=== PATIENT | male | born 1955 | race Caucasian/White ===

== ENCOUNTER 2024-03-30 11:48 | Inpatient (IN) | payer MEDICARE, SELFPAY ==
[2024-03-30] VITALS (16 sets, daily range): BP systolic 109–149; BP diastolic 61–87; PULSE 87–99; RESP 12–21; TEMP 36.6; O2SAT 92–100; BMI 26.2
--- NOTE | ~2024-03-30 | CT_ITS ---
EXAMINATION: CT chest abdomen pelvis w con DATE: 04/06/2024 20:05 INDICATION: nausea and vomiting . TECHNIQUE: Computed tomography (CT) of the chest, abdomen, and pelvis was performed with 100 mL Omnip aque-350 intravenous contrast. Automated exposure control and iterative reconstruction technique were employed. The dose-length product was 1479.66 mGy-cm. COMPARISON: X-ray abdomen from 2:52 PM and 7:23 PM. FINDINGS: Exam limited by beam hardening artifact from arm down positioning. CHEST: Thoracic aorta: No significant dilation. No dissection. Lung parenchyma and airways: Bilateral dependent atelectasis/consolidation. Patent airways. Thoracic inlet, axillae and chest wall: No thyroid or soft tissue mass. No axillary lymphadenopathy. Mediastinum: No mass or lymphadenopathy. Heart and pericardium: Normal heart size. Small pericardial fluid collection. Coronary artery calcifications: Moderate. Pleura: Small bilateral pleural fluid collections. Thoracic bones: No acute osseous finding in the chest. ABDOMEN/PELVIS: Liver: Normal. Biliary/Gallbladder: The gallbladder is distended, with wall thickening and moderate surrounding infl ammatory change. No bile duct dilation. Pancreas: Moderate atrophy. Spleen: Normal. Adrenals:No mass. Kidneys: No suspicious mass, obstructing stone, or hydronephrosis. Simple left renal cyst. GI tract: Marked gastric distention. Gastric wall emphysema at the GE junction, cardiac, and gastric fundus, and to a lesser extent in the gastric body and antrum. Mild distal esophageal wall edema. An NG tube coils in the distal esophagus, turning back on itself to terminate in the upper esophagus, in a position that appears higher than in the prior study indicating possible interval repositioning at tempt. No small or large bowel dilation. Normal appendix. Diverticulosis without diverticulitis. The rectum is dilated to 10.1 cm by formed stool, with mild adjacent wall thickening and inflammatory solomon nge. Mild wall edema and pericolonic inflammatory change in the distal sigmoid and more proximal rect um. Mesentery/Peritoneum: No mass or free air. Small volume fluid in the bilateral paracolic gutters. Min imal perisplenic fluid Retroperitoneum: No mass Atherosclerotic abdominal arterial calcifications. Pelvis: Normal urinary bladder. Prostatomegaly. Soft Tissues: Soft tissues and body wall unremarkable. Abdominopelvic bones: No acute osseous finding in the abdomen/pelvis. Recent right hip arthroplasty, with postsurgical changes overlying the soft tissues of the right hip IMPRESSION: Small pericardial effusion. Small bilateral pleural effusion with likely bibasilar dependent atelectasis. Infection is not exclud ed. Malpositioned NG tube which turns back on itself in the distal esophagus and terminates in the upper esophagus. Gastric emphysema, may be secondary to ischemia and/or emphysematous gastritis. Gallbladder hydrops with moderate inflammatory changes suspicious for cholecystitis. No gallbladder w all emphysema detected (which can be a cause of gastric emphysema). Likely fecal impaction. Distal sigmoid and rectal wall edema may reflect a component of colitis, such as stercoral, infectious, ischemic, or inflammatory. Small volume ascites. Results discussed telephonically with Dr. Nagy by Dr. Ayala at 7:35 PM on 04/06/2024. Reviewed, dictated and finalized at location K. LIFT OPERATOR IMPRESSION: Small pericardial effusion. Small bilateral pleural effusion with likely bibasilar dependent atelectasis. I nfection is not excluded. Malpositioned NG tube which turns back on itself in the distal esophagus and te rminates in the upper esophagus. Gastric emphysema, may be secondary to ischemia and/or emphysematous gastritis. Gallbladder hydrops with moderate inflammatory changes suspicious for cholecyst itis. No gallbladder wall emphysema detected (which can be a cause of gastric e mphysema). Likely fecal impaction. Distal sigmoid and rectal wall edema may reflect a comp onent of colitis, such as stercoral, infectious, ischemic, or inflammatory. Small volume ascites. Results discussed telephonically with Dr. Nagy by Dr. Ayala at 7:35 PM on 04/06.
--- NOTE | ~2024-03-30 | XR_ITS ---
XR chest 1V DATE: 03/30/2024 12:09 INDICATION: Fall. Right subcapital femoral neck fracture TECHNIQUE: AP views COMPARISON: None FINDINGS: Heart size appears within normal range. Mild thoracic aortic calcification and unfolding. Mild prominence of the superior mediastinum and right paratracheal area, possibly related to tortuous great vessels. No tracheal deviation. Mild to moderate elevation of the right diaphragm. No pulmonary infiltrate or consolidation, pleural effusion or pulmonary vascular congestion or pneumo thorax is detected. Old healed posterolateral left seventh rib fracture. IMPRESSION: No active cardiopulmonary disease Reviewed, dictated and finalized at location A. UP / OPERATOR
--- NOTE | ~2024-03-30 | XR_ITS ---
XR hip RT 2V w AP pelvis DATE: 03/30/2024 12:06 INDICATION: Fall TECHNIQUE: AP pelvis. 2 views of right hip. COMPARISON: None FINDINGS: Right subcapital femoral neck fracture. No pelvic fracture or bone destruction. Normal alignment at the pubic symphysis and sacral iliac join ts. Hip joint spaces are symmetric and relatively well preserved. No evidence of fracture or dislocat ion of left hip. IMPRESSION: Right subcapital femoral neck fracture Reviewed, dictated and finalized at location A. ATOR ERECTOR
--- NOTE | ~2024-03-30 | XR_ITS ---
Exam: Abdomen 2V HISTORY: persistent nausea/vomiting COMPARISON: None. TECHNIQUE: Supine images of the abdomen and pelvis. FINDINGS: Massive gaseous distention of the stomach for which urgent decompression is recommended. Fecal stasis within the rectum suggesting fecal impaction. Multiple loops of minimally dilated small bowel are also noted. IMPRESSION: Massive gaseous distention of the stomach for which urgent decompression is recommended. Reviewed, dictated and finalized at location A. NE CLEANER IMPRESSION: Massive gaseous distention of the stomach for which urgent decompression is rec ommended.
--- NOTE | ~2024-03-30 | XR_ITS ---
EXAM: XR abdomen gastric tube insert DATE: 04/06/2024 19:28 HISTORY: Ng tube placement . COMPARISON: X-ray chest 03/30/2024. FINDINGS: An NG tube turns back on itself in the GE junction and terminates in the distal esophagus. Marked gastric distention. Suggestion of gas within the gastric wall. Multiple loops of nondistended large and small bowel in the upper abdomen. IMPRESSION: Malpositioned NG tube. Gastric emphysema, as can be seen with emphysematous gastritis, is chemia, perforated ulcer, and trauma. CT of the chest, abdomen, and pelvis already scheduled but should be performed STAT. Results reported telephonically to Bhanu Price RN by Dr. Ayala at 7:40 PM on 04/06/2024. Reviewed, dictated and finalized at location K. AND PELT GRADER IMPRESSION: Malpositioned NG tube. Gastric emphysema, as can be seen with emphy sematous gastritis, ischemia, perforated ulcer, and trauma. CT of the chest, abdomen, and pelvis already scheduled but should be performed STAT. Results reported telephonically to Bhanu Price RN by Dr. Ayala at 7:40 PM on 04/06/2024.
--- NOTE | ~2024-03-30 | US_ITS ---
EXAMINATION: US carotid duplex BI DATE: 03/30/2024 15:39 FIRE TENDER INDICATION: Syncope TECHNIQUE: Grayscale, color Doppler, and pulsed Doppler images of the cervical carotid arteries were obtained. The degree of vessel stenosis is placed in one of the following categories: normal, <50%, 50-69%, >=7 0% but less than near-occlusion, near-occlusion, or total occlusion. Note that percent stenosis relative to normal distal artery lumen diameter is indirectly measured fro m velocity measurements as described originally by Orlando, et al. Radiology 2003; 229:340-346 and upda sharif by Raj Ceron et al STROKE 2012;43(3);915-921. COMPARISON: None. FINDINGS: There is mild atherosclerosis of both carotid arteries. Peak systolic velocity (in cm/s) is detailed below RIGHT: Right common carotid artery (CCA): 74 cm/s. Right internal carotid artery (ICA) PSV: 91 cm/s. Right ICA end-diastolic velocity (EDV): 15 cm/s. Right ICA/CCA PSV ratio is 1.2. Right external carotid artery (ECA): 124cm/s. There is antegrade flow in the right vertebral artery with a LEFT: Left common carotid artery (CCA): 90 cm/s. Left internal carotid artery (ICA) PSV: 88 cm/s. Left ICA end-diastolic velocity (EDV): 18 cm/s. Left ICA/CCA PSV ratio is 1.0. Left external carotid artery (ECA): 136cm/s. There is antegrade flow in the left vertebral artery. IMPRESSION: 1. Less than 50% stenosis in the right internal carotid artery. 2. Less than 50% stenosis in the left internal carotid artery. Reviewed, dictated and finalized at location A. TENDER
--- NOTE | ~2024-03-30 | XR_ITS ---
EXAMINATION: XR hip RT min 2V DATE: 04/01/2024 19:33 INDICATION: Postoperative evaluation TECHNIQUE: 2 views of the right hip were performed FINDINGS: There is a right total hip arthroplasty in expected position. Subcutaneous gas with soft t issue swelling are consistent with recent surgery. Hardware in good position. IMPRESSION: Expected perioperative appearance of a right total hip arthroplasty. Reviewed, dictated and finalized at location A. ORATE TRAFFIC MANAGER
--- NOTE | ~2024-03-30 | XR_ITS ---
XR knee RT 3V DATE: 03/30/2024 12:55 INDICATION: Fall. Right knee injury, pain TECHNIQUE: 3 views COMPARISON: None FINDINGS: There is prominent osteopenia. No fracture or dislocation or joint effusion is evident. No periosteal reaction or bone destruction. Medial and lateral compartment joint spaces are preserved. Slight particular spurring of the patella. Arterial calcification. IMPRESSION: No fracture or dislocation or joint effusion is detected Osteopenia Reviewed, dictated and finalized at location A. ER SPEC
--- NOTE | ~2024-03-30 | XR_ITS ---
Portable chest x-ray Comparison: 04/06/2024 Clinical History: NG tube placement Findings: NG tube is present, however this called back upon itself at the level of the GE junction, with tip projecting back superiorly only to the level of the thoracic inlet. There is left basilar ai rspace consolidation. Right lung clear. Cardiomediastinal silhouette is stable. Bones and soft tissu es are unremarkable. Impression: Malpositioned NG tube, as detailed above, which is curled back upon itself at the level of the GE mian ction with tip projecting back superiorly all the way to the thoracic inlet. Replacement/repositionin g is required. Left basilar consolidation, suspicious for pneumonia. Reviewed, dictated and finalized at location M. NESS TEAM LEADER Impression: Malpositioned NG tube, as detailed above, which is curled back upon itself at t he level of the GE junction with tip projecting back superiorly all the way to the thoracic inlet. Replacement/repositioning is required. Left basilar consolidation, suspicious for pneumonia.
[2024-03-30 11:57] LABS: Basophils Percent Auto 0.2 % (0.2-1.2); Eosinophils Percent Auto 0.3 % (0-4.4); Hematocrit 42.8 % (42.0-52.0); Hemoglobin 15.2 g/dL (14.0-18.0); Immature Granulocyte Absolute 0.11 K/mm3 (0.00-0.031); Immature Granulocyte Percent A 0.7 % (0-0.5); Lymphocytes Absolute Auto 1.44 K/mm3 (0.9-3.2); Lymphocytes Percent Auto 9.5 % (18.3-44.2); Mean Corpuscular HGB Conc 35.5 g/dl (32-36); Mean Corpuscular Hemoglobin 30.6 pg (26-34); Mean Corpuscular Volume 86.3 fl (80-100); Mean Platelet Volume 10.2 fl (7.4-10.4); Monocytes Percent Auto 6.8 % (2.6-8.5); Neutrophils Absolute Auto 12.5 K/mm3 (1.3-6.7); Neutrophils Percent Auto 82.5 % (45.5-73.1); Platelet Count Result 206 k/mm3 (150-375); Red Blood Count 4.96 M/mm3 (4.6-6.20); Red Cell Distribution Width 12.2 % (11.5-14.5); White Blood Count 15.1 K/mm3 (4.5-10.0)
[2024-03-30 12:09] LABS: Alanine Aminotransferase 13 U/L (6-50); Albumin Level 4.2 g/dL (3.5-5.1); Alkaline Phosphatase 64 U/L (38-126); Anion Gap 14 mmol/L (4-12); Aspartate Amino Transferase 19 U/L (17-59); Bilirubin,Total 2.1 mg/dL (0.2-1.3); Blood Urea Nitrogen 24 mg/dL (9-20); Calcium 9.4 mg/dL (8.4-10.2); Carbon Dioxide 23 mmol/L (22-30); Chloride 94 mmol/L (98-107); Estimated CRCL calculation 100 ml/min; Estimated Glomerular Filt Rate > 60; Glucose 300 mg/dL (65-110); Potassium 3.6 mmol/L (3.4-5.0); Sodium 131 mmol/L (137-145)
[2024-03-30 12:12] LABS: INR 1.1; Prothrombin Time 14.8 Seconds (11.1-14.7)
[2024-03-30 12:13] LABS: Partial Thromboplastin Time 28.6 Seconds (22.3-36.8)
[2024-03-30 12:39] LABS: Creatine Kinase 213 U/L (55-170)
--- NOTE | 2024-03-30 12:44 | ED.FALL ---
HPI - Fall General Chief Complaint: Fall Stated Complaint: fa Time Seen by Provider: 03/30/24 11:50 Source: patient and family () Mode of arrival: EMS Limitations: physical limitation History of Present Illness HPI Narrative: Patient presents after a fall that occurred on . Patient states that got up out of bed quickly and it was also dark at the time. He notes that he got dizzy and experienced flashes of light before fainting , losing consciousness and muscle tone. He initially landed on his back and had immediate right hip pain. He was able to scoot from the living room to the bedroom using his left where he laid on the ground since the day of the incident. For his diabetes he is with lispro short acting insuling. Blood glucose 312mg/dL. He is also complaining of right knee pain. His last oral intake was on . He denies being on anticoagulation. Related Data Home Medications ?Medication ?Instructions ?Recorded ?Confirmed ?Last Taken ?Type B12 BYMOUTH 02/15/22 02/15/22 Unknown History cholecalciferol (vitamin D3) 1,250 1,250 mcg PO WEEKLY 02/15/22 03/30/24 Unknown History mcg (50,000 unit) capsule insulin NPH isoph U-100 human 100 88 unit subcut BID 02/15/22 03/30/24 03/28/24 History unit/mL (3 mL) subcutaneous pen (Humulin N NPH U-100 Insulin KwikPen) levothyroxine 200 mcg tablet 200 mcg PO DAILY 02/15/22 03/30/24 03/28/24 History (Synthroid) lisinopril 20 mg tablet 20 mg PO DAILY 02/15/22 03/30/24 03/28/24 History Allergies Allergy/AdvReac Type Severity Reaction Status Date / Time No Known Allergies Allergy Verified 03/30/24 12:14 [facility] Past Medical History Medical History (Updated 03/30/24 @ 21:15 by Jackie Diaz PA-C) Diabetic peripheral neuropathy Hypertension Hyperlipidemia Hypothyroidism Insulin dependent diabetes mellitus Surgical History Surgical History (Updated 03/30/24 @ 21:15 by Jackie Diaz PA-C) History of cataract extraction with lens replacement History of meniscectomy of right knee History of colonoscopy with polypectomy Social History Social History (Updated 03/30/24 @ 21:51 by Suellen Deras MD) Social History: Surrogate medical decision maker: Iwona Ford, spouse ([phone]). Code status: Full code. Smoking status: Never smoker Second hand tobacco smoke exposure: Yes Alcohol intake: former Alcohol use details: 5-6 weekly beers Substance use: never Do You Feel Safe in your Home?: Yes Lack of Transportation: No Lack of Food: Sometimes True Current Housing: I Have Housing Concerned About Future Housing: No Difficulty Paying Gas/Electric Bills: No Difficulty Paying for Meds: No Currently Unemployed: Decline to Answer Education: Decline to Answer Difficulty w/ Childcare or Family Care: No Living arrangements: with family Additional living arrangements comments: Spiritual care concerns: No Exam Narrative: GENERAL: Well-appearing, well-nourished, and in no acute distress. HEAD: Normocephalic, atraumatic. EYES: Non injected, non icteric ENT: Nares clear, no rhinorrhea or epistaxis. Tacky mucous membranes NECK: Supple. CHEST: Speaking in full sentences. No respiratory distress. HEART: Regular rate and rhythm. ABDOMEN: Soft, nondistended. EXTREMITIES: Full Range of motion assessment limited secondary to pain but is able to perform some slight flexion and extension at the knee. Right leg appears rotated externally as well as some shortening. No palpable effusion at right knee. SKIN: Warm, dry, no rash. NEURO: No focal deficits. Alert and oriented x3. PSYCH: Normal mood and affect. Course Vital Signs Vital signs: Vital Signs Temperature 97.8 F 03/30/24 11:28 Pulse Rate 87 03/30/24 11:28 Respiratory Rate 17 03/30/24 11:28 Blood Pressure 149/78 H 03/30/24 11:28 Pulse Oximetry 99 03/30/24 11:28 Oxygen Delivery Room Air 03/30/24 11:28 Temperature 97.8 F 03/30/24 20:25 Pulse Rate 93 03/30/24 20:25 Respiratory Rate 14 03/30/24 20:25 Blood Pressure 130/70 03/30/24 20:25 Pulse Oximetry 95 03/30/24 20:25 Oxygen Delivery Room Air 03/30/24 11:28 MDM - Fall MDM Narrative Medical decision making narrative: Patient presents for was initially described as a fall that occurred on . He has subsequently been lying on the floor. In the emergency department they are afebrile with acceptable vital signs, mild hypertension. Patient states it was not a mechanical fall but rather he stood up out of bed and then became dizzy and saw flashes before he had what appears to be a syncopal episode given that he lost muscle tone and consciousness. Patient given analgesic medication given the obvious femur fracture. He does state that he has been nauseated since as well; Zofran ordered. Given his tacky mucous membranes, will also give 1 L IV fluids. This will also help with patient's hyperglycemia that shows an anion gap but no salvador acidosis. I suspect this to be due to starvation given his KENDRA was on . Patient discussed with on-call orthopedic surgeon Dr Johns. He has a leukocytosis. His hyponatremia of 131 corrects to 134-136 in the setting of hyperglycemia, still present but improved (partial pseudohyponatremia). CPK only mildly elevated, less than expected given duration of time on the ground. Mild azotemia however creatinine is normal. He has an elevated bilirubin. Urine with ketonuria, glucosuria, and proteinuria but otherwise without signs of infection. Ddx indirect hyperbilirubinemia Over production of bilirubin (hemolytic anemia), reduced uptake (cirrhosis or congestive hepatopathy), impaired conjugation, biliary obstruction, hereditary disease (Gilbert syndrome, Jailene-Antoine syndrome, Crigler-Buzz syndrome), medication side effect (allopurinol, anabolic steroids, antibiotics, antimalarials, etc.) Discussed patient with on-call hospitalist Jason ROGERS who recommends admission to a medical surgery telemetry floor given further workup for syncope of unknown etiology. Patient did confirm code status is full code. Diabetes appears poorly controlled given hemoglobin A1c of greater than 10%. Differential Diagnosis Differential diagnosis: Likely syncope, compression fracture, concussion with loss of consciousness, concussion without loss of consciousness and other (Intracranial hemorrhage, hip fracture/dislocation, rhabdomyolysis, spectrum of syncope (tachyarrhythmia/Keenan dysrhythmia, vasovagal, orthostatic, etc.)) Lab Data Attestation: I reviewed the patient's lab results. 03/30/24 11:52 03/30/24 11:52 Labs: Lab Results 03/30/24 03/30/24 03/30/24 Range/Units 11:52 13:04 14:02 WBC 15.1 H (4.5-10.0) K/mm3 RBC 4.96 (4.6-6.20) M/mm3 Hgb 15.2 (14.0-18.0) g/dL Hct 42.8 (42.0-52.0) % MCV 86.3 (80-100) fl MCH 30.6 (26-34) pg MCHC 35.5 (32-36) g/dl RDW 12.2 (11.5-14.5) % Plt Count 206 (150-375) k/mm3 MPV 10.2 (7.4-10.4) fl Immature Gran % (Auto) 0.7 H (0-0.5) % Neut % (Auto) 82.5 H (45.5-73.1) % Lymph % (Auto) 9.5 L (18.3-44.2) % [place] % (Auto) 6.8 (2.6-8.5) % Eos % (Auto) 0.3 (0-4.4) % Baso % (Auto) 0.2 (0.2-1.2) % Lymph # (Auto) 1.44 (0.9-3.2) K/mm3 [place] # (Auto) 1.0 H (0.1-0.6) K/mm3 Eos # (Auto) 0.0 (0-0.3) K/mm3 Baso # (Auto) 0.0 (0.0-0.1) K/mm3 Abs Immat Gran (auto) 0.11 H (0.00-0.031) K/mm3 Absolute Neuts (auto) 12.5 H (1.3-6.7) K/mm3 Absolute Nucleated RBC 0.000 (0.0-0.012) K/mm3 Nucleated RBC % 0.0 (0.0-0.2) % PT 14.8 H (11.1-14.7) Seconds INR 1.1 APTT 28.6 (22.3-36.8) Seconds Sodium 131 L (137-145) mmol/L Potassium 3.6 (3.4-5.0) mmol/L Chloride 94 L (98-107) mmol/L Carbon Dioxide 23 (22-30) mmol/L Anion Gap 14 H (4-12) mmol/L BUN 24 H (9-20) mg/dL Creatinine 0.67 L (0.7-1.3) mg/dL Estim Creat Clear Calc 100 ml/min Estimated GFR > 60 (59 - ) Glucose 300 H (65-110) mg/dL Hemoglobin A1c 10.3 H (<5.7) % Calcium 9.4 (8.4-10.2) mg/dL Total Bilirubin 2.1 H (0.2-1.3) mg/dL Direct Bilirubin 0.0 (0-0.3) mg/dL Indirect Bilirubin 1.3 H (0-1.1) mg/dL AST 19 (17-59) U/L ALT 13 (6-50) U/L Alkaline Phosphatase 64 (38-126) U/L Total Creatine Kinase 213 H (55-170) U/L Troponin I < 0.012 (0.000-0.034) ng/mL Total Protein 7.0 (6.3-8.2) g/dL Albumin 4.2 (3.5-5.1) g/dL Urine Color Yellow (Yellow) Urine Appearance Clear (Clear) Urine pH 5.5 (5.0-9.0) Ur Specific [place] 1.039 H (1.001-1.035) Urine Protein 1+ H (Negative) mg/dL Urine Glucose (UA) 3+ H (Negative) mg/dL Urine Ketones 4+ H (Negative) mg/dL Ur Blood (Man) Negative (Negative) Urine Nitrate Negative (Negative) Urine Bilirubin Negative (Negative) Urine Urobilinogen 1.0 (<2.0) mg/dL Leukocyte Esterase Rfl Negative (Negative) RAKESH/UL Urine RBC 0-2 (0-2) /hpf Urine WBC 0-5 (0-3) /hpf Ur Squamous Epith Cells None seen (Few) /hpf Urine Bacteria None seen /hpf Urine Casts 3-5 Influenza A (RT-PCR) Negative (Negative) Influenza B (RT-PCR) Negative (Negative) RSV (RT-PCR) Negative (Negative) SARS-CoV-2 RNA (RT-PCR) Negative (Negative) Imaging Data Attestation: I personally reviewed and interpreted this imaging study as follows: My impression: Obvious right femoral head/neck fracture Radiologist's impression: Impressions Hip/Pelvis X-Ray 03/30/24 12:17 IMPRESSION: Right subcapital femoral neck fracture Chest X-Ray 03/30/24 12:18 IMPRESSION: No active cardiopulmonary disease Knee X-Ray 03/30/24 13:05 IMPRESSION: No fracture or dislocation or joint effusion is detected Osteopenia ECG Data EKG #1: Attestation: I personally reviewed and interpreted this ECG as follows: ECG completion date: 03/30/24 ECG completion time: 13:06 Interpretation: Normal sinus rhythm at a rate of 90 beats per minute. Patient does have some PVCs. [place] interval 140. QRS 102. QT/QTC 388/435. Poor R-wave progression across the precordial leads. Poor baseline longer/artifact limits full interpretation and there may be T-wave inversion in lead 3 but otherwise appears potentially flat in AVF but otherwise not inverted and is upright in contiguous inferior lead 2. No other T-wave inversions. Discharge Plan Discharge Clinical Impression: Leukocytosis, Hyperglycemia due to diabetes mellitus, Hyponatremia, Elevated CPK, Azotemia, Osteopenia determined by x-ray, Ketonuria, Glucosuria, Proteinuria, Indirect hyperbilirubinemia, Poorly controlled diabetes mellitus Fall Qualifiers: Encounter type: initial encounter Qualified Code(s): W19.XXXA - Unspecified fall, initial encounter Closed subcapital fracture of femur Qualifiers: Encounter type: initial encounter Laterality: right Qualified Code(s): S72.011A - Unspecified intracapsular fracture of right femur, initial encounter for closed fracture Syncope Qualifiers: Encounter type: sequela Patient Disposition: Still a Patient Condition: Stable
[2024-03-30] MEDS: HYDROcodone/acetaminophen (*CRX) 5-325 MG TABLET 1 TAB PO (12:56)
--- NOTE | 2024-03-30 12:56 | ECG_ITS ---
Test Date: 2024-03-30 13:06:56 Measurements Intervals [place] Rate: 90 P: 44 IA: 140 QRS: -60 QRSD: 102 T: -8 QT: 388 QTc: 475 Interpretive Statements SINUS RHYTHM WITH OCCASIONAL SUPRAVENTRICULAR PREMATURE COMPLEXES POSSIBLE ANTERIOR AND INFERIOR MYOCARDIAL INFARCTION , PROBABLY OLD [30 ms Q WAVE IN V3/V4, OR R < 0.2 mV IN V4] ABNORMAL ECG No previous ECG available for comparison Electronically Signed On 03-30-2024 15:34:38 GUEST RELATIONS MANAGER by Ovidio Hill M.D.
[2024-03-30] MEDS: SODIUM CHLORIDE 0.9% IV 1,000 ML 999 ML IV CONT (13:08)
[2024-03-30] MEDS: ONDANSETRON INJ 4 MG/2 ML VIAL IV PUSH (13:09)
[2024-03-30 13:25] LABS: Troponin I < 0.012 ng/mL (0.000-0.034)
[2024-03-30 13:46] LABS: Influenza A QL RT-PCR Negative (Negative); Influenza B QL RT-PCR Negative (Negative); RSV RNA, RT-PCR Negative (Negative); SARS-CoV-2 RNA PCR Negative (Negative)
[2024-03-30] MEDS: HYDROmorphone HCL INJ (*CRX) 1 MG/ML SYR 0.5 MG IV PUSH (14:00)
[2024-03-30 14:02] LABS: Bilirubin Indirect 1.3 mg/dL (0-1.1)
[2024-03-30 14:13] LABS: Add Urine Microscopic? YES; Appearance Urine Clear (Clear); Bacteria Urine None Seen /hpf; Bilirubin Urine Negative (Negative); Blood Urine Negative (Negative); Color Urine Yellow (Yellow); Glucose Urine UA 3+ mg/dL (Negative); Ketones Urine 4+ mg/dL (Negative); Leukocyte Esterase Ur Negative LEU/UL (Negative); Nitrate Urine Negative (Negative); Protein Urine 1+ mg/dL (Negative); RBC Urine 0-2 /hpf (0-2); Specific Grav Ur 1.039 (1.001-1.035); Squamous Epithelial Cell Urine None Seen /hpf (Few); WBC Urine 0-5 /hpf (0-3); pH Urine 5.5 (5.0-9.0)
--- NOTE | 2024-03-30 14:30 | PM.IMHP ---
H&P: HPI History of Present Illness Date/Time: 03/30/24 14:30 Chief Complaint: Right hip pain. Narrative: This is a 69-year-old male with insulin-dependent diabetes, diabetic neuropathy, hypertension, hyperlipidemia, and hypothyroidism who presented to the emergency department via EMS from home for evaluation of right hip pain after a fall. The patient provides the following history. On afternoon he sat up rather quickly to get something in the living room and shortly thereafter he began to feel lightheaded and dizzy. He then had a brief loss of consciousness and woke up on the floor on his right side. He had immediate pain in the right hip and knee and was unable to get himself up. He has apparently been on the floor since that time and he refused to allow his to call 911 until today when their son came and talked him into it. also states that he has had hardly anything to eat in the last 3 days in his had multiple episodes of emesis. Aside from the right hip pain, he does not have any new complaints. He has a history of syncope for which he has been hospitalized and was told it was likely a vasovagal syncope. He does not recall having sensations of racing heart, palpitations, chest pain, pleuritic pain, or shortness of breath prior to the event. He also denies fever, chills, sweats, cold and flu symptoms, hematemesis, diarrhea, and dysuria. In the ED: He was afebrile on arrival with stable vital signs.? Labs are significant for WBC count of 15.1, sodium 131, chloride 94, anion gap 14, BUN 24, creatinine 0.60, glucose 300, total bilirubin 2.1, CK 213, troponin less than 0.012. He tested negative for influenza, RSV, and COVID. Radiographs showed a right subcapital femoral neck fracture and he is being admitted in this setting for pain control and orthopedic consultation. Review of Systems Review of Systems: 12 systems were reviewed and are negative except for as per HPI. [facility] Past Medical History Medical History (Updated 03/30/24 @ 21:15 by Jackie Diaz PA-C) Diabetic peripheral neuropathy Hypertension Hyperlipidemia Hypothyroidism Insulin dependent diabetes mellitus Surgical History Surgical History (Updated 03/30/24 @ 21:15 by Jackie Diaz PA-C) History of cataract extraction with lens replacement History of meniscectomy of right knee History of colonoscopy with polypectomy Social History Social History (Updated 03/30/24 @ 21:16 by Jackie Diaz PA-C) Social History: Surrogate medical decision maker: Iwona Ford, spouse ([phone]). Code status: Full code. Smoking status: Never smoker Second hand tobacco smoke exposure: Yes Alcohol intake: former Alcohol use details: 5-6 weekly beers Substance use: never Do You Feel Safe in your Home?: Yes Lack of Transportation: No Lack of Food: Sometimes True Current Housing: I Have Housing Concerned About Future Housing: No Difficulty Paying Gas/Electric Bills: No Difficulty Paying for Meds: No Currently Unemployed: Decline to Answer Education: Decline to Answer Difficulty w/ Childcare or Family Care: No Spiritual care concerns: No Meds Home Medications and Allergies Home Medications ?Medication ?Instructions ?Recorded ?Confirmed ?Type B12 BYMOUTH 02/15/22 02/15/22 History cholecalciferol (vitamin D3) 1,250 1,250 mcg PO WEEKLY 02/15/22 03/30/24 History mcg (50,000 unit) capsule insulin NPH isoph U-100 human 100 88 unit subcut BID 02/15/22 03/30/24 History unit/mL (3 mL) subcutaneous pen (Humulin N NPH U-100 Insulin KwikPen) insulin regular hum U-500 conc 500 See Rx Instructions subcut 02/15/22 03/30/24 Rx unit/mL(3 mL) subcut pen (Humulin BIDWMEAL 90 days #30 mL R U-500 (Conc) Insulin Kwikpen) levothyroxine 200 mcg tablet 200 mcg PO DAILY 02/15/22 03/30/24 History (Synthroid) lisinopril 20 mg tablet 20 mg PO DAILY 02/15/22 03/30/24 History rosuvastatin 5 mg tablet 5 mg PO DAILY #90 tabs 02/15/22 03/30/24 Rx Allergies Allergy/AdvReac Type Severity Reaction Status Date / Time No Known Allergies Allergy Verified 03/30/24 12:14 Vital Signs Vital Signs - 24 hr 03/30/24 11:28 Temperature 97.8 F Pulse Rate 87 Respiratory Rate 17 Blood Pressure 149/78 H Pulse Oximetry 99 Oxygen Delivery Room Air Exam Narrative: General: Nontoxic-appearing gentleman supine in bed in no acute distress. Weight: 90.4 kg. BMI: 26.3. HEENT: Small abrasion on the bridge of the right side of the nose. PERRL, EOMI. Sclera anicteric. Tacky mucous membranes. Neck: Supple. No midline vertebral tenderness. Respiratory: Lungs are clear to auscultation bilaterally. Cardiovascular: Regular rate and rhythm with S1-S2. Gastrointestinal: Abdomen is soft, nontender, and nondistended with positive bowel sounds. Skin: Warm and dry. Scattered excoriations on the chest. Small abrasion on the elbow. Extremities: No cyanosis, clubbing, or edema. Radial and pedal pulses intact. Musculoskeletal: Right lower extremity shortened and externally rotated. Mild swelling about the hip. Neurological: Alert. Cranial nerves 2-12 are grossly intact. No gross focal deficits to casual conversation. Psychiatric: Pleasant and cooperative with normal mood and affect. H&P: Results Labs Labs: Short CBC 03/30/24 Range/Units 11:52 WBC 15.1 H (4.5-10.0) K/mm3 Hgb 15.2 (14.0-18.0) g/dL Hct 42.8 (42.0-52.0) % Plt Count 206 (150-375) k/mm3 BMP 03/30/24 11:52 Sodium 131 L Potassium 3.6 Chloride 94 L Carbon Dioxide 23 BUN 24 H Creatinine 0.67 L Glucose 300 H Calcium 9.4 Cardiac Enzymes 03/30/24 Range/Units 11:52 Total Creatine Kinase 213 H (55-170) U/L Troponin I < 0.012 (0.000-0.034) ng/mL Liver Function 03/30/24 Range/Units 11:52 Total Bilirubin 2.1 H (0.2-1.3) mg/dL Direct Bilirubin 0.0 (0-0.3) mg/dL AST 19 (17-59) U/L ALT 13 (6-50) U/L Alkaline Phosphatase 64 (38-126) U/L Albumin 4.2 (3.5-5.1) g/dL Impressions Hip/Pelvis X-Ray 03/30/24 12:17 IMPRESSION: 1. Right subcapital femoral neck fracture. Chest X-Ray 03/30/24 12:18 IMPRESSION: 1. No active cardiopulmonary disease. Knee X-Ray 03/30/24 13:05 IMPRESSION: 1. No fracture or dislocation or joint effusion is detected. 2. Osteopenia. Assessment and Plan Assessment and plan (1) Closed subcapital fracture of right femur: Code(s): S72.011A - Unspecified intracapsular fracture of right femur, initial encounter for closed fracture Status: Acute (2) Syncope: Qualifiers: Encounter type: sequela Code(s): R55 - Syncope and collapse Status: Acute (3) Insulin dependent diabetes mellitus: Status: Acute (4) Hypertension: Code(s): I10 - Essential (primary) hypertension Status: Acute (5) Hypothyroidism: Code(s): E03.9 - Hypothyroidism, unspecified Status: Acute (6) Hyperlipidemia: Code(s): E78.5 - Hyperlipidemia, unspecified Status: Acute Plan The patient presented to the emergency department via EMS for evaluation of right hip pain after a fall related to syncope on as detailed in HPI. Labs, imaging, EKG, and all reports were personally reviewed. He has a history of syncope and was hospitalized a few years ago and was told at that time was likely vasovagal syncope. Monitor on telemetry. Echocardiogram and carotid Doppler ultrasounds have been ordered for a syncopal workup. He will be NPO after midnight for probable surgical repair tomorrow. Total CK is very mildly elevated and will be monitored. Glucose is near normal when corrected for sodium. Fractionate bilirubin and monitor. Anion gap is a bit elevated though serum carbon dioxide is within normal limits. Repeat BMP and check beta hydroxybutyrate as his urinalysis is positive for ketones however that may very well be due to the fact that he has not had much to eat in the last 3 days. Continue basal insulin. Initiate sliding scale insulin, Accu-Cheks, and hypoglycemic protocol. Blood pressures were reviewed and they are stable. His home medications will be reviewed and resumed as appropriate. Findings and treatment plan were discussed with the patient. Questions were solicited and answered to satisfaction. The patient's medical management will be taken over by the hospitalist team in a.m. Quality VTE Prophylaxis VTE prophylaxis: mechanical ordered If No VTE Prophylaxis Answer both mechanical and pharmacologic: Reason no pharmacologic proph: medical contraindication (anticipate surgery tomorrow) Hospitalist [facility] Advance Care Plan I have confirmed that the patient's Advanced Care Plan is present, code status is documented, or surrogate decision maker is listed in patient medical record.: Yes Medication Reconciliation I have utilized all available resources to obtain, update and review the patients current medications (includes all prescriptions, OTC, herbals, cannabis, and nutritional supplements).: Yes
[2024-03-30 15:07] LABS: Hemoglobin A1C 10.3 % (<5.7)
--- NOTE | 2024-03-30 18:45 | PC.NURSE ---
This patient, Luis Daniel Ford, was admitted to [facility] Surg Room 325-02. Patient/family oriented to hospital policies and general routines including ID bracelet, bed and alarms, visiting hours, pain management, procedures, bathroom and other care routines, personal items, smoking policy, room service/diet, and visiting hours. Information on how to activate the Rapid Response Team has been discussed. Patient/Family are encouraged to report perceived risks to care and to ask questions if they do not understand what they are told or what they should do.
[2024-03-30 19:15] LABS: Glucose Point of Care 330 mg/dl (65-105)
[2024-03-30] MEDS: INSULIN ASPART (*BKC) 100 UNITS/ML SUB-Q (21:12)
[2024-03-30 22:10] LABS: Anion Gap 9 mmol/L (4-12); Blood Urea Nitrogen 24 mg/dL (9-20); Calcium 8.8 mg/dL (8.4-10.2); Carbon Dioxide 24 mmol/L (22-30); Chloride 97 mmol/L (98-107); Estimated CRCL calculation 119 ml/min; Estimated Glomerular Filt Rate > 60; Glucose 272 mg/dL (65-110); Potassium 3.7 mmol/L (3.4-5.0); Sodium 130 mmol/L (137-145)
[2024-03-30 23:16] LABS: Beta-Hydroxybutyrate/Acetoacetate 2.37 mmol/L (0.02-0.27)
[2024-03-30] MEDS: SODIUM CHLORIDE 0.9% IV 1,000 ML 100 ML IV CONT (23:29)
[2024-03-31] VITALS (7 sets, daily range): BP systolic 139–149; BP diastolic 56–75; PULSE 78–90; RESP 12–16; TEMP 36.8–37.2; O2SAT 94
[2024-03-31 06:42] LABS: Basophils Absolute Auto 0.1 K/mm3 (0.0-0.1); Basophils Percent Auto 0.6 % (0.2-1.2); Eosinophils Absolute Auto 0.1 K/mm3 (0-0.3); Eosinophils Percent Auto 0.6 % (0-4.4); Hematocrit 40.7 % (42.0-52.0); Hemoglobin 14.2 g/dL (14.0-18.0); Immature Granulocyte Absolute 0.08 K/mm3 (0.00-0.031); Immature Granulocyte Percent A 0.9 % (0-0.5); Lymphocytes Absolute Auto 1.03 K/mm3 (0.9-3.2); Lymphocytes Percent Auto 11.5 % (18.3-44.2); Mean Corpuscular HGB Conc 34.9 g/dl (32-36); Mean Corpuscular Hemoglobin 30.3 pg (26-34); Mean Platelet Volume 10.2 fl (7.4-10.4); Monocytes Absolute Auto 0.7 K/mm3 (0.1-0.6); Monocytes Percent Auto 8.1 % (2.6-8.5); Neutrophils Percent Auto 78.3 % (45.5-73.1); Platelet Count Result 165 k/mm3 (150-375); Red Blood Count 4.68 M/mm3 (4.6-6.20); Red Cell Distribution Width 11.9 % (11.5-14.5)
[2024-03-31 06:57] LABS: Alanine Aminotransferase 11 U/L (6-50); Albumin Level 3.5 g/dL (3.5-5.1); Alkaline Phosphatase 52 U/L (38-126); Anion Gap 6 mmol/L (4-12); Aspartate Amino Transferase 21 U/L (17-59); Bilirubin,Total 1.8 mg/dL (0.2-1.3); Blood Urea Nitrogen 21 mg/dL (9-20); Calcium 8.4 mg/dL (8.4-10.2); Carbon Dioxide 28 mmol/L (22-30); Chloride 98 mmol/L (98-107); Estimated CRCL calculation 121 ml/min; Estimated Glomerular Filt Rate > 60; Glucose 244 mg/dL (65-110); Magnesium 2.1 mg/dL (1.6-2.3); Potassium 3.4 mmol/L (3.4-5.0); Sodium 132 mmol/L (137-145)
[2024-03-31 07:31] LABS: Creatine Kinase 247 U/L (55-170)
[2024-03-31 07:52] LABS: Glucose Point of Care 413 mg/dl (65-105)
[2024-03-31 08:05] LABS: Glucose Point of Care 250 mg/dl (65-105)
--- NOTE | 2024-03-31 08:07 | PC.NURSE ---
glucose on a.m labs 244, initial accucheck result was 413 performed by FIELD MARKETING TEAM LEADER, I repeated test to confirm result and it showed 250, charge nurse notified of discrepancy
[2024-03-31 10:06] LABS: Total Triiodothyronine (T3) 0.95 NG/ML (0.97-1.69)
[2024-03-31 11:22] LABS: Glucose Point of Care 313 mg/dl (65-105)
[2024-03-31 11:40] LABS: Glucose Point of Care 225 mg/dl (65-105)
--- NOTE | 2024-03-31 15:27 | P.CONOP_ITS ---
Assessment and Plan Assessment and plan (1) Closed subcapital fracture of femur: Qualifiers: Encounter type: initial encounter Laterality: right Q ualified Code(s): S72.011A - Unspecified intracapsular fracture of right femur, initial encounter for closed fracture <DEIDRE Dumont - Last Filed: 03/31/24 16:41> Code(s): S72.019A - Unspecified intracapsular fracture of unspecified femur, initial encounter for closed fracture <DEIDRE Dumont - Last Filed: 03/31/24 16:41> Status: Acute <DEIDRE Dumont - Last Filed: 03/31/24 16:41> Assessment and Plan: Displaced right hip femoral neck fracture will benefit from bipolar hemiarthroplasty. We discussed the risks, benefits, and alternatives to surgery. Plan for Press-Fit hip. Proceed with bipolar hemiarthroplasty right hip. <Ugo Johns MD - Last Filed: 03/31/24 17:14> History of Present Illness HPI Consult date: 03/31/24 <DEIDRE Dumont - Last Filed: 03/31/24 16:41> 03/31/24 <Ugo Johns MD - Last Filed: 03/31/24 17:14> Chief complaint: R subcapital femur fx, syncope <DEIDRE Dumont - Last Filed: 03/31/24 16:41> Narrative: Patient fell 03/27/24 in his home. History of diabetes, HTN, HLD. Laid on the floor and did not let his call 911 until yesterday. He only ate minimally over the 3 days. No other complains. He is retired. Typical ambulator without gait aids. Notes he is not very active. <DEIDRE Dumont - Last Filed: 03/31/24 16:41> Review of Systems 2 Review of Systems: All systems reviewed & are unremarkable except as noted in HPI and below <DEIDRE Dumont - Last Filed: 03/31/24 16:41> [facility] Past Medical History Medical History: Medical History (Updated 03/31/24 @ 17:11 by Ugo Johns MD) Diabetic peripheral neuropathy Hypertension Hyperlipidemia Hypothyroidism Insulin dependent diabetes mellitus <DEIDRE Dumont - Last Filed: 03/31/24 16:41> Surgical History Surgical History: Surgical History (Updated 03/30/24 @ 21:15 by Jackie Diaz PA-C) History of cataract extraction with lens replacement History of meniscectomy of right knee History of colonoscopy with polypectomy <DEIDRE Dumont - Last Filed: 03/31/24 16:41> Social History Social History: Social History (Updated 03/30/24 @ 21:51 by Suellen Deras MD) Social History: Surrogate medical decision maker: Iwona Ford, spouse ([phone]). Code status: Full code. Smoking status: Never smoker Second hand tobacco smoke exposure: Yes Alcohol intake: former Alcohol use details: 5-6 weekly beers Substance use: never Do You Feel Safe in your Home?: Yes Lack of Transportation: No Lack of Food: Sometimes True Current Housing: I Have Housing Concerned About Future Housing: No Difficulty Paying Gas/Electric Bills: No Difficulty Paying for Meds: No Currently Unemployed: Decline to Answer Education: Decline to Answer Difficulty w/ Childcare or Family Care: No Living arrangements: with family Additional living arrangements comments: Spiritual care concerns: No <DEIDRE Dumont - Last Filed: 03/31/24 16:41> Meds Home Medications and Allergies Home medications: Home Medications ?Medication ?Instructions ?Recorded ?Confirmed ?Type B12 BYMOUTH 02/15/22 02/15/22 History cholecalciferol (vitamin D3) 1,250 1,250 mcg PO WEEKLY 02/15/22 03/30/24 History mcg (50,000 unit) capsule insulin NPH isoph U-100 human 100 88 unit subcut BID 02/15/22 03/30/24 History unit/mL (3 mL) subcutaneous pen (Humulin N NPH U-100 Insulin KwikPen) insulin regular hum U-500 conc 500 See Rx Instructions subcut 02/15/22 03/30/24 Rx unit/mL(3 mL) subcut pen (Humulin BIDWMEAL 90 days #30 mL R U-500 (Conc) Insulin Kwikpen) levothyroxine 200 mcg tablet 200 mcg PO DAILY 02/15/22 03/30/24 History (Synthroid) lisinopril 20 mg tablet 20 mg PO DAILY 02/15/22 03/30/24 History rosuvastatin 5 mg tablet 5 mg PO DAILY #90 tabs 02/15/22 03/30/24 Rx <DEIDRE Dumont - Last Filed: 03/31/24 16:41> Allergies/Adverse reactions: Allergies Allergy/AdvReac Type Severity Reaction Status Date / Time No Known Allergies Allergy Verified 03/30/24 12:14 <DEIDRE Dumont - Last Filed: 03/31/24 16:41> Vital Signs Vital Signs - 24 hr 03/30/24 15:46 03/30/24 16:01 03/30/24 16:17 Temperature Pulse Rate 89 91 89 Respiratory Rate 19 19 16 Blood Pressure 124/73 130/83 109/61 Pulse Oximetry 95 97 96 Oxygen Delivery 03/30/24 16:31 03/30/24 17:01 03/30/24 17:46 Temperature Pulse Rate 91 92 89 Respiratory Rate 13 20 18 Blood Pressure 128/77 115/74 124/68 Pulse Oximetry 96 96 92 Oxygen Delivery 03/30/24 18:01 03/30/24 18:16 03/30/24 20:00 Temperature Pulse Rate 96 92 Respiratory Rate 18 19 Blood Pressure 111/67 120/69 Pulse Oximetry 95 97 Oxygen Delivery Room Air 03/30/24 20:25 03/31/24 00:00 03/31/24 04:00 Temperature 97.8 F Pulse Rate 93 78 90 Respiratory Rate 14 Blood Pressure 130/70 Pulse Oximetry 95 Oxygen Delivery 03/31/24 04:42 03/31/24 07:26 03/31/24 08:00 Temperature 98.3 F Pulse Rate 88 83 Respiratory Rate 14 Blood Pressure 139/75 Pulse Oximetry 94 Oxygen Delivery Room Air 03/31/24 08:00 03/31/24 14:00 Temperature 98.7 F Pulse Rate 839 H 86 Respiratory Rate 16 Blood Pressure 149/69 H Pulse Oximetry 94 Oxygen Delivery <DEIDRE Dumont - Last Filed: 03/31/24 16:41> Exam 2 Narrative: Normal weight 69 y/o Male. Resting comfortably in bed. No pain at rest. Mild swelling. No Edema. No ecchymosis. No erythema. No hematoma. Range of motion limited due to pain. Leg shortened and externally rotated. Calf nontender. Thigh nontender. No varicosities. Distal pulses palpable. <DEIDRE Dumont - Last Filed: 03/31/24 16:41> Results Labs Result Diagrams: 03/31/24 06:27 03/31/24 06:27 <DEIDRE Dumont - Last Filed: 03/31/24 16:41> Labs: Abnormal lab results 03/30/24 03/30/24 03/30/24 Range/Units 19:13 21:29 21:31 Hct (42.0-52.0) % Immature Gran % (Auto) (0-0.5) % Neut % (Auto) (45.5-73.1) % Lymph % (Auto) (18.3-44.2) % Custer # (Auto) (0.1-0.6) K/mm3 Abs Immat Gran (auto) (0.00-0.031) K/mm3 Absolute Neuts (auto) (1.3-6.7) K/mm3 Sodium 130 L (137-145) mmol/L Chloride 97 L (98-107) mmol/L BUN 24 H (9-20) mg/dL Creatinine 0.55 L (0.7-1.3) mg/dL Glucose 272 H (65-110) mg/dL POC Capillary Glucose 330 H (65-105) mg/dl Total Bilirubin (0.2-1.3) mg/dL Total Creatine Kinase (55-170) U/L Total Protein (6.3-8.2) g/dL Beta-Hydroxybutyrate/Acetoacetate 2.37 H (0.02-0.27) mmol/L TSH (Reflex) (0.465-4.68) uIU/mL Total T3 (0.97-1.69) NG/ML 03/31/24 03/31/24 03/31/24 Range/Units 06:27 07:38 07:58 Hct 40.7 L (42.0-52.0) % Immature Gran % (Auto) 0.9 H (0-0.5) % Neut % (Auto) 78.3 H (45.5-73.1) % Lymph % (Auto) 11.5 L (18.3-44.2) % Custer # (Auto) 0.7 H (0.1-0.6) K/mm3 Abs Immat Gran (auto) 0.08 H (0.00-0.031) K/mm3 Absolute Neuts (auto) 7.0 H (1.3-6.7) K/mm3 Sodium 132 L (137-145) mmol/L Chloride (98-107) mmol/L BUN 21 H (9-20) mg/dL Creatinine 0.54 L (0.7-1.3) mg/dL Glucose 244 H (65-110) mg/dL POC Capillary Glucose 413 H 250 H (65-105) mg/dl Total Bilirubin 1.8 H (0.2-1.3) mg/dL Total Creatine Kinase 247 H (55-170) U/L Total Protein 6.0 L (6.3-8.2) g/dL Beta-Hydroxybutyrate/Acetoacetate (0.02-0.27) mmol/L TSH (Reflex) 6.670 H (0.465-4.68) uIU/mL Total T3 0.95 L (0.97-1.69) NG/ML 03/31/24 03/31/24 Range/Units 11:17 11:38 Hct (42.0-52.0) % Immature Gran % (Auto) (0-0.5) % Neut % (Auto) (45.5-73.1) % Lymph % (Auto) (18.3-44.2) % Custer # (Auto) (0.1-0.6) K/mm3 Abs Immat Gran (auto) (0.00-0.031) K/mm3 Absolute Neuts (auto) (1.3-6.7) K/mm3 Sodium (137-145) mmol/L Chloride (98-107) mmol/L BUN (9-20) mg/dL Creatinine (0.7-1.3) mg/dL Glucose (65-110) mg/dL POC Capillary Glucose 313 H 225 H (65-105) mg/dl Total Bilirubin (0.2-1.3) mg/dL Total Creatine Kinase (55-170) U/L Total Protein (6.3-8.2) g/dL Beta-Hydroxybutyrate/Acetoacetate (0.02-0.27) mmol/L TSH (Reflex) (0.465-4.68) uIU/mL Total T3 (0.97-1.69) NG/ML H & H 03/30/24 03/31/24 Range/Units 11:52 06:27 Hgb 15.2 14.2 (14.0-18.0) g/dL Hct 42.8 40.7 L (42.0-52.0) % Coagulation 03/30/24 Range/Units 11:52 INR 1.1 All other labs normal. <DEIDRE Dumont - Last Filed: 03/31/24 16:41> Quality VTE Prophylaxis VTE prophylaxis: mechanical ordered <DEIDRE Dumont - Last Filed: 03/31/24 16:41>
[2024-03-31 16:30] LABS: Glucose Point of Care 229 mg/dl (65-105)
--- NOTE | 2024-03-31 16:50 | P.PNIM_ITS ---
Progress Note: A&P Assessment and Plan (1) Closed subcapital fracture of right femur: Code(s): S72.011A - Unspecified intracapsular fracture of right femur, initial encounter for closed fracture Status: Acute Assessment and Plan: 03/31/24: * Ortho managing. OR tomorrow * PRN pain meds * PRN anti-emetics (2) Syncope: Qualifiers: Encounter type: sequela Code(s): R55 - Syncope and collapse Status: Acute Assessment and Plan: 03/31/24: * Carotid dopplers showing less than 50% stenosis in both LETICIA and LICA. * ECHO: Pending * Telemetry continued. * Bedrest * Fall precautions (3) Insulin dependent diabetes mellitus: Status: Acute Assessment and Plan: 03/31/24: * continue current glycemic management. * Diabetic diet and NPO as per surgery. (4) Hypertension: Code(s): I10 - Essential (primary) hypertension Status: Chronic Assessment and Plan: 03/31/24: * Stable BP. * Continue home medication regimen * Monitor (5) Hypothyroidism: Code(s): E03.9 - Hypothyroidism, unspecified Status: Chronic Assessment and Plan: 03/31/24: * Continue home medication regimen (6) Hyperlipidemia: Code(s): E78.5 - Hyperlipidemia, unspecified Status: Acute Assessment and Plan: 03/31/24: * Continue home medication regimen Plan OR on 04/01/24. Time Spent With Patient Time with patient: 15 - 25 minutes Subjective Date/time seen: 03/31/24 1200 Interval history: This pt was examined at the bedside today awaiting surgical consult from Dr. Johns. He fell and sustained a right subcapital femoral neck fracture. Plan is for him to have surgical repair tomorrow. Pt is without any current complaint other than pain in the right hip. He has no CP or dyspnea. Review of Systems Review of Systems: All systems reviewed & are unremarkable except as noted in HPI and below Exam Narrative: General: Nontoxic-appearing gentleman supine in bed in no acute distress. Weight: 90.4 kg. BMI: 26.3. HEENT: Small abrasion on the bridge of the right side of the nose. PERRL, EOMI. Sclera anicteric. Tacky mucous membranes. Neck: Supple. No midline vertebral tenderness. Respiratory: Lungs are clear to auscultation bilaterally. Cardiovascular: Regular rate and rhythm with S1-S2. Gastrointestinal: Abdomen is soft, nontender, and nondistended with positive bowel sounds. Skin: Warm and dry. Scattered excoriations on the chest. Small abrasion on the elbow. Extremities: No cyanosis, clubbing, or edema. Radial and pedal pulses intact. Musculoskeletal: Right lower extremity shortened and externally rotated. Mild swelling about the hip. Neurological: Alert. Cranial nerves 2-12 are grossly intact. No gross focal deficits to casual conversation. Psychiatric: Pleasant and cooperative with normal mood and affect. Objective Data Vital Signs Vital Signs: Vital Signs - 24 hr 03/30/24 17:01 03/30/24 17:46 03/30/24 18:01 Temperature Pulse Rate 92 89 96 Respiratory Rate 20 18 18 Blood Pressure 115/74 124/68 111/67 Pulse Oximetry 96 92 95 Oxygen Delivery 03/30/24 18:16 03/30/24 20:00 03/30/24 20:25 Temperature 97.8 F Pulse Rate 92 93 Respiratory Rate 19 14 Blood Pressure 120/69 130/70 Pulse Oximetry 97 95 Oxygen Delivery Room Air 03/31/24 00:00 03/31/24 04:00 03/31/24 04:42 Temperature 98.3 F Pulse Rate 78 90 88 Respiratory Rate 14 Blood Pressure 139/75 Pulse Oximetry 94 Oxygen Delivery 03/31/24 07:26 03/31/24 08:00 03/31/24 08:00 Temperature Pulse Rate 83 83 Respiratory Rate Blood Pressure Pulse Oximetry Oxygen Delivery Room Air 03/31/24 14:00 Temperature 98.7 F Pulse Rate 86 Respiratory Rate 16 Blood Pressure 149/69 H Pulse Oximetry 94 Oxygen Delivery Intake/Output Intake/Output: Intake & Output 03/28/24 03/29/24 03/30/24 03/31/24 23:59 23:59 23:59 23:59 Intake Total 1000 Output Total 750 Balance 1000 -750 Meds/Results Medications: Active Medications Generic Name Dose Route Start Last Admin Trade Name Freq PRN Reason Stop Dose Admin Acetaminophen 650 mg 03/30/24 14:27 Acetaminophen 325 Mg Tablet PO Q4H PRN Mild Pain (1-3) or Fever Dextrose 12.5 gm 03/30/24 14:36 Dextrose 50% 25 Gm/50 Ml Syringe IV PUSH PRN PRN Hypoglycemia Protocol Ergocalciferol units 03/31/24 09:00 Ergocalciferol 50,000 Units Capsule PO WEEKLY [facility] Glucagon 1 mg 03/30/24 14:36 Glucagon For Inj 1 Mg Vial IM PRN PRN Hypoglycemia Protocol Glucose 15 gm 03/30/24 14:36 Glucose Oral Gel 15 Gm Of Glucse In 37.5 Gm Tube PO PRN PRN Hypoglycemia Protocol Hydromorphone HCl 0.5 mg 03/30/24 14:27 Hydromorphone Hcl Inj (*Crx) 1 Mg/Ml Syr IV PUSH Q4H PRN Pain Rated 7-10 Dextrose 1,000 mls @ 100 mls/hr 03/30/24 14:36 Dextrose 5% 1,000 Ml IVPB PRN PRN Hypoglycemia Protocol Tranexamic Acid/Sodium Chloride 1,000 mg in 100 mls @ 200 mls/hr 04/01/24 12:00 Tranexamic Acid 1,000mg/[id number] IVPB 04/01/24 12:29 ONCE ONE Cefazolin Sodium 2 gm in 50 mls @ 100 mls/hr 04/01/24 12:00 Ancef 2 Gm/D5w 50 Ml IVPB 04/01/24 12:29 ONCE ONE Insulin Aspart 3 - 6 units 03/30/24 17:00 03/31/24 12:12 Insulin Aspart (*Bkc) 100 Units/Ml SUB-Q Not Given TIDWM [facility] Protocol Insulin Aspart 1 - 3 units 03/30/24 21:00 03/30/24 21:12 Insulin Aspart (*Bkc) 100 Units/Ml SUB-Q 2 units HS [facility] Administration Protocol Levothyroxine Sodium 200 mcg 03/31/24 07:45 03/31/24 08:00 Levothyroxine Sodium 100 Mcg Tablet PO Not Given DAILY@0630 [facility] Lisinopril 20 mg 03/31/24 09:00 Lisinopril 20 Mg Tablet PO DAILY [facility] Miscellaneous Information 1 each 03/31/24 00:01 Ergocalciferol Weekly. What Day Due? XX 04/30/24 00:00 CLARIFY [facility] Ondansetron HCl 4 mg 03/30/24 14:27 Ondansetron Inj 4 Mg/2 Ml Vial IV PUSH Q4H PRN Nausea Perflutren Lipid Microsphere 0 ml 03/30/24 14:36 Perflutren Lipid Microspheres 1.5 Ml Vial Diluted To 10 Ml Total Volume IV PUSH 04/02/24 14:36 ONCE PRN adequate visualization Protocol Rosuvastatin Calcium 5 mg 03/31/24 09:00 Rosuvastatin 5 Mg Tablet PO DAILY [facility] Radiology Results: ITS Impressions Hip/Pelvis X-Ray 03/30/24 12:17 IMPRESSION: Right subcapital femoral neck fracture Chest X-Ray 03/30/24 12:18 IMPRESSION: No active cardiopulmonary disease Knee X-Ray 03/30/24 13:05 IMPRESSION: No fracture or dislocation or joint effusion is detected Osteopenia Carotid Doppler Study 03/30/24 15:39 IMPRESSION: 1. Less than 50% stenosis in the right internal carotid artery. 2. Less than 50% stenosis in the left internal carotid artery. Labs Labs: Laboratory Results - last 24 hr 03/30/24 03/30/24 03/30/24 19:13 21:29 21:31 WBC RBC Hgb Hct MCV MCH MCHC RDW Plt Count MPV Immature Gran % (Auto) Neut % (Auto) Lymph % (Auto) [place] % (Auto) Eos % (Auto) Baso % (Auto) Lymph # (Auto) [place] # (Auto) Eos # (Auto) Baso # (Auto) Abs Immat Gran (auto) Absolute Neuts (auto) Absolute Nucleated RBC Nucleated RBC % Sodium 130 L Potassium 3.7 Chloride 97 L Carbon Dioxide 24 Anion Gap 9 BUN 24 H Creatinine 0.55 L Estim Creat Clear Calc 119 Estimated GFR > 60 Glucose 272 H POC Capillary Glucose 330 H Calcium 8.8 Magnesium Total Bilirubin AST ALT Alkaline Phosphatase Total Creatine Kinase Total Protein Albumin Beta-Hydroxybutyrate/Acetoacetate 2.37 H TSH (Reflex) Free T4 Total T3 03/31/24 03/31/24 03/31/24 06:27 07:38 07:58 WBC 9.0 RBC 4.68 Hgb 14.2 Hct 40.7 L MCV 87.0 MCH 30.3 MCHC 34.9 RDW 11.9 Plt Count 165 MPV 10.2 Immature Gran % (Auto) 0.9 H Neut % (Auto) 78.3 H Lymph % (Auto) 11.5 L [place] % (Auto) 8.1 Eos % (Auto) 0.6 Baso % (Auto) 0.6 Lymph # (Auto) 1.03 [place] # (Auto) 0.7 H Eos # (Auto) 0.1 Baso # (Auto) 0.1 Abs Immat Gran (auto) 0.08 H Absolute Neuts (auto) 7.0 H Absolute Nucleated RBC 0.000 Nucleated RBC % 0.0 Sodium 132 L Potassium 3.4 Chloride 98 Carbon Dioxide 28 Anion Gap 6 BUN 21 H Creatinine 0.54 L Estim Creat Clear Calc 121 Estimated GFR > 60 Glucose 244 H POC Capillary Glucose 413 H 250 H Calcium 8.4 Magnesium 2.1 Total Bilirubin 1.8 H AST 21 ALT 11 Alkaline Phosphatase 52 Total Creatine Kinase 247 H Total Protein 6.0 L Albumin 3.5 Beta-Hydroxybutyrate/Acetoacetate TSH (Reflex) 6.670 H Free T4 1.10 Total T3 0.95 L 03/31/24 03/31/24 03/31/24 11:17 11:38 16:28 WBC RBC Hgb Hct MCV MCH MCHC RDW Plt Count MPV Immature Gran % (Auto) Neut % (Auto) Lymph % (Auto) [place] % (Auto) Eos % (Auto) Baso % (Auto) Lymph # (Auto) [place] # (Auto) Eos # (Auto) Baso # (Auto) Abs Immat Gran (auto) Absolute Neuts (auto) Absolute Nucleated RBC Nucleated RBC % Sodium Potassium Chloride Carbon Dioxide Anion Gap BUN Creatinine Estim Creat Clear Calc Estimated GFR Glucose POC Capillary Glucose 313 H 225 H 229 H Calcium Magnesium Total Bilirubin AST ALT Alkaline Phosphatase Total Creatine Kinase Total Protein Albumin Beta-Hydroxybutyrate/Acetoacetate TSH (Reflex) Free T4 Total T3 Quality VTE Prophylaxis VTE prophylaxis: mechanical ordered
--- NOTE | 2024-03-31 17:45 | PC.NURSE ---
pt has taken what he states is aprox 2 bites of dinner, he states he does not want insulin at this time, he also states that he does not want his blood pressure to drop any more than what it is, I reviewed blood sugar result and VS with pt and his at bedside, he does not want medications at this time and states he will see how it goes
[2024-03-31] MEDS: HYDROmorphone HCL INJ (*CRX) 1 MG/ML SYR 0.5 MG IV PUSH (19:17)
[2024-03-31] MEDS: INSULIN ASPART (*BKC) 100 UNITS/ML SUB-Q (21:01)
[2024-03-31 22:46] LABS: Glucose Point of Care 231 mg/dl (65-105)
[2024-04-01] VITALS (9 sets, daily range): BP systolic 104–154; BP diastolic 60–91; PULSE 76–96; RESP 12–20; TEMP 36.1–36.8; O2SAT 93–100
--- NOTE | 2024-04-01 | ECHO_ITS ---
Patient Info Name: Luis Daniel Ford Age: 69 years : 1955 Gender: Male Ht: 73 in Wt: 199 lbs BSA: 2.17 m2 HR: 88 bpm BP: 146 / 73 mmHg Heart Rhythm: Sinus Rhythm Technical Quality: Poor Exam Date: 04/01/2024 12:53 PM Exam Location: Echo Lab Patient Status: Inpatient Admit Date: 03/30/2024 Staff Ordering Physician: Jackie Diaz PA-C [employer] Equipment Operator: Celio cMclure RDCS Attending Provider: Dede Norton Referring Physician: Emily OLIVEROS; Exam Type: CA echo dop color flow w con Study Info Indications - SYNCOPE Complete two-dimensional, color flow and Doppler transthoracic echocardiogram is performed with contrast to opacify the left ventricle and to improve the deliniation of the left ventricle endocardial borders. Contrast/Agitated Saline Contrast/Ag. Saline: Definity Amount: 2.00 ml Existing IV Access: Yes Reason for Poor Study: poor echocardiographic windows Summary 1. Technically difficult study with limited views. 2. Left ventricular chamber dimension is normal. 3. Left ventricular systolic function is normal, estimated at 65-70%. 4. There is moderately increased left ventricular wall thickness. 5. The left ventricular diastolic function is grade I diastolic dysfunction. 6. Right ventricular chamber dimension is moderately enlarged. 7. Right ventricular systolic function is normal. 8. There is moderate anterior pericardial effusion. No echocardiographic evidence of tamponade. 9. No significant valvular disease noted on this study. Left Ventricle Left ventricular chamber dimension is normal. Left ventricular systolic function is normal, estimated at 65-70%. There is moderately increased left ventricular wall thickness. The left ventricular diastolic function is grade I diastolic dysfunction. Right Ventricle Right ventricular chamber dimension is moderately enlarged. Right ventricular systolic function is normal. Left Atria Left atrial chamber dimension is normal. Right Atria Right atrial chamber dimension is normal. Atrial Septum Intact interatrial septum visualized by color flow imaging. Aortic Valve The aortic valve is not well visualized. There is no aortic valve stenosis. There is no aortic valve regurgitation. Pulmonic Valve The pulmonic valve is not well visualized. There is trace pulmonic regurgitation. Mitral Valve There is trace mitral valve regurgitation. Tricuspid Valve There is trace tricuspid valve regurgitation. Pericardium/Pleural There is moderate anterior pericardial effusion. No echocardiographic evidence of tamponade. Inferior Vena Cava Inferior vena cava is not well visualized. Aorta The aortic root size at the sinus of Valsalva is normal. Left Ventricular Outflow Tract Name Value Normal LVOT 2D LVOT Diameter 2.13 cm LVOT Doppler LVOT Peak Gradient 3 mmHg LVOT Mean Gradient 2 mmHg LVOT VTI 20.29 cm LVOT VTI/AV VTI Ratio 0.86 LVOT Stroke Volume 72.40 ml LVOT CO 3.65 l/min LVOT CI 1.68 L/min/m2 Pulmonic Valve Name Value Normal RVOT Doppler RVOT Peak Gradient 4 mmHg PV Doppler PV Peak Gradient 4 mmHg PV Regurgitation Doppler DC Peak End Diastolic Velocity 89.41 cm/s Mitral Valve Name Value Normal MV Doppler MV Decel [place] 206.67 cm/s2 MV PHT 0 s MV Area (PHT) 3.92 cm2 4.00-5.00 MV Diastolic Function MV E Peak Velocity 40.01 cm/s MV A Peak Velocity 75.09 cm/s MV E/A 0.53 MV Decel Time 0 s MV Annular TDI MV E/e' (Septal) 10.07 <=8.00 MV E/e' (Lateral) 5.42 <=8.00 MV E/e' (Average) 7.75 Aorta Name Value Normal Ascending Aorta Ao Root Diameter (MM) 3.11 cm Ao Root Diam Index (MM) 1.44 cm/m2 Aortic Valve Name Value Normal AV Doppler AV Peak Velocity 149.54 cm/s AV Peak Gradient 5 mmHg AV Mean Gradient 3 mmHg AV VTI 23.61 cm AV Area (Cont Eq VTI) 3.07 cm2 >=3.00 AV Area (Cont Eq Mathew) 2.45 cm2 AV Regurgitation 2D LVOT Area 3.57 cm2 Ventricles Name Value Normal LV Dimensions 2D/MM IVS Diastolic Thickness (2D) 1.50 cm 0.60-1.00 LVID Diastole (2D) 3.09 cm 4.20-5.80 LVIW Diastolic Thickness (2D) 1.63 cm 0.60-1.00 LVID Systole (2D) 1.93 cm 2.50-4.00 LVOT Diameter 2.13 cm LV Mass (2D Cubed) 176.46 g 88.00-224.00 LV Mass Index (2D Cubed) 0.01 g/cm2 0.00-0.01 Relative Wall Thickness (2D) 1.05 LV Fractional Shortening/Ejection Fraction 2D/MM LV Fractional Shortening (2D) 40 % 25-43 LV EF (2D Teicholz) 71 % 52-72 LV Diastolic Volume (4C MOD) 131.67 ml LV EF (4C MOD) 78 % LV Diastolic Volume (2C MOD) 70.12 ml LV EF (2C MOD) 67 % LV Diastolic Volume (BP MOD) 103.09 ml 62.00-150.00 LV Diastolic Volume Index (BP MOD) 0.05 l/m2 0.03-0.07 LV Systolic Volume (BP MOD) 27.55 ml 21.00-61.00 LV Systolic Volume Index (BP MOD) 0.01 l/m2 0.01-0.03 LV EF (BP MOD) 73 % 52-72 LV Diastolic Length (4C) 8.47 cm LV Systolic Length (4C) 6.11 cm LV Stroke Volume (4C MOD) 102.98 ml Atria Name Value Normal LA Dimensions LA Dimension (MM) 3.92 cm 3.00-4.10 LA Volume (4C A-L) 57.30 ml LA Volume (BP A-L) 51.36 ml RA Dimensions RA Area (4C) 13.32 cm2 <=18.00 Report Signatures
[2024-04-01] MEDS: LEVOTHYROXINE SODIUM 100 MCG TABLET 200 MCG PO (05:41)
[2024-04-01 07:37] LABS: Basophils Absolute Auto 0.1 K/mm3 (0.0-0.1); Basophils Percent Auto 0.8 % (0.2-1.2); Eosinophils Absolute Auto 0.1 K/mm3 (0-0.3); Eosinophils Percent Auto 1.7 % (0-4.4); Hematocrit 40.4 % (42.0-52.0); Hemoglobin 14.4 g/dL (14.0-18.0); Immature Granulocyte Absolute 0.09 K/mm3 (0.00-0.031); Immature Granulocyte Percent A 1.1 % (0-0.5); Lymphocytes Absolute Auto 1.43 K/mm3 (0.9-3.2); Lymphocytes Percent Auto 16.9 % (18.3-44.2); Mean Corpuscular HGB Conc 35.6 g/dl (32-36); Mean Corpuscular Hemoglobin 30.6 pg (26-34); Mean Platelet Volume 9.9 fl (7.4-10.4); Monocytes Absolute Auto 0.8 K/mm3 (0.1-0.6); Monocytes Percent Auto 9.3 % (2.6-8.5); Neutrophils Percent Auto 70.2 % (45.5-73.1); Platelet Count Result 172 k/mm3 (150-375); Red Cell Distribution Width 11.8 % (11.5-14.5); White Blood Count 8.5 K/mm3 (4.5-10.0)
[2024-04-01 07:45] LABS: Glucose Point of Care 192 mg/dl (65-105)
[2024-04-01 07:50] LABS: Alanine Aminotransferase 11 U/L (6-50); Albumin Level 3.4 g/dL (3.5-5.1); Alkaline Phosphatase 54 U/L (38-126); Anion Gap 8 mmol/L (4-12); Aspartate Amino Transferase 17 U/L (17-59); Bilirubin,Total 1.5 mg/dL (0.2-1.3); Blood Urea Nitrogen 15 mg/dL (9-20); Calcium 8.4 mg/dL (8.4-10.2); Carbon Dioxide 29 mmol/L (22-30); Chloride 94 mmol/L (98-107); Estimated CRCL calculation 121 ml/min; Estimated Glomerular Filt Rate > 60; Glucose 189 mg/dL (65-110); Potassium 3.1 mmol/L (3.4-5.0); Sodium 131 mmol/L (137-145)
--- NOTE | 2024-04-01 09:24 | P.PNIM_ITS ---
Progress Note: A&P Assessment and Plan (1) Closed subcapital fracture of right femur: Code(s): S72.011A - Unspecified intracapsular fracture of right femur, initial encounter for closed fracture Status: Inactive Assessment and Plan: * Ortho managing. * plan for OR today after potassium replaced * PRN pain meds * PRN anti-emetics * Robaxin added (2) Syncope: Qualifiers: Encounter type: sequela Code(s): R55 - Syncope and collapse Status: Acute Assessment and Plan: * Carotid dopplers showing less than 50% stenosis in both LETICIA and LICA. * ECHO: 65-70% * Telemetry continued. * Bedrest * Fall precautions (3) Insulin dependent diabetes mellitus: Status: Acute Assessment and Plan: * continue current glycemic management. * Diabetic diet and NPO as per surgery. (4) Hypertension: Code(s): I10 - Essential (primary) hypertension Status: Chronic Assessment and Plan: * Stable BP. * Continue home medication regimen * Monitor (5) Hypothyroidism: Code(s): E03.9 - Hypothyroidism, unspecified Status: Chronic Assessment and Plan: * Continue home medication regimen (6) Hyperlipidemia: Code(s): E78.5 - Hyperlipidemia, unspecified Status: Acute Assessment and Plan: * Continue home medication regimen (7) Total bilirubin, elevated: Code(s): R17 - Unspecified jaundice Status: Acute Assessment and Plan: patient is not jaundiced, patient denies nausea, vomiting, abdominal pain repeat CMP tomorrow Plan OR on 04/01/24. Time Spent With Patient Time with patient: Greater than 35 minutes Subjective Date/time seen: 04/01/24 09:24 Interval history: 69-year-old male with insulin-dependent diabetes, diabetic neuropathy, hypertension, hyperlipidemia, and hypothyroidism who presented to the emergency department via EMS from home for evaluation of right hip pain after a fall with Closed subcapital fracture of femur hypokalemic at 3.1, hyperglycemic at 192, total bili 1.5, liver enzymes normal, patient does not complain of belly pain or nausea or vomiting, however otherwise states that he is unable eat and severely nauseated Review of Systems Review of Systems: 12 systems were reviewed and are negativ e except for as per HPI. All systems reviewed & are unremarkable except as noted in HPI and below Exam Narrative: General: Nontoxic-appearing gentleman supine in bed in no acute distress. Weight: 90.4 kg. BMI: 26.3. HEENT: Small abrasion on the bridge of the right side of the nose. PERRL, EOMI. Sclera anicteric. Tacky mucous membranes. Neck: Supple. No midline vertebral tenderness. Respiratory: Lungs are clear to auscultation bilaterally. Cardiovascular: Regular rate and rhythm with S1-S2. Gastrointestinal: Abdomen is soft, nontender, and nondistended with positive bowel sounds. Skin: Warm and dry. Scattered excoriations on the chest. Small abrasion on the elbow. Extremities: No cyanosis, clubbing, or edema. Radial and pedal pulses intact. Musculoskeletal: Right lower extremity shortened and externally rotated. Mild swelling about the hip. Neurological: Alert. Cranial nerves 2-12 are grossly intact. No gross focal deficits to casual conversation. Psychiatric: Pleasant and cooperative with normal mood and affect. Objective Data Vital Signs Vital Signs: Vital Signs - 24 hr 03/31/24 14:00 03/31/24 19:57 03/31/24 20:00 Temperature 98.7 F 98.9 F Pulse Rate 86 81 Respiratory Rate 16 12 Blood Pressure 149/69 H 149/56 H Pulse Oximetry 94 94 Oxygen Delivery Room Air 04/01/24 03:55 Temperature 98.1 F Pulse Rate 88 Respiratory Rate 14 Blood Pressure 146/73 H Pulse Oximetry 93 Oxygen Delivery Intake/Output Intake/Output: Intake & Output 03/29/24 03/30/24 03/31/24 04/01/24 23:59 23:59 23:59 23:59 Intake Total 1000 620 0 Output Total 1050 Balance 1000 -430 0 Meds/Results Medications: Active Medications Generic Name Dose Route Start Last Admin Trade Name Freq PRN Reason Stop Dose Admin Acetaminophen 650 mg 03/30/24 14:27 Acetaminophen 325 Mg Tablet PO Q4H PRN Mild Pain (1-3) or Fever Dextrose 12.5 gm 03/30/24 14:36 Dextrose 50% 25 Gm/50 Ml Syringe IV PUSH PRN PRN Hypoglycemia Protocol Ergocalciferol units 03/31/24 09:00 Ergocalciferol 50,000 Units Capsule PO WEEKLY [facility] Glucagon 1 mg 03/30/24 14:36 Glucagon For Inj 1 Mg Vial IM PRN PRN Hypoglycemia Protocol Glucose 15 gm 03/30/24 14:36 Glucose Oral Gel 15 Gm Of Glucse In 37.5 Gm Tube PO PRN PRN Hypoglycemia Protocol Hydromorphone HCl 0.5 mg 03/30/24 14:27 03/31/24 19:17 Hydromorphone Hcl Inj (*Crx) 1 Mg/Ml Syr IV PUSH 0.5 mg Q4H PRN Administration Pain Rated 7-10 Dextrose 1,000 mls @ 100 mls/hr 03/30/24 14:36 Dextrose 5% 1,000 Ml IVPB PRN PRN Hypoglycemia Protocol Tranexamic Acid/Sodium Chloride 1,000 mg in 100 mls @ 200 mls/hr 04/01/24 12:00 Tranexamic Acid 1,000mg/[id number] IVPB 04/01/24 12:29 ONCE ONE Cefazolin Sodium 2 gm in 50 mls @ 100 mls/hr 04/01/24 12:00 Ancef 2 Gm/D5w 50 Ml IVPB 04/01/24 12:29 ONCE ONE Insulin Aspart 3 - 6 units 03/30/24 17:00 03/31/24 17:44 Insulin Aspart (*Bkc) 100 Units/Ml SUB-Q Not Given TIDWM [facility] Protocol Insulin Aspart 1 - 3 units 03/30/24 21:00 03/31/24 21:01 Insulin Aspart (*Bkc) 100 Units/Ml SUB-Q 1 units HS [facility] Administration Protocol Levothyroxine Sodium 200 mcg 03/31/24 07:45 04/01/24 05:41 Levothyroxine Sodium 100 Mcg Tablet PO 200 mcg DAILY@0630 [facility] Administration Lisinopril 20 mg 03/31/24 09:00 03/31/24 17:44 Lisinopril 20 Mg Tablet PO Not Given DAILY [facility] Miscellaneous Information 1 each 03/31/24 00:01 Ergocalciferol Weekly. What Day Due? XX 04/30/24 00:00 CLARIFY [facility] Ondansetron HCl 4 mg 03/30/24 14:27 Ondansetron Inj 4 Mg/2 Ml Vial IV PUSH Q4H PRN Nausea Perflutren Lipid Microsphere 0 ml 03/30/24 14:36 Perflutren Lipid Microspheres 1.5 Ml Vial Diluted To 10 Ml Total Volume IV PUSH 04/02/24 14:36 ONCE PRN adequate visualization Protocol Rosuvastatin Calcium 5 mg 03/31/24 09:00 03/31/24 17:44 Rosuvastatin 5 Mg Tablet PO Not Given DAILY [facility] Radiology Results: ITS Impressions Hip/Pelvis X-Ray 03/30/24 12:17 IMPRESSION: Right subcapital femoral neck fracture Chest X-Ray 03/30/24 12:18 IMPRESSION: No active cardiopulmonary disease Knee X-Ray 03/30/24 13:05 IMPRESSION: No fracture or dislocation or joint effusion is detected Osteopenia Carotid Doppler Study 03/30/24 15:39 IMPRESSION: 1. Less than 50% stenosis in the right internal carotid artery. 2. Less than 50% stenosis in the left internal carotid artery. Labs Labs: Laboratory Results - last 24 hr 03/31/24 03/31/24 03/31/24 06:27 11:17 11:38 WBC RBC Hgb Hct MCV MCH MCHC RDW Plt Count MPV Immature Gran % (Auto) Neut % (Auto) Lymph % (Auto) [place] % (Auto) Eos % (Auto) Baso % (Auto) Lymph # (Auto) [place] # (Auto) Eos # (Auto) Baso # (Auto) Abs Immat Gran (auto) Absolute Neuts (auto) Absolute Nucleated RBC Nucleated RBC % Sodium Potassium Chloride Carbon Dioxide Anion Gap BUN Creatinine Estim Creat Clear Calc Estimated GFR Glucose POC Capillary Glucose 313 H 225 H Calcium Total Bilirubin AST ALT Alkaline Phosphatase Total Protein Albumin Total T3 0.95 L Blood Type Antibody Screen 03/31/24 03/31/24 03/31/24 16:28 17:04 20:41 WBC RBC Hgb Hct MCV MCH MCHC RDW Plt Count MPV Immature Gran % (Auto) Neut % (Auto) Lymph % (Auto) [place] % (Auto) Eos % (Auto) Baso % (Auto) Lymph # (Auto) [place] # (Auto) Eos # (Auto) Baso # (Auto) Abs Immat Gran (auto) Absolute Neuts (auto) Absolute Nucleated RBC Nucleated RBC % Sodium Potassium Chloride Carbon Dioxide Anion Gap BUN Creatinine Estim Creat Clear Calc Estimated GFR Glucose POC Capillary Glucose 229 H 231 H Calcium Total Bilirubin AST ALT Alkaline Phosphatase Total Protein Albumin Total T3 Blood Type A Positive Antibody Screen Negative 04/01/24 04/01/24 07:07 07:43 WBC 8.5 RBC 4.70 Hgb 14.4 Hct 40.4 L MCV 86.0 MCH 30.6 MCHC 35.6 RDW 11.8 Plt Count 172 MPV 9.9 Immature Gran % (Auto) 1.1 H Neut % (Auto) 70.2 Lymph % (Auto) 16.9 L [place] % (Auto) 9.3 H Eos % (Auto) 1.7 Baso % (Auto) 0.8 Lymph # (Auto) 1.43 [place] # (Auto) 0.8 H Eos # (Auto) 0.1 Baso # (Auto) 0.1 Abs Immat Gran (auto) 0.09 H Absolute Neuts (auto) 6.0 Absolute Nucleated RBC 0.000 Nucleated RBC % 0.0 Sodium 131 L Potassium 3.1 L Chloride 94 L Carbon Dioxide 29 Anion Gap 8 BUN 15 D Creatinine 0.54 L Estim Creat Clear Calc 121 Estimated GFR > 60 Glucose 189 H POC Capillary Glucose 192 H Calcium 8.4 Total Bilirubin 1.5 H AST 17 ALT 11 Alkaline Phosphatase 54 Total Protein 6.0 L Albumin 3.4 L Total T3 Blood Type Antibody Screen Quality VTE Prophylaxis VTE prophylaxis: mechanical ordered Hospitalist MIPS Advance Care Plan I have confirmed that the patient's Advanced Care Plan is present, code status is documented, or surrogate decision maker is listed in patient medical record.: Yes
[2024-04-01] MEDS: POTASSIUM CHLORIDE INJ 40 MEQ in SODIUM CHLORIDE 0.9% IV 500 ML 130 MEQ IVPB (09:51)
[2024-04-01 11:22] LABS: Glucose Point of Care 181 mg/dl (65-105)
--- NOTE | 2024-04-01 12:23 | WPDHPUPDATE1 ---
History and Physical Update Update Date/Time: 04/01/24 12:23 History and Physical has been reviewed, including an updated exam of the patient. There are NO changes in the patient's condition. Risks, benefits, and alternatives have been discussed and questions answered. Patient agrees to proceed with procedure.
[2024-04-01] MEDS: PERFLUTREN LIPID MICROSPHERES 1.5 ML VIAL DILUTED TO 10 ML TOTAL VOLUME IV PUSH (13:30)
--- NOTE | 2024-04-01 13:52 | IVDEFINITY ---
Prior to administration of IV Definity the patient was educated on the risks and benefits of the imaging enhancing agent including potential adverse side effects. The patient verbalized understanding. Allergies were verified. No exclusion criteria were identified and at least one of the following inclusion criteria were met: 1) physician request, 2) patient technically difficult to image (per the [place] [employer] guidelines of two or more segments not discernable within the apical view), or 3) questionable left ventricular function. ?
--- NOTE | 2024-04-01 16:56 | WPDANESEPPF ---
Anes - Initial Pre Proc Eval Procedure: Operation Date: 04/01/24 17:00 Proposed Procedures p Right Bipolar - Ugo Johns MD Date/Time: 04/01/24 16:56 Surgeon: ANGELINA Maya Pre Op Diagnosis: R subcapital femur fx, syncope Patient Data Age: 69 Gender: M Height: 1.85 m Weight: 91.3 kg Last Vital Signs Temp 36.7 C 04/01/24 03:55 Pulse 88 04/01/24 03:55 Resp 14 04/01/24 03:55 BP 146/73 H 04/01/24 03:55 Pulse Ox 93 04/01/24 03:55 O2 Del Method Room Air 04/01/24 09:50 Allergies Allergy/AdvReac Type Severity Reaction Status Date / Time No Known Allergies Allergy Verified 03/30/24 12:14 Home Medications ?Medication ?Instructions ?Recorded ?Confirmed ?Type B12 BYMOUTH 02/15/22 02/15/22 History cholecalciferol (vitamin D3) 1,250 1,250 mcg PO WEEKLY 02/15/22 03/30/24 History mcg (50,000 unit) capsule insulin NPH isoph U-100 human 100 88 unit subcut BID 02/15/22 03/30/24 History unit/mL (3 mL) subcutaneous pen (Humulin N NPH U-100 Insulin KwikPen) insulin regular hum U-500 conc 500 See Rx Instructions subcut 02/15/22 03/30/24 Rx unit/mL(3 mL) subcut pen (Humulin BIDWMEAL 90 days #30 mL R U-500 (Conc) Insulin Kwikpen) levothyroxine 200 mcg tablet 200 mcg PO DAILY 02/15/22 03/30/24 History (Synthroid) lisinopril 20 mg tablet 20 mg PO DAILY 02/15/22 03/30/24 History rosuvastatin 5 mg tablet 5 mg PO DAILY #90 tabs 02/15/22 03/30/24 Rx Laboratory Tests 03/31/24 03/31/24 04/01/24 17:04 20:41 07:07 WBC 8.5 K/mm3 (4.5-10.0) RBC 4.70 M/mm3 (4.6-6.20) Hgb 14.4 g/dL (14.0-18.0) Hct 40.4 L % (42.0-52.0) MCV 86.0 fl (80-100) MCH 30.6 pg (26-34) MCHC 35.6 g/dl (32-36) RDW 11.8 % (11.5-14.5) Plt Count 172 k/mm3 (150-375) MPV 9.9 fl (7.4-10.4) Immature Gran % (Auto) 1.1 H % (0-0.5) Neut % (Auto) 70.2 % (45.5-73.1) Lymph % (Auto) 16.9 L % (18.3-44.2) [place] % (Auto) 9.3 H % (2.6-8.5) Eos % (Auto) 1.7 % (0-4.4) Baso % (Auto) 0.8 % (0.2-1.2) Lymph # (Auto) 1.43 K/mm3 (0.9-3.2) [place] # (Auto) 0.8 H K/mm3 (0.1-0.6) Eos # (Auto) 0.1 K/mm3 (0-0.3) Baso # (Auto) 0.1 K/mm3 (0.0-0.1) Abs Immat Gran (auto) 0.09 H K/mm3 (0.00-0.031) Absolute Neuts (auto) 6.0 K/mm3 (1.3-6.7) Absolute Nucleated RBC 0.000 K/mm3 (0.0-0.012) Nucleated RBC % 0.0 % (0.0-0.2) Sodium 131 L mmol/L (137-145) Potassium 3.1 L mmol/L (3.4-5.0) Chloride 94 L mmol/L (98-107) Carbon Dioxide 29 mmol/L (22-30) Anion Gap 8 mmol/L (4-12) BUN 15 D mg/dL (9-20) Creatinine 0.54 L mg/dL (0.7-1.3) Estim Creat Clear Calc 121 ml/min Estimated GFR > 60 (59 - ) Glucose 189 H mg/dL (65-110) POC Capillary Glucose 231 H mg/dl (65-105) Calcium 8.4 mg/dL (8.4-10.2) Total Bilirubin 1.5 H mg/dL (0.2-1.3) AST 17 U/L (17-59) ALT 11 U/L (6-50) Alkaline Phosphatase 54 U/L (38-126) Total Protein 6.0 L g/dL (6.3-8.2) Albumin 3.4 L g/dL (3.5-5.1) Blood Type A Positive Antibody Screen Negative 04/01/24 04/01/24 07:43 11:13 WBC RBC Hgb Hct MCV MCH MCHC RDW Plt Count MPV Immature Gran % (Auto) Neut % (Auto) Lymph % (Auto) [place] % (Auto) Eos % (Auto) Baso % (Auto) Lymph # (Auto) [place] # (Auto) Eos # (Auto) Baso # (Auto) Abs Immat Gran (auto) Absolute Neuts (auto) Absolute Nucleated RBC Nucleated RBC % Sodium Potassium Chloride Carbon Dioxide Anion Gap BUN Creatinine Estim Creat Clear Calc Estimated GFR Glucose POC Capillary Glucose 192 H mg/dl 181 H mg/dl (65-105) (65-105) Calcium Total Bilirubin AST ALT Alkaline Phosphatase Total Protein Albumin Blood Type Antibody Screen Patient hx anesthesia problems: none Family hx anesthesia problems: none Results Review: All pre-operative results and documents have been reviewed as part of the pre-operative evaluation. [facility] Past Medical History Medical History Diabetic peripheral neuropathy Hypertension Hyperlipidemia Hypothyroidism Insulin dependent diabetes mellitus Surgical History Surgical History History of cataract extraction with lens replacement History of meniscectomy of right knee History of colonoscopy with polypectomy Social History Social History Social History: Surrogate medical decision maker: Iwona Ford, spouse ([phone]). Code status: Full code. Smoking status: Never smoker Second hand tobacco smoke exposure: Yes Alcohol intake: former Alcohol use details: 5-6 weekly beers Substance use: never Do You Feel Safe in your Home?: Yes Lack of Transportation: No Lack of Food: Sometimes True Current Housing: I Have Housing Concerned About Future Housing: No Difficulty Paying Gas/Electric Bills: No Difficulty Paying for Meds: No Currently Unemployed: Decline to Answer Education: Decline to Answer Difficulty w/ Childcare or Family Care: No Living arrangements: with family Additional living arrangements comments: Spiritual care concerns: No Anes - Eval Final PreProcedure Day of Procedure 04/01/24 16:56 Patient weight: overweight Heart: regular rate and rhythm Lungs: clear to auscultation Airway: Mallampati scale class II Neurological: alert and oriented Last oral intake: >/= 8 hours ASA classification: III Emergent: no Anesthetic plan: proceed Anesthesia type and monitoring: general LMA and standard monitoring Results Review: All pre-operative results and documents have been reviewed as part of the pre-operative evaluation. Informed Consent: The patient's anesthetic plan and its attendant risks and benefits were discussed with the patient/family/POA. Questions were solicited and answers provided to the satisfaction of the patient/family/POA.
[2024-04-01] MEDS: TRANEXAMIC ACID 1,000MG/ISO100 1,000 MG/100 ML BAG 200 MG IVPB (17:43)
[2024-04-01] MEDS: INSULIN HUMAN REGULAR (*BKC) 100 UNITS/ML 6 UNITS SUB-Q (17:44)
[2024-04-01] MEDS: LACTATED RINGERS 1,000 ML 30 ML IV CONT ×2 (17:45→19:37)
[2024-04-01] MEDS: ceFAZolin 2 GM/D5W 50 ML 2 GM/50 ML BAG IVPB (17:47)
[2024-04-01] MEDS: SODIUM CHLORIDE 0.9% IV 37.7 ML, MORPHINE SULFATE INJ (*CRX) 2 MG, ROPivacaine HCL 1% 2... INFILTRATE (18:23)
[2024-04-01] MEDS: fentaNYL CITRATE INJ (*CRX) 100 MCG/2 ML VIAL 25 MCG IV PUSH ×4 (19:32→20:00)
[2024-04-01] MEDS: diphenhydrAMINE HCl INJ 50 MG/ML VIAL 25 MG IV PUSH (19:34)
[2024-04-01 19:36] LABS: Glucose Point of Care 191 mg/dl (65-105)
[2024-04-01 19:36] LABS: Glucose Point of Care 210 mg/dl (65-105)
--- NOTE | 2024-04-01 19:42 | W.PM.PROC2 ---
Procedure Note - Detailed Date of Procedure 04/01/24 Pre-op Diagnosis Displaced right femoral neck fracture. Post-op Diagnosis Same Procedure Performed Bipolar hemiarthroplasty right hip. Surgeon Ugo Johns MD Anesthesia General Description of Procedure A general anesthetic was administered. The patient was carefully placed in the lateral decubitus position on the peg board positioner. An axillary roll was placed. The hip was prepped and draped in the usual sterile fashion. A minimally invasive optimized posterior approach to the hip was performed. An L shaped capsulotomy was created along the upper border of the piriformis. The short external rotators were tagged with number 2 high strength suture for later repair. The labrum was preserved. The femoral neck cut was performed. The femoral head was removed and sized. The acetabular floor was cleared of debris and loose tissue. The femur was sequentially broached. Trial was assessed for leg length and stability. The real component was impacted into position, trialed again, and the final head and bipolar component were assembled. The hip was reduced after copious irrigation. The short external rotators and capsule were repaired through drill holes in the posterior trochanter. The wound was closed in layers with 1 vicryl, 2,0, and 2-0 running barbed suture. Adhesive tapes were placed on the skin, followed by a sterile gauze dressing. The patient was extubated and brought to the recovery room. Implants Kathy Accolate 2 hip stem 127 degree, size 6, UH are bipolar component outer diameter size 53, inner metal ball size 28 +0mm Estimated Blood Loss 100 Urine Output 300 Drains No Pathology None sent Complications No immediate complications Condition Stable Disposition PACU [facility] Billing Surgery - Charge Forward: Surgery Billing
[2024-04-01] MEDS: oxyCODONE/ACETAMINOPHEN (*CRX) 10-325 MG TABLET 1 TAB PO (20:53)
[2024-04-01] MEDS: methocarbamoL 500 MG TABLET PO (20:53)
[2024-04-01 22:01] LABS: Glucose Point of Care 210 mg/dl (65-105)
[2024-04-01] MEDS: HYDROmorphone HCL INJ (*CRX) 1 MG/ML SYR IV PUSH (22:10)
[2024-04-02 00:06] VITALS: BP 125/80; PULSE 80; RESP 20; TEMP 36.8; O2SAT 94
[2024-04-02] MEDS: ceFAZolin 2 GM/D5W 50 ML 2 GM/50 ML BAG IVPB ×3 (00:53→15:45)
[2024-04-02 04:18] VITALS: BP 130/81; PULSE 81; RESP 20; TEMP 37; O2SAT 95
[2024-04-02 07:00] LABS: Basophils Absolute Auto 0.1 K/mm3 (0.0-0.1); Basophils Percent Auto 0.6 % (0.2-1.2); Eosinophils Percent Auto 0.3 % (0-4.4); Hematocrit 38.5 % (42.0-52.0); Hemoglobin 13.5 g/dL (14.0-18.0); Immature Granulocyte Absolute 0.12 K/mm3 (0.00-0.031); Lymphocytes Absolute Auto 1.29 K/mm3 (0.9-3.2); Lymphocytes Percent Auto 10.9 % (18.3-44.2); Mean Corpuscular HGB Conc 35.1 g/dl (32-36); Mean Corpuscular Hemoglobin 30.2 pg (26-34); Mean Corpuscular Volume 86.1 fl (80-100); Mean Platelet Volume 9.6 fl (7.4-10.4); Monocytes Absolute Auto 0.9 K/mm3 (0.1-0.6); Monocytes Percent Auto 7.7 % (2.6-8.5); Neutrophils Absolute Auto 9.4 K/mm3 (1.3-6.7); Neutrophils Percent Auto 79.5 % (45.5-73.1); Platelet Count Result 171 k/mm3 (150-375); Red Blood Count 4.47 M/mm3 (4.6-6.20); Red Cell Distribution Width 11.8 % (11.5-14.5); White Blood Count 11.8 K/mm3 (4.5-10.0)
[2024-04-02 07:24] LABS: Alanine Aminotransferase 11 U/L (6-50); Albumin Level 3.2 g/dL (3.5-5.1); Alkaline Phosphatase 48 U/L (38-126); Anion Gap 6 mmol/L (4-12); Aspartate Amino Transferase 22 U/L (17-59); Bilirubin,Total 1.1 mg/dL (0.2-1.3); Blood Urea Nitrogen 16 mg/dL (9-20); Carbon Dioxide 25 mmol/L (22-30); Chloride 97 mmol/L (98-107); Estimated CRCL calculation 110 ml/min; Estimated Glomerular Filt Rate > 60; Glucose 188 mg/dL (65-110); Potassium 3.6 mmol/L (3.4-5.0); Sodium 128 mmol/L (137-145)
[2024-04-02] MEDS: LEVOTHYROXINE SODIUM 100 MCG TABLET 200 MCG PO (07:25)
--- NOTE | 2024-04-02 07:51 | P.PNOP_ITS ---
Progress Note: A&P Assessment and Plan (1) Closed subcapital fracture of femur: Qualifiers: Encounter type: initial encounter Laterality: right Qualified Code(s): S72.011A - Unspecified intracapsular fracture of right femur, initial encounter for closed fracture Code(s): S72.019A - Unspecified intracapsular fracture of unspecified femur, initial encounter for closed fracture Status: Acute Assessment and Plan: Postop day 1: Bipolar hemiarthroplasty right hip. Patient tolerated procedure well. No complications. Pain manageable with pain medication. No numbness or tingling. We had a lengthy discussion regarding postoperative wound care, limitations, expectations, and exercises. Patient shows good understanding. Plan for PT/OT today. Will continue to follow. Discharge planning in progress. He will benefit from SNF/Rehab at discharge. May consider discharge home with home health PT/nursing. Subjective Subjective Date/Time Seen: 04/02/24 07:51 Interval history: Patient resting comfortably in bed. Notes pain is improved since before surgery. He is pleased with his progress. Plan to work with PT/OT today. NO numbenss or tingling. Review of Systems Review of Systems: All systems reviewed & are unremarkable except as noted in HPI and below Exam Narrative: Overweight 69 y/o Male. Resting comfortably in bed. Dressing dry and intact with no drainage. Moderate swelling. No edema. No ecchymosis. No erythema. No hematoma. Range of motion limited due to pain. Calf nontender. Thigh nontender. No varicosities. Distal pulses palpable. Wiggles toes. Objective Data Vital Signs Vital Signs: Vital Signs - 24 hr 04/01/24 09:50 04/01/24 16:57 04/01/24 17:26 Temperature 98.2 F 97 F L Pulse Rate 83 84 Respiratory Rate 20 Blood Pressure 140/85 154/91 H Pulse Oximetry 98 96 Oxygen Delivery Room Air Room Air Oxygen Flow Rate 04/01/24 19:15 04/01/24 19:30 04/01/24 19:45 Temperature 97.0 F L Pulse Rate 96 79 82 Respiratory Rate 16 16 18 Blood Pressure 142/70 H 137/64 110/61 Pulse Oximetry 98 95 95 Oxygen Delivery Simple Face Mask Room Air Room Air Oxygen Flow Rate 8 04/01/24 20:00 04/01/24 20:42 04/01/24 21:57 Temperature 97.7 F 98.2 F Pulse Rate 78 76 83 Respiratory Rate 12 20 20 Blood Pressure 104/65 118/60 140/85 Pulse Oximetry 96 100 98 Oxygen Delivery Room Air Oxygen Flow Rate 04/02/24 00:06 04/02/24 04:18 Temperature 98.3 F 98.6 F Pulse Rate 80 81 Respiratory Rate 20 20 Blood Pressure 125/80 130/81 Pulse Oximetry 94 95 Oxygen Delivery Oxygen Flow Rate Intake/Output Intake/Output: Intake & Output 03/30/24 03/31/24 04/01/24 04/02/24 23:59 23:59 23:59 23:59 Intake Total 1000 620 450 325 Output Total 1050 300 Balance 1000 -430 150 325 Meds/Results Medications: Active Medications Generic Name Dose Route Start Last Admin Trade Name Freq PRN Reason Stop Dose Admin Acetaminophen 500 mg 04/01/24 20:12 Acetaminophen 500 Mg Tablet PO Q6H PRN Pain Rated 1-3 Dextrose 12.5 gm 03/30/24 14:36 Dextrose 50% 25 Gm/50 Ml Syringe IV PUSH PRN PRN Hypoglycemia Protocol Enoxaparin Sodium 30 mg 04/02/24 09:00 Enoxaparin 30 Mg/0.3 Ml Syringe SUB-Q DAILY MICHAEL Glucagon 1 mg 03/30/24 14:36 Glucagon For Inj 1 Mg Vial IM PRN PRN Hypoglycemia Protocol Glucose 15 gm 03/30/24 14:36 Glucose Oral Gel 15 Gm Of Glucse In 37.5 Gm Tube PO PRN PRN Hypoglycemia Protocol Hydromorphone HCl 1 mg 04/01/24 20:12 04/01/24 22:10 Hydromorphone Hcl Inj (*Crx) 1 Mg/Ml Syr IV PUSH 1 mg Q2H PRN Administration Breakthrough Pain Rated 7-10 or NPO Hydromorphone HCl 0.5 mg 04/01/24 20:12 Hydromorphone Hcl Inj (*Crx) 1 Mg/Ml Syr IV PUSH Q2H PRN Breakthrough Pain Rated 4-6 or NPO Hydroxyzine Pamoate 50 mg 04/01/24 20:12 Hydroxyzine Pamoate 25 Mg Capsule PO Q4H PRN Itching Dextrose 1,000 mls @ 100 mls/hr 03/30/24 14:36 Dextrose 5% 1,000 Ml IVPB PRN PRN Hypoglycemia Protocol Lactated Ringer's 1,000 mls @ 30 mls/hr 04/01/24 17:00 04/01/24 19:37 Lr - Lactated Ringers Iv IV CONT Infused .Q24H MICHAEL Infusion Lactated Ringer's 1,000 mls @ 30 mls/hr 04/01/24 17:00 04/01/24 20:07 Lr - Lactated Ringers Iv IV CONT Infused .Q24H MICHAEL Infusion Sodium Chloride 1,000 mls @ 125 mls/hr 04/01/24 20:12 04/01/24 23:57 Normal Saline Iv IV CONT Not Given .Q8H MICHAEL Cefazolin Sodium 2 gm in 50 mls @ 100 mls/hr 04/02/24 00:00 04/02/24 00:53 Ancef 2 Gm/D5w 50 Ml IVPB 04/02/24 16:29 100 mls/hr Q8H MICHAEL Administration Insulin Aspart 3 - 6 units 03/30/24 17:00 04/01/24 17:56 Insulin Aspart (*Bkc) 100 Units/Ml SUB-Q Not Given TIDWM [facility] Protocol Insulin Aspart 1 - 3 units 03/30/24 21:00 04/02/24 01:37 Insulin Aspart (*Bkc) 100 Units/Ml SUB-Q Not Given HS [facility] Protocol Levothyroxine Sodium 200 mcg 03/31/24 07:45 04/02/24 07:25 Levothyroxine Sodium 100 Mcg Tablet PO 200 mcg DAILY@0630 MICHAEL Administration Lisinopril 20 mg 03/31/24 09:00 04/01/24 12:07 Lisinopril 20 Mg Tablet PO Not Given DAILY [facility] Methocarbamol 500 mg 04/01/24 17:00 04/01/24 20:53 Methocarbamol 500 Mg Tablet PO 500 mg QID MICHAEL Administration Naloxone HCl 0.1 mg 04/01/24 20:12 Naloxone Hcl 0.4 Mg/Ml Vial IV PUSH Q2M PRN Opiate Reversal Ondansetron HCl 4 mg 04/01/24 20:12 Ondansetron Inj 4 Mg/2 Ml Vial IV PUSH Q4H PRN Nausea And Vomiting Oxycodone/Acetaminophen 1 tablet 04/01/24 20:12 Oxycodone/Acetaminophen (*Crx) 5-325 Mg Tablet PO Q4H PRN Pain Rated 4-6 Oxycodone/Acetaminophen 1 tab 04/01/24 20:12 04/01/24 20:53 Oxycodone/Acetaminophen (*Crx) 10-325 Mg Tablet PO 1 tab Q6H PRN Administration Pain Rated 7-10 Polyethylene Glycol 17 gm 04/02/24 09:00 Polyethylene Glycol 3350 17 Gm Powd.Pack PO QAM [facility] Rosuvastatin Calcium 5 mg 03/31/24 09:00 04/01/24 12:07 Rosuvastatin 5 Mg Tablet PO Not Given DAILY MICHAEL Senna/Docusate Sodium 2 tab 04/02/24 09:00 Senna/Docusate Sodium Tablet PO BID [facility] Radiology Results: ITS Impressions Hip/Pelvis X-Ray 03/30/24 12:17 IMPRESSION: Right subcapital femoral neck fracture Chest X-Ray 03/30/24 12:18 IMPRESSION: No active cardiopulmonary disease Knee X-Ray 03/30/24 13:05 IMPRESSION: No fracture or dislocation or joint effusion is detected Osteopenia Carotid Doppler Study 03/30/24 15:39 IMPRESSION: 1. Less than 50% stenosis in the right internal carotid artery. 2. Less than 50% stenosis in the left internal carotid artery. Hip X-Ray 04/01/24 19:53 IMPRESSION: Expected perioperative appearance of a right total hip arthroplasty. Labs Labs: Laboratory Results - last 24 hr 04/01/24 04/01/24 04/01/24 11:13 17:08 19:34 WBC RBC Hgb Hct MCV MCH MCHC RDW Plt Count MPV Immature Gran % (Auto) Neut % (Auto) Lymph % (Auto) [place] % (Auto) Eos % (Auto) Baso % (Auto) Lymph # (Auto) [place] # (Auto) Eos # (Auto) Baso # (Auto) Abs Immat Gran (auto) Absolute Neuts (auto) Absolute Nucleated RBC Nucleated RBC % Sodium Potassium Chloride Carbon Dioxide Anion Gap BUN Creatinine Estim Creat Clear Calc Estimated GFR Glucose POC Capillary Glucose 181 H 210 H 191 H Calcium Total Bilirubin AST ALT Alkaline Phosphatase Total Protein Albumin 04/01/24 04/02/24 21:58 06:46 WBC 11.8 H RBC 4.47 L Hgb 13.5 L Hct 38.5 L MCV 86.1 MCH 30.2 MCHC 35.1 RDW 11.8 Plt Count 171 MPV 9.6 Immature Gran % (Auto) 1.0 H Neut % (Auto) 79.5 H Lymph % (Auto) 10.9 L [place] % (Auto) 7.7 Eos % (Auto) 0.3 Baso % (Auto) 0.6 Lymph # (Auto) 1.29 [place] # (Auto) 0.9 H Eos # (Auto) 0.0 Baso # (Auto) 0.1 Abs Immat Gran (auto) 0.12 H Absolute Neuts (auto) 9.4 H Absolute Nucleated RBC 0.000 Nucleated RBC % 0.0 Sodium 128 L Potassium 3.6 Chloride 97 L Carbon Dioxide 25 Anion Gap 6 BUN 16 Creatinine 0.60 L Estim Creat Clear Calc 110 Estimated GFR > 60 Glucose 188 H POC Capillary Glucose 210 H Calcium 8.0 L Total Bilirubin 1.1 AST 22 ALT 11 Alkaline Phosphatase 48 Total Protein 6.0 L Albumin 3.2 L Quality VTE Prophylaxis VTE prophylaxis: mechanical ordered
--- NOTE | 2024-04-02 08:25 | P.PNIM_ITS ---
Progress Note: A&P Assessment and Plan (1) Closed subcapital fracture of right femur: Code(s): S72.011A - Unspecified intracapsular fracture of right femur, initial encounter for closed fracture Status: Inactive Assessment and Plan: status post for had ORIF on 04/01/2024 * Ortho managing. * plan for OR today after potassium replaced * PRN pain meds * PRN anti-emetics * Robaxin added (2) Nausea and vomiting: Code(s): R11.2 - Nausea with vomiting, unspecified Status: Acute Assessment and Plan: related to pain medication Zofran, Reglan, scope patch (3) Syncope: Qualifiers: Encounter type: sequela Code(s): R55 - Syncope and collapse Status: Acute Assessment and Plan: * Carotid dopplers showing less than 50% stenosis in both LETICIA and LICA. * ECHO: 65-70% * Telemetry continued. * Bedrest * Fall precautions (4) Insulin dependent diabetes mellitus: Status: Acute Assessment and Plan: * continue current glycemic management. * Diabetic diet (5) Hypertension: Code(s): I10 - Essential (primary) hypertension Status: Chronic Assessment and Plan: * Stable BP. * Continue home medication regimen * Monitor (6) Hypothyroidism: Code(s): E03.9 - Hypothyroidism, unspecified Status: Chronic Assessment and Plan: * Continue home medication regimen (7) Hyperlipidemia: Code(s): E78.5 - Hyperlipidemia, unspecified Status: Acute Assessment and Plan: * Continue home medication regimen (8) Total bilirubin, elevated: Code(s): R17 - Unspecified jaundice Status: Acute Assessment and Plan: resolved patient is not jaundiced, repeat CMP total bilirubin within normal Time Spent With Patient Time with patient: Greater than 35 minutes Subjective Date/time seen: 04/02/24 08:25 Interval history: 69-year-old male with insulin-dependent diabetes, diabetic neuropathy, hypertension, hyperlipidemia, and hypothyroidism who presented to the emergency department via EMS from home for evaluation of right hip pain after a fall with Closed subcapital fracture of femur patient with pain med induced nausea and vomiting scope patch added sodium 128, total bilirubin within normal limits, liver enzymes within normal limits plan for PT and OT and discharge planning Review of Systems Review of Systems: 12 systems were reviewed and are negativ e except for as per HPI. All systems reviewed & are unremarkable except as noted in HPI and below Exam Narrative: General: Nontoxic-appearing gentleman supine in bed in no acute distress. Weight: 90.4 kg. BMI: 26.3. HEENT: Small abrasion on the bridge of the right side of the nose. PERRL, EOMI. Sclera anicteric. Tacky mucous membranes. Neck: Supple. No midline vertebral tenderness. Respiratory: Lungs are clear to auscultation bilaterally. Cardiovascular: Regular rate and rhythm with S1-S2. Gastrointestinal: Abdomen is soft, nontender, and nondistended with positive bowel sounds. Skin: Warm and dry. Scattered excoriations on the chest. Small abrasion on the elbow. Extremities: No cyanosis, clubbing, or edema. Radial and pedal pulses intact. Musculoskeletal: right lower extremity with surgical dressing clean dry intact Neurological: Alert. Cranial nerves 2-12 are grossly intact. No gross focal deficits to casual conversation. Psychiatric: Pleasant and cooperative with normal mood and affect. Objective Data Vital Signs Vital Signs: Vital Signs - 24 hr 04/01/24 09:50 04/01/24 16:57 04/01/24 17:26 Temperature 98.2 F 97 F L Pulse Rate 83 84 Respiratory Rate 20 Blood Pressure 140/85 154/91 H Pulse Oximetry 98 96 Oxygen Delivery Room Air Room Air Oxygen Flow Rate 04/01/24 19:15 04/01/24 19:30 04/01/24 19:45 Temperature 97.0 F L Pulse Rate 96 79 82 Respiratory Rate 16 16 18 Blood Pressure 142/70 H 137/64 110/61 Pulse Oximetry 98 95 95 Oxygen Delivery Simple Face Mask Room Air Room Air Oxygen Flow Rate 8 04/01/24 20:00 04/01/24 20:42 04/01/24 21:57 Temperature 97.7 F 98.2 F Pulse Rate 78 76 83 Respiratory Rate 12 20 20 Blood Pressure 104/65 118/60 140/85 Pulse Oximetry 96 100 98 Oxygen Delivery Room Air Oxygen Flow Rate 04/02/24 00:06 04/02/24 04:18 Temperature 98.3 F 98.6 F Pulse Rate 80 81 Respiratory Rate 20 20 Blood Pressure 125/80 130/81 Pulse Oximetry 94 95 Oxygen Delivery Oxygen Flow Rate Intake/Output Intake/Output: Intake & Output 03/30/24 03/31/24 04/01/24 04/02/24 23:59 23:59 23:59 23:59 Intake Total 1000 620 450 325 Output Total 1050 300 Balance 1000 -430 150 325 Meds/Results Medications: Active Medications Generic Name Dose Route Start Last Admin Trade Name Freq PRN Reason Stop Dose Admin Acetaminophen 500 mg 04/01/24 20:12 Acetaminophen 500 Mg Tablet PO Q6H PRN Pain Rated 1-3 Dextrose 12.5 gm 03/30/24 14:36 Dextrose 50% 25 Gm/50 Ml Syringe IV PUSH PRN PRN Hypoglycemia Protocol Enoxaparin Sodium 30 mg 04/02/24 09:00 Enoxaparin 30 Mg/0.3 Ml Syringe SUB-Q DAILY MICHAEL Glucagon 1 mg 03/30/24 14:36 Glucagon For Inj 1 Mg Vial IM PRN PRN Hypoglycemia Protocol Glucose 15 gm 03/30/24 14:36 Glucose Oral Gel 15 Gm Of Glucse In 37.5 Gm Tube PO PRN PRN Hypoglycemia Protocol Hydromorphone HCl 1 mg 04/01/24 20:12 04/01/24 22:10 Hydromorphone Hcl Inj (*Crx) 1 Mg/Ml Syr IV PUSH 1 mg Q2H PRN Administration Breakthrough Pain Rated 7-10 or NPO Hydromorphone HCl 0.5 mg 04/01/24 20:12 Hydromorphone Hcl Inj (*Crx) 1 Mg/Ml Syr IV PUSH Q2H PRN Breakthrough Pain Rated 4-6 or NPO Hydroxyzine Pamoate 50 mg 04/01/24 20:12 Hydroxyzine Pamoate 25 Mg Capsule PO Q4H PRN Itching Dextrose 1,000 mls @ 100 mls/hr 03/30/24 14:36 Dextrose 5% 1,000 Ml IVPB PRN PRN Hypoglycemia Protocol Lactated Ringer's 1,000 mls @ 30 mls/hr 04/01/24 17:00 04/01/24 19:37 Lr - Lactated Ringers Iv IV CONT Infused .Q24H MICHAEL Infusion Lactated Ringer's 1,000 mls @ 30 mls/hr 04/01/24 17:00 04/01/24 20:07 Lr - Lactated Ringers Iv IV CONT Infused .Q24H MICHAEL Infusion Sodium Chloride 1,000 mls @ 125 mls/hr 04/01/24 20:12 04/01/24 23:57 Normal Saline Iv IV CONT Not Given .Q8H MICHAEL Cefazolin Sodium 2 gm in 50 mls @ 100 mls/hr 04/02/24 00:00 04/02/24 00:53 Ancef 2 Gm/D5w 50 Ml IVPB 04/02/24 16:29 100 mls/hr Q8H MICHAEL Administration Insulin Aspart 3 - 6 units 03/30/24 17:00 04/01/24 17:56 Insulin Aspart (*Bkc) 100 Units/Ml SUB-Q Not Given TIDWM [facility] Protocol Insulin Aspart 1 - 3 units 03/30/24 21:00 04/02/24 01:37 Insulin Aspart (*Bkc) 100 Units/Ml SUB-Q Not Given HS [facility] Protocol Levothyroxine Sodium 200 mcg 03/31/24 07:45 04/02/24 07:25 Levothyroxine Sodium 100 Mcg Tablet PO 200 mcg DAILY@0630 [facility] Administration Lisinopril 20 mg 03/31/24 09:00 04/01/24 12:07 Lisinopril 20 Mg Tablet PO Not Given DAILY [facility] Methocarbamol 500 mg 04/01/24 17:00 04/01/24 20:53 Methocarbamol 500 Mg Tablet PO 500 mg QID [facility] Administration Naloxone HCl 0.1 mg 04/01/24 20:12 Naloxone Hcl 0.4 Mg/Ml Vial IV PUSH Q2M PRN Opiate Reversal Ondansetron HCl 4 mg 04/01/24 20:12 Ondansetron Inj 4 Mg/2 Ml Vial IV PUSH Q4H PRN Nausea And Vomiting Oxycodone/Acetaminophen 1 tablet 04/01/24 20:12 Oxycodone/Acetaminophen (*Crx) 5-325 Mg Tablet PO Q4H PRN Pain Rated 4-6 Oxycodone/Acetaminophen 1 tab 04/01/24 20:12 04/01/24 20:53 Oxycodone/Acetaminophen (*Crx) 10-325 Mg Tablet PO 1 tab Q6H PRN Administration Pain Rated 7-10 Polyethylene Glycol 17 gm 04/02/24 09:00 Polyethylene Glycol 3350 17 Gm Powd.Pack PO QAM [facility] Rosuvastatin Calcium 5 mg 03/31/24 09:00 04/01/24 12:07 Rosuvastatin 5 Mg Tablet PO Not Given DAILY [facility] Senna/Docusate Sodium 2 tab 04/02/24 09:00 Senna/Docusate Sodium Tablet PO BID MICHAEL Radiology Results: ITS Impressions Hip/Pelvis X-Ray 03/30/24 12:17 IMPRESSION: Right subcapital femoral neck fracture Chest X-Ray 03/30/24 12:18 IMPRESSION: No active cardiopulmonary disease Knee X-Ray 03/30/24 13:05 IMPRESSION: No fracture or dislocation or joint effusion is detected Osteopenia Carotid Doppler Study 03/30/24 15:39 IMPRESSION: 1. Less than 50% stenosis in the right internal carotid artery. 2. Less than 50% stenosis in the left internal carotid artery. Hip X-Ray 04/01/24 19:53 IMPRESSION: Expected perioperative appearance of a right total hip arthroplasty. Labs Labs: Laboratory Results - last 24 hr 04/01/24 04/01/24 04/01/24 11:13 17:08 19:34 WBC RBC Hgb Hct MCV MCH MCHC RDW Plt Count MPV Immature Gran % (Auto) Neut % (Auto) Lymph % (Auto) [place] % (Auto) Eos % (Auto) Baso % (Auto) Lymph # (Auto) [place] # (Auto) Eos # (Auto) Baso # (Auto) Abs Immat Gran (auto) Absolute Neuts (auto) Absolute Nucleated RBC Nucleated RBC % Sodium Potassium Chloride Carbon Dioxide Anion Gap BUN Creatinine Estim Creat Clear Calc Estimated GFR Glucose POC Capillary Glucose 181 H 210 H 191 H Calcium Total Bilirubin AST ALT Alkaline Phosphatase Total Protein Albumin 04/01/24 04/02/24 21:58 06:46 WBC 11.8 H RBC 4.47 L Hgb 13.5 L Hct 38.5 L MCV 86.1 MCH 30.2 MCHC 35.1 RDW 11.8 Plt Count 171 MPV 9.6 Immature Gran % (Auto) 1.0 H Neut % (Auto) 79.5 H Lymph % (Auto) 10.9 L [place] % (Auto) 7.7 Eos % (Auto) 0.3 Baso % (Auto) 0.6 Lymph # (Auto) 1.29 Bates # (Auto) 0.9 H Eos # (Auto) 0.0 Baso # (Auto) 0.1 Abs Immat Gran (auto) 0.12 H Absolute Neuts (auto) 9.4 H Absolute Nucleated RBC 0.000 Nucleated RBC % 0.0 Sodium 128 L Potassium 3.6 Chloride 97 L Carbon Dioxide 25 Anion Gap 6 BUN 16 Creatinine 0.60 L Estim Creat Clear Calc 110 Estimated GFR > 60 Glucose 188 H POC Capillary Glucose 210 H Calcium 8.0 L Total Bilirubin 1.1 AST 22 ALT 11 Alkaline Phosphatase 48 Total Protein 6.0 L Albumin 3.2 L Quality VTE Prophylaxis VTE prophylaxis: mechanical ordered
[2024-04-02] MEDS: ONDANSETRON INJ 4 MG/2 ML VIAL IV PUSH ×2 (08:45→17:25)
[2024-04-02] MEDS: polyethylene glycoL 3350 17 GM POWD.PACK PO (08:45)
[2024-04-02] MEDS: ENOXAPARIN 30 MG/0.3 ML SYRINGE SUB-Q (08:46)
[2024-04-02] MEDS: oxyCODONE/ACETAMINOPHEN (*CRX) 10-325 MG TABLET 1 TAB PO ×2 (08:46→17:25)
[2024-04-02] MEDS: SENNA/DOCUSATE SODIUM TABLET 2 TAB PO ×2 (08:46→17:26)
[2024-04-02] MEDS: ROSUVASTATIN 5 MG TABLET PO (08:46)
[2024-04-02] MEDS: methocarbamoL 500 MG TABLET PO ×2 (08:46→13:14)
[2024-04-02] MEDS: lisinopriL 20 MG TABLET PO (08:47)
[2024-04-02 09:17] LABS: Glucose Point of Care 205 mg/dl (65-105)
[2024-04-02 09:53] VITALS: BP 120/58; PULSE 81; RESP 18; TEMP 37.4; O2SAT 100
--- NOTE | 2024-04-02 10:21 | PC.NURSE ---
Pt RN found pt home humalog kiwk pen on bedside table during morning med pass. I asked pt when the last time he received medication from it. Pt stated, not long ago , but he couldnt remember who gave it to him because there are so many of us coming in and out . Removed pen from room and put in home medication research computing specialist front med room. Non-admin'ed morning sliding scale dose of novolog d/t uncertainty of when med might have been administered.
--- NOTE | 2024-04-02 10:43 | P.PNAN_ITS ---
Anes - Prog Note Post-Op Date/Time: 04/02/24 10:43 Cardiovascular status: normal Respiratory status: normal Airway patency: baseline Mental status: baseline Post-Op hydration status: normal Vital Signs: Last Vital Signs Temp 99.3 F 04/02/24 09:53 Pulse 81 04/02/24 09:53 Resp 18 04/02/24 09:53 BP 120/58 L 04/02/24 09:53 Pulse Ox 100 04/02/24 09:53 O2 Del Method Room Air 04/01/24 20:00 O2 Flow Rate 8 04/01/24 19:15 Pain Score (VAS): 0/10 I/O: Intake & Output 04/01/24 04/02/24 04/02/24 23:59 07:59 15:59 Intake Total 450 375 240 Output Total 300 Balance 150 375 240 Laboratory Tests 04/02/24 06:46 04/02/24 06:46 04/01/24 04/01/24 04/01/24 11:13 17:08 19:34 WBC RBC Hgb Hct MCV MCH MCHC RDW Plt Count MPV Immature Gran % (Auto) Neut % (Auto) Lymph % (Auto) [place] % (Auto) Eos % (Auto) Baso % (Auto) Lymph # (Auto) [place] # (Auto) Eos # (Auto) Baso # (Auto) Abs Immat Gran (auto) Absolute Neuts (auto) Absolute Nucleated RBC Nucleated RBC % Sodium Potassium Chloride Carbon Dioxide Anion Gap BUN Creatinine Estim Creat Clear Calc Estimated GFR Glucose POC Capillary Glucose 181 H 210 H 191 H Calcium Total Bilirubin AST ALT Alkaline Phosphatase Total Protein Albumin 04/01/24 04/02/24 04/02/24 21:58 06:46 08:12 WBC 11.8 H RBC 4.47 L Hgb 13.5 L Hct 38.5 L MCV 86.1 MCH 30.2 MCHC 35.1 RDW 11.8 Plt Count 171 MPV 9.6 Immature Gran % (Auto) 1.0 H Neut % (Auto) 79.5 H Lymph % (Auto) 10.9 L [place] % (Auto) 7.7 Eos % (Auto) 0.3 Baso % (Auto) 0.6 Lymph # (Auto) 1.29 [place] # (Auto) 0.9 H Eos # (Auto) 0.0 Baso # (Auto) 0.1 Abs Immat Gran (auto) 0.12 H Absolute Neuts (auto) 9.4 H Absolute Nucleated RBC 0.000 Nucleated RBC % 0.0 Sodium 128 L Potassium 3.6 Chloride 97 L Carbon Dioxide 25 Anion Gap 6 BUN 16 Creatinine 0.60 L Estim Creat Clear Calc 110 Estimated GFR > 60 Glucose 188 H POC Capillary Glucose 210 H 205 H Calcium 8.0 L Total Bilirubin 1.1 AST 22 ALT 11 Alkaline Phosphatase 48 Total Protein 6.0 L Albumin 3.2 L Post-procedural complaints: none Patient Feedback: Patient satisfied with anesthetic care.
[2024-04-02 11:57] LABS: Glucose Point of Care 241 mg/dl (65-105)
--- NOTE | 2024-04-02 12:50 | PCPTNOTE ---
Patient refused 1st attempt this afternoon to be seen reporting he is in too much pain and is too nauseous. Spoke with RN about giving patient something for pain and nausea and she was going to be providing meds to the patient and advised therapist return in 1hr to re-attempt. Patient was informed of this and patient reported that he still wants to 'pass on treatment' this afternoon. Will come back and re-attempt to see patient in 1 hour once medications have been given.
[2024-04-02] MEDS: SODIUM CHLORIDE 0.9% IV 1,000 ML 125 ML IV CONT ×2 (13:10→17:33)
[2024-04-02] MEDS: SCOPOLAMINE 1 MG PATCH 1 PATCH TRANSDERM (13:10)
[2024-04-02] MEDS: METOCLOPRAMIDE HCL INJ 10 MG/2 ML VIAL 5 MG IV PUSH (13:12)
[2024-04-02] MEDS: HYDROmorphone HCL INJ (*CRX) 1 MG/ML SYR 0.5 MG IV PUSH (13:12)
[2024-04-02 13:57] VITALS: BP 120/70; PULSE 95; RESP 18; TEMP 37.3; O2SAT 90
[2024-04-02] MEDS: SODIUM CHLORIDE 0.9% IV 500 ML IV CONT (16:10)
[2024-04-02 17:08] LABS: Glucose Point of Care 286 mg/dl (65-105)
[2024-04-02 17:57] VITALS: BP 110/50; PULSE 84; RESP 18; TEMP 37.1; O2SAT 97
[2024-04-02 21:18] LABS: Glucose Point of Care 350 mg/dl (65-105)
[2024-04-02 21:19] LABS: Glucose Point of Care 346 mg/dl (65-105)
[2024-04-02] MEDS: INSULIN ASPART (*BKC) 100 UNITS/ML SUB-Q (21:31)
[2024-04-02 21:57] VITALS: BP 111/72; PULSE 83; RESP 20; TEMP 36.8; O2SAT 96
[2024-04-03] MEDS: methocarbamoL 500 MG TABLET PO ×5 (01:36→20:39)
[2024-04-03 05:50] VITALS: BP 119/69; PULSE 92; RESP 20; TEMP 36.4; O2SAT 95
[2024-04-03] MEDS: LEVOTHYROXINE SODIUM 100 MCG TABLET 200 MCG PO (07:17)
[2024-04-03] MEDS: oxyCODONE/ACETAMINOPHEN (*CRX) 10-325 MG TABLET 1 TAB PO (07:21)
[2024-04-03 08:34] LABS: Glucose Point of Care 264 mg/dl (65-105)
[2024-04-03] MEDS: polyethylene glycoL 3350 17 GM POWD.PACK PO (10:03)
[2024-04-03] MEDS: SENNA/DOCUSATE SODIUM TABLET 2 TAB PO ×2 (10:03→16:47)
[2024-04-03] MEDS: ROSUVASTATIN 5 MG TABLET PO (10:03)
[2024-04-03] MEDS: INSULIN ASPART (*BKC) 100 UNITS/ML SUB-Q ×3 (10:05→20:40)
[2024-04-03 12:22] LABS: Glucose Point of Care 297 mg/dl (65-105)
[2024-04-03] MEDS: SODIUM CHLORIDE 0.9% IV 1,000 ML 100 ML IV CONT (13:02)
[2024-04-03] MEDS: ACETAMINOPHEN 500 MG TABLET PO (13:02)
--- NOTE | 2024-04-03 14:10 | P.DS_ITS ---
DS: Admitting Diagnosis Discharge Date 04/03/24 Admitting Diagnosis Closed Subcapital Fx right Femur, Syncope and Collapse, IDDM, HTN, hypothyroidism and HLD DS: Discharge Diagnosis Discharge Diagnosis (1) Closed subcapital fracture of right femur: Code(s): S72.011A - Unspecified intracapsular fracture of right femur, initial encounter for closed fracture Status: Acute Assessment and Plan: status post for had ORIF on 04/01/2024 * Ortho managing. * plan for OR today after potassium replaced * PRN pain meds * PRN anti-emetics * Robaxin added 04/03/24: * Pt is status post repair on . * Stable for discharge today to [facility]. * Continue PRN pain meds. (2) Nausea and vomiting: Code(s): R11.2 - Nausea with vomiting, unspecified Status: Acute Assessment and Plan: related to pain medication Zofran, Reglan, scope patch 04/03/24: * Continue PRN pain and anti-emetic meds. (3) Syncope: Qualifiers: Encounter type: sequela Code(s): R55 - Syncope and collapse Status: Acute Assessment and Plan: * Carotid dopplers showing less than 50% stenosis in both LETICIA and LICA. * ECHO: 65-70% * Telemetry continued. * Bedrest * Fall precautions 04/03/24: * Uncertain of etiology of syncope, but suspect an orthostatic component. * Pt has been well hydrated and is stable. * Pt indicates syncope has occurred before in very similar pattern. (4) Insulin dependent diabetes mellitus: Status: Acute Assessment and Plan: * continue current glycemic management. * Diabetic diet 04/03/24: * Continue current regimen. * A1C is 10.3. * Needs tighter glucose control to allow for optimal healing from his surgery. (5) Hypertension: Code(s): I10 - Essential (primary) hypertension Status: Chronic Assessment and Plan: * Stable BP. * Continue home medication regimen * Monitor 04/03/24: * Continue meds (6) Hypothyroidism: Code(s): E03.9 - Hypothyroidism, unspecified Status: Chronic Assessment and Plan: * Continue home medication regimen 04/03/24: * Continue meds (7) Hyperlipidemia: Code(s): E78.5 - Hyperlipidemia, unspecified Status: Acute Assessment and Plan: * Continue home medication regimen 04/03/24: * Continue meds * Continue diabetic/heart healthy diet (8) Total bilirubin, elevated: Code(s): R17 - Unspecified jaundice Status: Resolved Assessment and Plan: resolved patient is not jaundiced, repeat CMP total bilirubin within normal Plan Discharge To [facility] DS: Summary Hospital Course Reason for hospitalization: Syncope and collapse, Right intracapsular fracture s/p repair. Hospital Course: This is a 69-year-old male with insulin-dependent diabetes, diabetic neuropathy, hypertension, hyperlipidemia, and hypothyroidism who presented to the emergency department via EMS from home for evaluation of right hip pain after a fall at home sustained on 03/27/24. On afternoon he sat up rather quickly to get something in the living room and shortly thereafter he began to feel lightheaded and dizzy. He then had a brief loss of consciousness and woke up on the floor on his right side. He had immediate pain in the right hip and knee and was unable to get himself up. He has apparently been on the floor since that time and he refused to allow his to call 911 until three days later on 03/30/24 when their son came and talked him into it. also stated that he had hardly anything to eat in the 3 days and had multiple episodes of emesis. Aside from the right hip pain, he did not have any new complaints. He has a history of syncope for which he has been hospitalized and was told it was likely a vasovagal syncope. He did not recall having sensations of racing heart, palpitations, chest pain, pleuritic pain, or shortness of breath prior to the event. He also denied fever, chills, sweats, cold and flu symptoms, hematemesis, diarrhea, and dysuria. In the ED: He was afebrile on arrival with stable vital signs.? Labs are significant for WBC count of 15.1, sodium 131, chloride 94, anion gap 14, BUN 24, creatinine 0.60, glucose 300, total bilirubin 2.1, CK 213, troponin less than 0.012. He tested negative for influenza, RSV, and COVID. Radiographs showed a right subcapital femoral neck fracture and he was admitted in this setting for pain control and orthopedic consultation. Further testing preparing for surgical repair includes ECHO showing normal LVSF w/EF of 65-70% and Grade 1 Diastolic dysfunction. Carotid dopplers were also performed that showed less than 50% stenosis in both the LETICIA and the LICA. He underwent ORIF on 04/01/24. His post-operative course has been complicated by pain and him not wanting to eat a lot. He has been accepted for [facility] placement and is stable for discharge at this time. Status at Discharge Cognitive/behavioral status at discharge: At baseline Functional status at discharge: uses cane/walker Overall status at discharge: patient is not back to baseline Time Spent with Patient Time attestation: Total time spent providing and/or coordinating discharge services: Time spent: Greater than 30 minutes Specific discharge activities: Follow up, medications Exam Narrative: General: Nontoxic-appearing gentleman supine in bed in no acute distress. Weight: 90.4 kg. BMI: 26.3. HEENT: Small abrasion on the bridge of the right side of the nose. PERRL, EOMI. Sclera anicteric. Tacky mucous membranes. Neck: Supple. No midline vertebral tenderness. Respiratory: Lungs are clear to auscultation bilaterally. Cardiovascular: Regular rate and rhythm with S1-S2. Gastrointestinal: Abdomen is soft, nontender, and nondistended with positive bowel sounds. Skin: Warm and dry. Scattered excoriations on the chest. Small abrasion on the elbow. Extremities: No cyanosis, clubbing, or edema. Radial and pedal pulses intact. Musculoskeletal: right lower extremity with surgical dressing clean dry intact Neurological: Alert. Cranial nerves 2-12 are grossly intact. No gross focal deficits to casual conversation. Psychiatric: Pleasant and cooperative with normal mood and affect. DS: Data Data Completed and Pending Completed studies during hospitalization: ITS Impressions Hip/Pelvis X-Ray 03/30/24 12:17 IMPRESSION: Right subcapital femoral neck fracture Chest X-Ray 03/30/24 12:18 IMPRESSION: No active cardiopulmonary disease Knee X-Ray 03/30/24 13:05 IMPRESSION: No fracture or dislocation or joint effusion is detected Osteopenia Carotid Doppler Study 03/30/24 15:39 IMPRESSION: 1. Less than 50% stenosis in the right internal carotid artery. 2. Less than 50% stenosis in the left internal carotid artery. Hip X-Ray 04/01/24 19:53 IMPRESSION: Expected perioperative appearance of a right total hip arthroplasty. Labs on day of discharge: Labs from last 24 hours 04/03/24 04/03/24 04/02/24 12:12 08:26 21:03 POC Capillary Glucose 297 H 264 H 346 H 04/02/24 04/02/24 19:46 16:44 POC Capillary Glucose 350 H 286 H Discharge Plan Discharge Attending physician on discharge: Dede Norton Consulting providers: Ugo Johns Discharging Clinician: Dede Norton Anticipated Discharge Date/Time: 04/03/24 14:26 Patient Disposition: [facility] Activity: as tolerated and follow weight bearing status Diet: diabetic Wound Care Instructions: other - see discharge instructions Discharge Instructions: Ortho instructions: Bipolar hemiarthroplasty 04/01/24. * D/C to rehab. * Xray and follow up in office in 4-6 weeks. Please call [facility] for appointment details. * Wound Care: Remove Mepilex dressing at 7 days post op (04/08/24). Remove steristrips at 14 days post op unless they come off sooner. May shower. No soaking. * PT: Weight bearing as tolerated. Follow hip precautions. Use walker. * DVT prophylaxis: continue Lovenox for 30 days total * Pain medication: Oxycodone (printed script). Patient Language: Sami Follow-up/Referrals: Ophelia Farnsworth PA [Physician [employer]] - Discharge Medications: New oxycodone-acetaminophen 5-325 mg tablet 1 - 2 tablet PO Q4-6H PRN (Reason: pain) Qty: 30 0RF insulin aspart U-100 [Novolog U-100 Insulin aspart] 100 unit/mL Solution 1 - 3 unit subcut HS Qty: 10 0RF Protocol: Insulin Corrective Moderate-Dose Condition: glucose < 70 mg/dl Dose/Route: Follow hypoglycemia orders Condition: glucose 70-200 mg/dl Dose/Route: No additional insulin Condition: glucose 201-250 mg/dl Dose/Route: 1 units sub-Q Condition: glucose 251-300 mg/dl Dose/Route: 2 units sub-Q Condition: glucose 301-350 mg/dl Dose/Route: 2 units sub-Q Condition: glucose 351-400 mg/dl Dose/Route: 3 units sub-Q Condition: glucose > 400 mg/dl Dose/Route: Call enoxaparin 30 mg/0.3 mL Syringe 30 mg subcut DAILY 30 Days Qty: 9 0RF insulin aspart U-100 [Novolog U-100 Insulin aspart] 100 unit/mL Solution 3 - 6 unit subcut TIDWM Qty: 10 0RF Protocol: Insulin Corrective Moderate-Dose Condition: glucose < 70 mg/dl Dose/Route: Follow hypoglycemia orders Condition: glucose 70-200 mg/dl Dose/Route: No additional insulin Condition: glucose 201-250 mg/dl Dose/Route: 3 units sub-Q Condition: glucose 251-300 mg/dl Dose/Route: 4 units sub-Q Condition: glucose 301-350 mg/dl Dose/Route: 5 units sub-Q Condition: glucose 351-400 mg/dl Dose/Route: 6 units sub-Q Condition: glucose > 400 mg/dl Dose/Route: Call Protocol Text: *No Correction Dose at Bedtime* Continued levothyroxine [Synthroid] 200 mcg tablet 200 mcg PO DAILY lisinopril 20 mg tablet 20 mg PO DAILY B12 BYMOUTH cholecalciferol (vitamin D3) 1,250 mcg (50,000 unit) capsule 1,250 mcg PO WEEKLY Humulin R U-500 (Conc) Kwikpen 500 unit/mL (3 mL) insulin pen See Rx Instructions subcut BIDWMEAL 90 Days Qty: 30 1RF Rx Instructions: 90 units before breakfast and 60 units before dinner subcutaneously 2 times per day with meals; rosuvastatin 5 mg tablet 5 mg PO DAILY Qty: 90 1RF Discontinued Humulin N NPH Insulin KwikPen 100 unit/mL (3 mL) insulin pen 88 unit subcut BID Rx Instructions: 44 U in the morning, 44 U at night Date of admission: 03/30/24 14:27 Primary Care Provider: isaac enrique Admitting Provider: Taj Young Attending physician on admission: Dede Norton Condition: Stable Quality VTE Prophylaxis VTE prophylaxis: pharmacologic ordered Hospitalist MIPS Heart Failure (Exclusion) Patient has history of Heart Transplant or Left Ventricular Assistive Device?: No IF YES, STOP HERE Heart Failure (Qualifier) Patient has current or prior documentation of LVEF less than or equal to 40%, or mod/servere depressed LVSF?: No IF NO, STOP HERE
--- NOTE | 2024-04-03 14:36 | P.PNOP_ITS ---
Progress Note: A&P Assessment and Plan (1) Closed subcapital fracture of femur: Qualifiers: Encounter type: initial encounter Laterality: right Qualified Code(s): S72.011A - Unspecified intracapsular fracture of right femur, initial encounter for closed fracture Code(s): S72.019A - Unspecified intracapsular fracture of unspecified femur, initial encounter for closed fracture Status: Acute Assessment and Plan: Postop day 2: Bipolar hemiarthroplasty right hip. Patient tolerated procedure well. No complications. Pain manageable with pain medication. No numbness or tingling. Will benefit from rehab at discharge. He has chronic orthostatic hypotension. Therapy has not been able to get him up due to this. Per the nurse, the patient is asking for more pain medication stating he has 8/10 pain even when being woken up from sleep. This could be negatively affecting his hypotension as well. Will start to limit narcotic when able. Patient is chronically deconditioned and would benefit from rehab. As long as the patient is motivated, he should have a good prognosis with recovery. Ortho instructions: Bipolar hemiarthroplasty 04/01/24. * D/C to rehab. * Xray and follow up in office in 4-6 weeks. Please call [facility] for appointment details. * Wound Care: Remove Mepilex dressing at 7 days post op (04/08/24). Remove steristrips at 14 days post op unless they come off sooner. May shower. No soaking. * PT: Weight bearing as tolerated. Follow hip precautions. Use walker. * DVT prophylaxis: continue Lovenox for 30 days total * Pain medication: Oxycodone (printed script). Limit narcotic pain medication when able. Subjective Subjective Date/Time Seen: 04/03/24 14:36 Interval history: Patient complains of pain and chronic hypotension. Has not been able to get up to walk with therapy yet due to hypotension. He feels dizzy and lightheaded. Review of Systems Review of Systems: All systems reviewed & are unremarkable except as noted in HPI and below Exam Narrative: Overweight 69 y/o Male. Attempting to get up with therapy at the time of my visit. Patient was getting a bolus of fluid due to orthostatic hypotension. Dressing dry and intact with no drainage. Mild swelling. No edema. No ecchymosis. No erythema. No hematoma. Range of motion limited due to pain. Calf nontender. Thigh nontender. No varicosities. Distal pulses palpable. Wiggles toes. Objective Data Vital Signs Vital Signs: Vital Signs - 24 hr 04/02/24 16:07 04/02/24 17:57 04/02/24 20:00 Temperature 98.7 F Pulse Rate 84 Respiratory Rate 18 Blood Pressure 110/50 L Pulse Oximetry 97 Oxygen Delivery Room Air Room Air 04/02/24 21:57 04/03/24 05:50 Temperature 98.3 F 97.6 F Pulse Rate 83 92 Respiratory Rate 20 20 Blood Pressure 111/72 119/69 Pulse Oximetry 96 95 Oxygen Delivery Intake/Output Intake/Output: Intake & Output 03/31/24 04/01/24 04/02/24 04/03/24 23:59 23:59 23:59 23:59 Intake Total 730 484 5157 980 Output Total 6003 612 1841 Balance -579 370 6344 -45 Meds/Results Medications: Active Medications Generic Name Dose Route Start Last Admin Trade Name Freq PRN Reason Stop Dose Admin Acetaminophen 500 mg 04/01/24 20:12 04/03/24 13:02 Acetaminophen 500 Mg Tablet PO 500 mg Q6H PRN Administration Pain Rated 1-3 Dextrose 12.5 gm 03/30/24 14:36 Dextrose 50% 25 Gm/50 Ml Syringe IV PUSH PRN PRN Hypoglycemia Protocol Enoxaparin Sodium 30 mg 04/02/24 09:00 04/03/24 10:20 Enoxaparin 30 Mg/0.3 Ml Syringe SUB-Q Not Given DAILY [facility] Glucagon 1 mg 03/30/24 14:36 Glucagon For Inj 1 Mg Vial IM PRN PRN Hypoglycemia Protocol Glucose 15 gm 03/30/24 14:36 Glucose Oral Gel 15 Gm Of Glucse In 37.5 Gm Tube PO PRN PRN Hypoglycemia Protocol Hydromorphone HCl 1 mg 04/01/24 20:12 04/01/24 22:10 Hydromorphone Hcl Inj (*Crx) 1 Mg/Ml Syr IV PUSH 1 mg Q2H PRN Administration Breakthrough Pain Rated 7-10 or NPO Hydromorphone HCl 0.5 mg 04/01/24 20:12 04/02/24 13:12 Hydromorphone Hcl Inj (*Crx) 1 Mg/Ml Syr IV PUSH 0.5 mg Q2H PRN Administration Breakthrough Pain Rated 4-6 or NPO Hydroxyzine Pamoate 50 mg 04/01/24 20:12 Hydroxyzine Pamoate 25 Mg Capsule PO Q4H PRN Itching Dextrose 1,000 mls @ 100 mls/hr 03/30/24 14:36 Dextrose 5% 1,000 Ml IVPB PRN PRN Hypoglycemia Protocol Sodium Chloride 1,000 mls @ 125 mls/hr 04/01/24 20:12 04/02/24 17:33 Normal Saline Iv IV CONT 125 mls/hr .Q8H MICHAEL Administration Sodium Chloride 1,000 mls @ 100 mls/hr 04/03/24 11:20 04/03/24 13:02 Normal Saline Iv IV CONT 100 mls/hr .Q10H MICHAEL Administration Insulin Aspart 3 - 6 units 03/30/24 17:00 04/03/24 13:03 Insulin Aspart (*Bkc) 100 Units/Ml SUB-Q 4 units TIDWM MICHAEL Administration Protocol Insulin Aspart 1 - 3 units 03/30/24 21:00 04/02/24 21:31 Insulin Aspart (*Bkc) 100 Units/Ml SUB-Q 2 units HS MICHAEL Administration Protocol Levothyroxine Sodium 200 mcg 03/31/24 07:45 04/03/24 07:17 Levothyroxine Sodium 100 Mcg Tablet PO 200 mcg DAILY@0630 MICHAEL Administration Lisinopril 20 mg 03/31/24 09:00 04/03/24 10:03 Lisinopril 20 Mg Tablet PO Not Given DAILY MICHAEL Methocarbamol 500 mg 04/01/24 17:00 04/03/24 13:02 Methocarbamol 500 Mg Tablet PO 500 mg QID MICHAEL Administration Metoclopramide HCl 5 mg 04/02/24 11:55 04/02/24 13:12 Metoclopramide Hcl Inj 10 Mg/2 Ml Vial IV PUSH 5 mg Q6HR PRN Administration secondline for nausea/vomiting Naloxone HCl 0.1 mg 04/01/24 20:12 Naloxone Hcl 0.4 Mg/Ml Vial IV PUSH Q2M PRN Opiate Reversal Ondansetron HCl 4 mg 04/01/24 20:12 04/02/24 17:25 Ondansetron Inj 4 Mg/2 Ml Vial IV PUSH 4 mg Q4H PRN Administration Nausea And Vomiting Oxycodone/Acetaminophen 1 tablet 04/01/24 20:12 Oxycodone/Acetaminophen (*Crx) 5-325 Mg Tablet PO Q4H PRN Pain Rated 4-6 Oxycodone/Acetaminophen 1 tab 04/01/24 20:12 04/03/24 07:21 Oxycodone/Acetaminophen (*Crx) 10-325 Mg Tablet PO 1 tab Q6H PRN Administration Pain Rated 7-10 Polyethylene Glycol 17 gm 04/02/24 09:00 04/03/24 10:03 Polyethylene Glycol 3350 17 Gm Powd.Pack PO 17 gm QAM MICHAEL Administration Rosuvastatin Calcium 5 mg 03/31/24 09:00 04/03/24 10:03 Rosuvastatin 5 Mg Tablet PO 5 mg DAILY MICHAEL Administration Senna/Docusate Sodium 2 tab 04/02/24 09:00 04/03/24 10:03 Senna/Docusate Sodium Tablet PO 2 tab BID MICHAEL Administration Radiology Results: ITS Impressions Hip/Pelvis X-Ray 03/30/24 12:17 IMPRESSION: Right subcapital femoral neck fracture Chest X-Ray 03/30/24 12:18 IMPRESSION: No active cardiopulmonary disease Knee X-Ray 03/30/24 13:05 IMPRESSION: No fracture or dislocation or joint effusion is detected Osteopenia Carotid Doppler Study 03/30/24 15:39 IMPRESSION: 1. Less than 50% stenosis in the right internal carotid artery. 2. Less than 50% stenosis in the left internal carotid artery. Hip X-Ray 04/01/24 19:53 IMPRESSION: Expected perioperative appearance of a right total hip arthroplasty. Labs Labs: Laboratory Results - last 24 hr 04/02/24 04/02/24 04/02/24 16:44 19:46 21:03 POC Capillary Glucose 286 H 350 H 346 H 04/03/24 04/03/24 08:26 12:12 POC Capillary Glucose 264 H 297 H
[2024-04-03 16:37] LABS: Glucose Point of Care 187 mg/dl (65-105)
[2024-04-03] MEDS: MIDODRINE HCL 2.5 MG TABLET 5 MG PO (16:47)
[2024-04-03] MEDS: SODIUM CHLORIDE 0.9% IV 1,000 ML 999 ML IV CONT (16:49)
--- NOTE | 2024-04-03 18:05 | PC.NURSE ---
On 04/02/2024, pt working with OT and was moved to the chair and felt extremely weak, like he was going to pass out. Pt BP 80s/50s. Pt diaphoretic. Called Kiran who was covering for Myranda. Ordered 500 bolus NS given over one hour. Pt BP returned to 100s/60s. Pt had to be coaxed into eating, drinking, and attempting therapy. Pt required to feed him a cup of applesauce. Requesting repeated pain meds and nausea meds, despite appearing to be quite comfortable and FLACC score 0-2. Pt started on fluids at 100mls/hr as he had minimal intake. Report given to night RN. 04/03/2024, this RN had extensive education/conversation with pt and pt about pt's ongoing (2+ year prior history) of orthostatic hypotension symptoms, after pt completed PT and OT and had decreased BPs. Pt/ stated that they have never heard of this term. Pt will only lie in bed with head down, and has to motivate him work hard to get him up out of bed. Pt educated about OSMAR hose, working with therapy to get stronger, etc. Pt stated he just needs to rest when frequently prompted to eat, work with therapy, drink water, etc. stated pt has had TEDs previously and pt refuses to wear them at home. Call made to provider to notify her of pt symptoms/duration. Provider states not a new dx. Pt educated by provider. Order of IV fluids and OSMAR hose received. Provider called Andreas's office for D/C. Received order to d/c pt to [facility]. Pt attempted to work with PT, but became extremely lightheaded and faint with BP 70s/50s. Pt placed in chair with alarm. Ortho PA to bedside and noted pt not looking well. Ortho PA called provider. Provider returned to pt bedside and discussed with pt need to comply to become stronger and be able to go to acute rehab v SNF. Received order for bolus, midodrine TID. Meds given. Report called to Swetha. Swetha concerned about pt ortho, despite midodrine on. Explained it is chronic condition. DON at receiving facility stated [facility] would consider accepting pt 04/04/24 if midodrine proves effective. Charge and house sup made aware. Orders placed to do orthos q shift. Pt disagreeable to 04/03 day shift orthos.
[2024-04-03 20:34] LABS: Glucose Point of Care 244 mg/dl (65-105)
[2024-04-04] VITALS: BP 125/68; PULSE 90; RESP 18; TEMP 36.7; O2SAT 95
[2024-04-04] MEDS: LEVOTHYROXINE SODIUM 100 MCG TABLET 200 MCG PO (05:52)
[2024-04-04 06:37] VITALS: BP 141/75; PULSE 89; RESP 18; TEMP 36.5; O2SAT 96
[2024-04-04 06:47] LABS: Basophils Absolute Auto 0.1 K/mm3 (0.0-0.1); Basophils Percent Auto 0.5 % (0.2-1.2); Eosinophils Absolute Auto 0.2 K/mm3 (0-0.3); Eosinophils Percent Auto 1.6 % (0-4.4); Hematocrit 35.3 % (42.0-52.0); Hemoglobin 12.3 g/dL (14.0-18.0); Immature Granulocyte Absolute 0.21 K/mm3 (0.00-0.031); Immature Granulocyte Percent A 1.5 % (0-0.5); Lymphocytes Absolute Auto 0.96 K/mm3 (0.9-3.2); Mean Corpuscular HGB Conc 34.8 g/dl (32-36); Mean Corpuscular Hemoglobin 30.1 pg (26-34); Mean Corpuscular Volume 86.5 fl (80-100); Mean Platelet Volume 9.7 fl (7.4-10.4); Neutrophils Absolute Auto 11.3 K/mm3 (1.3-6.7); Neutrophils Percent Auto 82.4 % (45.5-73.1); Platelet Count Result 171 k/mm3 (150-375); Red Blood Count 4.08 M/mm3 (4.6-6.20); Red Cell Distribution Width 12.2 % (11.5-14.5); White Blood Count 13.7 K/mm3 (4.5-10.0)
[2024-04-04 06:59] LABS: Chloride 94 mmol/L (98-107)
[2024-04-04 07:03] LABS: Alanine Aminotransferase 8 U/L (6-50); Albumin Level 2.8 g/dL (3.5-5.1); Alkaline Phosphatase 54 U/L (38-126); Anion Gap 8 mmol/L (4-12); Aspartate Amino Transferase 17 U/L (17-59); Bilirubin,Total 0.9 mg/dL (0.2-1.3); Blood Urea Nitrogen 14 mg/dL (9-20); Calcium 8.2 mg/dL (8.4-10.2); Carbon Dioxide 27 mmol/L (22-30); Estimated CRCL calculation 112 ml/min; Estimated Glomerular Filt Rate > 60; Glucose 218 mg/dL (65-110); Magnesium 1.9 mg/dL (1.6-2.3); Sodium 129 mmol/L (137-145)
[2024-04-04 07:40] LABS: Potassium 3.6 mmol/L (3.4-5.0)
[2024-04-04 08:00] VITALS: BP 138/91; PULSE 89; RESP 20; TEMP 35.8; O2SAT 97
[2024-04-04 08:26] LABS: Glucose Point of Care 241 mg/dl (65-105)
[2024-04-04] MEDS: INSULIN ASPART (*BKC) 100 UNITS/ML SUB-Q ×4 (08:37→21:36)
[2024-04-04] MEDS: methocarbamoL 500 MG TABLET PO ×4 (08:38→20:15)
[2024-04-04] MEDS: SENNA/DOCUSATE SODIUM TABLET 2 TAB PO ×2 (08:38→17:27)
[2024-04-04] MEDS: ROSUVASTATIN 5 MG TABLET PO (08:39)
[2024-04-04] MEDS: MIDODRINE HCL 2.5 MG TABLET 5 MG PO (08:40)
[2024-04-04] MEDS: ENOXAPARIN 30 MG/0.3 ML SYRINGE SUB-Q (08:41)
[2024-04-04 10:51] VITALS: BP 97/82
[2024-04-04 11:35] VITALS: BP 134/72; PULSE 98; RESP 20; TEMP 36.1; O2SAT 97
[2024-04-04 11:50] LABS: Glucose Point of Care 293 mg/dl (65-105)
[2024-04-04] MEDS: SODIUM CHLORIDE 0.9% IV 1,000 ML 100 ML IV CONT ×2 (11:54→17:30)
--- NOTE | 2024-04-04 12:00 | P.PNOP_ITS ---
Progress Note: A&P Assessment and Plan (1) Closed subcapital fracture of femur: Qualifiers: Encounter type: initial encounter Laterality: right Qualified Code(s): S72.011A - Unspecified intracapsular fracture of right femur, initial encounter for closed fracture Code(s): S72.019A - Unspecified intracapsular fracture of unspecified femur, initial encounter for closed fracture Status: Acute Assessment and Plan: Postop day 3: Bipolar hemiarthroplasty right hip. Patient tolerated procedure well. No complications. Pain manageable with pain medication. No numbness or tingling. Will benefit from rehab at discharge. He has chronic orthostatic hypotension. Patient states he is motivated to work with therapy today. He will make sure he is eating and drinking. Patient agrees with limiting narcotic pain medication. Patient is chronically deconditioned and would benefit from rehab. As long as the patient is motivated, he should have a good prognosis with recovery. Okay for discharge once medically stable. Ortho instructions: Bipolar hemiarthroplasty 04/01/24. * D/C to rehab. * Xray and follow up in office in 4-6 weeks. Please call [facility] for appointment details. * Wound Care: Remove Mepilex dressing at 7 days post op (04/08/24). Remove steristrips at 14 days post op unless they come off sooner. May shower. No soaking. * PT: Weight bearing as tolerated. Follow hip precautions. Use walker. * DVT prophylaxis: continue Lovenox for 30 days total * Pain medication: Oxycodone (printed script). Limit narcotic pain medication when able. Subjective Subjective Date/Time Seen: 04/04/24 12:00 Interval history: Patient resting comfortably in bed. No acute distress. Sitting up to eat. Discussed importance of him getting up and working with therapy. He note that he is motivated and going to try. Review of Systems Review of Systems: All systems reviewed & are unremarkable except as noted in HPI and below Exam Narrative: Overweight 69 y/o Male. Laying in bed and eating breakfast at the time of my visit. Dressing dry and intact with no drainage. Mild swelling. No edema. No ecchymosis. No erythema. No hematoma. Range of motion limited due to pain. Calf nontender. Thigh nontender. No varicosities. Distal pulses palpable. Wiggles toes. Objective Data Vital Signs Vital Signs: Vital Signs - 24 hr 04/03/24 20:00 04/04/24 00:00 04/04/24 06:37 Temperature 98.1 F 97.7 F Pulse Rate 90 89 Respiratory Rate 18 18 Blood Pressure 125/68 141/75 H Pulse Oximetry 95 96 Oxygen Delivery Room Air 04/04/24 08:00 04/04/24 08:00 04/04/24 10:51 Temperature 96.4 F L Pulse Rate 89 89 Respiratory Rate 20 20 Blood Pressure 138/91 H 97/82 L Pulse Oximetry 97 97 Oxygen Delivery Room Air Intake/Output Intake/Output: Intake & Output 04/01/24 04/02/24 04/03/24 04/04/24 23:59 23:59 23:59 23:59 Intake Total 450 2145 1375 595 Output Total 300 1450 800 Balance 150 2145 -75 205 Meds/Results Medications: Active Medications Generic Name Dose Route Start Last Admin Trade Name Freq PRN Reason Stop Dose Admin Acetaminophen 500 mg 04/01/24 20:12 04/03/24 13:02 Acetaminophen 500 Mg Tablet PO 500 mg Q6H PRN Administration Pain Rated 1-3 Dextrose 12.5 gm 03/30/24 14:36 Dextrose 50% 25 Gm/50 Ml Syringe IV PUSH PRN PRN Hypoglycemia Protocol Enoxaparin Sodium 30 mg 04/02/24 09:00 04/04/24 08:41 Enoxaparin 30 Mg/0.3 Ml Syringe SUB-Q 30 mg DAILY MICHAEL Administration Glucagon 1 mg 03/30/24 14:36 Glucagon For Inj 1 Mg Vial IM PRN PRN Hypoglycemia Protocol Glucose 15 gm 03/30/24 14:36 Glucose Oral Gel 15 Gm Of Glucse In 37.5 Gm Tube PO PRN PRN Hypoglycemia Protocol Hydromorphone HCl 1 mg 04/01/24 20:12 04/01/24 22:10 Hydromorphone Hcl Inj (*Crx) 1 Mg/Ml Syr IV PUSH 1 mg Q2H PRN Administration Breakthrough Pain Rated 7-10 or NPO Hydromorphone HCl 0.5 mg 04/01/24 20:12 04/02/24 13:12 Hydromorphone Hcl Inj (*Crx) 1 Mg/Ml Syr IV PUSH 0.5 mg Q2H PRN Administration Breakthrough Pain Rated 4-6 or NPO Hydroxyzine Pamoate 50 mg 04/01/24 20:12 Hydroxyzine Pamoate 25 Mg Capsule PO Q4H PRN Itching Dextrose 1,000 mls @ 100 mls/hr 03/30/24 14:36 Dextrose 5% 1,000 Ml IVPB PRN PRN Hypoglycemia Protocol Sodium Chloride 1,000 mls @ 100 mls/hr 04/03/24 11:20 04/03/24 20:49 Normal Saline Iv IV CONT Not Given .Q10H [facility] Insulin Aspart 3 - 6 units 03/30/24 17:00 04/04/24 08:37 Insulin Aspart (*Bkc) 100 Units/Ml SUB-Q 3 units TIDWM [facility] Administration Protocol Insulin Aspart 1 - 3 units 03/30/24 21:00 04/03/24 20:40 Insulin Aspart (*Bkc) 100 Units/Ml SUB-Q 1 units HS [facility] Administration Protocol Levothyroxine Sodium 200 mcg 03/31/24 07:45 04/04/24 05:52 Levothyroxine Sodium 100 Mcg Tablet PO 200 mcg DAILY@0630 [facility] Administration Lisinopril 20 mg 03/31/24 09:00 04/03/24 10:03 Lisinopril 20 Mg Tablet PO Not Given DAILY [facility] Methocarbamol 500 mg 04/01/24 17:00 04/04/24 08:38 Methocarbamol 500 Mg Tablet PO 500 mg QID [facility] Administration Metoclopramide HCl 5 mg 04/02/24 11:55 04/02/24 13:12 Metoclopramide Hcl Inj 10 Mg/2 Ml Vial IV PUSH 5 mg Q6HR PRN Administration secondline for nausea/vomiting Midodrine 10 mg 04/04/24 13:00 Midodrine Hcl 10 Mg Tablet PO TID [facility] Naloxone HCl 0.1 mg 04/01/24 20:12 Naloxone Hcl 0.4 Mg/Ml Vial IV PUSH Q2M PRN Opiate Reversal Ondansetron HCl 4 mg 04/01/24 20:12 04/02/24 17:25 Ondansetron Inj 4 Mg/2 Ml Vial IV PUSH 4 mg Q4H PRN Administration Nausea And Vomiting Oxycodone/Acetaminophen 1 tablet 04/01/24 20:12 Oxycodone/Acetaminophen (*Crx) 5-325 Mg Tablet PO Q4H PRN Pain Rated 4-6 Oxycodone/Acetaminophen 1 tab 04/01/24 20:12 04/03/24 07:21 Oxycodone/Acetaminophen (*Crx) 10-325 Mg Tablet PO 1 tab Q6H PRN Administration Pain Rated 7-10 Polyethylene Glycol 17 gm 04/02/24 09:00 04/04/24 08:53 Polyethylene Glycol 3350 17 Gm Powd.Pack PO Not Given QAM MICHAEL Rosuvastatin Calcium 5 mg 03/31/24 09:00 04/04/24 08:39 Rosuvastatin 5 Mg Tablet PO 5 mg DAILY MICHAEL Administration Senna/Docusate Sodium 2 tab 04/02/24 09:00 04/04/24 08:38 Senna/Docusate Sodium Tablet PO 2 tab BID MICHAEL Administration Radiology Results: ITS Impressions Hip/Pelvis X-Ray 03/30/24 12:17 IMPRESSION: Right subcapital femoral neck fracture Chest X-Ray 03/30/24 12:18 IMPRESSION: No active cardiopulmonary disease Knee X-Ray 03/30/24 13:05 IMPRESSION: No fracture or dislocation or joint effusion is detected Osteopenia Carotid Doppler Study 03/30/24 15:39 IMPRESSION: 1. Less than 50% stenosis in the right internal carotid artery. 2. Less than 50% stenosis in the left internal carotid artery. Hip X-Ray 04/01/24 19:53 IMPRESSION: Expected perioperative appearance of a right total hip arthroplasty. Labs Labs: Laboratory Results - last 24 hr 04/03/24 04/03/24 04/03/24 12:12 16:25 19:57 WBC RBC Hgb Hct MCV MCH MCHC RDW Plt Count MPV Immature Gran % (Auto) Neut % (Auto) Lymph % (Auto) [place] % (Auto) Eos % (Auto) Baso % (Auto) Lymph # (Auto) [place] # (Auto) Eos # (Auto) Baso # (Auto) Abs Immat Gran (auto) Absolute Neuts (auto) Absolute Nucleated RBC Nucleated RBC % Sodium Potassium Chloride Carbon Dioxide Anion Gap BUN Creatinine Estim Creat Clear Calc Estimated GFR Glucose POC Capillary Glucose 297 H 187 H 244 H Calcium Magnesium Total Bilirubin AST ALT Alkaline Phosphatase Total Protein Albumin 04/04/24 04/04/24 04/04/24 06:35 08:23 11:46 WBC 13.7 H RBC 4.08 L Hgb 12.3 L Hct 35.3 L MCV 86.5 MCH 30.1 MCHC 34.8 RDW 12.2 Plt Count 171 MPV 9.7 Immature Gran % (Auto) 1.5 H Neut % (Auto) 82.4 H Lymph % (Auto) 7.0 L [place] % (Auto) 7.0 Eos % (Auto) 1.6 Baso % (Auto) 0.5 Lymph # (Auto) 0.96 [place] # (Auto) 1.0 H Eos # (Auto) 0.2 Baso # (Auto) 0.1 Abs Immat Gran (auto) 0.21 H Absolute Neuts (auto) 11.3 H Absolute Nucleated RBC 0.000 Nucleated RBC % 0.0 Sodium 129 L Potassium 3.6 Chloride 94 L Carbon Dioxide 27 Anion Gap 8 BUN 14 Creatinine 0.59 L Estim Creat Clear Calc 112 Estimated GFR > 60 Glucose 218 H POC Capillary Glucose 241 H 293 H Calcium 8.2 L Magnesium 1.9 Total Bilirubin 0.9 AST 17 ALT 8 Alkaline Phosphatase 54 Total Protein 6.0 L Albumin 2.8 L
[2024-04-04] MEDS: MIDODRINE HCL 10 MG TABLET PO ×2 (12:06→17:27)
--- NOTE | 2024-04-04 14:17 | P.PNIM_ITS ---
Progress Note: A&P Assessment and Plan (1) Closed subcapital fracture of right femur: Code(s): S72.011A - Unspecified intracapsular fracture of right femur, initial encounter for closed fracture Status: Acute Assessment and Plan: status post for had ORIF on 04/01/2024 * Ortho managing. * plan for OR today after potassium replaced * PRN pain meds * PRN anti-emetics * Robaxin added 04/03/24: * Pt is status post repair on . * Stable for discharge today to [facility]. * Continue PRN pain meds. 04/04/24: * Pt did not discharge to [facility] due to his Orthostasis. * PRN pain meds scaled back as pt was rating pain at an 8/10, but requiring us to wake him when we went in room as well as the fact that he was hypotensive. (2) Orthostatic hypotension: Code(s): I95.1 - Orthostatic hypotension Status: Acute Assessment and Plan: * Orthostatic Vitals are ordered Qshift. This AM he was 138/91 lying and sitting was 97/82. He attempted to stand and became too dizzy. * Pt receiving IVF at 100 ml/hr * Midodrine increased from 5 mg TID to 10 mg TID. * Etiology more NPH? Neuro consulted for further ideas of management. * Abdominal binder and TEDS ordered. * Encourage oral intake. * Lisinopril has been discontinued at this time. (3) Hyponatremia: Code(s): E87.1 - Hypo-osmolality and hyponatremia Status: Acute Assessment and Plan: * Sodium level is currently 129. This is despite the boluses that he received yesterday and despite the current IVF he is receiving. * Urine osmolality and serum osmolality are ordered * Pt receiving IVF of NS at 100 ml/hr. * Continue to trend daily. (4) Nausea and vomiting: Code(s): R11.2 - Nausea with vomiting, unspecified Status: Acute Assessment and Plan: related to pain medication Zofran, Reglan, scope patch 04/03/24: * Continue PRN pain and anti-emetic meds. 04/04/24: * No further emesis. * Pain is currently well controlled. (5) Syncope: Qualifiers: Encounter type: sequela Code(s): R55 - Syncope and collapse Status: Acute Assessment and Plan: * Carotid dopplers showing less than 50% stenosis in both LETICIA and LICA. * ECHO: 65-70% * Telemetry continued. * Bedrest * Fall precautions 04/03/24: * Uncertain of etiology of syncope, but suspect an orthostatic component. * Pt has been well hydrated and is stable. * Pt indicates syncope has occurred before in very similar pattern. 04/04/24: * See Problem #1 * Appreciate neuro input as pt has had multiple episodes of this over the past couple of years and it is not improving. (6) Insulin dependent diabetes mellitus: Status: Acute Assessment and Plan: * continue current glycemic management. * Diabetic diet 04/03/24: * Continue current regimen. * A1C is 10.3. * Needs tighter glucose control to allow for optimal healing from his surgery. 04/04/24: * Fasting this AM is 293. * Increasing lispro insulin to high dose protocol * Initiate Lantus 10 units Bedtime. * Diet changed to Diabetic. (7) Hypertension: Code(s): I10 - Essential (primary) hypertension Status: Chronic Assessment and Plan: * Stable BP. * Continue home medication regimen * Monitor 04/03/24: * Continue meds 04/04/24: * Lisinopril was discontinued. * See #2. (8) Hypothyroidism: Code(s): E03.9 - Hypothyroidism, unspecified Status: Chronic Assessment and Plan: * Continue home medication regimen 04/03/24: * Continue meds 04/04/24: * Continue meds (9) Hyperlipidemia: Code(s): E78.5 - Hyperlipidemia, unspecified Status: Acute Assessment and Plan: * Continue home medication regimen 04/03/24: * Continue meds * Continue diabetic diet 04/04/24: * Pt compliance with orders is encouraged. (10) Total bilirubin, elevated: Code(s): R17 - Unspecified jaundice Status: Resolved Assessment and Plan: resolved patient is not jaundiced, repeat CMP total bilirubin within normal Plan No longer able to go to [facility]. Pt is accepted at [facility] when medically stable. Time Spent With Patient Time with patient: 15 - 25 minutes Subjective Date/time seen: 04/04/24 1015 Interval history: This pt was examined this AM at the bedside the day after his discharge to [facility] was canceled due to him having Orthostatic Hypotension and not participating well with therapy. Last evening he was started on Midodrine 5 mg TID, was ordered TEDS, Abd binder, and received IVF bolus as well as continuous infusion and his Lisinopril was discontinued. The pt has not been compliant with therapy thus far, the checking of his orthostatic vitals and he has not wanted to eat. He reports he just wants to sleep and relax. Reportedly by his spouse he has laid in bed for 2 years because every time he gets up he gets too dizzy. This has been mentioned to his PCP but he does not know if anything was done about it. Pt himself is a very poor historian. This time at home he fell when he became dizzy and broke his hip prompting his current hospitalization. Initially accepted for [facility], they have now decided he is not appropriate and the pt is accepted at [facility], however, he continues to remain dizzy with changing positions. Consulting Neurology for further input and recommendations. NPH? Review of Systems Review of Systems: All systems reviewed & are unremarkable except as noted in HPI and below Exam Narrative: General: Nontoxic-appearing gentleman supine in bed in no acute distress. HEENT: Small abrasion on the bridge of the right side of the nose. PERRL, EOMI. Sclera anicteric. Moist mucous membranes. Neck: Supple. No midline vertebral tenderness. Respiratory: Lungs are clear to auscultation bilaterally. Cardiovascular: Regular rate and rhythm with S1-S2. Gastrointestinal: Abdomen is soft, nontender, and nondistended with positive bowel sounds. Skin: Warm and dry. Scattered excoriations on the chest. Small abrasion on the elbow. Extremities: No cyanosis, clubbing, or edema. Radial and pedal pulses intact. Musculoskeletal: right lower extremity with surgical dressing clean dry intact Neurological: Alert. Cranial nerves 2-12 are grossly intact. No gross focal deficits to casual conversation. Psychiatric: Pleasant and cooperative with normal mood and affect. Objective Data Vital Signs Vital Signs: Vital Signs - 24 hr 04/03/24 20:00 04/04/24 00:00 04/04/24 06:37 Temperature 98.1 F 97.7 F Pulse Rate 90 89 Respiratory Rate 18 18 Blood Pressure 125/68 141/75 H Pulse Oximetry 95 96 Oxygen Delivery Room Air 04/04/24 08:00 04/04/24 08:00 04/04/24 10:51 Temperature 96.4 F L Pulse Rate 89 89 Respiratory Rate 20 20 Blood Pressure 138/91 H 97/82 L Pulse Oximetry 97 97 Oxygen Delivery Room Air Intake/Output Intake/Output: Intake & Output 04/01/24 04/02/24 04/03/24 04/04/24 23:59 23:59 23:59 23:59 Intake Total 450 2145 2375 835 Output Total 300 1450 800 Balance 150 2145 925 35 Meds/Results Medications: Active Medications Generic Name Dose Route Start Last Admin Trade Name Freq PRN Reason Stop Dose Admin Acetaminophen 500 mg 04/01/24 20:12 04/03/24 13:02 Acetaminophen 500 Mg Tablet PO 500 mg Q6H PRN Administration Pain Rated 1-3 Dextrose 12.5 gm 03/30/24 14:36 Dextrose 50% 25 Gm/50 Ml Syringe IV PUSH PRN PRN Hypoglycemia Protocol Enoxaparin Sodium 30 mg 04/02/24 09:00 04/04/24 08:41 Enoxaparin 30 Mg/0.3 Ml Syringe SUB-Q 30 mg DAILY MICHAEL Administration Glucagon 1 mg 03/30/24 14:36 Glucagon For Inj 1 Mg Vial IM PRN PRN Hypoglycemia Protocol Glucose 15 gm 03/30/24 14:36 Glucose Oral Gel 15 Gm Of Glucse In 37.5 Gm Tube PO PRN PRN Hypoglycemia Protocol Hydromorphone HCl 1 mg 04/01/24 20:12 04/01/24 22:10 Hydromorphone Hcl Inj (*Crx) 1 Mg/Ml Syr IV PUSH 1 mg Q2H PRN Administration Breakthrough Pain Rated 7-10 or NPO Hydromorphone HCl 0.5 mg 04/01/24 20:12 04/02/24 13:12 Hydromorphone Hcl Inj (*Crx) 1 Mg/Ml Syr IV PUSH 0.5 mg Q2H PRN Administration Breakthrough Pain Rated 4-6 or NPO Hydroxyzine Pamoate 50 mg 04/01/24 20:12 Hydroxyzine Pamoate 25 Mg Capsule PO Q4H PRN Itching Dextrose 1,000 mls @ 100 mls/hr 03/30/24 14:36 Dextrose 5% 1,000 Ml IVPB PRN PRN Hypoglycemia Protocol Sodium Chloride 1,000 mls @ 100 mls/hr 04/03/24 11:20 04/04/24 11:54 Normal Saline Iv IV CONT 100 mls/hr .Q10H MICHAEL Administration Insulin Aspart 3 - 6 units 03/30/24 17:00 04/04/24 11:55 Insulin Aspart (*Bkc) 100 Units/Ml SUB-Q 4 units TIDWM [facility] Administration Protocol Insulin Aspart 1 - 3 units 03/30/24 21:00 04/03/24 20:40 Insulin Aspart (*Bkc) 100 Units/Ml SUB-Q 1 units HS [facility] Administration Protocol Levothyroxine Sodium 200 mcg 03/31/24 07:45 04/04/24 05:52 Levothyroxine Sodium 100 Mcg Tablet PO 200 mcg DAILY@0630 [facility] Administration Lisinopril 20 mg 03/31/24 09:00 04/04/24 12:11 Lisinopril 20 Mg Tablet PO Not Given DAILY [facility] Methocarbamol 500 mg 04/01/24 17:00 04/04/24 12:06 Methocarbamol 500 Mg Tablet PO 500 mg QID [facility] Administration Metoclopramide HCl 5 mg 04/02/24 11:55 04/02/24 13:12 Metoclopramide Hcl Inj 10 Mg/2 Ml Vial IV PUSH 5 mg Q6HR PRN Administration secondline for nausea/vomiting Midodrine 10 mg 04/04/24 13:00 04/04/24 12:06 Midodrine Hcl 10 Mg Tablet PO 10 mg TID [facility] Administration Naloxone HCl 0.1 mg 04/01/24 20:12 Naloxone Hcl 0.4 Mg/Ml Vial IV PUSH Q2M PRN Opiate Reversal Ondansetron HCl 4 mg 04/01/24 20:12 04/02/24 17:25 Ondansetron Inj 4 Mg/2 Ml Vial IV PUSH 4 mg Q4H PRN Administration Nausea And Vomiting Oxycodone/Acetaminophen 1 tablet 04/01/24 20:12 Oxycodone/Acetaminophen (*Crx) 5-325 Mg Tablet PO Q4H PRN Pain Rated 4-6 Oxycodone/Acetaminophen 1 tab 04/01/24 20:12 04/03/24 07:21 Oxycodone/Acetaminophen (*Crx) 10-325 Mg Tablet PO 1 tab Q6H PRN Administration Pain Rated 7-10 Polyethylene Glycol 17 gm 04/02/24 09:00 04/04/24 08:53 Polyethylene Glycol 3350 17 Gm Powd.Pack PO Not Given QAM [facility] Rosuvastatin Calcium 5 mg 03/31/24 09:00 04/04/24 08:39 Rosuvastatin 5 Mg Tablet PO 5 mg DAILY MICHAEL Administration Senna/Docusate Sodium 2 tab 04/02/24 09:00 04/04/24 08:38 Senna/Docusate Sodium Tablet PO 2 tab BID MICHAEL Administration Radiology Results: ITS Impressions Hip/Pelvis X-Ray 03/30/24 12:17 IMPRESSION: Right subcapital femoral neck fracture Chest X-Ray 03/30/24 12:18 IMPRESSION: No active cardiopulmonary disease Knee X-Ray 03/30/24 13:05 IMPRESSION: No fracture or dislocation or joint effusion is detected Osteopenia Carotid Doppler Study 03/30/24 15:39 IMPRESSION: 1. Less than 50% stenosis in the right internal carotid artery. 2. Less than 50% stenosis in the left internal carotid artery. Hip X-Ray 04/01/24 19:53 IMPRESSION: Expected perioperative appearance of a right total hip arthroplasty. Labs Labs: Laboratory Results - last 24 hr 04/03/24 04/03/24 04/04/24 16:25 19:57 06:35 WBC 13.7 H RBC 4.08 L Hgb 12.3 L Hct 35.3 L MCV 86.5 MCH 30.1 MCHC 34.8 RDW 12.2 Plt Count 171 MPV 9.7 Immature Gran % (Auto) 1.5 H Neut % (Auto) 82.4 H Lymph % (Auto) 7.0 L [place] % (Auto) 7.0 Eos % (Auto) 1.6 Baso % (Auto) 0.5 Lymph # (Auto) 0.96 [place] # (Auto) 1.0 H Eos # (Auto) 0.2 Baso # (Auto) 0.1 Abs Immat Gran (auto) 0.21 H Absolute Neuts (auto) 11.3 H Absolute Nucleated RBC 0.000 Nucleated RBC % 0.0 Sodium 129 L Potassium 3.6 Chloride 94 L Carbon Dioxide 27 Anion Gap 8 BUN 14 Creatinine 0.59 L Estim Creat Clear Calc 112 Estimated GFR > 60 Glucose 218 H POC Capillary Glucose 187 H 244 H Calcium 8.2 L Magnesium 1.9 Total Bilirubin 0.9 AST 17 ALT 8 Alkaline Phosphatase 54 Total Protein 6.0 L Albumin 2.8 L 04/04/24 04/04/24 08:23 11:46 WBC RBC Hgb Hct MCV MCH MCHC RDW Plt Count MPV Immature Gran % (Auto) Neut % (Auto) Lymph % (Auto) [place] % (Auto) Eos % (Auto) Baso % (Auto) Lymph # (Auto) [place] # (Auto) Eos # (Auto) Baso # (Auto) Abs Immat Gran (auto) Absolute Neuts (auto) Absolute Nucleated RBC Nucleated RBC % Sodium Potassium Chloride Carbon Dioxide Anion Gap BUN Creatinine Estim Creat Clear Calc Estimated GFR Glucose POC Capillary Glucose 241 H 293 H Calcium Magnesium Total Bilirubin AST ALT Alkaline Phosphatase Total Protein Albumin Quality VTE Prophylaxis VTE prophylaxis: pharmacologic ordered
[2024-04-04] MEDS: oxyCODONE/ACETAMINOPHEN (*CRX) 5-325 MG TABLET 1 TABLET PO (15:21)
[2024-04-04 15:43] VITALS: BP 132/93
[2024-04-04 16:59] LABS: Glucose Point of Care 279 mg/dl (65-105)
[2024-04-04] MEDS: INSULIN GLARGINE (*BKC) 100 UNITS/ML 10 UNITS SUB-Q (20:17)
[2024-04-04 21:52] LABS: Glucose Point of Care 217 mg/dl (65-105)
[2024-04-05] VITALS (7 sets, daily range): BP systolic 113–162; BP diastolic 57–82; PULSE 80–115; RESP 14–16; TEMP 36.2–36.9; O2SAT 94–99
[2024-04-05] MEDS: SODIUM CHLORIDE 0.9% IV 1,000 ML 100 ML IV CONT (05:33)
[2024-04-05] MEDS: LEVOTHYROXINE SODIUM 100 MCG TABLET 200 MCG PO (05:34)
--- NOTE | 2024-04-05 05:48 | PC.NURSE ---
Pt has been approached numerous times this shift, to get orthostatic blood pressures on him. Pt has refused, stating, I am not doing it, it doesn't matter anyway . Tried to educate pt on why they are important, and how it helps to dictate further care. Pt stated, I might do them later today, depends on how I feel .
[2024-04-05 07:38] LABS: Basophils Absolute Auto 0.1 K/mm3 (0.0-0.1); Basophils Percent Auto 0.5 % (0.2-1.2); Eosinophils Absolute Auto 0.1 K/mm3 (0-0.3); Eosinophils Percent Auto 0.7 % (0-4.4); Hematocrit 35.6 % (42.0-52.0); Hemoglobin 12.6 g/dL (14.0-18.0); Immature Granulocyte Absolute 0.27 K/mm3 (0.00-0.031); Immature Granulocyte Percent A 1.9 % (0-0.5); Lymphocytes Absolute Auto 0.83 K/mm3 (0.9-3.2); Mean Corpuscular HGB Conc 35.4 g/dl (32-36); Mean Corpuscular Volume 84.8 fl (80-100); Mean Platelet Volume 9.9 fl (7.4-10.4); Monocytes Percent Auto 6.8 % (2.6-8.5); Neutrophils Absolute Auto 11.7 K/mm3 (1.3-6.7); Neutrophils Percent Auto 84.1 % (45.5-73.1); Platelet Count Result 218 k/mm3 (150-375); Red Cell Distribution Width 11.9 % (11.5-14.5); White Blood Count 13.9 K/mm3 (4.5-10.0)
[2024-04-05 07:52] LABS: Sodium 127 mmol/L (137-145)
[2024-04-05 08:01] LABS: Alanine Aminotransferase 8 U/L (6-50); Albumin Level 2.8 g/dL (3.5-5.1); Alkaline Phosphatase 56 U/L (38-126); Anion Gap 8 mmol/L (4-12); Aspartate Amino Transferase 14 U/L (17-59); Bilirubin,Total 0.8 mg/dL (0.2-1.3); Blood Urea Nitrogen 10 mg/dL (9-20); Calcium 7.9 mg/dL (8.4-10.2); Carbon Dioxide 24 mmol/L (22-30); Chloride 95 mmol/L (98-107); Estimated CRCL calculation 142 ml/min; Estimated Glomerular Filt Rate > 60; Glucose 228 mg/dL (65-110); Magnesium 1.8 mg/dL (1.6-2.3); Potassium 2.7 mmol/L (3.4-5.0)
[2024-04-05 08:01] LABS: Glucose Point of Care 250 mg/dl (65-105)
--- NOTE | 2024-04-05 08:07 | P.PNIM_ITS ---
Progress Note: A&P Assessment and Plan (1) Closed subcapital fracture of right femur: Code(s): S72.011A - Unspecified intracapsular fracture of right femur, initial encounter for closed fracture Status: Acute Assessment and Plan: status post ORIF Right hip 04/01/[address] Johns * Ortho following, appreciate reccomendations * Pain control: Schedule tylenol QID, Toradol 15 q8 x2 days, gabapentin 300hs. Continue robaxin. Reduce oxy to 2.5-5mg prn for activity and at night for sleep only * Aggressive bowel regimen with nausea/vomiting, no recent BM * PRN anti-emetics: Scheduled zofrn TID before meals, added scopalamine patch with was helpful previously * Planning discharge to SNF. Did not discharge to [facility] due to orthostasis (2) Orthostatic hypotension: Code(s): I95.1 - Orthostatic hypotension Status: Acute Assessment and Plan: Suspect autonomic 2/2 uncontrolled diabetes and related to deconditioning. * Orthostatic Vitals are ordered Qshift. This AM he was 138/91 lying and sitting was 97/82. He attempted to stand and became too dizzy. * Pt receiving IVF at 100 ml/hr * Midodrine increased from 5 mg TID to 10 mg TID. * Abdominal binder and TEDS ordered. * Encourage oral intake. * Lisinopril 5mg hs (3) Hyponatremia: Code(s): E87.1 - Hypo-osmolality and hyponatremia Status: Acute Assessment and Plan: Net positive 375ml * Sodium level 129>127. This is despite the boluses that he received yesterday and despite the current IVF he is receiving. * Start sodium chloride tabs 500 BID * Urine osmolality and serum osmolality are ordered * Pt receiving IVF of NS at 100 ml/hr. NS@100>50/hr * Continue to trend daily. * Strict I&O (4) Nausea and vomiting: Code(s): R11.2 - Nausea with vomiting, unspecified Status: Acute Assessment and Plan: Nausea and emesis x1 today Likely 2/2 constipation, opiates, and orthostatic hypotension * Zofran TID before meals, Reglan prn, scopalamine patch since previously reported to be helpful * Aggressive bowel regimen since no recent BM. Mineral oil enema x1, tap water tonight if no results. Bisacodyl suppository BID overnight. * Schedule miralax BID (5) Syncope: Qualifiers: Encounter type: sequela Code(s): R55 - Syncope and collapse Status: Acute Assessment and Plan: Uncertain of etiology of syncope, but likely orthostatic component. Random cortisol elevated, no adrenal insufficiency * Carotid dopplers showing less than 50% stenosis in both [place] and LICA. * ECHO: 65-70% * Telemetry continued. * PT/OT. Up with assistance * Fall precautions * Neurology consulted, appreciate recommendations (6) Insulin dependent diabetes mellitus: Status: Acute Assessment and Plan: Home meds: NPH 88units BID, Regular (U-500) 90 units AM, 60 units before dinner * Diabetic diet * A1C is 10.3. * Needs tighter glucose control to allow for optimal healing from his surgery. * Add lispro 6 TID with meals when eating, High dose SSI * Continue lantus 10 for now but will likely need additional insulin (7) Hypertension: Code(s): I10 - Essential (primary) hypertension Status: Chronic Assessment and Plan: Home meds: Lisinopril 20mg daily Blood pressure intermittently above goal, 97/82-150/82 * Follow orthostatic vitals * Lisinopril not given with hypotension, change to 5mg hs & titrate * Add hydralazine for SBP >180 10 QID prn * Added midodrine for orthostatic hypotension, only when out of bed (8) Hypothyroidism: Code(s): E03.9 - Hypothyroidism, unspecified Status: Chronic Assessment and Plan: Home med: synthroid 200mcg daily * Continue home medication regimen (9) Hyperlipidemia: Code(s): E78.5 - Hyperlipidemia, unspecified Status: Acute Assessment and Plan: Home med: Rosuvastatin 5mg daily * Continue home medication regimen * Treatment of diabetes as noted (10) Total bilirubin, elevated: Code(s): R17 - Unspecified jaundice Status: Resolved Assessment and Plan: Resolved patient is not jaundiced, repeat CMP total bilirubin within normal (11) Low motivation: Code(s): R46.89 - Other symptoms and signs involving appearance and behavior Status: Acute Assessment and Plan: Likely related to depression. No SI/HI. Not sleeping at night --Start melatonin hs --Likely needs to start medication for depression, consider starting inpatient tomorrow Plan No longer able to go to [facility]. Pt is accepted at [facility] when medically stable. Time Spent With Patient Time: 59 minutes Subjective Date/time seen: 04/05/24 08:07 Interval history: Nauseated, not eating this morning. Vomited this afternoon. Reports no BM in over a week. Discussed importance of him getting up and working with therapy. Limited by pain, nausea, and dizziness. Also reports low motivation Review of Systems Review of Systems: 12 systems were reviewed and are negativ e except for as per HPI. All systems reviewed & are unremarkable except as noted in HPI and below Exam Narrative: General: Nontoxic-appearing gentleman supine in bed in no acute distress. HEENT: Small abrasion on the bridge of the right side of the nose. PERRL, EOMI. Sclera anicteric. Moist mucous membranes. Neck: Supple. No midline vertebral tenderness. Respiratory: Lungs are clear to auscultation bilaterally. Cardiovascular: Regular rate and rhythm with S1-S2. Gastrointestinal: Abdomen is soft, nontender, and nondistended with positive bowel sounds. Skin: Warm and dry. Scattered excoriations on the chest. Small abrasion on the elbow. Right hip dressing dry and intact Extremities: No cyanosis, clubbing, or edema. Radial and pedal pulses intact. Musculoskeletal: right lower extremity with surgical dressing clean dry intact Neurological: Alert. Cranial nerves 2-12 are grossly intact. No gross focal deficits to casual conversation. Psychiatric: Pleasant and cooperative with normal mood and affect. Objective Data Vital Signs Vital Signs: Vital Signs - 24 hr 04/04/24 10:51 04/04/24 11:35 04/04/24 15:43 Temperature 96.9 F L Pulse Rate 98 Respiratory Rate 20 Blood Pressure 97/82 L 134/72 132/93 H Pulse Oximetry 97 Oxygen Delivery 04/04/24 20:00 04/05/24 04:00 Temperature 97.4 F L Pulse Rate 80 Respiratory Rate 14 Blood Pressure 150/82 H Pulse Oximetry 96 Oxygen Delivery Room Air Intake/Output Intake/Output: Intake & Output 04/02/24 04/03/24 04/04/24 04/05/24 23:59 23:59 23:59 23:59 Intake Total 2145 2375 2135 1275 Output Total 1450 800 900 Balance 2145 925 1335 375 Meds/Results Medications: Active Medications Generic Name Dose Route Start Last Admin Trade Name Freq PRN Reason Stop Dose Admin Acetaminophen 500 mg 04/01/24 20:12 04/03/24 13:02 Acetaminophen 500 Mg Tablet PO 500 mg Q6H PRN Administration Pain Rated 1-3 Dextrose 12.5 gm 03/30/24 14:36 Dextrose 50% 25 Gm/50 Ml Syringe IV PUSH PRN PRN Hypoglycemia Protocol Enoxaparin Sodium 30 mg 04/02/24 09:00 04/04/24 08:41 Enoxaparin 30 Mg/0.3 Ml Syringe SUB-Q 30 mg DAILY MICHAEL Administration Glucagon 1 mg 03/30/24 14:36 Glucagon For Inj 1 Mg Vial IM PRN PRN Hypoglycemia Protocol Glucose 15 gm 03/30/24 14:36 Glucose Oral Gel 15 Gm Of Glucse In 37.5 Gm Tube PO PRN PRN Hypoglycemia Protocol Hydromorphone HCl 1 mg 04/01/24 20:12 04/01/24 22:10 Hydromorphone Hcl Inj (*Crx) 1 Mg/Ml Syr IV PUSH 1 mg Q2H PRN Administration Breakthrough Pain Rated 7-10 or NPO Hydromorphone HCl 0.5 mg 04/01/24 20:12 04/02/24 13:12 Hydromorphone Hcl Inj (*Crx) 1 Mg/Ml Syr IV PUSH 0.5 mg Q2H PRN Administration Breakthrough Pain Rated 4-6 or NPO Hydroxyzine Pamoate 50 mg 04/01/24 20:12 Hydroxyzine Pamoate 25 Mg Capsule PO Q4H PRN Itching Dextrose 1,000 mls @ 100 mls/hr 03/30/24 14:36 Dextrose 5% 1,000 Ml IVPB PRN PRN Hypoglycemia Protocol Sodium Chloride 1,000 mls @ 100 mls/hr 04/03/24 11:20 04/05/24 05:33 Normal Saline Iv IV CONT 100 mls/hr .Q10H MICHAEL Administration Potassium Chloride 100 mls @ 25 mls/hr 04/05/24 08:05 Kcl 40 Meq/Water 100 Ml IVPB 04/05/24 12:04 ONCE ONE Magnesium Sulfate 500 mls @ 50 mls/hr 04/05/24 08:10 Magnesium Sulf 20gm/[id number] IV CONT .Q10H MICHAEL Insulin Aspart 4 - 8 units 04/04/24 17:00 04/04/24 17:26 Insulin Aspart (*Bkc) 100 Units/Ml SUB-Q 5 units TIDWM MICHAEL Administration Protocol Insulin Aspart 2 - 4 units 04/04/24 21:00 04/04/24 21:36 Insulin Aspart (*Bkc) 100 Units/Ml SUB-Q 2 units HS [facility] Administration Protocol Insulin Glargine 10 units 04/04/24 21:00 04/04/24 20:17 Insulin Glargine (*Bkc) 100 Units/Ml SUB-Q 10 units HS [facility] Administration Levothyroxine Sodium 200 mcg 03/31/24 07:45 04/05/24 05:34 Levothyroxine Sodium 100 Mcg Tablet PO 200 mcg DAILY@0630 [facility] Administration Lisinopril 20 mg 03/31/24 09:00 04/04/24 12:11 Lisinopril 20 Mg Tablet PO Not Given DAILY [facility] Methocarbamol 500 mg 04/01/24 17:00 04/04/24 20:15 Methocarbamol 500 Mg Tablet PO 500 mg QID [facility] Administration Metoclopramide HCl 5 mg 04/02/24 11:55 04/02/24 13:12 Metoclopramide Hcl Inj 10 Mg/2 Ml Vial IV PUSH 5 mg Q6HR PRN Administration secondline for nausea/vomiting Midodrine 10 mg 04/04/24 13:00 04/04/24 17:27 Midodrine Hcl 10 Mg Tablet PO 10 mg TID [facility] Administration Naloxone HCl 0.1 mg 04/01/24 20:12 Naloxone Hcl 0.4 Mg/Ml Vial IV PUSH Q2M PRN Opiate Reversal Ondansetron HCl 4 mg 04/01/24 20:12 04/02/24 17:25 Ondansetron Inj 4 Mg/2 Ml Vial IV PUSH 4 mg Q4H PRN Administration Nausea And Vomiting Oxycodone/Acetaminophen 1 tablet 04/01/24 20:12 04/04/24 15:21 Oxycodone/Acetaminophen (*Crx) 5-325 Mg Tablet PO 1 tablet Q4H PRN Administration Pain Rated 4-6 Oxycodone/Acetaminophen 1 tab 04/01/24 20:12 04/03/24 07:21 Oxycodone/Acetaminophen (*Crx) 10-325 Mg Tablet PO 1 tab Q6H PRN Administration Pain Rated 7-10 Polyethylene Glycol 17 gm 04/02/24 09:00 04/04/24 08:53 Polyethylene Glycol 3350 17 Gm Powd.Pack PO Not Given QAM MICHAEL Potassium Chloride 40 meq 04/05/24 08:05 Potassium Chloride 20 Meq Er Tablet PO 04/05/24 08:06 ONCE ONE Rosuvastatin Calcium 5 mg 03/31/24 09:00 04/04/24 08:39 Rosuvastatin 5 Mg Tablet PO 5 mg DAILY MICHAEL Administration Senna/Docusate Sodium 2 tab 04/02/24 09:00 04/04/24 17:27 Senna/Docusate Sodium Tablet PO 2 tab BID MICHAEL Administration Radiology Results: ITS Impressions Hip/Pelvis X-Ray 03/30/24 12:17 IMPRESSION: Right subcapital femoral neck fracture Chest X-Ray 03/30/24 12:18 IMPRESSION: No active cardiopulmonary disease Knee X-Ray 03/30/24 13:05 IMPRESSION: No fracture or dislocation or joint effusion is detected Osteopenia Carotid Doppler Study 03/30/24 15:39 IMPRESSION: 1. Less than 50% stenosis in the right internal carotid artery. 2. Less than 50% stenosis in the left internal carotid artery. Hip X-Ray 04/01/24 19:53 IMPRESSION: Expected perioperative appearance of a right total hip arthroplasty. Labs Labs: Laboratory Results - last 24 hr 04/04/24 04/04/24 04/04/24 08:23 11:46 16:54 WBC RBC Hgb Hct MCV MCH MCHC RDW Plt Count MPV Immature Gran % (Auto) Neut % (Auto) Lymph % (Auto) [place] % (Auto) Eos % (Auto) Baso % (Auto) Lymph # (Auto) [place] # (Auto) Eos # (Auto) Baso # (Auto) Abs Immat Gran (auto) Absolute Neuts (auto) Absolute Nucleated RBC Nucleated RBC % Sodium Potassium Chloride Carbon Dioxide Anion Gap BUN Creatinine Estim Creat Clear Calc Estimated GFR Glucose POC Capillary Glucose 241 H 293 H 279 H Calcium Magnesium Total Bilirubin AST ALT Alkaline Phosphatase Total Protein Albumin 04/04/24 04/05/24 04/05/24 21:15 06:50 07:54 WBC 13.9 H RBC 4.20 L Hgb 12.6 L Hct 35.6 L MCV 84.8 MCH 30.0 MCHC 35.4 RDW 11.9 Plt Count 218 MPV 9.9 Immature Gran % (Auto) 1.9 H Neut % (Auto) 84.1 H Lymph % (Auto) 6.0 L [place] % (Auto) 6.8 Eos % (Auto) 0.7 Baso % (Auto) 0.5 Lymph # (Auto) 0.83 L [place] # (Auto) 1.0 H Eos # (Auto) 0.1 Baso # (Auto) 0.1 Abs Immat Gran (auto) 0.27 H Absolute Neuts (auto) 11.7 H Absolute Nucleated RBC 0.000 Nucleated RBC % 0.0 Sodium 127 L Potassium 2.7 L* Chloride 95 L Carbon Dioxide 24 Anion Gap 8 BUN 10 Creatinine 0.45 L Estim Creat Clear Calc 142 Estimated GFR > 60 Glucose 228 H POC Capillary Glucose 217 H 250 H Calcium 7.9 L Magnesium 1.8 Total Bilirubin 0.8 AST 14 L ALT 8 Alkaline Phosphatase 56 Total Protein 6.0 L Albumin 2.8 L Quality VTE Prophylaxis VTE prophylaxis: pharmacologic ordered Hospitalist [facility] Advance Care Plan I have confirmed that the patient's Advanced Care Plan is present, code status is documented, or surrogate decision maker is listed in patient medical record.: Yes Medication Reconciliation I have utilized all available resources to obtain, update and review the patients current medications (includes all prescriptions, OTC, herbals, cannabis, and nutritional supplements).: Yes
[2024-04-05] MEDS: ROSUVASTATIN 5 MG TABLET PO (08:25)
[2024-04-05] MEDS: ONDANSETRON INJ 4 MG/2 ML VIAL IV PUSH (08:48)
[2024-04-05] MEDS: POTASSIUM CHLORIDE 20 MEQ ER TABLET 40 MEQ PO (08:49)
[2024-04-05] MEDS: oxyCODONE/ACETAMINOPHEN (*CRX) 5-325 MG TABLET 1 TABLET PO (08:49)
[2024-04-05] MEDS: SENNA/DOCUSATE SODIUM TABLET 2 TAB PO ×2 (08:49→16:59)
[2024-04-05] MEDS: polyethylene glycoL 3350 17 GM POWD.PACK PO ×2 (08:49→17:01)
[2024-04-05] MEDS: MIDODRINE HCL 10 MG TABLET PO (08:49)
[2024-04-05] MEDS: methocarbamoL 500 MG TABLET PO ×3 (08:50→20:28)
[2024-04-05] MEDS: INSULIN ASPART (*BKC) 100 UNITS/ML SUB-Q ×3 (08:50→20:33)
[2024-04-05] MEDS: ENOXAPARIN 30 MG/0.3 ML SYRINGE SUB-Q (08:50)
--- NOTE | 2024-04-05 09:55 | PCPTNOTE ---
1st attempt 9:30am Pt refused treatment this morning due to Nausea. Discussed with pt 2nd attempt will be made a little later after receiving medication for Nausea.
[2024-04-05 11:38] LABS: Glucose Point of Care 208 mg/dl (65-105)
[2024-04-05] MEDS: POTASSIUM CHLORIDE INJ 40 MEQ in SODIUM CHLORIDE 0.9% IV 500 ML 130 MEQ IVPB ×3 (11:38→23:11)
[2024-04-05 12:24] LABS: Sodium Urine Random 114 meq/L
--- NOTE | 2024-04-05 13:22 | PCPTNOTE ---
1:15 Pt refused due to continued Nausea compliants, despite patch.
[2024-04-05] MEDS: METOCLOPRAMIDE HCL INJ 10 MG/2 ML VIAL 5 MG IV PUSH (13:27)
[2024-04-05] MEDS: SCOPOLAMINE 1 MG PATCH 1 PATCH TRANSDERM (13:27)
[2024-04-05 15:26] LABS: Anion Gap 11 mmol/L (4-12); Blood Urea Nitrogen 8 mg/dL (9-20); Calcium 7.9 mg/dL (8.4-10.2); Carbon Dioxide 25 mmol/L (22-30); Chloride 92 mmol/L (98-107); Estimated CRCL calculation 130 ml/min; Estimated Glomerular Filt Rate > 60; Glucose 207 mg/dL (65-110); Potassium 2.9 mmol/L (3.4-5.0); Sodium 128 mmol/L (137-145)
[2024-04-05 16:22] LABS: Glucose Point of Care 230 mg/dl (65-105)
[2024-04-05] MEDS: ONDANSETRON HCL ODT 4 MG TABLET PO (16:57)
[2024-04-05] MEDS: KETOROLAC 15 MG/ML VIAL (*BKC) IV PUSH ×2 (16:58→20:28)
[2024-04-05] MEDS: ACETAMINOPHEN 500 MG TABLET 1000 MG PO ×2 (16:59→20:28)
[2024-04-05] MEDS: SODIUM CHLORIDE 500 MG TABLET PO (17:05)
[2024-04-05] MEDS: GABAPENTIN 300 MG CAPSULE PO (20:28)
[2024-04-05] MEDS: lisinopriL 5 MG TABLET PO (20:28)
[2024-04-05] MEDS: MELATONIN 5 MG TABLET PO (20:28)
[2024-04-05] MEDS: INSULIN GLARGINE (*BKC) 100 UNITS/ML 10 UNITS SUB-Q (20:33)
[2024-04-05 22:54] LABS: Glucose Point of Care 245 mg/dl (65-105)
[2024-04-06] VITALS (7 sets, daily range): BP systolic 102–123; BP diastolic 53–70; PULSE 81–108; RESP 14–22; TEMP 35.9–36.6; O2SAT 92–96
[2024-04-06] MEDS: SODIUM CHLORIDE 0.9% IV 1,000 ML 100 ML IV CONT (06:16)
[2024-04-06] MEDS: LEVOTHYROXINE SODIUM 100 MCG TABLET 200 MCG PO (06:17)
[2024-04-06] MEDS: KETOROLAC 15 MG/ML VIAL (*BKC) IV PUSH ×2 (06:17→16:48)
[2024-04-06] MEDS: ONDANSETRON HCL ODT 4 MG TABLET PO ×2 (06:17→12:31)
[2024-04-06 06:50] LABS: Alanine Aminotransferase 14 U/L (6-50); Albumin Level 2.7 g/dL (3.5-5.1); Alkaline Phosphatase 55 U/L (38-126); Anion Gap 10 mmol/L (4-12); Aspartate Amino Transferase 20 U/L (17-59); Bilirubin,Total 1.3 mg/dL (0.2-1.3); Blood Urea Nitrogen 12 mg/dL (9-20); Calcium 7.4 mg/dL (8.4-10.2); Carbon Dioxide 25 mmol/L (22-30); Chloride 93 mmol/L (98-107); Estimated CRCL calculation 113 ml/min; Estimated Glomerular Filt Rate > 60; Glucose 243 mg/dL (65-110); Sodium 128 mmol/L (137-145)
[2024-04-06 06:59] LABS: Basophils Absolute Auto 0.1 K/mm3 (0.0-0.1); Basophils Percent Auto 0.5 % (0.2-1.2); Eosinophils Percent Auto 0.1 % (0-4.4); Hematocrit 37.9 % (42.0-52.0); Hemoglobin 13.4 g/dL (14.0-18.0); Immature Granulocyte Absolute 0.34 K/mm3 (0.00-0.031); Immature Granulocyte Percent A 1.6 % (0-0.5); Lymphocytes Absolute Auto 0.66 K/mm3 (0.9-3.2); Lymphocytes Percent Auto 3.1 % (18.3-44.2); Mean Corpuscular HGB Conc 35.4 g/dl (32-36); Mean Corpuscular Hemoglobin 30.6 pg (26-34); Mean Corpuscular Volume 86.5 fl (80-100); Monocytes Absolute Auto 1.2 K/mm3 (0.1-0.6); Monocytes Percent Auto 5.7 % (2.6-8.5); Neutrophils Absolute Auto 19.1 K/mm3 (1.3-6.7); Platelet Count Result 256 k/mm3 (150-375); Red Blood Count 4.38 M/mm3 (4.6-6.20); White Blood Count 21.4 K/mm3 (4.5-10.0)
[2024-04-06 07:45] LABS: Glucose Point of Care 253 mg/dl (65-105)
[2024-04-06] MEDS: ACETAMINOPHEN 500 MG TABLET 1000 MG PO ×2 (09:55→12:31)
[2024-04-06] MEDS: SENNA/DOCUSATE SODIUM TABLET 2 TAB PO (09:56)
[2024-04-06] MEDS: SODIUM CHLORIDE 500 MG TABLET PO (09:56)
[2024-04-06] MEDS: methocarbamoL 500 MG TABLET PO ×2 (09:56→12:32)
[2024-04-06] MEDS: polyethylene glycoL 3350 17 GM POWD.PACK PO (09:56)
[2024-04-06] MEDS: ROSUVASTATIN 5 MG TABLET PO (09:56)
--- NOTE | 2024-04-06 09:58 | P.PNIM_ITS ---
Progress Note: A&P Assessment and Plan (1) Syncope: Qualifiers: Encounter type: sequela Code(s): R55 - Syncope and collapse Status: Acute Assessment and Plan: Uncertain of etiology of syncope, but likely orthostatic component. Random cortisol elevated, no adrenal insufficiency * Carotid dopplers showing less than 50% stenosis in both LETICIA and LICA. * ECHO: 65-70%, mild diastolic function, showed a moderate anterior pericardial effusion without evidence of hemodynamic compromise * Telemetry continued. * PT/OT. Up with assistance * Fall precautions * Neurology consulted, appreciate recommendations (2) Closed subcapital fracture of right femur: Code(s): S72.011A - Unspecified intracapsular fracture of right femur, initial encounter for closed fracture Status: Acute Assessment and Plan: status post ORIF Right hip 04/01/[address] Johns * Ortho following, appreciate reccomendations * Pain control: Schedule tylenol QID, Toradol 15 q8 x2 days, gabapentin 300hs. Continue robaxin. Reduce oxy to 2.5-5mg prn for activity and at night for sleep only * Aggressive bowel regimen with nausea/vomiting, no recent BM * PRN anti-emetics: Scheduled zofrn TID before meals, added scopalamine patch with was helpful previously * Planning discharge to SNF. Did not discharge to [facility] due to orthostasis (3) Pericardial effusion: Code(s): I31.39 - Other pericardial effusion (noninflammatory) Status: Acute Assessment and Plan: Moderate anterior pericardial effusion on TTE 04/01. Unclear if effusion could be contributing to orthostatic symptoms. No obvious hemodynamic changes on echo. --CT CAP today, can follow effusion. Should have follow up TTE if effusion not resolved --Consider cardiology consult. Would need CTS follow up if enlarging (4) Leukocytosis: Code(s): D72.829 - Elevated white blood cell count, unspecified Status: Acute Assessment and Plan: White count elevated to 21.4. Multiple episodes of nausea/vomiting and new upper abdominal distention --KUB --CT CAP with contrast --Check UA (5) Orthostatic hypotension: Code(s): I95.1 - Orthostatic hypotension Status: Acute Assessment and Plan: Suspect autonomic 2/2 uncontrolled diabetes and related to deconditioning. * Orthostatic Vitals are ordered Qshift. This AM he was 138/91 lying and sitting was 97/82. He attempted to stand and became too dizzy. * Pt receiving IVF at 100 ml/hr * Midodrine increased from 5 mg TID to 10 mg TID. * Abdominal binder and TEDS ordered. * Encourage oral intake. * Lisinopril 5mg hs (6) Hyponatremia: Code(s): E87.1 - Hypo-osmolality and hyponatremia Status: Acute Assessment and Plan: Net positive 375ml * Sodium level 129>127<128. This is despite the boluses that he received yesterday and despite the current IVF he is receiving. * Started sodium chloride tabs 500 BID, stop since not tolerating PO * Urine osmolality and serum osmolality are ordered * Continue to titrate fluids: NS@100with 40meq Kcl until 04/08 am * Continue to trend daily, follow potassium * Strict I&O (7) Nausea and vomiting: Code(s): R11.2 - Nausea with vomiting, unspecified Status: Acute Assessment and Plan: Nausea and emesis x1 today Likely 2/2 constipation, opiates, and orthostatic hypotension * Zofran TID before meals, Reglan prn, scopalamine patch since previously reported to be helpful * Aggressive bowel regimen since no recent BM. Mineral oil enema x1, tap water tonight if no results. Bisacodyl suppository BID overnight. * Scheduled miralax BID * Added potassium to fluids until 04/08 AM (8) Insulin dependent diabetes mellitus: Status: Acute Assessment and Plan: Home meds: NPH 88units BID, Regular (U-500) 90 units AM, 60 units before dinner * Diabetic diet * A1C is 10.3. * Needs tighter glucose control to allow for optimal healing from his surgery. * Added lispro 6 TID with meals when eating, High dose SSI. [place] mealtime insulin given continued vomiting * Continue lantus 10<15hs<10 BID (9) Hypertension: Code(s): I10 - Essential (primary) hypertension Status: Chronic Assessment and Plan: Home meds: Lisinopril 20mg daily Blood pressure intermittently above goal, 97/82-150/82 * Follow orthostatic vitals * Lisinopril not given with hypotension, change to 5mg hs & titrate * Add hydralazine for SBP >180 10 QID prn * Added midodrine for orthostatic hypotension, only when out of bed (10) Hypothyroidism: Code(s): E03.9 - Hypothyroidism, unspecified Status: Chronic Assessment and Plan: Home med: synthroid 200mcg daily * Continue home medication regimen (11) Hyperlipidemia: Code(s): E78.5 - Hyperlipidemia, unspecified Status: Acute Assessment and Plan: Home med: Rosuvastatin 5mg daily * Continue statin * Treatment of diabetes as noted (12) Total bilirubin, elevated: Code(s): R17 - Unspecified jaundice Status: Resolved Assessment and Plan: Resolved patient is not jaundiced, repeat CMP total bilirubin within normal (13) Low motivation: Code(s): R46.89 - Other symptoms and signs involving appearance and behavior Status: Acute Assessment and Plan: Likely related to depression. No SI/HI. Not sleeping at night --Started melatonin hs --Likely needs to start medication for depression, consider starting inpatient. Previously started on lexapro 10mg but only took for 4 days and stopped. Could restart with PCP follow up when tolerating PO (14) Hypokalemia: Code(s): E87.6 - Hypokalemia Status: Acute Assessment and Plan: Low in the setting of nausea/vomiting and poor PO intake Potassium low 04/05 2.7 80meq<2.9 80meq and still 3 this morning --Additional 80meq today. Rechecking potassium, mag, and phos this afternoon --Also repleting magnesium 2G IV today Plan No longer able to go to [facility]. Pt is accepted at [facility] when medically stable. Time Spent With Patient Time: 58 minutes Subjective Date/time seen: 04/06/24 13:45 Interval history: WBC up to 21.4 s/p enemas with multiple BM's overnight. Having bilious vomiting this morning despite scheduled zofran. Denies abdominal pain but has upper abdominal distention Potassium still low despite repletion, very slowly improving Reports no BM in over a week. Discussed importance of him getting up and working with therapy. Limited by pain, nausea, and dizziness. Also reports low motivation, depression chronically Review of Systems Review of Systems: 12 systems were reviewed and are negativ e except for as per HPI. All systems reviewed & are unremarkable except as noted in HPI and below Exam Narrative: General: Nontoxic-appearing gentleman supine in bed in no acute distress. HEENT: Small abrasion on the bridge of the right side of the nose. PERRL, EOMI. Sclera anicteric. Moist mucous membranes. Neck: Supple. No midline vertebral tenderness. Respiratory: Lungs are clear to auscultation bilaterally. Cardiovascular: Regular rate and rhythm with S1-S2. Gastrointestinal: Abdomen is soft, nontender, and distended with positive bowel sounds. Skin: Warm and dry. Scattered excoriations on the chest. Small abrasion on the elbow. Right hip dressing dry and intact Extremities: No cyanosis, clubbing, or edema. Radial and pedal pulses intact. Musculoskeletal: right lower extremity with surgical dressing clean dry intact Neurological: Alert. Cranial nerves 2-12 are grossly intact. No gross focal deficits to casual conversation. Psychiatric: Pleasant and cooperative with normal mood and affect. Objective Data Vital Signs Vital Signs: Vital Signs - 24 hr 04/05/24 11:26 04/05/24 12:00 04/05/24 15:51 Temperature 97.7 F 98.4 F Pulse Rate 97 103 H 115 H Respiratory Rate 15 16 Blood Pressure 143/77 H 145/75 H Pulse Oximetry 99 94 Oxygen Delivery 04/05/24 16:00 04/05/24 20:00 04/05/24 20:00 Temperature 97.3 F L Pulse Rate 112 H 97 Respiratory Rate 16 Blood Pressure 113/57 L Pulse Oximetry 97 Oxygen Delivery Room Air 04/05/24 20:00 04/06/24 00:00 04/06/24 00:00 Temperature 97.0 F L Pulse Rate 102 H 96 92 Respiratory Rate 14 Blood Pressure 112/64 Pulse Oximetry 96 Oxygen Delivery 04/06/24 04:00 04/06/24 04:00 Temperature 97.8 F Pulse Rate 87 95 Respiratory Rate 14 Blood Pressure 123/65 Pulse Oximetry 96 Oxygen Delivery Intake/Output Intake/Output: Intake & Output 04/03/24 04/04/24 04/05/24 04/06/24 23:59 23:59 23:59 23:59 Intake Total 2375 2135 4331.5 325 Output Total 2968 791 6830 Balance 925 1335 2731.5 325 Meds/Results Medications: Active Medications Generic Name Dose Route Start Last Admin Trade Name Freq PRN Reason Stop Dose Admin Acetaminophen 1,000 mg 04/05/24 17:00 04/06/24 09:55 Acetaminophen 500 Mg Tablet PO 1,000 mg QID MICHAEL Administration Bisacodyl 10 mg 04/05/24 21:00 04/06/24 04:28 Bisacodyl 10 Mg Suppository RECTAL Not Given BID MICHAEL Dextrose 12.5 gm 03/30/24 14:36 Dextrose 50% 25 Gm/50 Ml Syringe IV PUSH PRN PRN Hypoglycemia Protocol Enoxaparin Sodium 30 mg 04/02/24 09:00 04/05/24 08:50 Enoxaparin 30 Mg/0.3 Ml Syringe SUB-Q 30 mg DAILY MICHAEL Administration Gabapentin 300 mg 04/05/24 21:00 04/05/24 20:28 Gabapentin 300 Mg Capsule PO 300 mg HS MICHAEL Administration Glucagon 1 mg 03/30/24 14:36 Glucagon For Inj 1 Mg Vial IM PRN PRN Hypoglycemia Protocol Glucose 15 gm 03/30/24 14:36 Glucose Oral Gel 15 Gm Of Glucse In 37.5 Gm Tube PO PRN PRN Hypoglycemia Protocol Hydralazine HCl 10 mg 04/05/24 14:01 Hydralazine 10 Mg Tablet PO QID PRN Hypertension Hydromorphone HCl 1 mg 04/01/24 20:12 04/01/24 22:10 Hydromorphone Hcl Inj (*Crx) 1 Mg/Ml Syr IV PUSH 1 mg Q2H PRN Administration Breakthrough Pain Rated 7-10 or NPO Hydromorphone HCl 0.5 mg 04/01/24 20:12 04/02/24 13:12 Hydromorphone Hcl Inj (*Crx) 1 Mg/Ml Syr IV PUSH 0.5 mg Q2H PRN Administration Breakthrough Pain Rated 4-6 or NPO Hydroxyzine Pamoate 50 mg 04/01/24 20:12 Hydroxyzine Pamoate 25 Mg Capsule PO Q4H PRN Itching Sodium Chloride 1,000 mls @ 50 mls/hr 04/03/24 11:20 04/06/24 06:16 Normal Saline Iv IV CONT 100 mls/hr .Q20H MICHAEL Administration Magnesium Sulfate 2 gm in 50 mls @ 50 mls/hr 04/06/24 08:00 Magnesium Sulf 2 Gm/Water 50ml IVPB PREMED [facility] Insulin Aspart 4 - 8 units 04/04/24 17:00 04/05/24 17:12 Insulin Aspart (*Bkc) 100 Units/Ml SUB-Q 4 units TIDWM [facility] Administration Protocol Insulin Aspart 2 - 4 units 04/04/24 21:00 04/05/24 20:33 Insulin Aspart (*Bkc) 100 Units/Ml SUB-Q 2 units HS MICHAEL Administration Protocol Insulin Aspart 6 units 04/05/24 12:00 04/05/24 17:27 Insulin Aspart (*Bkc) 100 Units/Ml 0.067 units/kg (6 units) Not Given SUB-Q TIDWM MICHAEL Insulin Glargine 10 units 04/04/24 21:00 04/05/24 20:33 Insulin Glargine (*Bkc) 100 Units/Ml SUB-Q 10 units HS [facility] Administration Ketorolac Tromethamine 15 mg 04/05/24 14:20 04/06/24 06:17 Ketorolac 15 Mg/Ml Vial (*Bkc) IV PUSH 15 mg Q8HR MICHAEL Administration Levothyroxine Sodium 200 mcg 03/31/24 07:45 04/06/24 06:17 Levothyroxine Sodium 100 Mcg Tablet PO 200 mcg DAILY@0630 MICHAEL Administration Lisinopril 5 mg 04/05/24 21:00 04/05/24 20:28 Lisinopril 5 Mg Tablet PO 5 mg HS MICHAEL Administration Melatonin 5 mg 04/05/24 21:00 04/05/24 20:28 Melatonin 5 Mg Tablet PO 5 mg HS [facility] Administration Methocarbamol 500 mg 04/01/24 17:00 04/06/24 09:56 Methocarbamol 500 Mg Tablet PO 500 mg QID MICHAEL Administration Metoclopramide HCl 5 mg 04/02/24 11:55 04/05/24 13:27 Metoclopramide Hcl Inj 10 Mg/2 Ml Vial IV PUSH 5 mg Q6HR PRN Administration secondline for nausea/vomiting Midodrine 10 mg 04/04/24 13:00 04/05/24 17:04 Midodrine Hcl 10 Mg Tablet PO Not Given TID MICHAEL Naloxone HCl 0.1 mg 04/01/24 20:12 Naloxone Hcl 0.4 Mg/Ml Vial IV PUSH Q2M PRN Opiate Reversal Ondansetron HCl 4 mg 04/01/24 20:12 04/05/24 08:48 Ondansetron Inj 4 Mg/2 Ml Vial IV PUSH 4 mg Q4H PRN Administration Nausea And Vomiting Ondansetron HCl 4 mg 04/05/24 16:30 04/06/24 06:17 Ondansetron Hcl Odt 4 Mg Tablet PO 4 mg AC MICHAEL Administration Oxycodone HCl 2.5 mg 04/05/24 14:07 Oxycodone Hcl (*Crx) 2.5 Mg Tab Ir PO Q4H PRN Pain Rated 4-6 Oxycodone HCl 5 mg 04/05/24 14:07 Oxycodone Hcl (*Crx) 5 Mg Tab Ir PO Q4H PRN Pain Rated 7-10 Polyethylene Glycol 17 gm 04/05/24 17:00 04/06/24 09:56 Polyethylene Glycol 3350 17 Gm Powd.Pack PO 17 gm BID MICHAEL Administration Rosuvastatin Calcium 5 mg 03/31/24 09:00 04/06/24 09:56 Rosuvastatin 5 Mg Tablet PO 5 mg DAILY MICHAEL Administration Scopolamine 1 patch 04/05/24 13:00 04/05/24 13:27 Scopolamine 1 Mg Patch TRANSDERM 1 patch Q72HR MICHAEL Administration Senna/Docusate Sodium 2 tab 04/02/24 09:00 04/06/24 09:56 Senna/Docusate Sodium Tablet PO 2 tab BID MICHAEL Administration Sodium Chloride 500 mg 04/05/24 09:00 04/06/24 09:56 Sodium Chloride 500 Mg Tablet PO 500 mg BID MICHAEL Administration Radiology Results: ITS Impressions Hip/Pelvis X-Ray 03/30/24 12:17 IMPRESSION: Right subcapital femoral neck fracture Chest X-Ray 03/30/24 12:18 IMPRESSION: No active cardiopulmonary disease Knee X-Ray 03/30/24 13:05 IMPRESSION: No fracture or dislocation or joint effusion is detected Osteopenia Carotid Doppler Study 03/30/24 15:39 IMPRESSION: 1. Less than 50% stenosis in the right internal carotid artery. 2. Less than 50% stenosis in the left internal carotid artery. Hip X-Ray 04/01/24 19:53 IMPRESSION: Expected perioperative appearance of a right total hip arthroplasty. Labs Labs: Laboratory Results - last 24 hr 04/05/24 04/05/24 04/05/24 11:35 12:04 14:57 WBC RBC Hgb Hct MCV MCH MCHC RDW Plt Count MPV Immature Gran % (Auto) Neut % (Auto) Lymph % (Auto) [place] % (Auto) Eos % (Auto) Baso % (Auto) Lymph # (Auto) [place] # (Auto) Eos # (Auto) Baso # (Auto) Abs Immat Gran (auto) Absolute Neuts (auto) Absolute Nucleated RBC Nucleated RBC % Sodium 128 L Potassium 2.9 L Chloride 92 L Carbon Dioxide 25 Anion Gap 11 BUN 8 L Creatinine 0.50 L Estim Creat Clear Calc 130 Estimated GFR > 60 Glucose 207 H POC Capillary Glucose 208 H Calcium 7.9 L Total Bilirubin AST ALT Alkaline Phosphatase Total Protein Albumin Ur Random Sodium 114 04/05/24 04/05/24 04/06/24 16:13 20:22 06:28 WBC 21.4 H RBC 4.38 L Hgb 13.4 L Hct 37.9 L MCV 86.5 MCH 30.6 MCHC 35.4 RDW 12.0 Plt Count 256 MPV 10.0 Immature Gran % (Auto) 1.6 H Neut % (Auto) 89.0 H Lymph % (Auto) 3.1 L [place] % (Auto) 5.7 Eos % (Auto) 0.1 Baso % (Auto) 0.5 Lymph # (Auto) 0.66 L [place] # (Auto) 1.2 H Eos # (Auto) 0.0 Baso # (Auto) 0.1 Abs Immat Gran (auto) 0.34 H Absolute Neuts (auto) 19.1 H Absolute Nucleated RBC 0.000 Nucleated RBC % 0.0 Sodium 128 L Potassium 3.0 L Chloride 93 L Carbon Dioxide 25 Anion Gap 10 BUN 12 Creatinine 0.58 L Estim Creat Clear Calc 113 Estimated GFR > 60 Glucose 243 H POC Capillary Glucose 230 H 245 H Calcium 7.4 L Total Bilirubin 1.3 AST 20 ALT 14 Alkaline Phosphatase 55 Total Protein 6.0 L Albumin 2.7 L Ur Random Sodium 04/06/24 07:36 WBC RBC Hgb Hct MCV MCH MCHC RDW Plt Count MPV Immature Gran % (Auto) Neut % (Auto) Lymph % (Auto) [place] % (Auto) Eos % (Auto) Baso % (Auto) Lymph # (Auto) [place] # (Auto) Eos # (Auto) Baso # (Auto) Abs Immat Gran (auto) Absolute Neuts (auto) Absolute Nucleated RBC Nucleated RBC % Sodium Potassium Chloride Carbon Dioxide Anion Gap BUN Creatinine Estim Creat Clear Calc Estimated GFR Glucose POC Capillary Glucose 253 H Calcium Total Bilirubin AST ALT Alkaline Phosphatase Total Protein Albumin Ur Random Sodium Quality VTE Prophylaxis VTE prophylaxis: pharmacologic ordered Hospitalist MIPS Advance Care Plan I have confirmed that the patient's Advanced Care Plan is present, code status is documented, or surrogate decision maker is listed in patient medical record.: Yes Medication Reconciliation I have utilized all available resources to obtain, update and review the patients current medications (includes all prescriptions, OTC, herbals, cannabis, and nutritional supplements).: Yes
[2024-04-06] MEDS: ENOXAPARIN 30 MG/0.3 ML SYRINGE SUB-Q (09:59)
[2024-04-06] MEDS: POTASSIUM CHLORIDE INJ 40 MEQ in SODIUM CHLORIDE 0.9% IV 500 ML 130 MEQ IVPB ×2 (11:02→16:47)
[2024-04-06] MEDS: INSULIN GLARGINE (*BKC) 100 UNITS/ML 8 UNITS SUB-Q (11:03)
[2024-04-06] MEDS: INSULIN ASPART (*BKC) 100 UNITS/ML SUB-Q ×2 (11:08→12:30)
[2024-04-06 11:43] LABS: Glucose Point of Care 248 mg/dl (65-105)
[2024-04-06] MEDS: KCL 40 MEQ/D5/0.9% SOD CHL 1,000 ML 100 ML IV CONT (16:47)
[2024-04-06] MEDS: ONDANSETRON INJ 4 MG/2 ML VIAL IV PUSH (16:48)
[2024-04-06 17:00] LABS: Glucose Point of Care 217 mg/dl (65-105)
[2024-04-06 17:22] LABS: Hematocrit 36.4 % (42.0-52.0); Hemoglobin 13.1 g/dL (14.0-18.0); Mean Corpuscular Hemoglobin 30.8 pg (26-34); Mean Corpuscular Volume 85.4 fl (80-100); Mean Platelet Volume 9.4 fl (7.4-10.4); Platelet Count Result 273 k/mm3 (150-375); Red Blood Count 4.26 M/mm3 (4.6-6.20); Red Cell Distribution Width 12.3 % (11.5-14.5); White Blood Count 20.5 K/mm3 (4.5-10.0)
[2024-04-06 17:38] LABS: Band Neutrophils Percent 6 % (0-6); Lymphocytes Absolute Manual 1.02 K/mm3 (1.1-4.5); Monocytes Absolute Manual 1.02 K/mm3 (0.1-0.90); Monocytes Percent Manual 5 % (3-9); Neutrophils Absolute Manual 18.45 K/mm3 (1.3-6.7); Neutrophils Percent Manual 84 % (46-73); Platelet Estimate Adequate (Adequate); Total Cells Counted 100
[2024-04-06 17:39] LABS: Schistocytes None Seen
[2024-04-06 18:06] LABS: Alanine Aminotransferase 13 U/L (6-50); Albumin Level 2.6 g/dL (3.5-5.1); Alkaline Phosphatase 60 U/L (38-126); Anion Gap 6 mmol/L (4-12); Aspartate Amino Transferase 20 U/L (17-59); Bilirubin,Total 1.2 mg/dL (0.2-1.3); Blood Urea Nitrogen 16 mg/dL (9-20); Calcium 7.9 mg/dL (8.4-10.2); Carbon Dioxide 26 mmol/L (22-30); Chloride 96 mmol/L (98-107); Estimated CRCL calculation 110 ml/min; Estimated Glomerular Filt Rate > 60; Glucose 199 mg/dL (65-110); Magnesium 1.7 mg/dL (1.6-2.3); Potassium 3.6 mmol/L (3.4-5.0); Sodium 128 mmol/L (137-145)
[2024-04-06] MEDS: HYDROmorphone HCL INJ (*CRX) 1 MG/ML SYR IV PUSH (19:29)
[2024-04-06 20:51] LABS: Glucose Point of Care 228 mg/dl (65-105)
[2024-04-06 20:54] LABS: Add Urine Microscopic? YES; Appearance Urine Cloudy (Clear); Bacteria Urine None Seen /hpf; Bilirubin Urine 2+ (Negative); Blood Urine Negative (Negative); Glucose Urine UA 1+ mg/dL (Negative); Ketones Urine Trace mg/dL (Negative); Leukocyte Esterase Ur 2+ LEU/UL (Negative); Need Manual Microscopic Reviewed; Nitrate Urine Positive (Negative); Non Pathogenic Casts 0-2; Protein Urine 1+ mg/dL (Negative); Specific Grav Ur 1.041 (1.001-1.035); Squamous Epithelial Cell Urine None Seen /hpf (Few); WBC Urine 0-5 /hpf (0-3)
[2024-04-06 20:59] LABS: Color Urine Dark Brown (Yellow)
[2024-04-06] MEDS: PIPERACILLIN/TAZ 4.5G/NS 100ML 4.5 GM/100 ML BAG IVPB (21:00)
[2024-04-06] MEDS: LACTATED RINGERS 1,000 ML 999 ML IV CONT (21:27)
[2024-04-06 21:28] LABS: INR 1.5; Prothrombin Time 18.4 Seconds (11.1-14.7)
[2024-04-06 21:29] LABS: Partial Thromboplastin Time 28.2 Seconds (22.3-36.8)
[2024-04-06 21:36] LABS: Creatine Kinase 22 U/L (55-170)
[2024-04-06] MEDS: POTASSIUM PHOS,M-BASIC-D-BASIC 40 MMOL in SODIUM CHLORIDE 0.9% IV 250 ML 43.89 MMOL IVPB (22:17)
[2024-04-06] MEDS: PANTOPRAZOLE SODIUM IV 40 MG VIAL IV PUSH (22:28)
--- OUTSIDE RECORDS SUMMARY | 2024-04-06 23:56 | XMS_ITS | Referral Summary ---
Author Organization [facility] [employer] Address [address] [place] [address] Care Team Providers Care Advice Clerk Name Role Phone Chuckie Chavira MD, Sebastian Grace Primary Care Provid er Source Comments [facility],non-owned Affiliates and Associated Physician Practices is amultiple site organization consisting of ambulatory clinics and hospital sitesin [place], [place], [place] and [place]. This disclosure is being madepursuant to the Care Everywhere program and may not contain all information available regarding this patient. Last updated 17.[facility] [employer] Allergies No known active allergies Medications * Be aware that medications may not be up to date on this document. Alwaysverify current medications with the patient. Medication Sig Dispensed Refills Start Date End Date Status Insulin Aspart (NOVOLOG SC) Active aspirin (ASPIRIN) 325 MG tablet Take 325 mg by mouth A ctive insulin detemir (LEVEMIR) pen Inject 12 Units subcutaneously Active lisinopril (PRINIVIL; ZESTRIL) 20 MG tablet Take 20 mg by mouth 06/04/2015 Activ e insulin aspart (NOVOLOG FLEXPEN) pen 04/02/2015 Active levothyroxine (SYNTHROID) 125 MCG tablet Take 1 Tab by mouth once daily 30 Tab 2 01/10/2016 Active acetaminophen-code ine (TYLENOL #3) 300-30 MG tablet Take 1 tablet by mouth every 6 hours as needed pain 03/30/2020 Active doxycycline hyclate (VIBRAMYCIN) 100 MG capsule Take 100 mg by mouth 2 times daily 07/28/2020 Active ONETOUCH VERIO test strip USE TO TEST TID 01/31/2020 Active Insulin Lispro (HUMALOG KWIKPEN) 100 UNIT/ML INJECT UP TO 120 UNITS PER DAY IN DIVIDED DOSES DIRECTED ON SLIDING SCALE 02/19/2020 Active NA-K-MG sulfates (SUPREP) 17.5-3.13-1.6 GM/177ML solution Take 177 mL by mouth once daily 177 mL 08/04/2020 Active Insulin NPH Human, Isophane, (HUMULIN N KWIKPEN SC) Inject 15 Units subcutaneously 3 times daily Active Vitamin D, Cholecalciferol, 25 MCG (1000 UT) CAPS Active Active Problems Problem Noted Date Diagnosed Date Screening for colorectal cancer 08/04/2020 Benign essential HTN 01/10/2016 Bradycardia 01/10/2016 Social History Tobacco Use Types Packs/Day Years Used Date Smoking Tobacco: Never Smokeless Tobacco: Never Alcohol Use Standard Drinks/Week Comments Yes 4 (1 standard drink = 0.6 oz pur e alcohol) Sex and Gender Information Value Date Recorded Sex Assigned at Not on file Gender Identity Not on file Sexual Orientation Not on file Last Filed Vital Signs Vital Sign Reading Time Taken Comments Blood Pressure 145/78 04/07/2022 6:02 AM COMPENSATION BUSINESS PARTNER Pulse 72 04/06/2022 7:31 PM COMP[employer]ATION BUSINESS [employer]NER Temperature 36.3 ??C (97.4 ??F) 04/06/2022 7:31 PM CS T Respiratory Rate 18 04/06/2022 7:31 PM COMP[employer]ATION BUSINESS [employer]NER Oxygen Saturation 93% 04/07/2022 6:02 AM COMP[employer]ATION BUSINESS [employer]NER Inhaled Oxygen Concentration - - Weight 120.2 kg (265 lb) 09/13/2020 8:11 AM CDT Height 185.4 cm (6' 1 ) 09/13/2020 8:11 AM CDT Body Mass Index 34.96 09/13/2020 8:11 AM CDT Functional Status Functional Status Response Date of Assess ment Is person deaf or have serious hearing difficult y? No 01/09/2016 Is person blind or have serious difficulty seein g? Yes 01/09/2016 Does person have serious dif ficulty walking/climbing stairs? No 01/09/2016 Does person have difficulty dressing/bathing? No 01/09/2016 Does person have difficulty doing errands alone? No 01/09/2016 Cognitive Status Response Date of Assessm ent Does person have difficulty concentrating/remembering/making decisions? No 01/09/2016 Plan of Treatment Not on file Procedures Procedure Name Priority Date/Time Associated Diagnosis Comments ENDOSCOPY, COLON, SCREENING Routine 09/13/2020 8:05 AM CDT from Last 3 Months or Most Recently Relevant to Health Maintenance Results * ENDOSCOPY, COLON, SCREENING (09/13/2020 8:05 AM CDT) Report Endoscopy POC _ Patient Name: Luis Daniel Ford ?Procedure Date: 09/13/2020 8:05 AM ? Date of : 1955 ? Admit Type: Outpatient Age: 65 ? Gender: Male Attending MD: Tr Fofana MD _ Procedure: ? Colonoscopy Indications: ? Screening for colorectal malignant neoplasm, This is ? the patient's first colonoscopy Providers: ? Tr Fofana MD (Doctor) Referring MD: ?Sebastian Noguera MD (Referring MD) Medicines: ? Monitored Anesthesia Care Complications: ? No immediate complications. _ Procedure: ? Pre-Anesthesia Assessment: ? - Prior to the procedure, a History and Physical was ? performed, and patient medications and allergies were ? reviewed. The patient is competent. The risks and ? benefits of the procedure and the sedation options and ? risks were discussed with the patient. All questions ? were answered and informed consent was obtained. ? Patient identification and proposed procedure were ? verified by the physician, the nurse and the ? bridge operator slip in the procedure room. Mental Status ? Examination: alert and oriented. Airway Examination: ? normal oropharyngeal airway and neck mobility. ? Respiratory Examination: clear to auscultation. CV ? Examination: normal. Prophylactic Antibiotics: The ? patient does not require prophylactic antibiotics. ? Prior Anticoagulants: The patient has taken no ? previous anticoagulant or antiplatelet agents except ? for aspirin. ASA Grade Assessment: III - A patient ? with severe systemic disease. After reviewing the ? risks and benefits, the patient was deemed in ? satisfactory condition to undergo the procedure. The ? anesthesia plan was to use monitored anesthesia care ? (MAC). Immediately prior to administration of ? medications, the patient was re-assessed for adequacy ? to receive sedatives. The heart rate, respiratory ? rate, oxygen saturations, blood pressure, adequacy of ? pulmonary ventilation, and response to care were ? monitored throughout the procedure. The physical ? status of the patient was re-assessed after the ? procedure. ? After I obtained informed consent, the scope was ? passed under direct vision. Throughout the procedure, ? the patient's blood pressure, pulse, and oxygen ? saturations were monitored continuously. The ? Colonoscope was introduced through the anus and ? advanced to the cecum, identified by appendiceal ? orifice and ileocecal valve. The colonoscopy was ? performed without difficulty. The patient tolerated ? the procedure well. The quality of the bowel ? preparation was good. The ileocecal valve, appendiceal ? orifice, and rectum were photographed. ? Findings: ? The digital rectal exam was normal. Pertinent negatives include no ? palpable rectal lesions. ? A 14 mm polyp was found in the mid sigmoid colon. The polyp was ? pedunculated. The polyp was removed with a hot snare. Resection and ? retrieval were complete. To prevent bleeding post-intervention, one ? hemostatic clip was successfully placed. There was no bleeding during, ? or at the end, of the procedure. ? Multiple small and large-mouthed diverticula were found in the sigmoid ? colon and descending colon. ? The rectum, transverse colon, ascending colon, cecum, appendiceal ? orifice and ileocecal valve appeared normal. _ ? Impression: ?- One 14 mm polyp in the mid sigmoid colon, removed ? with a hot snare. Resected and retrieved. Clip was ? placed. ? - Diverticulosis in the sigmoid colon and in the ? descending colon. ? - The rectum, transverse colon, ascending colon, ? cecum, appendiceal orifice and ileocecal valve are ? normal. Recommendation: ?- Await pathology results. ? - Repeat colonoscopy in 3 years for surveillance. ? - Return to primary care physician as previously ? scheduled. ? - High fiber diet indefinitely. ? - Resume aspirin at prior dose in 5 days. ? - Patient has a contact number available for ? emergencies. The signs and symptoms of potential ? delayed complications were discussed with the patient. ? Return to normal activities tomorrow. Written ? discharge instructions were provided to the patient. ? Procedure Code(s): ? --- Professional --- ? 40251, Colonoscopy, flexible; with removal of tumor(s), polyp(s), or ? other lesion(s) by snare technique ? --- Technical --- ? 12370, Colonoscopy, flexible; with removal of tumor(s), polyp(s), or ? other lesion(s) by snare technique Diagnosis Code(s): ? --- Professional --- ? Z12.11, Encounter for screening for malignant neoplasm of colon ? K63.5, Polyp of colon ? K57.30, Diverticulosis of large intestine without perforation or abscess ? without bleeding ? --- Technical --- ? Z12.11, Encounter for screening for malignant neoplasm of colon ? K63.5, Polyp of colon ? K57.30, Diverticulosis of large intestine without perforation or abscess ? without bleeding CPT copyright 2019 [employer]. All rights reserved. The codes documented in this report are preliminary and upon relief charge nurse review may be revised to meet current compliance requirements. Dr. Tr Fofana MD Tr Fofana MD 09/13/2020 9:33:03 AM This report has been signed electronically. Number of Addenda: 0 Note Initiated On: 09/13/2020 8:05 AM [facility] 09/13/2020 8:05 AM CDT Tr Fofana MD GI PROCEDURE [facility] Performing Organization Address City/State/RUST Co de Phone Number [facility] [place] [address] from Last 3 Months or Most Recently Relevant to Health Maintenance Advance Directives * Full Code (Latest Code Status on File) Date Activated Date Inactivated Comments 01/09/2016 12:26 AM 01/10/2016 7:40 PM Care Teams Advice Clerk Relationship Specialty Start Date End Date Sebastian Noguera Jr., MD PCP - General Family Medicine 01/08/16
--- OUTSIDE RECORDS SUMMARY | 2024-04-06 23:56 | XMS_ITS | Clinical Summary ---
Author Organization [facility] [employer] Address [address] [place] [address] Care Team Providers Care Extract Wringer Name Role Phone Chuckie Chavira MD, Sebastian Grace Primary Care Provid er Source Comments [facility],non-owned Affiliates and Associated Physician Practices is amultiple site organization consisting of ambulatory clinics and hospital sitesin [place], [place], [place] and [place]. This disclosure is being madepursuant to the Care Everywhere program and may not contain all information available regarding this patient. Last updated 17.[facility] [employer] Allergies No known active allergies Medications * [...] Comments Blood Pressure 145/78 04/07/2022 6:02 AM DIRECTOR [employer]INT Pulse 72 04/06/2022 7:31 PM [employer]OR [employer] Temperature 36.3 ??C (97.4 ??F) 04/06/2022 7:31 PM CS T Respiratory Rate 18 04/06/2022 7:31 PM [employer] Oxygen Saturation 93% 04/07/2022 6:02 AM [employer] Inhaled Oxygen Concentration - - Weight 120.2 kg (265 lb) 09/13/2020 8:11 AM CDT Height 185.4 cm (6' 1 ) 09/13/2020 8:11 AM CDT Body Mass Index 34.96 09/13/2020 8:11 AM CDT Plan of Treatment Health Maintenance Due Date Last Done Comments COLOGUARD (AGES 45-75) - COLON CA SCREENING 1955 CT COLONOGRAPHY - COLON CA SCREENING 1955 FIT - COLON CA SCREENING 1955 FLEX SIG - COLON CA SCREENING 1955 LIPID TESTING 1955 MEDICARE AWV ? 12 MONTHS 1955 HEPATITIS C SCREENING 01/04/1972 DTAP/TDAP/TD VACCINES (1 - Tdap) 1973 PNEUMOCOCCAL VACCINE 50+ (1 of 1 - PCV) 01/09/2004 ZOSTER VACCINE (1 of 2) 01/09/2004 COLON MONITORING 09/14/2023 09/13/2020, 09/13/2020 Colorectal Cancer Screening 09/14/2023 COVID-19 VACCINE ( season) 2023 06/23/2021, 02/22/2021, 06/24/2020, Additional history exists INFLUENZA VACCINE (#1) 2023 02/22/2021, 2020 DEPRESSION SCREENING 03/19/2024 Respiratory Syncytial Virus (RSV) Vaccine Pt: or over 60 yrs (1 - 1-dose 75+ series) 2029 COLONOSCOPY - COLON CA SCREENING 09/13/2030 09/13/2020, 09/13/2020 HEPATITIS B VACCINE Aged Out No longe r eligible based on patient's age to complete this topic HIB VACCINE Aged Out No longer eligi ble based on patient's age to complete this topic HPV VACCINE Aged Out No longer eligi ble based on patient's age to complete this topic MENINGOCOCCAL (Group B) VACCINE Aged Out No longer eligible based on patient's age to complete this topic MENINGOCOCCAL VACCINE Aged Out No brenda sylwia eligible based on patient's age to complete this topic Procedures Procedure Name Priority Date/Time Associated Diagnosis [...] the physician, the nurse and the ? lift truck mechanic in the procedure room. Mental Status ? [...] Procedure Code(s): ? --- Professional --- ? 37327, Colonoscopy, flexible; with removal of tumor(s), polyp(s), or ? other lesion(s) by snare technique ? --- Technical --- ? 15659, Colonoscopy, flexible; with removal of tumor(s), polyp(s), [...] abscess ? without bleeding CPT copyright 2019 [employer]. All rights reserved. The codes documented in this report are preliminary and upon special trackwork blacksmith review may be revised to meet current compliance requirements. Dr. Tr Fofana MD Tr Fofana MD 09/13/2020 9:33:03 AM This report has been signed electronically. Number of Addenda: 0 Note Initiated On: 09/13/2020 8:05 AM [facility] 09/13/2020 8:05 AM CDT Tr Fofana MD GI PROCEDURE [place] [address] from Last 3 Months or Most Recently Relevant to Health Maintenance Advance Directives * Full Code (Latest Code Status on File) Date Activated Date Inactivated Comments 01/09/2016 12:26 AM 01/10/2016 7:40 PM Care Teams Extract Wringer Relationship Specialty Start Date End Date Sebastian Noguera Jr., MD PCP - General Family Medicine 01/08/16
--- OUTSIDE RECORDS SUMMARY | 2024-04-06 23:57 | XMS_ITS | Encounter Summary ---
Author Organization [facility] Address [address] [place] [address] Care Team Providers Care Marshmallow Machine Operator Name Role Phone Chuckie Chavira MD, Sebastian Grace Primary Care Provid er Encounter Details Date Type Department Care Team (Latest Contact Info) Description 07/06/2016 3:20 PM CDT - 07/06/2016 11:59 PM CDT Hospital Encounter [facility] [address] [place] [address] Dwayne Hdez, [address] [place] [phone] Discharge Disposition: Home or Self Care Social History Tobacco Use Types Packs/Day Years Used Date Smoking Tobacco: Never Alcohol Use Standard Drinks/Week Comments No 0 (1 standard drink = 0.6 oz pur e alcohol) Sex and Gender Information Value Date Recorded Sex Assigned at Not on file Gender Identity Not on file Sexual Orientation Not on file documented as of this encounter Functional Status Functional Status Response Date of [...] person have difficulty concentrating/remembering/making decisions? No 01/09/2016 documented as of this encounter Medications at Time of Discharge Medication Sig Dispensed Refills Start Date End Date aspirin (ASPIRIN) 325 MG tablet Take 325 mg by mouth insulin aspart (NOVOLOG FLEXPEN) pen 04/02/2015 Insulin Aspart (NOVOLOG SC) insulin detemir (LEVEMIR) pen Inject 12 Units subcutaneously levothyroxine (SYNTHROID) 125 MCG tablet Take 1 Tab by mouth once daily 30 Tab 2 01/10/2016 lisinopril (PRINIVIL; ZESTRIL) 20 MG tablet Take 20 mg by mouth 06/04/2015 vitamin D, ergocalciferol, (DRISDOL) 97061 UNITS capsule Take 50,000 Units by mouth every 7 days 09/13/2020 documented as of this encounter Plan of Treatment Not on file documented as of this encounter Procedures Procedure Name Priority Date/Time Associated Diagnosis Comments HEPATIC FUNCTION PANEL Routine 07/06/2016 3:29 PM CDT Dermatophytosis of nail documented in this encounter Results * HEPATIC FUNCTION PANEL (07/06/2016 3:29 PM CDT) Alkaline Phosphatase 73 38 - 126 U/L 07/06/2016 3:56 PM CDT [facility] ALT 22 13 - 61 U/L 07/06/2016 3:56 PM CDT [facility] AST 14 5 - 40 U/L 07/06/2016 3:56 PM CDT [facility] Protein Total 7.9 6.4 - 8.2 gm/dL 07/06/2016 3:56 PM CDT [facility] Albumin 3.9 3.4 - 5.0 gm/dL 07/06/2016 3:56 PM CDT [facility] Bilirubin Total 0.4 0.2 - 1.0 mg/dL 07/06/2016 3:56 PM CDT [facility] Bilirubin Direct 0.102 0 - 0.3 mg/dL 07/06/2016 3:56 PM CDT [facility] Blood BLOOD SPECIMEN / Unknown Lab Venipuncture / Unknown 07/06/2016 3:29 PM CDT 07/06/2016 3:37 PM CDT Dwayne Hdez DPM LAB - CHEMISTRY OR DERABLES [facility] [address] [place] [address] documented in this encounter Visit Diagnoses Diagnosis Dermatophytosis of nail- Primary documented in this encounter Care Teams Marshmallow Machine Operator Relationship Specialty Start Date End Date Sebastian Noguera Jr., MD PCP - General Family Medicine 01/08/16 documented as of this encounter
--- OUTSIDE RECORDS SUMMARY | 2024-04-06 23:57 | XMS_ITS | Encounter Summary ---
Author Organization [facility] Address [address] [place] [address] Care Team Providers Care Communicable Disease Specialist Name Role Phone Chuckie Chavira MD, Sebastian Grace Primary Care Provid er Reason for Visit * Auth/Cert Specialty Diagnoses / Procedures Referred By Contac t Referred To Contact Procedures COLONOSCOPY SCREEN Referral ID Status Reason Start Date Expiration Date Visits Re quested Visits Authorized [id number] 1 1 Encounter Details Date Type Department Care Team (Late st Contact Info) Description 09/13/2020 9:15 AM CDT - 09/13/2020 9:45 AM CDT Surgery [facility]ly [facility] - Endoscopy Services [address] [place] [id number] [place] [id number] [address] COLONOSCOPY SCREEN Surgery Details Date/Time Status Location OR Service Patient Class Case Class Case Type Trauma Case? 09/13/2020 9:15 AM Posted [facility] ENDO ENDO 01 Gastroenterology Surgery Day Care Elective > 5 days Panel 1 Procedure LRB Anes Op Region Wound Class Comments COLONOSCOPY SCREEN MAC Clean Conta minated Surgeon Surgeon Role Service Panel Tr Fofana MD Primary Gastroenterology 1 documented in this encounter Social History Tobacco Use Types Packs/Day Years Used Date Smoking Tobacco: Never Smokeless Tobacco: Never Alcohol Use Standard Drinks/Week Comments Yes 4 (1 standard drink = 0.6 oz pur e alcohol) Sex and Gender Information Value Date Recorded Sex Assigned at Not on file Gender Identity Not on file Sexual Orientation Not on file documented as of this encounter Last Filed Vital Signs Vital Sign Reading Time Taken Comments Blood Pressure 112/77 09/13/2020 9:45 AM CDT Pulse 75 09/13/2020 9:45 AM CDT Temperature 37 ??C (98.6 ??F) 09/13/2020 8:11 AM CDT Respiratory Rate 19 09/13/2020 9:45 AM CDT Oxygen Saturation 93% 09/13/2020 9:45 AM CDT Inhaled Oxygen Concentration - - Weight 120.2 kg (265 lb) 09/13/2020 8:11 AM CDT Height 185.4 cm (6' 1 ) 09/13/2020 8:11 AM CDT Body Mass Index 34.96 09/13/2020 8:11 AM CDT documented in this encounter Functional Status Functional Status Response [...] Sig Dispensed Refills Start Date End Date acetaminophen-codeine (TYLENOL #3) 300-30 MG tablet Take 1 tablet by mouth every 6 hours as needed pain 03/30/2020 aspirin (ASPIRIN) 325 MG tablet Take 325 mg by mouth doxycycline hyclate (VIBRAMYCIN) 100 MG capsule Take 100 mg by mouth 2 times daily 07/28/2020 insulin aspart (NOVOLOG FLEXPEN) pen 04/02/2015 Insulin Aspart (NOVOLOG SC) insulin detemir (LEVEMIR) pen Inject 12 Units subcutaneously Insulin Lispro (HUMALOG KWIKPEN) 100 UNIT/ML INJECT UP TO 120 UNITS PER DAY IN DIVIDED DOSES DIRECTED ON SLIDING SCALE 02/19/2020 Insulin NPH Human, Isophane, (HUMULIN N KWIKPEN SC) Inject 15 Units subcutaneously 3 times daily levothyroxine (SYNTHROID) 125 MCG tablet Take 1 Tab by mouth once daily 30 Tab 2 01/10/2016 lisinopril (PRINIVIL; ZESTRIL) 20 MG tablet Take 20 mg by mouth 06/04/2015 NA-K-MG sulfates (SUPREP) 17.5-3.13-1.6 GM/177ML solution Take 177 mL by mouth once daily 177 mL 08/04/2020 ONETOUCH VERIO test strip USE TO TEST TID 01/31/2020 Vitamin D, Cholecalciferol, 25 MCG (1000 UT) CAPS documented as of this encounter H&P Notes * Tr Fofana MD - 09/13/2020 8:39 AM CDT ENDOSCOPY PRE-PROCEDURE MEDICAL HISTORY & PHYSICAL Luis Daniel Ford 65 year old male BP 174/96 Pulse 92 Temp 98.6 ??F (37 ??C) (Oral) Resp 19 Ht 1.854 m (6' 1 ) Wt 120.2 kg (265 lb) SpO2 98% BMI 34.96 kg/m2 History: Past Medical History: Diagnosis Date ??? Diabetes ??? Hypertension ??? Hypothyroid 10/2012 No Known Allergies Medications Prior to Admission Medication Sig Dispense Refill ??? acetaminophen-codeine (TYLENOL #3) 300-30 MG tablet Take 1 tablet by mouth every 6 hours as needed pain (Patient not taking: Reported on 09/13/2020) ??? aspirin (ASPIRIN) 325 MG tablet Take 325 mg by mouth ??? doxycycline hyclate (VIBRAMYCIN) 100 MG capsule Take 100 mg by mouth 2 times daily ??? insulin aspart (NOVOLOG FLEXPEN) pen ??? Insulin Aspart (NOVOLOG SC) ??? insulin detemir (LEVEMIR) pen Inject 12 Units subcutaneously (Patient not taking: Reported on 09/13/2020) ??? Insulin Lispro (HUMALOG KWIKPEN) 100 UNIT/ML INJECT UP TO 120 UNITS PER DAY IN DIVIDED DOSES ASDIRECTED ON SLIDING SCALE (Patient not taking: Reported on 09/13/2020) ??? Insulin NPH Human, Isophane, (HUMULIN N KWIKPEN SC) Inject 15 Units subcutaneously 3 times daily ??? levothyroxine (SYNTHROID) 125 MCG tablet Take 1 Tab by mouth once daily 30 Tab 2 ??? lisinopril (PRINIVIL; ZESTRIL) 20 MG tablet Take 20 mg by mouth ??? NA-K-MG sulfates (SUPREP) 17.5-3.13-1.6 GM/177ML solution Take 177 mL by mouth once daily 177 mL 0 ??? ONETOUCH VERIO test strip USE TO TEST TID ??? Vitamin D, Cholecalciferol, 25 MCG (1000 UT) CAPS Current Facility-Administered Medications Medication Dose Route Frequency Provider Last Rate Last Admin ??? 0.9% NaCl infusion Intravenous Continuous Tr Fofana MD ??? 0.9% NaCl injection 3 mL 3 mL Intracatheter pre-Procedure multiple Tr Fofana MD Physicial Exam: Physical exam is normal ASA Evaluation and Anesthesia Plan: Anesthesia administered per Anesthesia Department Indication(s) for Procedure: Colon Screen - low risk Procedure Planned: Colonoscopy Tr Fofana MD documented in this encounter Plan of Treatment Not on file documented as of this encounter Procedures Procedure Name Priority Date/Time Associated Diagnosis Comments PATHOLOGY TISSUE EXAM (STL) Routine 09/13/2020 9:29 AM CDT Diverticulosis Polyp of sigmoid colon, unspecified type COLONOSCOPY SCREEN 09/13/2020 9: 15 AM CDT GLUCOSE - POINT OF CARE Routine 09/13/2020 8:23 AM CDT ENDOSCOPY, COLON, SCREENING Routine 09/13/2020 8:05 AM CDT documented in this encounter Results * PATHOLOGY TISSUE EXAM (STL) (09/13/2020 9:29 AM CDT) Case Report Surgical Pathology Report ? Case: [id number] ? Authorizing Provider: ??Tr Fofana MD ? Collected: ? 09/13/2020 09:29 AM ? Ordering Location: ? [facility] ?Received: ?09/13/2020 10:45 AM ? Pathologist: ? Ailyn Holland MD ? Specimen: ?Polyp Sigmoid, polyp 1; hot snare removal; clipped ? 09/14/2020 3:44 PM CDT [facility] Final Diagnosis Sigmoid polyp, biopsy: -- Tubular adenoma 09/14/2020 3:44 PM CDT [facility] Clinical History Screening colonoscopy. A 14 mm polyp was found in the mid sigmoid colon. 09/14/2020 3:44 PM CDT [facility] Gross Description Received in formalin labeled with patient's name and the sigmoid polyp is a fragment of sanderson tissue measuring a by 7 x 3 mm. The specimen is inked and trisected and submitted entirely in cassette A1. 09/14/2020 3:44 PM CDT [facility] Microscopic Description Sections of the sigmoid polyp reveal a tubular adenoma without high-grade dysplasia. 09/14/2020 3:44 PM CDT [facility] Disclaimer All histochemical and/or immunohistochemical results are interpreted with controls that demonstrate appropriate staining reactions before reporting results. Note on use of immunocytochemistry reagents: This test was developed and its performance characteristic determined by [facility], Department of Laboratory Medicine. It has not been cleared or approved by the U.S. Food and Drug Administration (FDA). The FDA has determined that such clearance or approval is not necessary. The test is used for clinical purpose. It should not be regarded as investigational or for research. This laboratory is certified to perform high complexity testing. The performance characteristics of the IHC/JARED assays have been validated on formalin-fixed paraffin embedded tissues only. The assays have not been validated on decalcified tissues. Results should be interpreted with caution. 09/14/2020 3:44 PM CDT [facility] Embedded Images 09/14/2020 3:44 PM CDT [facility] Pathology/Cytolo gy POLYP OF SIGMOID COLON / Unknown 09/13/2020 9:29 AM CDT 09/13/2020 10:45 AM CDT Tr Fofana MD LAB - PATHOLOGY/CYT OLOGY ORDERABLES Performing Organization Address City/[facility]/ZIP Co de Phone Number [facility] [id number] [place] [address] [phone] * (ABNORMAL) GLUCOSE - POINT OF CARE (09/13/2020 8:23 AM CDT) Glucose WB/POC 269(H) 70 - 106 mg/dL 09/13/2020 8:24 AM CDT [facility] Specimen Type Venous 09/13/2020 8:24 AM CDT [facility] Blood BLOOD SPECIMEN / Unknown 09/13/2020 8:23 AM CDT 09/13/2020 8:24 AM CDT Tr Fofana MD LAB - POINT OF CARE ORDERABLES Performing Organization Address City/[facility] Co de Phone Number [facility] [id number] [place] [phone] * ENDOSCOPY, COLON, SCREENING (09/13/2020 8:05 AM [...] ? Tr Fofana MD (Doctor) Referring MD: ?Sebastina Noguera MD (Referring MD) Medicines: ? Monitored [...] the physician, the nurse and the ? jewelry mechanic in the procedure room. Mental Status [...] Procedure Code(s): ? --- Professional --- ? 81271, Colonoscopy, flexible; with removal of tumor(s), polyp(s), or ? other lesion(s) by snare technique ? --- Technical --- ? 33776, Colonoscopy, flexible; with removal of tumor(s), polyp(s), [...] abscess ? without bleeding CPT copyright 2019 [employer]. All rights reserved. The codes documented in this report are preliminary and upon regulator pin inserter review may be revised to meet current compliance requirements. Dr. Tr Fofana MD Tr Fofana MD 09/13/2020 9:33:03 AM This report has been signed electronically. Number of Addenda: 0 Note Initiated On: 09/13/2020 8:05 AM [facility] 09/13/2020 8:05 AM CDT Tr Fofana MD GI PROCEDURE ORDERA BLES [facility] [place] [id number] documented in this encounter Visit Diagnoses Not on filedocumented in this encounter Administered Medications Inactive Administered Medications - up to 3 most recent administrations Medication Order MAR Action Action Date Dose Rate Site 0.9% NaCl infusion at 20 mL/hr, Intravenous, CONTINUOUS, Starting on Sun09/13/20 at 0830, Until Sun09/13/20 at 1108, Pre-procedure (GI) $ New Bag/Syringe 09/13/2020 8:46 AM CDT 20 mL/h r 0.9% NaCl injection 3 mL 3 mL, Intracatheter, PRE-PROCEDURE MULTIPLE, Starting on Sun09/13/20 at 0757, Until Sun09/13/20 at 1108, For Saline Lock flushes if one is inserted for Bronchoscopy/Endoscopy procedure., Pre-procedure (GI) documented in this encounter Active and Recently Administered Medications Times are shown in CDT. Scheduled Medication Order 09/11/2020 09/12/2020 09/13/2020 0.9% NaCl injection 3 mL 3 mL, Intracatheter, PRE-PROCEDURE MULTIPLE, Starting on Sun09/13/20 at 0757, Until Sun09/13/20 at 1108, For Saline Lock flushes if one is inserted for Bronchoscopy/Endoscopy procedure., Pre-procedure (GI) Continuous Medication Order 09/11/2020 09/12/2020 09/13/2020 0.9% NaCl infusion at 20 mL/hr, Intravenous, CONTINUOUS, Starting on Sun09/13/20 at 0830, Until Sun09/13/20 at 1108, Pre-procedure (GI) 0846 ($ New Bag/Syri nge - Provider: Brooklyn Valdes RN) documented in this encounter Care Teams Communicable Disease Specialist Relationship Specialty Start Date End Date Sebastian Noguera Jr., MD PCP - General Family Medicine 01/08/16 documented as of this encounter
--- OUTSIDE RECORDS SUMMARY | 2024-04-06 23:57 | XMS_ITS | Encounter Summary ---
Author Organization [facility] Address [address] [place] [address] Care Team Providers Care Supervisor Sign Shop Name Role Phone Chuckie Chavira MD, Sebastian Grace Primary Care Provid er Reason for Visit * Reason Onset Date Comments Scheduling 01/26/2016 Encounter Details Date Type Department Care Team (Late st Contact Info) Description 01/26/2016 Telephone [facility] [address] [place] [address] Tu Main MD [address] [facility] [address] [place] [address] Scheduling Social History Tobacco Use Types Packs/Day Years [...] No 01/09/2016 documented as of this encounter Miscellaneous Notes * Telephone Encounter - Radha Claribel J - 02/03/2016 11:01 AM CST Left 3rd message E EXTENSION FIELD SPECIALIST * Telephone Encounter - Zamzam Garciabaylee Conteh - 02/01/2016 2:11 PM CST Left 2nd message E EXTENSION FIELD SPECIALIST * Telephone Encounter - RadhaClaribel - 01/26/2016 2:07 PM CST Per Yesenia, pt needs an exercise nuclear stress test. DX: Near syncope,aytpical CP, bradycardia. LMRfor pt to call us to schedule E EXTENSION FIELD SPECIALIST documented in this encounter Plan of Treatment Not on file documented as of this encounter Visit Diagnoses Not on filedocumented in this encounter Care Teams Supervisor Sign Shop Relationship Specialty Start Date End Date Sebastian Noguera Jr., MD PCP - General Family Medicine 01/08/16 documented as of this encounter
--- OUTSIDE RECORDS SUMMARY | 2024-04-06 23:57 | XMS_ITS | Encounter Summary ---
Author Organization [facility] Address [address] [place] [address] Care Team Providers Care Highway Engineering Teacher Name Role Phone Chuckie Chavira MD, Sebastian Grace Primary Care Provid er Reason for Visit * Reason Comments Screening Colonoscopy Encounter Details Date Type Department Care Team (Late st Contact Info) Description 08/04/2020 1:00 PM CDT Office Visit [facility] [facility] [id number] [place] [address], [address] [address] [place] [id number] [place] [phone] Screening for colorectal cancer (Primary Dx) Social History Tobacco Use Types Packs/Day Years [...] Sign Reading Time Taken Comments Blood Pressure 160/86 08/04/2020 1:07 PM CDT Pulse 74 08/04/2020 1:07 PM CDT Temperature - - Respiratory Rate - - Oxygen Saturation 98% 08/04/2020 1:07 PM CDT Inhaled Oxygen Concentration - - Weight 127 kg (280 lb) 08/04/2020 1:07 PM CDT Height - - Body Mass Index 33.2 2016 11:51 PM CDT documented in this encounter Functional Status [...] No 01/09/2016 documented as of this encounter Patient Instructions * Patient Instructions* Princess Quiros RN - 08/04/2020 1:23 PM CDT MAI MOYA M.D. [address] OFFICE: [phone] [place], [place] [address] EXCHANGE: [phone] COLONOSCOPY ?? NOTIFY OUR OFFICE IF YOU ARE TAKING A BLOOD THINNER (ie. COUMADIN,PLAVIX,ASPIRIN) OR MEDICATIONSTHAT CONTAIN ASPIRIN OR IRON. STOP Aspirin ON September 03 DAY BEFORE PROCEDURE September 07 ?? Begin a CLEAR LIQUID DIET when you wake up the day before the procedure avoiding RED colored liquids. A clear liquid diet includes: water,fruit juices without pulp, clear broth or bouillon, coffee or tea (without milk or non dairy creamer), Gatorade, carbonated and non-carbonated soft drinks, Serge-Aid or flavored drinks, plain jello (without added fruits of toppings), popsicles, and hard candy. ?? NO SOLID FOODS should be eaten while on the CLEAR LIQUID DIET. STEP 1: 10 am Take 4 bisacodyl 5mg tablets with water. ( these are to be purchased over the counter) . STEP 2: Noon Drink first half of bowel prep, mix 1 bottle of prep with water in the provided cup and drink within 1 hour, followed by two 8 ounce glasses of fluid over the next hour. STEP 3: 8 pm Mix second bottle of prep with water in the provided cup and drink within 1 hour, followed by two 8 ounce glasses of fluid over the next 2 hours, stools should be clear water without particles of stool. DAY OF PROCEDURE September 08 > You may have nothing by mouth after midnight. You may take your routine medications (except blood thinners) with a Sip of water. >[facility] to [facility] Building 2 nd Floor Surgery Waiting room at 630 am. >Your procedure is scheduled for 730 am. >You will be given medication for this procedure. YOU MUST HAVE A PARADICHLOROBENZENE TENDER PRESENT TO TAKE YOU HOME. >It is ultimately your responsibility to verify insurance coverage and obtain Referral if needed. IF YOU HAVE QUESTIONS PLEASE CALL THE OFFICE AT [phone]. documented in this encounter Progress Notes * Tr Fofana MD - 08/04/2020 1:21 PM CDT Office Consult Note DEMOGRAPHICS: Patient: Luis Daniel Ford : 1955 Referring Physician: Sebastian Noguera Jr., MD Reason for consultation: Luis Daniel Ford is a most pleasant 65 year old male with history of diabetes and hypertension whom Venkat asked to consult forColorectal cancer screening. Denies nausea vomiting abdominal pain constipation or diarrhea. He denies hematochezia reflux or dysphagia. He has not had a prior colonoscopy. PAST HISTORY: Past Medical History: Diagnosis Date ??? Diabetes ??? Hypertension No past surgical history on file. Social History Socioeconomic History ??? Marital status: Spouse name: Not on file ??? Number of children: Not on file ??? Years of education: Not on file ??? Highest education level: Not on file Occupational History ??? Not on file Tobacco Use ??? Smoking status: Never Smoker Substance and Sexual Activity ??? Alcohol use: No ??? Drug use: No ??? Sexual activity: Not on file Other Topics Concern ??? Special Diet Not Asked Social History Narrative ??? Not on file Social Determinants of Health Financial Resource Strain: ??? Difficulty of Paying Living Expenses: Food Insecurity: ??? Worried About Running Out of Food in the Last Year: ??? Ran Out of Food in the Last Year: Transportation Needs: ??? Lack of Transportation (Medical): ??? Lack of Transportation (Non-Medical): Physical Activity: ??? Days of Exercise per Week: ??? Minutes of Exercise per Session: Stress: ??? Feeling of Stress : Social Connections: ??? Frequency of Communication with Friends and Family: ??? Frequency of Social Gatherings with Friends and Family: ??? Attends Orthodox Services: ??? Active Member of Clubs or Organizations: ??? Attends Club or Organization Meetings: ??? Marital Status: Intimate Partner Violence: ??? Fear of Current or Ex-Partner: ??? Emotionally Abused: ??? Physically Abused: ??? Sexually Abused: he is retired. He prior to work for [email or web address]. He drinks alcohol socially once per week. He denies tobacco. Family history Father pancreatic cancer mom pancreatic cancer no family history of colon cancer ALLERGIES: No Known Allergies MEDICATIONS: Luis Daniel Ford has a current medication list which includes the following prescription(s): acetaminophen-codeine, aspirin, doxycycline hyclate, insulin aspart, insulin aspart, insulin detemir, humalog kwikpen, levothyroxine, lisinopril, na-k-mg sulfates, onetouch verio, and vitamin d (ergocalciferol). REVIEW OF SYSTEMS: General ROS: alert oriented and cooperative ENMT ROS: patent airway Endocrine ROS: negative Respiratory ROS: negative, no cough, shortness of breath, or wheezing Cardiovascular ROS: negative,no chest pain or dyspnea on exertion Gastroenterology: See HPI Genito-Urinary ROS: negative, no dysuria, trouble voiding, or hematuria Musculoskeletal ROS: negative Neurological ROS: negative,no TIA or stroke symptoms Dermatological ROS: negative Skin: No rash or pruritus. PHYSICAL EXAM: BP 160/86 Pulse 74 Wt 127 kg (280 lb) SpO2 98% BMI 33.2 kg/m2 Physical Exam: Gen: Alert, oriented, no distress HEENT: Nc/at, perrl/eomi, OP clear Neck: No significant LAD, nonpalpable thyroid Lungs: CTA bilaterally CV: RRR, s1s2, no murmurs heard Abdomen: Soft, non tender, non distended, normal bowel sounds, no organomegaly Extremities: No edema Skin: Normal. No rash. LABS: Recent Labs Component Name 01/10/16 0327 01/08/162009 SODIUM 134* 136 POTASSIUM 4.0 3.5 CHLORIDE 103 99 CO2 25 28 BUN 15 15 CREATININE 0.87 1.28 GLUCOSE 328* 176* Recent Labs Component Name 01/10/16 0327 01/08/162009 WBC 6.8 11.9* HGB 13.9 15.3 PLTCOUNT 171 269 MCV 84.9 84.6 Recent Labs Component Name 07/06/16 1529 01/08/162009 ALBUMIN 3.9 3.9 ALKPHOS 73 83 TBIL 0.4 0.5 AST 14 10 ALT 22 20 No results for input(s): AMYLASE, LIPASE, FERRITIN, IRON in the last 80330 hours. Invalid input(s): SATURATION ASSESSMENT/PLAN: Luis Daniel Ford is a 65 year old male with diabetes, hypertension who presents for consultation for initial colorectal cancer screening 1. Colorectal cancer screening He will be scheduled for his initial colonoscopy. Consent was reviewed. He will hold his aspirin 7 days prior to the procedure He will be given Suprep. Bowel prep instructions were reviewed. I have discussed the above recommendations and their risks, benefits, and alternatives, with the patient and any family present, and all agreed with the plan. All questions were answered. documented in this encounter Miscellaneous Notes * Addendum Note - Nicole Berrios - 08/10/2020 8:21 AM CDTAddended by: NICOLE BERRIOS on: 08/10/2020 08:21 AM Modules accepted: Level of Service documented in this encounter Plan of Treatment Not on file documented as of this encounter Visit Diagnoses Diagnosis Screening for colorectal cancer- Primary Special screening for malignant neoplasms, colon documented in this encounter Care Teams Highway Engineering Teacher Relationship Specialty Start Date End Date Sebastian Noguera Jr., MD PCP - General Family Medicine 01/08/16 documented as of this encounter
--- OUTSIDE RECORDS SUMMARY | 2024-04-06 23:57 | XMS_ITS | Encounter Summary ---
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 Name Role Phone Chuckie Chavira MD, Sebastian Grace Primary Care Provid er Reason for Visit * Auth/Cert Specialty Diagnoses / Procedures Referred By Contmitchell t Referred To Contact Procedures COLONOSCOPY SCREEN Referral ID Status Reason Start Date Expiration Date Visits Re quested Visits Authorized [id number] 1 1 Encounter Details Date Type Department Care Team (Latest Contact Info) Description 09/13/2020 7:50 AM CDT - 09/13/2020 10:08 AM CDT Hospital Encounter [facility] [address] [place], [place] [id number] [place] [id number] [id number] Surgery General Discharge Disposition: Home or Self Care Social [...] Sign Reading Time Taken Comments Blood Pressure 120/79 09/13/2020 9:50 AM CDT Pulse 75 09/13/2020 9:50 AM CDT Temperature 37 ??C (98.6 ??F) 09/13/2020 8:11 AM CDT Respiratory Rate 18 09/13/2020 9:50 AM CDT Oxygen Saturation 94% 09/13/2020 9:50 AM CDT Inhaled Oxygen Concentration - - [...] Case Report Surgical Pathology Report ? Case: [id number] ? Authorizing Provider: ??Tr Fofana MD ? Collected: ? 09/13/2020 09:29 AM ? Ordering Location: ? [facility] ?Received: ?09/13/2020 10:45 AM ? Pathologist: ? Ailyn Holland MD ? Specimen: ?Polyp Sigmoid, polyp 1; hot snare removal; clipped ? 09/14/2020 3:44 PM CDT [facility] Final Diagnosis Sigmoid polyp, biopsy: -- Tubular adenoma 09/14/2020 3:44 PM CDT [facility] Clinical History Screening colonoscopy. A 14 [...] developed and its performance characteristic determined by [facility], Department of Laboratory Medicine. It has not [...] interpreted with caution. 09/14/2020 3:44 PM CDT [facility] Embedded Images 09/14/2020 3:44 PM CDT [facility] Pathology/Cytolo gy POLYP OF SIGMOID COLON / Unknown 09/13/2020 9:29 AM CDT 09/13/2020 10:45 AM CDT Tr Fofana MD LAB - PATHOLOGY/CYT OLOGY ORDERABLES Performing Organization Address [facility]/ZIP Co de Phone Number [facility] [address] [place] [address] * (ABNORMAL) GLUCOSE - POINT OF CARE (09/13/2020 8:23 AM CDT) Glucose WB/POC 269(H) 70 - 106 mg/dL 09/13/2020 8:24 AM CDT [facility] Specimen Type Venous 09/13/2020 8:24 AM CDT [facility] Blood BLOOD SPECIMEN / Unknown 09/13/2020 8:23 AM CDT 09/13/2020 8:24 AM CDT Tr Fofana MD LAB - POINT OF CARE ORDERABLES Performing Organization Address [facility] Co de Phone Number [facility] [address] [place] [address] * ENDOSCOPY, COLON, SCREENING (09/13/2020 8:05 AM [...] the physician, the nurse and the ? learning disabilities specialist in the procedure room. Mental Status ? [...] Procedure Code(s): ? --- Professional --- ? 83780, Colonoscopy, flexible; with removal of tumor(s), polyp(s), or ? other lesion(s) by snare technique ? --- Technical --- ? 87784, Colonoscopy, flexible; with removal of tumor(s), polyp(s), [...] abscess ? without bleeding CPT copyright 2019 [employer]. All rights reserved. The codes documented in this report are preliminary and upon medical biller/coder review may be revised to meet current compliance requirements. Dr. Tr Fofana MD rT Fofana MD 09/13/2020 9:33:03 AM This report has been signed electronically. Number of Addenda: 0 Note Initiated On: 09/13/2020 8:05 AM [facility] 09/13/2020 8:05 AM CDT Tr Fofana MD GI PROCEDURE ORDERA YUE [facility] [place] [address] documented in this encounter Visit Diagnoses Diagnosis Diverticulosis Diverticulosis of colon (without mention of hemorrhage) Polyp of sigmoid colon, unspecified type documented in this encounter Administered Medications Inactive Administered [...] RN) documented in this encounter Care Teams Pasteurizing Machine Operator Relationship Specialty Start Date End Date Sebastian Noguera Jr., MD PCP - General Family Medicine 01/08/16 documented as of this encounter
--- OUTSIDE RECORDS SUMMARY | 2024-04-06 23:57 | XMS_ITS | Encounter Summary ---
Author Organization [facility] Address [address] [place] [address] Care Team Providers Care Furnace Reliner Name Role Phone Chuckie Chavira MD, Sebastian Grace Primary Care Provid er Reason for Visit * Reason Comments Syncope Patient bibems after a syncopal episode at [facility]. Endorses drinking 1 beer. Reports feeling lightheaded and queasy prior to syncopal episode. Type I diabetic BG 200's. Denies CP, SOB, or pain. Feels 'out of it and queasy Encounter Details Date Type Department Care Team (Late st Contact Info) Description 04/07/2022 12:26 AM STEAM AND POWER SUPERVISOR - 04/07/2022 6:19 AM [facility] Emergency [facility] [address] [place] [address] Missy Tobar MD [address] [place] [address] Syncope and collapse; Acute cystitis without hematuria Discharge Disposition: Home or Self Care Social [...] Comments Blood Pressure 145/78 04/07/2022 6:02 AM STEAM AND POWER SUPERVISOR Pulse 72 04/06/2022 7:31 PM STEAM AND POWER SUPERVISOR Temperature 36.3 ??C (97.4 ??F) 04/06/2022 7:31 PM CS T Respiratory Rate 18 04/06/2022 7:31 PM STEAM AND POWER SUPERVISOR Oxygen Saturation 93% 04/07/2022 6:02 AM STEAM AND POWER SUPERVISOR Inhaled Oxygen Concentration - - Weight - - Height - - Body Mass Index - - documented in this encounter Functional Status Functional [...] No 01/09/2016 documented as of this encounter Discharge Instructions * Discharge Instructions* Sean Eng MD - 04/07/2022 5:10 AM STEAM AND POWER SUPERVISOR You were evaluated in the ED after a syncopal episode last night. Your head CT was normal and your labs were concerning for a urinary tract infection. You were prescribed an oral antibiotic for this infection-- you should take this as instructed. You should follow up with your PCP in 1-2 weeks. Please return to the ED for any new or worsening chest pain, shortness of breath, lightheadedness, palpitations, or any life or limb-threatening concerns. M AND POWER SUPERVISOR documented in this encounter Medications at Time of Discharge Medication Sig Dispensed Refills Start Date End Date acetaminophen-codei ne (TYLENOL #3) 300-30 MG tablet Take 1 [...] by mouth once daily 177 mL 08/04/2020 MD Lingo VERIO test strip USE TO TEST TID 01/31/2020 Vitamin D, Cholecalciferol, 25 MCG (1000 UT) CAPS cephalexin (Keflex) 500 MG capsuleIndications: Genitourinary Infection Take 1 (one) capsule by mouth 4 times daily for 7 days Reasons: Infection of Genitals and/or Urinary Tract 28 capsule 04/07/2022 04/14/2022 documented as of this encounter Progress Notes * Jo Pelyao RT(R)ADDIE - 04/06/2022 9:22 PM CST Pt is refusing CT scans at this time. M AND POWER SUPERVISOR documented in this encounter ED Notes * Earline Fontenot RN - 04/07/2022 6:18 AM CST Patient is calling his to pick him up, patient has steady gait and A&0 M AND POWER SUPERVISOR * Earline Fontenot RN - 04/07/2022 5:49 AM CST Patient sleeping M AND POWER SUPERVISOR * Earline Fontenot RN - 04/07/2022 4:40 AM CST Provider notified of glucose and patient states he has his own insulin that he will take if needed M AND POWER SUPERVISOR * Earline Fontenot RN - 04/07/2022 4:32 AM CST POC glucose 285 in finger on right hand and patient states his Dexcom was reading 206, second glucose done in finger on right hand 228 M AND POWER SUPERVISOR * Earline Fontenot RN - 04/07/2022 4:03 AM CST Patient resting M AND POWER SUPERVISOR * Earline Fontenot RN - 04/07/2022 4:01 AM CST Second troponin due at 0450 M AND POWER SUPERVISOR * Missy Tobar MD - 04/07/2022 12:31 AM CST ED Attending Note Patient was seen and evaluated with resident physician, Dr. Love, who also contributed to this note. Interval History: Luis Daniel Ford is a 67 year old male with a PMHx of T1DM, HTN, and hypothyroidism presenting to theED c/o syncope. Pt reports that he experienced a syncopal episode earlier tonight. He states that he was out eating dinner with his brother when he syncopized upon standing. He states that he felt nauseous and lightheaded prior to standing, and lost consciousness upon standing up. Pt denies head trauma. He states that he had one beer prior to the episode. Pt notes that the POCBG performed by EMS on scene was ~200. He denies HERNANDEZ, neck pain, chest pain, N/V, palpitations, abdominal pain, or SOB. He reports that he his symptoms have completely resolved after receiving an LR bolus in the WR. He notes that he has chronic BLE neuropathy d/t his DM. No alleviating or exacerbating factors. No other modifying factors or complaints at this time. Past Medical History: Diagnosis Date ??? Diabetes ??? Hypertension ??? Hypothyroid 10/2012 Past Surgical History: Procedure Laterality Date ??? COLONOSCOPY 09/13/2020 COLONOSCOPY SCREEN ??? Tonsillectomy Social History Socioeconomic History ??? Marital status: Spouse name: Not on file ??? Number of children: Not on file ??? Years of education: Not on file ??? Highest education level: Not on file Occupational History ??? Not on file Tobacco Use ??? Smoking status: Never ??? Smokeless tobacco: Never Vaping Use ??? Vaping Use: Never used Substance and Sexual Activity ??? Alcohol use: Yes Alcohol/week: 4.0 standard drinks Types: 4 Standard drinks or equivalent per week ??? Drug use: No ??? Sexual activity: Not on file Other Topics Concern ??? Special Diet Not Asked Social History Narrative ??? Not on file Social Determinants of Health Financial Resource Strain: Not on file Food Insecurity: Not on file Transportation Needs: Not on file Stress: Not on file Housing Stability: Not on file Review of Systems: (+) positive All systems negative except as marked. Constitutional: Negative for fever HENT: Negative for sore throat. Eyes: Negative for visual changes Respiratory: Negative for SOB, cough Cardiovascular: Negative for chest pain, palpitations Gastrointestinal: Negative abdominal pain, nausea, vomiting, diarrhea Genitourinary: Negative for difficulty urinating, hematuria, dysuria Musculoskeletal: Negative for neck pain, back pain, myalgia Skin: Negative for rash, itching Neurological: Negative for HERNANDEZ, dizziness, weakness, numbness, tingling. +Syncope Psychiatric: Negative for SI, hallucinations, anxiety Vitals: 04/06/22 1931 BP: 113/85 Pulse: 72 Resp: 18 Temp: 97.4 ??F (36.3 ??C) SpO2: 99% Exam: Constitutional: well developed, well nourished, no acute distress HENT: normocephalic, atraumatic, moist oral mucosa, conjunctiva normal Eyes: PERRL, no drainage Neck: supple, normal ROM Cardiovascular: regular rate and rhythm, no murmur Respiratory: clear to auscultation bilaterally, no wheezes, no respiratory distress Abdomen: soft, non-tender, non-distended Musculoskeletal: no edema or deformities Skin: warm, dry, no lesions Neurological: awake, alert&Ox4, moving all extremities, no focal motor/sensation deficits. Psychiatric: mood and affect normal MDM: Problem List: 1) Syncope Differential diagnosis to evaluate in the emergent setting: Arrhythmia vs electrolyte abnormality vs ACS vs dehydration vs orthostatic hypotension vs anemia vsUTI vs other Workup: See lab testing and radiography ordered Treatment plan: Symptom control Workup with labs/imaging Reassess Results: Labs Reviewed CBC W AUTO DIFFERENTIAL - Abnormal; Notable for the following components: Result Value MCHC 36.2 (*) Neutrophils % 72.9 (*) Lymphocytes % 18.8 (*) Neutrophils Absolute 7.17 (*) Basophils Absolute 0.09 (*) All other components within normal limits COMPREHENSIVE METABOLIC PANEL - Abnormal; Notable for the following components: BUN 6 (*) Potassium 2.5 (*) Chloride 109 (*) CO2 21 (*) Glucose 186 (*) Calcium 7.3 (*) Protein Total 5.5 (*) Albumin 3.2 (*) All other components within normal limits BLOOD GASES DENEEN + COOX PANEL - Abnormal; Notable for the following components: pH Venous 7.46 (*) pO2 Venous 24 (*) HCO3 Venous 31.3 (*) Base Excess Venous 6.4 (*) O2 Saturation Venous 31 (*) All other components within normal limits Narrative: Carboxyhemoglobin Normal Concentration: Non-smokers: 0-2%; Smokers: 0-9%; Toxic: >20% TROPONIN I - Normal HYDROXYBUTYRATE BETA - Normal URINALYSIS REFLEX TO MICROSCOPIC NO CULTURE TROPONIN I TROPONIN I CT HEAD WO CONTRAST (Results Pending) EKG Interpretation: Interpreted by me: Date: 04/07/2022 Time: 1943 R&R: NSR with a ventricular rate of 74 bpm Additional findings: Anterior T-wave inversions. Left anterior vesicular block ED course: The patient's Oxygen Saturation Monitor was interpreted by me. The reading was 99%. The patient wason RA at the time of the reading. This is interpreted as normal. UA with evidence of UTI. Will treat with fluids and antibiotics. Feeling better, but tired overall. Plan for discharge. Consult No Procedure done at this time No Ultrasound done at this time No CRITICAL CARE IN THE ED No Orders and Medicine administered during this encounter: Orders Placed This Encounter ??? CT HEAD WO CONTRAST ??? CBC W AUTO DIFFERENTIAL ??? COMPREHENSIVE METABOLIC PANEL ??? TROPONIN I ??? TROPONIN I ??? URINALYSIS REFLEX TO MICROSCOPIC NO CULTURE ??? HYDROXYBUTYRATE BETA ??? BLOOD GASES DENEEN + COOX PANEL ??? EKG 12-LEAD ??? lactated ringers IV bolus ??? folic acid (Folvite) tablet 1 mg ??? thiamine (Vitamin B-1) tablet 100 mg ??? potassium chloride (Klor-Con) packet 40 mEq ??? magnesium oxide (Mag-Ox) tablet 400 mg Medications folic acid (Folvite) tablet 1 mg (has no administration in time range) thiamine (Vitamin B-1) tablet 100 mg (has no administration in time range) potassium chloride (Klor-Con) packet 40 mEq (has no administration in time range) magnesium oxide (Mag-Ox) tablet 400 mg (has no administration in time range) lactated ringers IV bolus (1,000 mL Intravenous $ New Bag/Syringe 04/06/222043) Clinical Impression: 1. Syncope and collapse 2. Acute cystitis without hematuria Scripts: Disposition: Discharge Follow-up: By signing my name below, I, Juliocesar Lomax, attest that this documentation has been prepared under the direction and in the presence of Dr. Tobar. Signed: Zee Black. I, Dr. Tobar, personally performed the services described in this documentation. All medical record entries made by the scribe were at my direction and in my presence. I have reviewed the chart and agree that the record reflects my personal performance and is accurate and complete. Signed: Dr. Tobar. 04/08/2022. 3:49 AM. M AND POWER SUPERVISOR * Keysha Alatorre MD - 04/07/2022 12:26 AM CST Bed: AC22 Expected date: Expected time: Means of arrival: Comments: lina M AND POWER SUPERVISOR * Imelda Fu - 04/07/2022 12:23 AM CST Pt IV removed. M AND POWER SUPERVISOR * Imelda Fu - 04/07/2022 12:18 AM CST Pt stating I will do the CT Pt is being taken back to room at this time. M AND POWER SUPERVISOR * Carmen Waller - 04/06/2022 11:23 PM CST Patient stated he wants his fluids disconnected and done with them at this time. He states he feelsbetter, but he hasn't eaten or drunk anything,he is diabetic with diabetic neuropathy, asking aboutwait time. IV fluids disconnected at this time. Patient OK with leaving IV in arm for access and further blood work at this time. M AND POWER SUPERVISOR * Shun Ordonez PA-C - 04/06/2022 9:26 PM CST technical data analyst advised patient is declining CT scans of head and neck. Only wanting IV hydration. M AND POWER SUPERVISOR * Brie Sosa RN - 04/06/2022 9:26 PM CST Pt refusing all scans from CT. States he wants iv fluids and that's it M AND POWER SUPERVISOR * Brie Sosa RN - 04/06/2022 7:38 PM CST Patient bibems after a syncopal episode at [facility]. Endorses drinking 1 beer. Reports feeling lightheaded and queasy prior to syncopal episode. Type I diabetic BG 200's. Denies CP, SOB, or pain. Feels 'out of it and queasy M AND POWER SUPERVISOR documented in this encounter Plan of Treatment Not on file documented as of this encounter Procedures Procedure Name Priority Date/Time Associated Diagnosis Comments CARDIAC EKG ORDER 04/07/2022 11: 23 AM STEAM AND POWER SUPERVISOR TROPONIN I Timed 04/07/2022 4:43 AM STEAM AND POWER SUPERVISOR GLUCOSE - POINT OF CARE Routine 04/07/19 4:32 AM STEAM AND POWER SUPERVISOR GLUCOSE - POINT OF CARE Routine 04/07/19 4:29 AM STEAM AND POWER SUPERVISOR URINALYSIS REFLEX TO MICROSCOPIC NO CULTURE STAT 04/07/2022 2:03 AM STEAM AND POWER SUPERVISOR TROPONIN I Timed 04/07/2022 1:51 AM STEAM AND POWER SUPERVISOR CT HEAD WO CONTRAST STAT 04/07/2022 1 :29 AM STEAM AND POWER SUPERVISOR Syncope and collapse COMPREHENSIVE METABOLIC PANEL STAT 04/06/2022 8:52 PM STEAM AND POWER SUPERVISOR BLOOD GASES DENEEN + COOX PANEL STAT 04/06/2022 7:58 PM STEAM AND POWER SUPERVISOR TROPONIN I STAT 04/06/2022 7:58 PM STEAM AND POWER SUPERVISOR HYDROXYBUTYRATE BETA STAT 04/06/2022 7:58 PM STEAM AND POWER SUPERVISOR CBC W AUTO DIFFERENTIAL STAT 04/06/19 7:58 PM STEAM AND POWER SUPERVISOR EKG 12-LEAD Routine 04/06/2022 7:44 PM STEAM AND POWER SUPERVISOR Syncope and collapse documented in this encounter Results * CARDIAC EKG ORDER (04/07/2022 11:23 AM STEAM AND POWER SUPERVISOR) Narrative 04/07/2022 11:23 AM STEAM AND POWER SUPERVISOR Ordered by an unspecified provider. Scanned Document CARDIAC SERVICES ORD ERABLES * TROPONIN I (04/07/2022 4:43 AM STEAM AND POWER SUPERVISOR) Troponin I <0.010 <0.032 ng/mL 04/07/2022 5:35 AM STEAM AND POWER SUPERVISOR [facility] Blood BLOOD SPECIMEN / Unknown Line Draw / Unknown 04/07/2022 4:43 AM STEAM AND POWER SUPERVISOR 04/07/2022 4:59 AM STEAM AND POWER SUPERVISOR Shun Ordonez PA-C LAB - CHEMISTRY ROBERTO POSADA Performing Organization Address City/[facility]/ZIP Co de Phone Number [address] [address], [place] [phone] * (ABNORMAL) GLUCOSE - POINT OF CARE (04/07/2022 4:32 AM STEAM AND POWER SUPERVISOR) Glucose WB/POC 228(H) 70 - 115 mg/dL 04/07/2022 4:36 AM STEAM AND POWER SUPERVISOR [facility] Specimen Type Cap Fingerstick 2022 4:36 AM STEAM AND POWER SUPERVISOR [facility] Blood BLOOD SPECIMEN / Unknown 04/07/2022 4:32 AM STEAM AND POWER SUPERVISOR 04/07/2022 4:36 AM STEAM AND POWER SUPERVISOR Missy Tobar MD LAB - POINT OF CARE ORDERABLES Performing Organization Address City/[facility]/ZIP Co de Phone Number [address] [address], [place] [phone] * (ABNORMAL) GLUCOSE - POINT OF CARE (04/07/2022 4:29 AM STEAM AND POWER SUPERVISOR) Glucose WB/POC 286(H) 70 - 115 mg/dL 04/07/2022 4:36 AM STEAM AND POWER SUPERVISOR [facility] Specimen Type Cap Fingerstick 2022 4:36 AM STEAM AND POWER SUPERVISOR [facility] Blood BLOOD SPECIMEN / Unknown 04/07/2022 4:29 AM STEAM AND POWER SUPERVISOR 04/07/2022 4:36 AM STEAM AND POWER SUPERVISOR Missy Tobar MD LAB - POINT OF CARE ORDERABLES Performing Organization Address City/[facility]/ZIP Co de Phone Number [address] [address], [place] [phone] * (ABNORMAL) URINALYSIS REFLEX TO MICROSCOPIC NO CULTURE (04/07/2022 2:03 AM STEAM AND POWER SUPERVISOR) Color UA Jennifer(A) Straw, Yellow 04/07/2022 2:19 AM [facility] Clarity UA Cloudy(A) Clear 04/07/2022 2:19 AM [facility] Specific Pitkin UA 1.015 1.005 - 1.030 04/07/2022 2:19 AM [facility] pH UA 5.0 5.0 - 8.0 pH 04/07/2022 2:19 AM [facility] Protein UA 2+(A) Negative 04/07/2022 2:19 AM [facility] Glucose UA 3+(A) Negative 04/07/2022 2:19 AM [facility] Ketone UA 1+(A) Negative 04/07/2022 2:19 AM [facility] Bilirubin UA Negative Negative 04/07/2022 2:19 AM [facility] Blood UA Negative Negative 04/07/2022 2:19 AM [facility] Nitrite UA Negative Negative 04/07/2022 2:19 AM [facility] Leukocyte Esterase Negative Negative 04/07/2022 2:19 AM [facility] Urobilinogen UA 4.0(A) Negative mg/dL 04/07/2022 2:19 AM [facility] RBC UA 3-5 None Seen, 0-2, 3-5 /HPF 04/07/2022 2:19 AM [facility] WBC UA 11-20(A) None Seen, 0-5 /HPF 04/07/2022 2:19 AM [facility] Squamous Epithelial Cells UA 0-2 None Seen, 0-2, 3-5 /HPF 04/07/2022 2:19 AM [facility] Mucus UA 4+ /LPF 04/07/2022 2:19 AM [facility] Hyaline Casts UA 6-10(A) None Seen, 0-2 /LPF 04/07/2022 2:19 AM [facility] Urine URINE SPECIMEN OBTAINED BY CLEAN CATCH PROCEDURE / Unknown Collection / Unknown 04/07/2022 2:03 AM [facility] 04/07/2022 2:05 AM [facility] - 04/07/2022 2:19 AM STEAM AND POWER SUPERVISOR Shun José Luis PA-C LAB - URINALYSIS ORD ERABLES [address] [address], [facility] [phone] * TROPONIN I (04/07/2022 1:51 AM STEAM AND POWER SUPERVISOR) Troponin I <0.010 <0.032 ng/mL 04/07/2022 2:32 AM STEAM AND POWER SUPERVISOR [facility] Blood BLOOD SPECIMEN / Unknown Venipuncture / Unknown 04/07/2022 1:51 AM STEAM AND POWER SUPERVISOR 04/07/2022 1:59 AM STEAM AND POWER SUPERVISOR Shun Lopezhbach PA-C LAB - CHEMISTRY ORDE RABLES Performing Organization Address [facility]/ZIP Co de Phone Number [address] [address], [facility] [phone] * CT HEAD WO CONTRAST (04/07/2022 1:29 AM STEAM AND POWER SUPERVISOR) Anatomical Region Laterality Modality Head Computed Tomogra phy 04/07/2022 1:46 AM STEAM AND POWER SUPERVISOR Impressions 04/07/2022 10:17 AM STEAM AND POWER SUPERVISOR IMPRESSION: 1.No acute intracranial hemorrhage, midline shift, or significant mass effect. > Dictated by Stuart Levine MD (residential glazier). I, Payton Gonzalez MD have personally reviewed and interpreted this examination/study. > Interpreting Provider: Payton Gonzalez MD on 04/07/2022 10:17 AM Narrative 04/07/2022 10:17 AM STEAM AND POWER SUPERVISOR PROCEDURE: ??CT HEAD WO CONTRAST, DATE/TIME OF EXAM: ??04/07/2022 1:30 AM, LOCATION ??[facility] INDICATION: R55: Syncope and collapse ADDITIONAL CLINICAL INFORMATION: Ordering Provider Reason For Exam: ??is there a bleed Technologist Note: ??None. Additional: ??None. EXAMINATION: Computed tomography (CT) of the head without contrast TECHNIQUE: CT of the head was performed without contrast according to standard protocol. COMPARISON: No prior study is available for comparison at the time of this dictation. FINDINGS: No acute intra- or extra-axial fluid collections are identified. There is mild cerebral volume loss with associated ex vacuo ventricular dilatation. The basilar cisterns are patent. No mass effect or midline shift is seen. The whitfield-white matter differentiation is normal. Periventricular white matter hypoattenuation is indicative of chronic small vessel ischemic disease. There is vascular calcification of the carotid siphons and the V4 segments of the vertebral arteries. No acute calvarial fracture is identified. Other than bilateral cataract extractions, the orbits appear normal. There is mild paranasal sinus disease. Opacification of the dependent right mastoid air cells. No soft tissue abnormality is identified. Procedure Note Payton Gonzalez MD - 04/07/2022 PROCEDURE: CT HEAD WO CONTRAST, DATE/TIME OF EXAM: 04/07/2022 1:30 AM, LOCATION [facility] INDICATION: R55: Syncope and collapse ADDITIONAL CLINICAL INFORMATION: Ordering Provider Reason For Exam: is there a bleed Technologist Note: None. Additional: None. EXAMINATION: Computed tomography (CT) of the head without contrast TECHNIQUE: CT of the head was performed without contrast according to standard protocol. COMPARISON: No prior study is available for comparison at the time ofthis dictation. FINDINGS: No acute intra- or extra-axial fluid collections are identified. Thereis mild cerebral volume loss with associated ex vacuo ventriculardilatation. The basilar cisterns are patent. No mass effect or midline shift isseen. The whitfield-white matter differentiation is normal. Periventricular white matter hypoattenuation is indicative of chronic small vessel ischemic disease. There is vascular calcification of the carotid siphons and theV4 segments of the vertebral arteries. No acute calvarial fracture is identified. Other than bilateral cataract extractions, the orbits appear normal. There is mild paranasal sinus disease. Opacification of the dependent right mastoid air cells. No soft tissue abnormality is identified. IMPRESSION: 1.No acute intracranial hemorrhage, midline shift, or significant mass effect. > Dictated by Stuart Levine MD (residential glazier). IPayton MD have personally reviewed and interpretedthis examination/study. > Interpreting Provider: Payton Gonzalez MD on 04/07/2022 10:17 AM Missy Tobar MD CT ORDERABLES * (ABNORMAL) COMPREHENSIVE METABOLIC PANEL (04/06/2022 8:52 PM [facility]) BUN 6(L) 7 - 26 mg/dL 04/06/2022 9:27 PM [facility] Creatinine 0.82 0.71 - 1.16 mg/dL 04/06/2022 9:27 PM [facility] Sodium 141 136 - 145 mmol/L 04/06/2022 9:27 PM [facility] Potassium 2.5(L) 3.5 - 4.5 mmol/L 04/06/2022 9:27 PM [facility] Chloride 109(H) 98 - 107 mmol/L 04/06/2022 9:27 PM [facility] CO2 21(L) 22 - 29 mmol/L 04/06/2022 9:27 PM [facility] Glucose 186(H) 70 - 115 mg/dL 04/06/2022 9:27 PM [facility] Calcium 7.3(L) 8.4 - 10.2 mg/dL 04/06/2022 9:27 PM [facility] Protein Total 5.5(L) 6.0 - 8.3 g/dL 04/06/2022 9:27 PM [facility] Albumin 3.2(L) 3.4 - 5.0 g/dL 04/06/2022 9:27 PM [facility] Bilirubin Total 0.7 0.2 - 1.2 mg/dL 04/06/2022 9:27 PM [facility] Alkaline Phosphatase 47 40 - 150 U/L 04/06/2022 9:27 PM [facility] ALT 9 5 - 55 U/L 04/06/2022 9:27 PM [facility] AST 7 5 - 34 U/L 04/06/2022 9:27 PM [facility] Anion Gap 14 8 - 18 04/06/2022 9:27 PM [facility] BUN/Creatinine Ratio 7 7 - 23 04/06/2022 9:27 PM [facility] Osmolality Calculated 294 270 - 300 mOsm/kg 04/06/2022 9:27 PM [facility] Albumin/Globulin Ratio 1.4 1.1 - 2.3 04/06/2022 9:27 PM [facility] eGFR by CKD-EPI >90 >=90 mL/min/1.7 3 m2 04/06/2022 9:27 PM [facility] Blood BLOOD SPECIMEN / Unknown Venipuncture / Unknown 04/06/2022 8:52 PM STEAM AND POWER SUPERVISOR 04/06/2022 9:00 PM STEAM AND POWER SUPERVISOR Shun Ordonez PA-C LAB - CHEMISTRY ROBERTO POSADA [facility] [address] [place] [address], [facility] [phone] * (ABNORMAL) BLOOD GASES DENEEN + COOX PANEL (04/06/2022 7:58 PM STEAM AND POWER SUPERVISOR) pH Venous 7.46(H) 7.32 - 7.42 pH 04/06/2022 8:12 PM [facility] pO2 Venous 24(L) 35 - 40 mmHg 04/06/2022 8:12 PM [facility] pCO2 Venous 44 40 - 50 mmHg 04/06/2022 8:12 PM [facility] HCO3 Venous 31.3(H) 20 - 30 mmol/L 04/06/2022 8:12 PM [facility] Base Excess Venous 6.4(H) -2.0 - 2.0 mmol/L 04/06/2022 8:12 PM [facility] Oxyhemoglobin Venous 30.4 % 03/19 8:12 PM [facility] Deoxyhemoglobin (HHB) Venous % 68.6 % 04/06/2022 8:12 PM [facility] Methemoglobin <0.8 0.0 - 2.0 % 04/06/2022 8:12 PM [facility] Carboxyhemoglobin 0.6 0.0 - 2.0 % 2022 8:12 PM [facility] O2 Content Venous 7.2 Interpret within clinical context ml/dL 04/06/2022 8:12 PM [facility] Hemoglobin by COOX 16.9 12.0 - 17.6 g/dL 04/06/2022 8:12 PM STEAM AND POWER SUPERVISOR [facility] O2 Saturation Venous 31(L) >=70 % 03/19 8:12 PM STEAM AND POWER SUPERVISOR [facility] FI O2 Mixed Venous 21.0 % 2022 8:12 PM STEAM AND POWER SUPERVISOR [facility] Blood BLOOD SPECIMEN / Unknown Venipuncture / Unknown 04/06/2022 7:58 PM STEAM AND POWER SUPERVISOR 04/06/2022 8:03 PM STEAM AND POWER SUPERVISOR Narrative [facility] - 04/06/2022 8:12 PM STEAM AND POWER SUPERVISOR Carboxyhemoglobin Normal Concentration: Non-smokers: 0-2%; Smokers: 0-9%; Toxic: >20% Shnu Ordonez PA-C LAB - BLOOD GASES OR DERABLES Performing Organization Address City/[facility]/ZIP Co de Phone Number [address] [address], [facility] [phone] * HYDROXYBUTYRATE BETA (04/06/2022 7:58 PM STEAM AND POWER SUPERVISOR) Beta-Hydroxybu tyrate <0.50 <0.50 mmol/L 04/06/2022 8:42 PM STEAM AND POWER SUPERVISOR [facility] Blood BLOOD SPECIMEN / Unknown Venipuncture / Unknown 04/06/2022 7:58 PM [employer] AND POWER SUPERVISOR 04/06/2022 8:05 PM [employer]OWER SUPERVISOR Shun Ordonez PA-C LAB - CHEMISTRY ORDE RABLES [address] [address], [facility] [phone] * TROPONIN I (04/06/2022 7:58 PM STEAM AND POWER SUPERVISOR) Troponin I <0.010 <0.032 ng/mL 04/06/2022 8:31 PM [employer] AND POWER SUPERVISOR [facility] Blood BLOOD SPECIMEN / Unknown Venipuncture / Unknown 04/06/2022 7:58 PM [employer] AND POWER SUPERVISOR 04/06/2022 8:09 PM [employer]OWER SUPERVISOR Shun Ordonez PA-C LAB - CHEMISTRY ROBERTO POSADA [facility] [address] [place] [address], [facility] [phone] * (ABNORMAL) CBC W AUTO DIFFERENTIAL (04/06/2022 7:58 PM STEAM AND POWER SUPERVISOR) WBC 9.8 3.5 - 10.5 10? 3 /uL 04/06/2022 8:09 PM [facility] RBC 5.52 4.30 - 5.70 10? 6 /uL 04/06/2022 8:09 PM [facility] Hemoglobin 16.6 12.0 - 17.6 g/dL 04/06/2022 8:09 PM [facility] Hematocrit 45.8 35.2 - 51.7 % 04/06/2022 8:09 PM [facility] MCV 83.0 80.7 - 98.3 fL 04/06/2022 8:09 PM [facility] MCH 30.1 26.7 - 34.0 pg 04/06/2022 8:09 PM [facility] MCHC 36.2(H) 30.8 - 35.9 g/dL 04/06/2022 8:09 PM [facility] RDW-SD 36.0 36.0 - 50.0 fL 04/06/2022 8:09 PM [facility] RDW-CV 11.9 11.2 - 14.8 % 04/06/2022 8:09 PM [facility] Platelet Count 222 150 - 400 10? 3 /uL 04/06/2022 8:09 PM [facility] MPV 9.5 9.4 - 12.9 fL 04/06/2022 8:09 PM [facility] nRBC Absolute 0.00 0 10? 3 /uL 04/06/2022 8:09 PM [facility] nRBC Auto 0.0 0 /100 WBC 04/06/2022 8:09 PM [facility] Neutrophils % 72.9(H) 35.0 - 70.0 % 04/06/2022 8:09 PM [facility] Lymphocytes % 18.8(L) 20.0 - 43.0 % 04/06/2022 8:09 PM [facility] Monocytes % 5.1 5.0 - 13.0 % 04/06/2022 8:09 PM [facility] Eosinophils % 1.7 0.0 - 6.0 % 04/06/2022 8:09 PM [facility] Basophil % 0.9 0.0 - 2.0 % 04/06/2022 8:09 PM [facility] Neutrophils Absolute 7.17(H) 1.60 - 7.00 10? 3 /uL 04/06/2022 8:09 PM [facility] Lymphocyte Absolute 1.85 1.10 - 3.90 10? 3 /uL 04/06/2022 8:09 PM [facility] Monocytes Absolute 0.50 0.26 - 1.07 10? 3 /uL 04/06/2022 8:09 PM [facility] Eosinophils Absolute 0.17 0.00 - 0.47 10? 3 /uL 04/06/2022 8:09 PM [facility] Basophils Absolute 0.09(H) 0.00 - 0.08 10? 3 /uL 04/06/2022 8:09 PM [facility] Immature Granulocytes % 0.6 0.0 - 1.0 % 04/06/2022 8:09 PM [facility] Immature Granulocytes Absolute 0.06 04/06/2022 8:09 PM [facility] Blood BLOOD SPECIMEN / Unknown Venipuncture / Unknown 04/06/2022 7:58 PM [employer] AND POWER SUPERVISOR 04/06/2022 8:05 PM [facility] Shun Ordonez PA-C LAB - HEMATOLOGY ORD ERABLES [facility] [address] [place] [address], [facility] [phone] * EKG 12-LEAD (04/06/2022 7:44 PM STEAM AND POWER SUPERVISOR) Ventricular Rate 74 BPM [facility] Atrial Rate 74 BPM [facility] P-R Interval 140 ms [facility] QRS Duration ms 86 ms [facility] Q-T Interval ms 406 ms [facility] QTC Calculation (Bezet) 450 ms [facility] Calculated P [place] 76 degrees [facility] Calculated R [place] -65 degrees [facility] Calculated T [place] 20 degrees [facility] Interpretation EKG NORMAL SINUS RHYTHM LEFT ANTERIOR FASCICULAR BLOCK ANTERIOR INFARCT , AGE UNDETERMINED ABNORMAL ECG WHEN COMPARED WITH ECG OF 13-NOV-2007 20:51, CRITERIA FOR ANTERIOR INFARCT IS NOW PRESENT VENT. RATE HAS INCREASED by 19 bpm Confirmed by LUC KAPLAN MD ([id number]) on 04/07/2022 5:25:55 AM [facility] 04/06/2022 7:44 PM STE[employer] AND POWER SUPERVISOR 04/07/2022 5:25 AM [employer] AND [employer]OWER SUPERVISOR Shun Ordonez PA-C ECG ORDERABLES [facility] documented in this encounter Visit Diagnoses Diagnosis Syncope and collapse Acute cystitis without hematuria Acute cystitis documented in this encounter Administered Medications Inactive Administered Medications - up to 3 most recent administrations Medication Order MAR Action Action Date Dose Rate Site cefTRIAXone (Rocephin) 1,000 mg in 0.9% NaCl IV 50 mL IVPB 1,000 mg (1 g), at 100 mL/hr, Intravenous, EVERY 24 HOURS, First dose on Sun04/07/22 at 0400, Until Discontinued, Ceftriaxone can cause precipitation when administered with calcium-containing fluids, including LR. Flush lines with a compatible fluid, such as D5W or NS before and after ceftriaxone dose. Admin through separate lumens is acceptable. , Indication for anti-infective therapy: Suspected infection, Site of anti-infective therapy: Urine/Genitourinary $ New Bag/Syringe 04/07/2022 4:24 AM STEAM AND POWER SUPERVISOR 1,000 mg 100 mL/hr folic acid (Folvite) tablet 1 mg 1 mg, Oral, DAILY, First dose on Sun04/07/22 at 0900, Until Discontinued lactated ringers IV bolus 1,000 mL, at 1,935.48 mL/hr, Administer over 31 Minutes, NOW, 1 dose, On Emma 04/06/22 at 1945 $ New Bag/Syringe 04/06/2022 8:44 PM STE[employer] AND POWER SUPERVISOR 1,000 mL 1935.48 mL/hr magnesium oxide (Mag-Ox) tablet 400 mg 400 mg, Oral, NOW, 1 dose, On Sun04/07/22 at 0115 $ Given 04/07/2022 2:01 AM STEAM AND POWER SUPERVISOR 400 mg potassium chloride (Klor-Con) packet 40 mEq 40 mEq, Oral, ONCE, 1 dose, On Sun04/07/22 at 0130, DISSOLVE IN 120 ML OF COLD WATER OR JUICE AND DRINK SLOWLY $ Given 04/07/2022 2:02 AM STEAM AND POWER SUPERVISOR 40 mEq thiamine (Vitamin B-1) tablet 100 mg 100 mg, Oral, DAILY, First dose on Sun04/07/22 at 0900, Until Discontinued documented in this encounter Active and Recently Administered Medications Times are shown in [employer] AND POWER SUPERVISOR. Scheduled Medication Order 04/05/2022 04/06/2022 04/07/2022 cefTRIAXone (Rocephin) 1,000 mg in 0.9% NaCl IV 50 mL IVPB 1,000 mg (1 g), at 100 mL/hr, Intravenous, EVERY 24 HOURS, First dose on Sun04/07/22 at 0400, Until Discontinued, Ceftriaxone can cause precipitation when administered with calcium-containing fluids, including LR. Flush lines with a compatible fluid, such as D5W or NS before and after ceftriaxone dose. Admin through separate lumens is acceptable. , Indication for anti-infective therapy: Suspected infection, Site of anti-infective therapy: Urine/Genitourinary 0424 ($ New Bag/Syri nge - Provider: Earline Fontenot RN)0454 (Due: Stopped - Provider: Earline Fontenot RN) folic acid (Folvite) tablet 1 mg 1 mg, Oral, DAILY, First dose on Sun04/07/22 at 0900, Until Discontinued lactated ringers IV bolus (COMPLETED) 1,000 mL, at 1,935.48 mL/hr, Administer over 31 Minutes, NOW, 1 dose, On Emma 04/06/22 at 1945 2043 ($ New Bag/Syringe - Provider: Brie Sosa RN)2114 (Due: Stopped - Provider: Brie Sosa RN) magnesium oxide (Mag-Ox) tablet 400 mg (COMPLETED) 400 mg, Oral, NOW, 1 dose, On Sun04/07/22 at 0115 0201 ($ Given - Provider: Earline Fontenot RN) potassium chloride (Klor-Con) packet 40 mEq (COMPLETED) 40 mEq, Oral, ONCE, 1 dose, On Sun04/07/22 at 0130, DISSOLVE IN 120 ML OF COLD WATER OR JUICE AND DRINK SLOWLY 0202 ($ Given - Provider: Earline Fontenot RN - Comment: in 8 oz apple juice) thiamine (Vitamin B-1) tablet 100 mg 100 mg, Oral, DAILY, First dose on Sun04/07/22 at 0900, Until Discontinued documented in this encounter Care Teams Furnace Reliner Relationship Specialty Start Date End Date Sebastian Noguera Jr., MD PCP - General Family Medicine 01/08/16 documented as of this encounter
--- OUTSIDE RECORDS SUMMARY | 2024-04-06 23:57 | XMS_ITS | Encounter Summary ---
Author Organization [facility] Address [address] [place] [address] Care Team Providers Care Manager Study Name Role Phone Chuckie Chavira MD, Sebastian Grace Primary Care Provid er Reason for Visit * Auth/Cert Specialty Diagnoses / Procedures Referred By Bernardino t Referred To Contact Procedures COLONOSCOPY SCREEN Referral ID Status Reason Start Date Expiration Date Visits Re quested Visits Authorized [id number] 1 1 Encounter Details Date Type Department Care Team (Late st Contact Info) Description 09/13/2020 9:04 AM CDT Anesthesia Event [facility] [address] [place] [address] [phone] Virgil Duncan MD [address] [place] [phone] Herber Morrell, MULTICRAFT OPERATOR-[address] [place] [address] Anesthesia Record Procedure Summary Procedure Name Responsible Anesthesiologist Anesthesia Start Time Anesthesia Stop Time COLONOSCOPY SCREEN Virgil Duncan MD 09/13/20 0904 09/13/20 0939 Events Date Time Event Comment 09/13/2020 0848 0904 An Start 0904 Out OR Start Data 0905 PT Reassessment 0905 Electnc Sig 0907 Timeout Anesthesia part icipated in timeout at the time documented in the record by nursing. 0939 Out OR Stop Data 0939 An Stop Meds Name Total lidocaine 1% (PF) injection (50 mg/5mL) 50 mg propofol (DIPRIVAN) injection 10mg/ml (E NDO USE) 30 mL 0.9% NaCl infusion 0 mL * Agents Name Exp. N2O O2 * Blood No blood administrations on file. Lines, Drains, and Airways Type Details Placement Removal Peripheral IV Date: 09/13/20; Time : 844; Orientation: Anterior, Right; Placed By: Dr. Toribio; Tolerance: Well 09/13/20 0845 by Brooklyn Valdes RN 09/13/20 0953 by Michelle Engel RN documented in this encounter Social History Tobacco [...] No 01/09/2016 documented as of this encounter Progress Notes * Herber Morrell, MULTICRAFT OPERATOR-LEGAL RECRUITER - 09/13/2020 9:58 AM CDT ANESTHESIA POSTOP EVALUATION NOTE Procedure: COLONOSCOPY SCREEN Luis Daniel Ford is a 65 year old male Patient Vitals for the past 6 hrs: BP Temp Pulse Resp SpO2 Pain Rating Score #1 Pain Scale/Observation 09/13/20 0811 174/96 98.6 ??F (37 ??C) 92 19 98 % 0 N 09/13/20 0904 -- -- -- -- 100 % -- -- 09/13/20 0906 163/89 -- -- -- -- -- -- 09/13/20 0909 -- -- -- -- 100 % -- -- 09/13/20 0911 156/79 -- -- -- -- -- -- 09/13/20 0914 -- -- -- -- 100 % -- -- 09/13/20 0916 133/80 -- -- -- -- -- -- 09/13/20 0919 -- -- -- -- 100 % -- -- 09/13/20 0921 122/75 -- -- -- -- -- -- 09/13/20 0924 -- -- -- -- 99 % -- -- 09/13/20 0926 116/75 -- -- -- -- -- -- 09/13/20 0929 -- -- -- -- 99 % -- -- 09/13/20 0931 107/68 -- -- -- -- -- -- 09/13/20 0934 -- -- -- -- 99 % -- -- 09/13/20 0935 -- -- 76 22 97 % -- -- 09/13/20 0940 100/65 -- 77 15 95 % 0 N 09/13/20 0945 112/77 -- 75 19 93 % -- -- 09/13/20 0950 120/79 -- 75 18 94 % -- -- Anesthesia Type: MAC * No Diagnosis Codes entered * Mental Status: awake, sufficiently recovered from acute administration of anesthesia to participatein the evaluation, alert and oriented Neuro Status: No numbess, tingling or visual disturbances Respiratory Function: natural Cardiac Function: stable Postop Pain: adequate Postop Hydration: adequate Postop Nausea: none Assessment: no apparent anesthetic complications, patient tolerated procedure well and no evidence of recall Patient Disposition: Release from Anesthesia Care COMPLICATIONS: No complications documented. * Virgil Duncan MD - 09/13/2020 8:47 AM CDT ANESTHESIA PREOPERATIVE EVALUATION NOTE Procedure: COLONOSCOPY SCREEN NPO status: Since Midnight (09/13/2020 8:19 AM) Vitals: Patient Vitals for the past 6 hrs: BP Temp Pulse Resp SpO2 Pain Rating Score #1 09/13/20 0811 174/96 98.6 ??F (37 ??C) 92 19 98 % 0 ANESTHESIA PRE-EVALUATION NOTE Physical Exam: Orientation X3 Airway/Mallampati Score: III Mouth Opening Distance: 3 fingerwidths Neck ROM: full TM Distance: > 3 FB Teeth: normal and chipped Heart: regular rate rhythm Lungs: normal Abdomen Exam: obese Physical Exam Additional Comments: FBS- 269 Review of Systems: History of anesthetic complications: No Malignant Hyperthermia: No GERD: No Poor Exercise Tolerance: No Recent Chest Pain: No Shortness of Breath: No ANESTHESIA PLAN ASA Score: 3 NPO Status: No solids since midnight Anesthesia Plan: MAC Planned Induction: intravenous Planned Postop Destination: endo Anesthetic plan was discussed with: patient Anesthetic Plan discussion was: Consented BMI, Height, Weight Tobacco History Estimated body mass index is 34.96 kg/m?? as calculated from the following: Height as of this encounter: 1.854 m (6' 1 ). Weight as of this encounter: 120.2 kg (265 lb). Social History Tobacco Use Smoking Status Never Smoker Smokeless Tobacco Never Used Alcohol History Drug History Social History Substance and Sexual Activity Alcohol Use Yes ??? Alcohol/week: 4.0 standard drinks ??? Types: 4 Standard drinks or equivalent per week Social History Substance and Sexual Activity Drug Use No Outpatient Medications: Inpatient Medications: Outpatient Medications Marked as Taking for the 09/13/20 encounter (Hospital Encounter) Medication Sig Last Dose ??? aspirin Take 325 mg by mouth Past Month at Unknown time ??? doxycycline hyclate Take 100 mg by mouth 2 times daily 09/11/2020 at 0800 ??? insulin aspart 09/11/2020 at 1900 ??? Insulin Aspart (NOVOLOG SC) 09/11/2020 at 1900 ??? Insulin NPH Human, Isophane, (HUMULIN N KWIKPEN MS) Inject 15 Units subcutaneously 3 times daily 09/11/2020 at 1900 ??? levothyroxine Take 1 Tab by mouth once daily 09/11/2020 at 0800 ??? lisinopril Take 20 mg by mouth 09/11/2020 at 0800 ??? NA-K-MG sulfates Take 177 mL by mouth once daily 09/12/2020 at 1400 ??? Vitamin D (Cholecalciferol) 09/11/2020 at 0800 Current Facility-Administered Medications Medication Dose Last Admin ??? 0.9% NaCl IV New Bag at 09/13/20 0846 ??? 0.9% NaCl 3 mL Allergies: No Known Allergies Relevant Problems No relevant active problems Problem List: Patient Active Problem List Diagnosis Date Noted ??? Screening for colorectal cancer 08/04/2020 Priority: Not Prioritized ??? Benign essential HTN 01/10/2016 Priority: Not Prioritized ??? Bradycardia 01/10/2016 Priority: Not Prioritized Medical History: Past Medical History: Diagnosis Date ??? Diabetes ??? Hypertension ??? Hypothyroid 10/2012 Surgical History: Past Surgical History: Procedure Laterality Date ??? Tonsillectomy Covid Vaccine: Yes, Completed 2 Step Series Lab Results: Recent Labs Base Name 09/13/20 0823 [id number]* SPECIMENTYPE Venous No results found for requested labs within last 120 days. No results found for requested labs within last 120 days. documented in this encounter Miscellaneous Notes * Anesthesia Transfer of Care - Herber Morrell, MULTICRAFT OPERATOR-LEGAL RECRUITER - 09/13/2020 9:39 AM CDT ANESTHESIA TRANSFER OF CARE NOTE Today's Date: 09/13/2020 Date of : 1955 Patient: Luis Daniel Ford Procedure(s): COLONOSCOPY SCREEN Surgeon(s): Primary: Tr Fofana MD Preop Diagnosis: * No Diagnosis Codes entered * Pre-op Meds (From admission, onward) Start Stop Status Route Frequency Ordered 09/13/20 0830 0.9% NaCl infusion -- Dispensed IV CONTINUOUS 09/13/20 0758 09/13/20 0757 0.9% NaCl injection 3 mL -- Dispensed IK PRE-PROCEDURE MULTIPLE 09/13/20 0757 * No Diagnosis Codes entered * . No Known Allergies Vitals: Patient Vitals for the past 3 hrs: BP Temp Pulse Resp SpO2 Pain Rating Score #1 09/13/20 0950 120/79 -- 75 18 94 % -- 09/13/20 0945 112/77 -- 75 19 93 % -- 09/13/20 0940 100/65 -- 77 15 95 % 0 09/13/20 0935 -- -- 76 22 97 % -- 09/13/20 0934 -- -- -- -- 99 % -- 09/13/20 0931 107/68 -- -- -- -- -- 09/13/20 0929 -- -- -- -- 99 % -- 09/13/20 0926 116/75 -- -- -- -- -- 09/13/20 0924 -- -- -- -- 99 % -- 09/13/2021 122/75 -- -- -- -- -- 09/13/20 0919 -- -- -- -- 100 % -- 09/13/20 0916 133/80 -- -- -- -- -- 09/13/20 0914 -- -- -- -- 100 % -- 09/13/20 0911 156/79 -- -- -- -- -- 09/13/20 0909 -- -- -- -- 100 % -- 09/13/20 0906 163/89 -- -- -- -- -- 09/13/20 0904 -- -- -- -- 100 % -- 09/13/20 0811 174/96 98.6 ??F (37 ??C) 92 19 98 % 0 Lines, Drains, and Airways Type Details Placement Removal Peripheral IV Date: 09/13/20; Time: 0845; Orientation: Anterior, Right; Location: Wrist; Placed By:Dr. Toribio; Gauge: 20 Gauge; Locals: Trans Dermal; Tolerance: Well 09/13/20 0845 by Brooklyn Valdes RN 09/13/20 0953 by Michelle Engel RN Intraprocedure I/O Totals Intake propofol (DIPRIVAN) injection 10mg/ml (ENDO USE) 30.00 mL Total Intake 30 mL Patient Transfer Location: Endo Recovery Transport Airway: spontaneous respirations Complications: None Handoff Given? Yes Checklist or Protocol - The galeano handoff elements that must be included in the transfer of care checklist include: 1. Identification of patient. 2. Identification of responsible practitioner (PACU nurse or advanced practitioner). 3. Discussion of pertinent medical history. 4. Discussion of the surgical/procedure course (procedure, reason for surgery, procedure performed). 5. Intraoperative anesthetic management and issue/concerns. 6. Expectations/Plans for the early post-procedure period. 7. Opportunity for questions and acknowledgement of understanding of report from the receiving PACUteam. DONALDO Wall documented in this encounter Plan of Treatment Not on file documented as of this encounter Visit Diagnoses Not on filedocumented in this encounter Administered Medications Inactive Administered Medications - up to 3 most recent administrations Medication Order MAR Action Action Date Dose Rate Site lidocaine PF (Xylocaine MPF) 1 % injection Intravenous, PRN, Starting on Sun09/13/20 at 0907, Until Sun09/13/20 at 0941, Anesthesia Intra-op $ Given 09/13/2020 9:07 AM CDT 50 mg propofol (Diprivan) injection Intravenous, CONTINUOUS PRN, Starting on Sun09/13/20 at 0907, Until Sun09/13/20 at 0941, Anesthesia Intra-op $ New Bag/Syringe 09/13/2020 9:07 AM CDT documented in this encounter Care Teams Manager Study Relationship Specialty Start Date End Date Sebastian Noguera Jr., MD PCP - General Family Medicine 01/08/16 documented as of this encounter
--- OUTSIDE RECORDS SUMMARY | 2024-04-06 23:57 | XMS_ITS | Encounter Summary ---
Author Organization [facility] Address [address] [address] Care Team Providers Care Inclusion Internship Name Role Phone Chuckie Chavira MD, Sebastian Grace Primary Care Provid er Reason for Visit * Reason Comments Results colon polyp Encounter Details Date Type Department Care Team (Late st Contact Info) Description 09/16/2020 Telephone [facility] [employer] [facility] [address] [facility], [facility] [address] [place] [address] [place] [id number] [address] Results (colon polyp) Social History Tobacco Use Types Packs/Day Years [...] encounter Miscellaneous Notes * Telephone Encounter - Jannet Reyes RN - 09/16/2020 3:45 PM CDT Results and recommendations called to patient * Telephone Encounter - Jannet Reyes RN - 09/16/2020 3:44 PM CDT ----- Message from Tr Fofana MD sent at 09/14/2020 9:44 PM CDT ----- Colon polyp c/w adenoma Rec Repeat colonoscopy in 3 years documented in this encounter Plan of Treatment Not on file documented as of this encounter Visit Diagnoses Not on filedocumented in this encounter Care Teams Inclusion Internship Relationship Specialty Start Date End Date Sebastian Ngouera Jr., MD PCP - General Family Medicine 01/08/16 documented as of this encounter
--- OUTSIDE RECORDS SUMMARY | 2024-04-06 23:57 | XMS_ITS | Encounter Summary ---
Author Organization [facility] Address [address] [place] [address] Care Team Providers Care Coat Joiner Name Role Phone Chuckie Chavira MD, Sebastian Grace Primary Care Provid er Reason for Visit * Reason Comments SLOW HEART RATE * Auth/Cert Specialty Diagnoses / Procedures Referred By Bernardino t Referred To Contact Diagnoses Shock (HCC) Referral ID Status Reason Start Date Expiration Date Visits Re quested Visits Authorized [id number] 1 1 Encounter Details Date Type Department Care Team (Latest Contact Info) Description 2016 8:07 PM CDT - 01/10/2016 6:25 PM CDT Hospital Encounter [facility] 3 Intermediate Care Unit [address] [place] [address] Ingris Ascencio, DO [address] [place] [address] Jatin Peres, DO [address] [facility] [place] [address] Kayleigh Hall, DO [address] [facility] [place] [address] Mally Bales MD [address] [facility] [place] [address] Internal Medicine Discharge Disposition: Home or Self Care Social [...] Sign Reading Time Taken Comments Blood Pressure 128/76 01/10/2016 4:00 PM CDT Pulse 60 01/10/2016 4:00 PM CDT Temperature 36.8 ??C (98.3 ??F) 01/10/2016 3:25 PM CD T Respiratory Rate 20 01/10/2016 4:00 PM CDT Oxygen Saturation 95% 01/10/2016 3:30 AM CDT Inhaled Oxygen Concentration - - Weight 125.2 kg (276 lb 1.6 oz) 01/10/2016 6:41 AM CDT Height 195.6 cm (6' 5 ) 2016 11:5 1 PM CDT Body Mass Index 32.74 2016 11:51 PM CDT documented in this [...] by mouth 06/04/2015 vitamin D, ergocalciferol, (DRISDOL) 57321 UNITS capsule Take 50,000 Units by mouth every 7 days 09/13/2020 documented as of this encounter Progress Notes * Carissa Liriano RN - 01/10/2016 6:25 PM CDT Patient discharged prior to case management screening. No needs identified. Carissa Liriano RN/Gravel Wheeler [phone] * Kale Rocha MD - 01/10/2016 6:25 PM CDTNormal event monitor No significant sinus pauses, AV blocks, tachy or keenan arrhythmias No further cardiovascular evaluation or W/u planned at this time Further evaluation will be based on patient symptoms Pl call pt with results RUCTOR OF EDUCATION * Tu Main MD - 01/10/2016 5:37 PM CDT EP Attending Inpatient Progress Note HPI: I have seen and examined Luis Daniel Ford independently of LUCHO Huddleston-BC. I agree with the additional details provided in her note from today. Briefly, Mr. Ford is a very pleasant 61 y.o. man with a history of HTN, DM and thyroid disease. He was admitted with sudden onset arm pain with associated weakness and difficulty with cognition. He was noted to be bradycardic and had near syncope after having an IV started. Physical Exam BP 128/76 Pulse 60 Temp 98.3 ??F Resp 20 Wt 276 lb 1.6 oz (125.2 kg) BMI 32.74 kg/m2 General: Awake, alert, NAD Head & Eyes: AT/NC, Equal pupils bilaterally, EOMI, conjunctiva clear ENT: Oropharynx clear Cardiac: Regular, normal S1/S2, no m/r/g, no edema Lungs: Unlabored breathing, CTA-B Muskuloskeletal: BLE normal to inspection and palpation Skin: Warm, dry, no visible discoloration Echo: Normal LVEF, no significant valve disease Assessment & Plan: 1. Near syncope 2. Bradycardia 3. Atypical chest pain 4. DM 5. HTN 30 day event monitor Outpatient stress test Tu Main MD, FAC, [facility] Clinical Cardiac Electrophysiology (phone) (fax) [employer]UCATION * Kale Rocha MD - 01/10/2016 5:08 PM CDT [facility] Progress Note Admit Date: 2016 8:07 PM Hospital Day: 2 PCP: Sebastian Noguera MD Patient seen and examined Follow up visit for bradycardia/syncope Chart reviewed Symptoms / Clinical course / Events Patient denies chest pain or shortness of breath No significant Cardiovascular events overnight. Data Vitals: 01/10/16 1400 01/10/16 1525 01/10/16 1526 01/10/16 1600 BP: 150/86 143/70 128/76 Pulse: 65 60 Resp: 16 20 Temp: 98.3 ??F SpO2: Weight: Intake/Output Summary (Last 24 hours) at 01/10/16 1708 Last data filed at 01/10/16 1513 Gross per 24 hour Intake 1100 ml Output 0 ml Net 1100 ml Recent Labs Component Name 01/10/16 03201/08/162009 WBC 6.8 11.9* HGB 13.9 15.3 HCT 39.3 43.9 PLTCOUNT 171 269 Recent Labs Component Name 01/10/16 03201/08/162009 SODIUM 134* 136 POTASSIUM 4.0 3.5 CHLORIDE 103 99 CO2 25 28 BUN 15 15 CREATININE 0.87 1.28 GLUCOSE 328* 176* CALCIUM 8.4* 8.6 No results for input(s): PTT in the last 91967 hours. No results for input(s): PT in the last 87738 hours. No results for input(s): INR in the last 37292 hours. Recent Labs Component Name 01/08/162009 NTPROBNP 25.0 Recent Labs Component Name 01/09/16 0333 01/09/16 0030 01/08/162009 TROPONIN <0.015 <0.015 <0.015 No results for input(s): CHOL, TRIG, HDL, LDLCALC in the last 43263 hours. Recent Labs Component Name 01/08/162009 ALBUMIN 3.9 ALKPHOS 83 ALT 20 AST 10 TBIL 0.5 TPROT 7.9 No results for input(s): MAGMGDL in the last 95669 hours. Recent Labs Component Name 01/08/162009 TSH 11.9* No results for input(s): T3FREE in the last 19114 hours. No results for input(s): N2JMEGA in the last 06631 hours. Recent Labs Component Name 01/08/162009 NTPROBNP 25.0 Radiology Meds MEDICATIONS FOR CURRENT ENCOUNTER: ?? SCHEDULED MEDICATIONS: ?? insulin aspart (NovoLOG) pen 0-18 Units, Subcutaneous, TID WC ?? insulin aspart (NovoLOG) pen 0-7 Units, Subcutaneous, AT BEDTIME ?? insulin detemir (LEVEMIR) pen 12 Units, Subcutaneous, BID ?? levothyroxine (SYNTHROID) tablet 125 mcg, Oral, QDAY AT 0600 ?? lisinopril (PRINIVIL; ZESTRIL) tablet 10 mg, Oral, QDAY ?? [COMPLETED] aspirin (ASPIRIN) tablet 325 mg, Oral, Once ?? [COMPLETED] perflutren Lipid Microsphere (DEFINITY) injection SUSP 1.5 mL, Intravenous, intra-Procedure once ?? CONTINUOUS MEDICATIONS: ?? 0.9% NaCl infusion, Intravenous, Continuous ?? PRN MEDICATIONS: ?? Or ?? Or ?? dextrose injection 12.5-25 g, Intravenous, PRN ?? glucagon (GLUCAGEN) injection 1 mg, Intramuscular, PRN ?? glucose (Diabetic Use) 40 % oral gel, Oral, PRN No Known Allergies Review of Systems Pertinent items are noted in HPI Exam VS as above Neck: No JVD. No carotid Bruit Chest: clear to auscultation. No adventitious sounds Cardiovascular: regular rate, rhythm, normal S1 and S2, without murmurs, rubs or gallops Abdomen: soft without mass, non-tender, with normal bowel sounds Extremities: no clubbing, cyanosis or edema Skin: Warm Neuro/Psych: alert, cooperative, no distress Readmit Risk Score Total: 9 Assessment / Recommendations Bradycardia /associated hypotension Unclear if its a primary event vs vagal mediated bradycardia (pt reports severe pain in both arms prior to bradycardic episode) no recurrent episodes of bradycardia since admission. Continue to observe on telemetry. Check echocardiogram today 30 day event monitor to guide further management. Dr Main to evaluate patient as well ?? History of hypertension. Back on lisinopril. Blood pressure well controlled. ?? type 2 diabetes. ?? Hypothyroidism - on thyroid supplements Doubt Hypothyroidism is the cause for his bradycardia. ?? Management plans and Care d/w patient and patient's Thanks Kale Gordon MD, FACP, FACC Interventional Cardiology [address], [address] [facility] [address] * Paige Schmid RN - 01/10/2016 3:41 PM CDT Case Management Initial Assessment Case Management screen completed, welcome letter given. Met with; Patient was out of the room, walking in hallways with . Discussed plan of care with RN. Family Support (name and phone): Extended Emergency Contact Information Primary Emergency Contact: AngieIwona maldonado Address: [address] [place] [address] [place] [address] [facility] Mobile Relation: Spouse Anticipated Discharge Date: Anticipated Discharge Date: 01/10/16 Anticipated level of care / disposition at discharge: Home Prior Level of Functioning: RN reports that patient is independent with mobility. Equipment at Home: Additional Equipment needed at home (does not have at home now): PCP: Sebastian Noguera MD If no PCP, action taken: Pharmacy benefit: No SW Referral: no Readmission Risk Score: Readmit Risk Score Total: 9 If there is no score indicated, this patient has yet to be assessed for Readmission Risk. If patient requires HHC at discharge, he/she requests: n/a Transportation at discharge: Family Transportation to MD appointments: Comments: Attempted to meet with patient to complete admission assessment. Per RN, patient was ambulating in halls with and had been away from room for at least 20 minutes. RN reports that plan if for patient to have ECHO today and then discharge home with 30 day event monitor. Left welcome letter with contact information in room. Instructed RN to call case management with any needs. CM to continue go available for any transition plan issues. Gravel Wheeler Name/Phone number: MELANI Riley, [facility], RN [phone] * Lorin Yan RN - 01/10/2016 3:18 PM CDT Shift Summary: No episodes of bradycardia since before admission. NSR 50-70s, denies chest pain, discomfort, or sob. Event monitor placed per cardiology, echo complete. Dr. Main will see pt and he can be discharged this afternoon. * Wendy Morejon RDCS - 01/10/2016 2:38 PM CDT Echo w/Contrast Completed. * Mally Bales MD - 01/10/2016 1:33 PM CDT Daily Hospitalist Progress Note Admit Date: 2016 8:07 PM Hospital Day: 2 Attending: Mally Bales MD Code Status: Full Code Clinical Course 61 yo WM w/ pmh DM II, htn, hypothyroidism admitted after an episode of unresponsiveness. EMS foundhim to be hypotensive and bradycardic (HR 30s). Last 24 hours patietn feeling great at time of exam. No cp or sob. No abd pain or n/v. Hoping to go home. Echo just done. Reports has been taking levothyroxine at home, takes 100mcg. Doesn't miss doses. Tele - sinus keenan, sinus arrhythmia Medications insulin aspart (NovoLOG) pen 0-18 Units, Subcutaneous, TID WC insulin aspart (NovoLOG) pen 0-7 Units, Subcutaneous, AT BEDTIME insulin detemir (LEVEMIR) pen 12 Units, Subcutaneous, BID levothyroxine (SYNTHROID) tablet 125 mcg, Oral, QDAY AT 0600 0.9% NaCl infusion, Intravenous, Continuous Or Or dextrose injection 12.5-25 g, Intravenous, PRN glucagon (GLUCAGEN) injection 1 mg, Intramuscular, PRN glucose (Diabetic Use) 40 % oral gel, Oral, PRN Exam Height: 195.6 cm (6' 5 ) Body mass index is 32.74 kg/(m^2). -2.449 kg (-5 lb 6.4 oz) Weight: 127.7 kg (281 lb 8 oz) Temp (24hrs), Av ??F, Min:97.8 ??F, Max:98.1 ??F Intake/Output Summary (Last 24 hours) at 01/10/16 1139 Last data filed at 01/10/16 1003 Gross per 24 hour Intake 980 ml Output 600 ml Net 380 ml Vitals: 01/10/16 0331 01/10/16 0400 01/10/16 0641 01/10/16 0800 BP: 139/77 Pulse: 58 Resp: 22 Temp: 98.1 ??F 97.8 ??F SpO2: Weight: 125.2 kg (276 lb 1.6 oz) Gen: alert, cooperative, no acute distress HEENT: atraumatic, normocephalic CV: regular rate and rhythm, S1S2 normal, no murmurs, gallops or rubs, no jugular venous distension Pulm: clear to auscultation bilateral, equal air entry bilateral, no wheeze, rhonchi or rales Abd: non-tender, non-distended, normoactive bowel sounds x4 quadrants, no hepatosplenomegaly Ext: no cyanosis, peripheral pulses 2+/4, no edema Neuro: alert & oriented to person, place and time, no gross deficit noted Skin: no rash, petechiae or bruising Psych: normal affect and thought process, alert, coherent, judgement and insight intact Data Recent Labs Component Name 01/10/16 0327 01/08/162009 WBC 6.8 11.9* RBC 4.63 5.19 HGB 13.9 15.3 HCT 39.3 43.9 MCV 84.9 84.6 MCHC 35.4 34.9 RDWCV 12.2 12.0* PLTCOUNT 171 269 NEUTPCT 55.2 54.9 LYMPHPCT 26.8 30.4 MONOCYTPCT 6.2 6.8 EOSINPCT 9.2* 6.1* BASOPHILPCT 1.6 1.0 GRANSIMMPCT 1.0 0.8 LYMPHABS 1.81 3.62 MONOCYTABS 0.42 0.81 EOSINABS 0.62* 0.72* BASOABS 0.11* 0.12* IMMGRANSABS 0.07* 0.10* NRBCAUTO 0 0 Recent Labs Component Name 01/10/16 0327 01/08/162009 SODIUM 134* 136 POTASSIUM 4.0 3.5 CHLORIDE 103 99 CO2 25 28 BUN 15 15 CREATININE 0.87 1.28 GLUCOSE 328* 176* CALCIUM 8.4* 8.6 ALBUMIN - 3.9 ALKPHOS - 83 ALT - 20 AST - 10 TBIL - 0.5 TPROT - 7.9 EGFR >60 57* ANIONGAP 6 9 Recent Labs Component Name 01/08/162009 TSH 11.9* Imaging CT HEAD NON CONTRAST [[id number]] Collected: 01/08/162055 ?? Order Status: Completed Updated: 01/08/162099 ?? Narrative: ? EXAMINATION: CT BRAIN WITHOUT CONTRAST. Indication: Shock, unspecified. ??Dizziness and giddiness. ??Hypotension. Technique: Noncontrast axial images of the brain were performed at the time of the patient's presentation. ??This is a screening study. Additional coronal reformatted images were performed with the CT scanner software. ??This CT report was transcribed with a computerized speech recognition system. ??In an effort to expedite patient care, it has not been adjusted for typographical, grammatical or syntax problems by a trained rn medical surgical. Findings: ??The axial bone window images show soft tissue thickening in the maxillary sinuses worse on the right. ??There is also small area of rounded soft tissue thickening in the left sphenoid sinus. ??There is no intracranial mass-effect or midline shift identified. The ventricular system is normal in size for the stated age. No focal intraparenchymal hemorrhage can be identified. ??If the patient's symptoms persist or worsen, a followup brain CT or a scheduled brain MRI may be considered for further evaluation. ?? Impression: ? No acute findings in the brain. ??Noncontrast brain CT. Please see above. Sinus disease as noted above. XR CHEST 1VW PORTABLE [[id number]] Collected: 01/08/162114 ?? Order Status: Completed Updated: 01/08/162118 ?? Narrative: ? PORTABLE AP CHEST INDICATION: Shock, unspecified. ??Bradycardia.. COMPARISON: October 05, 2007 FINDINGS: A single portable view of the chest shows the lungs to be incompletely expanded. ??No confluent infiltrates can be identified but increased density is present in the right lower lobe.. ??The heart size is normal. ?? Impression: ? Incomplete inspiration with suspected hypoventilatory changes in the right lower lobe. This examination uses the nonstandard portable technique. Micro none Assessment and Plan Today - tele, f/u cardiology Bradycardia/tachycardia LOC - presumably 2/2 bradycardia and hypotension DM II Htn Hypothyroidism, uncontrolled. Could be contributing to bradycardia Hyponatremia - admitted to ICU -consult cardiology - plans echo, tele, 30 day event monitor at d/c, consult EP for possible PM -tele -hold lisinopril --> restart now that BP trending back up -levemir 12 units qHS -- change to home regimen of bid -synthroid increased to 125mcg -ppx: SCD Pending echo findings and formal EP input, will plan tentatively for dc home today, with event monitor. * Candy Chen RN - 01/10/2016 5:57 AM CDT Shift summary: VSS see flowsheet, NSR/sinus keenan 50-70s, A&Ox4, voids adequate amount, BS 331 novolog and levemir given see MAR, stayed overnight. Full assessment per flowsheet. * Kayleigh Butterfield, DO - 01/09/2016 4:48 PM CDT Daily Hospitalist Progress Note Admit Date: 2016 8:07 PM Hospital Day: 1 Attending: Kayleigh Butterfield DO Code Status: Full Code Clinical Course 61 yo WM w/ pmh DM II, htn, hypothyroidism admitted after an episode of unresponsiveness. EMS foundhim to be hypotensive and bradycardic (HR 30s). Last 24 hours Feels well, no complaints. Denies cp, sob, cough, abd pain, n/v/d/c, palpitations. Short episode of ST up to 150s early this AM. Medications insulin aspart (NovoLOG) pen 0-18 Units, Subcutaneous, TID WC insulin aspart (NovoLOG) pen 0-7 Units, Subcutaneous, AT BEDTIME insulin detemir (LEVEMIR) pen 12 Units, Subcutaneous, AT BEDTIME levothyroxine (SYNTHROID) tablet 125 mcg, Oral, QDAY AT 0600 [COMPLETED] 0.9% NaCl IV Bolus, Intravenous, Now [] 0.9% NaCl IV Bolus, Intravenous, Now [] 0.9% NaCl IV Bolus, Intravenous, Once 0.9% NaCl infusion, Intravenous, Continuous Or Or dextrose injection 12.5-25 g, Intravenous, PRN glucagon (GLUCAGEN) injection 1 mg, Intramuscular, PRN glucose (Diabetic Use) 40 % oral gel, Oral, PRN Exam Height: 195.6 cm (6' 5 ) Body mass index is 33.38 kg/(m^2). Unable to calculate weight change. Weight: 127.7 kg (281 lb 8 oz) Temp (24hrs), Av.3 ??F, Min:97.9 ??F, Max:98.9 ??F Intake/Output Summary (Last 24 hours) at 01/09/16 1649 Last data filed at 01/09/16 1348 Gross per 24 hour Intake: 1760.5 ml Output: 1800 ml Net : -39.5 ml Vitals: 01/09/16 1400 01/09/16 1500 01/09/16 1530 01/09/16 1600 BP: 122/65 124/70 133/72 Pulse: 64 60 55 61 Resp: 18 21 21 20 Temp: SpO2: Weight: Gen: alert, cooperative, no acute distress HEENT: atraumatic, normocephalic, extraocular muscles intake bilateral, nasal and oropharyngeal mucosa moist without erythema, no thyromegaly, no submandibular, cervical or supraclavicular lymphadenopathy CV: regular rate and rhythm, S1S2 normal, no murmurs, gallops or rubs, no jugular venous distension Pulm: clear to auscultation bilateral, equal air entry bilateral, no wheeze, rhonchi or rales Abd: non-tender, non-distended, normoactive bowel sounds x4 quadrants, no hepatosplenomegaly Ext: no cyanosis or clubbing, peripheral pulses 2+/4, no edema Neuro: alert & oriented to person, place and time, no gross deficit noted Skin: no rash, petechiae or bruising Psych: normal affect and thought process, alert, coherent, judgement and insight intact Data Recent Labs Component Name 01/08/162009 WBC 11.9* RBC 5.19 HGB 15.3 HCT 43.9 MCV 84.6 MCHC 34.9 RDWCV 12.0* PLTCOUNT 269 NEUTPCT 54.9 LYMPHPCT 30.4 MONOCYTPCT 6.8 EOSINPCT 6.1* BASOPHILPCT 1.0 GRANSIMMPCT 0.8 LYMPHABS 3.62 MONOCYTABS 0.81 EOSINABS 0.72* BASOABS 0.12* IMMGRANSABS 0.10* NRBCAUTO 0 Recent Labs Component Name 01/08/162009 SODIUM 136 POTASSIUM 3.5 CHLORIDE 99 CO2 28 BUN 15 CREATININE 1.28 GLUCOSE 176* CALCIUM 8.6 ALBUMIN 3.9 ALKPHOS 83 ALT 20 AST 10 TBIL 0.5 TPROT 7.9 EGFR 57* ANIONGAP 9 Recent Labs Component Name 01/08/162009 TSH 11.9* Imaging CT HEAD NON CONTRAST [[id number]] Collected: 01/08/162055 ?? Order Status: Completed Updated: 01/08/162099 ?? Narrative: ? EXAMINATION: CT BRAIN WITHOUT CONTRAST. Indication: Shock, unspecified. ??Dizziness and giddiness. ??Hypotension. Technique: Noncontrast axial images of the brain were performed at the time of the patient's presentation. ??This is a screening study. Additional coronal reformatted images were performed with the CT scanner software. ??This CT report was transcribed with a computerized speech recognition system. ??In an effort to expedite patient care, it has not been adjusted for typographical, grammatical or syntax problems by a trained rn medical surgical. Findings: ??The axial bone window images show soft tissue thickening in the maxillary sinuses worse on the right. ??There is also small area of rounded soft tissue thickening in the left sphenoid sinus. ??There is no intracranial mass-effect or midline shift identified. The ventricular system is normal in size for the stated age. No focal intraparenchymal hemorrhage can be identified. ??If the patient's symptoms persist or worsen, a followup brain CT or a scheduled brain MRI may be considered for further evaluation. ?? Impression: ? No acute findings in the brain. ??Noncontrast brain CT. Please see above. Sinus disease as noted above. XR CHEST 1VW PORTABLE [[id number]] Collected: 01/08/162114 ?? Order Status: Completed Updated: 01/08/162118 ?? Narrative: ? PORTABLE AP CHEST INDICATION: Shock, unspecified. ??Bradycardia.. COMPARISON: October 05, 2007 FINDINGS: A single portable view of the chest shows the lungs to be incompletely expanded. ??No confluent infiltrates can be identified but increased density is present in the right lower lobe.. ??The heart size is normal. ?? Impression: ? Incomplete inspiration with suspected hypoventilatory changes in the right lower lobe. This examination uses the nonstandard portable technique. Micro none Assessment and Plan Today - tele, f/u cardiology Bradycardia/tachycardia LOC - presumably 2/2 bradycardia and hypotension DM II Htn Hypothyroidism - TSH elevated however I doubt that is the cause -consult cardiology - plans echo, tele, 30 day event monitor at d/c, consult EP for possible PM -tele -hold lisinopril -levemir 12 units qHS -synthroid -ppx: SCD Kayleigh Butterfield DO Ascom - [id number] 01/09/2016 Due to medical issues in the assessment and plan, continued hospitalization will be required. * Wendy Fernandez, RN - 01/09/2016 12:28 AM CDT Images from the original note were not included. Wendy Fernandez, RN Registered Nurse Signed Brief Op Note Date of Service: 01/09/2016 12:28 AM Note Created: 01/09/2016 12:28 AM []Manual[]Template []Copied Patient admission from ED. Per report patient was found at home by EMS with heart rate in the 30's and hypotensive. Upon arrival to ED patient was given 2- 3L NS bolus and had improved BP and heart rate in 60s. Patient presents with NSR / Sinus Keenan in the 50s-60s with BP of 110/63. Patient denies chest pain or pain in general. Patient placed on telemetry with cardiology consult pending. ? documented in this encounter H&P Notes * Jatin Peres DO - 2016 11:[address] [facility] Exchange: History and Physical Date of Admission: 2016 Patient's Primary Care Physician: Sebastian Noguera MD Name: Luis Daniel Ford Age: 60 y.o. Race: Sex: male Chief Complaint unresponsive History of Present Illness 61 yo male with pmh with DM II, HTN, presented after unresponsive episode today. Patient was driving with his . They were stopped in a parking lot when his symptoms began. He got a cramp in his left arm but the states the right arm. Started shaking his arms, got out of the car to shake outhis arms. Sat down in the car. states he fell into the car and hit his head on seat. He does not remember that part. Nauseated and sweaty but not shaky. Thought his blood sugar was low. Pale. Hetold her to call 911. Unclear if he ever lost consciousness. He claims to remember all the events clearly. reports that he wasn't speaking sentences or responding well. Denies CP, SOB, vomiting, abdominal pain, fevers/chills, change in bowel or bladder. Has old raquet ball injuries in his armsand he thought those were acting up. EMS found him to be hypotensive with HR 30s BG was 189. He wasgiven atropine and brought to the ER. States he feels fine now and wants to go home. Lactic acid 3.1. TSH 11.9. WBC 11.9. CXR showing Incomplete inspiration with suspected hypoventilatory changes in the right lower lobe CT head with no acute findings. Past Medical History Diagnosis Date ??? Diabetes ??? Hypertension No past surgical history on file. Recent meniscus surgery No family history on file. Mom with colon cancer, pancreatic cancer Dad had lymphoma Lives with Retired. Worked at [employer] Social History Occupational History ??? Not on file. Social History Main Topics ??? Smoking status: Never Smoker ??? Smokeless tobacco: Not on file ??? Alcohol use: No ??? Drug use: No ??? Sexual activity: Not on file Prescriptions Prior to Admission Medication Sig Dispense Refill ??? LISINOPRIL PO ??? Insulin Aspart (NOVOLOG SC) MEDICATIONS FOR CURRENT ENCOUNTER: ?? SCHEDULED MEDICATIONS: ?? 0.9% NaCl IV Bolus, Intravenous, Now ?? 0.9% NaCl IV Bolus, Intravenous, Once ?? [COMPLETED] 0.9% NaCl IV Bolus, Intravenous, Now ?? CONTINUOUS MEDICATIONS: ?? PRN MEDICATIONS: ?? No Known Allergies Review of Systems A comprehensive 12 point review of systems was negative except as described in HPI and below.Reviewof Systems Constitutional: Negative for chills, fever and malaise/fatigue. HENT: Negative for congestion, hearing loss, nosebleeds and sore throat. Eyes: Negative for blurred vision and double vision. Respiratory: Negative for cough, sputum production, shortness of breath and wheezing. Cardiovascular: Negative for chest pain, palpitations, orthopnea, claudication and leg swelling. Gastrointestinal: Negative for abdominal pain, blood in stool, constipation, diarrhea, heartburn, nausea and vomiting. Genitourinary: Negative for dysuria, frequency, hematuria and urgency. Musculoskeletal: Negative for back pain, myalgias and neck pain. Skin: Negative for rash. Neurological: Negative for dizziness, tingling, tremors, speech change, seizures, weakness and headaches. Endo/Heme/Allergies: Does not bruise/bleed easily. Psychiatric/Behavioral: Negative for depression. The patient is not nervous/anxious. Exam Vitals: 01/08/16 2200 01/08/16 2215 01/08/16 2230 01/08/16 2245 BP: 105/59 109/65 106/63 108/60 Pulse: 66 63 66 63 Resp: 16 16 18 15 Temp: SpO2: 99% 100% 99% 100% General appearance: alert, cooperative, no distress Head: Normocephalic, without trauma Eyes: sclera and conjunctiva clear, EOMI and PERRL, lids normal Ears: hearing intact to voice Nose: nares open; Throat: no mucous membrane abnormalities Neck: no JVD; supple; trachea midline Nodes: no cervical or supraclavicular adenopathy Back: no deformity or tenderness Chest: no tenderness Lungs: breath sounds normal and symmetric; no rales or wheezes Heart: regular rhythm, normal S1 and S2, without murmurs, gallops or rubs Abdomen: soft without mass, no tenderness, with normal bowel sounds, no Hepatosplenomegaly Extremities: no clubbing, cyanosis or edema Circulation: radial, and dorsalis pedis pulses are intact and symmetrical, Skin: no rashes or other abnormalities are noted Neurologic: mental status normal; alert and oriented X 3; cranial nerves II - XII are grossly intact, pt moves all 4 ext. Data Recent Results (from the past 24 hour(s)) CBC W AUTO DIFFERENTIAL Collection Time: 01/08/16 8:10 PM Result Value Ref Range WBC 11.9 (H) 4.4 - 10.7 x10E9/L WBC Corrected x10E9/L RBC 5.19 3.80 - 5.40 x10E12/L Hgb 15.3 12.0 - 17.6 gm/dL HCT 43.9 35.2 - 51.7 % MCV 84.6 80.7 - 98.3 fl MCH 29.5 26.7 - 34.0 pg MCHC 34.9 30.8 - 35.9 gm/dL Plt Ct 269 153 - 416 x10E9/L RDW-CV 12.0 (L) 12.1 - 14.9 % MPV 9.9 9.4 - 12.9 fl Neutro 54.9 44.0 - 73.0 % Lymph 30.4 20.0 - 43.0 % Surry 6.8 5.0 - 13.0 % Eos 6.1 (H) 0.0 - 6.0 % Baso 1.0 0.0 - 2.0 % Immature Grans 0.8 0 - 1 % Neutro Abs 6.53 2.01 - 7.14 x10E9/L Lymph Abs 3.62 1.07 - 3.94 x10E9/L Surry Abs 0.81 0.26 - 1.07 x10E9/L Eosin Abs 0.72 (H) 0 - 0.47 x10E9/L Baso Abs 0.12 (H) 0 - 0.08 x10E9/L Immature Grans (Abs) 0.10 (H) 0.00 - 0.06 x10E9/L NRBC Auto 0 /100 WBC COMPREHENSIVE METABOLIC PANEL Collection Time: 01/08/16 8:10 PM Result Value Ref Range Glucose 176 (H) 74 - 106 mg/dL Sodium 136 136 - 145 mmol/L Potassium 3.5 3.5 - 5.1 mmol/L Chloride 99 98 - 107 mmol/L CO2 28 22 - 31 mmol/L Calcium 8.6 8.5 - 10.1 mg/dL Anion Gap 9 5 - 20 mmol/L BUN 15 7 - 21 mg/dL Creatinine 1.28 0.50 - 1.30 mg/dL Alk Phos 83 38 - 126 U/L ALT/SGPT 20 13 - 61 U/L AST/SGOT 10 5 - 40 U/L Protein Total 7.9 6.4 - 8.2 gm/dL Albumin 3.9 3.4 - 5.0 gm/dL Bili Total 0.5 0.2 - 1.0 mg/dL eGFR MDRD 57 (L) >60 mL/min/1.73m2 eGFR MDRD AFR AMR >60 >60 mL/min/1.73m2 ALCOHOL ETHYL BLOOD Collection Time: 01/08/16 8:10 PM Result Value Ref Range Ethanol <3 <10 mg/dL Ethanol Calc <0.100 gm/dL LACTIC ACID BLOOD Collection Time: 01/08/16 8:10 PM Result Value Ref Range Lactic Acid 3.1 (H) 0.7 - 2.1 mmol/L TROPONIN I Collection Time: 01/08/16 8:10 PM Result Value Ref Range Troponin I <0.015 0.000 - 0.049 ng/mL TSH Collection Time: 01/08/16 8:10 PM Result Value Ref Range TSH 11.9 (H) 0.358 - 3.740 uIU/mL NT-PRO BNP Collection Time: 01/08/16 8:10 PM Result Value Ref Range NT-proBNP pg/mL 25.0 <300.0 pg/mL BLOOD GASES ART Collection Time: 01/08/16 8:24 PM Result Value Ref Range pH Arterial 7.41 7.35 - 7.45 pH PCO2 Arterial 38 35 - 45 mm hg PO2 Arterial 77 (L) 80 - 100 mm hg HCO3 Arterial 23 22 - 26 mmol/L BE Arterial -1.1 -2.0 - 2.0 mmol/L O2 Sat Arterial 96 90 - 100 % Hgb ART 14.3 14.0 - 16.0 gm/dL COHgb ART 0.5 0.0 - 2.5 % MetHgb ART 0.1 0.0 - 2.0 % O2Hgb ART 95 % Mode Room Air Sample Site R Radial Sample Type Arterial [employer]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 SALEEM SPENCER URINALYSIS ROUTINE W/REFLEX TO CULTURE Collection Time: 01/08/16 11:22 PM Result Value Ref Range Color UA Yellow Straw, Yellow, Dark Yellow Clarity UA Clear Specific [place] UA >1.030 (H) 1.005 - 1.030 pH UA 5.5 5.0 - 8.0 pH Protein UA 1+ (Abnormal) Negative Blood UA Negative Negative Leukocyte UA Negative Negative Nitrite UA Negative Negative Glucose UA 3+ (Abnormal) Negative Ketone UA Trace (Abnormal) Negative Bili UA Negative Negative Urobilinogen UA 0.2 0.1 - 1.0 EU/dL WBC UA Auto 0-2 0-2, 2-5 # /hpf RBC UA Auto 2-5 0-2, 2-5 # /hpf Epithelial Cell UA Auto 0-2 0-2, 2-5 # /hpf Hyaline Casts UA Auto 5-10 (Abnormal) 0 - 2 #/lpf Reflex Status Culture not indicated DRUG SCREEN TOX URINE PANEL Collection Time: 01/08/16 11:22 PM Result Value Ref Range Amphetamines Screen Urine Not Detected Not Detected Barbiturates Screen Urine Not Detected Not Detected Benzodiazepines Screen Urine Not Detected Not Detected Cannabinoids Screen Urine Not Detected Not Detected Cocaine Screen Urine Not Detected Not Detected Methadone Screen Urine Not Detected Not Detected Opiates Screen Urine Not Detected Not Detected Phencyclidine Screen Urine Not Detected Not Detected There are no active hospital problems to display for this patient. Assessment Unresponsive episode Bradycardia Hypotension Hypothyroidism DM II H/o HTN DVT and GI prophylaxis Plan Consult cardiology Place on SSI and and monitor blood glucose. Increase levothyroxine. Monitor on telemetry I Certify / Attest The patient is admitted with a diagnosis or diagnoses of : unresponsive Current medical needs include Inpt admission for a stay expected to be greater than 2 midnights. The patient has the following complex medical factors: Bradycardia Hypotension Hypothyroidism DM II H/o HTN Please forward a copy of this H&P to the patients Primary Care Physician: Sebastian Noguera MD [address] [place] [address] documented in this encounter Procedure Notes * Wendy Moulton MD - 01/10/2016 6:25 PM CDTAssociated Order(s): EVENT MONITOR [facility] Cardiology Department EVENT MONITOR PATIENT NAME: LUIS DANIEL FORD MR#: [id number] : 1955 AGE: 60 CSN: [id number] SEX: M ADMIT: 2016 INTERPRETING PHYSICIAN: WENDY MOULTON MD. INDICATION: Bradycardia. FINDINGS: Mr. Ford wore a 30-day event monitor starting on January 10, 2016. During that period of time, there were 2 total transmissions for review. Baseline heart rhythm demonstrated normal sinus rhythm with a rate of 70 beats per minute. Additional recording demonstrated a normal sinus rhythm at a rate of 80 beats per minute. There were no manual activations during the recording. There was no evidence of atrial fibrillation, atrial flutter, wide-complex tachycardia, AV fina blockade, or prolonged pauses. CONCLUSION: Normal 30-day event monitor. WENDY MOULTON MD JLS/DARRELLL /[id number] EVENT MONITOR - [employer] documented in this encounter Consult Notes * Yvonne Sam, RN [facility] - 01/10/2016 1:53 PM CDTAssociated Order(s): IP CONSULT TO ELECTROPHYSIOLOGY CARDIAC ELECTROPHYSIOLOGY INITIAL INPATIENT CONSULTATION Patient Name: Luis Daniel Ford Admit Date: 2016 Primary Care Physician: Sebastian Noguera MD [address] [place] [address] Consult Date: 01/10/2016 Requesting Physician: Aj Chen MD Reason For Consultation: Bradycardia; symptomatic History of Present Illness: Luis Daniel Ford is a 61 year old male whose medical history include HTN, DM (diagnosed 3 years ago) and Hypothyroidism. He was brought to [facility] on 01/08/16 for symptomaticbradycardia and hypotension. Dr. Tu Main has been consulted for Bradycardia. He reports he had been feeling well and was in his usual state of health until the event on 01/08/16. He reports dropping his off at a store and went into another store. Upon returning from the other Store, he was feeling well. Soon after his returned to the car he noticed sudden onset pain from left elbow to area above left wrist. The pain felt like a big old cramp . Within a minute or 2 the pain resolved on the left arm and he experience the same pain to his right elbow with extension to area just above the wrist. This lasted a few minutes.The arm pain was not associated with anyother symptoms. Soon after the pain to right arm, he experienced sudden onset nausea with diaphoresis. Per his spouse, he got out of the car to shake his arm and the symptoms got worse. He reports hehas experienced this arm pain before (bilateral) but never did it migrate from side to side. He reports prior racquetball injury to BUE. He tells me he did not experience nausea or diaphoresis with the arm pain in the past. He asked his to call 911 due to the nausea and diaphoreses. He reports he was also lightheadedand per his spouse, he fell back into the car. Per his spouse, he did not lose consciousness. He reports he could hear the EMS but he could not function . He reports feeling weak all over . He denies history of palpitations, chest pain, SOB. No PND, orthopnea. No history of lightheadedness/dizziness prior to recent event. He denies prior syncope. He reports near syncope during needle sticks forlabs at an Urgent [facility] Center. On arrival of the EMS on 01/08/16, his SBP was found to be in the 70s and his HR in the 30s. He wastreated with Atropine and symptoms improved pretty fast . His blood sugar was reported to be in the 180s. On arrival to the ER, his HR was in the 30s. He had been taking Lisinopril for HTN. He denies reoccurrence of symptoms this admission. Past Medical History: Past Medical History Diagnosis Date ??? Diabetes ??? Hypertension Hypothyroidism Past Surgical History: Right knee surgery due to torn meniscus Family History: Mother-colon cancer, pancreatic cancer Father-Parkinson; lymphoma Two brothers-in good health Social History: History Substance Use Topics ??? Smoking status: Never Smoker ??? Smokeless tobacco: Not on file ??? 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 aspirin (ASPIRIN) tablet 325 mg, Oral, Once ?? insulin aspart (NovoLOG) pen 0-18 Units, Subcutaneous, TID WC ?? insulin aspart (NovoLOG) pen 0-7 Units, Subcutaneous, AT BEDTIME ?? insulin detemir (LEVEMIR) pen 12 Units, Subcutaneous, BID ?? levothyroxine (SYNTHROID) tablet 125 mcg, Oral, QDAY AT 0600 ?? lisinopril (PRINIVIL; ZESTRIL) tablet 10 mg, Oral, QDAY ?? [COMPLETED] perflutren Lipid Microsphere (DEFINITY) injection SUSP 1.5 mL, Intravenous, intra-Procedure once ? 0.9% NaCl infusion, Intravenous, Continuous ? Or ?? Or ?? dextrose injection 12.5-25 g, Intravenous, PRN ?? glucagon (GLUCAGEN) injection 1 mg, Intramuscular, PRN ?? glucose (Diabetic Use) 40 % oral gel, Oral, PRN Outpatient Medications: Lisinopril Thyroid med Novolog insulin Aspirin Vitamin Review of Systems A 10 system comprehensive review of systems was otherwise negative except sees well with glasses; right knee arthritis and as noted above. Physical Exam: BP 137/74 Pulse 77 Temp 98 ??F Resp 22 Wt 125.2 kg (276 lb 1.6 oz) BMI 32.74 kg/m2 Intake/Output Summary (Last 24 hours) at 01/10/16 1354 Last data filed at 01/10/16 1003 Gross per 24 hour Intake: 860 ml Output: 0 ml Net : 860 ml Weight change: -2.449 kg (-5 lb 6.4 oz) Constitutional: Awake, alert and in no apparent distress Head & Eyes: AT/NC, EOMI, equal pupils bilaterally, conjunctiva clear Ears, nose, mouth, and throat: Normal lips & dentition, oropharynx normal, grossly normal hearing Neck: Trachea midline, no thyromegaly Cardiovascular: Regular, normal S1/S2, no m/r/g/, normal JVP, no edema Respiratory: Unlabored respiration, CTA-B Gastrointestinal: Soft, non-distended, non-tender, no HSM Musculoskeletal: BLE normal to inspection and palpation Skin: Warm, dry, no visible discoloration Psych: Alert and oriented x 3, normal affect Data: Recent Labs Component Name 01/10/1632601/08/162009 WBC 6.8 11.9* HGB 13.9 15.3 HCT 39.3 43.9 PLTCOUNT 171 269 Recent Labs Component Name 01/10/1632601/08/162009 SODIUM 134* 136 POTASSIUM 4.0 3.5 CHLORIDE 103 99 CO2 25 28 BUN 15 15 CREATININE 0.87 1.28 GLUCOSE 328* 176* CALCIUM 8.4* 8.6 ALBUMIN - 3.9 ALKPHOS - 83 ALT - 20 AST - 10 TBIL - 0.5 TPROT - 7.9 EGFR >60 57* No results for input(s): MAGMGDL in the last 40102 hours. Recent Labs Component Name 01/08/162009 TSH 11.9* Recent Labs Component Name 01/09/16 0333 01/09/16 0030 01/08/162009 TROPONIN <0.015 <0.015 <0.015 No results for input(s): CKMBNGML in the last 90680 hours. ECG: EKG Interp Final Normal sinus rhythm Normal ECG no prior tracing seen Confirmed by MD INEZ, NOEL Khloe ([id number]) on 01/10/2016 7:55:51 AM QTc 441ms Telemetry: Predominantly sinus bradycardia with HR in the 50s's; intermittent SR. Two episodes of atrial tach versus SVT with HR 120s-150s on 01/09/16. Echo from this admission: Report in process He denies prior stress test or cath ASSESSMENT: 1. Bradycardia; symptomatic 2. Atrial tachycardia versus SVT on tele (01/09/16) 3. Essential HTN 4. DM 5. Hypothyroidism PLAN: Dr. Tu Main will see patient and make recommendations. Thank you for allowing me to participate in the care of this very pleasant patient. Yvonne Sam NP [facility] (phone) (fax) CC: Sebastian Noguera MD [address] [place] [address] [employer] Associated attestation - Tu Main MD - 01/25/2016 6:23 PM INSTRUCTOR OF EDUCATION Agree with note by INES Huddleston below. Please see my note dated 01/10/2016 for additional details. Tu Main MD, [facility], [facility] Clinical Cardiac Electrophysiology (phone) (fax) * Mally Handy RN - 01/10/2016 12:31 PM CDTAssociated Order(s): IP CONSULT TO COPIER TECHNICIAN Diabetes Education: This is a 61 yr old WM with a 3 yr diagnosis of T2DM. He has a glucose meter, and is familiar with the insulin pen. He also sees Dt. Eligio Ferro. No results for input(s): HGBA1C in the last 16570 hours. Past Medical History Diagnosis Date ??? Diabetes ??? Hypertension No past surgical history on file. Prescriptions Prior to Admission Medication Sig Dispense Refill ??? aspirin (ASPIRIN) 325 MG tablet Take 325 mg by mouth ??? insulin detemir (LEVEMIR) pen Inject 12 Units subcutaneously ??? levothyroxine (SYNTHROID) 100 MCG tablet Take 100 mcg by mouth ??? blood glucose (Komar GamesTOUCH ULTRA TEST STRIPS) test strip ??? lisinopril (PRINIVIL; ZESTRIL) 20 MG tablet Take 20 mg by mouth ??? insulin aspart (NOVOLOG FLEXPEN) pen ??? LISINOPRIL PO ??? Insulin Aspart (NOVOLOG SC) ??? vitamin D, ergocalciferol, (DRISDOL) 84222 UNITS capsule Take 50,000 Units by mouth every 7 days ASSESSMENT: A&OX4, sitting up in the bed SR 70s. Discussed and reviewed the following: _x___ [facility] Diabetes Booklet provided _x___ Explanation of diabetes disease process _x___ Halfway Complications/Eye care/Foot care _x___ HbA1c explanation: _x___ Target glucose ranges/MD Communication _x___ Glucose Monitoring: Initial Instruction/Review Meter Type: has a meter at home __na__ Return Demonstration _x___ Hypoglycemia: Causes, symptoms, treatment _x___ Hyperglycemia: Causes, symptoms, treatment _x___ Sick Day Guidelines na____ Oral Medications: Purpose/timing/precautions _x___ Insulin Action Curves _x___ Insulin: Type and current dose: ____ Vial/syringe Return demonstration _x___ Pen device: __x__ Return demonstration _x___ Insulin SubQ site, selection and rotation _x___ Syringe/Needle disposal _x___ Purchase, storage, handling of insulin _x___ Recommend Follow Up Outpatient Diabetes Education Visit (requires MD order) _x___ Diabetes/Cardiac Support Group _x___ Stressed the importance of Exercise/Activity Mally Handy RN, BSN, CDE Inpatient Heart Surgeon [facility] [phone] Office [phone] * Kale Rocha MD - 01/09/2016 9:00 AM CDT [facility] Heart [place] [facility] Cardiology Consultation Date: 01/09/2016 Date of Admission : 2016 Hospital Day: 1 Name : Luis Daniel Ford : 1955 Age : 61 y.o. Sex : male Primary Care Physician : Dr.Jaime Chuckie MD Physician requesting consultation: Kayleigh Raymundo DO Reason for consultation: Bradycardia Thank you very much for the consultation and allowing us to participate in the care of this patient. Patient seen and examined. Chief Complaints / History of Presenting illness Luis Daniel Ford is a pleasant 61 y.o. male with PMHx as listed below including hypertension, type 2 diabetes was admitted to the hospital following an unresponsive episode. Patient reports that he developed bilateral severe cramping pain in his arms when he was parked in a parking lot. He reports pain became markedly intense when he became nauseated sweaty. Reportedly he subsequently briefly lost consciousness. His called 911 and EMS on initial evaluation found him to be bradycardic with a heart rate of 30. He was also noted to be hypotensive with a systolic blood pressure of 70. Symptomsresolved after he received atropine. The patient was brought to [facility] Emergency room and subsequently admitted for further management. He has not had any recurrent episodes of bradycardia since admission. Denies any CP, SOB, PND, orthopnea, palpitations, LE edema or other CV c/o. Cardiology consultation for further management. Past Medical History Diagnosis Date ??? Diabetes ??? Hypertension No past surgical history on file. No Known Allergies No family history on file. History Social History ??? Marital status: Spouse name: N/A ??? Number of children: N/A ??? Years of education: N/A Occupational History ??? Not on file. Social History Main Topics ??? Smoking status: Never Smoker ??? Smokeless tobacco: Not on file ??? Alcohol use: No ??? Drug use: No ??? Sexual activity: Not on file Other Topics Concern ??? Not on file Social History Narrative Review of Symptoms: A complete 14-point review of systems was reviewed with the patient. Pertinent positives and negatives are as noted in the history of presenting illness. All other systems are unremarkable. Subjective: Vitals: 01/09/16 0001 01/09/16 0357 01/09/16 0600 01/09/16 0800 BP: 110/69 126/73 Pulse: 68 Resp: 18 Temp: 98.3 ??F 98.9 ??F 97.9 ??F SpO2: 99% 97% Weight: Intake/Output Summary (Last 24 hours) at 01/09/16 0900 Last data filed at 01/09/16 0843 Gross per 24 hour Intake 220.5 ml Output 800 ml Net -579.5 ml Physical Exam General appearance: alert, cooperative, no distress Eyes: NO conjunctival pallor or icterus ENT: oral mucosa is moist Neck: No JVD. No carotid Bruit. No visual thyroid mass Chest: clear to auscultation. No adventitious sounds Cardiovascular: regular rate, rhythm, normal S1 and S2, without murmurs, rubs or gallops Abdomen: soft without mass, non-tender, with normal bowel sounds Extremities: no clubbing, cyanosis or edema Musculoskeletal: Normal muscle strength, no kyphoscoliosis Skin: Warm, dry, No petichiae Neurological: AOX 3. Normal mood and affect Data Recent Labs Component Name 01/08/162009 WBC 11.9* HGB 15.3 HCT 43.9 PLTCOUNT 269 Recent Labs Component Name 01/08/162009 SODIUM 136 POTASSIUM 3.5 CHLORIDE 99 CO2 28 BUN 15 CREATININE 1.28 GLUCOSE 176* CALCIUM 8.6 Recent Labs Component Name 01/08/162009 NTPROBNP 25.0 Recent Labs Component Name 01/09/16 0333 01/09/16 0030 01/08/162009 TROPONIN <0.015 <0.015 <0.015 No results for input(s): CHOL, TRIG, HDL, LDLCALC in the last 79143 hours. Recent Labs Component Name 01/08/162009 ALBUMIN 3.9 ALKPHOS 83 ALT 20 AST 10 TBIL 0.5 TPROT 7.9 No results for input(s): MAGMGDL in the last 95170 hours. Recent Labs Component Name 01/08/162009 TSH 11.9* No results for input(s): T3FREE in the last 63166 hours. No results for input(s): A0VTEFD in the last 36831 hours. No results for input(s): PTT in the last 05594 hours. No results for input(s): PT in the last 97661 hours. No results for input(s): INR in the last 40216 hours. MEDICATIONS FOR CURRENT ENCOUNTER: ?? SCHEDULED MEDICATIONS: ?? 0.9% NaCl IV Bolus, Intravenous, Once ?? insulin aspart (NovoLOG) pen 0-18 Units, Subcutaneous, TID WC ?? insulin aspart (NovoLOG) pen 0-7 Units, Subcutaneous, AT BEDTIME ?? insulin detemir (LEVEMIR) pen 12 Units, Subcutaneous, AT BEDTIME ?? levothyroxine (SYNTHROID) tablet 125 mcg, Oral, QDAY AT 0600 ?? [COMPLETED] 0.9% NaCl IV Bolus, Intravenous, Now ?? [] 0.9% NaCl IV Bolus, Intravenous, Now ?? CONTINUOUS MEDICATIONS: ?? 0.9% NaCl infusion, Intravenous, Continuous ?? PRN MEDICATIONS: ?? Or ?? Or ?? dextrose injection 12.5-25 g, Intravenous, PRN ?? glucagon (GLUCAGEN) injection 1 mg, Intramuscular, PRN ?? glucose (Diabetic Use) 40 % oral gel, Oral, PRN Cardiographics ECG: normal sinus rhythm No acute ischemic ST-T changes Assessment / Recommendations Bradycardia /associated hypotension unclear if this is a primary event vs vagal mediated bradycardia (pt reports severe pain in both arms prior to bradycardic episode) no recurrent episodes of bradycardia since admission. Continue to observe on telemetry. Check echocardiogram. Would recommend a 30 day event monitor to guide further management. I will also have director marketing communications Dr Main evaluate patient regarding need for pacemaker. History of hypertension. Continue to hold lisinopril for 1 more day type 2 diabetes. Hypothyroidism - on thyroid supplements Doubt Hypothyroidism is the cause for his bradycardia. Management plans and Care d/w patient and patient's RN in detail Thanks Kale Gordon MD, FACP, FACC Interventional Cardiology [facility] Heart [address], [address] [place] [address] documented in this encounter OR Notes * Brief Op Note - Wendy Fernandez RN - 01/09/2016 12:28 AM CDT Patient admission from ED. Per report patient was found at home by EMS with heart rate in the 30's and hypotensive. Upon arrival to ED patient was given 2- 3L NS bolus and had improved BP and heart rate in 60s. Patient presents with NSR / Sinus Keenan in the 50s-60s with BP of 110/63. Patient denies chest pain or pain in general. Patient placed on telemetry with cardiology consult pending. documented in this encounter ED Notes * Willard Bishop RN - 2016 8:35 PM CDT Family at bedside. Patient comfortable at this time. VSS. * Willard Bishop RN - 2016 8:21 PM CDT MD at bedside doing ultrasound of chest. VO for 1000mL NS given at KVO rate. * Justo Sommers Jr., RN - 2016 8:07 PM CDT Bed: 24 Expected date: Expected time: Means of arrival: Comments: [place] SOB Keenan Atropine given * Ingris Ascencio DO - 2016 8:04 PM CDTAssociated Order(s): ED CRITICAL CARE Post-Procedure Diagnose(s): Shock (HCC); Acute encephalopathy Provider contact with the patient: 2016 20:00 Luis Daniel Ford [id number] [facility] EMERGENCY DEPARTMENT History Chief Complaint Patient presents with ??? SLOW HEART RATE HPI Comments: Luis Daniel Ford is a 60 y.o. male presenting to the ED via EMS after episode of bradycardia. 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 He is diabetic and took his Novalog approximately 30 minutes prior to his onset of symptoms. He attributed his symptoms to hypoglycemia and ate an [place] [employer] candy bar with no relief of symptoms. BS was in the 100's for EMS. His HR was in the 30's and BP 77/40 for EMS so they gave 0.5 mg Atropine at approximately 07:53. BP then 105/54 and HR increased into the 80s. Pts symptoms improved. He has remained in the 80's. He remained conscious and Ox4 during transport. Pt was lethargic thr oughout the transportation but would wake to voice. He did complain of mild shortness of breath to EMS and currently reports cramping in his right arm. His only medications are Lisinopril and Novalog. Denies vomiting, diarrhea, or chest pain. He has had no previous episodes similar to this. No hx blood clots or lung problems. He has not had recent prolonged travels. Past Medical History Diagnosis Date ??? Diabetes ??? Hypertension No past surgical history on file. No family history on file. History Social History ??? Marital status: Spouse name: N/A ??? Number of children: N/A ??? Years of education: N/A Occupational History ??? Not on file. Social History Main Topics ??? Smoking status: Never Smoker ??? Smokeless tobacco: Not on file ??? Alcohol use: No ??? Drug use: No ??? Sexual activity: Not on file Other Topics Concern ??? Not on file Social History Narrative ??? No narrative on file Review of Systems Review of Systems Constitutional: Positive for diaphoresis and malaise/fatigue. Negative for chills and fever. HENT: Negative for congestion and sore throat. Eyes: Negative for pain. Respiratory: Positive for shortness of breath. Negative for cough. Cardiovascular: Negative for chest pain. Gastrointestinal: Positive for nausea. Negative for abdominal pain, diarrhea and vomiting. Genitourinary: Negative for dysuria. Musculoskeletal: Positive for myalgias. Negative for back pain. Skin: Negative for rash. Pallor. Neurological: Negative for dizziness, sensory change, focal weakness and loss of consciousness. Physical Exam BP 87/56 Pulse 67 Resp 17 SpO2 99% Physical Exam Constitutional: He appears well-developed and well-nourished. He appears distressed. Asleep, but wakes to voice and holds conversation. HENT: Head: Normocephalic and atraumatic. Eyes: Conjunctivae and EOM are normal. Pupils are equal, round, and reactive to light. Neck: No JVD present. Cardiovascular: Normal rate, regular rhythm, normal heart sounds and intact distal pulses. Exam reveals no gallop and no friction rub. No murmur heard. Pulmonary/Chest: Effort normal and breath sounds normal. No respiratory distress. He has no wheezes. He has no rales. He exhibits no tenderness. Abdominal: Soft. He exhibits no distension and no mass. There is no tenderness. There is no reboundand no guarding. No hernia. Musculoskeletal: He exhibits no edema. Neurological: He is alert. No nystagmus. CN2-12 intact. Sensation intact to touch in all extremities. Full strength proximallyand distally in upper and lower extremities. Clear and fluent speech. Skin: Skin is warm. He is diaphoretic. Psychiatric: He has a normal mood and affect. Nursing note and vitals reviewed. Medications Current Outpatient Prescriptions Medication Sig Dispense Refill ??? LISINOPRIL PO ??? Insulin Aspart (NOVOLOG SC) Procedures Critical Care Performed by: INGRIS ASCENCIO Authorized by: INGRIS ASCENCIO Total critical care time: 35 minutes Critical care time was exclusive of separately billable procedures and treating other patients. Critical care was necessary to treat or prevent imminent or life-threatening deterioration of the following conditions: cardiac failure and circulatory failure. Critical care was time spent personally by me on the following activities: development of treatmentplan with patient or surrogate, discussions with consultants, evaluation of patient's response to treatment, examination of patient, re-evaluation of patient's condition, pulse oximetry, ordering and review of radiographic studies, ordering and review of laboratory studies, ordering and performing treatments and interventions and obtaining history from patient or surrogate. ECG Interpretation ECG Interpretation ECG: Time: 2000 Regular rate of 69. Sinus Rhythm. Normal intervals. No ST abnormalities. T wave inversion in lead III. Rhythm Strip: Sinus rhythm. Rate of 69 Lab Interpretation Oxygen Saturation Interpretation The oxygen saturation level is: 98%. The patient was on Room Air for the saturation measurement. Measurement frequency: Spot Check. Oxygen saturation interpretation is Normal. Intervention(s) used: None. Hospital Encounter on 01/08/16 CBC W AUTO DIFFERENTIAL Result Value Ref Range WBC 11.9 (H) 4.4 - 10.7 x10E9/L WBC Corrected x10E9/L RBC 5.19 3.80 - 5.40 x10E12/L Hgb 15.3 12.0 - 17.6 gm/dL HCT 43.9 35.2 - 51.7 % MCV 84.6 80.7 - 98.3 fl MCH 29.5 26.7 - 34.0 pg MCHC 34.9 30.8 - 35.9 gm/dL Plt Ct 269 153 - 416 x10E9/L RDW-CV 12.0 (L) 12.1 - 14.9 % MPV 9.9 9.4 - 12.9 fl Neutro 54.9 44.0 - 73.0 % Lymph 30.4 20.0 - 43.0 % [place] 6.8 5.0 - 13.0 % Eos 6.1 (H) 0.0 - 6.0 % Baso 1.0 0.0 - 2.0 % Immature Grans 0.8 0 - 1 % Neutro Abs 6.53 2.01 - 7.14 x10E9/L Lymph Abs 3.62 1.07 - 3.94 x10E9/L [place] Abs 0.81 0.26 - 1.07 x10E9/L Eosin Abs 0.72 (H) 0 - 0.47 x10E9/L Baso Abs 0.12 (H) 0 - 0.08 x10E9/L Immature Grans (Abs) 0.10 (H) 0.00 - 0.06 x10E9/L NRBC Auto 0 /100 WBC COMPREHENSIVE METABOLIC PANEL Result Value Ref Range Glucose 176 (H) 74 - 106 mg/dL Sodium 136 136 - 145 mmol/L Potassium 3.5 3.5 - 5.1 mmol/L Chloride 99 98 - 107 mmol/L CO2 28 22 - 31 mmol/L Calcium 8.6 8.5 - 10.1 mg/dL Anion Gap 9 5 - 20 mmol/L BUN 15 7 - 21 mg/dL Creatinine 1.28 0.50 - 1.30 mg/dL Alk Phos 83 38 - 126 U/L ALT/SGPT 20 13 - 61 U/L AST/SGOT 10 5 - 40 U/L Protein Total 7.9 6.4 - 8.2 gm/dL Albumin 3.9 3.4 - 5.0 gm/dL Bili Total 0.5 0.2 - 1.0 mg/dL eGFR MDRD 57 (L) >60 mL/min/1.73m2 eGFR MDRD AFR AMR >60 >60 mL/min/1.73m2 ALCOHOL ETHYL BLOOD Result Value Ref Range Ethanol <3 <10 mg/dL Ethanol Calc <0.100 gm/dL LACTIC ACID BLOOD Result Value Ref Range Lactic Acid 3.1 (H) 0.7 - 2.1 mmol/L TROPONIN I Result Value Ref Range Troponin I <0.015 0.000 - 0.049 ng/mL TSH Result Value Ref Range TSH 11.9 (H) 0.358 - 3.740 uIU/mL URINALYSIS ROUTINE W/REFLEX TO CULTURE Result Value Ref Range Color UA Yellow Straw, Yellow, Dark Yellow Clarity UA Clear Specific [place] UA >1.030 (H) 1.005 - 1.030 pH UA 5.5 5.0 - 8.0 pH Protein UA 1+ (Abnormal) Negative Blood UA Negative Negative Leukocyte UA Negative Negative Nitrite UA Negative Negative Glucose UA 3+ (Abnormal) Negative Ketone UA Trace (Abnormal) Negative Bili UA Negative Negative Urobilinogen UA 0.2 0.1 - 1.0 EU/dL WBC UA Auto 0-2 0-2, 2-5 # /hpf RBC UA Auto 2-5 0-2, 2-5 # /hpf Epithelial Cell UA Auto 0-2 0-2, 2-5 # /hpf Hyaline Casts UA Auto 5-10 (Abnormal) 0 - 2 #/lpf Reflex Status Culture not indicated NT-PRO BNP Result Value Ref Range NT-proBNP pg/mL 25.0 <300.0 pg/mL BLOOD GASES ART Result Value Ref Range pH Arterial 7.41 7.35 - 7.45 pH PCO2 Arterial 38 35 - 45 mm hg PO2 Arterial 77 (L) 80 - 100 mm hg HCO3 Arterial 23 22 - 26 mmol/L BE Arterial -1.1 -2.0 - 2.0 mmol/L O2 Sat Arterial 96 90 - 100 % Hgb ART 14.3 14.0 - 16.0 gm/dL COHgb ART 0.5 0.0 - 2.5 % MetHgb ART 0.1 0.0 - 2.0 % O2Hgb ART 95 % Mode Room Air Sample Site R Radial Sample Type Arterial 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 SALEEM SPENCER XR CHEST 1VW PORTABLE Final Result PORTABLE AP CHEST INDICATION: Shock, unspecified. Bradycardia.. COMPARISON: October 05, 2007 FINDINGS: A single portable view of the chest shows the lungs to be incompletely expanded. No confluent infiltrates can be identified but increased density is present in the right lower lobe.. The heart size is normal. IMPRESSION Incomplete inspiration with suspected hypoventilatory changes in the right lower lobe. This examination uses the nonstandard portable technique. This report was transcribed with a computerized speech recognition system. In an effort to expedite patient care, it has not been adjusted for typographical, grammatical or syntax problems by a trained rn medical surgical. For questions about the report, please contact the Radiology Department. CT HEAD NON CONTRAST Final Result EXAMINATION: CT BRAIN WITHOUT CONTRAST. Indication: Shock, unspecified. Dizziness and giddiness. Hypotension. Technique: Noncontrast axial images of the brain were performed at the time of the patient's presentation. This is a screening study. Additional coronal reformatted images were performed with the CT scanner software. This CT report was transcribed with a computerized speech recognition system. In an effort to expedite patient care, it has not been adjusted for typographical, grammatical or syntax problems by a trained rn medical surgical. Findings: The axial bone window images show soft tissue thickening in the maxillary sinuses worse on the right. There is also small area of rounded soft tissue thickening in the left sphenoid sinus. There is no intracranial mass-effect or midline shift identified. The ventricular system is normal in size for the stated age. No focal intraparenchymal hemorrhage can be identified. If the patient's symptoms persist or worsen, a followup brain CT or a scheduled brain MRI may be considered for further evaluation. IMPRESSION No acute findings in the brain. Noncontrast brain CT. Please see above. Sinus disease as noted above. Progress Notes 0.5 mg Atropine given via EMS. 1 L fluids given in ED. 8:25 PM-Reassessed pt. HR 60s BP 80's systolic. Pt feeling much better. Second liter of fluids to be given. 10:13 PM-Reassessed pt. Updated on lab results and imaging. He is agreeable with admission for further evaluation. Unclear cause of patient's symptoms. Per EMS patient was bradycardic to the 30s and was sinus. I do not have an EKG to confirm this. Possible arrhythmia as cause. Patient requires further evaluation. Patient admitted to intermediate. Patient to have echocardiogram and telemetry monitoring. 10:56 PM- I discussed with Dr. Peres(hospitalist) about all pertinent aspects of the case includingtesting done, medications given, the patient's current condition, my clinical impression and the need for admission for further evaluation and treatment. Agrees to accept the patient at this time. Wehave agreed on an initial plan. Care is transferred to the admitting physician at this time. The patient/family understand and agree with the plan. ED Course ED Course There is no data filed. Medical Decision Making I have reviewed the: Nursing Notes, Vitals. I have interpreted the following results: Labs, 12 Lead EKG, Rhythm Strip, X- Ray, Oxygen Saturation. I have discussed the case with Family/Caregiver, Hospitalist (Dr. Peres). Orders Placed This Encounter ??? ED CRITICAL CARE ??? XR CHEST 1VW PORTABLE ??? CT HEAD NON CONTRAST ??? CBC W AUTO DIFFERENTIAL ??? COMPREHENSIVE METABOLIC PANEL ??? ALCOHOL ETHYL BLOOD ??? LACTIC ACID BLOOD ??? TROPONIN I ??? TROPONIN I ??? TSH ??? URINALYSIS ROUTINE W/REFLEX TO CULTURE ??? NT-PRO BNP ??? DRUG SCREEN TOX URINE PANEL ??? BLOOD GASES ART ??? EKG 12-LEAD ??? 0.9% NaCl IV Bolus ??? 0.9% NaCl IV Bolus ??? 0.9% NaCl IV Bolus Clinical Impression Final diagnoses: Shock (Primary) Acute encephalopathy Bradycardia Elevated lactic acid level Diagnosis: Encounter Diagnoses Name Primary? Shock Yes ??? Acute encephalopathy ??? Bradycardia ??? Elevated lactic acid level Disposition: ED Disposition ED Disposition Condition Comment Admit Patient Class: Inpatient [101] Expected Length of Stay REQUIRED for Inpatient Status: > 2 midnights (may include one prior midnight in this encounter) ADMITTING PROVIDER: JATIN PERES [[id number]] ATTENDING PROVIDER: JATIN PERES [[id number]] Was PCP Contacted?: Call Not Required Diagnosis: Shock [[id number]] Level of Care: INTERMEDIATE/STEP DOWN [12] Scribe Signature and Attestation By signing my name below, I, Kate Quintero, attest that this documentation has been prepared under the direction and in the presence of Ingris Ascencio DO Electronically Signed: Kate Quintero. 2016. Time 8:04 PM ? Provider Signature and Attestation I, Dr. Ingris Ascencio, personally performed the services described in this documentation. All medical record entries made by the scribe were at my direction and in my presence. I have reviewed the chartand agree that the record reflects my personal performance and is accurate and complete. Ingris Ascencio DO * Willard Bishop RN - 2016 8:00 PM CDT EMS reports got call as diabetic, not alert. SOB upon arrival, generalized weakness. novalog 30 minprior. 139 bs at home. Initial heart rate was 30, BP 70/40. Pale, clammy. 18g L AC. Improvement after .5 atropine. documented in this encounter Plan of Treatment Not on file documented as of this encounter Procedures Procedure Name Priority Date/Time Associated Diagnosis Comments EVENT MONITOR Routine 02/15/2016 2:58 PM INSTRUCTOR OF EDUCATION Bradycardia IP CONSULT TO ELECTROPHYSIOLOGY Routine 01/25/2016 6:23 PM INSTRUCTOR OF EDUCATION CARDIAC RHYTHM STRIP ORDER 01/11/2016 10:23 PM CDT CARDIAC EKG ORDER 01/11/2016 10: 06 PM CDT GLUCOSE - POINT OF CARE Routine 01/10/20 16 4:40 PM CDT ECHOCARDIOGRAM 2D WITH DOPPLER Routine 01/10/2016 1:08 PM CDT Bradycardia GLUCOSE - POINT OF CARE Routine 01/10/20 16 12:35 PM CDT GLUCOSE - POINT OF CARE Routine 01/10/20 16 8:44 AM CDT CBC W AUTO DIFFERENTIAL AM Draw 01/10/20 3:27 AM CDT BASIC METABOLIC PANEL (CALCIUM TOTAL) AM Draw 01/10/2016 3:27 AM CDT GLUCOSE - POINT OF CARE Routine 01/09/20 11:57 PM CDT GLUCOSE - POINT OF CARE Routine 01/09/20 16 9:03 PM CDT GLUCOSE - POINT OF CARE Routine 01/09/20 16 5:11 PM CDT GLUCOSE - POINT OF CARE Routine 01/09/20 16 11:43 AM CDT GLUCOSE - POINT OF CARE Routine 01/09/20 16 7:42 AM CDT TROPONIN I Timed 01/09/2016 3:33 AM CDT GLUCOSE - POINT OF CARE Routine 01/09/20 16 12:39 AM CDT TROPONIN I Timed 01/09/2016 12:30 AM CDT ED CRITICAL CARE Routine 2016 11:3 6 PM CDT Shock (HCC) Acute encephalopathy URINALYSIS REFLEX MICROSCOPIC REFLEX CULTURE STAT 2016 11:22 PM CDT URINE DRUG SCREEN IMMUNOASSAY STAT 2016 11:[address] HEAD WO CONTRAST STAT 2016 8 :48 PM CDT Shock (HCC) XR CHEST 1VW PORTABLE STAT 2016 8:24 PM CDT Shock (HCC) BLOOD GASES ARTERIAL STAT 2016 8:24 PM CDT NT-PRO BNP STAT 2016 8:10 PM CDT TROPONIN I STAT 2016 8:10 PM CDT CBC W AUTO DIFFERENTIAL STAT 01/08/20 16 8:10 PM CDT COMPREHENSIVE METABOLIC PANEL STAT 2016 8:10 PM CDT LACTIC ACID BLOOD STAT 2016 8:1 0 PM CDT ALCOHOL ETHYL BLOOD STAT 2016 8 :10 PM CDT TSH STAT 2016 8:10 PM CDT GLUCOSE - POINT OF CARE Routine 01/08/20 16 8:06 PM CDT EKG 12-LEAD STAT 2016 8:01 PM CDT Shock (HCC) documented in this encounter Results * EVENT MONITOR (02/15/2016 2:58 PM INSTRUCTOR OF EDUCATION) Narrative Procedure Note Wendy Moulton MD - 01/10/2016 6:25 PM CDT [facility] Cardiology Department EVENT MONITOR PATIENT NAME: LUIS DANIEL FORD MR#: [id number] : 1955 AGE: 60 CSN: [id number] SEX: M ADMIT: 2016 INTERPRETING PHYSICIAN: WENDY MOULTON MD. INDICATION: Bradycardia. FINDINGS: Mr. Ford wore a 30-day event monitor starting on December. During that period of time, there were 2 total transmissions for review. Baseline heart rhythm demonstrated normal sinus rhythm with a rate of 70beats per minute. Additional recording demonstrated a normal sinus rhythm at arate of 80 beats per minute. There were no manual activations during the recording. There was no evidence of atrial fibrillation, atrial flutter,wide-complex tachycardia, AV fina blockade, or prolonged pauses. CONCLUSION: Normal 30-day event monitor. WENDY MOULTON MD JLS/MODL /[id number] EVENT MONITOR - Kale Rocha MD CARDIAC SERVI HUE ORDERABLES Performing Organization Address City/State/[facility] Co de Phone Number [facility] * IP CONSULT TO ELECTROPHYSIOLOGY (01/25/2016 6:23 PM INSTRUCTOR OF EDUCATION) Narrative Procedure Note David Samantonella Orlelana, RN [facility] - 01/10/2016 1:53 PM CDT CARDIAC ELECTROPHYSIOLOGY INITIAL INPATIENT CONSULTATION Patient Name: Luis Daniel Ford Admit Date: 2016 Primary Care Physician: [place] [id number] [facility] [address] [place] [address] Consult Date: 01/10/2016 Requesting Physician: Aj Chen MD Reason For Consultation: Bradycardia; symptomatic History of Present Illness: Luis Daniel Ford is a 61 year old male whose medical historyinclude HTN, DM (diagnosed 3 years ago) and Hypothyroidism. [facility] symptomatic bradycardia andhypotension. Dr. Tu Main has been consulted for Bradycardia. He reports he had been feeling well and was in his usual state of healthuntil the event on 01/08/16. He reports dropping his off at a storeand went into another store. Upon returning from the other Store, he wasfeeling well. Soon after his returned to the car he noticed suddenonset pain from left elbow to area above left wrist. The pain felt like abig old cramp . Within a minute or 2 the pain resolved on the left arm andhe experience the same pain to his right elbow with extension to area justabove the wrist. This lasted a few minutes.The arm pain was not associatedwith any other symptoms. Soon after the pain to right arm, he experiencedsudden onset nausea with diaphoresis. Per his spouse, he got out of thecar to shake his arm and the symptoms got worse. He reports he hasexperienced this arm pain before (bilateral) but never did it migrate fromside to side. He reports prior racquetball injury to BUE. He tells me hedid not experience nausea or diaphoresis with the arm pain in the past. He asked his to call 911 due to the nausea and diaphoreses. Hereports he was also lightheaded and per his spouse, he fell back into thecar. Per his spouse, he did not lose consciousness. He reports he couldhear the EMS but he could not function . He reports feeling weak allover . He denies history of palpitations, chest pain, SOB. No PND,orthopnea. No history of lightheadedness/dizziness prior to recent event.He denies prior syncope. He reports near syncope during needle sticks forlabs at an Ur[facility]. On arrival of the EMS on 01/08/16, his SBP was found to be in the 70s andhis HR in the 30s. He was treated with Atropine and symptoms improved pretty fast . His blood sugar was reported to be in the 180s. On arrivalto the ER, his HR was in the 30s. He had been taking Lisinopril for HTN.He denies reoccurrence of symptoms this admission. Past Medical History: Past Medical History Diagnosis Date ? ? Diabetes ? ? Hypertension Hypothyroidism Past Surgical History: Right knee surgery due to torn meniscus Family History: Mother-colon cancer, pancreatic cancer Father-Parkinson; lymphoma Two brothers-in good health Social History: History Substance Use Topics ? ? Smoking status: Never Smoker ? ? Smokeless tobacco: Not on file ? ? 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 aspirin (ASPIRIN) tablet 325 mg, Oral, Once ?? insulin aspart (NovoLOG) pen 0-18 Units, Subcutaneous, TID WC ?? insulin aspart (NovoLOG) pen 0-7 Units, Subcutaneous, AT BEDTIME ?? insulin detemir (LEVEMIR) pen 12 Units, Subcutaneous, BID ?? levothyroxine (SYNTHROID) tablet 125 mcg, Oral, QDAY AT 0600 ?? lisinopril (PRINIVIL; ZESTRIL) tablet 10 mg, Oral, QDAY ?? [COMPLETED] perflutren Lipid Microsphere (DEFINITY) injection SUSP 1.5mL, Intravenous, intra-Procedure once ? 0.9% NaCl infusion, Intravenous, Continuous ? Or ?? Or ?? dextrose injection 12.5-25 g, Intravenous, PRN ?? glucagon (GLUCAGEN) injection 1 mg, Intramuscular, PRN ?? glucose (Diabetic Use) 40 % oral gel, Oral, PRN Outpatient Medications: Lisinopril Thyroid med Novolog insulin Aspirin Vitamin Review of Systems A 10 system comprehensive review of systems was otherwise negative exceptsees well with glasses; right knee arthritis and as noted above. Physical Exam: BP 137/74 Pulse 77 Temp 98 ??F Resp 22 Wt 125.2 kg (276 lb 1.6 oz) BMI32.74 kg/m2 Intake/Output Summary (Last 24 hours) at 01/10/16 1354 Last data filed at 01/10/16 1003 Gross per 24 hour Intake: 860 ml Output: 0 ml Net : 860 ml Weight change: -2.449 kg (-5 lb 6.4 oz) Constitutional: Awake, alert and in no apparent distress Head & Eyes: AT/NC, EOMI, equal pupils bilaterally, conjunctiva clear Ears, nose, mouth, and throat: Normal lips & dentition, oropharynx normal,grossly normal hearing Neck: Trachea midline, no thyromegaly Cardiovascular: Regular, normal S1/S2, no m/r/g/, normal JVP, no edema Respiratory: Unlabored respiration, CTA-B Gastrointestinal: Soft, non-distended, non-tender, no HSM Musculoskeletal: BLE normal to inspection and palpation Skin: Warm, dry, no visible discoloration Psych: Alert and oriented x 3, normal affect Data: Recent Labs Component Name 01/10/16 0327 01/08/162009 WBC 6.8 11.9* HGB 13.9 15.3 HCT 39.3 43.9 PLTCOUNT 171 269 Recent Labs Component Name 01/10/16 0327 01/08/162009 SODIUM 134* 136 POTASSIUM 4.0 3.5 CHLORIDE 103 99 CO2 25 28 BUN 15 15 CREATININE 0.87 1.28 GLUCOSE 328* 176* CALCIUM 8.4* 8.6 ALBUMIN - 3.9 ALKPHOS - 83 ALT - 20 AST - 10 TBIL - 0.5 TPROT - 7.9 EGFR >60 57* No results for input(s): MAGMGDL in the last 02818 hours. Recent Labs Component Name 01/08/162009 TSH 11.9* Recent Labs Component Name 01/09/16 0333 01/09/16 0030 01/08/162009 TROPONIN <0.015 <0.015 <0.015 No results for input(s): CKMBNGML in the last 46767 hours. ECG: EKG Interp Final Normal sinus rhythm Normal ECG no prior tracing seen Confirmed by MD INEZ, NOEL Ledbetter ([id number]) on 01/10/2016 7:55:51 AM QTc 441ms Telemetry: Predominantly sinus bradycardia with HR in the 50s's;intermittent SR. Two episodes of atrial tach versus SVT with HR 120s-150son 01/09/16. Echo from this admission: Report in process He denies prior stress test or cath ASSESSMENT: 1. Bradycardia; symptomatic 2. Atrial tachycardia versus SVT on tele (01/09/16) 3. Essential HTN 4. DM 5. Hypothyroidism PLAN: Dr. Tu Main will see patient and make recommendations. Thank you for allowing me to participate in the care of this very pleasantpatient. Yvonne Sam NP [facility] (phone) (fax) [place]: [place] [id number] [address] [address] Kale Rocha MD INPATIENT CON SULT ORDERABLES * CARDIAC RHYTHM STRIP ORDER (01/11/2016 10:23 PM CDT) Narrative 01/11/2016 10:23 PM CDT Ordered by an unspecified provider. Scanned Document CARDIAC SERVICES ORD ERABLES * CARDIAC EKG ORDER (01/11/2016 10:06 PM CDT) Narrative 01/11/2016 10:06 PM CDT Ordered by an unspecified provider. Scanned Document CARDIAC SERVICES ORD ERABLES * (ABNORMAL) GLUCOSE - POINT OF CARE (01/10/2016 4:40 PM CDT) [facility] Glucose WB/POC 226(H) 70 - 106 mg/dL 01/10/2016 6:10 PM CDT [facility] Blood BLOOD SPECIMEN / Unknown 01/10/2016 4:40 PM CDT 01/10/2016 6:10 PM CDT Mally Bales MD LAB - POINT OF CAR E ORDERABLES Performing Organization Address City/State/[facility] Co de Phone Number [facility] [address] [place] [address] * ECHOCARDIOGRAM 2D WITH DOPPLER (01/10/2016 1:08 PM CDT) 01/10/2016 1:08 PM CDT Narrative [facility] - 01/10/2016 2:51 PM CDT Transthoracic Echocardiogram 2D, M-mode, Doppler, and Color Doppler Patient: LUIS DANIEL FORD MR number: [id number] Height: 77 in Weight: 275.4 lb BSA: 2.57 m?? Study date: 10-Jan-2016 : 1955 Age: 61 years Gender: Male Race: Spring Maker: ??DOMINGA Cummings, [facility] Ordering Physician: ??Aj Chen MD Reading Physician: ??Wendy Moulton MD Impressions: 1. Low normal systolic function - EF 50% 2. Impaired relaxation - diastolic dysfunction grade I 3. No significant valvular abnormalities 4. No pericardial effusion Summary: - ??Clinical question: - ??Bradycardia - ??History: - ??DM, HTN - ??Left ventricle: - ??Systolic function was at the lower limits of normal. Ejection fraction was estimated to be 50 %. - ??There were no regional wall motion abnormalities. - ??Wall thickness was normal. - ??Doppler parameters were consistent with abnormal left ventricular relaxation (grade 1 diastolic dysfunction). - ??Aorta, systemic arteries: - ??The root exhibited mild dilatation. - ??Impressions: - ??1. Low normal systolic function - EF 50% 2. Impaired relaxation - diastolic dysfunction grade I 3. No significant valvular abnormalities 4. No pericardial effusion Indications: Bradycardia History: Prior history: DM, HTN Procedure: The procedure was performed at the bedside. This was a routine study. The transthoracic approach was used. The study included complete 2D imaging, M-mode, complete spectral Doppler, and color Doppler. Systolic blood pressure was 139 mmHg. Diastolic blood pressure was 77 mmHg. Images were obtained from the parasternal, apical, subcostal, and suprasternal notch acoustic windows. Intravenous contrast (Definity) was administered to opacify the left ventricle. This was a technically difficult study. Left ventricle: Size was normal. Systolic function was at the lower limits of normal. Ejection fraction was estimated to be 50 %. There were no regional wall motion abnormalities. Wall thickness was normal. Doppler: Doppler parameters were consistent with abnormal left ventricular relaxation (grade 1 diastolic dysfunction). There was no evidence of elevated ventricular filling pressure by Doppler parameters. Aortic valve: The valve was trileaflet. Leaflets exhibited normal thickness and normal cuspal separation. Doppler: Transaortic velocity was within the normal range. There was no stenosis. There was no regurgitation. Aorta: The root exhibited mild dilatation. Mitral valve: Valve structure was normal. There was normal leaflet separation. Doppler: The transmitral velocity was within the normal range. There was no evidence for stenosis. There was no regurgitation. Left atrium: Size was normal. Right ventricle: The size was normal. Systolic function was normal. Wall thickness was normal. Pulmonic valve: Not well visualized. Doppler: There was no significant regurgitation. Tricuspid valve: The valve structure was normal. There was normal leaflet separation. Doppler: The transtricuspid velocity was within the normal range. There was no evidence for tricuspid stenosis. There was no regurgitation. Right atrium: Size was normal. Pericardium: There was no pericardial effusion. A pericardial fat pad was present. The pericardium was normal in appearance. Impressions: 1. Low normal systolic function - EF 50% 2. Impaired relaxation - diastolic dysfunction grade I 3. No significant valvular abnormalities 4. No pericardial effusion System measurement tables 2D Mode LA Systolic Volume; Biplane; (2D): 85 cm3 IVSd (2D): 1.1 cm IVSd; Mean (2D): 1.1 cm LVIDd (2D): 4.7 cm LVIDs (2D): 3.4 cm LVPWd (2D): 1.2 cm Apical Four Chamber SI (A4C): 40.6 ml/m2 M Mode AoR Diam (MM): 4.2 cm AoR Diam; Mean (MM): 4.2 cm Unspecified Scan Mode EVGENY; Cont Eq by Peak Mathew: 3 cm2 Aortic Valve Area: 3.1 cm2 Peak Grad; Mean; Antegrade Flow: 5 mm[Hg] Vmax; Antegrade Flow: 115 cm/s LVOT CV Orifice Diam; Mean: 2.4 cm LVOT Diam: 2.4 cm LVOT Mean Grad: 1 mm[Hg] LVOT Mean Mathew: 55 cm/s LVOT VTI: 17.1 cm LVOT Vmax: 75.7 cm/s MV E Velocity: 54.3 cm/s MV E/A Ratio: 0.8 MV Peak A Mathew; Mean: 64.2 cm/s MV Peak A Velocity: 64.2 cm/s MV Peak E Mathew; Antegrade Flow: 54.3 cm/s Peak Grad; Mean; Antegrade Flow: 4 mm[Hg] Vmax; Antegrade Flow: 98 cm/s Prepared and signed by Wendy Moulton MD Signed 10-Jan-2016 14:50:40 Procedure Note Wendy Moulton MD - 01/10/2016 Transthoracic Echocardiogram 2D, M-mode, Doppler, and Color Doppler Patient: LUIS DANIEL FORD MR number: [id number] Height: 77 in Weight: 275.4 lb BSA: 2.57 m?? Study date: 10-Jan-2016 : 1955 Age: 61 years Gender: Male Race: Spring Maker: DOMINGA Cummings, RDCS Ordering Physician: Aj Chen MD Reading Physician: Wendy Moulton MD Impressions: 1. Low normal systolic function - EF 50% 2. Impaired relaxation - diastolic dysfunction grade I 3. No significant valvular abnormalities 4. No pericardial effusion Summary: - Clinical question: - Bradycardia - History: - DM, HTN - Left ventricle: - Systolic function was at the lower limits of normal. Ejection fraction was estimated to be 50 %. - There were no regional wall motion abnormalities. - Wall thickness was normal. - Doppler parameters were consistent with abnormal left ventricular relaxation (grade 1 diastolic dysfunction). - Aorta, systemic arteries: - The root exhibited mild dilatation. - Impressions: - 1. Low normal systolic function - EF 50% 2. Impaired relaxation - diastolic dysfunction grade I 3. No significant valvular abnormalities 4. No pericardial effusion Indications: Bradycardia History: Prior history: DM, HTN Procedure: The procedure was performed at the bedside. This was a routine study. The transthoracic approach was used. The study included complete 2D imaging, M-mode, complete spectral Doppler, and color Doppler. Systolic blood pressure was 139 mmHg. Diastolic blood pressure was 77 mmHg. Images were obtained from the parasternal, apical, subcostal, and suprasternal notch acoustic windows. Intravenous contrast (Definity) was administered to opacify the left ventricle. This was a technically difficult study. Left ventricle: Size was normal. Systolic function was at the lower limits of normal. Ejection fraction was estimated to be 50 %. There were no regional wall motion abnormalities. Wall thickness was normal. Doppler: Doppler parameters were consistent with abnormal left ventricular relaxation (grade 1 diastolic dysfunction). There was no evidence of elevated ventricular filling pressure by Doppler parameters. Aortic valve: The valve was trileaflet. Leaflets exhibited normal thickness and normal cuspal separation. Doppler: Transaortic velocity was within the normal range. There was no stenosis. There was no regurgitation. Aorta: The root exhibited mild dilatation. Mitral valve: Valve structure was normal. There was normal leaflet separation. Doppler: The transmitral velocity was within the normal range. There was no evidence for stenosis. There was no regurgitation. Left atrium: Size was normal. Right ventricle: The size was normal. Systolic function was normal. Wall thickness was normal. Pulmonic valve: Not well visualized. Doppler: There was no significant regurgitation. Tricuspid valve: The valve structure was normal. There was normal leaflet separation. Doppler: The transtricuspid velocity was within the normal range. There was no evidence for tricuspid stenosis. There was no regurgitation. Right atrium: Size was normal. Pericardium: There was no pericardial effusion. A pericardial fat pad was present. The pericardium was normal in appearance. Impressions: 1. Low normal systolic function - EF 50% 2. Impaired relaxation - diastolic dysfunction grade I 3. No significant valvular abnormalities 4. No pericardial effusion System measurement tables 2D Mode LA Systolic Volume; Biplane; (2D): 85 cm3 IVSd (2D): 1.1 cm IVSd; Mean (2D): 1.1 cm LVIDd (2D): 4.7 cm LVIDs (2D): 3.4 cm LVPWd (2D): 1.2 cm Apical Four Chamber SI (A4C): 40.6 ml/m2 M Mode AoR Diam (MM): 4.2 cm AoR Diam; Mean (MM): 4.2 cm Unspecified Scan Mode EVGENY; Cont Eq by Peak Mathew: 3 cm2 Aortic Valve Area: 3.1 cm2 Peak Grad; Mean; Antegrade Flow: 5 mm[Hg] Vmax; Antegrade Flow: 115 cm/s LVOT CV Orifice Diam; Mean: 2.4 cm LVOT Diam: 2.4 cm LVOT Mean Grad: 1 mm[Hg] LVOT Mean Mathew: 55 cm/s LVOT VTI: 17.1 cm LVOT Vmax: 75.7 cm/s MV E Velocity: 54.3 cm/s MV E/A Ratio: 0.8 MV Peak A Mathew; Mean: 64.2 cm/s MV Peak A Velocity: 64.2 cm/s MV Peak E Mathew; Antegrade Flow: 54.3 cm/s Peak Grad; Mean; Antegrade Flow: 4 mm[Hg] Vmax; Antegrade Flow: 98 cm/s Prepared and signed by Wendy Moulton MD Signed 10-Jan-2016 14:50:40 Kale Rocha MD ECHO ORDERABL ES [facility] [address] [address] * (ABNORMAL) GLUCOSE - POINT OF CARE (01/10/2016 12:35 PM CDT) Glucose WB/POC 300(H) 70 - 106 mg/dL 01/10/2016 6:10 PM CDT [facility] Blood BLOOD SPECIMEN / Unknown 01/10/2016 12:35 PM CDT 01/10/2016 6:10 PM CDT Mally Bales MD LAB - POINT OF CAR E ORDERABLES [facility] [address] [address] * (ABNORMAL) GLUCOSE - POINT OF CARE (01/10/2016 8:44 AM CDT) Glucose WB/POC 286(H) 70 - 106 mg/dL 01/10/2016 11:38 AM CDT [facility] Blood BLOOD SPECIMEN / Unknown 01/10/2016 8:44 AM CDT 01/10/2016 11:38 AM CDT Mally Bales MD LAB - POINT OF CAR E ORDERABLES Performing Organization Address [facility] Co de Phone Number [facility] [address] [place] [address] * (ABNORMAL) BASIC METABOLIC PANEL (CALCIUM TOTAL) (01/10/2016 3:27 AM CDT) Glucose 328(H) 74 - 106 mg/dL 01/10/2016 4:15 AM CDT [facility] Sodium 134(L) 136 - 145 mmol/L 01/10/2016 4:15 AM CDT [facility] Potassium 4.0 3.5 - 5.1 mmol/L 01/10/2016 4:15 AM CDT [facility] Chloride 103 98 - 107 mmol/L 01/10/2016 4:15 AM CDT [facility] CO2 25 22 - 31 mmol/L 01/10/2016 4:15 AM CDT [facility] Calcium 8.4(L) 8.5 - 10.1 mg/dL 01/10/2016 4:15 AM T [facility] Anion Gap 6 5 - 20 mmol/L 01/10/2016 4:15 AM CDT [facility] BUN 15 7 - 21 mg/dL 01/10/2016 4:15 AM CDT [facility] Creatinine 0.87 0.50 - 1.30 mg/dL 01/10/2016 4:15 AM CDT [facility] eGFR by MDRD >60 >60 mL/min/1.7 3m2 01/10/2016 4:15 AM CDT [facility] eGFR by MDRD >60 >60 mL/min/1.7 3m2 01/10/2016 4:15 AM CDT [facility] Blood BLOOD SPECIMEN / Unknown Lab Venipuncture / Unknown 01/10/2016 3:27 AM CDT 01/10/2016 3:58 AM CDT Kayleigh Hall DO LAB - CHEMISTRY ORD ERABLES [facility] [address] [place] [address] * (ABNORMAL) CBC W AUTO DIFFERENTIAL (01/10/2016 3:27 AM CDT) WBC 6.8 4.4 - 10.7 x10E9/L 01/10/2016 4:01 AM [facility] WBC Corrected x10E9/L 01/10/2016 4:01 AM [facility] RBC 4.63 3.80 - 5.40 x10E12/L 01/10/2016 4:01 AM [facility] Hemoglobin 13.9 12.0 - 17.6 gm/dL 01/10/2016 4:01 AM [facility] Hematocrit 39.3 35.2 - 51.7 % 01/10/2016 4:01 AM [facility] MCV 84.9 80.7 - 98.3 fl 01/10/2016 4:01 AM [facility] MCH 30.0 26.7 - 34.0 pg 01/10/2016 4:01 AM [facility] MCHC 35.4 30.8 - 35.9 gm/dL 01/10/2016 4:01 AM [facility] Platelet Count 171 153 - 416 x10E9/L 01/10/2016 4:01 AM [facility] RDW-CV 12.2 12.1 - 14.9 % 01/10/2016 4:01 AM [facility] MPV 10.0 9.4 - 12.9 fl 01/10/2016 4:01 AM CDT [facility] Neutrophils % 55.2 44.0 - 73.0 % 01/10/2016 4:01 AM [facility] Lymphocytes % 26.8 20.0 - 43.0 % 01/10/2016 4:01 AM [facility] Monocytes % 6.2 5.0 - 13.0 % 01/10/2016 4:01 AM [facility] Eosinophils % 9.2(H) 0.0 - 6.0 % 01/10/2016 4:01 AM [facility] Basophils % 1.6 0.0 - 2.0 % 01/10/2016 4:01 AM [facility] Immature Granulocytes 1.0 0 - 1 % 01/10/2016 4:01 AM [facility] Neutrophil Absolute 3.73 2.01 - 7.14 x10E9/L 01/10/2016 4:01 AM [facility] Lymphocytes Absolute 1.81 1.07 - 3.94 x10E9/L 01/10/2016 4:01 AM [facility] Monocytes Absolute 0.42 0.26 - 1.07 x10E9/L 01/10/2016 4:01 AM [facility] Eosinophils Absolute 0.62(H) 0 - 0.47 x10E9/L 01/10/2016 4:01 AM [facility] Basophils Absolute 0.11(H) 0 - 0.08 x10E9/L 01/10/2016 4:01 AM [facility] Immature Granulocytes Absolute 0.07(H) 0.00 - 0.06 x10E9/L 01/10/2016 4:01 AM [facility] nRBC Auto 0 /100 WBC 01/10/2016 4:01 AM [facility] Blood BLOOD SPECIMEN / Unknown Lab Venipuncture / Unknown 01/10/2016 3:27 AM CDT 01/10/2016 3:58 AM T Kayleigh Hall DO LAB - HEMATOLOGY OR DERABLES [facility] [address] [id number] * (ABNORMAL) GLUCOSE - POINT OF CARE (01/09/2016 11:57 PM CDT) Glucose WB/POC 360(H) 70 - 106 mg/dL 01/10/2016 1:09 PM CDT [facility] Blood BLOOD SPECIMEN / Unknown 01/09/2016 11:57 PM CDT 01/10/2016 1:09 PM CDT Kayleigh Hall DO LAB - POINT OF CARE ORDERABLES [facility] [address] [address] * (ABNORMAL) GLUCOSE - POINT OF CARE (01/09/2016 9:03 PM CDT) Glucose WB/POC 331(H) 70 - 106 mg/dL 01/10/2016 1:09 PM CDT [facility] Blood BLOOD SPECIMEN / Unknown 01/09/2016 9:03 PM CDT 01/10/2016 1:09 PM CDT Kayleigh Hall DO LAB - POINT OF CARE ORDERABLES Performing Organization Address City/[facility]/ZIP Co de Phone Number [facility] [address] [place] [address] * (ABNORMAL) GLUCOSE - POINT OF CARE (01/09/2016 5:11 PM CDT) Glucose WB/POC 297(H) 70 - 106 mg/dL 01/09/2016 5:18 PM CDT [facility] Blood BLOOD SPECIMEN / Unknown 01/09/2016 5:11 PM CDT 01/09/2016 5:18 PM CDT Kayleigh Hall DO LAB - POINT OF CARE ORDERABLES Performing Organization Address City/[facility]/ZIP Co de Phone Number [facility] [address] [address] * (ABNORMAL) GLUCOSE - POINT OF CARE (01/09/2016 11:43 AM CDT) Glucose WB/POC 358(H) 70 - 106 mg/dL 01/09/2016 12:02 PM CDT [facility] Blood BLOOD SPECIMEN / Unknown 01/09/2016 11:43 AM CDT 01/09/2016 12:02 PM CDT Kayleigh Hall LAB - POINT OF CARE ORDERABLES [facility] [address] [place] [address] * (ABNORMAL) GLUCOSE - POINT OF CARE (01/09/2016 7:42 AM CDT) Glucose WB/POC 293(H) 70 - 106 mg/dL 01/09/2016 7:46 AM CDT [facility] Blood BLOOD SPECIMEN / Unknown 01/09/2016 7:42 AM CDT 01/09/2016 7:46 AM CDT Kayleigh Hall LAB - POINT OF CARE ORDERABLES Performing Organization Address City/[facility]/ZIP Co de Phone Number [facility] [address] [place] [address] * TROPONIN I (01/09/2016 3:33 AM CDT) [facility] Troponin I <0.015 0.000 - 0.049 ng/mL 01/09/2016 4:52 AM CDT [facility] Blood BLOOD SPECIMEN / Unknown Lab Venipuncture / Unknown 01/09/2016 3:33 AM CDT 01/09/2016 4:23 AM CDT Narrative [facility] - 01/09/2016 4:52 AM CDT Note: Diagnosis of myocardial infarction requires symptoms of ischemia or EKG changes of ischemia and Troponin I >99th of normal (0.05 ng/mL). Troponin should be drawn on initial assessment and 3-6 hours later as clinically indicated. Any condition resulting in myocardial cell damage can increase cardiac troponin levels. In addition to myocardial infarction, these include but are not limited to congestive heart failure (CHF), arrhythmia, myocarditis, and non-cardiac related causes such as pulmonary embolism, renal failure and sepsis. Ingris Ascencio DO LAB - CHEMISTRY ORDE SWETHA Performing Organization Address [facility]/ZIP Co de Phone Number [facility] [address] [address] * (ABNORMAL) GLUCOSE - POINT OF CARE (01/09/2016 12:39 AM CDT) Glucose WB/POC 194(H) 70 - 106 mg/dL 01/09/2016 12:43 AM CDT [facility] Blood BLOOD SPECIMEN / Unknown 01/09/2016 12:39 AM CDT 01/09/2016 12:43 AM CDT Jatin Peres DO LAB - POINT OF CARE ORDERABLES Performing Organization Address [facility] Co de Phone Number [facility] [address] [place] [address] * TROPONIN I (01/09/2016 12:30 AM CDT) Troponin I <0.015 0.000 - 0.049 ng/mL 01/09/2016 1:12 AM CDT [facility] Blood BLOOD SPECIMEN / Unknown Lab Venipuncture / Unknown 01/09/2016 12:30 AM CDT 01/09/2016 12:52 AM CDT Narrative [facility] - 01/09/2016 1:12 AM CDT Note: Diagnosis of myocardial infarction requires symptoms of ischemia or EKG changes of ischemia and Troponin I >99th of normal (0.05 ng/mL). Troponin should be drawn on initial assessment and 3-6 hours later as clinically indicated. Any condition resulting in myocardial cell damage can increase cardiac troponin levels. In addition to myocardial infarction, these include but are not limited to congestive heart failure (CHF), arrhythmia, myocarditis, and non-cardiac related causes such as pulmonary embolism, renal failure and sepsis. Ingris Ascencio DO LAB - CHEMISTRY ORDLuca [place] Performing Organization Address [facility]/ZIP Co de Phone Number [facility] [address] [address] * ED CRITICAL CARE (2016 11:36 PM CDT) Narrative Ingris Ascencio, DO - 2016 11:36 PM CDT Ingris Ascencio, DO ? 2016 11:36 PM Critical Care Performed by: INGRIS ASCENCIO Authorized by: INGRIS ASCENCIO Total critical care time: 35 minutes Critical care time was exclusive of separately billable procedures and treating other patients. Critical care was necessary to treat or prevent imminent or life-threatening deterioration of the following conditions: cardiac failure and circulatory failure. Critical care was time spent personally by me on the following activities: development of treatment plan with patient or surrogate, discussions with consultants, evaluation of patient's response to treatment, examination of patient, re-evaluation of patient's condition, pulse oximetry, ordering and review of radiographic studies, ordering and review of laboratory studies, ordering and performing treatments and interventions and obtaining history from patient or surrogate. Ingris Ascencio DO PROCEDURE/MINOR SURG ICAL ORDERABLES * DRUG SCREEN TOX URINE PANEL (2016 11:22 PM CDT) [facility] Amphetamines Screen Urine Not Detected Not Detected 2016 11:41 PM [facility] Barbiturates Screen Urine Not Detected Not Detected 2016 11:41 PM [facility] Benzodiazepines Screen Urine Not Detected Not Detected 2016 11:41 PM [facility] Cannabinoids Screen Urine Not Detected Not Detected 2016 11:41 PM T [facility] Cocaine Screen Urine Not Detected Not Detected 2016 11:41 PM [facility] Methadone Screen Urine Not Detected Not Detected 2016 11:41 PM [facility] Opiate Screen Urine Not Detected Not Detected 2016 11:41 PM [facility] Phencyclidine Screen Urine Not Detected Not Detected 2016 11:41 PM [facility] Urine URINE / Unknown 2016 1 1:22 PM CDT 2016 11:25 PM CDT Narrative [facility] - 2016 11:41 PM CDT This drug screen is designed for MEDICAL purposes only. It is not to be used for legal purposes, including but not limited to worker's comp, police investigations, occupational issues, child custody, etc. ??Any positive result is only presumptive and must be confirmed with a separate confirmatory test ordered by the physician. Drug Screening Test Cutoff Values: AMPHETAMINES ?1000 ng/mL BARBITURATES ? 200 ng/mL BENZODIAZEPINES ??200 ng/mL CANNABINOIDS(THC) 50 ng/mL COCAINE ?300 ng/mL METHADONE ?300 ng/mL OPIATES ?300 ng/mL PHENCYCLIDINE(PCP)25 ng/mL Ingris Ascencio DO LAB - URINE CHEMISTR Y ORDERABLES [facility] [address] [place] [address] * (ABNORMAL) URINALYSIS ROUTINE W/REFLEX TO CULTURE (2016 11:22 PM CDT) Color UA Yellow Straw, Yellow, Dark Yellow 2016 11:35 PM CDT [facility] Clarity UA Clear 2016 11:35 PM CDT [facility] Specific [place] UA >1.030(H) 1.005 - 1.030 2016 11:35 PM CDT [facility] pH UA 5.5 5.0 - 8.0 pH 2016 11:35 PM CDT [facility] Protein UA 1+(A) Negative 2016 11:35 PM CDT [facility] Blood UA Negative Negative 2016 11:35 PM CDT [facility] Leukocyte UA Negative Negative 2016 11:35 PM CDT [facility] Nitrite UA Negative Negative 2016 11:35 PM CDT [facility] Glucose UA 3+(A) Negative 2016 11:35 PM CDT [facility] Ketone UA Trace(A) Negative 2016 11:35 PM CDT [facility] Bilirubin UA Negative Negative 2016 11:35 PM CDT [facility] Urobilinogen UA 0.2 0.1 - 1.0 EU/dL 2016 11:35 PM CDT [facility] WBC UA Auto 0-2 0-2, 2-5 # /hpf 2016 11:35 PM CDT [facility] RBC UA Auto 2-5 0-2, 2-5 # /hpf 2016 11:35 PM CDT [facility] Epithelial Cell UA Auto 0-2 0-2, 2-5 # /hpf 2016 11:35 PM CDT [facility] Hyaline Casts UA Auto 5-10(A) 0 - 2 #/lpf 2016 11:35 PM CDT [facility] Reflex Status Culture not indicated 2016 11:35 PM CDT [facility] Urine URINE SPECIMEN OBTAINED BY CLEAN CATCH PROCEDURE / Unknown 2016 11:22 PM CDT 2016 11:25 PM CDT Ingris Ascencio DO LAB - URINALYSIS ORD ERABLES [facility] [address] [place] [address] * CT HEAD NON CONTRAST (2016 8:48 PM CDT) Anatomical Region Laterality Modality Head Computed Tomogra phy 2016 8:56 PM CDT Impressions 2016 8:57 PM CDT No acute findings in the brain. ??Noncontrast brain CT. Please see above. Sinus disease as noted above. Narrative 2016 8:57 PM CDT EXAMINATION: CT BRAIN WITHOUT CONTRAST. Indication: Shock, unspecified. ??Dizziness and giddiness. ??Hypotension. Technique: Noncontrast axial images of the brain were performed at the time of the patient's presentation. ??This is a screening study. Additional coronal reformatted images were performed with the CT scanner software. ??This CT report was transcribed with a computerized speech recognition system. ??In an effort to expedite patient care, it has not been adjusted for typographical, grammatical or syntax problems by a trained rn medical surgical. Findings: ??The axial bone window images show soft tissue thickening in the maxillary sinuses worse on the right. ??There is also small area of rounded soft tissue thickening in the left sphenoid sinus. ??There is no intracranial mass-effect or midline shift identified. The ventricular system is normal in size for the stated age. No focal intraparenchymal hemorrhage can be identified. ??If the patient's symptoms persist or worsen, a followup brain CT or a scheduled brain MRI may be considered for further evaluation. Procedure Note Arsen Cabrera MD - 2016 EXAMINATION: CT BRAIN WITHOUT CONTRAST. Indication: Shock, unspecified. Dizziness and giddiness. Hypotension. Technique: Noncontrast axial images of the brain were performed at the time of the patient's presentation. This is a screening study. Additional coronal reformatted images were performed with the CT scanner software. This CT report was transcribed with a computerized speech recognition system. In an effort to expedite patient care, it has not been adjusted for typographical, grammatical or syntax problems by a trained rn medical surgical. Findings: The axial bone window images show soft tissue thickening in the maxillary sinuses worse on the right. There is also small area of rounded soft tissue thickening in the left sphenoid sinus. There is no intracranial mass-effect or midline shift identified. The ventricular system is normal in size for the stated age. No focal intraparenchymal hemorrhage can be identified. If the patient's symptoms persist or worsen, a followup brain CT or a scheduled brain MRI may be considered for further evaluation. IMPRESSION No acute findings in the brain. Noncontrast brain CT. Please see above. Sinus disease as noted above. Ingris Ascencio DO CT ORDERABLES * XR CHEST 1VW PORTABLE (2016 8:24 PM CDT) Anatomical Region Laterality Modality Chest Radiographic Zahra ging 2016 9:15 PM CDT Impressions 2016 9:16 PM CDT Incomplete inspiration with suspected hypoventilatory changes in the right lower lobe. This examination uses the nonstandard portable technique. This report was transcribed with a computerized speech recognition system. ??In an effort to expedite patient care, it has not been adjusted for typographical, grammatical or syntax problems by a trained rn medical surgical. For questions about the report, please contact the Radiology Department. Narrative 2016 9:16 PM CDT PORTABLE AP CHEST INDICATION: Shock, unspecified. ??Bradycardia.. COMPARISON: October 05, 2007 FINDINGS: A single portable view of the chest shows the lungs to be incompletely expanded. ??No confluent infiltrates can be identified but increased density is present in the right lower lobe.. ??The heart size is normal. Procedure Note Arsen Cabrera MD - 2016 PORTABLE AP CHEST INDICATION: Shock, unspecified. Bradycardia.. COMPARISON: October 05, 2007 FINDINGS: A single portable view of the chest shows the lungs to be incompletely expanded. No confluent infiltrates can be identified but increased density is present in the right lower lobe.. The heart size is normal. IMPRESSION Incomplete inspiration with suspected hypoventilatory changes in the right lower lobe. This examination uses the nonstandard portable technique. This report was transcribed with a computerized speech recognition system. In an effort to expedite patient care, it has not been adjusted for typographical, grammatical or syntax problems by a trained rn medical surgical. For questions about the report, please contact the Radiology Department. Ingris Ascencio DO DIAGNOSTIC IMAGING O RDERABLES * (ABNORMAL) BLOOD GASES ART (2016 8:24 PM CDT) pH Arterial 7.41 7.35 - 7.45 pH 2016 8:32 PM CDT [facility] pCO2 Arterial 38 35 - 45 mm hg 2016 8:32 PM CDT [facility] pO2 Arterial 77(L) 80 - 100 mm hg 2016 8:32 PM CDT [facility] HCO3 Arterial 23 22 - 26 mmol/L 2016 8:32 PM CDT [facility] BE Arterial -1.1 -2.0 - 2.0 mmol/L 2016 8:32 PM CDT [facility] O2 Saturation Arterial 96 90 - 100 % 2016 8:32 PM CDT [facility] Hemoglobin Arterial 14.3 14.0 - 16.0 gm/dL 2016 8:32 PM CDT [facility] Carboxyhemoglobin Arterial 0.5 0.0 - 2.5 % 2016 8:32 PM CDT [facility] Methemoglobin Arterial 0.1 0.0 - 2.0 % 2016 8:32 PM CDT [facility] Oxyhemoglobin Arterial 95 % 2016 8:32 PM CDT [facility] Mode Room Air 2016 8:32 PM CDT [facility] Sample Site R Radial 2016 8:32 PM CDT [facility] Sample Type Arterial 2016 8:32 PM CDT [facility] 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 VANGIE SPENCER 2016 8:32 PM CDT [facility] Blood ARTERIAL BLOOD SPECIMEN / Unknown 2016 8:24 PM CDT 2016 8:24 PM CDT Ingris Ascencio DO LAB - BLOOD GASES OR DERABLES [facility] [address] [place] [address], [facility] * NT-PRO BNP (2016 8:10 PM CDT) NT-proBNP 25.0 <300.0 pg/mL 2016 8:38 PM CDT [facility] Blood BLOOD SPECIMEN / Unknown Venipuncture / Unknown 2016 8:10 PM CDT 2016 8:18 PM CDT Narrative [facility] - 2016 8:38 PM CDT NT-proBNP Patient Age ? Acute HF Unlikely ? Acute HF Likely <50 years ? <300 pg/mL ? >450 pg/mL 50-75 years ?<300 pg/mL ? >900 pg/mL >75 years ? <300 pg/mL ? >1800 pg/mL Reference: GARLAND Martines et al. ICON Study. Heart Journal (2006) 27, 330- 337 Both BNP and NT-proBNP derive from the precursor molecule called proBNP which is secreted from the ventricles in response to ventricle volume expansion and/or pressure overload. The secreted proBNP is subsequently cleaved by enzymes to form BNP, the active hormone and NT-proBNP an inactive metabolite. NT-proBNP has a longer half-life of 1.5-2.0 hours verses BNP with a half-life of 20 min for BNP. Both are useful biomarkers of ventricular distension due to increased intracardiac pressure. Both BNP and NT-proBNP increase with age and renal insufficiency. Increased concentrations of NT-proBNP have also been observed in the setting of acute myocardial infarction, right ventricular failure, valvular heart disease, and atrial fibrillation. Ingris Ascencio DO LAB - CHEMISTRY ROBERTO POSADA Performing Organization Address City/[facility]/ZIP Co de Phone Number [facility] [address] [place] [address] * (ABNORMAL) TSH (2016 8:10 PM CDT) TSH 11.9(H) 0.358 - 3.740 uIU/mL 2016 8:51 PM CDT [facility] Blood BLOOD SPECIMEN / Unknown Venipuncture / Unknown 2016 8:10 PM CDT 2016 8:18 PM CDT Ingris Ascencio DO LAB - CHEMISTRY ORDLuca GÓMEZDAMIAN [facility] [address] [place] [id number] * TROPONIN I (2016 8:10 PM CDT) Troponin I <0.015 0.000 - 0.049 ng/mL 2016 8:38 PM CDT [facility] Blood BLOOD SPECIMEN / Unknown Venipuncture / Unknown 2016 8:10 PM CDT 2016 8:18 PM CDT Narrative [facility] - 2016 8:38 PM CDT Note: Diagnosis of myocardial infarction requires symptoms of ischemia or EKG changes of ischemia and Troponin I >99th of normal (0.05 ng/mL). Troponin should be drawn on initial assessment and 3-6 hours later as clinically indicated. Any condition resulting in myocardial cell damage can increase cardiac troponin levels. In addition to myocardial infarction, these include but are not limited to congestive heart failure (CHF), arrhythmia, myocarditis, and non-cardiac related causes such as pulmonary embolism, renal failure and sepsis. Ingris Ascencio DO LAB - CHEMISTRY ORDLuca POSADA Performing Organization Address City/[facility]/ZIP Co de Phone Number [facility] [address] [place] [address] * (ABNORMAL) LACTIC ACID BLOOD (2016 8:10 PM CDT) Lactic Acid 3.1(H) 0.7 - 2.1 mmol/L 2016 8:42 PM CDT [facility] Blood BLOOD SPECIMEN / Unknown Venipuncture / Unknown 2016 8:10 PM CDT 2016 8:18 PM CDT Ingris Ascencio DO LAB - CHEMISTRY ORDLuca POSADA Performing Organization Address [facility]/ZIP Co de Phone Number [facility] [address] [place] [address] * ALCOHOL ETHYL BLOOD (2016 8:10 PM CDT) Ethanol <3 <10 mg/dL 2016 8:38 PM CDT [facility] Ethanol Calculated <0.100 gm/dL 2016 8:38 PM CDT [facility] Comment:Not Calculated Blood BLOOD SPECIMEN / Unknown Venipuncture / Unknown 2016 8:10 PM CDT 2016 8:18 PM CDT Narrative [facility] - 2016 8:38 PM CDT Non Legal Serum Alcohol Ingris C Sonu DO LAB - CHEMISTRY ROBERTO POSADA [facility] Organization Address City/State/ZIP Co de Phone Number [facility] [address] [place] [address] * (ABNORMAL) COMPREHENSIVE METABOLIC PANEL (2016 8:10 PM CDT) [facility] Signature Glucose 176(H) 74 - 106 mg/dL 2016 8:38 PM T [facility] Sodium 136 136 - 145 mmol/L 2016 8:38 PM [facility] Potassium 3.5 3.5 - 5.1 mmol/L 2016 8:38 PM [facility] Chloride 99 98 - 107 mmol/L 2016 8:38 PM [facility] CO2 28 22 - 31 mmol/L 2016 8:38 PM [facility] Calcium 8.6 8.5 - 10.1 mg/dL 2016 8:38 PM [facility] Anion Gap 9 5 - 20 mmol/L 2016 8:38 PM [facility] BUN 15 7 - 21 mg/dL 2016 8:38 PM [facility] Creatinine 1.28 0.50 - 1.30 mg/dL 2016 8:38 PM [facility] Alkaline Phosphatase 83 38 - 126 U/L 2016 8:38 PM [facility] ALT 20 13 - 61 U/L 2016 8:38 PM [facility] AST 10 5 - 40 U/L 2016 8:38 PM [facility] Protein Total 7.9 6.4 - 8.2 gm/dL 2016 8:38 PM [facility] Albumin 3.9 3.4 - 5.0 gm/dL 2016 8:38 PM [facility] Bilirubin Total 0.5 0.2 - 1.0 mg/dL 2016 8:38 PM [facility] eGFR by MDRD 57(L) >60 mL/min/1.7 3m2 2016 8:38 PM [facility] eGFR by MDRD >60 >60 mL/min/1.7 3m2 2016 8:38 PM CDT [facility] Blood BLOOD SPECIMEN / Unknown Venipuncture / Unknown 2016 8:10 PM CDT 2016 8:18 PM CDT Ingris Ascencio DO LAB - CHEMISTRY ROBERTO POSADA [facility] Organization Address City/State/ZIP Co de Phone Number [facility] [place] [address] * (ABNORMAL) CBC W AUTO DIFFERENTIAL (2016 8:10 PM CDT) WBC 11.9(H) 4.4 - 10.7 x10E9/L 2016 8:20 PM CDT [facility] WBC Corrected x10E9/L 2016 8:20 PM CDT [facility] RBC 5.19 3.80 - 5.40 x10E12/L 2016 8:20 PM CDT [facility] Hemoglobin 15.3 12.0 - 17.6 gm/dL 2016 8:20 PM CDT [facility] Hematocrit 43.9 35.2 - 51.7 % 2016 8:20 PM CDT [facility] MCV 84.6 80.7 - 98.3 fl 2016 8:20 PM CDT [facility] MCH 29.5 26.7 - 34.0 pg 2016 8:20 PM CDT [facility] MCHC 34.9 30.8 - 35.9 gm/dL 2016 8:20 PM CDT [facility] Platelet Count 269 153 - 416 x10E9/L 2016 8:20 PM CDT [facility] RDW-CV 12.0(L) 12.1 - 14.9 % 2016 8:20 PM CDT [facility] MPV 9.9 9.4 - 12.9 fl 2016 8:20 PM CDT [facility] Neutrophils % 54.9 44.0 - 73.0 % 2016 8:20 PM CDT [facility] Lymphocytes % 30.4 20.0 - 43.0 % 2016 8:20 PM CDT [facility] Monocytes % 6.8 5.0 - 13.0 % 2016 8:20 PM CDT [facility] Eosinophils % 6.1(H) 0.0 - 6.0 % 2016 8:20 PM CDT [facility] Basophils % 1.0 0.0 - 2.0 % 2016 8:20 PM T [facility] Immature Granulocytes 0.8 0 - 1 % 2016 8:20 PM T [facility] Neutrophil Absolute 6.53 2.01 - 7.14 x10E9/L 2016 8:20 PM T [facility] Lymphocytes Absolute 3.62 1.07 - 3.94 x10E9/L 2016 8:20 PM T [facility] Monocytes Absolute 0.81 0.26 - 1.07 x10E9/L 2016 8:20 PM T [facility] Eosinophils Absolute 0.72(H) 0 - 0.47 x10E9/L 2016 8:20 PM T [facility] Basophils Absolute 0.12(H) 0 - 0.08 x10E9/L 2016 8:20 PM [facility] Immature Granulocytes Absolute 0.10(H) 0.00 - 0.06 x10E9/L 2016 8:20 PM [facility] nRBC Auto 0 /100 WBC 2016 8:20 PM [facility] Blood BLOOD SPECIMEN / Unknown Venipuncture / Unknown 2016 8:10 PM CDT 2016 8:18 PM CDT Ingris Ascencio DO LAB - HEMATOLOGY ORD ERABLES [facility] [address] [place] [place] [address] * (ABNORMAL) GLUCOSE - POINT OF CARE (2016 8:06 PM CDT) [facility] Glucose WB/POC 181(H) 70 - 106 mg/dL 01/10/2016 10:33 AM CDT [facility] Blood BLOOD SPECIMEN / Unknown 2016 8:06 PM CDT 01/10/2016 10:33 AM CDT Ingris Ascencio DO LAB - POINT OF CARE ORDERABLES Performing Organization Address City/State/[facility] Co de Phone Number [facility] [address] [address] * EKG 12-LEAD (2016 8:01 PM CDT) Ventricular Rate 69 BPM [facility] Atrial Rate 69 BPM [facility] P-R Interval 126 ms [facility] QRS Duration ms 98 ms [facility] Q-T Interval ms 412 ms [facility] QTC Calculation (Bezet) 441 ms [facility] Calculated P [place] 36 degrees [facility] Calculated R [place] -26 degrees [facility] Calculated T [place] 3 degrees [facility] Interpretation EKG Normal sinus rhythm Normal ECG no prior tracing seen Confirmed by MD INEZ, NOEL Ledbetter ([id number]) on 01/10/2016 7:55:51 AM [facility] 2016 8:01 PM CDT 01/10/2016 7:55 AM CDT Ingris Ascencio DO ECG ORDERABLES Performing Organization Address [facility] Co de Phone Number [facility] documented in this encounter Visit Diagnoses Diagnosis Shock (HCC)- Primary Shock, unspecified Acute encephalopathy Encephalopathy, unspecified Bradycardia Other specified cardiac dysrhythmias Elevated lactic acid level Other nonspecific abnormal serum enzyme levels Benign essential HTN Essential hypertension, benign Bradycardia Other specified cardiac dysrhythmias documented in this encounter Administered Medications Inactive Administered Medications - up to 3 most recent administrations Medication Order MAR Action Action Date Dose Rate Site 0.9% NaCl infusion at 100 mL/hr, Intravenous, CONTINUOUS, Starting on 01/09/16 at 0030, Until 01/10/16 at 1940 $ New Bag/Syringe 01/09/2016 1:53 AM CDT 100 mL/hr 0.9% NaCl IV Bolus 1,000 mL, Administer over 61 Minutes, NOW, 1 dose, On 01/08/16 at 2015 $ Given 2016 8:21 PM CDT 1,000 mL $ Given 2016 8:16 PM CDT 1,000 mL aspirin (ASPIRIN) tablet 325 mg 325 mg, Oral, ONCE, 1 dose, On Sun01/10/16 at 1400, Take from nathan tang. $ Given 01/10/2016 3:29 PM CDT 325 mg dextrose injection 12.5-25 g 12.5-25 g (25-50 mL), Intravenous, PRN, Bedside Glucose less than 70 mg/dL -If NOT able to eat and/or NPO and with IV Access, Starting on Sun01/09/16 at 0751, Until Sun01/10/16 at 1940, ................. For Bedside Glucose 40-69 mg/dL give 25 mls D50W IVP STAT For Bedside glucose LESS than 40 mg/dL verify with a second Bedside Glucose (from a different site) and give 50 mls D50W IVP STAT Re-check and Re-treat blood glucose every 15 minutes until blood glucose GREATER than or equal to 70 mg/dl. Notify physician of hypoglycemic event. glucagon (GLUCAGEN) injection 1 mg 1 mg, Intramuscular, PRN, Bedside Glucose less than 70 mg/dL - If NOT able to eat and/or NPO and withOUT IV Access, Starting on Sun01/09/16 at 0751, Until Sun01/10/16 at 1940, .................... For Bedside glucose 40 - 69 mg/dL Give 1 mg IM or SQ For Bedside Glucose LESS than 40 mg/dl verify with a second bedside glucose (from a different site) and Give 1 mg IM or SQ Re-check and Re-treat blood glucose every 15 minutes until blood glucose GREATER than or equal to 70 mg/dl. Notify physician of hypoglycemic event. glucose (Diabetic Use) 40 % oral gel Oral, PRN, Other, Bedside Glucose less than 70 mg/dL -If able to eat and does not have swallowing difficulties, Starting on Sun01/09/16 at 0751, Until Sun01/10/16 at 1940, .................. For Bedside Glucose 40 - 69 mg/dL Give 15 grams of oral carbohydrates - 4 ounces of fruit juice or non-diet soda, - 8 ounces of fat-free milk, OR - glucose gel (1 tube). For Bedside Glucose LESS than 40 mg/dL verify with a second Bedside Glucose (from a different site) and Give 15 grams of oral carbohydrates - 4 ounces of fruit juice or non-diet soda, - 8 ounces of fat-free milk, OR - glucose gel (1 tube). Re-check and Re-treat blood glucose EVERY 15 minutes until blood glucose GREATER than or equal to 70 mg/dl. Notify physician of hypoglycemic event. insulin aspart (NovoLOG) pen 0-18 Units 0-18 Units, Subcutaneous, 3 TIMES DAILY WITH MEALS, First dose on 01/09/16 at 0830, Until Discontinued, High Dose : Correction Insulin. BG (mg/dL) Corrective Action LESS than 70: follow Hypoglycemic guidelines, 70-140: NO Correction insulin, 141-180: GIVE 3 units of insulin, 181-220: GIVE 6 units of insulin, 221-260: GIVE 9 units of insulin, 261-300: GIVE 12 units of insulin, 301-350: GIVE 15 units of insulin, Greater than 350: GIVE 18 units of insulin and Notify Physician. If the patient is NPO: DO NOT HOLD correction insulin If patient is eating meals and has orders for Mealtime insulin, combine and give at the same time. $ Given 01/10/2016 4:41 PM CDT 12 Units Abd Left Lower Quadrant $ Given 01/10/2016 12:38 PM CDT 12 Units R ight Upper Outer Quadrant $ Given 01/10/2016 9:25 AM CDT 12 Units Ab d Right Lower Quadrant insulin aspart (NovoLOG) pen 0-7 Units 0-7 Units, Subcutaneous, AT BEDTIME, First dose on 01/09/16 at 2100, Until Discontinued, High Dose: Bedtime Correction Insulin BG (mg/dL) Corrective Action LESS than 70 follow Hypoglycemic guidelines, 71-180 NO bedtime correction insulin 181-220 GIVE 1 unit of insulin 221-260 GIVE 3 unit of insulin 261-300 GIVE 4 units of insulin 301-350 GIVE 6 units of insulin Greater than 350 GIVE 7 units of insulin and Notify Physician $ Given 01/09/2016 9:05 PM CDT 6 Units Left Arm insulin detemir (LEVEMIR) pen 12 Units 12 Units, Subcutaneous, AT BEDTIME, First dose on 01/09/16 at 0200, Until Discontinued, . WASTE DISPOSAL INSTRUCTIONS: Black Bin Disposal required. $ Given 01/09/2016 9:05 PM CDT 12 Units Left Arm $ Given 01/09/2016 1:55 AM CDT 12 Units Ri ght Arm insulin detemir (LEVEMIR) pen 12 Units 12 Units, Subcutaneous, 2 TIMES DAILY, First dose (after last modification) on 01/10/16 at 0900, Until Discontinued, . WASTE DISPOSAL INSTRUCTIONS: Black Bin Disposal required. $ Given 01/10/2016 9:24 AM CDT 12 Units Left Upper Outer Quadrant levothyroxine (SYNTHROID) tablet 125 mcg 125 mcg, Oral, DAILY AT 0600, First dose on 01/09/16 at 0600, Until Discontinued, Take in the morning on an empty stomach. Do not give within 4 hours of antacids, iron or calcium supplements. $ Given 01/10/2016 5:55 AM CDT 125 mcg $ Given 01/09/2016 7:43 AM CDT 125 mcg lisinopril (PRINIVIL; ZESTRIL) tablet 10 mg 10 mg, Oral, DAILY, First dose on 01/10/16 at 1600, Until Discontinued $ Given 01/10/2016 3:26 PM CDT 10 mg perflutren Lipid Microsphere (DEFINITY) injection SUSP 1.5 mL 1.5 mL, Intravenous, INTRA-PROCEDURE ONCE, 1 dose, On 01/10/16 at 1316, Shake well before using. $ Given 01/10/2016 1:17 PM CDT 0.39 mL documented in this encounter Active and Recently Administered Medications Times are shown in CDT. Scheduled Medication Order 2016 01/09/2016 01/10/2016 0.9% NaCl IV Bolus (COMPLETED) 1,000 mL, Administer over 61 Minutes, NOW, 1 dose, On 01/08/16 at 2014 2015 ($ Given - Provider: Willard Bishop RN)2020 ($ Given - Provider: Willard Bishop RN)2116 (Rx Stopped - Provider: Wendy Fernandez RN - Comment: finished in the ED)2121 (Rx Stopped - Provider: Wendy Fernandez RN - Comment: Finished in the ED) aspirin (ASPIRIN) tablet 325 mg 325 mg, Oral, ONCE, 1 dose, On 01/10/16 at 1400, Take from pyxis please. 1529 ($ Given - Provider: Lorin Yan RN) insulin aspart (NovoLOG) pen 0-18 Units 0-18 Units, Subcutaneous, 3 TIMES DAILY WITH MEALS, First dose on 01/09/16 at 0830, Until Discontinued, High Dose : Correction Insulin. BG (mg/dL) Corrective Action LESS than 70: follow Hypoglycemic guidelines, 70-140: NO Correction insulin, 141-180: GIVE 3 units of insulin, 181-220: GIVE 6 units of insulin, 221-260: GIVE 9 units of insulin, 261-300: GIVE 12 units of insulin, 301-350: GIVE 15 units of insulin, Greater than 350: GIVE 18 units of insulin and Notify Physician. If the patient is NPO: DO NOT HOLD correction insulin If patient is eating meals and has orders for Mealtime insulin, combine and give at the same time. 0818 ($ Given - Provider: Paige Miller RN)1145 ($ Given - Provider: Paige Miller RN)1714 ($ Given - Provider: Paige Miller RN) 0925 ($ Given - Provider: Lorin Yan RN)1238 ($ Given - Provider: Lorin Yan RN)1641 ($ Given - Provider: Lorin Yan RN) insulin aspart (NovoLOG) pen 0-7 Units 0-7 Units, Subcutaneous, AT BEDTIME, First dose on 01/09/16 at 2100, Until Discontinued, High Dose: Bedtime Correction Insulin BG (mg/dL) Corrective Action LESS than 70 follow Hypoglycemic guidelines, 71-180 NO bedtime correction insulin 181-220 GIVE 1 unit of insulin 221-260 GIVE 3 unit of insulin 261-300 GIVE 4 units of insulin 301-350 GIVE 6 units of insulin Greater than 350 GIVE 7 units of insulin and Notify Physician 2104 ($ Given - Provider: Candy Chen RN) insulin detemir (LEVEMIR) pen 12 Units (CANCELED) 12 Units, Subcutaneous, AT BEDTIME, First dose on 01/09/16 at 0200, Until Discontinued, . WASTE DISPOSAL INSTRUCTIONS: Black Bin Disposal required. 0155 ($ Given - Provider: Wendy Fernandez, RN)2105 ($ Given - Provider: Candy Chen, RN) insulin detemir (LEVEMIR) pen 12 Units 12 Units, Subcutaneous, 2 TIMES DAILY, First dose (after last modification) on Sun01/10/16 at 0900, Until Discontinued, . WASTE DISPOSAL INSTRUCTIONS: Black Bin Disposal required. 0924 ($ Given - Provider: Lorin Yan, ROYER) levothyroxine (SYNTHROID) tablet 125 mcg 125 mcg, Oral, DAILY AT 0600, First dose on Sun01/09/16 at 0600, Until Discontinued, Take in the morning on an empty stomach. Do not give within 4 hours of antacids, iron or calcium supplements. 0743 ($ Given - Provider: Paige Miller RN) 0555 ($ Given - Provider: Candy Cehn, ROYER) lisinopril (PRINIVIL; ZESTRIL) tablet 10 mg 10 mg, Oral, DAILY, First dose on Sun01/10/16 at 1600, Until Discontinued 1526 ($ Given - Provider: Lorin Yan RN) perflutren Lipid Microsphere (DEFINITY) injection SUSP 1.5 mL (COMPLETED) 1.5 mL, Intravenous, INTRA-PROCEDURE ONCE, 1 dose, On Sun01/10/16 at 1316, Shake well before using. 1317 ($ Given - Provider: Wendy Morejon, ALL - Comment: Adequate for test) Continuous Medication Order 2016 01/09/2016 01/10/2016 0.9% NaCl infusion at 100 mL/hr, Intravenous, CONTINUOUS, Starting on Sun01/09/16 at 0030, Until Sun01/10/16 at 1940 0153 ($ New Bag/Syringe - Provider: Wendy Fernandez, ROYER) PRN Medication Order 2016 01/09/2016 01/10/2016 dextrose injection 12.5-25 g(Linked Group 1) 12.5-25 g (25-50 mL), Intravenous, PRN, Bedside Glucose less than 70 mg/dL -If NOT able to eat and/or NPO and with IV Access, Starting on Sun01/09/16 at 0751, Until Sun01/10/16 at 1940, ................. For Bedside Glucose 40-69 mg/dL give 25 mls D50W IVP STAT For Bedside glucose LESS than 40 mg/dL verify with a second Bedside Glucose (from a different site) and give 50 mls D50W IVP STAT Re-check and Re-treat blood glucose every 15 minutes until blood glucose GREATER than or equal to 70 mg/dl. Notify physician of hypoglycemic event. glucagon (GLUCAGEN) injection 1 mg(Linked Group 1) 1 mg, Intramuscular, PRN, Bedside Glucose less than 70 mg/dL - If NOT able to eat and/or NPO and withOUT IV Access, Starting on Sun01/09/16 at 0751, Until Sun01/10/16 at 1940, .................... For Bedside glucose 40 - 69 mg/dL Give 1 mg IM or SQ For Bedside Glucose LESS than 40 mg/dl verify with a second bedside glucose (from a different site) and Give 1 mg IM or SQ Re-check and Re-treat blood glucose every 15 minutes until blood glucose GREATER than or equal to 70 mg/dl. Notify physician of hypoglycemic event. glucose (Diabetic Use) 40 % oral gel(Linked Group 1) Oral, PRN, Other, Bedside Glucose less than 70 mg/dL -If able to eat and does not have swallowing difficulties, Starting on Sun01/09/16 at 0751, Until Sun01/10/16 at 1940, .................. For Bedside Glucose 40 - 69 mg/dL Give 15 grams of oral carbohydrates - 4 ounces of fruit juice or non-diet soda, - 8 ounces of fat-free milk, OR - glucose gel (1 tube). For Bedside Glucose LESS than 40 mg/dL verify with a second Bedside Glucose (from a different site) and Give 15 grams of oral carbohydrates - 4 ounces of fruit juice or non-diet soda, - 8 ounces of fat-free milk, OR - glucose gel (1 tube). Re-check and Re-treat blood glucose EVERY 15 minutes until blood glucose GREATER than or equal to 70 mg/dl. Notify physician of hypoglycemic event. Linked Groups Order Group 1: glucose (Diabetic Use) 40 % oral gelJump to med Oral, PRN, Other, Bedside Glucose less than 70 mg/dL -If able to eat and does not have swallowing difficulties, Starting on Sun01/09/16 at 0751, Until Sun01/10/16 at 1940, .................. For Bedside Glucose 40 - 69 mg/dL Give 15 grams of oral carbohydrates - 4 ounces of fruit juice or non-diet soda, - 8 ounces of fat-free milk, OR - glucose gel (1 tube). For Bedside Glucose LESS than 40 mg/dL verify with a second Bedside Glucose (from a different site) and Give 15 grams of oral carbohydrates - 4 ounces of fruit juice or non-diet soda, - 8 ounces of fat-free milk, OR - glucose gel (1 tube). Re-check and Re-treat blood glucose EVERY 15 minutes until blood glucose GREATER than or equal to 70 mg/dl. Notify physician of hypoglycemic event. Or dextrose injection 12.5-25 gJump to med 12.5-25 g (25-50 mL), Intravenous, PRN, Bedside Glucose less than 70 mg/dL -If NOT able to eat and/or NPO and with IV Access, Starting on Sun01/09/16 at 0751, Until Sun01/10/16 at 1940, ................. For Bedside Glucose 40-69 mg/dL give 25 mls D50W IVP STAT For Bedside glucose LESS than 40 mg/dL verify with a second Bedside Glucose (from a different site) and give 50 mls D50W IVP STAT Re-check and Re- treat blood glucose every 15 minutes until blood glucose GREATER than or equal to 70 mg/dl. Notify physician of hypoglycemic event. Or glucagon (GLUCAGEN) injection 1 mgJump to med 1 mg, Intramuscular, PRN, Bedside Glucose less than 70 mg/dL - If NOT able to eat and/or NPO and withOUT IV Access, Starting on Sun01/09/16 at 0751, Until Sun01/10/16 at 1940, .................... For Bedside glucose 40 - 69 mg/dL Give 1 mg IM or SQ For Bedside Glucose LESS than 40 mg/dl verify with a second bedside glucose (from a different site) and Give 1 mg IM or SQ Re-check and Re-treat blood glucose every 15 minutes until blood glucose GREATER than or equal to 70 mg/dl. Notify physician of hypoglycemic event. documented in this encounter Care Teams Coat Joiner Relationship Specialty Start Date End Date Sebastian Noguera Jr., MD PCP - General Family Medicine 01/08/16 documented as of this encounter
--- OUTSIDE RECORDS SUMMARY | 2024-04-06 23:57 | XMS_ITS | Patient Health Summary ---
Author Organization [facility] Address [address] [place] [address] Care Team Providers Care Putty Maker Name Role Phone Chuckie Chavira MD, Sebastian Grace Primary Care Provid er Note from [facility],non-owned Affiliates and Associated Physician Practices is amultiple site organization consisting of ambulatory clinics and hospital sitesin [place], [place], [place] and [place]. This disclosure is being madepursuant to the Care Everywhere program and may not contain all information available regarding this patient. Last updated 17.[facility] Allergies No known active allergies Medications * Be aware that medications may not be up to date on this document. Alwaysverify current medications with the patient. * Insulin Aspart (NOVOLOG SC) * aspirin (ASPIRIN) 325 MG tablet Take 325 mg by mouth * insulin detemir (LEVEMIR) pen Inject 12 Units subcutaneously * lisinopril (PRINIVIL; ZESTRIL) 20 MG tablet(Started 06/04/2015) Take 20 mg by mouth * insulin aspart (NOVOLOG FLEXPEN) pen(Started 04/02/2015) * levothyroxine (SYNTHROID) 125 MCG tablet(Started 01/10/2016) Take 1 Tab by mouth once daily 2 refills remaining * acetaminophen-codeine (TYLENOL #3) 300-30 MG tablet(Started 03/30/2020) Take 1 tablet by mouth every 6 hours as needed pain * doxycycline hyclate (VIBRAMYCIN) 100 MG capsule(Started 07/28/2020) Take 100 mg by mouth 2 times daily * ONETOUCH VERIO test strip(Started 01/31/2020) USE TO TEST TID * Insulin Lispro (HUMALOG KWIKPEN) 100 UNIT/ML(Started 02/19/2020) INJECT UP TO 120 UNITS PER DAY IN DIVIDED DOSES DIRECTED ON SLIDING SCALE * NA-K-MG sulfates (SUPREP) 17.5-3.13-1.6 GM/177ML solution(Started 08/04/2020) Take 177 mL by mouth once daily * Insulin NPH Human, Isophane, (HUMULIN N KWIKPEN SC) Inject 15 Units subcutaneously 3 times daily * Vitamin D, Cholecalciferol, 25 MCG (1000 UT) CAPS Active Problems Problem Noted Date Diagnosed Date [...] Comments Blood Pressure 145/78 04/07/2022 6:02 AM GARAGE DOOR SERVICE TECHNICIAN Pulse 72 04/06/2022 7:31 PM GARAGE DOOR SERVICE TECHNICIAN Temperature 36.3 ??C (97.4 ??F) 04/06/2022 7:31 PM CS T Respiratory Rate 18 04/06/2022 7:31 PM GARAGE DOOR SERVICE TECHNICIAN Oxygen Saturation 93% 04/07/2022 6:02 AM GARAGE DOOR SERVICE TECHNICIAN Inhaled Oxygen Concentration - - Weight 120.2 kg (265 lb) 09/13/2020 8:11 AM CDT Height 185.4 cm (6' 1 ) 09/13/2020 8:11 AM CDT Body Mass Index 34.96 09/13/2020 8:11 AM CDT Procedures * CARDIAC EKG ORDER(Performed 04/07/2022) * TROPONIN I(Performed 04/07/2022) * GLUCOSE - POINT OF CARE(Performed 04/07/2022) * GLUCOSE - POINT OF CARE(Performed 04/07/2022) * URINALYSIS REFLEX TO MICROSCOPIC NO CULTURE(Performed 04/07/2022) * TROPONIN I(Performed 04/07/2022) * CT HEAD WO CONTRAST(Performed 04/07/2022) Performed for Syncope and collapse * COMPREHENSIVE METABOLIC PANEL(Performed 04/06/2022) * BLOOD GASES DENEEN + COOX PANEL(Performed 04/06/2022) * HYDROXYBUTYRATE BETA(Performed 04/06/2022) * TROPONIN I(Performed 04/06/2022) * CBC W AUTO DIFFERENTIAL(Performed 04/06/2022) * EKG 12-LEAD(Performed 04/06/2022) Performed for Syncope and collapse * PATHOLOGY TISSUE EXAM (STL)(Performed 09/13/2020) Performed for Diverticulosis, Polyp of sigmoid colon, unspecified type * COLONOSCOPY SCREEN(Performed 09/13/2020) * GLUCOSE - POINT OF CARE(Performed 09/13/2020) * ENDOSCOPY, COLON, SCREENING(Performed 09/13/2020) * HEPATIC FUNCTION PANEL(Performed 07/06/2016) Performed for Dermatophytosis of nail * EVENT MONITOR(Performed 02/15/2016) Performed for Bradycardia * IP CONSULT TO ELECTROPHYSIOLOGY(Performed 01/25/2016) * CARDIAC RHYTHM STRIP ORDER(Performed 01/11/2016) * CARDIAC EKG ORDER(Performed 01/11/2016) * GLUCOSE - POINT OF CARE(Performed 01/10/2016) * ECHOCARDIOGRAM 2D WITH DOPPLER(Performed 01/10/2016) Performed for Bradycardia * GLUCOSE - POINT OF CARE(Performed 01/10/2016) * GLUCOSE - POINT OF CARE(Performed 01/10/2016) * BASIC METABOLIC PANEL (CALCIUM TOTAL)(Performed 01/10/2016) * CBC W AUTO DIFFERENTIAL(Performed 01/10/2016) * GLUCOSE - POINT OF CARE(Performed 01/09/2016) * GLUCOSE - POINT OF CARE(Performed 01/09/2016) * GLUCOSE - POINT OF CARE(Performed 01/09/2016) * GLUCOSE - POINT OF CARE(Performed 01/09/2016) * GLUCOSE - POINT OF CARE(Performed 01/09/2016) * TROPONIN I(Performed 01/09/2016) * GLUCOSE - POINT OF CARE(Performed 01/09/2016) * TROPONIN I(Performed 01/09/2016) * ED CRITICAL CARE(Performed 2016) Performed for Shock (HCC), Acute encephalopathy * URINE DRUG SCREEN IMMUNOASSAY(Performed 2016) * URINALYSIS REFLEX MICROSCOPIC REFLEX CULTURE(Performed 2016) * CT HEAD WO CONTRAST(Performed 2016) Performed for Shock (HCC) * XR CHEST 1VW PORTABLE(Performed 2016) Performed for Shock (HCC) * BLOOD GASES ARTERIAL(Performed 2016) * NT-PRO BNP(Performed 2016) * TSH(Performed 2016) * TROPONIN I(Performed 2016) * LACTIC ACID BLOOD(Performed 2016) * ALCOHOL ETHYL BLOOD(Performed 2016) * COMPREHENSIVE METABOLIC PANEL(Performed 2016) * CBC W AUTO DIFFERENTIAL(Performed 2016) * GLUCOSE - POINT OF CARE(Performed 2016) * EKG 12-LEAD(Performed 2016) Performed for Shock (HCC) Results * CARDIAC EKG ORDER (04/07/2022 11:23 AM GARAGE DOOR SERVICE TECHNICIAN) Only the most recent of2 resultswithin the time period is included. Narrative 04/07/2022 11:23 AM GARAGE DOOR SERVICE TECHNICIAN Ordered by an unspecified provider. Scanned Document CARDIAC SERVICES ORD ERABLES * TROPONIN I (04/07/2022 4:43 AM GARAGE DOOR SERVICE TECHNICIAN) Only the most recent of6 resultswithin the time period is included. Pathologist [facility] Troponin I <0.010 <0.032 ng/mL 04/07/2022 5:35 AM GARAGE DOOR SERVICE TECHNICIAN [facility] Blood BLOOD SPECIMEN / Unknown Line Draw / Unknown 04/07/2022 4:43 AM GARAGE DOOR SERVICE TECHNICIAN 04/07/2022 4:59 AM GARAGE DOOR SERVICE TECHNICIAN Shun Ordonez PA-C LAB - CHEMISTRY ROBERTO POSADA [facility] [address] [address], [facility] [phone] * (ABNORMAL) GLUCOSE - POINT OF CARE (04/07/2022 4:32 AM GARAGE DOOR SERVICE TECHNICIAN) Only the most recent of13 resultswithin the time period is included. Pathologist [facility] Glucose WB/POC 228(H) 70 - 115 mg/dL 04/07/2022 4:36 AM GARAGE DOOR SERVICE TECHNICIAN [facility] Specimen Type Cap Fingerstick 2022 4:36 AM [facility] Blood BLOOD SPECIMEN / Unknown 04/07/2022 4:32 AM GARAGE DOOR SERVICE TECHNICIAN 04/07/2022 4:36 AM GARAGE DOOR SERVICE TECHNICIAN Missy Tobar MD LAB - POINT OF CARE ORDERABLES [facility] [address] [place] [address], [facility] [phone] * (ABNORMAL) URINALYSIS REFLEX TO MICROSCOPIC NO CULTURE (04/07/2022 2:03 AM GARAGE DOOR SERVICE TECHNICIAN) Color UA Jennifer(A) Straw, Yellow 04/07/2022 2:19 AM [facility] Clarity UA Cloudy(A) Clear 04/07/2022 2:19 AM [facility] Specific Wayne UA 1.015 1.005 - 1.030 04/07/2022 2:19 AM [facility] pH UA 5.0 5.0 - 8.0 pH 04/07/2022 2:19 AM [facility] Protein UA 2+(A) Negative 04/07/2022 2:19 AM [facility] Glucose UA 3+(A) Negative 04/07/2022 2:19 AM [facility] Ketone UA 1+(A) Negative 04/07/2022 2:19 AM [facility] Bilirubin UA Negative Negative 04/07/2022 2:19 AM [facility] Blood UA Negative Negative 04/07/2022 2:19 AM [facility] Nitrite UA Negative Negative 04/07/2022 2:19 AM [facility] Leukocyte Esterase Negative Negative 04/07/2022 2:19 AM [facility] Urobilinogen UA 4.0(A) Negative mg/dL 04/07/2022 2:19 AM [facility] RBC UA 3-5 None Seen, 0-2, 3-5 /HPF 04/07/2022 2:19 AM [facility] WBC UA 11-20(A) None Seen, 0-5 /HPF 04/07/2022 2:19 AM [facility] Squamous Epithelial Cells UA 0-2 None Seen, 0-2, 3-5 /HPF 04/07/2022 2:19 AM GARAGE DOOR SERVICE TECHNICIAN [facility] Mucus UA 4+ /LPF 04/07/2022 2:19 AM GARAGE DOOR SERVICE TECHNICIAN [facility] Hyaline Casts UA 6-10(A) None Seen, 0-2 /LPF 04/07/2022 2:19 AM GARAGE DOOR SERVICE TECHNICIAN [facility] Urine URINE SPECIMEN OBTAINED BY CLEAN CATCH PROCEDURE / Unknown Collection / Unknown 04/07/2022 2:03 AM GARAGE DOOR SERVICE TECHNICIAN 04/07/2022 2:05 AM GARAGE DOOR SERVICE TECHNICIAN Narrative [facility] - 04/07/2022 2:19 AM GARAGE DOOR SERVICE TECHNICIAN Shun Ordonez PA-C LAB - URINALYSIS ORD ERABLES [facility] [address] [place] [address], [facility] [phone] * CT HEAD WO CONTRAST (04/07/2022 1:29 AM GARAGE DOOR SERVICE TECHNICIAN) Only the most recent of2 resultswithin the time period is included. Anatomical Region Laterality Modality Head Computed Tomogra phy 04/07/2022 1:46 AM GARAGE DOOR SERVICE TECHNICIAN Impressions 04/07/2022 10:17 AM GARAGE DOOR SERVICE TECHNICIAN IMPRESSION: 1.No acute intracranial hemorrhage, midline shift, or significant mass effect. > Dictated by Stuart Levine MD (vice president commercial bank). IPayton MD have personally reviewed and interpreted this examination/study. > Interpreting Provider: Payton Gonzalez MD on 04/07/2022 10:17 AM Narrative 04/07/2022 10:17 AM GARAGE DOOR SERVICE TECHNICIAN PROCEDURE: ??CT HEAD WO CONTRAST, DATE/TIME OF EXAM: ??04/07/2022 1:30 AM, LOCATION ??[facility] INDICATION: R55: Syncope and collapse ADDITIONAL CLINICAL [...] DATE/TIME OF EXAM: 04/07/2022 1:30 AM, LOCATION [facility] INDICATION: R55: Syncope and collapse ADDITIONAL CLINICAL [...] effect. > Dictated by Stuart Levine MD (vice president commercial [employer]). Payton Carroll MD have personally reviewed and interpretedthis examination/study. > Interpreting Provider: Payton Gonzalez MD on 04/07/2022 10:17 AM Missy Tobar MD CT ORDERABLES * (ABNORMAL) COMPREHENSIVE METABOLIC PANEL (04/06/2022 8:52 PM [facility]) Only the most recent of2 resultswithin the time period is included. BUN 6(L) 7 - 26 mg/dL 04/06/2022 9:27 PM [facility] Creatinine 0.82 0.71 - 1.16 mg/dL 04/06/2022 9:27 PM [facility] Sodium 141 136 - 145 mmol/L 04/06/2022 9:27 PM [facility] Potassium 2.5(L) 3.5 - 4.5 mmol/L 04/06/2022 9:27 PM [facility] Chloride 109(H) 98 - 107 mmol/L 04/06/2022 9:27 PM [facility] CO2 21(L) 22 - 29 mmol/L 04/06/2022 9:27 PM [facility] Glucose 186(H) 70 - 115 mg/dL 04/06/2022 9:27 PM [facility] Calcium 7.3(L) 8.4 - 10.2 mg/dL 04/06/2022 9:27 PM [facility] Protein Total 5.5(L) 6.0 - 8.3 g/dL 04/06/2022 9:27 PM [facility] Albumin 3.2(L) 3.4 - 5.0 g/dL 04/06/2022 9:27 PM [facility] Bilirubin Total 0.7 0.2 - 1.2 mg/dL 04/06/2022 9:27 PM [facility] Alkaline Phosphatase 47 40 - 150 U/L 04/06/2022 9:27 PM [facility] ALT 9 5 - 55 U/L 04/06/2022 9:27 PM [facility] AST 7 5 - 34 U/L 04/06/2022 9:27 PM [facility] Anion Gap 14 8 - 18 04/06/2022 9:27 PM [facility] BUN/Creatinine Ratio 7 7 - 23 04/06/2022 9:27 PM [facility] Osmolality Calculated 294 270 - 300 mOsm/kg 04/06/2022 9:27 PM [facility] Albumin/Globulin Ratio 1.4 1.1 - 2.3 04/06/2022 9:27 PM [facility] eGFR by CKD-EPI >90 >=90 mL/min/1.7 3 m2 04/06/2022 9:27 PM [facility] Blood BLOOD SPECIMEN / Unknown Venipuncture / Unknown 04/06/2022 8:52 PM GARAGE DOOR SERVICE TECHNICIAN 04/06/2022 9:00 PM GARAGE DOOR SERVICE TECHNICIAN Shun Ordonez PA-C LAB - CHEMISTRY ORDLuca POSADA [facility] [address] [place] [address], [facility] [phone] * (ABNORMAL) BLOOD GASES DENEEN + COOX PANEL (04/06/2022 7:58 PM GARAGE DOOR SERVICE TECHNICIAN) pH Venous 7.46(H) 7.32 - 7.42 pH 04/06/2022 8:12 PM [facility] pO2 Venous 24(L) 35 - 40 mmHg 04/06/2022 8:12 PM [facility] pCO2 Venous 44 40 - 50 mmHg 04/06/2022 8:12 PM [facility] HCO3 Venous 31.3(H) 20 - 30 mmol/L 04/06/2022 8:12 PM [facility] Base Excess Venous 6.4(H) -2.0 - 2.0 mmol/L 04/06/2022 8:12 PM [facility] Oxyhemoglobin Venous 30.4 % 03/19 8:12 PM [facility] Deoxyhemoglobin (HHB) Venous % 68.6 % 04/06/2022 8:12 PM [facility] Methemoglobin <0.8 0.0 - 2.0 % 04/06/2022 8:12 PM [facility] Carboxyhemoglobin 0.6 0.0 - 2.0 % 2022 8:12 PM [facility] O2 Content Venous 7.2 Interpret within clinical context ml/dL 04/06/2022 8:12 PM [facility] Hemoglobin by COOX 16.9 12.0 - 17.6 g/dL 04/06/2022 8:12 PM [facility] O2 Saturation Venous 31(L) >=70 % 03/19 8:12 PM [facility] FI O2 Mixed Venous 21.0 % 2022 8:12 PM [facility] Blood BLOOD SPECIMEN / Unknown Venipuncture / Unknown 04/06/2022 7:58 PM GARAGE DOOR SERVICE TECHNICIAN 04/06/2022 8:03 PM GARAGE DOOR SERVICE TECHNICIAN Narrative [facility] - 04/06/2022 8:12 PM GARAGE DOOR SERVICE TECHNICIAN Carboxyhemoglobin Normal Concentration: Non-smokers: 0-2%; Smokers: 0-9%; Toxic: >20% Shun Ordonez PA-C LAB - BLOOD GASES OR DERABLES [address] [address], [facility] [phone] * HYDROXYBUTYRATE BETA (04/06/2022 7:58 PM GARAGE DOOR SERVICE TECHNICIAN) Beta-Hydroxybu tyrate <0.50 <0.50 mmol/L 04/06/2022 8:42 PM [facility] Blood BLOOD SPECIMEN / Unknown Venipuncture / Unknown 04/06/2022 7:58 PM GARAGE DOOR SERVICE TECHNICIAN 04/06/2022 8:05 PM GARAGE DOOR SERVICE TECHNICIAN Shun Ordonez PA-C LAB - CHEMISTRY ORDE RABLES [address] [address], [facility] [phone] * (ABNORMAL) CBC W AUTO DIFFERENTIAL (04/06/2022 7:58 PM GARAGE DOOR SERVICE TECHNICIAN) Only the most recent of3 resultswithin the time period is included. WBC 9.8 3.5 - 10.5 10? 3 /uL 04/06/2022 8:09 PM [facility] RBC 5.52 4.30 - 5.70 10? 6 /uL 04/06/2022 8:09 PM [facility] Hemoglobin 16.6 12.0 - 17.6 g/dL 04/06/2022 8:09 PM [facility] Hematocrit 45.8 35.2 - 51.7 % 04/06/2022 8:09 PM [facility] MCV 83.0 80.7 - 98.3 fL 04/06/2022 8:09 PM [facility] MCH 30.1 26.7 - 34.0 pg 04/06/2022 8:09 PM [facility] MCHC 36.2(H) 30.8 - 35.9 g/dL 04/06/2022 8:09 PM [facility] RDW-SD 36.0 36.0 - 50.0 fL 04/06/2022 8:09 PM [facility] RDW-CV 11.9 11.2 - 14.8 % 04/06/2022 8:09 PM [facility] Platelet Count 222 150 - 400 10? 3 /uL 04/06/2022 8:09 PM [facility] MPV 9.5 9.4 - 12.9 fL 04/06/2022 8:09 PM [facility] nRBC Absolute 0.00 0 10? 3 /uL 04/06/2022 8:09 PM [facility] nRBC Auto 0.0 0 /100 WBC 04/06/2022 8:09 PM [facility] Neutrophils % 72.9(H) 35.0 - 70.0 % 04/06/2022 8:09 PM [facility] Lymphocytes % 18.8(L) 20.0 - 43.0 % 04/06/2022 8:09 PM [facility] Monocytes % 5.1 5.0 - 13.0 % 04/06/2022 8:09 PM [facility] Eosinophils % 1.7 0.0 - 6.0 % 04/06/2022 8:09 PM [facility] Basophil % 0.9 0.0 - 2.0 % 04/06/2022 8:09 PM [facility] Neutrophils Absolute 7.17(H) 1.60 - 7.00 10? 3 /uL 04/06/2022 8:09 PM [facility] Lymphocyte Absolute 1.85 1.10 - 3.90 10? 3 /uL 04/06/2022 8:09 PM [facility] Monocytes Absolute 0.50 0.26 - 1.07 10? 3 /uL 04/06/2022 8:09 PM [facility] Eosinophils Absolute 0.17 0.00 - 0.47 10? 3 /uL 04/06/2022 8:09 PM [facility] Basophils Absolute 0.09(H) 0.00 - 0.08 10? 3 /uL 04/06/2022 8:09 PM [facility] Immature Granulocytes % 0.6 0.0 - 1.0 % 04/06/2022 8:09 PM [facility] Immature Granulocytes Absolute 0.06 04/06/2022 8:09 PM [facility] Blood BLOOD SPECIMEN / Unknown Venipuncture / Unknown 04/06/2022 7:58 PM GARAGE DOOR SERVICE TECHNICIAN 04/06/2022 8:05 PM [facility] Shun Ordonez PA-C LAB - HEMATOLOGY ORD ERABLES [facility] [address] [place] [address], [facility] [phone] * EKG 12-LEAD (04/06/2022 7:44 PM GARAGE DOOR SERVICE TECHNICIAN) Only the most recent of2 resultswithin the time period is included. Ventricular Rate 74 BPM [facility] Atrial Rate 74 BPM [facility] P-R Interval 140 ms [facility] QRS Duration ms 86 ms [facility] Q-T Interval ms 406 ms [facility] QTC Calculation (Bezet) 450 ms [facility] Calculated P Wittmann 76 degrees [facility] Calculated R Wittmann -65 degrees [facility] Calculated T Wittmann 20 degrees [facility] Interpretation EKG NORMAL SINUS RHYTHM LEFT ANTERIOR FASCICULAR BLOCK ANTERIOR INFARCT , AGE UNDETERMINED ABNORMAL ECG WHEN COMPARED WITH ECG OF 13-NOV-2007 20:51, CRITERIA FOR ANTERIOR INFARCT IS NOW PRESENT VENT. RATE HAS INCREASED by 19 bpm Confirmed by LUC KAPLAN MD ([id number]) on 04/07/2022 5:25:55 AM [facility] 04/06/2022 7:44 PM GARAGE DOOR SERVICE TECHNICIAN 04/07/2022 5:25 AM GARAGE DOOR SERVICE TECHNICIAN Shun Ordonez PA-C ECG ORDERABLES [facility] * PATHOLOGY TISSUE EXAM (STL) (09/13/2020 9:29 AM CDT) Case Report Surgical Pathology Report ? Case: [id number] ? Authorizing Provider: ??Tr Fofana MD ? Collected: ? 09/13/2020 09:29 AM ? Ordering Location: ? [facility] ?Received: ?09/13/2020 10:45 AM ? Pathologist: ? Ailyn Holland MD ? Specimen: ?Polyp Sigmoid, polyp 1; hot snare removal; clipped ? 09/14/2020 3:44 PM CDT [facility] Final Diagnosis Sigmoid polyp, biopsy: -- Tubular adenoma MC 09/14/2020 3:44 PM CDT [facility] Clinical History Screening colonoscopy. A 14 mm polyp was found in the mid sigmoid colon. 09/14/2020 3:44 PM CDT [facility] Gross Description Received in formalin labeled with patient's name and the sigmoid polyp is a fragment of sanderson tissue measuring a by 7 x 3 mm. The specimen is inked and trisected and submitted entirely in cassette A1. 09/14/2020 3:44 PM CDT [facility] Microscopic Description Sections of the sigmoid polyp reveal a tubular adenoma without high-grade dysplasia. 09/14/2020 3:44 PM CDT [facility] Disclaimer All histochemical and/or immunohistochemical results are interpreted with controls that demonstrate appropriate staining reactions before reporting results. Note on use of immunocytochemistry reagents: This test was developed and its performance characteristic determined by [facility], Department of Laboratory Medicine. It has [...] interpreted with caution. 09/14/2020 3:44 PM CDT [facility] Embedded Images 09/14/2020 3:44 PM CDT [facility] Pathology/Cytolo gy POLYP OF SIGMOID COLON / Unknown 09/13/2020 9:29 AM CDT 09/13/2020 10:45 AM CDT Tr Fofana MD LAB - PATHOLOGY/CYT OLOGY ORDERABLES [facility] [address] [place] [address] * ENDOSCOPY, COLON, SCREENING (09/13/2020 [...] the physician, the nurse and the ? acquisition lead in the procedure room. Mental Status ? [...] Procedure Code(s): ? --- Professional --- ? 19045, Colonoscopy, flexible; with removal of tumor(s), polyp(s), or ? other lesion(s) by snare technique ? --- Technical --- ? 66988, Colonoscopy, flexible; with removal of tumor(s), polyp(s), [...] abscess ? without bleeding CPT copyright 2019 [employer]. All rights reserved. The codes documented in this report are preliminary and upon wood veneer taper review may be revised to meet current compliance requirements. Dr. Tr Fofana MD Tr Fofana MD 09/13/2020 9:33:03 AM This report has been signed electronically. Number of Addenda: 0 Note Initiated On: 09/13/2020 8:05 AM [facility] 09/13/2020 8:05 AM CDT Tr Fofana MD GI PROCEDURE ORDERA BLES Performing Organization Address City/[facility]/ZIP Co de Phone Number [facility] [place] [phone] * HEPATIC FUNCTION PANEL (07/06/2016 3:29 PM CDT) Alkaline Phosphatase 73 38 - 126 U/L 07/06/2016 3:56 PM CDT [facility] ALT 22 13 - 61 U/L 07/06/2016 3:56 PM CDT [facility] AST 14 5 - 40 U/L 07/06/2016 3:56 PM CDT [facility] Protein Total 7.9 6.4 - 8.2 gm/dL 07/06/2016 3:56 PM CDT [facility] Albumin 3.9 3.4 - 5.0 gm/dL 07/06/2016 3:56 PM CDT [facility] Bilirubin Total 0.4 0.2 - 1.0 mg/dL 07/06/2016 3:56 PM CDT [facility] Bilirubin Direct 0.102 0 - 0.3 mg/dL 07/06/2016 3:56 PM CDT [facility] Blood BLOOD SPECIMEN / Unknown Lab Venipuncture / Unknown 07/06/2016 3:29 PM CDT 07/06/2016 3:37 PM CDT Dwayne Hdez [facility] LAB - CHEMISTRY OR DERABLES [facility] [address] [address] * EVENT MONITOR (02/15/2016 2:58 PM GARAGE DOOR SERVICE TECHNICIAN) Narrative Procedure Note Wendy Moulton MD - 01/10/2016 6:25 PM CDT [facility] Cardiology Department EVENT MONITOR PATIENT NAME: LUIS DANIEL FORD MR#: [id number] : 1955 AGE: 60 CSN: [id number] SEX: M ADMIT: 2016 INTERPRETING PHYSICIAN: WENDY [...] 30-day event monitor. WENDY MOULTON MD JLS/MODL /[id number] EVENT MONITOR - Kale Rocha MD CARDIAC SERVI HUE ORDERABLES [facility] MEDQU[facility] * IP CONSULT TO ELECTROPHYSIOLOGY (01/25/2016 6:23 PM GARAGE DOOR SERVICE TECHNICIAN) Narrative Procedure Note Yvonne Sam, TECHNOLOGY EDUCATION TEACHER-REAL ESTATE INSPECTOR - 01/10/2016 1:53 PM CDT CARDIAC ELECTROPHYSIOLOGY INITIAL INPATIENT CONSULTATION Patient Name: Luis Daniel Ford Admit Date: 2016 Primary Care Physician: [place] [id number] [facility] [address] [place] [address] Consult Date: 01/10/2016 Requesting Physician: Aj Chen MD Reason For Consultation: Bradycardia; symptomatic History of Present Illness: Luis Daniel Frod is a 61 year old male whose medical historyinclude HTN, DM (diagnosed 3 years ago) and Hypothyroidism. [facility] for symptomatic bradycardia andhypotension. Dr. 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 [...] PLTCOUNT [id number] Recent Labs Component Name 01/10/167 01/08/162009 SODIUM 134* 136 POTASSIUM 4.0 3.5 CHLORIDE 103 99 CO2 25 28 BUN 15 15 CREATININE 0.87 1.28 GLUCOSE 328* 176* CALCIUM 8.4* 8.6 ALBUMIN - 3.9 ALKPHOS - 83 ALT - 20 AST - 10 TBIL - 0.5 TPROT - 7.9 EGFR >60 57* No results for input(s): MAGMGDL in the last 78676 hours. Recent Labs Component Name 01/08/162009 TSH 11.9* Recent Labs Component Name 01/09/16 0333 01/09/16 0030 01/08/162009 TROPONIN <0.015 <0.015 <0.015 No results for input(s): CKMBNGML in the last 81618 hours. ECG: EKG Interp Final Normal sinus [...] of this very pleasantpatient. Yvonne Sam NP [facility] (phone) (fax) CC: Sebastian Noguera MD [address] [place] [address] [address] [facility] [address] Kale Rocha MD INPATIENT CON SULT ORDERABLES * CARDIAC RHYTHM STRIP ORDER (01/11/2016 10:23 PM CDT) Narrative 01/11/2016 10:23 PM CDT Ordered by an unspecified provider. Scanned Document CARDIAC SERVICES ORD ERABLES * ECHOCARDIOGRAM 2D WITH DOPPLER (01/10/2016 1:08 PM CDT) 01/10/2016 1:08 PM CDT Narrative [facility] - 01/10/2016 2:51 PM CDT Transthoracic Echocardiogram 2D, M-mode, Doppler, and Color Doppler Patient: LUIS DANIEL FORD MR number: [id number] Height: 77 in Weight: 275.4 lb BSA: 2.57 m?? Study date: 10-Jan-2016 : 1955 Age: 61 years Gender: Male Race: Wellness Director: ??DOMINGA Cummings, RDCS Ordering Physician: ??Aj Chen MD Reading Physician: [...] Doppler Patient: LUIS DANIEL FORD MR number: [id number] Height: 77 in Weight: 275.4 lb BSA: 2.57 m?? Study date: 10-Jan-2016 : 1955 Age: 61 years Gender: Male Race: Wellness Director: DOMINGA Cummings, RDCS Ordering Physician: Aj Chen [...] 14:50:40 Kale Rocha MD ECHO ORDERABL ES [facility] [address] [place] [address] * (ABNORMAL) BASIC METABOLIC PANEL (CALCIUM TOTAL) (01/10/2016 3:27 AM CDT) Glucose 328(H) 74 - 106 mg/dL 01/10/2016 4:15 AM CDT [facility] Sodium 134(L) 136 - 145 mmol/L 01/10/2016 4:15 AM CDT [facility] Potassium 4.0 3.5 - 5.1 mmol/L 01/10/2016 4:15 AM CDT [facility] Chloride 103 98 - 107 mmol/L 01/10/2016 4:15 AM CDT [facility] CO2 25 22 - 31 mmol/L 01/10/2016 4:15 AM CDT [facility] Calcium 8.4(L) 8.5 - 10.1 mg/dL 01/10/2016 4:15 AM CDT [facility] Anion Gap 6 5 - 20 mmol/L 01/10/2016 4:15 AM CDT [facility] BUN 15 7 - 21 mg/dL 01/10/2016 4:15 AM CDT [facility] Creatinine 0.87 0.50 - 1.30 mg/dL 01/10/2016 4:15 AM CDT [facility] eGFR by MDRD >60 >60 mL/min/1.7 3m2 01/10/2016 4:15 AM CDT [facility] eGFR by MDRD >60 >60 mL/min/1.7 3m2 01/10/2016 4:15 AM CDT [facility] Blood BLOOD SPECIMEN / Unknown Lab Venipuncture / Unknown 01/10/2016 3:27 AM CDT 01/10/2016 3:58 AM CDT Kayleigh Hall DO LAB - CHEMISTRY ORD ERABLES [facility] [address] [id number] * ED CRITICAL CARE (2016 11:36 PM CDT) Narrative Ingris Ascencio DO - 2016 11:36 PM CDT Ingris Ascencio, ? 2016 11:36 PM Critical Care Performed [...] Ascencio DO PROCEDURE/MINOR SURG ICAL ORDERABLES * (ABNORMAL) URINALYSIS ROUTINE W/REFLEX TO CULTURE (2016 11:22 PM CDT) Color UA Yellow Straw, Yellow, Dark Yellow 2016 11:35 PM CDT [facility] Clarity UA Clear 2016 11:35 PM CDT [facility] Specific [place] UA >1.030(H) 1.005 - 1.030 2016 11:35 PM [facility] pH UA 5.5 5.0 - 8.0 pH 2016 11:35 PM [facility] Protein UA 1+(A) Negative 2016 11:35 PM T [facility] Blood UA Negative Negative 2016 11:35 PM [facility] Leukocyte UA Negative Negative 2016 11:35 PM [facility] Nitrite UA Negative Negative 2016 11:35 PM [facility] Glucose UA 3+(A) Negative 2016 11:35 PM [facility] Ketone UA Trace(A) Negative 2016 11:35 PM [facility] Bilirubin UA Negative Negative 2016 11:35 PM [facility] Urobilinogen UA 0.2 0.1 - 1.0 EU/dL 2016 11:35 PM [facility] WBC UA Auto 0-2 0-2, 2-5 # /hpf 2016 11:35 PM [facility] RBC UA Auto 2-5 0-2, 2-5 # /hpf 2016 11:35 PM [facility] Epithelial Cell UA Auto 0-2 0-2, 2-5 # /hpf 2016 11:35 PM [facility] Hyaline Casts UA Auto 5-10(A) 0 - 2 #/lpf 2016 11:35 PM [facility] Reflex Status Culture not indicated 2016 11:35 PM [facility] Urine URINE SPECIMEN OBTAINED BY CLEAN CATCH PROCEDURE / Unknown 2016 11:22 PM CDT 2016 11:25 PM T Ingris Ascencio DO LAB - URINALYSIS ORD ERABLES [facility] [address] [place] [id number] * DRUG SCREEN TOX URINE PANEL (2016 11:22 PM CDT) Amphetamines Screen Urine Not Detected Not Detected 2016 11:41 PM CDT [facility] Barbiturates Screen Urine Not Detected Not Detected 2016 11:41 PM CDT [facility] Benzodiazepines Screen Urine Not Detected Not Detected 2016 11:41 PM CDT [facility] Cannabinoids Screen Urine Not Detected Not Detected 2016 11:41 PM CDT [facility] Cocaine Screen Urine Not Detected Not Detected 2016 11:41 PM T [facility] Methadone Screen Urine Not Detected Not Detected 2016 11:41 PM T [facility] Opiate Screen Urine Not Detected Not Detected 2016 11:41 PM CDT [facility] Phencyclidine Screen Urine Not Detected Not Detected 2016 11:41 PM CDT [facility] Urine URINE / Unknown 2016 1 1:22 PM CDT 2016 11:25 PM CDT Narrative [facility] - 2016 11:41 PM CDT [...] DO LAB - URINE CHEMISTR Y ORDERABLES [facility] [address] [id number] * XR CHEST 1VW PORTABLE (2016 8:24 [...] grammatical or syntax problems by a trained electromedical service engineer. For questions about the report, please contact [...] grammatical or syntax problems by a trained electromedical service engineer. For questions about the report, please contact [...] 2016 8:32 PM CDT [facility] Programming Instructor ID VANGIE SPENCER 2016 8:32 PM CDT [facility] Blood ARTERIAL BLOOD SPECIMEN / Unknown 2016 8:24 PM CDT 2016 8:24 PM CDT Ingris Ascencio DO LAB - BLOOD GASES OR DERABLES [facility] [address] [place] [id number], [facility] * NT-PRO BNP (2016 8:10 PM CDT) NT-proBNP 25.0 <300.0 pg/mL 2016 8:38 PM CDT [facility] Blood BLOOD SPECIMEN / Unknown Venipuncture / Unknown 2016 8:10 PM CDT 2016 8:18 PM CDT Narrative [facility] - 2016 8:38 PM CDT [...] - CHEMISTRY ROBERTO POSADA Performing Organization Address City/[facility]/ZIP Co de Phone Number [facility] [address] [place] [id number] * (ABNORMAL) LACTIC ACID BLOOD (2016 8:10 PM CDT) Pathologist [facility] Lactic Acid 3.1(H) 0.7 - 2.1 mmol/L 2016 8:42 PM CDT [facility] Blood BLOOD SPECIMEN / Unknown Venipuncture / Unknown 2016 8:10 PM CDT 2016 8:18 PM CDT Ingris Ascencio DO LAB - CHEMISTRY ROBERTO POSADA [facility] [address] [place] [id number] * ALCOHOL ETHYL BLOOD (2016 8:10 PM CDT) Ethanol <3 <10 mg/dL 2016 8:38 PM CDT [facility] Ethanol Calculated <0.100 gm/dL 2016 8:38 PM CDT [facility] Comment:Not Calculated Blood BLOOD SPECIMEN / Unknown Venipuncture / Unknown 2016 8:10 PM CDT 2016 8:18 PM CDT Narrative [facility] - 2016 8:38 PM CDT Non Legal Serum Alcohol Ingris Ascencio DO LAB - CHEMISTRY ORDLuca POSADA [facility] [address] [address] * (ABNORMAL) TSH (2016 8:10 PM CDT) TSH 11.9(H) 0.358 - 3.740 uIU/mL 2016 8:51 PM CDT [facility] Blood BLOOD SPECIMEN / Unknown Venipuncture / Unknown 2016 8:10 PM CDT 2016 8:18 PM CDT Ingris Ascencio DO LAB - CHEMISTRY ROBERTO POSADA [facility] [address] [address] Care Teams Putty Maker Relationship Specialty Start Date End Date Sebastian Noguera Jr., MD PCP - General Family Medicine 01/08/16
--- OUTSIDE RECORDS SUMMARY | 2024-04-06 23:59 | XMS_ITS | Encounter Summary ---
Author Organization [facility] Address [address] [place] [address] Care Team Providers Care Hand Mounter Name Role Phone Chuckie Chavira MD, Sebastian Archer Primary Care Provider [phone] Reason for Referral * Radiology Services (Routine) - Closed Specialty Diagnoses / Procedures Referred By Contac t Referred To Contact Diagnoses Venous insufficiency Procedures US VENOUS [place] [address] [address] Phone: tel: fax: Referral ID Status Reason Start Date Expiration Date Visits Re quested Visits Authorized [id number] Closed 09/02/2020 10/03/2021 1 1 * Radiology Services (Routine) - Closed Specialty Diagnoses / Procedures Referred By Contac t Referred To Contact Diagnoses 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 Procedures US ANKLE [place] [address] [address] Phone: tel: fax: Referral ID Status Reason Start Date Expiration Date Visits Re quested Visits Authorized [id number] Closed 09/02/2020 10/03/2021 1 1 Reason for Visit * Reason Comments Vascular Consult ref by Dr Ketty DONNELLY M PAD Encounter Details Date Type Department Care Team (Late st Contact Info) Description 09/02/2020 11:30 AM CDT Office Visit [facility] Vascular - [address] [facility] [address] [id number] [facility] [address] [place] [address] [place] [address] [facility] [address] [place] [address] Venous insufficiency; 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 Social History Tobacco Use Types Packs/Day Years Used Date Smoking Tobacco: Never Smokeless Tobacco: Never Alcohol Use Standard Drinks/Week Comments Yes 0 (1 standard drink = 0.6 oz pur e alcohol) 6/week Sex and Gender Information Value Date Recorded Sex Assigned at Not on file Legal Sex Male 11:45 AM CDT Gender Identity Not on file Sexual Orientation Not on file COVID-19 Exposure Response Date Recorded In the last month, have you been in contact with someone who was confirmed or suspected to have Coronavirus / COVID-19? No / Unsure 09/02/2020 11:20 AM CDT documented as of this encounter Last Filed Vital Signs Vital Sign Reading Time Taken Comments Blood Pressure 140/80 09/02/2020 11:41 AM CDT Pulse 78 09/02/2020 11:41 AM CDT Temperature - - Respiratory Rate - - Oxygen Saturation 96% 09/02/2020 11:41 AM CDT Inhaled Oxygen Concentration - - Weight 127 kg (280 lb) 09/02/2020 11:41 AM CDT Height 185.4 cm (6' 1 ) 09/02/2020 11:41 AM CDT Body Mass Index 36.94 09/02/2020 11:41 AM CDT documented in this encounter Progress Notes * Olayinka Pollack MD - 09/02/2020 12:22 PM CDT Images from the original note were not included. Luis Daniel Ford : 1955 Age: 65 y.o. Cardiovascular/Endovascular Medicine Consult Note Date of Consult: 09/02/2020 Patient's Primary Care Physician: Sebastian Noguera Jr., MD Physician Requesting Consult: Dwayne Hdez DPM Indication for Consultation: Advice and opinion regarding: Left LE cellulitis, PVD History of Present Illness: Through the courtesy of your referral I saw Luis Daniel Ford, in the office today in consultation. This is a 65 y.o. male with co morbidities as noted below and significant for longstanding diabetes who was seen by Dr. Hdez for chronic ulceration on the medial aspect ofthe left heel associated with cellulitis. Patient also states that he has had asymmetric left lowerextremity edema for a while. His ambulation is mostly limited with neuropathic symptoms mostly fromdiabetic neuropathy. He states that with wound care with Dr. Hdez and the prescribed antibioticsthe cellulitis has disappeared with the ulceration significantly improving. However continues to complain of the asymmetric left lower extremity edema with the left significantly worse than the right. He has no symptoms of angina, orthopnea, PND ? No Known Allergies Medications: Current Outpatient Medications Medication Sig Dispense Refill ??? doxycycline hyclate (VIBRAMYCIN) 100 mg capsule Take 100 mg by mouth 2 times daily. ??? insulin lispro (HumaLOG KwikPen Insulin) 100 unit/mL pen syringe INJECT UP TO 120 UNITS PER DAYIN DIVIDED DOSES DIRECTED ON SLIDING SCALE ??? levothyroxine 100 mcg tablet Take 100 mcg by mouth daily . ??? lisinopril (PRINIVIL) 20 mg tablet Take 20 mg by mouth daily . ??? ONETOUCH ULTRA TEST Strip ??? NOVOLOG FLEXPEN 100 unit/mL Insulin Pen Inject by subcutaneous injection 8 units AM, 7 units atlunch, 8 units with supper, plus sliding scale. No current facility-administered medications for this visit. Past Medical History: Past Medical History: Diagnosis Date ??? Bradycardia ??? Diabetes ??? HTN (hypertension) ??? Numbness and tingling of right leg ??? Obstructive sleep apnea (adult) (pediatric) according to ??? Thyroid disease hypothyroidism ??? Wears glasses Past Surgical History: Procedure Laterality Date ??? HX TONSILLECTOMY ??? AR ARTHRS KNE SURG W/MENISCECTOMY MED/LAT W/SHVG Right 06/22/2015 KNEE ARTHROSCOPY RIGHT WITH PARTIAL MEDIAL MENISCECTOMY, SUBTOTAL TRI COMPARTMENTAL CHONDRAL SHAVING performed by Addison Sanchez Jr., DO at [facility] OR Patient Active Problem List Diagnosis Code ??? Acute medial meniscus tear of right knee S83.241A ??? Status post arthroscopic surgery of right knee Z98.890 ??? Venous insufficiency I87.2 ??? 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 Cancer Father pancreat ??? Parkinson's Disease Father ??? Cancer Mother Pancreat Social History: Social History Socioeconomic History ??? Marital status: Spouse name: Not on file ??? Number of children: Not on file ??? Years of education: Not on file ??? Highest education level: Not on file Occupational History ??? Not on file Tobacco Use ??? Smoking status: Never Smoker ??? Smokeless tobacco: Never Used Vaping Use ??? Vaping Use: Never used Substance and Sexual Activity ??? Alcohol use: Yes Alcohol/week: 0.0 standard drinks Comment: 6/week ??? Drug use: No ??? Sexual activity: Not on file Other Topics Concern ??? Not on file Social History Narrative ??? Not on file [...] Gatherings with Friends and Family: ??? Attends Buddhism Services: ??? Active Member of Clubs or Organizations: ??? Attends Club or Organization Meetings: ??? Marital Status: Intimate Partner Violence: ??? Fear of Current or Ex-Partner: ??? Emotionally Abused: ??? Physically Abused: ??? Sexually Abused: Review of Systems: No recent symptoms of a TIA/CVA No dysphagia, odynophagia. No recent changes in vision, hearing No fever, chills No cough, pleuritic chest pain No angina, Orthopnea, PND No abdominal pain, Nausea, vomiting No systemic bleeding like melena, hematemesis No recent unintentional wt loss, night sweats As above, all others systems negative. Physical exam: Vitals: 09/02/20 1141 BP: (!) 140/80 Pulse: 78 SpO2: 96% Weight: 127 kg (280 lb) Height: 6' 1 (1.854 m) Pleasant, well appearing in no acute distress. EYE: Puplis equal round and reactive. Conjunctiva clear HEENT: Mucous membranes moist. Lips without lesions. Oropharynx normal Neck: Trachea mid line. No masses or definite thyromegaly noted. Lungs: Unlaboured respiration. Clear to auscultation bilaterally without wheezes, rales or rhonchi Cardiac: Heart sounds S1, S2 were regular. No pallable thrills. No definite murmur, rubs or gallops Abdomen: Soft non tender. No definite organomegaly, pulsatile masses or bruits Extremities: Warm extremities left significantly worse than the right lower extremity edema Vascular: Bilateral femoral were normal. Bilateral dorsalis pedis pulses 2+. Left posterior tibial pulse was difficult to feel with the edema skin: Signs of venous insufficiency with reticular veins, hyperpigmentation Neuro/Psych : Alert, oriented with no gross motor deficits. Normal affect MS: Grossly unremarkable ? Data: No results for input(s): WBC, HGB, HCT in the last 72 hours. Invalid input(s): PLTCOUNT No results for input(s): BUN, CREATININE, GLUCOSE in the last 72 hours. Invalid input(s): SODIUM, POTASSIUM No results for input(s): BNP in the last 72 hours. No results for input(s): TROPONIN in the last 72 hours. Invalid input(s): MAGMGDL No results for input(s): LDLCALC, HDL in the last 72 hours. Invalid input(s): TRIG No results for input(s): TSH in the last 72 hours. No results for input(s): INR in the last 72 hours. Procedures Impression/Plan: ICD-10-CM ICD-9-CM 1. Venous insufficiency I87.2 459.81 US VENOUS REFLUX BILATERAL 2. 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 Based on his physical examination this does not appear to be the case. With antibiotics and wound care with Dr. Hdez the chronic ulceration appears to be improving. Depending on the results ofthis we can decide if warrants any further arterial testing. The asymmetric left lower extremity edema is likely from venous insufficiency. He certainly has signs and symptoms of the same. I will get venous reflux testing to see if he has significant superficial vein reflux disease. Also down the line potentially would benefit from an evaluation for proximaldeep vein compression (Jacinda Cummings). I have given him a prescription for support stockings. I will also get him to see Dr. Peres in our vein center. Thank you for allowing me to participate in the care of your patient. Do not hesitate to call with question or concerns. ? Olayinka Pollack MD [facility] Interventional Cardiology Vascular/Endovascular Medicine [facility] documented in this encounter Plan of Treatment Not on file documented as of this encounter Results * US VENOUS REFLUX BILATERAL (10/04/2020 4:43 PM CDT) Anatomical Region Laterality Modality Lower Extremity Ultrasound 10/04/2020 3:40 PM CDT Narrative 10/04/2020 10:16 PM CDT [facility] Heart and Vascular Testing Venous Exam Venous Reflux Evaluation -- Patient: ? RustyAlfredito bucknermaria luisa Massey MRN: ? [id number] Study ID: ?[id number] Gender: ?M : ? 1955 Age: ? 65 Race: ?CAU Height ? 185.4cm Study Date: ?10/04/2020 Weight: ?127kg Access. #: ? [id number] Account #: ? [id number] -- -- *Referring Physician:* Olayinka Pollack M.D. *Ordering Physician:* ??Olayinka Pollack M.D. Stripper Soft Plastic: ? AM -- Study data: ?? Study status: ??Routine. ?Venous reflux evaluation. Bilateral evaluation with greyscale and Doppler imaging and reflux maneuvers performed with the patient in the standing position with inflation cuffs. Birthdate: ??Patient birthdate: 1955. ??Age: ??Patient is 65yr old. ??Sex: gender: male. ??Height: ??185.4cm. 73in. ??Weight: ??127kg. : 279.4lb. ??Body mass index: ??BMI: 36.9kg/m^2. ??Body surface area: ?BSA: 2.6m^2. ??Study date: Study date: 10/04/2020. Study time: 03:40 PM. ??Patient status: ??Outpatient. Impressions -- 1. No evidence of deep or superficial vein thrombosis involving the visualized ?? veins of the bilateral lower extremities. 2. Venous reflux was identified in bilateral lower extremities as described in ?? the table below. -- Tables: Venous reflux table: -- + + +------+---+ + +------+---+ + Rt DVT +/- Rt SVT +/- Rt ? Rt Location ?? Lt SVT +/- Lt ? Lt Lt DVT +/- ? Diamet Ref ? Diamet Ref ? er ? lux ? er ? lux ? (ms ? (ms ? ) ? ) ? + + +------+---+ + +------+---+ + negative ?? ------ --- CFV ? ------ --- negative ?? + + +------+---+ + +------+---+ + negative ?? ------ --- FV ? ------ --- negative ?? + + +------+---+ + +------+---+ + negative ?? ------ >10 Pop V ? ------ >10 negative ? 00 ? 00 ? ms ? ms ? + + +------+---+ + +------+---+ + negative ?? 9.6mm > ?? SFJ ? negative ?? 9.2mm > ? 500 ? 500 ? ms ? ms ? + + +------+---+ + +------+---+ + negative ?? 9.7mm > ?? GSV distal negative ?? 7.0mm > ? 500 to SFJ ? 500 ? ms ? ms ? + + +------+---+ + +------+---+ + negative ?? 9.7mm --- GSV ? negative ?? 7.0mm > ? proximal ? 500 ? thigh ? ms ? + + +------+---+ + +------+---+ + negative ?? 4.2mm > ?? GSV knee ?? negative ?? 5.8mm > ? 500 level ? 500 ? ms ? ms ? + + +------+---+ + +------+---+ + negative ?? 3.6mm --- Accessory negative ?? 3.5mm --- ? vein ? + + +------+---+ + +------+---+ + negative ?? 5.6mm > ?? SPJ ? negative ?? 5.4mm > ? 500 ? 500 ? ms ? ms ? + + +------+---+ + +------+---+ + negative ?? 5.3mm > ?? SSV ? negative ?? 3.7mm > ? 500 ? 500 ? ms ? ms ? + + +------+---+ + +------+---+ + -- Prepared and Electronically Authenticated Ranjeet Quintana M.D. [id number] Procedure Note Ranjeet Quintana MD - 10/04/2020 [facility] Venous Exam Venous Reflux Evaluation -- Patient: Luis Daniel Ford Study ID: [id number] Gender: M : 1955 Age: 65 Race: CAU Height 185.4cm Study Date: 10/04/2020 Weight: 127kg Access. #: [id number] -- -- *Referring Physician:* Olayinka Pollack M.D. *Ordering Physician:* Olayinka Pollack M.D. Stripper Soft Plastic: GURDEEP -- Study data: Study status: Routine. Venous reflux evaluation. Bilateral evaluation with greyscale and Doppler imaging and refluxmaneuvers performed with the patient in the standing position with inflationcuffs. Birthdate: Patient birthdate: 1955. Age: Patient is 65yr old.Sex: gender: male. Height: 185.4cm. 73in. Weight: 127kg. : 279.4lb.Body mass index: BMI: 36.9kg/m^2. Body surface area: BSA: 2.6m^2. Studydate: Study date: 10/04/2020. Study time: 03:40 PM. Patient status:Outpatient. Impressions -- 1. No evidence of deep or superficial vein thrombosis involving thevisualized veins of the bilateral lower extremities. 2. Venous reflux was identified in bilateral lower extremities asdescribed in the table below. -- Tables: Venous reflux table: -- + + +------+---+ + +------+---+ + Rt DVT +/- Rt SVT +/- Rt Rt Location Lt SVT +/- Lt Lt Lt DVT+/- Diamet Ref Diamet Ref er lux er lux (ms (ms ) ) + + +------+---+ + +------+---+ + negative ------ --- CFV ------ --- negative + + +------+---+ + +------+---+ + negative ------ --- FV ------ --- negative + + +------+---+ + +------+---+ + negative ------ >10 Pop V ------ >10 negative 00 00 ms ms + + +------+---+ + +------+---+ + negative 9.6mm > SFJ negative 9.2mm > 500 500 ms ms + + +------+---+ + +------+---+ + negative 9.7mm > GSV distal negative 7.0mm > 500 to SFJ 500 ms ms + + +------+---+ + +------+---+ + negative 9.7mm --- GSV negative 7.0mm > proximal 500 thigh ms + + +------+---+ + +------+---+ + negative 4.2mm > GSV knee negative 5.8mm > 500 level 500 ms ms + + +------+---+ + +------+---+ + negative 3.6mm --- Accessory negative 3.5mm --- vein + + +------+---+ + +------+---+ + negative 5.6mm > SPJ negative 5.4mm > 500 500 ms ms + + +------+---+ + +------+---+ + negative 5.3mm > SSV negative 3.7mm > 500 500 ms ms + + +------+---+ + +------+---+ + -- Prepared and Electronically Authenticated Ranjeet Quintana M.D. [id number]:00 us Olayinka Pollack MD ORDERABLES Final Result * US ANKLE PRESSURE INDEX (10/04/2020 3:18 PM CDT) Anatomical Region Laterality Modality Lower Extremity Ultrasound 10/04/2020 2:41 PM CDT Narrative 10/04/2020 10:00 PM CDT [facility] KORTNEY Arterial Physiologic Evaluation -- Patient: ? Luis Daniel Ford MRN: ? [id number] Study ID: ?[id number] Gender: ?M : ? 1955 Age: ? 65 Race: ?CAU Height ? 185.4cm Study Date: ?10/04/2020 Weight: ?113.6kg Access. #: ? [id number] Account #: ? [id number] -- -- *Referring Physician:* Olayinka Canela M.D., M.D. *Ordering Physician:* ??Olayinka Pollack M.D. Stripper Soft Plastic: ? ACD -- Indications: ?? PVD. Study data: ?? Study status: ??Routine. ??Procedure: ?? Ankle and brachial pressures were indexed and Doppler waveforms obtained at the ankle. ?KORTNEY. ?? Ankle-brachial index. ??Birthdate: ??Patient birthdate: 1955. ??Age: Patient is 65yr old. ??Sex: ?? gender: male. ??Height: ??185.4cm. 73in. Weight: ??113.6kg. : 250lb. ??Body mass index: ??BMI: 33.1kg/m^2. ??Body surface area: ?BSA: 2.45m^2. ??Study date: ??Study date: 10/04/2020. Study time: 02:41 PM. ??Location: ??Vascular laboratory. ??Patient status: ??Outpatient. Impressions -- 1. Normal arterial insufficiency at rest involving the right lower extremity. 2. Normal arterial insufficiency at rest involving the left lower extremity. -- Arterial evaluation findings: Right: -- 1. Right KORTNEY: 1.42. This is within the normal range at rest. 2. Continuous wave Doppler of the right leg vessels appears normally ?? triphasic. 3. Right first digit pressure is within normal limits. 4. Digit photoplethysmography (PPG) demonstrates normal waveforms on the ?? right. -- Left: -- 1. Left KORTNEY: 1.26. This is within the normal range at rest. 2. Continuous wave Doppler of the left leg vessels is appears normally ?? triphasic. 3. Left first digit pressure is within normal limits. 4. Digit photoplethysmography (PPG) demonstrates normal waveforms on the ?? left. -- Tables: Brachial pressures: -- +--------+ + + + ? Right ? Left ? Max ? +--------+ + + + Systolic R(sys): 125mm Hg L(sys): 132mm Hg Max: 132mm Hg +--------+ + + + -- KORTNEY and Stress table: -- +----+----+--------+----+----+----+--------+----+----+--------+----+----+----+ R PT R DP R Toe ?? R PT R DP R ?? Brachial L PT L DP L Toe ?? L PT L DP L ? inde inde Toe ? inde inde Toe ? x ?? x ?? inde ? x ?? x ?? inde ? x ? x ?? +----+----+--------+----+----+----+--------+----+----+--------+----+----+----+ 188 186 177mm Hg 1.42 1.41 1.34 132mm Hg 166 156 160mm Hg 1.26 1.18 1.21 +----+----+--------+----+----+----+--------+----+----+--------+----+----+----+ -- Prepared and Electronically Authenticated Ranjeet Quintana M.D. [id number] Procedure Note Ranjeet Quintana MD - 10/04/2020 [facility] KORTNEY Arterial Physiologic Evaluation -- Patient: Luis Daniel Ford Study ID: 1 Gender: Bryson : 1955 Age: 65 Race: FANNIE Height 185.4cm Study Date: 10/04/2020 Weight: 113.6kg Access. #: [id number] -- -- *Referring Physician:* Olayinka Canela M.D., M.D. *Ordering Physician:* Olayinka Pollack M.D. Stripper Soft Plastic: ACD -- Indications: PVD. Study data: Study status: Routine. Procedure: Ankle and brachial pressures were indexed and Doppler waveforms obtained at the ankle.KORTNEY. Ankle-brachial index. Birthdate: Patient birthdate: 1955.Age: Patient is 65yr old. Sex: gender: male. Height: 185.4cm. 73in. Weight: 113.6kg. : 250lb. Body mass index: BMI: 33.1kg/m^2. Bodysurface area: BSA: 2.45m^2. Study date: Study date: 10/04/2020. Study time:02:41 PM. Location: Vascular laboratory. Patient status: Outpatient. Impressions -- 1. Normal arterial insufficiency at rest involving the right lowerextremity. 2. Normal arterial insufficiency at rest involving the left lowerextremity. -- Arterial evaluation findings: Right: -- 1. Right KORTNEY: 1.42. This is within the normal range at rest. 2. Continuous wave Doppler of the right leg vessels appears normally triphasic. 3. Right first digit pressure is within normal limits. 4. Digit photoplethysmography (PPG) demonstrates normal waveforms on the right. -- Left: -- 1. Left KORTNEY: 1.26. This is within the normal range at rest. 2. Continuous wave Doppler of the left leg vessels is appears normally triphasic. 3. Left first digit pressure is within normal limits. 4. Digit photoplethysmography (PPG) demonstrates normal waveforms on the left. -- Tables: Brachial pressures: -- +--------+ + + + Right Left Max +--------+ + + + Systolic R(sys): 125mm Hg L(sys): 132mm Hg Max: 132mm Hg +--------+ + + + -- KORTNEY and Stress table: -- +----+----+--------+----+----+----+--------+----+----+--------+----+----+----+ R PT R DP R Toe R PT R DP R Brachial L PT L DP L Toe L PT L DP L inde inde Toe inde inde Toe x x inde x x inde x x +----+----+--------+----+----+----+--------+----+----+--------+----+----+----+ 188 186 177mm Hg 1.42 1.41 1.34 132mm Hg 166 156 160mmHg 1.26 1.18 1.21 +----+----+--------+----+----+----+--------+----+----+--------+----+----+----+ -- Prepared and Electronically Authenticated Ranjeet Quintana M.D. [id number]:42 Olayinka Pollack MD ORDERABLES Final Result documented in this encounter Visit Diagnoses Diagnosis Venous insufficiency Unspecified venous (peripheral) insufficiency 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 Venous insufficiency Unspecified venous (peripheral) insufficiency documented in this encounter Care Teams Hand Mounter Relationship Specialty Start Date End Date Sebastian Noguera Jr., MD PCP - General Family Practice 06/02/15 documented as of this encounter
--- OUTSIDE RECORDS SUMMARY | 2024-04-06 23:59 | XMS_ITS | Clinical Summary ---
Author Organization [facility] Address [address] [address] [place] [address] Phone Care Team Providers Care Cell Operator Name Role Phone Chuckie Chavira MD, Sebastian Archer Primary Care Provider [phone] [phone] Allergies No known active allergies Medications NOVOLOG FLEXPEN 100 unit/mL Insulin Pen Inject by subcutaneous injection 8 units AM, 7 units at lunch, 8 units with supper, plus sliding scale. 6 Active levothyroxine 100 mcg tablet Take 100 mcg by mouth daily . 6 Active lisinopril (PRINIVIL) 20 mg tablet Take 20 mg by mouth daily . 6 Active ONETOUCH ULTRA TEST Strip 6 Active insulin lispro (HumaLOG KwikPen Insulin) 100 unit/mL pen syringe INJECT UP TO 120 UNITS PER DAY IN DIVIDED DOSES DIRECTED ON SLIDING SCALE 0 Active OTHER Compression 20-30 Thigh High [id number] - Right Leg $45.00 [id number]- Left Leg $55.00 2 Each 2 09/02/2020 4:31 PM CDT 1 Active Active Problems Patient Care Coordination No te Formatting of this note migh t be different from the original. Vascular Shrimp Pond Laborer - Dr. Olayinka Pollack MD, [facility], [facility] Heart and Vascular - [address] [facility] [address] Hdez - DPM Dr. Peres - Vein center Problem Noted Date Diagnosed Date Chronic venous hypertension 11/29/2020 Chronic foot ulcer 11/29/2020 Venous insufficiency 09/02/2020 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 09/02/2020 Status post arthroscopic surgery of right knee 0 07/07/2015 Acute medial meniscus tear of right knee 016 Family History Medical History Relation Name Comments Cancer Father pancreat Parkinson's Disease Father Cancer Mother Pancreat Varicose Veins Sister Relation Name Status Comments Father (Age 95) Mother (Age late 80's) Sister Social History Tobacco Use Types Packs/Day Years [...] Sign Reading Time Taken Comments Blood Pressure 122/60 11/29/2020 1:51 PM CDT Pulse 84 11/29/2020 1:51 PM CDT Temperature 36.2 ??C (97.2 ??F) 06/22/2015 1 1:00 AM CDT Respiratory Rate 22 06/22/2015 12:0 4 PM CDT Oxygen Saturation 96% 09/02/2020 11: 41 AM CDT Inhaled Oxygen Concentration - - Weight 120.7 kg (266 lb 3.2 oz) 11/29/2020 1:51 PM CDT Height 185.4 cm (6' 1 ) 11/29/2020 1:51 PM CDT Body Mass Index 35.12 11/29/2020 1:51 PM CDT Plan of Treatment Health Maintenance Due Date Last Done Comments DIABETES ANNUAL FOOT EXAM 01/09/1972 DIABETES ANNUAL RETINAL EXAM 01/09/1972 DIABETES HBA1C Q 6 MONTHS 01/09/1972 DTAP/TDAP/TD VACCINES (1 - Tdap) 1973 PNEUMOCOCCAL VACCINE 65+ YEA RS (1 of 2 - PCV) 1973 FIT-DNA Q 3 years 1999 FIT/FOBT Q 1 year 1999 Flex Sig/CT Colonography Q 5 years 1999 ZOSTER VACCINE (1 of 2) 01/09/2004 RSV VACCINE (60+ or ) (1 - Risk 60-74 years 1-dose series) 2014 DIABETES MICROALBUMIN ANNUAL SCREEN 08/29/202008/29, 08/07/2018 LDL CHOLESTEROL ANNUAL 08/29/2020 08/30/2019, 2018 INFLUENZA VACCINE (#1) 2023 04/29/2020 COLORECTAL SCREENING 09/13/2030 09/13/2020 Colorectal Cancer Screening 09/13/2030 Procedures Procedure Name Priority Date/Time Associated Diagnosis Comments MICROALBUMIN/CREAT ININE RATIO, RANDOM UR Routine 08/30/2019 9:10 AM CDT Type I diabetes mellitus with hyperosmolar coma LIPID PANEL Routine 08/30/2019 9:09 AM CDT Type I diabetes mellitus with hyperosmolar coma from Last 3 Months or Most Recently Relevant to Health Maintenance Results * (ABNORMAL) MICROALBUMIN/CREATININE RATIO, RANDOM UR (08/30/2019 9:10 AM CDT) [facility] MICROALBUMIN, URINE 4.9 mg/dL 08/30/2019 11:50 AM [facility] CREATININE, URINE 221.0 40.0 - 278.0 mg/dL 08/30/2019 11:50 AM T [facility] Comment:Reference Range vari es with fluid intake and diet. MICROALBUMIN/C REAT RATIO, UR 22.2(H) <17.0 mg/g 08/30/2019 11:50 AM [facility] Urine URINE SPECIMEN OBTAINED BY CLEAN CATCH PROCEDURE / Unknown Collection / Unknown 08/30/2019 9:10 AM CDT 08/30/2019 9:10 AM CDT Narrative [facility] - 08/30/2019 11:50 AM CDT Condition ? Microalbumin/Creat ratio Normal Males ? <17 Normal Females ? <25 Microalbuminuria Males ?17-299 Microalbuminuria Females ?25-299 Overt proteinuria ? >=300 K Eligio Ferro MD URINE ORDERABLES Final Result [facility] CLIA# [id number] [place] [address] * LIPID PANEL (08/30/2019 9:09 AM CDT) CHOLESTEROL 153 <200 mg/dL 08/30/2019 11:39 AM CDT [facility] TRIGLYCERIDE 139 <150 mg/dL 08/30/2019 11:39 AM CDT [facility] HDL 45 40 - 59 mg/dL 08/30/2019 11:39 AM CDT [facility] LDL CALCULATED 80 <100 mg/dL 08/30/2019 11:39 AM CDT [facility] NON-HDL CHOLESTEROL 108 <130 mg/dL 08/30/2019 11:39 AM T [facility] Blood Venipuncture / Unknown 08/30/2019 9:09 AM CDT 08/30/2019 9:10 AM CDT [facility] - 08/30/2019 11:39 AM CDT TOTAL CHOLESTEROL ??mg/dL ??Desirable <200 ??Borderline high 200-239 ??High >=240 TRIGLYCERIDES ??mg/dL ??Normal <150 ??Borderline high 150-199 ??High 200-499 ??Very high >=500 HDL CHOLESTEROL ??mg/dL ??Low <40 ??Normal 40-59 ??Desirable >=60 NON HDL CHOLESTEROL mg/dL ??Optimal <130 ??Near Optimal 130-159 ??Borderline High 160-189 ??Very High >=190 CALCULATED LDL mg/dL ??LDL <70, OPTIMAL if have Atherosclerotic cardiovascular disease (ASCVD) ??or intermediate or higher (>7.5%) 10 year risk of ASCVD including most adults ??with diabetes. ??LDL <100, Optimal in adult patients with low (<7.5%) 10 year ASCVD risk ??LDL 100-160, Suboptimal ??LDL >160, High ??LDL >190, Very high ATPIII Guidelines Reference Ranges for Lipid Panels (NCEP/AMA) . K Eligio Ferro MD CHEMISTRY ORDERABLES Final Re sult [facility] CLIA# [id number] [address] [place] [address] from Last 3 Months or Most Recently Relevant to Health Maintenance Insurance MEDICARE PART A AND B [facility] Advance Directives For more information, please contact: [phone] * Full Code (Latest Code Status on File) Date Activated Date Inactivated Comments 06/22/2015 9:16 AM 06/22/2015 3:37 PM * Full Code Date Activated Date Inactivated Comments 06/22/2015 5:53 AM 06/22/2015 9:16 AM Care Teams Cell Operator Relationship Specialty Start Date End Date Sebastian Noguera Jr., MD PCP - General Family Practice 06/02/15
--- OUTSIDE RECORDS SUMMARY | 2024-04-06 23:59 | XMS_ITS | Encounter Summary ---
Author Organization [facility] Address [address] [place] [address] Care Team Providers Care Chemical Dependency Attendant Name Role Phone Chuckie Chavira MD, Sebastian Archer Primary Care Provider [phone] Reason for Visit * Reason Comments Establish Care AT pt - VRS - KORTNEY - meets procedural req - has thigh high compression Encounter Details Date Type Department Care Team (Late st Contact Info) Description 11/29/2020 2:15 PM CDT Office Visit [facility] Heart and Vascular - [address] [place] [address] Janeen Ramirez, TRAILER TANK TRUCK DRIVER [address] [place] [address] Chronic venous hypertension, unspecified laterality (Primary Dx); Chronic foot ulcer, unspecified laterality, unspecified ulcer stage; Chronic venous htn w inflammation of bilateral low extrm Social History Tobacco Use Types Packs/Day Years [...] have Coronavirus / COVID-19? No / Unsure 11/29/2020 1:44 PM CDT documented as of this encounter Last Filed Vital Signs Vital Sign Reading Time Taken Comments Blood Pressure 122/60 11/29/2020 1:51 PM CDT Pulse 84 11/29/2020 1:51 PM CDT Temperature - - Respiratory Rate - - Oxygen Saturation - - Inhaled Oxygen Concentration - - Weight 120.7 kg (266 lb 3.2 oz) 11/29/2020 1:51 PM CDT Height 185.4 cm (6' 1 ) 11/29/2020 1:51 PM CDT Body Mass Index 35.12 11/29/2020 1:51 PM CDT documented in this encounter Progress Notes * Tu Peres MD - 11/29/2020 5:03 PM CDT Patient seen and examined, agree with above. Briefly 65-year-old male who presented with concerns about left ower extremity. Mid Cardiac exam normal S1-S2, regular no murmur Pulmonary; symmetric breath sounds bilaterally Extremities warm well perfused. Hemosiderin staining. 1+ edema. Left greater than right. Recommend complete conservative measures. Then consider left GSV ablation. If symptoms do not improve, would consider evaluation for ebonie Cummings * Janeen Ramirez FNP - 11/29/2020 2:15 PM CDT Images from the original note were not included. [facility] Heart and Vascular Venous Consultation Primary Care Physician: Sebastian Noguera Jr., MD Gerard M Liliana is a 65 y.o. male presenting to the office today for venous consultation. He was referred by Dr. Olayinka Pollack for further evaluation of chronic venous hypertension A venous reflux study was performed and demonstrated reflux in the BPOPV, BSFJ, BGSV, BSPJ, BSSV. KORTNEY results normal (10/04/20). Patient reports swelling to BLE, left worse than right. Difficulty walking mostly due to his diabetic neuropathy. He reports it is hard to differentiate what symptoms are due to his neuropathy versusvenous insufficiency. He is currently seen by wound center for ulcerations of medial aspect of leftheel associated with cellulitis. He is followed by Dr. Hdez for longstanding diabetes. Three month compression stocking trial ends on January 29, 2021. Patient elevates legs regularly for more than 3 months with moderate improvement in symptoms. Patient exercises regularly and tries to maintain a healthy weight. Patient takes OTC Tylenol as needed when leg(s) ache. Functional loss includes difficulty standing up partially due to his neuropathy. Risk factors for chronic venous hypertension include: denies family history of venous hypertension , job requiring prolonged periods of sitting, and BMI No Known Allergies Current Outpatient Medications on File Prior to Visit Medication Sig Dispense Refill ??? doxycycline hyclate (VIBRAMYCIN) 100 mg capsule Take 100 mg by mouth 2 times daily. ??? insulin lispro (HumaLOG KwikPen Insulin) 100 unit/mL pen syringe INJECT UP TO 120 UNITS PER DAYIN DIVIDED DOSES DIRECTED ON SLIDING SCALE ??? OTHER Compression 20-30 Thigh High [id number] - Right Leg $45.00 [id number]- Left Leg $55.00 2 Each 2 ??? levothyroxine 100 mcg tablet Take 100 mcg by mouth daily . ??? lisinopril (PRINIVIL) 20 mg tablet Take 20 mg by mouth daily . ??? ONETOUCH ULTRA TEST Strip ??? NOVOLOG FLEXPEN 100 unit/mL Insulin Pen Inject by subcutaneous injection 8 units AM, 7 units atlunch, 8 units with supper, plus sliding scale. No current facility-administered medications on file prior to visit. Past Medical History: Diagnosis Date ??? Bradycardia ??? Diabetes ??? HTN (hypertension) ??? Numbness and tingling of right leg ??? Obstructive sleep apnea (adult) (pediatric) according to ??? Thyroid disease hypothyroidism ??? Wears glasses Past Surgical History: Procedure Laterality Date ??? HX TONSILLECTOMY ??? ND ARTHRS KNE SURG W/MENISCECTOMY MED/LAT W/SHVG Right 06/22/2015 KNEE ARTHROSCOPY RIGHT WITH PARTIAL MEDIAL MENISCECTOMY, SUBTOTAL TRI COMPARTMENTAL CHONDRAL SHAVING performed by Addison Sanchez Jr., DO at [facility] MAIN OR Family History Problem Relation Name Age of Onset ??? Cancer Father pancreat ??? Parkinson's Disease Father ??? Cancer Mother Pancreat Social History Socioeconomic History ??? Marital status: [...] Gatherings with Friends and Family: ??? Attends Faith Services: ??? Active Member of Clubs or Organizations: ??? Attends Club or Organization Meetings: ??? Marital Status: Intimate Partner Violence: ??? Fear of Current or Ex-Partner: ??? Emotionally Abused: ??? Physically Abused: ??? Sexually Abused: Review of Systems: General: No fever, chills, sweats, anorexia, or weight loss HEENT: No headaches, loss of consciousness or vision changes Respiratory:No SOB, wheezing, or orthopnea Cardiac: negative GI: No N/V, diarrhea, constipation, abdominal pain, melena or hematochezia : No dysuria or hematuria Musculoskeletal: No back pain, neck pain, joint pain Vascular: No claudication Neurological: No CVA or TIA symptoms Endocrine: positive for diabetes Lower extremities: No pain, redness or swelling on the joints All other ROS reviewed and are negative Physical Exam: There were no vitals taken for this visit. General: Well developed, in no acute distress, appears stated age Skin: No rashes or eruptions, skin color, texture, turgor normal Head/throat: Normocephalic,no JVD, no carotid bruits, no adenopathy or masses noted. Eyes/Ears: Pupils equal and round, external ear canals WNL. Lungs: Respirations unlabored, clear to auscultation Heart: RRR, normal S1, S2, no S3 or S4, no murmurs, gallops or rubs Chest wall: non-tender to palpation Abd: Soft, non-tender, non-distended. Normoactive bowel sounds. Extremities: No cyanosis, clubbing, mild -mod BLE edema. Pulses: 2+ and symmetric all extremities Neurologic: Awake, alert and oriented. Non focal. Psych: Mood appropriate. Cooperative. Right CEAP: C: clinical findings: C3 = edema, symptomatic, 1 = he is symptomatic but can function without a support device Left CEAP: C: clinical findings: C3 = edema, symptomatic, 1 = he is symptomatic but can function without a support device ATTRIBUTE ABSENT = 0 MILD = 1 MODERATE = 2 SEVERE = 3 PAIN [] None [] Occasional, not restricting activity or requiring pain medication [x] Daily moderate activity limitation; occasional pain medication [] Daily, severe limiting activities VARICOSE VEINS [x] None [] Few scattered [] Multiple; great saphenous veins, confirmed to calf and thigh [] Extensive; thigh and calf or great and small saphenous distribution VENOUS EDEMA [] None [] Evening ankle swelling only [x] Afternoon swelling, above ankle [] Morningswelling above ankle and requiring activity change, elevation SKIN PIGMENTATION [x] None [] Diffuse, but limited in area and old (brown) [] Diffuse over most of gaiter distribution (lower third) or recent pigmentation (purple) [] Wider distribution (above lowerthird) plus recent pigmentation INFLAMMATION [] None [x] Mild cellulitis, limited to marginal area around ulcer [] Moderate cellulitis, involves most of (lower third) [] Severe cellulitis (lower third and above) or significant INDURATION [x] None [] Focal, circummalleolar [] Medial or lateral, less than lower third of leg []Entire lower third of leg or more NUMBER OF ACTIVE ULCERS [] 0 [x] 1 [] 2 [] >2 ACTIVE ULCER DURATION [] None [] <3 months [x] > 3 months < 1 year [] Not healed > 1 year ACTIVE ULCER DIAMETER [] None [] <2 [x] 2-6 [] >6 COMPRESSION THERAPY [] Not used or patient not compliant [] Intermittent use of stockings [] Wears elastic stocking most days [x] Full compliance stockings + elevation VCSS Right 7 Left 13 Symptoms of Lymphedema include: negative ICD-10-CM ICD-9-CM 1. Chronic venous hypertension, unspecified laterality I87.309 459.30 2. Chronic foot ulcer, unspecified laterality, unspecified ulcer stage L97.509 707.15 ASSESSMENT/PLAN: 1. Chronic venous hypertension Symptoms consistent with chronic venous hypertension as documented by recent venous reflux study. VR as noted above. Vein disease and venous procedure discussed with patient. Patient expressed concerns regarding Valium versus procedural anesthesia- discussed in detail. He is Patient has been in thigh high compression for one month and will complete 90 days of conservative therapy on 2020. Please call patient in 2 months to follow up and evaluate venous procedures. If patient agrees, okto proceed with LGSV RF ablation. Patient encouraged to continue with conservative measures in the meantime. Possible evaluate for Ebonie Cummings. 2. Chronic foot ulcer -Left heel/ followed by Wound Center- continue Patient instructed to: elevation of the feet above the level of the heart whenever possible, use ofcompression stockings, decreasing sodium in the diet, increased physical activity and weight loss MARIELY Weiss [facility] Heart and Vascular documented in this encounter Miscellaneous Notes * Patient Instructions - Janeen Ramirez FNP - 11/29/2020 9:00 AM CDT Images from the original note were not included. Learning About Venous Insufficiency What is it? Venous insufficiency is a problem with the flow of blood from the veins of the legs back to the heart. It's also called chronic venous insufficiency or chronic venous stasis. Your veins bring blood back to the heart after it flows through your body. Veins have valves that keep the blood moving in one direction--toward the heart. But with venous insufficiency, the veins ofthe legs might not work as they should. This can allow blood to leak backward. Fluid can pool in the legs. This can lead to problems that include varicose veins. What causes it? Venous insufficiency is sometimes caused by deep vein thrombosis and high blood pressure inside legveins. You are more likely to have venous insufficiency if you: ?? Are older. ?? Are female. ?? Are overweight. ?? Don't get enough physical activity. ?? Smoke. ?? Have a family history of varicose veins. What are the symptoms? Symptoms of venous insufficiency affect the legs. They may include: ?? Swelling, often in the ankles. ?? A rash. ?? Varicose veins. ?? Itching. ?? Cramping. ?? Skin sores (ulcers). ?? Aching or a feeling of heaviness. ?? Changes in skin color. How is it diagnosed? Your doctor can diagnose venous insufficiency by examining your legs and by using a type of ultrasound test (duplex Doppler) to find out how well blood is flowing in your legs. How is it treated? To reduce swelling and relieve pain caused by venous insufficiency, you can wear compression stockings. They are tighter at the ankles than at the top of the legs. They also can help venous skin ulcers heal. But there are different types of stockings, and they need to fit right. So your doctor willrecommend what you need. You also can try to: ?? Get more exercise, especially walking. It can increase blood flow. ?? Avoid standing still or sitting for a long time, which can make the fluid pool in your legs. ?? Try not to sit with your legs crossed at the knee. ?? Keep your legs raised above your heart when you're lying down. This reduces swelling. If these treatments don't work, you may need medicine or a procedure to help relieve symptoms. Procedures might be done to close the vein, to remove the vein, or to improve blood flow. Follow-up care is a galeano part of your treatment and safety. Be sure to make and go to all appointments, and call your doctor if you are having problems. It's also a good idea to know your test resultsand keep a list of the medicines you take. Current as of: May 21, 2019?Content Version: 12.8 ?? [employer]. Care instructions adapted under license by your healthcare professional. If you have questions about a medical condition or this instruction, always ask your healthcare professional. These instructions may not represent the values of this healthcare organization. [employer] disclaims any warranty or liability for your use of this information. documented in this encounter Plan of Treatment Not on file documented as of this encounter Visit Diagnoses Diagnosis Chronic venous hypertension, unspecified laterality- Primary Chronic foot ulcer, unspecified laterality, unspecified ulcer stage Chronic venous htn w inflammation of bilateral low extrm documented in this encounter Care Teams Chemical Dependency Attendant Relationship Specialty Start Date End Date Sebastian Noguera Jr., MD PCP - General Family Practice 06/02/15 documented as of this encounter
--- OUTSIDE RECORDS SUMMARY | 2024-04-06 23:59 | XMS_ITS | Encounter Summary ---
Author Organization [facility] Address [address] [facility] Attn: Epic Prelude ADT [place] [address] Care Team Providers Care Director Data Name Role Phone Chuckie Chavira MD, Sebastian Archer Primary Care Provider [phone] Encounter Details Date Type Department Care Team (Latest Contact Info) Description 10/04/2020 Travel Social History Tobacco Use Types Packs/Day Years [...] have Coronavirus / COVID-19? No / Unsure 10/04/2020 2:26 PM CDT documented as of this encounter Plan of Treatment Not on file documented as of this encounter Visit Diagnoses Not on filedocumented in this encounter Care Teams Director Data Relationship Specialty Start Date End Date Sebastian Noguera Jr., MD PCP - General Family Practice 06/02/15 documented as of this encounter
--- OUTSIDE RECORDS SUMMARY | 2024-04-06 23:59 | XMS_ITS | Encounter Summary ---
Author Organization [facility] Address [address] [place] [address] Care Team Providers Care Embedded Case Manager Name Role Phone Chuckie Chavira MD, Sebastian Archer Primary Care Provider [phone] Reason for Visit * Reason Onset Date Comments Vein Clinic Appt 09/03/2020 Encounter Details Date Type Department Care Team (Late st Contact Info) Description 09/03/2020 Telephone [facility] Vein Center [address] [place] [address] [place] [address] [place] [address] Vein Clinic Appt Social History Tobacco Use Types Packs/Day Years [...] PM CDT documented as of this encounter Miscellaneous Notes * Telephone Encounter - Funmilayo Hung PCT - 10/07/2020 3:24 PM CDT Patient is scheduled for a vein consult on 11/29/2020 with Janeen Ramirez NP - paired with Dr. Yoly Lozano vein clinic * Telephone Encounter - Funmilayo Hung PCT - 09/03/2020 3:[address] Pollack, patient is to follow up in the vein clinic with Dr. Peres after review of his 10/04 VR Study. documented in this encounter Plan of Treatment Not on file documented as of this encounter Visit Diagnoses Not on filedocumented in this encounter Care Teams Embedded Case Manager Relationship Specialty Start Date End Date Sebastian Noguera Jr., MD PCP - General Family Practice 06/02/15 documented as of this encounter
--- OUTSIDE RECORDS SUMMARY | 2024-04-06 23:59 | XMS_ITS | Encounter Summary ---
Author Organization [facility] Address [address] [place] [address] Care Team Providers Care Early Childhood Assistant Name Role Phone Chuckie Chavira MD, Sebastian Archer Primary Care Provider [phone] Encounter Details Date Type Department Care Team (Late st Contact Info) Description 08/09/2020 Abstract [facility] Heart and Vascular - [address] [address] [facility] [address] [place] [address] Provider, Abstract NO ADDRESS ON FILE Social History Tobacco Use Types Packs/Day Years Used Date Smoking Tobacco: Never Alcohol Use Standard Drinks/Week Comments Yes 0 (1 standard drink = 0.6 oz pur e alcohol) 6/week Sex and Gender Information Value Date Recorded Sex Assigned at Not on file Legal Sex Male 11:45 AM CDT Gender Identity Not on file Sexual Orientation Not on file documented as of this encounter Plan of Treatment Not on file documented as of this encounter Visit Diagnoses Not on filedocumented in this encounter Care Teams Early Childhood Assistant Relationship Specialty Start Date End Date Sebastian Noguera Jr., MD PCP - General Family Practice 06/02/15 documented as of this encounter
--- OUTSIDE RECORDS SUMMARY | 2024-04-06 23:59 | XMS_ITS | Encounter Summary ---
Author Organization [facility] Address [address] [place] [address] Care Team Providers Care Flap Curer Name Role Phone Chuckie Chavira MD, Sebastian Archer Primary Care Provider +1 [phone] Reason for Visit * Reason Onset Date Comments Venous Plan 11/29/2020 Encounter Details Date Type Department Care Team (Late st Contact Info) Description 11/29/2020 Telephone [facility] Heart and Vascular - [address] [place] [address] Janeen Ramirez, MARIELY [address] [place] [address] Venous Plan Social History Tobacco Use Types Packs/Day Years [...] Telephone Encounter - Funmilayo Hung PCT - 02/24/2021 11:36 AM CST Unable to reach patient by phone and have not received a phone call back to schedule his 3 month vein follow up to document completion of conservative measures. Letter mailed to day to have patient call to schedule his follow up appt. NICS ENGINEER * Telephone Encounter - Funmilayo Hung PCT - 01/27/2021 11:27 AM CST 3rd call made to schedule his 90 day vein f/u OV per Medicare requirements. No answer. I left him avoice mail to call back if he is interested in proceeding. NICS ENGINEER * Telephone Encounter - Funmilayo Hung PCT - 01/10/2021 3:19 PM CDT 2nd call to schedule 3 mos vein f/u for on/ after 01/29. No answer. I left him a voice mail to callback to schedule * Telephone Encounter - Funmilayo Hung PCT - 12/29/2020 11:52 AM CDT I called to schedule patient for his vein follow up visit for on/ after 01/29/21. No answer. I lefthim a voice mail to call back to schedule. Can be with Michelle at [facility] [address] unpaired * Telephone Encounter - Funmilayo Hung PCT - 11/29/2020 3:12 PM CDT Per Janeen/ Dr. Peres, proceed with a L-GSV. Patient has been in compression for 1 month. He will need to complete 2 more months of conservative measures. Patient will require a 2 month follow up on / after 01/29/2021. I will follow up with patient closer to his 2 months to schedule his follow up appt. documented in this encounter Plan of Treatment Not on file documented as of this encounter Visit Diagnoses Not on filedocumented in this encounter Care Teams Flap Curer Relationship Specialty Start Date End Date Sebastian Noguera Jr., MD PCP - General Family Practice 06/02/15 documented as of this encounter
--- OUTSIDE RECORDS SUMMARY | 2024-04-06 23:59 | XMS_ITS | Encounter Summary ---
Author Organization [facility] Address [address] [place] [address] Care Team Providers Care Credit Assistant Name Role Phone Chuckie Chavira MD, Sebastian Archer Primary Care Provider [phone] [phone] Reason for Referral * Radiology Services (Routine) - Closed Specialty Diagnoses / Procedures Referred By Contac t Referred To Contact Diagnoses Venous insufficiency Procedures US VENOUS [place] [address] [address] Phone: tel: fax: Referral ID Status Reason Start Date Expiration Date Visits Re quested Visits Authorized [id number] Closed 09/02/2020 10/03/2021 1 1 Reason for Visit * Radiology Services (Routine) - Closed Specialty Diagnoses / Procedures Referred By Bernardino lucero Referred To Contact Diagnoses Venous insufficiency Procedures US VENOUS REFLUX BILATERAL Olayinka Pollack [place] [id number] [place] [address] Phone: tel: fax: Referral ID Status Reason Start Date Expiration Date Visits Re quested Visits Authorized [id number] Closed 09/02/2020 10/03/2021 1 1 Encounter Details Date Type Department Care Team (Latest Contact Info) Description 10/04/2020 2:35 PM CDT - 10/04/2020 11:59 PM CDT Hospital Encounter [facility] Heart and Vascular Testing [facility] [address] [facility] [address] [place] [address] [place] [address] [facility] [address] [place] [address] Discharge Disposition: Home or Self Care Social [...] PM CDT documented as of this encounter Medications at Time of Discharge insulin lispro (HumaLOG KwikPen Insulin) 100 unit/mL pen syringe INJECT UP TO 120 UNITS PER DAY IN DIVIDED DOSES DIRECTED ON SLIDING SCALE 02/19/2020 OTHER Compression 20-30 Thigh High [id number] - Right Leg $45.00 [id number]- Left Leg $55.00 2 Each 2 09/02/2020 4:31 PM CDT 09/02/2020 levothyroxine 100 mcg tablet Take 100 mcg by mouth daily . 06/04/2015 lisinopril (PRINIVIL) 20 mg tablet Take 20 mg by mouth daily . 06/04/2015 ONETOUCH ULTRA TEST Strip 06/05/2015 NOVOLOG FLEXPEN 100 unit/mL Insulin Pen Inject by subcutaneous injection 8 units AM, 7 units at lunch, 8 units with supper, plus sliding scale. 04/02/2015 documented as of this encounter Plan of Treatment Not on file documented as of this encounter Procedures Procedure Name Priority Date/Time Associated Diagnosis Comments US VENOUS REFLUX BILATERAL Routine 10/04/2020 4:43 PM CDT Venous insufficiency documented in this encounter Results * US VENOUS REFLUX BILATERAL (10/04/2020 4:43 PM CDT) Anatomical Region Laterality Modality Lower Extremity Ultrasound 10/04/2020 3:40 PM CDT Narrative 10/04/2020 10:16 PM CDT [facility] Venous Exam Venous Reflux Evaluation -- Patient: ? Luis Daniel FordN: ? [id number] Study ID: ?[id number] Gender: ?M : ? 1955 Age: ? 65 Race: ?CAU Height ? 185.4cm Study Date: ?10/04/2020 Weight: ?127kg Access. #: ? [id number] Account #: ? [id number] -- -- *Referring Physician:* Olayinka Pollack M.D. *Ordering Physician:* ??Olayinka Pollack M.D. Call Center Specialist: ? AM -- Study data: ?? Study [...] Prepared and Electronically Authenticated Ranjeet Quintana M.D. [id number]:00 Procedure Note Ranjeet Quintana MD - 10/04/2020 [facility] Venous Exam Venous Reflux Evaluation -- Patient: Luis Daniel Ford Study ID: [id number] Gender: Bryson : 1955 Age: 65 Race: CAU Height 185.4cm Study Date: 10/04/2020 Weight: 127kg Access. #: [id number] -- -- *Referring Physician:* Olayinka Pollack M.D. *Ordering Physician:* Olayinka Pollack M.D. Call Center Specialist: GURDEEP -- Study data: Study status: Routine. [...] Prepared and Electronically Authenticated Ranjeet Quintana M.D. [id number]:00 Olayinka Pollack MD ORDERABLES Final Result documented in this encounter Visit Diagnoses Diagnosis Venous insufficiency Unspecified venous (peripheral) insufficiency documented in this encounter Care Teams Credit Assistant Relationship Specialty Start Date End Date Sebastian Noguera Jr., MD PCP - General Family Practice 06/02/15 documented as of this encounter
--- OUTSIDE RECORDS SUMMARY | 2024-04-06 23:59 | XMS_ITS | Encounter Summary ---
Author Organization [facility] Address [address] [place] [address] Care Team Providers Care Grape Grower Name Role Phone Chuckie Chavira MD, Sebastian Archer Primary Care Provider [phone] [phone] Reason for Visit * Reason Onset Date Comments Appt rescheduled 08/19/2020 Encounter Details Date Type Department Care Team (Late st Contact Info) Description 08/19/2020 Telephone [facility] Heart and Vascular - [address] [facility] [address] [address] [facility] 300 [place] [address] [place] [address] [facility] 300 [place] [address] Appt rescheduled Social History Tobacco Use Types Packs/Day Years Used Date Smoking Tobacco: Never Alcohol Use Standard Drinks/Week Comments Yes 0 (1 standard drink = 0.6 oz pur e alcohol) 6/week Sex and Gender Information Value Date Recorded Sex Assigned at Not on file Legal Sex Male 11:45 AM CDT Gender Identity Not on file Sexual Orientation Not on file documented as of this encounter Miscellaneous Notes * Telephone Encounter - Courtney Maloney - 08/19/2020 9:46 AM CDT Please note: pt is rescheduled for 09/02. Thank you! . * Telephone Encounter - Maddy Frederick RN - 08/19/2020 9:35 AM CDT [place] offer 09/02 1130am at [place] or Wednesday 09/06 1130am [place]. If not available either of those days, would keep scheduled for 09/09 * Telephone Encounter - Courtney Maloney - 08/19/2020 9:28 AM CDT Pt called and rescheduled his new pt appt w/ AT due to his 's conflicting medical appt due to acar accident. Pt is rescheduled, but it is a few weeks out. Condition may need to be seen sooner. Added to wait list. Please review upcoming appt. Thank you. documented in this encounter Plan of Treatment Not on file documented as of this encounter Visit Diagnoses Not on filedocumented in this encounter Care Teams Grape Grower Relationship Specialty Start Date End Date Sebastian Noguera Jr., MD PCP - General Family Practice 06/02/15 documented as of this encounter
--- OUTSIDE RECORDS SUMMARY | 2024-04-06 23:59 | XMS_ITS | Encounter Summary ---
Author Organization [facility] Address [address] [place] [address] Care Team Providers Care Nut Process Helper Name Role Phone Chuckie Chavira MD, Sebastian Archer Primary Care Provider [phone] [phone] Reason for Visit * Reason Onset Date Comments New Patient Consult 08/09/2020 Encounter Details Date Type Department Care Team (Late st Contact Info) Description 08/09/2020 Telephone [facility] Heart and Vascular - [address] [facility] [address] [address] [facility] 300 [place] [address] [place] [address] [facility] 300 [place] [address] New Patient Consult Social History Tobacco Use Types Packs/Day Years [...] encounter Miscellaneous Notes * Telephone Encounter - Maddy Frederick RN - 08/09/2020 3:18 PM CDT Called and spoke with pt re: consult. Per notes, Dr Hdez also sending referral to wound care center also. Scheduled pt to see DR Pollack Sunday 08/20 245pm at [facility]. Provided location, address to pt and he verbalized understanding * Telephone Encounter - Katiana Duffy - 08/09/2020 2:09 PM CDT Received order from Dr Hdez for pt to be seen by Dr Pollack. Order has been scanned into chart. DX Cellulitis left leg/edema left leg/nonhealing ulcer left foot. Please call pt at [phone] to schedule documented in this encounter Plan of Treatment Not on file documented as of this encounter Visit Diagnoses Not on filedocumented in this encounter Care Teams Nut Process Helper Relationship Specialty Start Date End Date Sebastian Noguera Jr., MD PCP - General Family Practice 06/02/15 documented as of this encounter
--- OUTSIDE RECORDS SUMMARY | 2024-04-06 23:59 | XMS_ITS | Encounter Summary ---
Author Organization [facility] Address [address] [place] [address] Care Team Providers Care Forwarder Operator Name Role Phone Chuckie Chavira MD, Sebastian Archer Primary Care Provider [phone] [phone] Reason for Visit * Reason Onset Date Comments KORTNEY Result 10/05/2020 Venous Reflux Result and needs appointment with Dr Peres in 10/05/2020 Encounter Details Date Type Department Care Team (Late st Contact Info) Description 10/05/2020 Telephone [facility] Heart and Vascular - [address] [facility] [address] [address] [facility] 300 [place] [address] [place] [address] [facility] 300 [place] [address] KORTNEY Result; Venous Reflux Result and needs appointment with Dr Peres in Social History Tobacco Use Types Packs/Day Years [...] Telephone Encounter - Funmilayo Hung PCT - 10/06/2020 3:51 PM CDT I spoke with patient. VR Study results discussed. He is scheduled for a vein consult with Janeen Ramirez NP - paired with Dr. Peres at [facility] on 11/29/2020. He has thigh high compressionand he will continue to wear them regularly. * Telephone Encounter - Maddy Pablo - 10/05/2020 12:02 PM CDT Called and spoke to pt - reiterated KORTNEY result I also let pt know that Funmilayo Peres Nurse in the Vein center will be calling and discussing theresults of the Venous Reflux test and scheduling an appointment with Dr Peres in the Vein Center onthe next available date - he verb under * Telephone Encounter - Maddy Pablo - 10/05/2020 11:59 AM CDT ----- Message from Olayinka Pollack MD sent at 10/05/2020 11:29 AM CDT ----- Significant venous reflux. Should have a visit scheduled with CA based on my OV KORTNEY normal documented in this encounter Plan of Treatment Not on file documented as of this encounter Visit Diagnoses Not on filedocumented in this encounter Care Teams Forwarder Operator Relationship Specialty Start Date End Date Sebastian Noguera Jr., MD PCP - General Family Practice 06/02/15 documented as of this encounter
--- OUTSIDE RECORDS SUMMARY | 2024-04-06 23:59 | XMS_ITS | Encounter Summary ---
Author Organization [facility] Address [address] [place] [address] Care Team Providers Care Manufacturing Operator Name Role Phone Chuckie Chavira MD, Sebastian Archer Primary Care Provider [phone] [phone] Reason for Visit * Reason Onset Date Comments Vein procedures 02/25/2021 Encounter Details Date Type Department Care Team (Late st Contact Info) Description 02/25/2021 Telephone [facility] [address] [place] [address] [place] [address] [place] [address] Vein procedures Social History Tobacco Use Types Packs/Day Years [...] Telephone Encounter - Funmilayo Hung PCT - 02/25/2021 3:08 PM CST Multiple attempts (3 calls) to schedule patient for his 90 day vein follow up OV to document completion of conservative measures per Medicare. To then proceed with L-GSV. Last call made today - voice mail full on his cell and home number has been disconnected. Letter mailed today for patient to call. His VRS is 6 mos old on 04/06/20 X SECURITY ADMINISTRATOR documented in this encounter Plan of Treatment Not on file documented as of this encounter Visit Diagnoses Not on filedocumented in this encounter Care Teams Manufacturing Operator Relationship Specialty Start Date End Date Sebastian Noguera Jr., MD PCP - General Family Practice 06/02/15 documented as of this encounter
--- OUTSIDE RECORDS SUMMARY | 2024-04-06 23:59 | XMS_ITS | Encounter Summary ---
Author Organization [facility] Address [address] [facility] Attn: Epic Prelude ADT [place] [address] Care Team Providers Care Software Integrator Name Role Phone Chuckie Chavira MD, Sebastian Archer Primary Care Provider +1 [phone] Encounter Details Date Type Department Care Team (Latest Contact Info) Description 11/29/2020 Travel Social History Tobacco Use Types Packs/Day [...] on filedocumented in this encounter Care Teams Software Integrator Relationship Specialty Start Date End Date Sebastian Noguera Jr., MD PCP - General Family Practice 06/02/15 documented as of this encounter
--- OUTSIDE RECORDS SUMMARY | 2024-04-06 23:59 | XMS_ITS | Encounter Summary ---
Author Organization [employer] Address 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 Procedures US ANKLE [place] [address] [address] Phone: tel: fax: Referral ID Status Reason Start Date Expiration Date Visits Re quested Visits Authorized [id number] Closed 09/02/2020 10/03/2021 1 1 Reason for Visit * Radiology Services (Routine) - Closed Specialty Diagnoses / Procedures Referred By Contac t Referred To Contact Diagnoses 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 Procedures US ANKLE [place]URE [place] [address] [address] Phone: tel: fax: Referral ID Status Reason Start Date Expiration Date Visits Re quested Visits Authorized [id number] Closed 09/02/2020 10/03/2021 1 1 Encounter Details Date Type Department Care Team (Latest Contact Info) Description 10/04/2020 2:15 PM CDT - 10/04/2020 11:59 PM CDT Hospital Encounter [facility] Heart and Vascular Testing [facility] [address] [facility] [address] [place] [address] [place] [address] [facility] 300 [place] [address] Discharge Disposition: Home or Self [...] SCALE 02/19/2020 OTHER Compression 20-30 Thigh High [id number] - Right Leg $45.00 [id number]- Left Leg $55.00 2 Each 2 09/02/2020 [...] Name Priority Date/Time Associated Diagnosis Comments US ANKLE PRESSURE INDEX Routine 10/04/2020 3:18 PM CDT 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 Luis Daniel Ford MRN: ? [id number] Study ID: ?[id number] Gender: ?M : ? 1955 Age: ? 65 Race: ?CAU Height ? 185.4cm Study Date: ?10/04/2020 Weight: ?113.6kg Access. #: ? [id number] Account #: ? [id number] -- -- *Referring Physician:* Olayinka Canela M.D., M.D.Ordering Physician:* ??Olayinka Pollack M.D. Window Air Conditioner Installer: ? ACD -- Indications: ?? PVD. Study [...] Prepared and Electronically Authenticated Ranjeet Quintana M.D. [id number]:42 Procedure Note Ranjeet Quintana MD - 10/04/2020 [facility] KORTNEY Arterial Physiologic Evaluation -- Patient: Luis Daniel Ford Study ID: 1 Gender: M : 1955 Age: 65 Race: FANNIE Height 185.4cm Study Date: 10/04/2020 Weight: 113.6kg Access. #: [id number] -- -- *Referring Physician:* Olayinka Canela M.D., M.D. *Ordering Physician:* Olayinka Pollack M.D. Window Air Conditioner Installer: ACD -- Indications: PVD. Study data: Study [...] Prepared and Electronically Authenticated Ranjeet Quintana M.D. 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
--- OUTSIDE RECORDS SUMMARY | 2024-04-06 23:59 | XMS_ITS | Encounter Summary ---
Author Organization [facility] Address [address] [facility] Attn: Epic Prelude ADT [place] [address] Care Team Providers Care Percolator Operator Name Role Phone Chuckie Chavira MD, Sebastian Archer Primary Care Provider [phone] [phone] Encounter Details Date Type Department Care Team (Latest Contact Info) Description 09/02/2020 Travel Social History Tobacco Use Types Packs/Day [...] AM CDT documented as of this encounter Plan of Treatment Not on file documented as of this encounter Visit Diagnoses Not on filedocumented in this encounter Care Teams Percolator Operator Relationship Specialty Start Date End Date Sebastian Noguera Jr., MD PCP - General Family Practice 06/02/15 documented as of this encounter
[2024-04-07] VITALS: BP 112/56; PULSE 100; PULSE 85; RESP 18; TEMP 36.3; O2SAT 94
--- OUTSIDE RECORDS SUMMARY | 2024-04-07 | XMS_ITS | Encounter Summary ---
Author Organization [facility] Address [address] [place] [address] Care Team Providers Care Fruit Grader Name Role Phone Chuckie Chavira MD, Sebastian Archer Primary Care Provider [phone] Reason for Visit * Auth/Cert (Routine) Specialty Diagnoses / Procedures Referred By Contac t Referred To Contact Diagnoses Other tear of medial meniscus, current injury, right knee, subsequent encounter Procedures HI ARTHRS KNE SURG W/MENISCECTOMY MED/LAT W/SHVG Arthroscopy of right knee with medial meniscectomy. Further surgery as needed. Referral ID Status Reason Start Date Expiration Date Visits Re quested Visits Authorized [id number] 06/10/2015 07/10/2016 1 1 Encounter Details Date Type Department Care Team (Late st Contact Info) Description 06/22/2015 8:40 AM CDT - 06/22/2015 9:55 AM CDT Surgery [facility] [address] [id number] Addison Sanchez Jr., DO NO ADDRESS ON FILE KNEE ARTHROSCOPY RIGHT WITH PARTIAL MEDIAL MENISCECTOMY, SUBTOTAL TRI COMPARTMENTAL CHONDRAL SHAVING Surgery Details Date/Time Status Location OR Service Patient Class Case Class Case Type Trauma Case? 06/22/2015 8:40 AM Posted [facility] Surgical OP/Extended Care Elective No Panel 1 Procedure LRB Anes Op Region Wound Class Comments KNEE ARTHROSCOPY RIGHT WITH PARTIAL MEDIAL MENISCECTOMY, SUBTOTAL TRI COMPARTMENTAL CHONDRAL SHAVING Right General Knee Clean-I Surgeon Surgeon Role Service Panel Addison Sanchez Jr., DO Primary Orthopedics 1 Case Notes [id number] documented in this encounter Social History Tobacco [...] Sign Reading Time Taken Comments Blood Pressure 178/90 06/22/2015 7:26 AM CDT Pulse 66 06/22/2015 7:26 AM CDT Temperature 36.2 ??C (97.2 ??F) 06/22/2015 7:26 AM CD T Respiratory Rate 18 06/22/2015 7:26 AM CDT Oxygen Saturation 98% 06/22/2015 7:26 AM CDT Inhaled Oxygen Concentration - - Weight 128.1 kg (282 lb 6 oz) 06/22/2015 7:26 AM CDT Height 195.6 cm (6' 5 ) 06/17/2015 2:03 PM CDT Body Mass Index 33.48 06/17/2015 2:03 PM CDT documented in this encounter Discharge Instructions * Discharge Instructions* Michelle Martin RN - 06/22/2015 12:36 PM CDT Postoperative Instructions after Knee Arthroscopy The following guidelines will help you recover quickly and safely during the postoperative period. Please do not hesitate to contact our office if you have further questions or need clarification of this information. Activity -Minimize activity for the first 24-72 hours -Keep extremity elevated when sitting or lying down, but keep knee straight -Use 1 or 2 crutches as needed to bear as much weight as possible on the operated leg Wound Care -You may remove the dressing 2-3 days after surgery and shower. -Pat the wound dry and reapply a dry dressing or juan miguel wrap -No baths or whirlpools until 10-14 days after the surgery Home Exercises -Work on straightening your knee. Never put anything under the knee to keep it bent. -Place a pillow under the heel for 10-15 minutes each waking hour -Straight leg raises (3 sets of 10) 8-10 times per day. Ice Pack -Apply ice to the affected area x 20 minutes/hour for 48 hours. -Never place the cold pad directly on the skin. Prescriptions -Take 85 mg of aspirin daily, if no contraindication, x2 weeks postop -See discharge instruction list Follow-Up -Call to schedule this post operative visit for 10-14 days post op. * Attachments The following attachments cannot be sent through Care Everywhere. * KNEE ARTHROSCOPY: POST-OP (SAMOAN) * ANESTHESIA: GENERAL INFO (SAMOAN) * ACETAMINOPHEN AND OXYCODONE (SAMOAN) documented in this encounter Medications at Time of Discharge levothyroxine 100 mcg tablet Take 100 mcg by mouth daily . 06/04/2015 lisinopril (PRINIVIL) 20 mg tablet Take 20 mg by mouth daily . 06/04/2015 ONETOUCH ULTRA TEST Strip 06/05/2015 NOVOLOG FLEXPEN 100 unit/mL Insulin Pen Inject by subcutaneous injection 8 units AM, 7 units at lunch, 8 units with supper, plus sliding scale. 04/02/2015 documented as of this encounter Progress Notes * Justo Leyva RN - 06/22/2015 7:20 AM CDT PATIENT RECEIVED IN ATC 5, AMBULATORY, ALERT AND ORIENTED X4. PATIENT ID VERIFIED / ID BRACELET ANDPATIENT VERBAL VERIFICATION. VS OBTAINED AND ARE STABLE. PATIENT DRESSING INTO GOWN. documented in this encounter OR Notes * Nabila-OP - Michelle Martin RN - 06/22/2015 1:36 PM CDT Patient discharged to home via wheelchair with family. Discharge information and education providedto patient. Questions answered, understanding of discharge instruction verbalized. Printed copy given. 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 PROCEDURE PERFORMED: Right knee: Arthroscopic partial medial menisectomy and subtotal lateral menisci, tricompartmental shaving PRIMARY SURGEON: Yan Sanchez Jr., DO Surgical Staff: Medical Charge Entry Specialist: Patria Carvajal RN; Katiana Lau RN Scrub: Ingrid Cuevas ST First Assistant: Emmy Watson RN; Donn Prajapati PA ANESTHESIA:General ESTIMATED BLOOD LOSS: Less than 20ml COMPLICATIONS: None BRIEF HISTORY/INDICATIONS FOR PROCEDURE: The patient has been having pain associated with the consented knee noted above. Because of the persistent nature of symptoms, the patient sought medical attention. Pre-operative workup and diagnostic images were consistent with the above diagnosis and the patient consented and was scheduled for an arthroscopic evaluation. We discussed the risks, benefits as well as potential complications of knee arthroscopy that include but are not limited to infection, nerve artery & potential wound complications. I also discussed the fact that preexisting arthritis can cause ongoing pain despite the fact that partial resection of cartilage or meniscus. Post operative swelling is common & will require several weeks to resolve. We also discussed the potential for DVT/ PE or even . DETAILS OF OPERATIVE CASE: After obtaining informed consent, the operative leg was initialed, H&P updated/ signed & pre op antibiotics administered the patient was brought to the operating room and underwent a general anesthetic. After an adequate level of anesthesia was obtained, the proximal thigh tourniquet was placed on the surgical side. We scrubbed the operative leg with a betadine scrub brush & then did the routine chloroprep. The leg was then prepped and draped in the usual sterile manner. After completion of prepping and draping, the anterior anatomy of the knee was marked out. I used the inferior medial & lateral portals. A inflow cannula was inserted into the superior lateral portal. The medial and lateral arthroscopy portals were made and the scope, obturator , and cannula were introduced through the inferolateral portal and directed up into the suprapatellar pouch. The obturator was exchanged for the camera using the inferolateal portal. The inferior medial portal was made under direct visualization using a 18 gauge needle & then a stab incision w/ 11 blade. Diagnostic arthroscopy was carried out. The medial and lateral gutters were free of loose bodies or other debris. The patellofemoral articulation Showed grade 2-3 chondromalacia patellofemoral joint with central tracking of the patella with the trochanter groove. The notch showed osteophytes along the medial aspect of the notch. The lateral compartment was then inspected. The lateral femoral condyle showed grade 3 chondromalacial changes of the femoral condyle. There is a 75% posterior horn attachment of the lateral meniscus. There grade 2-3 cartilage changes of the tibial plateau. A subtotal lateral meniscectomy was performed. Chondral shaving was performed The ACL and PCL were inspected and found to be normal. The medial compartment was inspected. The mediofemoral condyle and tibial plateau were relatively free of any evidence of arthritis. Some grade 2 to early grade 3 chondromalacia was noted in the plateau and the femoral condyle, but otherwise the joint surfaces were in good shape. There was noted go a articular tear of the medial meniscus about the posterior aspect. The periphery of the meniscus was intact. A partial medial meniscectomy performed. The instruments were all removed. The portal sites were closed with 4-0 prolene. The knee was injected with 80 mg of Depo-Medrol. Sterile bandages were applied. The patient was extubated and brought to the recovery room in good, stable condition. No complications were incurred during the procedure.The instrument & sponge count were correct. Gross pathology showed grade 3-4 chondromalacia of lateral femoral condyle with a posterior horn tear lateral meniscus. There was noted to be grade 2-3 chondromalacia medial joint compartment interarticular tear of the medial meniscus. Grade 2-3 chondromalacia of the patellofemoral joint. Addison Sanchez Jr., DO documented in this encounter Miscellaneous Notes * Care Plan - Michelle Martin RN - 06/22/2015 12:32 PM CDT Knowledge deficit related to procedure/environment Interventions: Assess learning needs and willingness to learn; give clear, concise explanations of the environment and sequence of events surrounding the periop experience; address patient/family questions and concerns; provide teaching as indicated, provide teaching related to postoperative pain assessment utilizing pain scales Expected Outcome: Patient verbalizes or demonstrates awareness/understanding of surgery and perioperative experience Outcome Met: YES Potential for pain related to surgical/procedural intervention Interventions: Assess level of pain/comfort utilizing verbal/nonverbal pain scales; assess culturalor alevism indicators attached to pain; administer pain medications as prescribed; utilize non-pharmacologic pain control and comfort measures Expected Outcome: Patient demonstrates and reports adequate pain control Outcome Met: YES * Care Plan - Carissa Henriquez RN - 06/22/2015 12:03 PM CDT Potential for pain related to surgical/procedural intervention Interventions: Assess level of pain/comfort utilizing verbal/nonverbal pain scales; assess culturalor alevism indicators attached to pain; administer pain medications as prescribed; utilize non-pharmacologic pain control and comfort measures Expected Outcome: Patient demonstrates and reports adequate pain control Outcome Met: pt denies pain * Care Plan - Justo Leyva RN - 06/22/2015 7:33 AM CDT Knowledge deficit related to procedure/environment Interventions: Assess learning needs and willingness to learn; give clear, concise explanations of the environment and sequence of events surrounding the periop experience; address patient/family questions and concerns; provide teaching as indicated, provide teaching related to postoperative pain assessment utilizing pain scales Expected Outcome: Patient verbalizes or demonstrates awareness/understanding of surgery and perioperative experience Outcome Met: YES documented in this encounter Plan of Treatment Not on file documented as of this encounter Procedures Procedure Name Priority Date/Time Associated Diagnosis Comments PT CRUTCH TRAINING Routine 06/22/2015 10 :56 AM CDT KNEE ARTHROSCOPY 06/22/2015 9:40 AM CDT Acute medial meniscus tear of right knee, subsequent encounter Case Notes [id number] POC GLUCOSE Routine 06/22/2015 7:49 AM CDT EDUCATION KNEE ARTHROSCOPY Routine 06/17/2015 1:59 PM CDT Acute medial meniscus tear of right knee, subsequent encounter documented in this encounter Results * (ABNORMAL) POC GLUCOSE (06/22/2015 7:49 AM CDT) GLUCOSE POC 172(H) 65 - 99 mg/dL 06/22/2015 8:00 AM CDT [facility] Whole blood specimen (specimen) 06/22/2015 7:49 AM CDT 06/22/2015 8:00 AM CDT Addison Sanchez Jr., DO POINT OF CARE TESTING Fin al Result Performing Organization Address City/[facility]/ZIP Co de Phone Number [facility] CLIA # [id number] [address] [address] * EDUCATION KNEE ARTHROSCOPY - JOSEPH (06/17/2015 1:59 PM CDT) Education Name KNEE ARTHROSCOPY JOSEPH EDUCATION INTERFACE Education URL [email or web address] JOSEPH EDUCATION INTERFACE EDUCATION ACCESS CODE [id number] JOSEPH EDUCATION INTERFACE EDUCATION ISSUE DATE Jun 17, 2015 JOSEPH EDUCATION INTERFACE EDUCATION START DATE JOSEPH EDUCATION INTERFACE EDUCATION COMPLETED DATE This program was not started and flagged as on: Jun 17, 2018 JOSEPH EDUCATION INTERFACE EDUCATION EXPIRATION DATE July 22, 2015 JOSEPH EDUCATION INTERFACE EDUCATION MESSAGE EVENT JOSEPH EDUCATION INTERFACE 06/17/2015 1:59 PM CDT Addison Sanchez Jr., DO EXTERNAL EDUCATION ORDERA BLES Final Result JOSEPH EDUCATION INTERFACE documented in this encounter Visit Diagnoses Diagnosis Acute medial meniscus tear of right knee, subsequent encounter- Primary Acute medial meniscus tear of right knee, initial encounter Acute medial meniscus tear of right knee, subsequent encounter documented in this encounter Administered Medications Inactive Administered Medications - up to 3 most recent administrations Medication Order MAR Action Action Date Dose Rate Site enoxaparin (LOVENOX) injection 40 mg 40 mg, subCUT, ONE TIME ONLY, 1 dose, On Sun06/22/15 at 1100, Routine, PACU Given 06/22/2015 11:31 AM CDT 40 mg Abdomen, Left Lower Quadrant famotidine (PEPCID) tablet 20 mg 20 mg, Oral, PRE-PROCEDURE ONCE, 1 dose, Starting on Sun06/22/15 at 0553, Until Sun06/22/15 at 0753, Routine, Pre-opIndications:Acut e medial meniscus tear of right knee, initial encounter Given 06/22/2015 7:53 AM CDT 20 mg lactated ringers solution IV, at 125 mL/hr, PRE-PROCEDURE CONTINUOUS, Starting on Sun06/22/15 at 0600, Until Sun06/22/15 at 1537, Routine, Pre-opIndications:Acut e medial meniscus tear of right knee, initial encounter New Bag 06/22/2015 11:13 AM CDT 125 mL/hr New Bag 06/22/2015 7:53 AM CDT 125 mL/hr sodium chloride 0.9 % irrigation irrigation INTRA-PROCEDURE PRN, Starting on Sun06/22/15 at 1036, Until Sun06/22/15 at 1057, Routine, Intra-op Given 06/22/2015 10:36 AM CDT 9,000 mL Oper ative Site documented in this encounter Active and Recently Administered Medications Times are shown in CDT. Scheduled Medication Order 06/20/2015 06/21/2015 06/22/2015 ceFAZolin (ANCEF) IVPB 2,000 mg (COMPLETED) 2,000 mg, IV, PRE-PROCEDURE ONCE, 1 dose, Starting on Sun06/22/15 at 0553, Until Sun06/22/15 at 0943, Routine, Pre-op, Antibiotic Indication: Surgical prophylaxis 0943 (Given - Provid er: Delonte Hsu CRNA) enoxaparin (LOVENOX) injection 40 mg (COMPLETED) 40 mg, subCUT, ONE TIME ONLY, 1 dose, On Sun06/22/15 at 1100, Routine, PACU 1131 (Given - Provid er: Carissa Henriquez RN) famotidine (PEPCID) tablet 20 mg (COMPLETED) 20 mg, Oral, PRE-PROCEDURE ONCE, 1 dose, Starting on e 06/22/15 at 0553, Until 06/22/15 at 0753, Routine, Pre-op 0753 (Given - Provid er: Ally Hdez RN) Continuous Medication Order 06/20/2015 06/21/2015 06/22/2015 lactated ringers solution (CANCELED) IV, at 125 mL/hr, PRE-PROCEDURE CONTINUOUS, Starting on Sun06/22/15 at 0600, Until 06/22/15 at 1537, Routine, Pre-op 0753 (New Bag - Prov ider: Ally Hdez RN)0944 (Fluid Volume - Provider: Delonte Hsu CRNA)1113 (New Bag - Provider: Carissa Henriquez RN)1243 (Stopped - Provider: Michelle Martin RN) PRN Medication Order 06/20/2015 06/21/2015 06/22/2015 sodium chloride 0.9 % irrigation irrigation (CANCELED) INTRA-PROCEDURE PRN, Starting on e 06/22/15 at 1036, Until 06/22/15 at 1057, Routine, Intra-op 1036 (Given - Provid er: Addison Sanchez Jr., DO) documented in this encounter Care Teams Fruit Grader Relationship Specialty Start Date End Date Sebastian Noguera Jr., MD PCP - General Family Practice 06/02/15 documented as of this encounter
--- OUTSIDE RECORDS SUMMARY | 2024-04-07 | XMS_ITS | Encounter Summary ---
Author Organization [facility] Address [address] [place] [address] Care Team Providers Care Auto Locator Name Role Phone Chuckie Chavira MD, Sebastian Archer Primary Care Provider [phone] Encounter Details Date Type Department Care Team (Latest Contact Info) Description 02/15/2019 8:10 AM PROMOTIONAL DEMONSTRATOR - 02/15/2019 11:59 PM [facility] Hospital Encounter [facility] [address] [id number] [address] [facility] [address] [place] [address] [place] [address] [facility] [address] [address] Discharge Disposition: Home or Self Care Social [...] on file documented as of this encounter Medications at [...] Procedure Name Priority Date/Time Associated Diagnosis Comments CBC WITH DIFFERENTIAL Routine 02/15/2019 8:24 AM PROMOTIONAL DEMONSTRATOR 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 TSH Routine 02/15/2019 8:24 AM PROMOTIONAL DEMONSTRATOR 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 T4 FREE Routine 02/15/2019 8:24 AM PROMOTIONAL DEMONSTRATOR 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 COMPREHENSIVE METABOLIC PANEL Routine 02/15/2019 8:24 AM PROMOTIONAL DEMONSTRATOR 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 [facility] CLIA# [id number] [address] [place] [address] * TSH (02/15/2019 8:24 AM PROMOTIONAL DEMONSTRATOR) TSH 3.28 0.27 - 4.20 uIU/mL 02/15/2019 5:15 PM PROMOTIONAL DEMONSTRATOR [facility] Blood Venipuncture / Unknown 02/15/2019 8:24 AM PROMOTIONAL DEMONSTRATOR 02/15/2019 8:24 AM PROMOTIONAL DEMONSTRATOR us Partha Ferro MD CHEMISTRY ORDERABLES Final Re sult [facility] CLIA# [id number] [address] [place] [address] * (ABNORMAL) COMPREHENSIVE METABOLIC PANEL (02/15/2019 8:24 AM PROMOTIONAL DEMONSTRATOR) SODIUM 137 136 - 145 mmol/L 02/15/2019 5:09 PM [employer] [facility] POTASSIUM 4.3 3.5 - 5.0 mmol/L 02/15/2019 5:09 PM [facility] CHLORIDE 98 98 - 107 mmol/L 02/15/2019 5:09 PM [facility] CO2 27 22 - 29 mmol/L 02/15/2019 5:09 PM [facility] CALCIUM 9.2 8.6 - 10.2 mg/dL 02/15/2019 5:09 PM [facility] BUN 8 8 - 23 mg/dL 02/15/2019 5:09 PM [facility] CREATININE 0.89 0.67 - 1.17 mg/dL 02/15/2019 5:09 PM [facility] GLUCOSE 155(H) 74 - 99 mg/dL 02/15/2019 5:09 PM [facility] TOTAL PROTEIN 7.1 6.7 - 8.6 g/dL 02/15/2019 5:09 PM [facility] ALBUMIN 4.1 3.5 - 5.2 g/dL 02/15/2019 5:09 PM [facility] BILIRUBIN TOTAL 0.5 0.2 - 1.1 mg/dL 02/15/2019 5:09 PM [facility] ALKALINE PHOSPHATASE 69 40 - 129 U/L 02/15/2019 5:09 PM [facility] AST 15 <41 U/L 02/15/2019 5:09 PM [facility] ALT 12 <42 U/L 02/15/2019 5:09 PM [employer] [facility] GFR >60 >=60 mL/min/1.7 3 sq meter 02/15/2019 5:09 PM [employer] [facility] Comment: eGFR has not been validated for use in the elderly (> 70 years of age), women, patients with serious co-morbid conditions, or persons with extremes of body size or muscle mass and should also be interpreted with caution in patients with acute kidney failure, dialysis dependent patients, patients reporting exceptional dietary intake (e.g. vegetarian diet, high protein diets, creatine supplementation), and patients with severe liver disease. Based on National Kidney Disease Education Program If patient is , please refer to the GFR result. GFR, >60 >=60 mL/min/1.7 3 sq meter 02/15/2019 5:09 PM [facility] [employer] [facility] ANION GAP 12 8 - 16 mmol/L 02/15/2019 5:09 PM [facility] [employer] [facility] Blood Venipuncture / Unknown 02/15/2019 8:24 AM PROMOTIONAL DEMONSTRATOR 02/15/2019 8:24 AM PROMOTIONAL DEMONSTRATOR [facility] [employer] [facility] - 02/15/2019 5:09 PM PROMOTIONAL DEMONSTRATOR Samples containing indocyanine green cause interferences on Total and/or Direct Bilirubin and must not be measured. us K Eligio Ferro MD CHEMISTRY ORDERABLES Final Re sult [facility] [employer] [facility]# [id number] [address] [facility] [place] [address] * (ABNORMAL) CBC WITH DIFFERENTIAL (02/15/2019 8:24 AM PROMOTIONAL DEMONSTRATOR) WBC 8.0 4.0 - 9.8 K/uL 02/15/2019 4:44 PM [facility] [employer] [facility] RBC 5.39 4.50 - 5.40 M/uL 02/15/2019 4:44 PM [facility] [employer] [facility] HEMOGLOBIN 15.5 13.6 - 16.5 g/dL 02/15/2019 4:44 PM [facility] [employer] [facility] HEMATOCRIT 46.7 40.0 - 48.0 % 02/15/2019 4:44 PM [facility] [employer] [facility] MCV 86.6 82.0 - 99.0 fL 02/15/2019 4:44 PM [facility] [employer] [facility] MCH 28.8 27.2 - 32.6 pg 02/15/2019 4:44 PM PROMOTIONAL DEMONSTRATOR [employer] [facility] MCHC 33.2 31.5 - 35.5 g/dL 02/15/2019 4:44 PM PROMOTIONAL DEMONSTRATOR [employer] [facility] RDW 12.9 11.5 - 14.5 % 02/15/2019 4:44 PM PROMOTIONAL DEMONSTRATOR [facility] [employer] [facility] RDW-STDEV 40.0 37.1 - 48.7 fL 02/15/2019 4:44 PM PROMOTIONAL DEMONSTRATOR [facility] [facility] [facility] PLATELETS 229 140 - 350 K/uL 02/15/2019 4:44 PM PROMOTIONAL DEMONSTRATOR [facility] [facility] [facility] MPV 9.6 9.3 - 12.4 fL 02/15/2019 4:44 PM PROMOTIONAL DEMONSTRATOR [facility] NEUTROPHILS 65 % 02/15/2019 4:44 PM PROMOTIONAL DEMONSTRATOR [facility] LYMPHOCYTES 21 % 02/15/2019 4:44 PM PROMOTIONAL DEMONSTRATOR [facility] [facility] MONOCYTES 7 % 02/15/2019 4:44 PM PROMOTIONAL DEMONSTRATOR [facility] [facility] [facility] EOSINOPHILS 4 % 02/15/2019 4:44 PM PROMOTIONAL DEMONSTRATOR [facility] BASOPHILS 1 % 02/15/2019 4:44 PM PROMOTIONAL DEMONSTRATOR [facility] [facility] [facility] IMMATURE GRANULOCYTES 1 % 02/15/2019 4:44 PM PROMOTIONAL DEMONSTRATOR [facility] [facility] Comment:IG (Immature Granulo cyte) count includes Metamyelocytes, Myelocytes, and Promyelocytes NEUTROPHIL ABSOLUTE 5.23 1.90 - 7.00 K/uL 02/15/2019 4:44 PM PROMOTIONAL DEMONSTRATOR [facility] LYMPHOCYTE ABSOLUTE 1.70 0.70 - 4.50 K/uL 02/15/2019 4:44 PM PROMOTIONAL DEMONSTRATOR [facility] [facility] MONOCYTE ABSOLUTE 0.58 0.10 - 1.30 K/uL 02/15/2019 4:44 PM PROMOTIONAL DEMONSTRATOR [facility] [facility] EOSINOPHIL ABSOLUTE 0.28 0.00 - 0.70 K/uL 02/15/2019 4:44 PM PROMOTIONAL DEMONSTRATOR [facility] [facility] BASOPHILS ABSOLUTE 0.11 0.00 - 0.20 K/uL 02/15/2019 4:44 PM PROMOTIONAL DEMONSTRATOR [facility] [employer] [facility] IMMATURE GRANULOCYTES ABSOLUTE 0.09(H) 0.00 - 0.03 K/uL 02/15/2019 4:44 PM PROMOTIONAL DEMONSTRATOR [facility] Blood Venipuncture / Unknown 02/15/2019 8:24 AM PROMOTIONAL DEMONSTRATOR 02/15/2019 8:24 AM PROMOTIONAL DEMONSTRATOR us K Eligio Ferro MD HEMATOLOGY ORDERABLES Final R esult [facility] CLIA# [id number] [address] 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
--- OUTSIDE RECORDS SUMMARY | 2024-04-07 | XMS_ITS | Encounter Summary ---
Author Organization [facility] Address [address] [place] [address] Care Team Providers Care Automobile Brake Bonder Name Role Phone Chuckie Chavira MD, Sebastian Archer Primary Care Provider [phone] Reason for Visit * Reason Comments Post-op Visit post op / suture rem oval/ arthroscopy of right knee with medical meniscectomy - sx date 06/22/15 Encounter Details Date Type Department Care Team (Late st Contact Info) Description 07/07/2015 2:15 PM CDT Office Visit [facility] - [address] [place] [address] Addison Sanchez Jr., DO NO ADDRESS ON FILE Acute medial meniscus tear of right knee, subsequent encounter (Primary Dx); Status post arthroscopic surgery of right knee Social History Tobacco Use Types Packs/Day Years [...] Sign Reading Time Taken Comments Blood Pressure 132/68 07/07/2015 2:11 PM CDT Pulse 71 07/07/2015 2:11 PM CDT Temperature - - Respiratory Rate - - Oxygen Saturation - - Inhaled Oxygen Concentration - - Weight 127 kg (280 lb) 07/07/2015 2:11 PM CDT Height 195.6 cm (6' 5 ) 07/07/2015 2:11 PM CDT Body Mass Index 33.2 07/07/2015 2:11 PM CDT documented in this encounter Progress Notes * Addison Sanchez Jr., DO - 07/07/2015 2:11 PM CDT [facility] PATIENT POST-OPERATIVE VISIT FOR KNEE ARTRHOSCOPY Date of Service: 07/07/2015 PATIENT: Luis Daniel Ford : 1955 HPI Luis Daniel Ford is a 60 y.o. male who returns to the orthopedic surgery clinic today for post operative evaluation of his right knee. Patient is status post right knee arthroscopy with partial medial meniscectomy, subtotal tri compartmental chondral shaving. Date of surgery: 06/22/15. He has minimal pain and is taking Tylenol as needed. He has numbness/tingling in the right foot. Patient also has right sided back pain radiating into the abdomen that can last a few hours onset April but this is improving since onset. He has this pain if he moves a certain way while laying in bed. He denies CP,SOB, and diaphoresis. He ambulates without assistive device. Past Medical History Diagnosis Date ??? Diabetes ??? Thyroid disease hypothyroidism ??? Wears glasses ??? HTN (hypertension) ??? Numbness and tingling of right leg ??? Obstructive sleep apnea (adult) (pediatric) according to Past Surgical History Procedure Laterality Date ??? Hx tonsillectomy ??? Pr arthrs kne surg w/meniscectomy med/lat w/shvg Right 06/22/2015 KNEE ARTHROSCOPY RIGHT WITH PARTIAL MEDIAL MENISCECTOMY, SUBTOTAL TRI COMPARTMENTAL CHONDRAL SHAVING performed by Addison Sanchez Jr., DO at [facility] History Social History ??? Marital Status: Spouse Name: N/A ??? Number of Children: N/A ??? Years of Education: N/A Occupational History ??? Not on file. Social History Main Topics ??? Smoking status: Never Smoker ??? Smokeless tobacco: Not on file ??? Alcohol Use: 0.0 oz/week 0 Standard drinks or equivalent per week Comment: 6/week ??? Drug Use: No ??? Sexual Activity: Not on file Other Topics Concern ??? Not on file Social History Narrative Family History Problem Relation Age of Onset ??? Cancer Father pancreat ??? Parkinson's Disease Father ??? Cancer Mother Pancreat No Known Allergies Current Outpatient Prescriptions Medication Sig Dispense Refill ??? oxyCODONE-acetaminophen (PERCOCET) 5-325 mg tablet Take 1 Tablet by mouth every 4 hours as needed for Pain, Moderate. Max Daily Amount: 6 Tablet 100 Tablet 0 ??? levothyroxine 100 mcg tablet Take 100 mcg by mouth daily . ??? lisinopril (PRINIVIL) 20 mg tablet Take 20 mg by mouth daily . ??? ONETOUCH ULTRA TEST Strip ??? insulin detemir (LEVEMIR) 100 unit/mL Insulin Pen Inject 12 Units by subcutaneous injection 2 times daily . ??? ergocalciferol (VITAMIN D2) 50,000 unit capsule Take 50,000 Units by mouth every 7 days . ??? aspirin (GURPREET) 325 mg tablet Take 325 mg by mouth daily. ??? NOVOLOG FLEXPEN 100 unit/mL Insulin Pen Inject by subcutaneous injection 8 units AM, 7 units atlunch, 8 units with supper, plus sliding scale. No current facility-administered medications for this visit. REVIEW OF SYSTEMS General: No fever. No chills. No sweats. No weight loss. No weight gain. Eyes: No vision changes. No eye injury. No eye irritation. Ears: No hearing loss. No earache. Nose: No nasal congestion. No sinus problems. No nosebleed. Mouth and Throat: No sores in mouth. No difficulty swallowing. No hoarseness. No sore throat. Cardiovascular: No chest pain. No shortness of breath. No swelling of hands or feet. No abnormal heart rhythm. Endocrine: No cold intolerance. No heat intolerance. No excessive thirst or urination Hematological: No abnormal bleeding. No abnormal bruising. No cancer. Neurological: No headaches or migraines. No seizures. No weakness. +numbness or tingling Allergy: No seasonal allergy Respiratory: No cough. No difficulty sleeping. No wheezing. No blood in sputum. Gastrointestinal: No nausea. No vomiting. No diarrhea. No abdominal pain. No bloody stools. No acidreflux. Musculoskeletal: No muscle cramps. No joint pain. +back pain. No neck pain. Skin: No rash. No itching. No suspicious lesions. Breasts: No lumps or masses. No nipple discharge. No tenderness Psychological: No depression. No anxiety. No bipolar. PHYSICAL EXAMINATION Chief Complaint Patient presents with ??? Post-op Visit post op / suture removal/ arthroscopy of right knee with medical meniscectomy - sx date 06/22/15 BP 132/68 mmHg Pulse 71 Ht 6' 5 (1.956 m) Wt 127.007 kg (280 lb) BMI 33.20 kg/m2 General appearance: Alert, cooperative, no distress, appears stated age, developmentally normal, nodeformities Head: Normocephalic, without obvious abnormality, atraumatic Eyes: conjunctivae/corneas clear. PERRLA, EOM's intact ENT: Normal external exam of ears, nares normal. Septum midline. Mucosa normal. No drainage or sinus tenderness. Lips, mucosa, and tongue normal. Teeth and gums normal. Neck: supple, symmetrical, trachea midline, no adenopathy, thyroid not enlarged, symmetric, no tenderness/mass/nodules, no carotid bruit Back: Symmetric, no curvature, range of motion normal Lungs: Clear to auscultation bilaterally, no dullness to percussion, no wheezes or rales. Normal respiratory effort. Chest wall: No tenderness, lumps or masses, Heart: regular rate and rhythm, no murmer, click, rub, or gallop Abdomen: soft, non-tender. Bowel sounds normal. No masses. No organomegaly. Pulses: 2+ and symmetric. No pedal edema Skin: skin color, texture, turgor normal. No rashes or lesions Lymph nodes: Cervical, supraclavicular, and axillary nodes normal Psychiatric: Oriented to self. No memory impairment Extremities: right knee exam Skin is clean, dry, and intact at the incision site. No evidence of infection. No evidence of DVT. Pulses 2/4. No dysesthesias to light touch. No lymphedema or lymphadenitis. Skin is intact. RADIOGRAPHIC FINDINGS none IMPRESSION Status post right knee arthroscopy with partial medial meniscectomy, subtotal tri compartmental chondral shaving. 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 Showering instructions given. Weight bearing as tolerated. Continue range of motion exercises. I instructed the patient how to perform home exercises up to 10 pounds of added weight Continue pain control. Continue aspirin. If numbness/tingling persists, discussed EMG NCS Follow up as needed This note has been prepared by Arturo Alberto [employer], for Addison Sanchez DO on 07/07/2015 at 2:12 PM. The scribe's documentation has been prepared under my direction and personally reviewed by me in its entirety. I confirm that the note above accurately reflects all work, treatment, procedures, and medical decision making performed by me, on 07/07/2015 at 2:29 PM -- Addison Sanchez DO documented in this encounter Plan of Treatment Not on file documented as of this encounter Visit Diagnoses Diagnosis Acute medial meniscus tear of right knee, subsequent encounter- Primary Status post arthroscopic surgery of right knee Other postprocedural status documented in this encounter Care Teams Automobile Brake Bonder Relationship Specialty Start Date End Date Sebastian Noguera Jr., MD PCP - General Family Practice 06/02/15 documented as of this encounter
--- OUTSIDE RECORDS SUMMARY | 2024-04-07 | XMS_ITS | Encounter Summary ---
Author Organization [facility] Address [address] [place] [address] Care Team Providers Care Leaf Stamper Name Role Phone Chuckie Chavira MD, Sebastian Archer Primary Care Provider [phone] Reason for Visit * Auth/Cert (Routine) Specialty Diagnoses / Procedures Referred By Contac t Referred To Contact Diagnoses Other tear of medial meniscus, current injury, right knee, subsequent encounter Procedures ND ARTHRS KNE SURG W/MENISCECTOMY MED/LAT W/SHVG Arthroscopy of right knee with medial meniscectomy. Further surgery as needed. Referral ID Status Reason Start Date Expiration Date Visits Re quested Visits Authorized [id number] 06/10/2015 07/10/2016 1 1 Encounter Details Date Type Department Care Team (Late st Contact Info) Description 06/22/2015 9:45 AM CDT Anesthesia Event [facility] Operating Room [address] [address] Gabe Flores MD NO ADDRESS ON FILE Anesthesia Record Procedure Summary Procedure Name Responsible Anesthesiologist Anesthesia Start Time Anesthesia Stop Time KNEE ARTHROSCOPY RIGHT WITH PARTIAL MEDIAL MENISCECTOMY, SUBTOTAL TRI COMPARTMENTAL CHONDRAL SHAVING (Right: Knee) Gabe Flores MD 06/22/15 0945 06/22/15 1101 Events Date Time Event Comment 06/22/2015 0916 0945 AN Equip Check Anesthesia eq uipment and materials checked in accordance with local policy. 0945 An Start 0945 An Start Data 0950 Pre-Induction Immediate pre- induction anesthetic assessment performed. Vital signs as noted on graphic. 0951 An Induction 0951 An LMA Patient pre-oxy genated; smooth intravenous induction; eyelids closed and secured with tape prior to LMA insertion; LMA inserted easily and without trauma; positive ETCO2 noted; smooth respirations with adequate tidal volume; dentition unchanged from preoperative exam. 0952 Anesthesia Ready 1023 An Tourn Inflated 300 mmHg 1044 Quick Note Procedure Arthr oscopy right knee Partial medial meniscectomy Tricompartmental condylar shaving 1051 An Tourn Deflated 1052 Supraglottic Removed Spontan eous respirations. LMA discontinued without difficulty. Oropharynx suctioned as indicated. 1056 an stop data 1101 An Stop Meds Name Total midazolam (VERSED) 1??mg/mL injection 2 mg fentaNYL (SUBLIMAZE) PF 50??mcg/mL injec tion 100 mcg lidocaine (XYLOCAINE) 2% injection 60 mg propofol (DIPRIVAN) 10??mg/mL injection 300 mg dexamethasone (DECADRON) 4 mg/mL injecti on 8 mg ondansetron (ZOFRAN) 4??mg/2 mL injectio n 4 mg ceFAZolin (ANCEF) IVPB 2,000 mg 2,000 mg phenylephrine (MAURI-SYNEPHRINE) 10??mg/mL injection 1,300 mcg ketorolac (TORADOL) 30??mg/mL injection 15 mg lactated ringers solution 100 mL * Agents Name Sevoflurane % Sevoflurane O2 Inspired O2 N2O Inspired N2O O2 * Blood No blood administrations on file. Lines, Drains, and Airways Type Details Placement Removal Peripheral IV Pre-Hospital Start: No; Orientation: Left; Location: Hand; Device: Angiocath; Gauge: 20 gauge; Insertion Attempts: 1; Patient Tolerance: tolerated well; Removal Indication: no longer indicated, removed per policy; Removal Interventions: pressure dressing, direct pressure, catheter intact 06/22/15 0753 by Ally Hdez RN 06/22/15 1243 by Michelle Martin, RN Supraglottic Airway Mask Joseph: mask ventilation not attempted; Type: LMA; Size: 5; Attempts: 1; Confirmation: satisfactory chest rise, SAO2, end tidal CO2; Comments: cuff pressure <20 cm H2O 06/22/15 0951 by Delonte Hsu, MEAT SLICER 06/22/15 1052 by Delonte Hsu, MEAT SLICER Adult Incision 06/22/15; 1039; surg ical incision; Right; knee; 06/23/15; 0137 06/22/15 1039 by Patria Carvajal RN 06/23/15 0137 by PROVIDER, DISCHARGE PATIENT documented in this encounter Social History Tobacco [...] on file documented as of this encounter OR Notes * Anesthesia Postprocedure Evaluation - Gabe Flores MD - 06/22/2015 9:01 PM CDT Post Anesthesia Evaluation Vitals: BP 120/74 mmHg Pulse 74 Temp(Src) 36.2 ??C (Skin) Resp 22 Ht 6' 5 (1.956 m) Wt 128.084 kg (282 lb 6 oz) BMI 33.48 kg/m2 SpO2 96% Pain Rating: Nausea/Vomiting: no nausea and no vomiting Post-Op hydration: well hydrated Respiratory function: no respiratory symptoms Airway patency: normal Cardiovascular function: Normal - Regular rate and rhythm Mental status, LOC: 0=alert; keenly responsive Patient participated in evaluation: yes Anesthetic complications: no Gabe Flores MD * Anesthesia Handoff - Delonte Hsu CRNA - 06/22/2015 11:17 AM CDT Post-Anesthetic transfer of care report elements to appropriate post-anesthesia recovery environment completed in accordance with procedure. I completed my handoff to the receiving nurse during which we: 1. Identified the patient 2. Identified the responsible provider 3. Reviewed the pertinent medical history 4. Discussed the surgical course 5. Reviewed intra-op anesthesia management and issues during anesthesia 6. Set expectations for post-procedure period 7. Allowed opportunity for questions and acknowledgement of understanding. Vital Signs: BP: 88/60 mmHg (06/22/2015 11:10 AM) Pulse: 69 (06/22/2015 11:10 AM) Heart Rate: 69 bpm (06/22/2015 11:10 AM) Temp: 36.2 ??C (06/22/2015 11:00 AM) Resp: 15 (06/22/2015 11:10 AM) SpO2: 99 % (06/22/2015 11:10 AM) 11:17 AM DELONTE HSU CRNA * Anesthesia Preprocedure Evaluation - Gabe Flores MD - 06/22/2015 9:01 AM CDT Anesthesia Evaluation Anesthesia Plan [facility] [address] [place] [address] PRE ANESTHESIA EVALUATION 06/22/2015 9:01 AM Name: Luis Daniel Ford Age: 60 y.o. Sex: male CSN: [id number] Procedure: Procedure(s): KNEE ARTHROSCOPY RIGHT WITH MEDIAL MENISCECTOMY, FURTHER SURGERY NEEDED. Surgeons/Assistants: Surgeon(s) and Role: * Addison Sanchez Jr., DO - Primary Diagnosis: Acute medial meniscus tear of right knee, subsequent encounter [S83.241D] Pre-Op Diagnosis Codes: * Acute medial meniscus tear of right knee, subsequent encounter [S83.241D] BP 178/90 mmHg Pulse 66 Temp(Src) 36.2 ??C (Temporal) Resp 18 Ht 6' 5 (1.956 m) Wt 128.084 kg (282 lb 6 oz) BMI 33.48 kg/m2 SpO2 98% Weight: Weight: 128.084 kg (282 lb 6 oz) (06/22/15725) Height: Ht Readings from Last 1 Encounters: 06/17/15 6' 5 (1.956 m) BMI: Body mass index is 33.48 kg/(m^2). NPO Status: Last Food Intake (Date): 06/22/15 (06/22/15730) Last Food Intake (hh:mm): 0000 (06/22/15730) Last Fluid Intake (Date): 06/22/15 (06/22/15730) Last Fluid Intake (hh:mm): 0000 (06/22/15730) No Known Allergies Prior to Admission Medications Prescriptions Last Dose Informant Patient Reported? Taking? NOVOLOG FLEXPEN 100 unit/mL Insulin Pen 06/21/2015 at Unknown time Patient Yes Yes Sig: Inject by subcutaneous injection 8 units AM, 7 units at lunch, 8 units with supper, plus sliding scale. ONETOUCH ULTRA TEST Strip Patient Yes Yes aspirin (GURPREET) 325 mg tablet 06/21/2015 at Unknown time Patient Yes Yes Sig: Take 325 mg by mouth daily. ergocalciferol (VITAMIN D2) 50,000 unit capsule 06/21/2015 at Unknown time Patient Yes Yes Sig: Take 50,000 Units by mouth every 7 days . insulin detemir (LEVEMIR) 100 unit/mL Insulin Pen 06/21/2015 at Unknown time Patient Yes Yes Sig: Inject 12 Units by subcutaneous injection 2 times daily . levothyroxine 100 mcg tablet 06/22/2015 at 0500 Patient Yes Yes Sig: Take 100 mcg by mouth daily . lisinopril (PRINIVIL) 20 mg tablet 06/21/2015 at Unknown time Patient Yes Yes Sig: Take 20 mg by mouth daily . Facility-Administered Medications: None GERD: no [] Controlled [] Uncontrolled Chronic Narcotic Use: no Current Facility-Administered Medications Medication Dose Route Frequency Provider Last Rate Last Dose ??? [COMPLETED] famotidine (PEPCID) tablet 20 mg 20 mg Oral Pre-Proc Once Chiki Raymond MD 20 mg at 06/22/15 0753 ??? lactated ringers solution IV Pre-Proc Continuous Chiki Raymond MD 125 mL/hr at 06/22/15 0753 ??? ceFAZolin (ANCEF) IVPB 2,000 mg 2,000 mg IV Pre-Proc Once Addison Sanchez Jr., DO Patient Active Problem List Diagnosis Date Noted ??? Acute medial meniscus tear of right knee 06/02/2015 Past Medical History Diagnosis Date ??? Diabetes ??? Thyroid disease hypothyroidism ??? Wears glasses ??? HTN (hypertension) ??? Numbness and tingling of right leg ??? Obstructive sleep apnea (adult) (pediatric) according to PM/ICD Consumer Services Advisor: N/A Past Surgical History Procedure Laterality Date ??? Hx tonsillectomy Previous Anesthesia Problems/Concerns: No anesthesia problems/complications History Substance Use Topics ??? Smoking status: Never Smoker ??? Smokeless tobacco: Not on file ??? Alcohol Use: 0.0 oz/week 0 Standard drinks or equivalent per week Comment: 6/week Family History Problem Relation Age of Onset ??? Cancer Father pancreat ??? Parkinson's Disease Father ??? Cancer Mother Pancreat Exercise Tolerance:good [] Unable to exercise due to physical disability CARDIAC RISK ASSESSMENT: low Beta Fransisco Therapy Indicated: No Beta Fransisco Last Dose: N/A Has patient received a beta fransisco within the last 24 hour?: not applicable for this patient (06/22/15 0731) LABS No results found for: WBC, MANUALWBC, HGB, HGBPOC, HCT, HCTPOC, PLT, MCV No results found for: NA, K, CL, CO2, CA, BUN, CREAT, GLUCOSE, TOTALPROTEIN, ALBUMIN, BILITOTAL, ALKPHOS, AST, ALT, ANIONGAP, BCRATIO No results found for: INR, PT, PROTIMEPOC No results found for: HCGURPOC, HCGQUALUR, HCGQUAL, HCGQUANT, HCGINTACT Lab Results Component Value Date/Time POC GLUCOSE 172* 06/22/2015 07:49 AM EKG: No results found for this or any previous visit. CXR: No results found for this or any previous visit. Other Studies/Considerations: None PHYSICAL EXAM ASA Class: ASA 2 - Patient with mild systemic disease with no functional limitations Heart: regular rate and rhythm Lungs: clear to auscultation Neuro: alert & oriented AIRWAY Airway Class: II (soft palate, uvula, fauces visible); Thyromental Distance (TMD): 3+ Finger Breadth Neck ROM: full Dentition: good ANESTHETIC PLAN: General I have seen and examined this patient and confirm that all data is current and accurate. Risks and plan of anesthesia discussed with patient and/or legal signs and displays sales representative and patient and/or legal signs and displays sales representative agreed to proceed. Gabe Flores MD 06/22/2015 documented in this encounter Plan of Treatment Not on file documented as of this encounter Visit Diagnoses Not on filedocumented in this encounter Administered Medications Inactive Administered Medications - up to 3 most recent administrations Medication Order MAR Action Action Date Dose Rate Site ceFAZolin (ANCEF) IVPB 2,000 mg 2,000 mg, IV, PRE-PROCEDURE ONCE, 1 dose, Starting on Sun06/22/15 at 0553, Until Sun06/22/15 at 0943, Routine, Pre-op, Antibiotic Indication: Surgical prophylaxisIndications:Acute medial meniscus tear of right knee, subsequent encounter Given 06/22/2015 9:43 AM CDT 2,000 mg dexamethasone (DECADRON) injection IV, INTRA-PROCEDURE PRN, Starting on Sun06/22/15 at 0944, Until Sun06/22/15 at 1117, Routine, Anesthesia Intra-op Given 06/22/2015 9:44 AM CDT 8 mg fentaNYL PF (SUBLIMAZE) 50 mcg/mL injection IV, INTRA-PROCEDURE PRN, Starting on Sun06/22/15 at 0951, Until Sun06/22/15 at 1117, Routine, Anesthesia Intra-op Given 06/22/2015 10:25 AM CDT 50 mcg Given 06/22/2015 9:51 AM CDT 50 mcg ketorolac (TORADOL) injection INTRA-PROCEDURE PRN, Starting on Sun06/22/15 at 1048, Until Sun06/22/15 at 1117, Routine, Anesthesia Intra-op Given 06/22/2015 10:48 AM CDT 15 mg lidocaine 2 % (XYLOCAINE) injection INTRA-PROCEDURE PRN, Starting on Sun06/22/15 at 0951, Until Sun06/22/15 at 1117, Other (See Comment), Routine, Anesthesia Intra-op Given 06/22/2015 9:51 AM CDT 60 mg midazolam (VERSED) injection IV, INTRA-PROCEDURE PRN, Starting on Sun06/22/15 at 0944, Until Sun06/22/15 at 1117, Routine, Anesthesia Intra-op Given 06/22/2015 9:44 AM CDT 2 mg ondansetron (ZOFRAN) 4 mg/2 mL injection IV, INTRA-PROCEDURE PRN, Starting on Sun06/22/15 at 0944, Until Sun06/22/15 at 1117, Nausea/Emesis, Routine, Anesthesia Intra-op Given 06/22/2015 9:44 AM CDT 4 mg phenylephrine (MAURI-SYNEPHRINE) 10 mg/mL injection INTRA-PROCEDURE PRN, Starting on Sun06/22/15 at 1002, Until Sun06/22/15 at 1117, Routine, Anesthesia Intra-op Given 06/22/2015 10:41 AM CDT 200 mcg Given 06/22/2015 10:34 AM CDT 200 mcg Given 06/22/2015 10:21 AM CDT 200 mcg propofol (DIPRIVAN) injection IV, INTRA-PROCEDURE PRN, Starting on Sun06/22/15 at 0951, Until Sun06/22/15 at 1117, Anesthesia Intra-op Given 06/22/2015 9:51 AM CDT 300 mg documented in this encounter Care Teams Leaf Stamper Relationship Specialty Start Date End Date Sebastian Noguera Jr., MD PCP - General Family Practice 06/02/15 documented as of this encounter
--- OUTSIDE RECORDS SUMMARY | 2024-04-07 | XMS_ITS | Encounter Summary ---
Author Organization [facility] Address [address] [place] [address] Care Team Providers Care Mortgage Loan Coordinator Name Role Phone Cuhckie Chavira MD, Sebastian rAcher Primary Care Provider [phone] Reason for Visit * Reason Onset Date Comments Other 06/29/2015 Patient outreach post op. Encounter Details Date Type Department Care Team (Late st Contact Info) Description 06/29/2015 Patient Outreach [facility] Orthopedic Surgery - [address], [address] [place] [address] Addison Sanchez Jr., DO NO ADDRESS ON FILE Other (Patient outreach post op.) Social History Tobacco Use Types Packs/Day Years [...] encounter Miscellaneous Notes * Telephone Encounter - Paige Schmid - 06/29/2015 12:03 PM CDT Spoke with patient regarding how he is doing after his knee arthroscopy. Patient states he is doingvery well and has a follow-up visit scheduled for 07/07/15. documented in this encounter Plan of Treatment Not on file documented as of this encounter Visit Diagnoses Not on filedocumented in this encounter Care Teams Mortgage Loan Coordinator Relationship Specialty Start Date End Date Sebastian Noguera Jr. MD PCP - General Family Practice 06/02/15 documented as of this encounter
--- OUTSIDE RECORDS SUMMARY | 2024-04-07 | XMS_ITS | Encounter Summary ---
Author Organization [facility] Address [address] Attn: Epic Prelude ADT [place] [address] Care Team Providers Care Weighing Station Operator Name Role Phone Chuckie Chavira MD, Sebastian Archer Primary Care Provider [phone] Encounter Details Date Type Department Care Team (Latest Contact Info) Description 05/26/2019 Travel Social History Tobacco Use Types Packs/Day [...] on filedocumented in this encounter Care Teams Weighing Station Operator Relationship Specialty Start Date End Date Sebastian Noguera Jr., MD PCP - General Family Practice 06/02/15 documented as of this encounter
--- OUTSIDE RECORDS SUMMARY | 2024-04-07 | XMS_ITS | Encounter Summary ---
Author Organization [facility] Address 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 Name Role Phone Chuckie Chavira MD, Sebastian Archer Primary Care Provider [phone] Encounter Details Date Type Department Care Team (Latest Contact Info) Description 11/12/2018 9:24 AM CDT - 11/12/2018 11:59 PM T Hospital Encounter [facility] Laboratory Services [address] [facility] [address] [facility] [address] [place] [id number] [place] [address] [facility] [address] [place] [address] Discharge Disposition: Home or Self [...] Associated Diagnosis Comments CBC WITH DIFFERENTIAL Routine 11/12/2018 9:26 AM CDT 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 TSH Routine 11/12/2018 9:26 AM CDT 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 T4 FREE Routine 11/12/2018 9:26 AM CDT 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 COMPREHENSIVE METABOLIC PANEL Routine 11/12/2018 9:26 AM CDT 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 documented in this encounter Results * T4 FREE (11/12/2018 9:26 AM CDT) T4 FREE 0.97 0.93 - 1.70 ng/dL 11/12/2018 10:39 AM CDT [facility] Blood Venipuncture / Unknown 11/12/2018 9:26 AM CDT 11/12/2018 9:26 AM CDT us Partha Ferro MD CHEMISTRY ORDERABLES Final Re sult Performing Organization Address City/[facility]/ZIP Co de Phone Number [facility] CLIA# [id number] [address] [place] [address] * (ABNORMAL) TSH (11/12/2018 9:26 AM CDT) TSH 7.90(H) 0.27 - 4.20 uIU/mL 11/12/2018 10:39 AM CDT [facility] Blood Venipuncture / Unknown 11/12/2018 9:26 AM CDT 11/12/2018 9:26 AM CDT us Partha Ferro MD CHEMISTRY ORDERABLES Final Re sult [facility] CLIA# [id number] [address] [place] [address] * (ABNORMAL) COMPREHENSIVE METABOLIC PANEL (11/12/2018 9:26 AM CDT) [facility] SODIUM 138 136 - 145 mmol/L 11/12/2018 10:34 AM CDT [facility] POTASSIUM 4.3 3.4 - 5.1 mmol/L 11/12/2018 10:34 AM T [facility] - [facility] CHLORIDE 96(L) 98 - 107 mmol/L 11/12/2018 10:34 AM T [facility] - [facility] CO2 25 22 - 29 mmol/L 11/12/2018 10:34 AM T [facility] CALCIUM 9.5 8.6 - 10.4 mg/dL 11/12/2018 10:34 AM T [facility] BUN 12 6 - 20 mg/dL 11/12/2018 10:34 AM T [facility] CREATININE 1.05 0.70 - 1.20 mg/dL 11/12/2018 10:34 AM T [facility] GLUCOSE 263(H) 74 - 99 mg/dL 11/12/2018 10:34 AM T [facility] TOTAL PROTEIN 7.7 6.3 - 8.7 g/dL 11/12/2018 10:34 AM [facility] ALBUMIN 4.2 3.5 - 5.2 g/dL 11/12/2018 10:34 AM T [facility] BILIRUBIN TOTAL 0.5 0.2 - 1.3 mg/dL 11/12/2018 10:34 AM T [facility] ALKALINE PHOSPHATASE 70 40 - 150 U/L 11/12/2018 10:34 AM T [facility] AST 11 0 - 41 U/L 11/12/2018 10:34 AM T [facility] ALT 7 0 - 41 U/L 11/12/2018 10:34 AM T [facility] GFR >60 >=60 mL/min/1.7 3 sq meter 11/12/2018 10:34 AM CDT [facility] Comment: eGFR has not been validated for [...] GFR, >60 >=60 mL/min/1.7 3 sq meter 11/12/2018 10:34 AM CDT [facility] ANION GAP 17(H) 8 - 16 mmol/L 11/12/2018 10:34 AM T [facility] Blood Venipuncture / Unknown 11/12/2018 9:26 AM CDT 11/12/2018 9:26 AM CDT us K Eligio Ferro MD CHEMISTRY ORDERABLES Final Re sult [facility] CLIA# [id number] [place] [address] * (ABNORMAL) CBC WITH DIFFERENTIAL (11/12/2018 9:26 AM CDT) WBC 9.8 4.5 - 10.5 K/uL 11/12/2018 10:58 AM CDT [facility] RBC 5.22 4.50 - 5.40 M/uL 11/12/2018 10:58 AM T [facility] HEMOGLOBIN 15.9 13.6 - 16.5 g/dL 11/12/2018 10:58 AM CDT [facility] HEMATOCRIT 45.2 40.0 - 48.0 % 11/12/2018 10:58 AM T [facility] MCV 86.6 82.0 - 99.0 fL 11/12/2018 10:58 AM CDT [facility] MCH 30.5 27.8 - 34.5 pg 11/12/2018 10:58 AM CDT [facility] MCHC 35.3 32.5 - 35.5 g/dL 11/12/2018 10:58 AM CDT [facility] RDW 13.2 11.5 - 14.5 % 11/12/2018 10:58 AM CDT [facility] PLATELETS 253 160 - 420 K/uL 11/12/2018 10:58 AM CDT [facility] MPV 8.6(L) 8.7 - 12.7 fL 11/12/2018 10:58 AM CDT [facility] NEUTROPHILS 66 45 - 70 % 11/12/2018 10:58 AM CDT [facility] LYMPHOCYTES 24 16 - 45 % 11/12/2018 10:58 AM CDT [facility] MONOCYTES 6 3 - 13 % 11/12/2018 10:58 AM CDT [facility] EOSINOPHILS 3 0 - 7 % 11/12/2018 10:58 AM CDT [facility] BASOPHILS 1 0 - 2 % 11/12/2018 10:58 AM CDT [facility] NEUTROPHIL ABSOLUTE 6.50 1.90 - 7.00 K/uL 11/12/2018 10:58 AM CDT [facility] LYMPHOCYTE ABSOLUTE 2.40 K/uL 11/12/2018 10:58 AM CDT [facility] MONOCYTE ABSOLUTE 0.60 K/uL 11/12/2018 10:58 AM CDT [facility] EOSINOPHIL ABSOLUTE 0.30 0.00 - 0.70 K/uL 11/12/2018 10:58 AM CDT [facility] BASOPHILS ABSOLUTE 0.10 K/uL 11/12/2018 10:58 AM CDT [facility] Blood Venipuncture / Unknown 11/12/2018 9:26 AM CDT 11/12/2018 9:26 AM CDT K Eligio Ferro MD HEMATOLOGY ORDERABLES Final R esult [facility] CLIA# [id number] [address] [place] [address] documented in this encounter Visit Diagnoses Diagnosis 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
--- OUTSIDE RECORDS SUMMARY | 2024-04-07 | XMS_ITS | Encounter Summary ---
Author Organization [email or web address] Address [address] [place] [address] Care Team Providers Care Stockroom Worker Name Role Phone Chuckie Chavira MD, Sebastian Archer Primary Care Provider [phone] Reason for Visit * Auth/Cert Specialty Diagnoses / Procedures Referred By Bernardino lucero Referred To Contact Laboratory [facility] Laboratory Services [id number] [address] [facility] [address] [place] [address] Phone: tel: fax: Referral ID Status Reason Start Date Expiration Date Visits Re quested Visits Authorized [id number] 1 1 Encounter Details Date Type Department Care Team (Latest Contact Info) Description 05/26/2019 4:10 PM CDT - 05/26/2019 11:59 PM CDT Hospital Encounter [facility] Laboratory Services [id number] [address] [facility] [address] [place] [address] [place] [address] [address] [facility] [address] [address] Discharge Disposition: Home or Self [...] Associated Diagnosis Comments CBC WITH DIFFERENTIAL Routine 05/26/2019 4:16 PM CDT 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 Blood Venipuncture / Unknown 05/26/2019 4:16 PM CDT 05/26/2019 4:16 PM CDT us K Eligio Ferro MD CHEMISTRY ORDERABLES Final Re sult [facility]# [id number] [address] [place] [id number] * (ABNORMAL) TSH (05/26/2019 4:16 PM CDT) TSH 6.24(H) 0.27 - 4.20 uIU/mL 05/26/2019 10:25 PM CDT [facility] Blood Venipuncture / Unknown 05/26/2019 4:16 PM CDT 05/26/2019 4:16 PM CDT K Eligio Ferro MD CHEMISTRY ORDERABLES Final Re sult [facility] CLIA# [id number] [facility] [place] [id number] * (ABNORMAL) COMPREHENSIVE METABOLIC PANEL (05/26/2019 4:16 PM CDT) SODIUM 136 136 - 145 mmol/L 05/26/2019 10:14 PM CDT [email or web address] POTASSIUM 4.3 3.5 - 5.0 mmol/L 05/26/2019 10:14 PM CDT [email or web address] CHLORIDE 93(L) 98 - 107 mmol/L 05/26/2019 10:14 PM CDT [email or web address] CO2 28 22 - 29 mmol/L 05/26/2019 10:14 PM CDT [email or web address] CALCIUM 9.5 8.6 - 10.2 mg/dL 05/26/2019 10:14 PM CDT [email or web address] BUN 10 8 - 23 mg/dL 05/26/2019 10:14 PM CDT [email or web address] CREATININE 0.95 0.67 - 1.17 mg/dL 05/26/2019 10:14 PM CDT [email or web address] GLUCOSE 277(H) 74 - 99 mg/dL 05/26/2019 10:14 PM CDT [email or web address] TOTAL PROTEIN 7.6 6.7 - 8.6 g/dL 05/26/2019 10:14 PM CDT [email or web address] [place] ALBUMIN 4.4 3.5 - 5.2 g/dL 05/26/2019 10:14 PM CDT [email or web address] BILIRUBIN TOTAL 0.7 0.2 - 1.1 mg/dL 05/26/2019 10:14 PM CDT [email or web address] ALKALINE PHOSPHATASE 71 40 - 129 U/L 05/26/2019 10:14 PM CDT [facility] AST 11 <41 U/L 05/26/2019 10:14 PM CDT [facility] ALT 12 <42 U/L 05/26/2019 10:14 PM CDT [facility] GFR >60 >=60 mL/min/1.7 3 sq meter 05/26/2019 10:14 PM CDT [facility] Comment: eGFR has not been validated [...] GFR, >60 >=60 mL/min/1.7 3 sq meter 05/26/2019 10:14 PM CDT [facility] ANION GAP 15 8 - 16 mmol/L 05/26/2019 10:14 PM CDT [facility] Blood Venipuncture / Unknown 05/26/2019 4:16 PM CDT 05/26/2019 4:16 PM CDT Narrative [facility] - 05/26/2019 10:14 PM CDT Samples containing indocyanine green cause interferences on Total and/or Direct Bilirubin and must not be measured. us K Eligio Ferro MD CHEMISTRY ORDERABLES Final Re sult [facility]# [id number] [address] [place] [address] * (ABNORMAL) CBC WITH DIFFERENTIAL (05/26/2019 4:16 PM CDT) WBC 11.0(H) 4.0 - 9.8 K/uL 05/26/2019 9:52 PM CDT [email or web address] RBC 5.60(H) 4.50 - 5.40 M/uL 05/26/2019 9:52 PM CDT [email or web address] HEMOGLOBIN 16.0 13.6 - 16.5 g/dL 05/26/2019 9:52 PM CDT [email or web address] HEMATOCRIT 47.4 40.0 - 48.0 % 05/26/2019 9:52 PM CDT [email or web address] MCV 84.6 82.0 - 99.0 fL 05/26/2019 9:52 PM CDT [email or web address] MCH 28.6 27.2 - 32.6 pg 05/26/2019 9:52 PM CDT [email or web address] MCHC 33.8 31.5 - 35.5 g/dL 05/26/2019 9:52 PM CDT [email or web address] RDW 12.6 11.5 - 14.5 % 05/26/2019 9:52 PM CDT [email or web address] RDW-STDEV 38.4 37.1 - 48.7 fL 05/26/2019 9:52 PM CDT [email or web address] PLATELETS 249 140 - 350 K/uL 05/26/2019 9:52 PM CDT [email or web address] MPV 9.7 9.3 - 12.4 fL 05/26/2019 9:52 PM CDT [email or web address] NEUTROPHILS 72 % 05/26/2019 9:52 PM CDT [email or web address] LYMPHOCYTES 18 % 05/26/2019 9:52 PM CDT [email or web address] MONOCYTES 6 % 05/26/2019 9:52 PM CDT [email or web address] EOSINOPHILS 2 % 05/26/2019 9:52 PM CDT [email or web address] BASOPHILS 1 % 05/26/2019 9:52 PM CDT [email or web address] IMMATURE GRANULOCYTES 1 % 05/26/2019 9:52 PM CDT [email or web address] Comment:IG (Immature Granulo cyte) count includes Metamyelocytes, Myelocytes, and Promyelocytes NEUTROPHIL ABSOLUTE 7.91(H) 1.90 - 7.00 K/uL 05/26/2019 9:52 PM CDT [facility] LYMPHOCYTE ABSOLUTE 1.99 0.70 - 4.50 K/uL 05/26/2019 9:52 PM CDT [facility] [place] MONOCYTE ABSOLUTE 0.67 0.10 - 1.30 K/uL 05/26/2019 9:52 PM CDT [facility] EOSINOPHIL ABSOLUTE 0.21 0.00 - 0.70 K/uL 05/26/2019 9:52 PM CDT [facility] [place] BASOPHILS ABSOLUTE 0.10 0.00 - 0.20 K/uL 05/26/2019 9:52 PM CDT 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
--- OUTSIDE RECORDS SUMMARY | 2024-04-07 | XMS_ITS | Encounter Summary ---
Author Organization [facility] Address [address] [place] [address] Care Team Providers Care Legal Word Processor Name Role Phone Chuckie Chavira MD, Sebastian Archer Primary Care Provider [phone] Reason for Visit * Reason Comments Follow Up follow up MRI right knee results Encounter Details Date Type Department Care Team (Late st Contact Info) Description 06/09/2015 3:15 PM CDT Office Visit [facility] Orthopedic Surgery - [address] [place] [address] Addison Sanchez Jr., DO NO ADDRESS ON FILE Pre-op testing (Primary Dx); Acute medial meniscus tear of right knee, subsequent encounter Social History Tobacco Use Types Packs/Day [...] Sign Reading Time Taken Comments Blood Pressure 136/80 06/09/2015 3:29 PM CDT Pulse 60 06/09/2015 3:29 PM CDT Temperature - - Respiratory Rate - - Oxygen Saturation - - Inhaled Oxygen Concentration - - Weight 130.6 kg (288 lb) 06/09/2015 3:29 PM CDT Height 195.6 cm (6' 5 ) 06/09/2015 3:29 PM CDT Body Mass Index 34.15 06/09/2015 3:29 PM CDT documented in this encounter Progress Notes * Addison Sanchez Jr., DO - 06/09/2015 3:29 PM CDT [facility] PATIENT OFFICE VISIT Date of Service: 06/09/2015 PATIENT: Luis Daniel Ford : 1955 HPI Luis Daniel Ford is a 60 y.o. male who presents to the orthopedic surgery clinic today for evaluation of his right knee. He notes a couple months of pain. He notes falling over a carol tree while carrying a bundle and fell on the knee. He had popping posteriorly at that time but states this has happened before. He has some locking/giving away of the knee occuring since the injury. He takes fourOTC Advil for back pain radiating into the right lower abdomen. Patient's notes the patient has been doing heavy work with lifting and working in the crawl space of their home. He has a history of diabetes with neuropathy. He has not seen his PCP in 2 years or his environmental studies department chair in one year. Patient is here today to review MRI right knee results. Patient complains of right posterior ankle pain, which his reports is worse when he drives. He admits to antalgic gait. He did see his environmental studies department chair since his last visit with me as recommended. He was advised to begin vitamin B12, vitamin D, and increase his thyroid medication dose. He reports blood glucose levels around 150, which isimproved from previously for him. ?? Duration: Couple months ?? Causation: falling injury ?? Pain Location: right knee ?? Quality: Aching ?? Modifying Factors: locking/giving away ?? Associated Symptoms: edema ?? Treatment So Far: OTC advil, MRI right knee Past Medical History Diagnosis Date ??? Diabetes ??? Thyroid disease hypothyroidism Past Surgical History Procedure Laterality Date ??? Pt denies relevant surgical history History Social History ??? Marital Status: Spouse Name: N/A ??? Number of Children: N/A ??? Years of Education: N/A Occupational History ??? Not on file. Social History Main Topics ??? Smoking status: Never Smoker ??? Smokeless tobacco: Not on file ??? Alcohol Use: No ??? Drug Use: No ??? Sexual Activity: Not on file Other Topics Concern ??? Not on file Social History Narrative Family History Problem Relation Age of Onset ??? Cancer Father pancreat ??? Parkinson's Disease Father ??? Cancer Mother Pancreat No Known Allergies Current Outpatient Prescriptions Medication Sig Dispense Refill ??? levothyroxine 100 mcg tablet ??? lisinopril (PRINIVIL) 20 mg tablet ??? ONETOUCH ULTRA TEST Strip ??? insulin detemir (LEVEMIR) 100 unit/mL Insulin Pen Inject 50 Units by subcutaneous injection daily at bedtime. ??? ergocalciferol (VITAMIN D2) 50,000 unit capsule Take 50,000 Units by mouth. ??? aspirin (GURPREET) 325 mg tablet Take 325 mg by mouth daily. ??? NOVOLOG FLEXPEN 100 unit/mL Insulin Pen No current facility-administered medications for this visit. [...] No heat intolerance. No excessive thirst or urination. Hematological: No abnormal bleeding. No abnormal bruising. No cancer. Neurological: No headaches or migraines. No seizures. No weakness. +numbness or tingling (feet). Allergy: No seasonal allergies. Respiratory: No cough. No difficulty sleeping. No wheezing. No blood in sputum. Gastrointestinal: No nausea. No vomiting. No diarrhea. No abdominal pain. No bloody stools. No acidreflux. Musculoskeletal: no muscle cramps. +joint pain (right knee, right ankle). +back pain. No neck pain. Skin: No rash. No itching. No suspicious lesions. Breasts: No lumps or masses. No nipple discharge. No tenderness. Psychological: No depression. No anxiety. No bipolar. PHYSICAL EXAMINATION Chief Complaint Patient presents with ??? Follow Up follow up MRI right knee results BP 136/80 mmHg Pulse 60 Ht 6' 5 (1.956 m) Wt 130.636 kg (288 lb) BMI 34.14 kg/m2 General appearance: Alert, cooperative, no distress, [...] Oriented to self. No memory impairment Extremities: Right Knee exam: Inspection No erythema, bruising, discoloration, or gross deformity. +2 edema of the bilateral legs. No joint line tenderness. No subpatellar pain. Range of motion KNEE: Active range of motion from 15??-85?? BACK: Negative straight leg raise test. Negative Lasegue's test. HIP: Negative Tr MALLORY's test. MENISCUS: Patient resisted Phyllis's manuever. ANKLE: Full range of motion of ankle and toes. Stability No dislocation or subluxation. Negative Brittani's test. Negative anterior and posterior drawer's sign. No collateral ligament instability. Muscle strength and tone 5/5 in ankles and digits. Pulses 2/4. No dysesthesias to light touch. No lymphedema or lymphadenitis. Skin is intact. DTR's 2/4. RADIOGRAPHIC FINDINGS X-rays of the right knee, 3 views: X-ray the right knee AP showed the joint spaces to be well maintained. There are no significant osteophytes. Anterior x- ray shows abnormality of the inferior pole the patella which could be compatible with a possible nondisplaced fracture. Hadley view shows irregularity of the medial facet of the patella which could be compatible with healing fracture and thereis a defect in the medial femoral condyle which also could be compatible with a fracture. These fractures appear to be subacute. Lateral x-ray shows a lucency over the anterior tibia. These also could represent a subacute healing fracture. Assessment is abnormal x-ray of the right knee with signs of subacute fracture involving the patella and the medial femoral condyle. ?? EXAM: MRI RIGHT KNEE, 06/09/2015 8:38 AM ?? INDICATION: Knee pain. ?? FINDINGS: There is a radial tear involving the posterior horn of the medial meniscus. There is also poorly defined abnormal signal in the posterior horn of the lateral meniscus involving superior and inferior surfaces suggesting tear. The ACL, PCL and collateral ligaments are intact. There is no focal cartilage injury or osteochondral defect. There is minimal joint effusion. There is no periarticular mass or cyst. ?? IMPRESSION IMPRESSION: Tear of the medial meniscus and probable tear of the lateral meniscus as described. Small joint effusion. ? Dictated by: MARIYA JACOBS MD on SunJun 09, 2015?? 9:41:10 AM CDT Transcribed: SunJun 09, 2015?? 9:51:27 AM CDT [SSI] IMPRESSION Meniscal tears, worse medially, right knee Possible subacute patella fracture, right knee. Not evident on MRI right knee PLAN MRI right knee reviewed today He may take the OTC dose of Tylenol for pain Recommend Vitamin B6 50 mg daily Knee arthroscopy with medical menisectomy, possible lateral menisectomy, right Further surgical intervention as needed Advised to go to ER immediately after surgery for SOB or CP I informed the patient of benefits and risks of surgery that include infection, damage to nerves and blood vessels, DVT, PE, . Possibility of a blood transfusion that carries risk of AIDS and hepatitis in reaction to the blood. Patient aware of the risk of failed surgery to fix the problem, delayed recovery, and further surgical intervention if necessary. Knowing these risks and benefits thepatient elects to move forward with procedure. This note has been prepared by Ramses Phillips, for Addison Sanchez DO on 06/09/2015 at 3:29 PM. The scribe's documentation has been prepared under my direction and personally reviewed by me in its entirety. I confirm that the note above accurately reflects all work, treatment, procedures, and medical decision making performed by me, on 06/09/2015 at 3:46 PM -- Addison Sanchez DO documented in this encounter H&P Notes * Addison Sanchez Jr., DO - 06/22/2015 7:17 AM CDT I have reviewed the last H&P and examined the patient today and there are no changes. Addison Sanchez Jr., DO * Addison Sanchez Jr., DO - 06/09/2015 3:54 PM CDT History and physical Luis Daniel Ford is a 60 y.o. male who presents to the orthopedic surgery clinic today for evaluation of his right knee. He notes a couple months of pain. He notes falling over a carol tree while carrying a bundle and fell on the knee. He had popping posteriorly at that time but states this has happened before. He has some locking/giving away of the knee occuring since the injury. He takes fourOT Advil for back pain radiating into the right lower abdomen. Patient's notes the patient has been doing heavy work with lifting and working in the crawl space of their home. He has a history of diabetes with neuropathy. He has not seen his PCP in 2 years or his environmental studies department chair in one year. Patient is here today to review MRI right knee results. Patient complains of right posterior ankle pain, which his reports is worse when he drives. He admits to antalgic gait. He did see his environmental studies department chair since his last visit with me as recommended. He was advised to begin vitamin B12, vitamin D, and increase his thyroid medication dose. He reports blood glucose levels around 150, which isimproved from previously for him. ?? Duration: Couple months ?? Causation: falling injury ?? Pain Location: right knee ?? Quality: Aching ?? Modifying Factors: locking/giving away ?? Associated Symptoms: edema ?? Treatment So Far: OTC advil, MRI right knee Past Medical History Diagnosis Date ??? Diabetes ??? Thyroid disease hypothyroidism Past Surgical History Procedure Laterality Date ??? Pt denies relevant surgical history History Social History ??? Marital Status: Spouse Name: N/A ??? Number of Children: N/A ??? Years of Education: N/A Occupational History ??? Not on file. Social History Main Topics ??? Smoking status: Never Smoker ??? Smokeless tobacco: Not on file ??? Alcohol Use: No ??? Drug Use: No ??? Sexual Activity: Not on file Other Topics Concern ??? Not on file Social History Narrative Family History Problem Relation Age of Onset ??? Cancer Father pancreat ??? Parkinson's Disease Father ??? Cancer Mother Pancreat No Known Allergies Current Outpatient Prescriptions Medication Sig Dispense Refill ??? levothyroxine 100 mcg tablet ??? lisinopril (PRINIVIL) 20 mg tablet ??? ONETOUCH ULTRA TEST Strip ??? insulin detemir (LEVEMIR) 100 unit/mL Insulin Pen Inject 50 Units by subcutaneous injection daily at bedtime. ??? ergocalciferol (VITAMIN D2) 50,000 unit capsule Take 50,000 Units by mouth. ??? aspirin (GURPREET) 325 mg tablet Take 325 mg by mouth daily. ??? NOVOLOG FLEXPEN 100 unit/mL Insulin Pen No current facility-administered medications for this visit. [...] No heat intolerance. No excessive thirst or urination. Hematological: No abnormal bleeding. No abnormal bruising. No cancer. Neurological: No headaches or migraines. No seizures. No weakness. +numbness or tingling (feet). Allergy: No seasonal allergies. Respiratory: No cough. No difficulty sleeping. No wheezing. No blood in sputum. Gastrointestinal: No nausea. No vomiting. No diarrhea. No abdominal pain. No bloody stools. No acidreflux. Musculoskeletal: no muscle cramps. +joint pain (right knee, right ankle). +back pain. No neck pain. Skin: No rash. No itching. No suspicious lesions. Breasts: No lumps or masses. No nipple discharge. No tenderness. Psychological: No depression. No anxiety. No bipolar. PHYSICAL EXAMINATION Chief Complaint Patient presents with ??? Follow Up follow up MRI right knee results BP 136/80 mmHg Pulse 60 Ht 6' 5 (1.956 m) Wt 130.636 kg (288 lb) BMI 34.14 kg/m2 General appearance: Alert, cooperative, no distress, [...] Oriented to self. No memory impairment Extremities: Right Knee exam: Inspection No erythema, bruising, discoloration, or gross deformity. +2 edema of the bilateral legs. No joint line tenderness. No subpatellar pain. Range of motion KNEE: Active range of motion from 15??-85?? BACK: Negative straight leg raise test. Negative Lasegue's test. HIP: Negative Tr MALLORY's test. MENISCUS: Patient resisted Phyllis's manuever. ANKLE: Full range of motion of ankle and toes. Stability No dislocation or subluxation. Negative Brittani's test. Negative anterior and posterior drawer's sign. No collateral ligament instability. Muscle strength and tone 5/5 in ankles and digits. Pulses 2/4. No dysesthesias to light touch. No lymphedema or lymphadenitis. Skin is intact. DTR's 2/4. RADIOGRAPHIC FINDINGS X-rays of the right knee, 3 views: X-ray the right knee AP showed the joint spaces to be well maintained. There are no significant osteophytes. Anterior x- ray shows abnormality of the inferior pole the patella which could be compatible with a possible nondisplaced fracture. Hadley view shows irregularity of the medial facet of the patella which could be compatible with healing fracture and thereis a defect in the medial femoral condyle which also could be compatible with a fracture. These fractures appear to be subacute. Lateral x-ray shows a lucency over the anterior tibia. These also could represent a subacute healing fracture. Assessment is abnormal x-ray of the right knee with signs of subacute fracture involving the patella and the medial femoral condyle. ?? EXAM: MRI RIGHT KNEE, 06/09/2015 8:38 AM ?? INDICATION: Knee pain. ?? FINDINGS: There is a radial tear involving the posterior horn of the medial meniscus. There is also poorly defined abnormal signal in the posterior horn of the lateral meniscus involving superior and inferior surfaces suggesting tear. The ACL, PCL and collateral ligaments are intact. There is no focal cartilage injury or osteochondral defect. There is minimal joint effusion. There is no periarticular mass or cyst. ?? IMPRESSION IMPRESSION: Tear of the medial meniscus and probable tear of the lateral meniscus as described. Small joint effusion. ? Dictated by: MARIYA JACOBS MD on SunJun 09, 2015?? 9:41:10 AM CDT Transcribed: SunJun 09, 2015?? 9:51:27 AM CDT [SSI] IMPRESSION Meniscal tears, worse medially, right knee Possible subacute patella fracture, right knee. Not evident on MRI right knee PLAN MRI right knee reviewed today He may take the OTC dose of Tylenol for pain Recommend Vitamin B6 50 mg daily Knee arthroscopy with medical menisectomy, possible lateral menisectomy, right Further surgical intervention as needed Advised to go to ER immediately after surgery for SOB or CP I informed the patient of benefits and risks of surgery that include infection, damage to nerves and blood vessels, DVT, PE, . Possibility of a blood transfusion that carries risk of AIDS and hepatitis in reaction to the blood. Patient aware of the risk of failed surgery to fix the problem, delayed recovery, and further surgical intervention if necessary. Knowing these risks and benefits thepatient elects to move forward with procedure. documented in this encounter Plan of Treatment Not on file documented as of this encounter Visit Diagnoses Diagnosis Pre-op testing- Primary Preoperative examination, unspecified Acute medial meniscus tear of right knee, subsequent encounter documented in this encounter Care Teams Legal Word Processor Relationship Specialty Start Date End Date Sebastian Noguera Jr., MD PCP - General Family Practice 06/02/15 documented as of this encounter
--- OUTSIDE RECORDS SUMMARY | 2024-04-07 | XMS_ITS | Encounter Summary ---
Author Organization [email or web address] Address [address] [place] [address] Care Team Providers Care Tower Supervisor Name Role Phone Chuckie Chavira MD, Sebastian Archer Primary Care Provider [phone] [phone] Reason for Referral * Outpatient Services (Routine) - Closed Specialty Diagnoses / Procedures Referred By Contac t Referred To Contact Diagnoses Right knee pain Acute medial meniscus tear of right knee, initial encounter Procedures MRI KNEE WO CONTRAST RIGHT Addison Sanchez Jr., DO Referral ID Status Reason Start Date Expiration Date V isits Requested Visits Authorized [id number] Closed [facility] CTS 06/04/2015 07/19/2015 1 1 Reason for Visit * Outpatient Services (Routine) - Closed Specialty Diagnoses / Procedures Referred By Contac t Referred To Contact Diagnoses Right knee pain Acute medial meniscus tear of right knee, initial encounter Procedures MRI KNEE WO CONTRAST RIGHT Addison Sanchez Jr., DO Referral ID Status Reason Start Date Expiration Date V isits Requested Visits Authorized [id number] Closed ST[facility] CTS 06/04/2015 07/19/2015 1 1 Encounter Details Date Type Department Care Team (Latest Contact Info) Description 06/09/2015 7:36 AM CDT - 06/09/2015 11:59 PM CDT Hospital Encounter [facility] [address] [place] [address] Addison Sanchez Jr., DO NO ADDRESS ON FILE Discharge Disposition: Home or Self Care Social [...] Procedure Name Priority Date/Time Associated Diagnosis Comments MRI KNEE WO CONTRAST RIGHT Routine 06/09/2015 8:38 AM CDT Right knee pain Acute medial meniscus tear of right knee, initial encounter documented in this encounter Results * MRI KNEE WO CONTRAST RIGHT (06/09/2015 8:38 AM CDT) Anatomical Region Laterality Modality Lower Extremity Magnetic Resonan ce 06/09/2015 8:38 AM CDT Impressions 06/09/2015 12:48 PM CDT IMPRESSION: Tear of the medial meniscus and probable tear of the lateral meniscus as described. Small joint effusion. Narrative 06/09/2015 12:48 PM CDT EXAM: MRI RIGHT KNEE, 06/09/2015 8:38 AM INDICATION: Knee pain. FINDINGS: There is a radial tear involving [...] There is no periarticular mass or cyst. Procedure Note Maurizio Craig MD - 06/09/2015 EXAM: MRI RIGHT KNEE, 06/09/2015 8:38 AM INDICATION: Knee pain. FINDINGS: There is a radial tear involving [...] There is no periarticular mass or cyst. IMPRESSION IMPRESSION: Tear of the medial meniscus and probable tear of the lateral meniscus as described. Small joint effusion. us Addison Sanchez Jr., DO MR ORDERABLES Final Res ult documented in this encounter Visit Diagnoses Diagnosis Right knee pain Pain in joint, lower leg Acute medial meniscus tear of right knee, initial encounter documented in this encounter Care Teams Tower Supervisor Relationship Specialty Start Date End Date Sebastian Noguera Jr., MD PCP - General Family Practice 06/02/15 documented as of this encounter
--- OUTSIDE RECORDS SUMMARY | 2024-04-07 | XMS_ITS | Encounter Summary ---
Author Organization [employer] [facility] Address [address] [place] [address] Care Team Providers Care Stump Blower Name Role Phone Chuckie Chavira MD, Sebastian Archer Primary Care Provider [phone] [phone] Encounter Details Date Type Department Care Team (Latest Contact Info) Description 08/07/2018 12:25 PM CDT - 08/07/2018 11:59 PM CDT Hospital Encounter [facility] Laboratory Services [address] [facility] [address] [facility] [address] [place] [id number] [place] [address] [facility] [address] [address] Discharge Disposition: Home or Self [...] Procedure Name Priority Date/Time Associated Diagnosis Comments EXTRA TUBE Routine 08/07/2018 12:29 PM CDT Other specified hypothyroidism Type I diabetes mellitus with hyperosmolar coma EXTRA TUBE (URINE CONTAINER) Routine 08/07/2018 12:29 PM CDT Other specified hypothyroidism Type I diabetes mellitus with hyperosmolar coma MICROALBUMIN/CREATINI NE RATIO, RANDOM UR Routine 08/07/2018 12:29 PM CDT Other specified hypothyroidism Type I diabetes mellitus with hyperosmolar coma CBC WITH DIFFERENTIAL Routine 08/07/2018 12:29 PM CDT Other specified hypothyroidism Type I diabetes mellitus with hyperosmolar coma TSH Routine 08/07/2018 12:29 PM CDT Other specified hypothyroidism Type I diabetes mellitus with hyperosmolar coma T4 FREE Routine 08/07/2018 12:29 PM CDT Other specified hypothyroidism Type I diabetes mellitus with hyperosmolar coma VITAMIN B12 LEVEL Routine 08/07/2018 12: 29 PM CDT Other specified hypothyroidism Type I diabetes mellitus with hyperosmolar coma LIPID PANEL Routine 08/07/2018 12:29 PM CDT Other specified hypothyroidism Type I diabetes mellitus with hyperosmolar coma COMPREHENSIVE METABOLIC PANEL Routine 08/07/2018 12:29 PM CDT Other specified hypothyroidism Type I diabetes mellitus with hyperosmolar coma documented in this encounter Results * EXTRA TUBE (URINE CONTAINER) (08/07/2018 12:29 PM CDT) Urine URINE SPECIMEN OBTAINED BY CLEAN CATCH PROCEDURE / Unknown Collection / Unknown 08/07/2018 12:29 PM CDT 08/07/2018 12:29 PM CDT us K Eligio Ferro MD URINE ORDERABLES Final Result [id number] [place] [address] * VITAMIN B12 LEVEL (08/07/2018 12:29 PM CDT) VITAMIN B12 507 232-1,245 pg/mL 08/07/2018 2:46 PM CDT [facility] Blood Venipuncture / Unknown 08/07/2018 12:29 PM CDT 08/07/2018 12:29 PM CDT us K Eligio Ferro MD CHEMISTRY ORDERABLES Final Re sult [facility] CLIA# [id number] [place] [address] * MICROALBUMIN/CREATININE RATIO, RANDOM UR (08/07/2018 12:29 PM CDT) Pathologist [facility] MICROALBUMIN, URINE 3.9 mg/dL 08/07/2018 1:45 PM CDT [facility] CREATININE, URINE 238.2 40.0 - 278.0 mg/dL 08/07/2018 1:45 PM CDT [facility] Comment: Reference Range varies with fluid intake and diet. MICROALBUMIN/C REAT RATIO, UR 16.4 <17.0 mg/g 08/07/2018 1:45 PM CDT [facility] Urine URINE SPECIMEN OBTAINED BY CLEAN CATCH PROCEDURE / Unknown Collection / Unknown 08/07/2018 12:29 PM CDT 08/07/2018 12:29 PM CDT Narrative [facility] - 08/07/2018 1:45 PM CDT Condition ? Microalbumin/Creat ratio Normal Males ? <17 Normal Females ? <25 Microalbuminuria Males ?17-299 Microalbuminuria Females ?25-299 Overt proteinuria ? >=300 K Eligio Ferro MD URINE ORDERABLES Final Result [facility] CLIA# [id number] [place] [address] * (ABNORMAL) CBC WITH DIFFERENTIAL (08/07/2018 12:29 PM CDT) WBC 8.4 4.5 - 10.5 K/uL 08/07/2018 1:06 PM CDT [facility] RBC 5.35 4.50 - 5.40 M/uL 08/07/2018 1:06 PM CDT [facility] HEMOGLOBIN 16.1 13.6 - 16.5 g/dL 08/07/2018 1:06 PM CDT [facility] HEMATOCRIT 46.4 40.0 - 48.0 % 08/07/2018 1:06 PM CDT [facility] MCV 86.7 82.0 - 99.0 fL 08/07/2018 1:06 PM CDT [facility] MCH 30.1 27.8 - 34.5 pg 08/07/2018 1:06 PM CDT [facility] MCHC 34.7 32.5 - 35.5 g/dL 08/07/2018 1:06 PM CDT [facility] RDW 13.2 11.5 - 14.5 % 08/07/2018 1:06 PM CDT [facility] PLATELETS 216 160 - 420 K/uL 08/07/2018 1:06 PM CDT [facility] MPV 7.5(L) 8.7 - 12.7 fL 08/07/2018 1:06 PM CDT [facility] NEUTROPHILS 63 45 - 70 % 08/07/2018 1:06 PM CDT [facility] LYMPHOCYTES 27 16 - 45 % 08/07/2018 1:06 PM CDT [facility] MONOCYTES 7 3 - 13 % 08/07/2018 1:06 PM CDT [facility] EOSINOPHILS 3 0 - 7 % 08/07/2018 1:06 PM CDT [facility] BASOPHILS 1 0 - 2 % 08/07/2018 1:06 PM CDT [facility] IMMATURE GRANULOCYTES 1 0 - 5 % 08/07/2018 1:06 PM CDT [facility] NEUTROPHIL ABSOLUTE 5.30 1.90 - 7.00 K/uL 08/07/2018 1:06 PM CDT [facility] LYMPHOCYTE ABSOLUTE 2.20 K/uL 08/07/2018 1:06 PM CDT [facility] MONOCYTE ABSOLUTE 0.60 K/uL 019 1:06 PM CDT [facility] EOSINOPHIL ABSOLUTE 0.20 0.00 - 0.70 K/uL 08/07/2018 1:06 PM CDT [facility] BASOPHILS ABSOLUTE 0.10 K/uL 08/07/2018 1:06 PM CDT [facility] IMMATURE GRANULOCYTES ABSOLUTE 0.00 K/uL 08/07/2018 1:06 PM CDT [facility] Blood Venipuncture / Unknown 08/07/2018 12:29 PM CDT 08/07/2018 12:29 PM CDT us K Eligio Ferro MD HEMATOLOGY ORDERABLES Final R esult [facility] CLIA# [id number] [place] [address] * (ABNORMAL) COMPREHENSIVE METABOLIC PANEL (08/07/2018 12:29 PM CDT) SODIUM 137 136 - 145 mmol/L 08/07/2018 1:50 PM [facility] POTASSIUM 4.1 3.4 - 5.1 mmol/L 08/07/2018 1:50 PM [facility] CHLORIDE 101 98 - 107 mmol/L 08/07/2018 1:50 PM [facility] CO2 22 22 - 29 mmol/L 08/07/2018 1:50 PM [facility] CALCIUM 9.0 8.6 - 10.4 mg/dL 08/07/2018 1:50 PM [facility] BUN 15 6 - 20 mg/dL 08/07/2018 1:50 PM [facility] CREATININE 0.85 0.70 - 1.20 mg/dL 08/07/2018 1:50 PM [facility] GLUCOSE 265(H) 74 - 99 mg/dL 08/07/2018 1:50 PM [facility] TOTAL PROTEIN 7.4 6.3 - 8.7 g/dL 08/07/2018 1:50 PM [facility] ALBUMIN 4.0 3.5 - 5.2 g/dL 08/07/2018 1:50 PM [facility] BILIRUBIN TOTAL 0.4 0.2 - 1.3 mg/dL 08/07/2018 1:50 PM [facility] ALKALINE PHOSPHATASE 76 40 - 150 U/L 08/07/2018 1:50 PM [facility] AST 10 0 - 41 U/L 08/07/2018 1:50 PM [facility] ALT 7 0 - 41 U/L 08/07/2018 1:50 PM [facility] GFR >60 >=60 mL/min/1.7 3 sq meter 08/07/2018 1:50 PM [facility] Comment: eGFR has not been validated [...] GFR, >60 >=60 mL/min/1.7 3 sq meter 08/07/2018 1:50 PM CDT [facility] ANION GAP 14 8 - 16 mmol/L 08/07/2018 1:50 PM CDT [facility] Blood Venipuncture / Unknown 08/07/2018 12:29 PM CDT 08/07/2018 12:29 PM CDT Partha Ferro MD CHEMISTRY ORDERABLES Final Re sult Performing Organization Address City/[facility]/ZIP Co de Phone Number [facility] CLIA# [id number] [place] [address] * (ABNORMAL) TSH (08/07/2018 12:29 PM CDT) TSH 18.75(H) 0.27 - 4.20 uIU/mL 08/07/2018 1:56 PM CDT [facility] Blood Venipuncture / Unknown 08/07/2018 12:29 PM CDT 08/07/2018 12:29 PM CDT Partha Ferro MD CHEMISTRY ORDERABLES Final Re sult Performing Organization Address City/[facility]/ZIP Co de Phone Number [facility] CLIA# [id number] [place] [address] * (ABNORMAL) LIPID PANEL (08/07/2018 12:29 PM CDT) CHOLESTEROL 192 <200 mg/dL 08/07/2018 1:50 PM CDT [facility] TRIGLYCERIDE 157(H) <150 mg/dL 08/07/2018 1:50 PM CDT [facility] HDL 40(L) >57 mg/dL 08/07/2018 1:50 PM CDT [facility] LDL CALCULATED 121(H) <100 mg/dL 08/07/2018 1:50 PM CDT [facility] NON-HDL CHOLESTEROL 152(H) <130 mg/dL 08/07/2018 1:50 PM CDT [facility] Blood Venipuncture / Unknown 08/07/2018 12:29 PM CDT 08/07/2018 12:29 PM CDT Narrative [facility] - 08/07/2018 1:50 PM CDT TOTAL CHOLESTEROL ??mg/dL ??Desirable <200 ??Borderline high 200-239 ??High >=240 TRIGLYCERIDES ??mg/dL ??Normal <150 ??Borderline high 150-199 ??High 200-499 ??Very high >=500 HDL CHOLESTEROL ??mg/dL ??Low <40 ??Normal 40-59 ??Desirable >=60 NON HDL CHOLESTEROL mg/dL ??Optimal <130 ??Near Optimal 130-159 ??Borderline High 160-189 ??Very High >=190 Calculated LDL mg/dL ??Optimal <100 ??Near Optimal 100-129 ??Borderline High 130-159 ??High 160-189 ??Very High >=190 ATPIII Guidelines Reference Ranges for Lipid Panels (NCEP/AMA) K Eligio Ferro MD CHEMISTRY ORDERABLES Final Re sult [facility] CLIA# [id number] [place] [address] * (ABNORMAL) T4 FREE (08/07/2018 12:29 PM CDT) T4 FREE 0.85(L) 0.93 - 1.70 ng/dL 08/07/2018 1:56 PM CDT [facility] Blood Venipuncture / Unknown 08/07/2018 12:29 PM CDT 08/07/2018 12:29 PM CDT K Eligio Ferro MD CHEMISTRY ORDERABLES Final Re sult [facility] CLIA# [id number] [place] [address] documented in this encounter Visit Diagnoses Diagnosis Other specified hypothyroidism- Primary Type I diabetes mellitus with hyperosmolar coma Type I (juvenile type) diabetes mellitus with hyperosmolarity, not stated as uncontrolled documented in this encounter Care Teams Stump Blower Relationship Specialty Start Date End Date Sebastian Noguera Jr., MD PCP - General Family Practice 06/02/15 documented as of this encounter
--- OUTSIDE RECORDS SUMMARY | 2024-04-07 | XMS_ITS | Encounter Summary ---
Author Organization [facility] Address [address] [place] [address] Care Team Providers Care Restaurant Floor Manager Name Role Phone Chuckie Chavira MD, Sebastian Archer Primary Care Provider [phone] Reason for Visit * Outpatient Services (Routine) - Closed Specialty Diagnoses / Procedures Referred By Bernardino t Referred To Contact Radiology Diagnoses . Procedures XR LOWER EXTREMITY Addison Sanchez Jr., DO [facility] [address] [address] Phone: tel: fax: Referral ID Status Reason Start Date Expiration Date Visits Re quested Visits Authorized [id number] Closed 06/02/2015 07/02/2016 1 1 Encounter Details Date Type Department Care Team (Latest Contact Info) Description 06/02/2015 3:40 PM CDT - 06/02/2015 11:59 PM CDT Hospital Encounter [facility] Imaging [address] [place] [address] Addison Sanchez Jr., DO NO ADDRESS [...] this encounter Medications at Time of Discharge NOVOLOG FLEXPEN 100 unit/mL Insulin Pen Inject by subcutaneous injection 8 units AM, 7 units at lunch, 8 units with supper, plus sliding scale. 04/02/2015 insulin aspart protamine-insuli n aspart (NOVOLOG MIX 70/30) 100 unit/mL (70-30) Insulin Pen Inject 50 Units by subcutaneous injection. 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 6 documented as of this encounter Plan of Treatment Not on file documented as of this encounter Procedures Procedure Name Priority Date/Time Associated Diagnosis Comments XR KNEE 4+ VW RIGHT Routine 06/02/2015 3 :53 PM CDT Right knee pain documented in this encounter Results * XR KNEE 4+ VW RIGHT (06/02/2015 3:53 PM CDT) Anatomical Region Laterality Modality Lower Extremity Computed Radiogr aphy 06/02/2015 3:53 PM CDT Impressions 06/02/2015 4:05 PM CDT IMPRESSION: 1. Tricompartmental osteoarthritic changes. 2. Small joint effusion. Narrative 06/02/2015 4:05 PM CDT XR KNEE 4+ VW RIGHT DATE: 06/02/2015 3:53 PM HISTORY: Right knee pain TECHNIQUE: ??Four views right knee COMPARISON: None FINDINGS: No acute fracture identified. Small joint effusion visualized. Tricompartmental osteoarthritic changes are identified greatest within the medial and lateral compartments. Demineralization of the osseous structures. Procedure Note Danny King MD - 06/02/2015 XR KNEE 4+ VW RIGHT DATE: 06/02/2015 3:53 PM HISTORY: Right knee pain TECHNIQUE: Four views right knee COMPARISON: None FINDINGS: No acute fracture identified. Small joint effusion visualized. Tricompartmental osteoarthritic changes are identified greatest within the medial and lateral compartments. Demineralization of the osseous structures. IMPRESSION IMPRESSION: 1. Tricompartmental osteoarthritic changes. 2. Small joint effusion. us Addison Sanchez Jr., DO DIAGNOSTIC IMAGING ORDERA BLES Final Result documented in this encounter Visit Diagnoses Diagnosis Right knee pain Pain in joint, lower leg documented in this encounter Care Teams Restaurant Floor Manager Relationship Specialty Start Date End Date Sebastian Noguera Jr. MD PCP - General Family Practice 06/02/15 documented as of this encounter
--- OUTSIDE RECORDS SUMMARY | 2024-04-07 | XMS_ITS | Encounter Summary ---
Author Organization [facility] Address [address] [place] [address] Care Team Providers Care Supervisor Cook House Name Role Phone Chuckie Chavira MD, Sebastian Archer Primary Care Provider [phone] Encounter Details Date Type Department Care Team (Latest Contact Info) Description 08/30/2019 9:07 AM CDT - 08/30/2019 11:59 PM CDT Hospital Encounter [facility] Imaging Services [facility] [address] [place] [address] [place] [address] [facility] [address] [address] Discharge Disposition: Home or Self [...] have Coronavirus / COVID-19? No / Unsure 08/30/2019 9:05 AM CDT documented as of this encounter Medications [...] Procedure Name Priority Date/Time Associated Diagnosis Comments MICROALBUMIN/CREATINI NE RATIO, RANDOM UR Routine 08/30/2019 9:10 AM CDT Type I diabetes mellitus with hyperosmolar coma CBC WITH DIFFERENTIAL Routine 08/30/2019 9:09 AM CDT Type I diabetes mellitus with hyperosmolar coma TSH Routine 08/30/2019 9:09 AM CDT Other specified hypothyroidism T4 FREE Routine 08/30/2019 9:09 AM CDT Other specified hypothyroidism LIPID PANEL Routine 08/30/2019 9:09 AM CDT Type I diabetes mellitus with hyperosmolar coma COMPREHENSIVE METABOLIC PANEL Routine 08/30/2019 9:09 AM CDT Type I diabetes mellitus with hyperosmolar coma documented in this encounter Results * (ABNORMAL) MICROALBUMIN/CREATININE RATIO, RANDOM UR (08/30/2019 9:10 AM CDT) MICROALBUMIN, URINE 4.9 mg/dL 08/30/2019 11:50 AM T [facility] [employer] [facility] CREATININE, URINE 221.0 40.0 - 278.0 mg/dL 08/30/2019 11:50 AM T [facility] [employer] [facility] Comment:Reference Range vari es with fluid intake and diet. MICROALBUMIN/C REAT RATIO, UR 22.2(H) <17.0 mg/g 08/30/2019 11:50 AM T [facility] Urine URINE SPECIMEN OBTAINED BY CLEAN CATCH PROCEDURE / Unknown Collection / Unknown 08/30/2019 9:10 AM CDT 08/30/2019 9:10 AM CDT Narrative [facility] - 08/30/2019 11:50 AM CDT Condition ? Microalbumin/Creat ratio Normal Males ? <17 Normal Females ? <25 Microalbuminuria Males ?17-299 Microalbuminuria Females ?25-299 Overt proteinuria ? >=300 K Eligio Ferro MD URINE ORDERABLES Final Result Performing Organization Address [facility] Co de Phone Number [facility]# [id number] [place] [address] * T4 FREE (08/30/2019 9:09 AM CDT) [facility] T4 FREE 1.09 0.93 - 1.70 ng/dL 08/30/2019 11:39 AM CDT [facility] Blood Venipuncture / Unknown 08/30/2019 9:09 AM CDT 08/30/2019 9:10 AM CDT Partha Ferro MD CHEMISTRY ORDERABLES Final Re sult Performing Organization Address [facility] de Phone Number [facility]# [id number] [place] [address] * (ABNORMAL) TSH (08/30/2019 9:09 AM CDT) [facility] TSH 5.88(H) 0.27 - 4.20 uIU/mL 08/30/2019 11:39 AM CDT [facility] Blood Venipuncture / Unknown 08/30/2019 9:09 AM CDT 08/30/2019 9:10 AM CDT K Eligio Ferro MD CHEMISTRY ORDERABLES Final Re sult [facility] CLIA# [id number] [place] [address] * (ABNORMAL) COMPREHENSIVE METABOLIC PANEL (08/30/2019 9:09 AM CDT) SODIUM 137 136 - 145 mmol/L 08/30/2019 11:39 AM CDT [facility] POTASSIUM 3.7 3.4 - 5.1 mmol/L 08/30/2019 11:39 AM T [facility] CHLORIDE 102 98 - 107 mmol/L 08/30/2019 11:39 AM CDT [facility] [employer] [facility] CO2 24 22 - 29 mmol/L 08/30/2019 11:39 AM CDT [facility] CALCIUM 9.0 8.6 - 10.4 mg/dL 08/30/2019 11:39 AM CDT [facility] BUN 15 6 - 20 mg/dL 08/30/2019 11:39 AM T [facility] CREATININE 0.74 0.67 - 1.17 mg/dL 08/30/2019 11:39 AM T [facility] GLUCOSE 125(H) 74 - 99 mg/dL 08/30/2019 11:39 AM CDT [facility] TOTAL PROTEIN 6.8 6.3 - 8.7 g/dL 08/30/2019 11:39 AM CDT [facility] ALBUMIN 4.1 3.5 - 5.2 g/dL 08/30/2019 11:39 AM CDT [facility] [employer] [facility] BILIRUBIN TOTAL 0.2 0.2 - 1.3 mg/dL 08/30/2019 11:39 AM CDT [facility] [employer] [facility] ALKALINE PHOSPHATASE 58 40 - 150 U/L 08/30/2019 11:39 AM CDT [facility] AST 24 0 - 41 U/L 08/30/2019 11:39 AM CDT [facility] ALT 23 0 - 41 U/L 08/30/2019 11:39 AM CDT [facility] GFR >60 >=60 mL/min/1.7 3 sq meter 08/30/2019 11:39 AM CDT [facility] Comment: eGFR has not been validated for [...] GFR, >60 >=60 mL/min/1.7 3 sq meter 08/30/2019 11:39 AM CDT [facility] ANION GAP 11 8 - 16 mmol/L 08/30/2019 11:39 AM T [facility] Blood Venipuncture / Unknown 08/30/2019 9:09 AM CDT 08/30/2019 9:10 AM CDT K Eligio Ferro MD CHEMISTRY ORDERABLES Final Re sult [facility] CLIA# [id number] [place] [address] * (ABNORMAL) CBC WITH DIFFERENTIAL (08/30/2019 9:09 AM CDT) WBC 8.4 4.5 - 10.5 K/uL 08/30/2019 11:07 AM CDT [facility] RBC 4.41(L) 4.50 - 5.40 M/uL 08/30/2019 11:07 AM T [facility] HEMOGLOBIN 13.1(L) 13.6 - 16.5 g/dL 08/30/2019 11:07 AM CDT [facility] HEMATOCRIT 38.4(L) 40.0 - 48.0 % 08/30/2019 11:07 AM CDT [facility] MCV 87.0 82.0 - 99.0 fL 08/30/2019 11:07 AM CDT [facility] MCH 29.7 27.8 - 34.5 pg 08/30/2019 11:07 AM CDT [facility] MCHC 34.1 32.5 - 35.5 g/dL 08/30/2019 11:07 AM CDT [facility] RDW 13.2 11.5 - 14.5 % 08/30/2019 11:07 AM CDT [facility] PLATELETS 254 160 - 420 K/uL 08/30/2019 11:07 AM CDT [facility] MPV 7.8(L) 8.7 - 12.7 fL 08/30/2019 11:07 AM CDT [facility] NEUTROPHILS 64 45 - 70 % 08/30/2019 11:07 AM CDT [facility] LYMPHOCYTES 23 16 - 45 % 08/30/2019 11:07 AM CDT [facility] MONOCYTES 7 3 - 13 % 08/30/2019 11:07 AM CDT [facility] EOSINOPHILS 4 0 - 7 % 08/30/2019 11:07 AM CDT [facility] BASOPHILS 1 0 - 2 % 08/30/2019 11:07 AM CDT [facility] NEUTROPHIL ABSOLUTE 5.40 1.90 - 7.00 K/uL 08/30/2019 11:07 AM CDT [facility] LYMPHOCYTE ABSOLUTE 2.00 0.70 - 4.50 K/uL 08/30/2019 11:07 AM CDT [facility] MONOCYTE ABSOLUTE 0.60 0.10 - 1.30 K/uL 08/30/2019 11:07 AM CDT [facility] EOSINOPHIL ABSOLUTE 0.40 0.00 - 0.70 K/uL 08/30/2019 11:07 AM CDT [facility] [employer] [facility] BASOPHILS ABSOLUTE 0.10 0.00 - 0.20 K/uL 08/30/2019 11:07 AM CDT [facility] Blood Venipuncture / Unknown 08/30/2019 9:09 AM CDT 08/30/2019 9:10 AM CDT K Eligio Ferro MD HEMATOLOGY ORDERABLES Final R esult [facility] CLIA# [id number] [place] [address] * LIPID PANEL (08/30/2019 9:09 AM CDT) CHOLESTEROL 153 <200 mg/dL 08/30/2019 11:39 AM CDT [facility] [employer] [facility] TRIGLYCERIDE 139 <150 mg/dL 08/30/2019 11:39 AM CDT [facility] [employer] [facility] HDL 45 40 - 59 mg/dL 08/30/2019 11:39 AM CDT [facility] [employer] [employer] [facility] LDL CALCULATED 80 <100 mg/dL 08/30/2019 11:39 AM CDT [facility] NON-HDL CHOLESTEROL 108 <130 mg/dL 08/30/2019 11:39 AM CDT [facility] [employer] [employer] [facility] Blood Venipuncture / Unknown 08/30/2019 9:09 AM CDT 08/30/2019 9:10 AM CDT Narrative [facility] [employer] [employer] [facility] - 08/30/2019 11:39 AM CDT TOTAL CHOLESTEROL [...] Reference Ranges for Lipid Panels (NCEP/AMA) . us K Eligio Ferro MD CHEMISTRY ORDERABLES Final Re sult [id number] [address] [place] [address] documented in this encounter Visit Diagnoses Diagnosis Type I diabetes mellitus with hyperosmolar coma- Primary Type I (juvenile type) diabetes mellitus with hyperosmolarity, not stated as uncontrolled Other specified hypothyroidism documented in this encounter Care Teams Supervisor Cook House Relationship Specialty Start Date End Date Sebastian Noguera Jr., MD PCP - General Family Practice 06/02/15 documented as of this encounter
--- OUTSIDE RECORDS SUMMARY | 2024-04-07 | XMS_ITS | Encounter Summary ---
Author Organization [facility] Address [address] [place] [address] Care Team Providers Care Jumbo Operator Name Role Phone Chuckie Chavira MD, Sebastian Archer Primary Care Provider [phone] Reason for Referral * Outpatient Services (Routine) - Closed Specialty Diagnoses / Procedures Referred By Contac t Referred To Contact Diagnoses Right knee pain Acute medial meniscus tear of right knee, initial encounter Procedures MRI KNEE WO CONTRAST RIGHT Addison Sanchez Jr., DO Referral ID Status Reason Start Date Expiration Date V isits Requested Visits Authorized [id number] Closed ST[facility] CTS 06/04/2015 07/19/2015 1 1 Reason for Visit * Reason Comments Knee Pain right knee pain/ pat ient cannot bend, put all weight on knee. Encounter Details Date Type Department Care Team (Late st Contact Info) Description 06/02/2015 3:45 PM CDT Office Visit [facility] Orthopedic Surgery - [address] [facility] [place] [place] [address] Addison Sanchez Jr., DO NO ADDRESS ON FILE Right knee pain (Primary Dx); Acute medial meniscus tear of right knee, initial encounter Social History Tobacco Use Types Packs/Day [...] Sign Reading Time Taken Comments Blood Pressure 150/78 06/02/2015 3:26 PM CDT Pulse 72 06/02/2015 3:26 PM CDT Temperature - - Respiratory Rate - - Oxygen Saturation - - Inhaled Oxygen Concentration - - Weight 130.6 kg (288 lb) 06/02/2015 3:26 PM CDT Height 195.6 cm (6' 5 ) 06/02/2015 3:26 PM CDT Body Mass Index 34.15 06/02/2015 3:26 PM CDT documented in this encounter Progress Notes * Addison Sanchez Jr. 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 ?? Duration: Couple months ?? Causation: falling injury ?? Pain Location: right knee ?? Quality: Aching ?? Modifying Factors: locking/giving away ?? Associated Symptoms: edema ?? Treatment So Far: OTC advil Past Medical History Diagnosis Date ??? Diabetes ??? Thyroid disease hypothyroidism Past Surgical History Procedure Laterality Date ??? Pt denies relevant surgical history History Social History ??? Marital Status: Spouse Name: N/A Number of Children: N/A ??? Years of Education: N/A Occupational History ??? Not on file. Social History Main Topics ??? Smoking status: Never Smoker ??? Smokeless tobacco: Not on file ??? Alcohol Use: No ??? Drug Use: No ??? Sexual Activity: Not on file Other Topics Concern ??? Not on file Social History Narrative ??? No narrative on file Family History Problem Relation Age of Onset ??? Cancer Father pancreat ??? Parkinson's Disease Father ??? Cancer Mother Pancreat No Known Allergies No current outpatient prescriptions on file. No current facility-administered medications for this visit. [...] pain. No bloody stools. No acidreflux. Musculoskeletal: +muscle cramps. +joint pain (right knee). +back pain. No neck pain. Skin: No rash. No itching. No suspicious lesions. Breasts: No lumps or masses. No nipple discharge. No tenderness. Psychological: No depression. No anxiety. No bipolar. PHYSICAL EXAMINATION Chief Complaint Patient presents with ??? Knee Pain right knee pain/ patient cannot bend, put all weight on knee. BP 150/78 mmHg Pulse 72 Ht 6' 5 (1.956 m) Wt 130.636 [...] be compatible with a possible nondisplaced fracture. Flippin view shows irregularity of the medial facet [...] the patella and the medial femoral condyle. IMPRESSIO Possible meniscal tear, right Possible subacute patella fracture, right knee PLAN X-rays were ordered and independently visualized by me today. MRI right knee ordered today Strongly advised follow up with his PCP and endocrinology Discontinue Ibuprofen He may take the OTC dose of Tylenol for pain Advised activity modification to prevent added pain Follow up after above imaging This note has been prepared by Arturo Alberto Occupational Hygienist, for Addison Sanchez DO on 06/02/2015 at 3:31 PM. The scribe's documentation has been prepared under my direction and personally reviewed by me in its entirety. I confirm that the note above accurately reflects all work, treatment, procedures, and medical decision making performed by me, on 06/02/2015 at 4:09 PM -- Addison Sanchez DO documented in this encounter Miscellaneous Notes * Addendum Note - Anna Guerrero RMA - 06/03/2015 10:40 AM CDTAddended by: ANNA GUERRERO on: 06/03/2015 10:40 AM Modules accepted: Orders, Medications documented in this encounter Plan of Treatment Not on file documented as of this encounter Results * MRI KNEE WO [...] lateral meniscus as described. Small joint effusion. Addison Sanchez Jr., DO MR ORDERABLES Final Res ult * XR KNEE 4+ VW RIGHT (06/02/2015 [...] Tricompartmental osteoarthritic changes. 2. Small joint effusion. Addison Sanchez Jr., DO DIAGNOSTIC IMAGING ORDERA BLES Final Result documented in this encounter Visit Diagnoses Diagnosis Right knee pain- Primary Pain in joint, lower leg Acute medial meniscus tear of right knee, initial encounter Right knee pain Pain in joint, lower leg Right knee pain Pain in joint, lower leg Acute medial meniscus tear of right knee, initial encounter documented in this encounter Care Teams Jumbo Operator Relationship Specialty Start Date End Date Sebastian Noguera Jr., MD PCP - General Family Practice 06/02/15 documented as of this encounter
--- OUTSIDE RECORDS SUMMARY | 2024-04-07 | XMS_ITS | Encounter Summary ---
Author Organization [facility] Address [address] [place] [address] Care Team Providers Care Power Technician Name Role Phone Chuckie Chavira MD, Sebastian Archer Primary Care Provider [phone] Reason for Visit * Auth/Cert (Routine) Specialty Diagnoses / Procedures Referred By Contac t Referred To Contact Diagnoses Other tear of medial meniscus, current injury, right knee, subsequent encounter Procedures SC ARTHRS KNE SURG W/MENISCECTOMY MED/LAT W/SHVG Arthroscopy of right knee with medial meniscectomy. Further surgery as needed. Referral ID Status Reason Start Date Expiration Date Visits Re quested Visits Authorized [id number] 06/10/2015 07/10/2016 1 1 Encounter Details Date Type Department Care Team (Latest Contact Info) Description 06/22/2015 5:45 AM CDT - 06/22/2015 1:37 PM CDT Hospital Encounter [facility] [address] [address] Addison Sanchez Jr., DO NO ADDRESS ON FILE Acute medial meniscus tear of right knee, subsequent encounter Discharge Disposition: Home or Self Care Social [...] Sign Reading Time Taken Comments Blood Pressure 120/74 06/22/2015 1:00 PM CDT Pulse 74 06/22/2015 1:00 PM CDT Temperature 36.2 ??C (97.2 ??F) 06/22/2015 11:00 AM C DT Respiratory Rate 22 06/22/2015 12:04 PM CDT Oxygen Saturation 96% 06/22/2015 1:00 PM CDT Inhaled Oxygen Concentration - - [...] through Care Everywhere. 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 PROCEDURE PERFORMED: Right knee: Arthroscopic partial medial menisectomy and subtotal lateral menisci, tricompartmental shaving PRIMARY SURGEON: Yan Sanchez Jr., DO Surgical Staff: Felt Puller: Patria Carvajal RN; Katiana Lau RN Scrub: [...] pain/comfort utilizing verbal/nonverbal pain scales; assess culturalor orthodox indicators attached to pain; administer pain medications as prescribed; utilize non-pharmacologic pain control and comfort measures Expected Outcome: Patient demonstrates and reports adequate pain control Outcome Met: YES * Care Plan - Carissa Henriquez RN - 06/22/2015 12:03 PM CDT Potential for pain related to surgical/procedural intervention Interventions: Assess level of pain/comfort utilizing verbal/nonverbal pain scales; assess culturalor orthodox indicators attached to pain; administer pain medications [...] of right knee, subsequent encounter Case Notes [id number] POC GLUCOSE Routine 06/22/2015 7:49 AM CDT EDUCATION KNEE ARTHROSCOPY Routine 06/17/2015 1:59 PM CDT Acute medial meniscus tear of right knee, subsequent encounter documented in this encounter Results * (ABNORMAL) POC GLUCOSE (06/22/2015 7:49 AM CDT) GLUCOSE POC 172(H) 65 - 99 mg/dL 06/22/2015 8:00 AM CDT [facility] Whole blood specimen (specimen) 06/22/2015 7:49 AM CDT 06/22/2015 8:00 AM CDT Addison Sanchez Jr., DO POINT OF CARE TESTING Fin al Result Performing Organization Address [facility] Co de Phone Number [facility] CLIA # [id number] [address] [place] [address] * EDUCATION KNEE ARTHROSCOPY - JOSEPH (06/17/2015 1:59 PM CDT) Education Name KNEE ARTHROSCOPY JOSEPH EDUCATION INTERFACE Education URL [email or web address] JOSEPH EDUCATION INTERFACE EDUCATION ACCESS CODE [id number] JOSEPH EDUCATION INTERFACE EDUCATION ISSUE DATE Jun [...] DO EXTERNAL EDUCATION ORDERA BLES Final Result Performing Organization Address [facility] Co de Phone Number JOSEPH EDUCATION INTERFACE documented in this encounter Visit Diagnoses Diagnosis Acute medial meniscus tear of right knee, subsequent encounter- Primary Acute medial meniscus tear of right knee, initial encounter documented in this encounter Administered Medications [...] at 125 mL/hr, PRE-PROCEDURE CONTINUOUS, Starting on e 06/22/15 at 0600, Until 06/22/15 at 1537, Routine, Pre-opIndications:Acut e medial meniscus tear of right knee, initial encounter New Bag 06/22/2015 11:13 AM CDT 125 mL/hr New Bag 06/22/2015 7:53 AM CDT 125 mL/hr documented in this encounter Active and Recently Administered Medications Times are shown in CDT. Scheduled Medication Order 06/20/2015 06/21/2015 06/22/2015 ceFAZolin (ANCEF) IVPB 2,000 mg (COMPLETED) 2,000 mg, IV, PRE-PROCEDURE ONCE, 1 dose, Starting on e 06/22/15 at 0553, Until Sun06/22/15 at 0943, Routine, Pre-op, Antibiotic Indication: Surgical prophylaxis 0943 (Given - Provid er: Delonte Hsu CRNA) enoxaparin (LOVENOX) injection 40 mg (COMPLETED) 40 mg, subCUT, ONE TIME ONLY, 1 dose, On e 06/22/15 at 1100, Routine, PACU 1131 (Given - Provid er: Carissa Henriquez RN) famotidine (PEPCID) tablet 20 mg (COMPLETED) 20 mg, Oral, PRE-PROCEDURE ONCE, 1 dose, Starting on Sun06/22/15 at 0553, Until e 06/22/15 at 0753, Routine, Pre-op 0753 (Given - Provid er: Ally Hdez RN) Continuous Medication Order 06/20/2015 06/21/2015 06/22/2015 lactated ringers solution (CANCELED) IV, at 125 mL/hr, PRE-PROCEDURE CONTINUOUS, Starting on 06/22/15 at 0600, Until 06/22/15 at 1537, Routine, Pre-op 0753 (New Bag - Prov ider: Ally Hdez RN)0944 (Fluid Volume - Provider: Delonte Hsu CRNA)1113 (New Bag - Provider: Carissa Henriquez, RN)1243 (Stopped - Provider: Michelle Martin, ROYER) PRN Medication Order 06/20/2015 06/21/2015 06/22/2015 sodium chloride 0.9 % irrigation irrigation (CANCELED) INTRA-PROCEDURE PRN, Starting on 06/22/15 at 1036, Until 06/22/15 at 1057, Routine, Intra-op 1036 (Given - Provid er: Addison Sanchez Jr., DO) documented in this encounter Care Teams Power Technician Relationship Specialty Start Date End Date Sebastian Noguera Jr., MD PCP - General Family Practice 06/02/15 documented as of this encounter
--- OUTSIDE RECORDS SUMMARY | 2024-04-07 | XMS_ITS | Encounter Summary ---
Author Organization [facility] Address [address] [place] [address] Care Team Providers Care Fine Arts Teacher Name Role Phone Chuckie Chavira MD, Sebastian Archer Primary Care Provider [phone] Encounter Details Date Type Department Care Team (Late st Contact Info) Description 06/10/2015 Orders Only [facility] Orthopedic Surgery - [address], [address] [place] [address] Addison Sanchez Jr., DO NO ADDRESS ON FILE Acute medial meniscus tear of right knee, subsequent encounter (Primary Dx) Social History Tobacco Use Types [...] tear of right knee, subsequent encounter- Primary documented in this encounter Care Teams Fine Arts Teacher Relationship Specialty Start Date End Date Sebastian Noguera Jr., MD PCP - General Family Practice 06/02/15 documented as of this encounter
--- OUTSIDE RECORDS SUMMARY | 2024-04-07 | XMS_ITS | Encounter Summary ---
Author Organization [facility] Address [address] Attn: Epic Prelude ADT [place] [address] Care Team Providers Care Nail Making Machine Setter Name Role Phone Chuckie Chavira MD, Sebastian Archer Primary Care Provider [phone] Encounter Details Date Type Department Care Team (Latest Contact Info) Description 08/30/2019 Travel Social History Tobacco Use Types Packs/Day [...] on filedocumented in this encounter Care Teams Nail Making Machine Setter Relationship Specialty Start Date End Date Sebastian Noguera Jr., MD PCP - General Family Practice 06/02/15 documented as of this encounter
--- OUTSIDE RECORDS SUMMARY | 2024-04-07 00:01 | XMS_ITS | Continuity of Care Document ---
Author Organization [employer] Address [address] [place] [address] Phone Care Team Providers Care Senior Operations Manager Name Role Phone Sebastian Noguera MD Unavailable Unavailable Allergies, Adverse Reactions, Alerts Substance Reaction Status Criticality No Known Allergies Active No Inform ation Medications Medication Instructions Dosage Effective Dates (start - stop) Status Comments escitalopram 10 mg tablet take 1 tablet by oral route every day 10 MG - Active sildenafil 50 mg tablet take 1 tablet by oral route every day as needed approximately 1 hour before sexual activity 50 MG - Active Humulin N NPH U-100 Insulin KwikPen 100 unit/mL (3 mL) subcutaneous inject 40 units by subcutaneous route per prescriber's instructions. Insulin dosing requires individualization. - Active Synthroid 25 mcg tablet take 1 tablet by oral route every day 25 MCG - Active lisinopril 20 mg tablet take 1 tablet by oral route every day 20 MG - Active ergocalciferol (vitamin D2) 1,250 mcg (50,000 unit) capsule take 1 capsule by oral route every week 91117 UNITS - Active Humalog Mix 50-50 KwikPen U-100 Insulin 100 unit/mL subcutaneous pen inject 40units by subcutaneous route per prescriber's instructions. Insulin dosing requires individualization. - Active Vitamin B-6 100 mg tablet TAKE 1 TAB DAILy - Active Vitamin B-12 1,000 mcg tablet TAKE 1 tab - Active Centrum Silver 0.4 mg-300 mcg-250 mcg tablet - Active aspirin 325 mg tablet take 1 tablet by oral route every day 325 MG - Active acetaminophen 500 mg capsule take 2 capsule by oral route every 6 hours as needed 1000 MG - Active Procedures Procedure Date Clin depression screen doc FALL RISK ASSESSMENT DOC'D PRES/ABSN URINE INCON ASSESS PPPS, initial visit SYST BP GE 130 - 139MM HG DIAST BP 80-89 MM HG OFFICE [id number] SYST BP LT 130 MM HG DIAST BP 80-89 MM HG PSA, TOTAL ROUTINE VENIPUNCTURE OFFICE [id number] FALL RISK ASSESSMENT DOC'D PRES/ABSN URINE INCON ASSESS Pt inelig neg scrn depres OFFICE [id number]-[id number] BODY MASS INDEX DOCD SYST BP >= 140 MM HG6 IT DIAST BP 80-89 MM HG PSA, TOTAL ROUTINE VENIPUNCTURE OFFICE [id number] OFFICE [id number]-VZF-[id number] BODY MASS INDEX DOCD SYST BP GE 130 - 139MM HG DIAST BP < 80 MM HG OFFICE [id number]-[id number]-[id number] INJECTION, GARAMYCIN, GENTAMICIN, UP TO 80MG THERAPEUTIC, PROPHYLACTIC OR DIAG INJ IN TRA-MUSCLR/SQ ROCEPHIN INJ UP TO 250MG THERAPEUTIC, PROPHYLACTIC OR DIAG INJ IN TRA-MUSCLR/SQ US, TRANSRECTAL ULTRASONIC GUIDANCE NEEDLE BIOPSY, IMG A ND INTRP BIOPSY OF PROSTATE PSA, TOTAL ROUTINE VENIPUNCTURE URINALYSIS, DIPSTICK (UA) - Office Lab M OFFICE [id number] FALL RISK ASSESSMENT DOC'D PRES/ABSN URINE INCON ASSESS Pt inelig neg scrn depres OFFICE [id number]-MUV-[id number] BODY MASS INDEX DOCD SYST BP >= 140 MM HG6 IT DIAST BP 80-89 MM HG OFFICE BMHMH-SRD-BKDJ-MED BODY MASS INDEX DOCD SYST BP >= 140 MM HG6 IT DIAST BP 80-89 MM HG Advance Directives Directive Yes / No Effective Date File Name Life Support Not Answered N/A N/A Intubation Not Answered N/A N/A Antibiotics Not Answered N/A N/A IV Fluid Support Not Answered N/A N/A Tube Feed Not Answered N/A N/A Other Directive N/A N/A WARNING:The information contained in this section is historical and is provided for information only and does not constitute a legal document or any assurance that the information is still accurate. Please verify the information with the salazar of the legal document before using it for clinical purposes. Encounters Encounter Description Practice Location Reason(s) For Visit Diagnoses Date Provider Providers Copied on Encounter [facility], [address], [place], [place], [id number] , tel: [phone] [facility] No Information 4 Chuckie Cortes. [address], [id number] , [place]. tel: [phone] [facility], [address], [place], [place], [address] , [place] tel: [phone] [facility] Rising PSA level 3 Michelle Ingram. [address] Kae Ortega, [facility], [place] [address], [place], [address], [place]. tel: [phone] [facility], [address], [place], [place], [address] , [place] tel: [phone] [facility] Patient encounter (chief complaint)Me dicare preventive (chief complaint) Body mass index [BMI] 33.0-33.9, adultMorbid (severe) obesity due to excess caloriesEssential (primary) hypertensionDiabe tic polyneuropathy associated with type 2 diabetes mellitusErectile dysfunction, unspecified erectile dysfunction typeMedicare annual wellness visit, initialMild major depression 3 Chuckieshashi Cortes. [address] [place] [address], [address], [id number] , . tel: [phone] Referring Provider: Sebastian Archer, [address] [place] [address], [address] . tel:[phone] OFFICE MORLR-TND-LZ TAILED [facility], [address], [place], [place], [address] , tel: [phone] [facility] Patient encounter (chief complaint) Body mass index [BMI] 39.0-39.9, adultDiabetic polyneuropathy associated with type 2 diabetes mellitusEssential (primary) hypertensionMorbi d (severe) obesity due to excess caloriesRising PSA level 2 Chuckie Sebastian. [address] [place] [address], [address], [id number] , . tel: [phone] Referring Provider: Sebastian Archer, [address] [place] [address], [address] . tel:[phone] [facility], [address], [place], [place], [address] , tel: [phone] [facility] Rising PSA level 2 [address]gram[address], [place] [address], [place], [address], [place]. tel: [phone] Referring Provider: Haily Morales Dr [place] [address], [place], [address]. tel:[phone] OFFICE QPAVC-EMI-UX PANDED [facility], [address], [place], [place], [address] , tel: [phone] [facility] Rising PSA levelErectile dysfunction, unspecified erectile dysfunction type Sep-2 2 Michelle Ingram. [address] Kae Ortega, [facility], [place] [address], [place], [address], . tel: [phone] Referring Provider: Sebastian Archer, [address] [place] [address], [address] . tel:[phone] OFFICE PAEOK-VMS-IA TAILED [facility], [address], [place], [place], [address] , tel: [phone] [facility] 6 Month (chief complaint) Body mass index [BMI] 40.0-44.9, adultMorbid (severe) obesity due to excess caloriesEssential (primary) hypertensionDiabe tic polyneuropathy associated with type 2 diabetes mellitusErectile dysfunction, unspecified erectile dysfunction typeMouth sores Apr- 2 Chuckie Cortes. [address] [facility], [facility] [place] [address], [place], [place], [address] , . tel: [phone] Referring Provider: Sebastian Archer, [address] [place] [address], [place], [address] . tel:[phone] [email or web address], [address], [place], [place], [address] , tel: [phone] [facility] Elevated PSA Sep-2 [address], [facility], [place] [address], [place], [address], . tel: [phone] Referring Provider: Juan Jose Martinez, [address] [facility], [place] [address], [address]. tel:[phone] OFFICE TMYKN-HAA-TT PANDED [email or web address], [address], [place], [place], [address] , tel: [phone] [facility] Erectile dysfunction (chief complaint) Erectile dysfunction, unspecified erectile dysfunction typeElevated PSA Sep-2 [address], [facility], [place] [address], [place], [facility], . tel: [phone] Referring Provider: Sebastian Archer, [address], [address] . tel:[phone] OFFICE OGZSL-NJE-IC TAILED [facility], [address], [place], [place], [address] , tel: [phone] [facility] med tx (chief complaint) Body mass index (BMI) 35.0-35.9, adultElevated PSADiabetic polyneuropathy associated with type 2 diabetes mellitusEssential (primary) hypertensionErect ile dysfunction, unspecified erectile dysfunction type 1 Chuckie Cortes. [address] [facility], [address], [id number] , . tel: [phone] Referring Provider: Sebastian Archer, [address] [place] [address], [address] . tel:[phone] OFFICE [facility], [address], [place], [place], [address] , tel: [phone] [facility] Prostate cancer (chief complaint) Elevated PSA May-1 [address], [address], [facility], . tel: [phone] Referring Provider: Sebastian Archer, [address] [place] [address], [address] . tel:[phone] [facility], [address], [place], [place], [address] , tel: [phone] [facility] Elevated PSA (chief complaint) Elevated PSA May-0 - 1 [address], [facility], [place] [address], [place], [facility], . tel: [phone] Referring Provider: Sebastian Archer, [address] [facility] [address], [address] . tel:[phone] [facility], [address], [place], [place], [address] , tel: [phone] [facility] Benign prostatic hyperplasia without lower urinry tract symp 1 Chuckie Cortes. [address] [facility], [address], [id number] , . tel: [phone] Referring Provider: Sebastian Archer, [address] [place] [address], [address] . tel:[phone] [facility], [address], [place], [place], [address] , tel: [phone] [facility] Prostate complaint (chief complaint) Enlarged prostate 1 Michelle Ingram. [address] Kae Ortega, [address], [address], [place]. tel: [phone] Referring Provider: Sebastian Archer, [address] [place] [address], [address] . tel:[phone] OFFICE [facility], [address], [place], [place], [address] , [place] tel: [phone] [facility] med tx (chief complaint) Body mass index (BMI) 36.0-36.9, adultEssential (primary) hypertensionHyper tension associated with diabetesDiabetic polyneuropathy associated with type 2 diabetes mellitusEncounter for screening for malignant neoplasm of colon 1 Chuckie Cortes. [address] [place] [address], [address], [id number] , . tel: [phone] Referring Provider: Sebastian Archer, [address] [place] [address], [address] . tel:[phone] [facility], [address], [place], [place], [address] , tel: [phone] [facility] No Information 1 Chuckie Cortes. [address] [facility], [address], [id number] , [place]. tel: [phone] OFFICE UHRIL-WTY-WN MP-MED [facility], [address], [place], [place], [address] , [place] tel: [phone] [facility] med tx (chief complaint) Body mass index (BMI) 32.0-32.9, adultScreening PSA (prostate specific antigen)Encounter for screening for malignant neoplasm of colonHypertension associated with diabetesEssential (primary) hypertensionDiabe tic polyneuropathy associated with type 2 diabetes mellitus [address] [place] [address], [address], [id number] , . tel: [phone] Referring Provider: Sebastian Archer, [address] [place] [address], [place], [address] . tel:[phone] Family History Family Member Type Diagnosis Age At Onset Mother Problem Lymphoma Father Problem Cancer, unknown Mother Problem malignant neoplasm of pancre as Immunizations Vaccine Date Status Comments Moderna (Low Dose) COVID19 Vaccine, 0.25mL per dose, booster dose administered Source: Other Provid er Moderna (Low Dose) COVID19 Vaccine, 0.25mL per dose, booster dose administered Source: Other Provid er Moderna COVID19 Vaccine, 0.5 mL per dose, 2 doses, administered 28 days apart administered Source: Other Provid er Moderna COVID19 Vaccine, 0.5 mL per dose, 2 doses, administered 28 days apart administered Source: Other Regist maicol Fluzone High-Dose, high dose , preservative free administered Note: [facility] ; So urce: Other Provider Fluzone High-Dose, high dose , preservative free administered Note: [facility] ; So urce: Source Unspecified Payers Payer name Insurance type Covered democrat ID Authoriza tidayanna(s) MEDICARE MB [id number] Social History Type Description Quantity Date Captured Comments Alcohol Use Details Unknown Caffeine Use Details Unknown Tobacco Use Status No Information Smoking Status No Information Sex Male Sexual Orientation Straight or heterosexual Gender Identity Male Chief Complaint And Reason For Visit No Information Reason For Referral Reason For Referral No Information Plan Of Treatment Date Type Action Status Goal Dietary manageme nt education, guidance, and counseling completed Goal Dietary manageme nt education, guidance, and counseling completed Goal Dietary manageme nt education, guidance, and counseling completed Goal Dietary manageme nt education, guidance, and counseling completed Goal Dietary manageme nt education, guidance, and counseling completed Goal Dietary manageme nt education, guidance, and counseling completed Referral Referred To: [id number] [place] [address], [id number] Ordered: COLONOSCOPY, Flexible, Proximal To Splenic, Diagnostic, Wor W/O Collection Of Sp ordered Future Order: Lab Order PSA ([id number]), S ent on: Sent History Of Present Illness Encounter Date Complaint History Of Prese nt Illness Patient encounter Chief complain t: annual medicare.Medicare annual wellness visit, initial check labscontinue to try to eat healthy, keep activehealth screening discussedMorbid (severe) obesity due to excess calories needs to get out of houselow sodium diet diet and exerciseEssential (primary) hypertension no chest pain , sad monitor Bp and log , call with changesDiabetic polyneuropathy associated with type 2 diabetes mellitus not going out followed by dr Ferro refused additional tests for nowErectile dysfunction, unspecified erectile dysfunction typeno interest not in a moodMild major depression concern of financial issues and stocks , pretty down no SI or Hi ideationtrial of esciatlopram Medicare preventive Recently, th e patient has felt down, depressed or hopeless and has felt little interest or pleasure in doing things. Functional Status: (Functional status has not changed) on 06/30/2022. Cognitive Status: Normal cognition (Cognitive status has changed) and method used is 6cit on 06/30/2022. The ''Up and Go'' test took less than 30 seconds andthe patient does not need help with activities of daily living. The patient is not at risk for falls. The patient has fallen 1 times in the last year. The fall(s) did not result in injury. Patient reports a diabetic diet. Patient reports taking a multivitamin daily. Relevant history is positive for alcohol use. Relevant history is negative for tobacco use. Screening services were reviewed and updated. Patient encounter Diabetic polyn europathy associated with type 2 diabetes mellitus stable check A1c, cont present medication, cont to watch carbs and keep activeEssential (primary) hypertension low sodium diet diet and exerciseMorbid (severe) obesity due to excess calories weight loss needed , advised to be more activeRising PSA level followed by urologist 6 Month no concerns at t his time- pt is not fastingEssential (primary) hypertension low sodium diet diet and exerciseMorbid (severe) obesity due to excess caloriesweight loss beneficialDiabetic polyneuropathy associated with type 2 diabetes mellitus stable check A1c, cont present medication, cont to watch carbs and keep activeErectile dysfunction, unspecified erectile dysfunction typestable, continue to control risk factorsMouth sores stable , continue treatment with specialist Erectile dysfunction CHIEF COMPL AINT:Erectile dysfunctionHISTORY OF PRESENT ILLNESS:The patient states he is doing well. He states he has a strong and steady stream. He denies any family history of prostate cancer. The patient confirms he is taking the sildenafil but it is not working for him. no hematuria, cystitis, incontinence. Complete emptying.UROLOGY HISTORY:1. Prostate biopsy in 05/2020- no evidence of disease2. PSA 05/2020- 2.54MEDICAL HISTORY:1. Insulin diabetes2. Erectile dysfunctionFAMILY HISTORY:The patient denies any family history of prostate cancer. CURRENT MEDICATIONS:1. sildenafilATTESTATION:This note has been created using StyleChat by [employer] and was completed in the EHR by Joy Matos. med tx Elevated PSA Per dr Martinez stable , continue treatment with specialistDiabetic polyneuropathy associated with type 2 diabetes mellitus gets treatment at [facility] stable check A1c, cont present medication, cont to watch carbs and keep activeEssential (primary) hypertension doing well low sodium diet diet and exerciseErectile dysfunction, unspecified erectile dysfunction typeno chest pain or sob stable ,risk reduction trial of sildenafil Prostate cancer Prostate cancer (comments) patie nt with recent uncomplicated prostate biopsy. Thankfully the biopsy is benign. No hematuria, cystitis, change in voiding symptoms. Elevated PSA (comments) patient presents for a prostate test. Patient is insulin-dependent diabetic. He is a slightly diminished forces stream. No hematuria cystitis, urgency, incontinence. No family history of prostate cancer. Non-smoker. No previous urologic care. Elevated PSA Pertinent histor y includes age over 50. Prostate complaint Prostate complaint (comments) alpa mejia presents for a prostate test. Patient is insulin-dependent diabetic. He is a slightly diminished forces stream. No hematuria cystitis, urgency, incontinence. No family history of prostate cancer. Non-smoker. No previous urologic care. med tx Essential (prima ry) hypertension low sodium diet diet and exerciseHypertension associated with diabetes weight loss needed , advised to be more activeDiabetic polyneuropathy associated with type 2 diabetes mellitus stable , continue treatment with specialist med tx Diabetic polyneu ropathy associated with type 2 diabetes mellitus followed by dr Ferro stable check A1c, cont present medication, cont to watch carbs and keep activeHypertension associated with diabetes low sodium diet diet and exerciseEssential (primary) hypertension stable, continue to control risk factors Functional Status Date Functional Assessmen t No Information Instructions Date Instruction Additional Infor mation no SI or Hi ideation trial of esciatlopram Related to Mild major depression low sodium diet diet and exercis e Related to Morbid (severe) obesity due to excess calories not in a mood Related to Erect ile dysfunction, unspecified erectile dysfunction type check labscontinue t o try to eat healthy, keep activehealth screening discussed Related to Medicare annual wellness visit, initial followed by dr Kristopher enciso refused additional tests for now Related to Diabetic polyneuropathy associated with type 2 diabetes mellitus monitor Bp and log , call with changes Related to Essential (primary) hypertension Counseled on weight reduction Dietary management e ducation, guidance, and counseling Related to Body mass index (BMI) 33.0-33.9, adult Exercise Counseled on dietary changes low sodium diet diet and exercis e Related to Essential (primary) hypertension stable check A1c, co nt present medication, cont to watch carbs and keep active Related to Diabetic polyneuropathy associated with type 2 diabetes mellitus weight loss needed , advised to be more active Related to Morbid (severe) obesity due to excess calories followed by urologist Related to Rising PSA level Exercise Dietary management e ducation, guidance, and counseling Related to Body mass index (BMI) 39.0-39.9, adult sildenafil Related to Erect ile dysfunction, unspecified erectile dysfunction type 1. Rising PSA level. We will obtain a PSA today. Follow-up in 1 year with a PSA prior.I have reviewed and discussed the patient's labs with him today.ATTESTATION:This note has been created using [employer] and was completed in the EHR by Joy Matos. Related to Rising PSA level stable , continue tr eatment with specialist Related to Mouth sores stable check A1c, co nt present medication, cont to watch carbs and keep active Related to Diabetic polyneuropathy associated with type 2 diabetes mellitus stable, continue to control risk factors Related to Erectile dysfunction, unspecified erectile dysfunction type weight loss beneficial Related t o Morbid (severe) obesity due to excess calories low sodium diet diet and exercis e Related to Essential (primary) hypertension Exercise Dietary management e ducation, guidance, and counseling Related to Body mass index (BMI) 40.0-44.9, adult check PSA today. Check PSA one y ear Related to Elevated PSA I recommend generic Cialis Relat ed to Erectile dysfunction, unspecified erectile dysfunction type stable check A1c, co nt present medication, cont to watch carbs and keep active Related to Diabetic polyneuropathy associated with type 2 diabetes mellitus low sodium diet diet and exercis e Related to Essential (primary) hypertension stable , continue tr eatment with specialist Related to Elevated PSA stable ,risk reducti on trial of sildenafil Related to Erectile dysfunction, unspecified erectile dysfunction type Exercise Dietary management e ducation, guidance, and counseling Related to Body mass index (BMI) 35.0-35.9, adult I explained the risk of a false negative prostate biopsy.I recommend a PSA in six months. If the PSA increases, I will get a MRI. Related to Elevated PSA The patient underwen t a prostate biopsy today. We will contact the patient with test results. A two-week followup will be scheduled. The patient should notify us immediately ifshaking chills or fever-100.5???. Blood in the urine, ejaculation and with bowel movements are normal. The patient should take ciprofloxacin again tomorrow. Related to Elevated PSA normal [place]. Check PS A. Flomax when symptoms worsen. Related to Enlarged prostate stable , continue tr eatment with specialist Related to Diabetic polyneuropathy associated with type 2 diabetes mellitus weight loss needed , advised to be more active Related to Hypertension associated with diabetes low sodium diet diet and exercis e Related to Essential (primary) hypertension Exercise Dietary management e ducation, guidance, and counseling Related to Body mass index (BMI) 36.0-36.9, adult check labs Related to Scree liudmila PSA (prostate specific antigen) stable check A1c, co nt present medication, cont to watch carbs and keep active Related to Diabetic polyneuropathy associated with type 2 diabetes mellitus low sodium diet diet and exercis e Related to Hypertension associated with diabetes stable, continue to control risk factors Related to Essential (primary) hypertension Dietary management e ducation, guidance, and counseling Related to Body mass index (BMI) 32.0-32.9, adult Giving encouragement to exercise Related to Body mass index (BMI) 32.0-32.9, adult Assessments Type Assessment Date No Information Patient Care Teams Name Effective Dates (start - stop) Status Members No Information
--- NOTE | 2024-04-07 00:18 | PM.TDS ---
Transfer Discharge Sum: Prov Provider Date of admission: 03/30/24 14:27 Primary care physician: isaac enrique Admitting clinician: Taj Young MD Consults: 03/30/24 Consult to Physician Routine Comment: Consulting Provider: Ugo Johns Reason for consultation: subcapital femur fx R Has provider been notified: Yes 04/04/24 Consult to Physician Routine Comment: Consulting Provider: order desk caller/MD group to consult: Neurology Reason for consultation: Persistent Orthstasis for two years, now resulting in falls. NPH? Has provider been notified: No 04/06/24 Consult to Physician Routine Comment: Consulting Provider: order desk caller/MD group to consult: General surgery Reason for consultation: Pneumoperitoneum Has provider been notified: Yes Attending physician on discharge: Caroline Nagy Discharging clinician: Caroline Nagy Anticipated date of transfer: 04/07/24 Receiving physician/facility: [facility] Dr. Dodge DS: Admitting Diagnosis Discharge Date 04/07/2024 Admitting Diagnosis Fall with right hip fracture DS: Discharge Diagnosis Discharge Diagnosis (1) Gastric emphysema: Code(s): K29.60 - Other gastritis without bleeding Status: Acute (2) Fecal impaction: Code(s): K56.41 - Fecal impaction Status: Acute (3) Stercoral colitis: Code(s): K52.89 - Other specified noninfective gastroenteritis and colitis Status: Acute (4) Low motivation: Code(s): R46.89 - Other symptoms and signs involving appearance and behavior Status: Acute (5) SIRS (systemic inflammatory response syndrome): Code(s): R65.10 - Systemic inflammatory response syndrome (SIRS) of non-infectious origin without acute organ dysfunction Status: Acute (6) Hyperglycemia due to diabetes mellitus: Code(s): E11.65 - Type 2 diabetes mellitus with hyperglycemia Status: Acute (7) Insulin dependent diabetes mellitus: Status: Acute (8) Hypothyroidism (acquired): Code(s): E03.9 - Hypothyroidism, unspecified Status: Acute (9) Hyponatremia: Code(s): E87.1 - Hypo-osmolality and hyponatremia Status: Acute (10) Abnormal urinalysis: Code(s): R82.90 - Unspecified abnormal findings in urine Status: Acute Plan The patient developed worsening abdominal symptoms CT for any concerning for gastric emphysema/ischemic gastritis and or acute cholecystitis. Patient is also developed tachycardia and profound leukocytosis meeting SIRS criteria. Blood cultures and urine cultures were obtained. He was placed on antibiotic coverage with Zosyn to cover for possible colitis or cholecystitis. Given tachycardia and evidence of volume depletion with elevated urine specific gravity dry mucous membranes and mottled appearance patient did receive IV fluid bolus of LR 1 L. With LR administration patient's heart rate did transiently come down. Lactic acid was obtained which was normal. The patient remained afebrile throughout process and evaluation. General surgery was contacted who recommended patient be transferred to higher level of care for potential surgical intervention for gastric emphysema. An NG was placed but was malpositioned. Despite multiple attempts to reposition in NG tube remained kinked and elevated in the distal esophagus. Despite the position in the distal esophagus the NG was still draining a significant amount of gastric secretions totaling at least 0.5 L if not more. The patient's KUB did demonstrate decreased gastric distension but again did demonstrate concerning findings of gastric wall emphysema. Patient has NGG was not just coiled in the distal esophagus but actually kinked and as were trying to reposition the NG the kink was remaining in place. We subsequently removed the NG. The patient was refusing replacement of the NG about this time is whenever we received notification that the patient had been accepted to [facility]. The accepting facility was where the patient was refusing replacement of the NG tube. Multiple tertiary care facilities were contacted. The patient was eventually accepted to [facility] with direct transfer to the ER for evaluation by the acute surgical service. The accepting physician was Dr. Asencio. Patient did have electrolyte abnormalities that had been replaced earlier in the day. However phosphorus had not been replaced yet. I did give the patient a potassium phosphate rider that was completed prior to transfer. The patient's oral medications were held his diet as was change in p.o.. Previously ordered Toradol was discontinued. The patient was placed on Protonix IV b.i.d.. Patient's levothyroxine was switched from oral to IV formulation. Patient does have uncontrolled diabetes with persistent hyperglycemia. He was switched from a.c. HS Accu-Cheks to Accu-Cheks q.6 hours. He remains on high dose sliding scale insulin. The patient was still receiving Lantus 12 units subQ nightly. Patient also had abnormal appearing urine with nitrates, 2+ esterase but no visualized bacteria. Patient is already on antibiotic coverage as discussed above. Urine cultures pending. Transfer Discharge Sum: Med Medications Active and Home Medications: Home Medications B12 BYMOUTH 02/15/22 [History Confirmed 02/15/22] cholecalciferol (vitamin D3) 1,250 mcg (50,000 unit) capsule 1,250 mcg PO WEEKLY 02/15/22 [History Confirmed 03/30/24] insulin NPH isoph U-100 human 100 unit/mL (3 mL) subcutaneous pen (Humulin N NPH U-100 Insulin KwikPen) 88 unit subcut BID 02/15/22 [History Confirmed 03/30/24] insulin regular hum U-500 conc 500 unit/mL(3 mL) subcut pen (Humulin R U-500 (Conc) Insulin Kwikpen) See Rx Instructions subcut BIDWMEAL 90 days #30 mL 02/15/22 [Rx Confirmed 03/30/24] levothyroxine 200 mcg tablet (Synthroid) 200 mcg PO DAILY 02/15/22 [History Confirmed 03/30/24] lisinopril 20 mg tablet 20 mg PO DAILY 02/15/22 [History Confirmed 03/30/24] rosuvastatin 5 mg tablet 5 mg PO DAILY #90 tabs 02/15/22 [Rx Confirmed 03/30/24] enoxaparin 30 mg/0.3 mL subcutaneous syringe 30 mg (0.3 mL) subcut DAILY 30 days #9 mL 04/03/24 [Rx] insulin aspart U-100 100 unit/mL subcutaneous solution (Novolog U-100 Insulin aspart) 1 - 3 unit subcut HS #10 mL 04/03/24 [Rx] insulin aspart U-100 100 unit/mL subcutaneous solution (Novolog U-100 Insulin aspart) 3 - 6 unit subcut TIDWM #10 mL 04/03/24 [Rx] midodrine 5 mg tablet 5 mg PO TID #90 tabs 04/03/24 [Rx] oxycodone-acetaminophen 5 mg-325 mg tablet 1 - 2 tablet PO Q4-6H PRN pain #30 tabs 04/03/24 [Rx] Active Medications Acetaminophen (Acetaminophen 500 Mg Tablet) 1,000 mg PO QID MICHAEL Last Admin: 04/06/24 22:12 Dose: Not Given Bisacodyl (Bisacodyl 10 Mg Suppository) 10 mg RECTAL BID PRN PRN Reason: Constipation Dextrose (Dextrose 50% 25 Gm/50 Ml Syringe) 12.5 gm IV PUSH PRN PRN; Protocol PRN Reason: Hypoglycemia Enoxaparin Sodium (Enoxaparin 30 Mg/0.3 Ml Syringe) 30 mg SUB-Q DAILY [facility] Last Admin: 04/06/24 09:59 Dose: 30 mg Gabapentin (Gabapentin 300 Mg Capsule) 300 mg PO HS [facility] Last Admin: 04/06/24 22:12 Dose: Not Given Glucagon (Glucagon For Inj 1 Mg Vial) 1 mg IM PRN PRN; Protocol PRN Reason: Hypoglycemia Glucose (Glucose Oral Gel 15 Gm Of Glucse In 37.5 Gm Tube) 15 gm PO PRN PRN; Protocol PRN Reason: Hypoglycemia Hydromorphone HCl (Hydromorphone Hcl Inj (*Crx) 1 Mg/Ml Syr) 1 mg IV PUSH Q2H PRN PRN Reason: Breakthrough Pain Rated 7-10 or NPO Last Admin: 04/06/24 19:29 Dose: 1 mg Hydromorphone HCl (Hydromorphone Hcl Inj (*Crx) 1 Mg/Ml Syr) 0.5 mg IV PUSH Q2H PRN PRN Reason: Breakthrough Pain Rated 4-6 or NPO Last Admin: 04/02/24 13:12 Dose: 0.5 mg Hydroxyzine Pamoate (Hydroxyzine Pamoate 25 Mg Capsule) 50 mg PO Q4H PRN PRN Reason: Itching Piperacillin Sod/Tazobactam Sod (Zosyn 4.5 Gm/Ns 100 Ml) 4.5 gm in 100 mls @ 200 mls/hr IVPB Q6H [facility] Last Admin: 04/06/24 21:00 Dose: 200 mls/hr Potassium Phosphate 40 mmol/ (Sodium Chloride) 263.3333 mls @ 43.889 mls/hr IVPB ONCE ONE Stop: 04/07/24 03:01 Last Admin: 04/06/24 22:17 Dose: 43.89 mls/hr Lactated Ringer's (Lr - Lactated Ringers Iv) 1,000 mls @ 100 mls/hr IV CONT .Q10H [facility] Insulin Aspart (Insulin Aspart (*Bkc) 100 Units/Ml) 6 units 0.067 units/kg (6 units) SUB-Q TIDWM [facility] Last Admin: 04/06/24 17:07 Dose: Not Given Insulin Aspart (Insulin Aspart (*Bkc) 100 Units/Ml) 4 - 8 units SUB-Q Q6HR [facility]; Protocol Insulin Glargine (Insulin Glargine (*Bkc) 100 Units/Ml) 10 units SUB-Q Q12HR [facility] Last Admin: 04/06/24 22:43 Dose: Not Given Ketorolac Tromethamine (Ketorolac 15 Mg/Ml Vial (*Bkc)) 15 mg IV PUSH Q8HR [facility] Last Admin: 04/06/24 16:48 Dose: 15 mg Levothyroxine Sodium (Levothyroxine Sodium 100 Mcg Tablet) 200 mcg PO DAILY@0630 [facility] Last Admin: 04/06/24 06:17 Dose: 200 mcg Lisinopril (Lisinopril 5 Mg Tablet) 5 mg PO HS [facility] Last Admin: 04/06/24 22:15 Dose: Not Given Methocarbamol (Methocarbamol 500 Mg Tablet) 500 mg PO QID [facility] Last Admin: 04/06/24 22:15 Dose: Not Given Metoclopramide HCl (Metoclopramide Hcl Inj 10 Mg/2 Ml Vial) 5 mg IV PUSH Q6HR PRN PRN Reason: secondline for nausea/vomiting Last Admin: 04/05/24 13:27 Dose: 5 mg Midodrine (Midodrine Hcl 10 Mg Tablet) 10 mg PO TID [facility] Last Admin: 04/06/24 17:07 Dose: Not Given Naloxone HCl (Naloxone Hcl 0.4 Mg/Ml Vial) 0.1 mg IV PUSH Q2M PRN PRN Reason: Opiate Reversal Ondansetron HCl (Ondansetron Inj 4 Mg/2 Ml Vial) 4 mg IV PUSH Q4H PRN PRN Reason: Nausea And Vomiting Last Admin: 04/06/24 16:48 Dose: 4 mg Ondansetron HCl (Ondansetron Hcl Odt 4 Mg Tablet) 4 mg PO AC [facility] Last Admin: 04/06/24 17:08 Dose: Not Given Pantoprazole Sodium (Pantoprazole Sodium Iv 40 Mg Vial) 40 mg IV PUSH Q12HR [facility] Last Admin: 04/06/24 22:28 Dose: 40 mg Polyethylene Glycol (Polyethylene Glycol 3350 17 Gm Powd.Pack) 17 gm PO BID [facility] Last Admin: 04/06/24 17:08 Dose: Not Given Rosuvastatin Calcium (Rosuvastatin 5 Mg Tablet) 5 mg PO DAILY [facility] Last Admin: 04/06/24 09:56 Dose: 5 mg Scopolamine (Scopolamine 1 Mg Patch) 1 patch TRANSDERM Q72HR [facility] Last Admin: 04/05/24 13:27 Dose: 1 patch Transfer Discharge Sum: Hosp Hospital Course Hospital course: Luis Daniel Ford is a 69 year old male with a past medical history of essential hypertension, hyperlipidemia, poorly controlled insulin-dependent diabetes mellitus, orthostatic hypotension and depression who presented to the ER on the after having a fall at home several days prior. The patient had remained on the floor for several days refusing the leg his call for EMS. The patient's son then came to the home and commence the patient that EMS needed to be called. The patient was admitted for right displaced femoral neck fracture and underwent bipolar hemiarthroplasty on the . The patient had persistently low appetite and nausea following surgery. He has not had a bowel movement despite multiple stool softeners and enemas over several days. The patient had low motivation and did not want to move around or participate in care. Then today a KUB was obtained which demonstrated massive distention of the stomach with fecal stasis in the rectum suggesting fecal impaction. NG was placed to low intermittent suction had immediate return of about 500 mL of bilious appearing material. However x-ray for NG placement demonstrated curling of the NG with the tip in the distal esophagus. The patient was having persistent pain and moderate abdominal distension. Had profoundly hypoactive bowel sounds. Repeat stat labs demonstrated significant leukocytosis with WBC increased from 13 up to around 20. Patient remained afebrile but developed tachycardia with heart rates in the 110to 120. On exam patient's abdomen was distended, tympanic, with markedly hypoactive bowel sounds, he was not in any overt distress but was having involuntary guarding in seemed to have generalized abdominal pain. There was concern for possible acute abdomen. The patient was also having frankly dark brown turbid urine output He was sent for stat CT of the chest abdomen and pelvis with contrast a demonstrate mild position in G-tube which turned back on itself in the distal esophagus in terminates in the upper esophagus, gastric emphysema may be secondary ischemia or emphysematous gastritis. Gallbladder hydrops with moderate inflammatory changes suspicious for acute cholecystitis no gallbladder wall emphysema detected but gallbladder wall emphysema. Fecal impaction in the distal sigmoid and rectal wall edema could reflect colitis stercoral verses ischemic or inflammatory in nature. There is a small volume of ascites. The patient had had an echocardiogram earlier in the hospital stay which demonstrated moderate pericardial l effusion CT incidentally still demonstrated small pericardial effusion and small bilateral pleural effusions with bibasilar atelectasis. Been the patient was not having any increased work of breathing or respiratory symptoms. Patient's case was discussed with general surgeon who felt that the patient needed further evaluation for possible gastric emphysema or gastric ischemia. He felt that if patient did have gastric emphysema or ischemia and actually required surgical intervention that we could not perform the services at our facility. Subsequently I arranged transfer after talking to multiple tertiary care facilities. The patient was accepted to [facility] in transfer directly to the ER for evaluation by the acute surgical service. During the course of the hospitalization the patient also had significant hypokalemia and received approximately 140 mEq of potassium supplements in the last 24-36 hours. Potassium has improved to 3.6. Patient also received magnesium supplements due to borderline low magnesium level. On review of the patient's labs he did have a mildly low phosphorus that had not been treated I did add a potassium phosphate rider as well. Patient was on telemetry and noted to be in sinus tachycardia. He had no evidence arrhythmia otherwise. Patient's medications and labs were reviewed. The patient had been receiving Toradol that was discontinued. The patient was placed on IV Protonix, diet was changed NPO oral medications were held. Imaging findings were grossly abnormal I personally called radiology discuss findings. 205 minutes spent in critical care activities. Due to a high probability of clinically significant, life threatening deterioration, the patient required my highest level of preparedness to intervene emergently and I personally spent this critical care time directly and personally managing the patient. This critical care time included obtaining a history; examining the patient; pulse oximetry; ordering and review of studies; arranging urgent treatment with development of a management plan; evaluation of patient's response to treatment; frequent reassessment; and discussions with other providers. It was exclusive of separately billable procedures and treating other patients and teaching time. Please see Assessment and Plan section and the rest of the note for further information on patient assessment and treatment. Time Spent with Patient Time attestation: Total time spent providing and/or coordinating transfer services: 205 minutes Exam Narrative: Weight 94.3 kg BMI 27.4 Const: Other: Elderly, debilitated, acutely ill-appearing, appears older than stated age, height weight proportionate HENMT: Other: Mucous membranes are dry, NG in the left naris, head is normocephalic atraumatic Eyes: Other: No scleral icterus, pupils appear equal Neck: Other: Trachea midline, no JVD Resp: Other: Decreased breath sounds at the bases, no increased work of breathing Cardio: Other: Sinus tachycardia, 2+ bilateral radial pedal pulses, no JVD GI: Other: Moderately distended, diffusely tender, involuntary guarding, markedly hypoactive bowel sounds, tympanic : Other: Streeter catheter was placed during resuscitation efforts. The patient frankly brown dark turbid urine in the Streeter catheter, approximately 300 mL Skin: Other: Generalized pallor, non jaundice, no petechiae, cool to touch, mild mottling of the extremity these Neuro: Other: Patient is alert orient x3 but slow to respond, no facial asymmetry, no localizing neurologic deficits noted but exam limited due to patient condition Extrem: Other: No clubbing, cyanosis or edema, mottling noted to extremities Psych: Other: Flat/blunted affect, depressed mood, cooperative DS: Data Data Completed and Pending Labs on day of discharge: Labs from last 24 hours 04/06/24 04/06/24 04/06/24 20:56 20:54 20:31 WBC RBC Hgb Hct MCV MCH MCHC RDW Plt Count MPV Immature Gran % (Auto) Neut % (Auto) Lymph % (Auto) [place] % (Auto) Eos % (Auto) Baso % (Auto) Lymph # (Auto) [place] # (Auto) Eos # (Auto) Baso # (Auto) Abs Immat Gran (auto) Absolute Neuts (auto) Absolute Nucleated RBC Total Counted Neutrophils % (Manual) Band Neutrophils % Lymphocytes % (Manual) Monocytes % (Manual) Nucleated RBC % Abs Neuts (Manual) Abs Lymphs (Manual) Abs Monocytes (Manual) Platelet Estimate Schistocytes PT 18.4 H INR 1.5 APTT 28.2 Sodium Potassium Chloride Carbon Dioxide Anion Gap BUN Creatinine Estim Creat Clear Calc Estimated GFR Glucose POC Capillary Glucose Lactic Acid 1.0 Calcium Phosphorus Magnesium Total Bilirubin AST ALT Alkaline Phosphatase Total Creatine Kinase 22 L Total Protein Albumin Urine Color Dark brown H Urine Appearance Cloudy H Urine pH 6.0 Ur Specific [place] 1.041 H Urine Protein 1+ H Urine Glucose (UA) 1+ H Urine Ketones Trace H Ur Blood (Man) Negative Urine Nitrate Positive H Urine Bilirubin 2+ H Urine Urobilinogen 1.0 Add Ur Microanalysis Reviewed Leukocyte Esterase Rfl 2+ H Urine RBC 11-20 H Urine WBC 0-5 Ur Squamous Epith Cells None seen Urine Bacteria None seen Urine Casts 0-2 Urine Yeast (Budding) None 04/06/24 04/06/24 04/06/24 19:35 17:17 17:16 WBC 20.5 H RBC 4.26 L Hgb 13.1 L Hct 36.4 L MCV 85.4 MCH 30.8 MCHC 36.0 RDW 12.3 Plt Count 273 MPV 9.4 Immature Gran % (Auto) Not Reportable Neut % (Auto) Not Reportable Lymph % (Auto) Not Reportable Pettis % (Auto) Not Reportable Eos % (Auto) Not Reportable Baso % (Auto) Not Reportable Lymph # (Auto) Not Reportable Pettis # (Auto) Not Reportable Eos # (Auto) Not Reportable Baso # (Auto) Not Reportable Abs Immat Gran (auto) Not Reportable Absolute Neuts (auto) Not Reportable Absolute Nucleated RBC Not Reportable Total Counted 100 Neutrophils % (Manual) 84 H Band Neutrophils % 6 Lymphocytes % (Manual) 5.0 L Monocytes % (Manual) 5 Nucleated RBC % Not Reportable Abs Neuts (Manual) 18.45 H Abs Lymphs (Manual) 1.02 L Abs Monocytes (Manual) 1.02 H Platelet Estimate Adequate Schistocytes None seen PT INR APTT Sodium 128 L Potassium 3.6 Chloride 96 L Carbon Dioxide 26 Anion Gap 6 BUN 16 Creatinine 0.60 L Estim Creat Clear Calc 110 Estimated GFR > 60 Glucose 199 H POC Capillary Glucose 228 H Lactic Acid Calcium 7.9 L Phosphorus 2.0 L Magnesium 1.7 Total Bilirubin 1.2 AST 20 ALT 13 Alkaline Phosphatase 60 Total Creatine Kinase Total Protein 6.0 L Albumin 2.6 L Urine Color Urine Appearance Urine pH Ur Specific [place] Urine Protein Urine Glucose (UA) Urine Ketones Ur Blood (Man) Urine Nitrate Urine Bilirubin Urine Urobilinogen Add Ur Microanalysis Leukocyte Esterase Rfl Urine RBC Urine WBC Ur Squamous Epith Cells Urine Bacteria Urine Casts Urine Yeast (Budding) 04/06/24 04/06/24 04/06/24 16:55 11:40 07:36 WBC RBC Hgb Hct MCV MCH MCHC RDW Plt Count MPV Immature Gran % (Auto) Neut % (Auto) Lymph % (Auto) [place] % (Auto) Eos % (Auto) Baso % (Auto) Lymph # (Auto) [place] # (Auto) Eos # (Auto) Baso # (Auto) Abs Immat Gran (auto) Absolute Neuts (auto) Absolute Nucleated RBC Total Counted Neutrophils % (Manual) Band Neutrophils % Lymphocytes % (Manual) Monocytes % (Manual) Nucleated RBC % Abs Neuts (Manual) Abs Lymphs (Manual) Abs Monocytes (Manual) Platelet Estimate Schistocytes PT INR APTT Sodium Potassium Chloride Carbon Dioxide Anion Gap BUN Creatinine Estim Creat Clear Calc Estimated GFR Glucose POC Capillary Glucose 217 H 248 H 253 H Lactic Acid Calcium Phosphorus Magnesium Total Bilirubin AST ALT Alkaline Phosphatase Total Creatine Kinase Total Protein Albumin Urine Color Urine Appearance Urine pH Ur Specific [place] Urine Protein Urine Glucose (UA) Urine Ketones Ur Blood (Man) Urine Nitrate Urine Bilirubin Urine Urobilinogen Add Ur Microanalysis Leukocyte Esterase Rfl Urine RBC Urine WBC Ur Squamous Epith Cells Urine Bacteria Urine Casts Urine Yeast (Budding) 04/06/24 06:28 WBC 21.4 H RBC 4.38 L Hgb 13.4 L Hct 37.9 L MCV 86.5 MCH 30.6 MCHC 35.4 RDW 12.0 Plt Count 256 MPV 10.0 Immature Gran % (Auto) 1.6 H Neut % (Auto) 89.0 H Lymph % (Auto) 3.1 L [place] % (Auto) 5.7 Eos % (Auto) 0.1 Baso % (Auto) 0.5 Lymph # (Auto) 0.66 L [place] # (Auto) 1.2 H Eos # (Auto) 0.0 Baso # (Auto) 0.1 Abs Immat Gran (auto) 0.34 H Absolute Neuts (auto) 19.1 H Absolute Nucleated RBC 0.000 Total Counted Neutrophils % (Manual) Band Neutrophils % Lymphocytes % (Manual) Monocytes % (Manual) Nucleated RBC % 0.0 Abs Neuts (Manual) Abs Lymphs (Manual) Abs Monocytes (Manual) Platelet Estimate Schistocytes PT INR APTT Sodium 128 L Potassium 3.0 L Chloride 93 L Carbon Dioxide 25 Anion Gap 10 BUN 12 Creatinine 0.58 L Estim Creat Clear Calc 113 Estimated GFR > 60 Glucose 243 H POC Capillary Glucose Lactic Acid Calcium 7.4 L Phosphorus Magnesium Total Bilirubin 1.3 AST 20 ALT 14 Alkaline Phosphatase 55 Total Creatine Kinase Total Protein 6.0 L Albumin 2.7 L Urine Color Urine Appearance Urine pH Ur Specific [place] Urine Protein Urine Glucose (UA) Urine Ketones Ur Blood (Man) Urine Nitrate Urine Bilirubin Urine Urobilinogen Add Ur Microanalysis Leukocyte Esterase Rfl Urine RBC Urine WBC Ur Squamous Epith Cells Urine Bacteria Urine Casts Urine Yeast (Budding) Imaging Radiologist's impression: ITS Impressions Hip/Pelvis X-Ray 03/30/24 12:17 IMPRESSION: Right subcapital femoral neck fracture Chest X-Ray 03/30/24 12:18 IMPRESSION: No active cardiopulmonary disease Knee X-Ray 03/30/24 13:05 IMPRESSION: No fracture or dislocation or joint effusion is detected Osteopenia Carotid Doppler Study 03/30/24 15:39 IMPRESSION: 1. Less than 50% stenosis in the right internal carotid artery. 2. Less than 50% stenosis in the left internal carotid artery. Hip X-Ray 04/01/24 19:53 IMPRESSION: Expected perioperative appearance of a right total hip arthroplasty. Abdomen X-Ray 04/06/24 15:31 IMPRESSION: Massive gaseous distention of the stomach for which urgent decompression is recommended. Abdomen X-Ray 04/06/24 19:32 IMPRESSION: Malpositioned NG tube. Gastric emphysema, as can be seen with emphysematous gastritis, ischemia, perforated ulcer, and trauma. CT of the chest, abdomen, and pelvis already scheduled but should be performed STAT. Results reported telephonically to Bhanu Price RN by Dr. Ayala at 7:40 PM on 04/06/2024. Chest/Abdomen/Pelvis CT 04/06/24 20:24 IMPRESSION: Small pericardial effusion. Small bilateral pleural effusion with likely bibasilar dependent atelectasis. Infection is not excluded. Malpositioned NG tube which turns back on itself in the distal esophagus and terminates in the upper esophagus. Gastric emphysema, may be secondary to ischemia and/or emphysematous gastritis. Gallbladder hydrops with moderate inflammatory changes suspicious for cholecystitis. No gallbladder wall emphysema detected (which can be a cause of gastric emphysema). Likely fecal impaction. Distal sigmoid and rectal wall edema may reflect a component of colitis, such as stercoral, infectious, ischemic, or inflammatory. Small volume ascites. Results discussed telephonically with Dr. Nagy by Dr. Ayala at 7:35 PM on 04/06/2024. [place] hundred [id number] at [id number] Additional Comments Additional comments: Condition on discharge: Serious but stable
[2024-04-07 03:08] LABS: Glucose Point of Care 197 mg/dl (65-105)
--- NOTE | 2024-04-07 04:55 | PC.NURSE ---
Pt has been discharged per EMS to [facility]. Report given to Larry at [facility] and EMS. Pt left with an IV in his R FA and L FA. Pt also had a mendoza catheter that was patent and draining dark brown/black urine, that was placed on this date. Pt's notified that pt would be going to [facility] this shift, for higher level of care and possible surgery. Both pt and exhibited good understanding of why pt needed to be transferred. Tele monitor removed and cleaned.
[2024-04-08 16:09] LABS: Osmolality, Urine 793 mOsm/kg (50-1200)
--- OUTSIDE RECORDS SUMMARY | 2024-04-10 17:12 | XMS_ITS | Clinical Summary ---
Author Organization [facility] Address [address] [facility] [place] [address] Care Team Providers Care Director Of Recruitment Name Role Phone Chuckie Chavira MD, Sebastian Grace Primary Care Provid er Source Comments [facility],non-owned Affiliates and Associated Physician Practices is amultiple site organization consisting of ambulatory clinics and hospital sitesin [place], [place], [place] and [place]. This disclosure is being madepursuant to the Care Everywhere program and may not contain all information available regarding this patient. Last updated 17.[facility] Allergies No known active allergies Medications * Be aware that medications may not be up to date on this document. Alwaysverify current medications with the patient. Medication Sig Dispensed Refills Start Date End Date Status Insulin Aspart (NOVOLOG SC) Suspended aspirin (ASPIRIN) 325 MG tablet Take 1 (one) tablet by mouth Suspended insulin detemir (LEVEMIR) pen Inject 12 (twelve) Units subcutaneously Suspend ed lisinopril (PRINIVIL; ZESTRIL) 20 MG tablet Take 1 (one) tablet by mouth 06/04/2015 Suspended insulin aspart (NOVOLOG FLEXPEN) pen 04/02/2015 Suspended levothyroxine (SYNTHROID) 125 MCG tablet Take 1 Tab by mouth once daily 30 Tab 2 01/10/2016 Suspended Additional Information acetaminophen-cod eine (TYLENOL #3) 300-30 MG tablet Take 1 (one) tablet by mouth every 6 hours as needed pain 03/30/2020 Suspend ed doxycycline hyclate (VIBRAMYCIN) 100 MG capsule Take 1 (one) capsule by mouth 2 times daily 07/28/2020 Suspended ONETOUCH VERIO test strip USE TO TEST TID 01/31/2020 Suspended Insulin Lispro (HUMALOG KWIKPEN) 100 UNIT/ML INJECT UP TO 120 UNITS PER DAY IN DIVIDED DOSES DIRECTED ON SLIDING SCALE 02/19/2020 Suspended NA-K-MG sulfates (SUPREP) 17.5-3.13-1.6 GM/177ML solution Take 177 mL by mouth once daily 177 mL 08/04/2020 Suspended Additional Information Insulin NPH Human, Isophane, (HUMULIN N KWIKPEN SC) Inject 15 Units subcutaneously 3 times daily Suspended Vitamin D, Cholecalciferol, 25 MCG (1000 UT) CAPS Suspended Active Problems Problem Noted Date Diagnosed Date Hyponatremia 04/08/2024 Hypotension 04/08/2024 Hypokalemia 04/08/2024 Presence of indwelling Streeter catheter 04/08/2024 Hyperglycemia 04/08/2024 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 04/08/2024 Hypothyroid 04/08/2024 Abdominal pain, generalized 04/07/2024 Gastric emphysema 04/07/2024 Leukocytosis, unspecified type 04/07/2024 Stercoral colitis 04/07/2024 Screening for colorectal cancer 08/04/2020 Benign essential HTN 01/10/2016 Bradycardia 01/10/2016 Encounters Date Type Department Care Team Description 04/07/2024 3:01 PM [employer]OUND [employer]PPORT EQUIPMENT FITTER Anesthesia Event [facility] [address] [place] [address] Kimberly Guzman MD Dobbs, Kristin L, RESIDENTIAL ROOFER-CLAIMS COUNSEL 04/07/2024 2:46 PM GROUND SUPPORT EQUIPMENT FITTER - 04/07/2024 3:16 PM GROUND SUPPORT EQUIPMENT FITTER Surgery [facility] [address] [place] [address] Erasto Urbina MD EGD 04/07/2024 4:47 AM GROUND SUPPORT EQUIPMENT FITTER - Present Hospital Encounter [facility] [facility] [address] [place] [address] Jamaal White, Rachel Urbina MD Morreale, Peter J III, MD Albrecht, Ryan, DO Mayer, Joshua C, Emergency Medicine 04/07/2024 Travel from Last 3 Months Social History Tobacco Use Types Packs/Day Years Used Date Smoking Tobacco: Never Smokeless Tobacco: Never Alcohol Use Standard Drinks/Week Comments Not Currently 4 (1 standard drink = 0.6 oz pur e alcohol) AUDIT-C Answer Date Recorded Q1: How often do you have a drink containing alc ohol? Patient declined 04/07/2024 Q2: How many drinks containi ng alcohol do you have on a typical day when you are drinking? Patient declined 04/07/2024 Q3: How often do you have si x or more drinks on one occasion? Patient declined 04/07/2024 Overall Financial Resource Strain (CARDIA) Answe r Date Recorded How hard is it for you to pa y for the very basics like food, housing, medical care, and heating? Patient declined 04/07/2024 [facility] - Occupational Stress Questionnaire Answer Date Recorded Do you feel stress - tense, restless, nervous, or anxious, or unable to sleep at night because your mind is troubled all the time - these days? Patient declined 04/07/2024 Hunger Vital Sign Answer Date Recorded Within the past 12 months, y ou worried that your food would run out before you got the money to buy more. Patient declined Within the past 12 months, t he food you bought just didn't last and you didn't have money to get more. Patient declined PRAPARE - Transportation Answer Date Re corded In the past 12 months, has l ack of transportation kept you from medical appointments or from getting medications? Patient declined 04/07/2024 In the past 12 months, has l ack of transportation kept you from meetings, work, or from getting things needed for daily living? Patient declined 04/07/2024 Housing Stability Vital Sign Answer Jonny e Recorded In the last 12 months, was t here a time when you were not able to pay the mortgage or rent on time? Patient declined 04/07/19 25 In the past 12 months, how m any times have you moved where you were living? 0 04/07/2024 At any time in the past 12 m [facility], were you homeless or living in a correction (including now)? Patient declined 04/07/2024 Sex and Gender Information Value Date Recorded Sex Assigned at Not on file Gender Identity Not on file Sexual Orientation Not on file Last Filed Vital Signs Vital Sign Reading Time Taken Comments Blood Pressure 158/81 04/10/2024 11:34 AM GROUND [employer]PPORT EQUIPMENT FITTER Pulse 83 04/10/2024 11:34 AM GROUND SUPPORT EQUIPMENT FITTER Temperature 36.7 ??C (98.1 ??F) 04/10/2024 11:[address] Respiratory Rate 18 04/10/2024 11:34 AM GROUND SUPPORT EQUIPMENT FITTER Oxygen Saturation 92% 04/10/2024 11:34 AM GROUND SUPPORT EQUIPMENT FITTER Inhaled Oxygen Concentration - - Weight 97.5 kg (215 lb) 04/07/2024 6:19 PM GROUND SUPPORT EQUIPMENT FITTER Height 188 cm (6' 2 ) 04/07/2024 6:19 PM [employer]OUND SU[employer] EQUIPMENT FITTER Body Mass Index 27.6 04/07/2024 6:19 PM [employer]OUND SUPPORT EQUIPMENT FITTER Plan of Treatment Health Maintenance Due Date Last Done Comments COLOGUARD (AGES 45-75) - COLON CA SCREENING 1954 CT COLONOGRAPHY - COLON CA SCREENING 1955 FIT - COLON CA SCREENING 1955 FLEX SIG - COLON CA SCREENING 1955 MEDICARE AWV ? 12 MONTHS 1955 HEPATITIS C SCREENING 01/04/1972 DTAP/TDAP/TD VACCINES (1 - Tdap) 1973 PNEUMOCOCCAL VACCINE 50+ (1 of 2 - PCV) 1973 DIABETES-STATIN 1994 ZOSTER VACCINE (1 of 2) 01/09/2004 Respiratory Syncytial Virus (RSV) Vaccine Pt: or over 60 yrs (1 - Risk 60-74 years 1-dose series) 2014 COLON MONITORING 09/14/2023 09/13/2020, 09/13/2020 Colorectal Cancer Screening 09/14/2023 COVID-19 VACCINE ( season) 2023 06/23/2021, 02/22/2021, 06/24/2020, Additional history exists INFLUENZA VACCINE (#1) 2023 02/22/2021, 2020 DEPRESSION SCREENING 03/19/2024 DIABETES - URINE PROTEIN SCREENING 03/19/2024 08/30/2019 DIABETES RETINOPATHY SCREENING 04/08/2024 DIABETES-FOOT EXAM WITH MONOFILAMENT 04/08/2024 DIABETES-HGB A1C 10/06/2024 04/08/2024 DIABETES-SERUM CREATININE 04/10/20252024, 04/09/2024, 04/08/2024, Additional history exists COLONOSCOPY - COLON CA SCREENING 09/13/2030 09/13/2020, [...] patient's age to complete this topic Procedures The patient is currently admitted. The information in this section might not be complete until the patient is discharged. Procedure Name Priority Date/Time Associated Diagnosis Comments GLUCOSE - POINT OF CARE Routine 04/10/2024 12:24 PM [employer]OUND [employer] EQUIPMENT FITTER GLUCOSE - POINT OF CARE Routine 04/10/2024 8:44 AM [employer]OUND SUPPORT EQUIPMENT FITTER MAGNESIUM BLOOD Routine 04/10/2024 6:15 AM [employer]OUND SUPPORT EQUIPMENT FITTER RENAL FUNCTION PANEL Routine 04/10/2024 6:15 AM [employer]OUND SUPPORT EQUIPMENT FITTER CBC W AUTO DIFFERENTIAL Routine 04/10/2024 6:15 AM [employer]OUND [employer] EQUIPMENT FITTER GLUCOSE - POINT OF CARE Routine 04/10/2024 3:33 AM [employer] SUPPORT EQUIPMENT FITTER GLUCOSE - POINT OF CARE Routine 04/10/2024 12:03 AM [employer]PPORT EQUIPMENT FITTER GLUCOSE - POINT OF CARE Routine 04/09/2024 8:49 PM [employer] SUPPORT EQUIPMENT FITTER GLUCOSE - POINT OF CARE Routine 04/09/2024 5:20 PM [employer]OUND SUPPORT EQUIPMENT FITTER XR HIP RIGHT 2VW OR MORE STAT 04/09/2024 1:29 PM GROUND SUPPORT EQUIPMENT FITTER History of total right hip replacement GLUCOSE - POINT OF CARE Routine 04/09/2024 12:18 PM [employer] EQUIPMENT FITTER GLUCOSE - POINT OF CARE Routine 04/09/2024 8:47 AM [employer] EQUIPMENT FITTER MAGNESIUM BLOOD Routine 04/09/2024 5:56 AM [employer]PPORT EQUIPMENT FITTER RENAL FUNCTION PANEL Routine 04/09/2024 5:56 AM [employer] SUPPORT EQUIPMENT FITTER CBC W AUTO DIFFERENTIAL Routine 04/09/2024 5:56 AM GR[employer] SUPPORT EQUIPMENT FITTER GLUCOSE - POINT OF CARE Routine 04/09/2024 4:15 AM [employer] SUPPORT EQUIPMENT FITTER GLUCOSE - POINT OF CARE Routine 04/09/2024 12:09 AM [employer] SU[employer] EQUIPMENT FITTER GLUCOSE - POINT OF CARE Routine 04/08/2024 8:47 PM [employer] SUPPORT EQUIPMENT FITTER GLUCOSE - POINT OF CARE Routine 04/08/2024 4:56 PM [employer] SUPPORT EQUIPMENT FITTER GLUCOSE - POINT OF CARE Routine 04/08/2024 11:19 AM [employer] EQUIPMENT FITTER GLUCOSE - POINT OF CARE Routine 04/08/2024 8:51 AM [employer] EQUIPMENT FITTER HEMOGLOBIN A1C Routine 04/08/2024 8:02 AM [employer]OUND SUPPORT EQUIPMENT FITTER TSH REFLEX FREE T4 Routine 04/08/2024 8: 02 AM [employer] EQUIPMENT FITTER MAGNESIUM BLOOD Routine 04/08/2024 8:02 AM GROUND SUPPORT EQUIPMENT FITTER RENAL FUNCTION PANEL Routine 04/08/2024 8:02 AM GROUND SUPPORT EQUIPMENT FITTER CBC W AUTO DIFFERENTIAL Routine 04/08/2024 8:02 AM [employer] SUPPORT EQUIPMENT FITTER GLUCOSE - POINT OF CARE Routine 04/08/2024 3:51 AM GROUND SUPPORT EQUIPMENT FITTER GLUCOSE - POINT OF CARE Routine 04/07/2024 11:55 PM GROUND SUPPORT EQUIPMENT FITTER URINALYSIS REFLEX TO MICROSCOPIC NO CULTURE Routine 04/07/2024 11:18 PM [employer] SU[employer] EQUIPMENT FITTER CULTURE URINE Routine 04/07/2024 11:18 PM [employer]OUND SUPPORT EQUIPMENT FITTER HELICOBACTER PYLORI ANTIGEN FECES Routine 04/07/2024 11:18 PM GROUND SUPPORT EQUIPMENT FITTER GLUCOSE - POINT OF CARE Routine 04/07/2024 7:15 PM GROUND SUPPORT EQUIPMENT FITTER URINE MICROSCOPIC ONLY REFLEX TO CULTURE STAT 04/07/2024 5:46 PM GROUND SUPPORT EQUIPMENT FITTER URINALYSIS REFLEX MICROSCOPIC REFLEX CULTURE STAT 04/07/2024 5:46 PM GROUND SUPPORT EQUIPMENT FITTER EGD Routine 04/07/2024 2:55 PM GROUND SUPPORT EQUIPMENT FITTER SD ED EGD FLEX TRANSORAL DX 04/07/2024 2:48 PM GROUND SUPPORT EQUIPMENT FITTER Emphysematous gastritis GLUCOSE - POINT OF CARE Routine 04/07/2024 2:48 PM GROUND SU[employer] EQUIPMENT [employer] CT ANGIO CHEST ABDOMEN PELVIS STAT 04/07/2024 10:13 AM GROUND SUPPORT EQUIPMENT FITTER Abdominal pain, generalized CULTURE BLOOD Timed 04/07/2024 5:47 AM GROUND SUPPORT EQUIPMENT FITTER CK BLOOD STAT 04/07/2024 5:36 AM GROUND SUPPORT EQUIPMENT FITTER PT-INR SLH STAT 04/07/2024 5:36 AM GROUND SUPPORT EQUIPMENT FITTER LIPASE BLOOD STAT 04/07/2024 5:36 AM GROUND SUPPORT EQUIPMENT FITTER LACTIC ACID BLOOD REFLEX TO REPEAT STAT 04/07/2024 5:36 AM GROUND SUPPORT EQUIPMENT FITTER COMPREHENSIVE METABOLIC PANEL STAT 04/07/2024 5:36 AM GROUND SUPPORT EQUIPMENT FITTER CBC W AUTO DIFFERENTIAL STAT 04/07/2024 5:36 AM GROUND SUPPORT EQUIPMENT FITTER CULTURE BLOOD Timed 04/07/2024 5:36 AM GROUND SUPPORT EQUIPMENT FITTER XR CHEST 1VW PORTABLE STAT 04/07/2024 5:16 AM GROUND SUPPORT EQUIPMENT FITTER Abdominal pain, generalized ENDOSCOPY, COLON, SCREENING Routine 09/13/2020 8:05 AM CDT from Last 3 Months or Most Recently Relevant to Health Maintenance Results * (ABNORMAL) GLUCOSE - POINT OF CARE (04/10/2024 12:24 PM GROUND SUPPORT EQUIPMENT FITTER) Only the most recent of18 resultswithin the time period is included. Pathologist [facility] Glucose WB/POC 205(H) 70 - 99 mg/dL 04/10/2024 12:55 PM [facility] Specimen Type Venous 04/10/2024 12:55 PM [facility] Blood BLOOD SPECIMEN / Unknown 04/10/2024 12:24 PM [employer] EQUIPMENT FITTER 04/10/2024 12:55 PM GROUND SUPPORT EQUIPMENT FITTER Fadi Arita DO LAB - POINT OF CARE ORDERABLES [address] [address], [facility] [phone] * (ABNORMAL) CBC W AUTO DIFFERENTIAL (04/10/2024 6:15 AM GROUND SUPPORT EQUIPMENT FITTER) Only the most recent of4 resultswithin the time period is included. [facility] WBC 9.4 4.0 - 10.7 x10E9/L 04/10/2024 6:55 AM [facility] RBC Count 4.01(L) 4.30 - 5.80 x10E12/L 04/10/2024 6:55 AM [facility] Hemoglobin 12.0(L) 13.3 - 17.5 g/dL 04/10/2024 6:55 AM [facility] Hematocrit 33.5(L) 38.7 - 51.1 % 04/10/2024 6:55 AM [facility] MCV 83.5 80.0 - 98.0 fL 04/10/2024 6:55 AM [facility] MCH 29.9 26.7 - 33.6 pg 04/10/2024 6:55 AM [facility] MCHC 35.8 31.7 - 36.3 g/dL 04/10/2024 6:55 AM [facility] RDW-CV 12.1 11.3 - 14.8 % 04/10/2024 6:55 AM [facility] Platelet Count 336 150 - 420 x10E9/L 04/10/2024 6:55 AM [facility] MPV 8.9 7.8 - 11.4 fL 04/10/2024 6:55 AM [facility] Preliminary Absolute Neutrophil 6.64 1.60 - 7.50 x10E9/L 04/10/2024 6:55 AM [facility] Neutrophil % 70.5 41.0 - 74.0 % 04/10/2024 6:55 AM [facility] Lymphocyte % 13.0(L) 17.0 - 47.0 % 04/10/2024 6:55 AM [facility] Monocyte % 7.7 3.0 - 11.0 % 04/10/2024 6:55 AM [facility] Eosinophil % 3.1 0.0 - 7.0 % 04/10/2024 6:55 AM [facility] Basophil % 1.3 0.0 - 1.6 % 04/10/2024 6:55 AM [facility] Immature Granulocytes % 4.4(H) 0.0 - 1.0 % 04/10/2024 6:55 AM [facility] Neutrophil Absolute 6.64 1.60 - 7.50 x10E9/L 04/10/2024 6:55 AM [facility] Lymphocyte Absolute 1.22 1.00 - 4.40 x10E9/L 04/10/2024 6:55 AM [facility] Monocyte Absolute 0.72 0.15 - 1.00 x10E9/L 04/10/2024 6:55 AM [facility] Eosinophil Absolute 0.29 0.00 - 0.60 x10E9/L 04/10/2024 6:55 AM [facility] Basophil Absolute 0.12 0.00 - 0.13 x10E9/L 04/10/2024 6:55 AM [facility] Blood BLOOD SPECIMEN / Unknown Lab Venipuncture / Unknown 04/10/2024 6:15 AM [facility] 04/10/2024 6:46 AM [facility] Bruce Cullen III, MD LAB - HEMATOLOG Y ORDERABLES [facility] [address] [place] [address], [facility] [phone] * (ABNORMAL) RENAL FUNCTION PANEL (04/10/2024 6:15 AM GROUND [employer] EQUIPMENT FITTER) Only the most recent of3 resultswithin the time period is included. BUN 6(L) 7 - 26 mg/dL 04/10/2024 7:15 AM [facility] Creatinine 0.60(L) 0.71 - 1.16 mg/dL 04/10/2024 7:15 AM [facility] Sodium 135(L) 136 - 145 mmol/L 04/10/2024 7:15 AM [facility] Potassium 2.7(L) 3.5 - 4.5 mmol/L 04/10/2024 7:15 AM [facility] Chloride 98 98 - 107 mmol/L 04/10/2024 7:15 AM [facility] CO2 25 22 - 29 mmol/L 04/10/2024 7:15 AM [facility] Glucose 132(H) 70 - 99 mg/dL 04/10/2024 7:15 AM [facility] Albumin 2.1(L) 3.4 - 5.0 g/dL 04/10/2024 7:15 AM [facility] Calcium 7.7(L) 8.4 - 10.2 mg/dL 04/10/2024 7:15 AM [facility] Phosphorus 3.1 2.8 - 5.1 mg/dL 04/10/2024 7:15 AM [facility] Anion Gap 12 6 - 16 04/10/2024 7:15 AM [facility] BUN/Creatinine Ratio 10 7 - 23 04/10/2024 7:15 AM [facility] Osmolality Calculated 279 275 - 295 mOsm/kg 04/10/2024 7:15 AM [facility] eGFR by CKD-EPI >90 >=90 mL/min/1.7 3 m2 04/10/2024 7:15 AM [facility] Blood BLOOD SPECIMEN / Unknown Lab Venipuncture / Unknown 04/10/2024 6:15 AM [employer]IPMENT FITTER 04/10/2024 6:46 AM [employer]OUND [employer] EQUIPMENT FITTER Bruce Cullen III, MD LAB - CHEMISTRY ORDERABLES Performing Organization Address [facility]/ZIP Co de Phone Number [address] [address], [facility] [phone] * MAGNESIUM BLOOD (04/10/2024 6:15 AM GROUND SUPPORT EQUIPMENT FITTER) Only the most recent of3 resultswithin the time period is included. Magnesium 1.7 1.6 - 2.6 mg/dL 04/10/2024 7:15 AM GROUND SUPPORT EQUIPMENT FITTER [facility] Blood BLOOD SPECIMEN / Unknown Lab Venipuncture / Unknown 04/10/2024 6:15 AM [employer] EQUIPMENT FITTER 04/10/2024 6:46 AM GROUND SUPPORT EQUIPMENT FITTER Bruce Cullen III, MD LAB - CHEMISTRY ORDERABLES Performing Organization Address [facility] Co de Phone Number [address] [address], [facility] [phone] * XR Hip Right 2Vw or More (04/09/2024 1:29 PM GROUND SUPPORT EQUIPMENT FITTER) Anatomical Region Laterality Modality Pelvis, Lower Extremity Digital Radiography 04/10/2024 2:03 AM [employer]OUND [employer] EQUIPMENT FITTER Impressions 04/10/2024 2:03 AM GROUND SUPPORT EQUIPMENT FITTER IMPRESSION: There is a right hip 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 There is no periprosthetic fracture or osteolysis. > Interpreting Provider: Brock Moody MD on 04/10/2024 2:03 AM Narrative 04/10/2024 2:03 AM GROUND [employer]PPORT EQUIPMENT FITTER PROCEDURE: ??XR HIP RIGHT 2VW OR MORE DATE/TIME OF EXAM: ??04/09/2024 1:29 PM CLINICAL INFORMATION: None relevant/not provided if blank. Indication: Z96.641: History of total right hip replacement Additional History: COMPARISON: None. Procedure Note Brock Moody MD - 04/10/2024 PROCEDURE: XR HIP RIGHT 2VW OR MORE DATE/TIME OF EXAM: 04/09/2024 1:29 PM CLINICAL INFORMATION: None relevant/not provided if blank. Indication: Z96.641: History of total right hip replacement Additional History: COMPARISON: None. IMPRESSION: There is a right hip 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 Thereis no periprosthetic fracture or osteolysis. > Interpreting Provider: Brock Moody MD on 04/10/2024 2:03 AM Gabby Katz PA-C DIAGNOSTIC I MAGING ORDERABLES * TSH REFLEX FREE T4 (04/08/2024 8:02 AM GROUND SUPPORT EQUIPMENT FITTER) TSH 2.481 0.350 - 4.940 uIU/mL 04/08/2024 9:26 AM [facility] Blood BLOOD SPECIMEN / Unknown Lab Venipuncture / Unknown 04/08/2024 8:02 AM [employer] EQUIPMENT FITTER 04/08/2024 8:41 AM [employer] EQUIPMENT FITTER Bruce Cullen III, MD LAB - CHEMISTRY ORDERABLES [facility] [address] [place] [address], [facility] [phone] * (ABNORMAL) HEMOGLOBIN A1C (04/08/2024 8:02 AM GROUND SU[employer] EQUIPMENT FITTER) Hemoglobin A1c 9.4(H) <=5.6 % 04/08/2024 1:21 PM [facility] Estimated Average Glucose 223 mg/dL 04/08/2024 1:21 PM [facility] Comment: HbA1c Interpretation: Normal : < 5.7% Pre-diabetes: 5.7-6.4% Diabetes: Equal to or greater than 6.5% Test results diagnostic of diabetes should be repeated for confirmation. Treatment target values recommended by ADA and other clinical organizations should be used to evaluate metabolic control in patients. Reference: [place] [employer], Standards of Care in Diabetes -2020 In patients 70 years and older consider HbA1c target range of 7.0-7.5% (Reference: Sarwat Rodrigues et al. JAMDA. 2012) The Sebia assay for the measurement of HbA1c is a National Glycohemoglobin Standardization Program (NGSP) certified method. Blood BLOOD SPECIMEN / Unknown Lab Venipuncture / Unknown 04/08/2024 8:02 AM GROUND [employer] EQUIPMENT FITTER 04/08/2024 8:40 AM GROUND SUPPORT EQUIPMENT FITTER Bruce Cullen III, MD LAB - CHEMISTRY ORDERABLES Performing Organization Address [facility]/ZIP Co de Phone Number [facility] [address] [place] [address], [facility] [phone] * HELICOBACTER PYLORI ANTIGEN FECES (04/07/2024 11:18 PM GROUND SUPPORT EQUIPMENT FITTER) Helicobacter pylori Antigen Stool Negative Negative 04/09/2024 11:12 PM GROUND SUPPORT EQUIPMENT FITTER [facility] ([facility]) Comment: Performed By: [employer] [address] [place] [address] Field Marketing Associate: Vern Montiel MD, PhD CLIA Number: [id number] Stool STOOL SPECIMEN / Unknown Collection / Unknown 04/07/2024 11:18 PM [employer] EQUIPMENT FITTER 04/07/2024 11:22 PM GROUND SUPPORT EQUIPMENT FITTER Emanuel Dempsey DO LAB - MICROBIOLOGY O RDERABLES Performing Organization Address [facility] Co de Phone Number [facility] [facility]) [address] [place] [address] * (ABNORMAL) URINALYSIS REFLEX TO MICROSCOPIC NO CULTURE (04/07/2024 11:18 PM GROUND SUPPORT EQUIPMENT FITTER) Color UA Jennifer(A) Straw, Yellow 04/07/2024 11:38 PM GROUND SUPPORT EQUIPMENT FITTER [facility] Clarity UA Slt Cloudy(A) Clear 04/07/2024 11:38 PM GROUND SUPPORT EQUIPMENT FITTER [facility] Specific Parmelee UA 1.040(H) 1.005 - 1.030 04/07/2024 11:38 PM GROUND SUPPORT EQUIPMENT FITTER [facility] pH UA 5.0 5.0 - 8.0 pH 04/07/2024 11:38 PM GROUND SUPPORT EQUIPMENT FITTER [facility] Protein UA 1+(A) Negative 04/07/2024 11:38 PM GROUND SUPPORT EQUIPMENT FITTER [facility] Glucose UA 1+(A) Negative 04/07/2024 11:38 PM [facility] Ketone UA 2+(A) Negative 04/07/2024 11:38 PM [facility] Bilirubin UA Negative Negative 04/07/2024 11:38 PM [facility] Blood UA 1+(A) Negative 04/07/2024 11:38 PM [facility] Nitrite UA Negative Negative 04/07/2024 11:38 PM [facility] Leukocyte Esterase Negative Negative 04/07/2024 11:38 PM [facility] Urobilinogen UA 4.0(A) Negative mg/dL 04/07/2024 11:38 PM [facility] RBC UA 11-20(A) None Seen, 0-2, 3-5 /HPF 04/07/2024 11:38 PM [facility] WBC UA 0-5 None Seen, 0-5 /HPF 04/07/2024 11:38 PM [facility] Squamous Epithelial Cells UA 0-2 None Seen, 0-2, 3-5 /HPF 04/07/2024 11:38 PM [facility] Mucus UA 2+ /LPF 04/07/2024 11:38 PM [facility] Urine URINE SPECIMEN OBTAINED VIA [employer] URINARY CATHETER / Unknown Collection / Unknown 04/07/2024 11:18 PM [employer] EQUIPMENT FITTER 04/07/2024 11:23 PM GROUND SUPPORT EQUIPMENT FITTER Narrative [facility] - 04/07/2024 11:38 PM GROUND SUPPORT EQUIPMENT FITTER Emanuel Dempsey DO LAB - URINALYSIS ORD ERABLES Performing Organization Address City/State/[facility] Co de Phone Number [address] [phone] [phone] * CULTURE URINE (04/07/2024 11:18 PM GROUND [employer]PPORT EQUIPMENT FITTER) Culture Urine No growth (<100 CFU/mL) ANTONIO 04/09/2024 6:12 AM GROUND SUPPORT EQUIPMENT FITTER [facility] Urine URINE SPECIMEN OBTAINED [employer] URINARY CATHETER / Unknown Collection / Unknown 04/07/2024 11:18 PM [employer] SU[employer] EQUIPMENT FITTER 04/07/2024 11:23 PM GROUND SUPPORT EQUIPMENT FITTER Emanuel Roselyn DO LAB - MICROBIOLOGY O RDERABLES [facility] [address] [place] [address], [facility] [phone] * (ABNORMAL) URINE MICROSCOPIC ONLY REFLEX TO CULTURE (04/07/2024 5:46 PM [employer] EQUIPMENT FITTER) Reflex Status Culture not indicated 04/07/2024 6:08 PM [facility] RBC UA 21-50(A) None Seen, 0-2, 3-5 /HPF 04/07/2024 6:08 PM [facility] WBC UA 6-10(A) None Seen, 0-5 /HPF 04/07/2024 6:08 PM [facility] Bacteria UA 1+(A) None /HPF 04/07/2024 6:08 PM [facility] Squamous Epithelial Cells UA 0-2 None Seen, 0-2, 3-5 /HPF 04/07/2024 6:08 PM [facility] Mucus UA 1+ /LPF 04/07/2024 6:08 PM [facility] Amorphous Crystals Rare(A) None /HPF 04/07/2024 6:08 PM [facility] Urine URINE SPECIMEN OBTAINED VIA [employer] / Unknown Collection / Unknown 04/07/2024 5:46 PM [employer] 04/07/2024 5:55 PM [employer] [facility] - 04/07/2024 6:08 PM [employer] EQUIPMENT FITTER Jamaal White DO LAB - URINALYSIS ORD ERABLES [facility] [address] [place] [address], [place] [phone] * (ABNORMAL) URINALYSIS REFLEX MICROSCOPIC REFLEX CULTURE (04/07/2024 5:46 PM GROUND SUPPORT EQUIPMENT FITTER) Color UA Jennifer(A) Straw, Yellow 04/07/2024 6:09 PM [facility] Clarity UA Slt Cloudy(A) Clear 04/07/2024 6:09 PM [facility] Specific Parmelee UA >1.060(H) 1.005 - 1.030 04/07/2024 6:09 PM [facility] Comment:Specific gravity res ults confirmed by refractometer. pH UA 5.0 5.0 - 8.0 pH 04/07/2024 6:09 PM [facility] Protein UA 2+(A) Negative 04/07/2024 6:09 PM [facility] Glucose UA 1+(A) Negative 04/07/2024 6:09 PM [facility] Ketone UA 1+(A) Negative 04/07/2024 6:09 PM [facility] Bilirubin UA Negative Negative 04/07/2024 6:09 PM [facility] Blood UA 1+(A) Negative 04/07/2024 6:09 PM [facility] Nitrite UA Negative Negative 04/07/2024 6:09 PM [facility] Leukocyte Esterase Negative Negative 04/07/2024 6:09 PM [facility] Urobilinogen UA 4.0(A) Negative mg/dL 04/07/2024 6:09 PM [facility] Urine URINE SPECIMEN OBTAINED VIA INDWELLING URINARY CATHETER / Unknown Collection / Unknown 04/07/2024 5:46 PM GROUND SUPPORT EQUIPMENT FITTER 04/07/2024 5:55 PM [facility] - 04/07/2024 6:09 PM GROUND SUPPORT EQUIPMENT FITTER Jamaal White DO LAB - URINALYSIS ORD ERABLES Performing Organization Address City/State/[facility] Co de Phone Number [address] [address], [facility] [phone] * EGD (04/07/2024 2:55 PM GROUND SUPPORT EQUIPMENT FITTER) Report Endoscopy POC Endoscopy Department Report _ Patient Name: Luis Daniel Ford ?Procedure Date: 04/07/2024 2:55 PM ?Date of : 1955 Classification: Inpatient ? Gender: Male Ethnicity: Not or ? Race: White _ Providers: ?Vel Walters (Fellow) Referring MD: ? Procedure: ?Upper GI endoscopy Indications: ?Abnormal CT of the GI tract Medications: ?Monitored Anesthesia Care Description of Procedure: After obtaining informed consent, the endoscope was ?passed under direct vision. Throughout the ?procedure, the patient's blood pressure, pulse, and ?oxygen saturations were monitored continuously. The ?Endoscope was introduced through the mouth, and ?advanced to the second part of duodenum. The upper ?GI endoscopy was accomplished without difficulty. ?The patient tolerated the procedure well. ? Findings: ? LA Grade D (one or more mucosal breaks involving at least 75% of ? esophageal circumference) esophagitis with no bleeding was found 26 to ? 44 cm from the incisors. ? Two non-obstructing non-bleeding cratered gastric ulcers of significant ? severity with no stigmata of bleeding were found in the gastric body and ? in the gastric antrum. The largest lesion was 30 mm in largest ? dimension. There is no evidence of perforation. ? Retained fluid was found in the gastric body. This was suctioned. ? Diffuse severe inflammation characterized by congestion (edema), ? erythema, friability, granularity and mucus was found in the gastric ? body. 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 ? Diffuse moderately erythematous and atrophic mucosa without active ? bleeding and with no stigmata of bleeding was found in the duodenal ? bulb, in the first portion of the duodenum and in the second portion of ? the duodenum. ? Estimated Blood Loss: ? Estimated blood loss: none. Impression: ? - LA Grade D esophagitis with no bleeding. ?- Non-obstructing non-bleeding gastric ulcers with ?no stigmata of bleeding. There is no evidence of ?perforation. ?- Retained gastric fluid. ?- Gastritis. ?- Erythematous duodenopathy. ?- No specimens collected. Recommendation: ? - [facility] for [facility]. ?- NPO. ?- Continue present medications. ?- Use Protonix (pantoprazole) 40 mg IV daily for 3 ?days. ?- Use Prilosec (omeprazole) 40 mg PO BID or ?vonoprazon 20 mg qd for 12 weeks on discharge. ?- Perform an H. pylori stool antigen (HpSA) test. ?- Repeat upper endoscopy in 3 months to evaluate ?the response to therapy and for biopsy if indicated. ?- No NG/OG tube placement. ?- Rest of recommendations per GI consult team. ? Attending Participation: ??I was present and participated during the entire ?procedure, including non-galeano portions. ? Procedure Code(s): ? --- Professional --- ? 78739, Esophagogastroduod enoscopy, flexible, transoral; diagnostic, ? including collection of specimen(s) by brushing or washing, when ? performed (separate procedure) Diagnosis Code(s): ?--- Professional --- ?K31.89, Other diseases of stomach and duodenum ?K25.9, Gastric ulcer, unspecified as acute or ?chronic, without hemorrhage or perforation ?K20.90, Esophagitis, unspecified without bleeding ?R93.3, Abnormal findings on diagnostic imaging of ?other parts of digestive tract CPT copyright 2021 [employer]. All rights reserved. The codes documented in this report are preliminary and upon design technician review may be revised to meet current compliance requirements. Erasto Zimmerman Carlitos, 04/07/2024 3:31:30 PM Note Initiated On: 04/07/2024 2:55 PM Number of Addenda: 0 ? [facility] ? [address] [place], [place] [id number] [place] [address] PROVATION 04/07/2024 2:55 PM GROUND SUPPORT EQUIPMENT FITTER Emanuel Dempsey DO GI PROCEDURE ORDERAB LES [facility] * CT Angio Chest Abdomen Pelvis (04/07/2024 10:13 AM GROUND SUPPORT EQUIPMENT FITTER) Anatomical Region Laterality Modality Chest, Abdomen, Pelvis Computed Tomography 04/07/2024 10:3 5 AM GROUND SUPPORT EQUIPMENT FITTER Impressions 04/07/2024 11:33 AM GROUND SUPPORT EQUIPMENT FITTER Impression: 1.The stomach is distended with air within the gastric fundus wall suggestive of gastric emphysema. No air in the portal vein or free intraperitoneal air. ?? 2.There is no occlusion or significant stenosis in the celiac or superior mesenteric artery branches. 3.There is a stool ball in the rectum measuring up to 8.5 cm right stranding of the mesorectal fat, may be suggestive of stercoral colitis. 4.Distended gallbladder with sludge and millimetric stones. ??Clinical evaluation is suggested to rule out cholecystitis. 5.Bilateral small pleural effusions with associated atelectasis. 6.Mild pericardial fluid measuring up to 13 mm. > Dictated by Karthikeyan Barreto MD, (fixed income trading vice president). I, Tara Souza MD have personally reviewed and interpreted this examination/study. 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 Findings: Lower Neck and Axillae: Normal. Lungs: No pulmonary parenchymal or airway process is present. No suspicious pulmonary nodules are identified. Bilateral small pleural effusions with associated atelectasis. No pneumothorax. There is a 4 mm nodule in the right middle lobe (series 12 image 49) Heart and Pericardium: The cardiac chambers are normal in size. Mild pericardial fluid measuring up to 13 mm (series 8 image 447). The coronary arteries are extensively atherosclerotic. Mediastinum and Ana Paula: No enlarged lymph nodes are present. Thoracic Vasculature: The aorta and its branch vessels are atherosclerotic. No pulmonary embolism. Liver: A subcentimeter hypoattenuating hepatic lesion is too small to characterize, but likely represents a hepatic cyst. Gallbladder and Bile Ducts: Distended gallbladder. Hyperattenuating material within the gallbladder likely represents sludge and millimetric gallbladder stones. ??Clinical evaluation is suggested to rule out cholecystitis. Spleen: Normal. Pancreas: Normal. Adrenals: Normal. Kidneys: There is a 4.4 cm hypoattenuating lesion in the superior pole of the left kidney, likely cyst. There is contrast seen in the collecting system on the noncontrast phase imaging, likely retained contrast from exam performed on 04/06/2024. Gastrointestinal: There is no free air in the abdomen. The stomach is distended with air-fluid level and air within the gastric fundus wall suggestive of pneumatosis. There is a stool ball in the rectum measuring up to 8.5 cm. Otherwise the visualized small and large bowel loops are unremarkable. Normal appendix. Mesentery/Peritoneum/Retroperitoneum: Normal. Bladder: A Streeter catheter terminates within a decompressed urinary bladder. Reproductive Organs: The prostate is normal. Bones: Bone windows demonstrate no suspicious lytic or blastic lesions. Postsurgical changes from right total hip arthroplasty. Soft tissues: There is a small fat-containing umbilical hernia. There is mild body wall edema. Vasculature: Abdominal aorta: Atherosclerotic without significant focal stenosis or aneurysm. Celiac axis and major branches: Atherosclerotic with mild multifocal stenoses. There is a replaced right hepatic artery arising from the aorta. Superior mesenteric artery: Patent without significant focal stenosis. Inferior mesenteric artery: Patent without significant focal stenosis. Right renal artery: Atherosclerotic with mild multifocal stenoses. Left renal artery: Atherosclerotic with mild multifocal stenoses. Right common iliac artery: Patent without significant focal stenosis. Right internal iliac artery: Atherosclerotic with moderate multifocal stenoses. Right external iliac artery: Patent without significant focal stenosis. Right common femoral artery: Patent without significant focal stenosis. Right profunda femoris artery: Patent without significant focal stenosis. Right superficial femoral artery: Atherosclerotic with mild multifocal stenoses. Left common iliac artery: Atherosclerotic with mild multifocal stenoses. Left internal iliac artery: Atherosclerotic with moderate multifocal stenoses. Left external iliac artery: Patent without significant focal stenosis. Left common femoral artery: Atherosclerotic with mild multifocal stenoses. Left profunda femoris artery: Atherosclerotic with mild multifocal stenoses. Left superficial femoral artery: Patent without significant focal stenosis. Procedure Note Tara Souza MD - 04/07/2024 PROCEDURE: CT ANGIO CHEST ABDOMEN PELVIS, DATE/TIME OF EXAM: 04/07/2024 10:13 AM, LOCATION [facility] INDICATION: R10.84: Abdominal pain, generalized ADDITIONAL CLINICAL INFORMATION: Ordering Provider Reason For Exam: emphysematous gastritis Technologist Note: Additional: COMPARISON: Images from CT chest abdomen and pelvis with contrast dated 04/06/2024 TECHNIQUE: CT of the chest, abdomen, and pelvis was performed followingthe uneventful administration of 100 mL of Isovue 370 intravenous contrast according to standard protocol. Findings: Lower Neck and Axillae: Normal. Lungs: No pulmonary parenchymal or airway process is present. No suspicious pulmonary nodules are identified. Bilateral small pleural effusions with associated atelectasis. No pneumothorax. There is a 4 mm nodule in the right middle lobe (series 12 image 49) Heart and Pericardium: The cardiac chambers are normal in size. Mild pericardial fluidmeasuring up to 13 mm (series 8 image 447). The coronary arteries are extensively atherosclerotic. Mediastinum and Ana Paula: No enlarged lymph nodes are present. Thoracic Vasculature: The aorta and its branch vessels are atherosclerotic. No pulmonary embolism. Liver: A subcentimeter hypoattenuating hepatic lesion is too small to characterize, but likely represents a hepatic cyst. Gallbladder and Bile Ducts: Distended gallbladder. Hyperattenuating material within the gallbladder likely represents sludge and millimetric gallbladder stones. Clinical evaluation is suggested to rule out cholecystitis. Spleen: Normal. Pancreas: Normal. Adrenals: Normal. Kidneys: There is a 4.4 cm hypoattenuating lesion in the superior pole of theleft kidney, likely cyst. There is contrast seen in the collecting system onthe noncontrast phase imaging, likely retained contrast from exam performedon 04/06/2024. Gastrointestinal: There is no free air in the abdomen. The stomach is distended with air-fluid level and air within the gastric fundus wall suggestive of pneumatosis. There is a stool ball in the rectum measuring up to 8.5 cm. Otherwise the visualized small and large bowel loops are unremarkable. Normal appendix. Mesentery/Peritoneum/Retroperitoneum: Normal. Bladder: A Streeter catheter terminates within a decompressed urinary bladder. Reproductive Organs: The prostate is normal. Bones: Bone windows demonstrate no suspicious lytic or blastic lesions. Postsurgical changes from right total hip arthroplasty. Soft tissues: There is a small fat-containing umbilical hernia. There is mild bodywall edema. Vasculature: Abdominal aorta: Atherosclerotic without significant focal stenosis or aneurysm. Celiac axis and major branches: Atherosclerotic with mild multifocal stenoses. There is a replaced right hepatic artery arising from theaorta. Superior mesenteric artery: Patent without significant focal stenosis. Inferior mesenteric artery: Patent without significant focal stenosis. Right renal artery: Atherosclerotic with mild multifocal stenoses. Left renal artery: Atherosclerotic with mild multifocal stenoses. Right common iliac artery: Patent without significant focal stenosis. Right internal iliac artery: Atherosclerotic with moderate multifocal stenoses. Right external iliac artery: Patent without significant focal stenosis. Right common femoral artery: Patent without significant focal stenosis. Right profunda femoris artery: Patent without significant focalstenosis. Right superficial femoral artery: Atherosclerotic with mild multifocal stenoses. Left common iliac artery: Atherosclerotic with mild multifocal stenoses. Left internal iliac artery: Atherosclerotic with moderate multifocal stenoses. Left external iliac artery: Patent without significant focal stenosis. Left common femoral artery: Atherosclerotic with mild multifocalstenoses. Left profunda femoris artery: Atherosclerotic with mild multifocal stenoses. Left superficial femoral artery: Patent without significant focalstenosis. Impression: 1.The stomach is distended with air within the gastric fundus wall suggestive of gastric emphysema. No air in the portal vein or free intraperitoneal air. 2.There is no occlusion or significant stenosis in the celiac orsuperior mesenteric artery branches. 3.There is a stool ball in the rectum measuring up to 8.5 cm right stranding of the mesorectal fat, may be suggestive of stercoral colitis. 4.Distended gallbladder with sludge and millimetric stones. Clinical evaluation is suggested to rule out cholecystitis. 5.Bilateral small pleural effusions with associated atelectasis. 6.Mild pericardial fluid measuring up to 13 mm. > Dictated by Karthikeyan Barreto MD, (fixed income trading vice president). I, Tara Souza MD have personally reviewed and interpreted this examination/study. > Interpreting Provider: Tara Souza MD on 04/07/2024 11:33 AM Rachel Jay MD CT ORDERABLES * (ABNORMAL) PT-INR [facility] (04/07/2024 5:36 AM GROUND SUPPORT EQUIPMENT FITTER) PT 17.1(H) 12.1 - 14.8 Seconds 04/07/2024 6:56 AM GROUND SUPPORT EQUIPMENT FITTER [facility] INR 1.4 See Comment 04/07/2024 6:56 AM GROUND SUPPORT EQUIPMENT FITTER [facility] Comment:The suggested therap eutic range for standard coumadin (warfarin) therapy is an INR of 2.0-3.0. For high-risk patients (Mechanical Mitral Valve Prosthesis, etc.), the suggested prophylactic therapeutic range is an INR of 2.5-3.5. Blood BLOOD SPECIMEN / Unknown Venipuncture / Unknown 04/07/2024 5:36 AM GROUND SUPPORT EQUIPMENT FITTER 04/07/2024 6:31 AM GROUND SUPPORT EQUIPMENT FITTER Jamaal White DO LAB - COAGULATION OR DERABLES [address] [address], [facility] [phone] * LACTIC ACID BLOOD REFLEX TO REPEAT (04/07/2024 5:36 AM GROUND SUPPORT EQUIPMENT FITTER) Lactic Acid-Stat 0.8 <=2.0 mmol/L 04/07/2024 7:00 AM [facility] Blood BLOOD SPECIMEN / Unknown Venipuncture / Unknown 04/07/2024 5:36 AM GROUND SUPPORT EQUIPMENT FITTER 04/07/2024 6:31 AM GROUND SUPPORT EQUIPMENT FITTER Jamaal White DO LAB - CHEMISTRY ORDE RABLES [address] [address], [facility] [phone] * (ABNORMAL) COMPREHENSIVE METABOLIC PANEL (04/07/2024 5:36 AM GROUND SUPPORT EQUIPMENT FITTER) Pathologist [facility] BUN 17 7 - 26 mg/dL 04/07/2024 7:02 AM [facility] Creatinine 0.65(L) 0.71 - 1.16 mg/dL 04/07/2024 7:02 AM [facility] Sodium 134(L) 136 - 145 mmol/L 04/07/2024 7:02 AM [facility] Potassium 4.5 3.5 - 4.5 mmol/L 04/07/2024 7:02 AM [facility] Chloride 103 98 - 107 mmol/L 04/07/2024 7:02 AM [facility] CO2 23 22 - 29 mmol/L 04/07/2024 7:02 AM [facility] Glucose 193(H) 70 - 99 mg/dL 04/07/2024 7:02 AM [facility] Calcium 8.1(L) 8.4 - 10.2 mg/dL 04/07/2024 7:02 AM [facility] Protein Total 5.2(L) 6.0 - 8.3 g/dL 04/07/2024 7:02 AM [facility] Albumin 2.1(L) 3.4 - 5.0 g/dL 04/07/2024 7:02 AM [facility] Bilirubin Total 0.7 0.2 - 1.2 mg/dL 04/07/2024 7:02 AM [facility] Alkaline Phosphatase 58 40 - 150 U/L 04/07/2024 7:02 AM [facility] ALT 11 5 - 55 U/L 04/07/2024 7:02 AM [facility] AST 13 5 - 34 U/L 04/07/2024 7:02 AM [facility] Anion Gap 8 6 - 16 04/07/2024 7:02 AM [facility] BUN/Creatinine Ratio 26(H) 7 - 23 04/07/2024 7:02 AM [facility] Osmolality Calculated 285 275 - 295 mOsm/kg 04/07/2024 7:02 AM [facility] Albumin/Globulin Ratio 0.7(L) 1.1 - 2.3 04/07/2024 7:02 AM [facility] eGFR by CKD-EPI >90 >=90 mL/min/1.7 3 m2 04/07/2024 7:02 AM [facility] Blood BLOOD SPECIMEN / Unknown Venipuncture / Unknown 04/07/2024 5:36 AM GROUND SUPPORT EQUIPMENT FITTER 04/07/2024 6:31 AM GROUND SUPPORT EQUIPMENT FITTER Jamaal White DO LAB - CHEMISTRY ROBERTO POSADA [facility] Organization Address City/State/[facility] de Phone Number [facility] [address] [place] [address], [facility] [phone] * (ABNORMAL) LIPASE BLOOD (04/07/2024 5:36 AM GROUND SUPPORT EQUIPMENT FITTER) Lipase 4(L) 8 - 78 U/L 04/07/2024 7:02 AM [facility] Blood BLOOD SPECIMEN / Unknown Venipuncture / Unknown 04/07/2024 5:36 AM GROUND SUPPORT EQUIPMENT FITTER 04/07/2024 6:31 AM GROUND SUPPORT EQUIPMENT FITTER Narrative [facility] - 04/07/2024 7:02 AM GROUND SUPPORT EQUIPMENT FITTER Lipase results from the [employer] Alinity analyzer may not be comparable with other methodologies. Jamaal White DO LAB - CHEMISTRY ROBERTO POSADA [facility] [address] [place] [address], [place] [phone] * (ABNORMAL) CK BLOOD (04/07/2024 5:36 AM GROUND SUPPORT EQUIPMENT FITTER) CK Total 25(L) 30 - 200 U/L 04/07/2024 7:02 AM GROUND SUPPORT EQUIPMENT FITTER [facility] Blood BLOOD SPECIMEN / Unknown Venipuncture / Unknown 04/07/2024 5:36 AM GROUND SUPPORT EQUIPMENT FITTER 04/07/2024 6:31 AM GROUND SUPPORT EQUIPMENT FITTER Jamaal White DO LAB - CHEMISTRY ROBERTO POSADA Performing Organization Address [facility]/ZIP Co de Phone Number [address] [address], [place] [phone] * XR CHEST 1VW PORTABLE (04/07/2024 5:16 AM GROUND SUPPORT EQUIPMENT FITTER) Anatomical Region Laterality Modality Chest Digital Radiogra phy 04/07/2024 6:04 AM GROUND SUPPORT EQUIPMENT FITTER Impressions 04/07/2024 9:31 AM GROUND SUPPORT EQUIPMENT FITTER IMPRESSION: Low lung volumes bilaterally with bronchovascular crowding. Likely trace pleural effusions bilaterally. Retrocardiac opacity may represent atelectasis and/or airspace disease. No pneumothorax. Cardiomediastinal silhouette is likely normal for portable semierect technique. No acute displaced rib fracture is identified. There is a large lucent oval structure below the diaphragm which could represent free air or distended stomach. There appears to be linear lucencies along the stomach/loop of bowel wall which may represent pneumatosis. These findings were discussed in detail with the patient's care provider, Dr. Montanez by Dr. Potter via telephone at 6:24 AM on 04/07/2024 with readback comprehension and verification. > Dictated by Pablo Potter DO (Container Filler), 04/07/2024 6:23 AM. INessa MD have personally reviewed and interpreted this examination/study. > Interpreting Provider: Nessa Hickman MD on 04/07/2024 9:31 AM Narrative 04/07/2024 9:31 AM GROUND SUPPORT EQUIPMENT FITTER PROCEDURE: ??XR CHEST 1VW PORTABLE, DATE/TIME OF EXAM: ??04/07/2024 5:16 AM, LOCATION ??[facility] INDICATION: R10.84: Abdominal pain, generalized ADDITIONAL CLINICAL INFORMATION: Ordering Provider Reason For Exam: ??gastric/esophageal perf suspected COMPARISON: None. Procedure Note Nessa Hickman MD - 04/07/2024 PROCEDURE: XR CHEST 1VW PORTABLE, DATE/TIME OF EXAM: 04/07/2024 5:16AM, LOCATION [facility] INDICATION: R10.84: Abdominal pain, generalized ADDITIONAL CLINICAL INFORMATION: Ordering Provider Reason For Exam: gastric/esophageal perf suspected COMPARISON: None. IMPRESSION: Low lung volumes bilaterally with bronchovascular crowding. Likely trace pleural effusions bilaterally. Retrocardiac opacity may represent atelectasis and/or airspace disease. No pneumothorax. Cardiomediastinal silhouette is likely normal for portable semierect technique. No acute displaced rib fracture is identified. There is a large lucent oval structure below the diaphragm which could represent free air ordistended stomach. There appears to be linear lucencies along the stomach/loop of bowel wall which may represent pneumatosis. These findings were discussed in detail with the patient's careprovider, Dr. Montanez by Dr. Potter via telephone at 6:24 AM on 04/07/2024 withreadback comprehension and verification. > Dictated by Pablo Potter DO (Container Filler), 04/07/2024 6:23 AM. INessa MD have personally reviewed and interpreted this examination/study. > Interpreting Provider: Nessa Hickman MD on 04/07/2024 9:31 AM Jamaal White DO DIAGNOSTIC IMAGING O RDERABLES * ENDOSCOPY, COLON, SCREENING (09/13/2020 8:05 AM [...] the physician, the nurse and the ? manager statistical in the procedure room. Mental Status ? [...] Procedure Code(s): ? --- Professional --- ? 59907, Colonoscopy, flexible; with removal of tumor(s), polyp(s), or ? other lesion(s) by snare technique ? --- Technical --- ? 66678, Colonoscopy, flexible; with removal of tumor(s), polyp(s), [...] abscess ? without bleeding CPT copyright 2019 [employer]. All rights reserved. The codes documented in this report are preliminary and upon design technician review may be revised to meet current compliance requirements. Dr. Tr Fofana MD Tr Fofana MD 09/13/2020 9:33:03 AM This report has been signed electronically. Number of Addenda: 0 Note Initiated On: 09/13/2020 8:05 AM [facility] ENDOS[facility] 09/13/2020 8:05 AM CDT Tr Fofana MD GI PROCEDURE ORDERA BLES Performing Organization Address City/State/[facility] Co de Phone Number [facility] [place] [address] from Last 3 Months or Most Recently Relevant to Health Maintenance Advance Directives * Full Code (Latest Code Status on File) Date Activated Date Inactivated Comments 04/07/2024 12:01 PM * Full Code Date Activated Date Inactivated Comments 01/09/2016 12:26 AM 01/10/2016 7:40 PM Care Teams Director Of Recruitment Relationship Specialty Start [place] [id number] [address] [facility] [address] [place] [phone] PCP - General Family Medicine 04/07/24
--- OUTSIDE RECORDS SUMMARY | 2024-04-10 17:12 | XMS_ITS | Encounter Summary ---
Author Organization [facility] Address [address] [place] [address] Care Team Providers Care Cafeteria Aide Name Role Phone Chuckie Chavira MD, Sebastian Grace Primary Care Provid er Reason for Visit * Auth/Cert (Routine) Specialty Diagnoses / Procedures Referred By Contac t Referred To Contact Diagnoses gastritis Referral ID Status Reason Start Date Expiration Date Visits Re quested Visits Authorized [id number] 1 1 Encounter Details Date Type Department Care Team (Late st Contact Info) Description 04/07/2024 3:01 PM LEATHER WORKER Anesthesia Event [facility] [address] [place] [phone] Kimberly Guzman MD [address] [facility] [place] [phone] Raisa Sunshine, CONTINUOUS MINING MACHINE OPERATOR-NUT ROASTER HELPER [address] [place], [place] [id number] Anesthesia Record Procedure Summary Procedure Name Responsible Anesthesiologist Anesthesia Start Time Anesthesia Stop Time EGD (Esophagus) Kimberly Guzman MD 04/07/24 1501 1521 Events Date Time Event Comment 04/07/2024 1446 1453 Pt In Room 1453 An Start Data 1455 PT Reassessment 1455 Timeout Anesthesia part icipated in timeout at the time documented in the record by nursing. 1458 Induction 1459 Anes Ready 1501 An Start 1502 Proc Start 1512 Proc Stop 1513 An Emergence 1521 an stop data 1521 Pt out of Room 1521 An Stop Meds Name Total lidocaine PF 2% 50 mg propofol 200mg/20mL injection 100 mg propofol 500 mg/50 mL injection 215.48 m g phenylephrine 100 mcg/mL syringe 200 mcg NS (0.9% NaCl) 0 mL * Agents Name Insp. N2O Exp. N2O O2 Flow - Auxiliary O2 * Blood No blood administrations on file. Lines, Drains, and Airways Type Details Placement Removal Peripheral IV Date: 04/07/24; Orientation: Right; Location: Antecubital; Gauge: 20 G 04/07/24 0000 by Cooper Valente RN Urethral Catheter 04/06/24; 1258; 16; 10 mL; 04/08/24; 1622 04/06/24 1258 by Lucia Hui RN 04/08/24 1622 by Dede Watson RN Peripheral IV Date: 04/07/24; Orientation: Anterior, Left; Location: Forearm; Gauge: 22 G 04/07/24 0000 by Cooper Valente RN 04/09/24 0420 by Dede Pruett RN documented in this encounter Social History [...] medical care, and heating? Patient declined 04/07/2024 [facility] Occupat ional Health - Occupational Stress [...] or rent on time? Patient declined 04/07/19 In the past 12 months, how m any times have you moved where you were living? 0 04/07/2024 At any time in the past 12 m ont, were you homeless or living in a group home (including now)? Patient declined 04/07/2024 Sex and Gender Information Value Date Recorded Sex Assigned at Not on file Gender Identity Not on file Sexual Orientation Not on file documented as of this encounter Functional Status Functional Status Response Date of Assess ment Is person deaf or have serious hearing difficult y? No 04/07/2024 Is person blind or have serious difficulty seein g? Yes 04/07/2024 Does person have serious dif ficulty walking/climbing stairs? Yes 04/07/2024 Does person have difficulty dressing/bathing? No 04/07/2024 Does person have difficulty doing errands alone? No 04/07/2024 Cognitive Status Response Date of Assessm ent Does person have difficulty concentrating/remembering/making decisions? 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 HER WORKER * Kimberly Guzman MD - 04/07/2024 1:33 PM CST ANESTHESIA PREOPERATIVE EVALUATION NOTE Procedure: EGD (Esophagus) Vitals: Patient Vitals for the past 6 hrs: BP Pulse Resp SpO2 04/07/24 1315 120/72 103 10 94 % 04/07/24 1103 112/71 86 16 95 % 04/07/24 1033 109/75 92 23 93 % 04/07/24 0943 108/66 99 25 93 % 04/07/24 0903 113/78 92 19 95 % 04/07/24 0833 119/67 93 23 93 % 04/07/24 0803 111/64 96 25 94 % LMP: No LMP for male patient. OB Status: unknown ANESTHESIA PRE-EVALUATION NOTE History of Present Illness: Luis Daniel Ford is a 69 year old male with a history of T1DM, HTN, and hypothyroidism who is being transferred from [facility] after CT imaging with findings concerning for emphysematous gastritis. The patient reports that he had a fall on 03/30/24 for which he was admitted on 04/01/24 and was found to have a right displaced femoral neck fracture. This was repaired. During his stay at the hospital, he remained constipated and developed abdominal pain and distension. A CT scan was performed which reportedly showed emphysematous gastritis. Consequently, the patient was transferred to [facility] for further management. The patient is a current non-smoker. Physical Exam: Orientation X3 Airway/Mallampati Score: III Mouth Opening Distance: 2.5 fingerwidths Neck ROM: full TM Distance: > 3 FB Teeth: normal (couple missing) Heart: normal - S1 S2 Lungs: clear to ausculation bilaterally Review of Systems: History of anesthetic complications: No Sleep Apnea Risk: No GERD: No Poor Exercise Tolerance: No Recent Chest Pain: No Shortness of Breath: No AICD/Pacemaker: No Diagnostic Tests: Echo(s) reviewed: Yes (2016). Lab(s) reviewed: Yes. Other Findings: Impressions: 1. Low normal systolic function - EF 50% 2. Impaired relaxation - diastolic dysfunction grade I 3. No significant valvular abnormalities 4. No pericardial effusion ANESTHESIA PLAN ASA Score: 3 NPO Status: No liquids within 2 hours and No solids since midnight Anesthesia Plan: general and TIVA (back up ett) Planned Induction: intravenous Planned Postop Destination: endo Anesthetic plan was discussed with: patient Anesthetic Plan discussion was: Consented The patient's procedural Anesthetic Plan was discussed with the NUT ROASTER HELPER. BMI, Height, Weight Tobacco History Estimated body mass index is 27.6 kg/m?? as calculated from the following: Height as of this encounter: 1.88 m (6' 2 ). Weight as of this encounter: 97.5 kg (215 lb). Social History Tobacco Use Smoking Status Never Smokeless Tobacco Never Alcohol History Drug History Social History Substance and Sexual Activity Alcohol Use Yes Alcohol/week: 4.0 standard drinks of alcohol Types: 4 Standard drinks or equivalent per week Social History Substance and Sexual Activity Drug Use No Outpatient Medications: Inpatient Medications: No outpatient medications have been marked as taking for the 04/07/24 encounter (Hospital Encounter). Current Facility-Administered Medications Medication Dose Last Admin 0.9% NaCl 3 mL 3 mL at 04/07/24 0611 And 0.9% NaCl 1-10 mL bisacodyl 10 mg [START ON 04/08/2024] cefTRIAXone 2,000 mg dextrose IV for hypoglycemia 12.5 g Or dextrose IV for hypoglycemia 25 g Or glucagon 1 mg glucose (Diabetic Use) gel insulin aspart 0-12 Units insulin glargine 12 Units iopamidol 30 mL iopamidol 100 mL at 04/07/24 1006 lactated ringers metroNIDAZOLE 500 mg pantoprazole 40 mg polyethylene glycol 3350 17 g senna 8.6 mg Allergies: No Known Allergies Relevant Problems Cardiovascular (+) Benign essential HTN Problem List: Patient Active Problem List Diagnosis Date Noted Abdominal pain, generalized 04/07/2024 Priority: Not Prioritized Emphysematous gastritis 04/07/2024 Priority: Not Prioritized Leukocytosis, unspecified type 04/07/2024 Priority: Not Prioritized Screening for colorectal cancer 08/04/2020 Priority: Not Prioritized Benign essential HTN 01/10/2016 Priority: Not Prioritized Bradycardia 01/10/2016 Priority: Not Prioritized Medical History: Past Medical History: Diagnosis Date Diabetes (HCC) Hypertension Hypothyroid 10/2012 Surgical History: Past Surgical History: Procedure Laterality Date COLONOSCOPY 09/13/2020 COLONOSCOPY SCREEN Tonsillectomy 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 unknown OB History No obstetric history on file. Covid Vaccine: Lab Results: Recent Labs Component Name 04/07/24 0536 WBC 18.7* RBC 3.83* HCT 32.0* HGB 11.6* PLTCOUNT 307 MCV 83.6 MCH 30.3 MCHC 36.3 MPV 9.8 Recent Labs Component Name 04/07/24 0536 POTASSIUM 4.5 CALCIUM 8.1* CO2 23 GLUCOSE 193* BUN 17 CREATININE 0.65* Recent Labs Component Name 04/07/24 0536 PT 17.1* INR 1.4 No results found for requested labs within last 120 days. Recent Labs Result Component Current Result Alkaline Phosphatase 58 (04/07/2024) ALT 11 (04/07/2024) Anion Gap 8 (04/07/2024) AST 13 (04/07/2024) eGFR by CKD-EPI >90 (04/07/2024) HER WORKER documented in this encounter Miscellaneous Notes * Anesthesia Transfer of Care - Raisa Sunshine APRN-NUT ROASTER HELPER - 04/07/2024 3:22 PM CST ANESTHESIA TRANSFER OF CARE NOTE Today's Date: 04/07/2024 Date of : 1955 Patient: Luis Daniel Ford Procedure(s) with comments: EGD - Duodenal Erythema and Erosion Gastric Erythema and Ulcers Esophagitis Surgeon(s): Primary: Erasto Urbina MD Preop Diagnosis: Pre-op Diagnois: * 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] Pre-op Meds (From admission, onward) Start Stop Status Route Frequency Ordered 04/07/24 0448 0.9% NaCl injection 1-10 mL Placed in And Linked Group -- Dispensed IK PRN 04/07/24 0450 04/07/24 0600 0.9% NaCl injection 3 mL Placed in And Linked Group -- Dispensed IK EVERY 8 HOURS 04/07/24 0450 04/07/24 1400 [Transfer Hold] bisacodyl (Dulcolax) suppository 10 mg (Medication was not reviewed on transfer) -- Verified RE DAILY 04/07/24 1316 04/07/24 0500 cefTRIAXone (Rocephin) syringe 2,000 mg Placed in Followed by Linked Group 04/07/24 0548 Completed IV NOW 04/07/24 0450 04/08/24 0249 cefTRIAXone (Rocephin) syringe 2,000 mg Placed in Followed by Linked Group -- Verified IV EVERY 24 HOURS 04/07/24 0450 04/07/24 1248 [Transfer Hold] dextrose IV 12.5 g (Medication was not reviewed on transfer) Placed in Or Linked Group -- Verified IV PRN 04/07/24 1250 04/07/24 1248 [Transfer Hold] dextrose IV 25 g (Medication was not reviewed on transfer) Placed in Or Linked Group -- Verified IV PRN 04/07/24 1250 04/07/24 1248 [Transfer Hold] glucagon (Glucagen) injection 1 mg (Medication was not reviewed on transfer) Placed in Or Linked Group -- Verified SC PRN 04/07/24 1250 04/07/24 1248 [Transfer Hold] glucose (Diabetic Use) oral gel (Medication was not reviewed on transfer) -- Verified PO PRN 04/07/24 1250 04/07/24 1600 [Transfer Hold] insulin aspart (NovoLOG) pen 0-6 Units (Medication was not reviewed on transfer) -- Verified SC EVERY 4 HOURS 04/07/24 1421 04/07/24 2100 [Transfer Hold] insulin glargine (Lantus) pen 12 Units (Medication was not reviewed on transfer) -- Verified SC AT BEDTIME 04/07/24 1250 04/07/24 0604 iopamidol (Isovue 300) 61 % contrast 30 mL 04/09/24 0603 Dispensed PO CONTRAST ONCE 04/07/24 0604 04/07/24 1006 iopamidol (Isovue 370) 76 % contrast 04/09/24 1005 Dispensed IV CONTRAST ONCE 04/07/24 1006 04/07/24 1245 lactated ringers infusion 04/07/24 2244 Dispensed IV CONTINUOUS 04/07/24 1202 04/07/24 1345 metroNIDAZOLE (Flagyl) 500 mg in 100 mL IVPB -- Verified IV EVERY 8 HOURS 04/07/24 1300 04/07/24 0500 pantoprazole (Protonix) injection 40 mg 04/07/24 0611 Completed IV NOW 04/07/24 0450 04/07/24 1245 [Transfer Hold] pantoprazole (Protonix) injection 40 mg (Medication was not reviewed on transfer) -- Verified IV DAILY 04/07/24 1202 04/07/24 1400 [Transfer Hold] polyethylene glycol 3350 (Miralax) packet 17 g (Medication was not reviewed on transfer) -- Verified PO 2 TIMES DAILY 04/07/24 1316 04/07/24 1400 [Transfer Hold] senna (Senokot) tablet 8.6 mg (Medication was not reviewed on transfer) -- Verified PO 2 TIMES DAILY 04/07/24 1316 Post-op Diagnosis: * 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 No Known Allergies Vitals: Patient Vitals for the past 3 hrs: BP Temp Pulse Resp SpO2 04/07/24 1445 121/69 -- 87 15 94 % 04/07/24 1433 129/83 -- 95 18 93 % 04/07/24 1432 -- 98.4 ??F (36.9 ??C) 92 15 96 % 04/07/24 1315 120/72 -- 103 10 94 % Lines, Drains, and Airways Type Details Placement Removal Peripheral IV Date: 04/07/24; Orientation: Anterior, Left; Location: Forearm; Gauge: 22 G 04/07/24 0000 by Cooper Valente RN Peripheral IV Date: 04/07/24; Orientation: Right; Location: Antecubital; Gauge: 20 G 04/07/24 0000 by Cooper Valente RN Intraprocedure I/O Totals None Patient Transfer Location: PACU Transport Airway: spontaneous respirations Notable Events: None Handoff Given? Yes Checklist or Protocol [...] understanding of report from the receiving PACUteam. NOTABLE EVENTS: No notable events documented. Raisa Sunshine APRN-NUT ROASTER HELPER HER WORKER documented in this encounter Plan of Treatment Not on file documented as of this encounter Visit Diagnoses Not on filedocumented in this encounter Administered Medications Inactive Administered Medications - up to 3 most recent administrations Medication Order MAR Action Action Date Dose Rate Site 0.9% NaCl infusion Intravenous, CONTINUOUS PRN, Starting on Sun04/07/24 at 1443, Until Sun04/07/24 at 1521, Anesthesia Intra-op $ New Bag/Syringe 04/07/2024 2:43 PM LEATHER WORKER lidocaine HCl (PF) (Xylocaine MPF) 2 % injection Intravenous, PRN, Starting on Sun04/07/24 at 1458, Until Sun04/07/24 at 1521, Anesthesia Intra-op $ Given 04/07/2024 2:58 PM LEATHER WORKER 50 mg phenylephrine 100 mcg/mL injection Intravenous, PRN, Starting on Sun04/07/24 at 1510, Until Sun04/07/24 at 1521, Anesthesia Intra-op $ Given 04/07/2024 3:10 PM LEATHER WORKER 200 mcg propofol (Diprivan) infusion Intravenous, CONTINUOUS PRN, Starting on Sun04/07/24 at 1458, Until Sun04/07/24 at 1521, Anesthesia Intra-op Rate Change 04/07/2024 3:11 PM LEATHER WORKER 140 mcg/kg/min 81.9 mL/hr Rate Change 04/07/2024 3:06 PM LEATHER WORKER 150 mcg/kg/min 87.75 mL /hr $ New Bag/Syringe 04/07/2024 2:58 PM LEATHER WORKER 165 mcg/kg/min 96 .525 mL/hr propofol (Diprivan) injection Intravenous, PRN, Starting on Sun04/07/24 at 1458, Until Sun04/07/24 at 1521, Anesthesia Intra-op $ Given 04/07/2024 2:58 PM LEATHER WORKER 100 mg documented in this encounter Care Teams Cafeteria Aide Relationship Specialty Start [place] [address] [address] [facility] [address] [place] [phone] PCP - General Family Medicine 04/07/24 documented as of this encounter
--- OUTSIDE RECORDS SUMMARY | 2024-04-10 17:12 | XMS_ITS | Patient Health Summary ---
Author Organization [facility] Address [address] [place] [address] Care Team Providers Care Buggy Driver Name Role Phone Chuckie Chavira MD, Sebastian Grace Primary Care Provid er Note from [facility],non-owned Affiliates and Associated Physician Practices is amultiple site organization consisting of ambulatory clinics and hospital sitesin [place], [place], [place] and [place]. This disclosure is being madepursuant to the Care Everywhere program and may not contain all information available regarding this patient. Last updated 17.[facility] Allergies No known active allergies Medications * Be aware that medications may not be up to date on this document. Alwaysverify current medications with the patient. Ended Medications* Insulin Aspart (NOVOLOG SC)(Suspended) * aspirin (ASPIRIN) 325 MG tablet(Suspended) Take 1 (one) tablet by mouth * insulin detemir (LEVEMIR) pen(Suspended) Inject 12 (twelve) Units subcutaneously * lisinopril (PRINIVIL; ZESTRIL) 20 MG tablet(Started 06/04/2015)(Suspended) Take 1 (one) tablet by mouth * insulin aspart (NOVOLOG FLEXPEN) pen(Started 04/02/2015)(Suspended) * levothyroxine (SYNTHROID) 125 MCG tablet(Started 01/10/2016)(Suspended) Take 1 Tab by mouth once daily 2 refills remaining * acetaminophen-codeine (TYLENOL #3) 300-30 MG tablet(Started 03/30/2020) (Suspended) Take 1 (one) tablet by mouth every 6 hours as needed pain * doxycycline hyclate (VIBRAMYCIN) 100 MG capsule(Started 07/28/2020)(Suspended) Take 1 (one) capsule by mouth 2 times daily * ONETOUCH VERIO test strip(Started 01/31/2020)(Suspended) USE TO TEST TID * Insulin Lispro (HUMALOG KWIKPEN) 100 UNIT/ML(Started 02/19/2020)(Suspended) INJECT UP TO 120 UNITS PER DAY IN DIVIDED DOSES DIRECTED ON SLIDING SCALE * NA-K-MG sulfates (SUPREP) 17.5-3.13-1.6 GM/177ML solution(Started 08/04/2020) (Suspended) Take 177 mL by mouth once daily * Insulin NPH Human, Isophane, (HUMULIN N KWIKPEN SC)(Suspended) Inject 15 Units subcutaneously 3 times daily * Vitamin D, Cholecalciferol, 25 MCG (1000 UT) CAPS(Suspended) Active Problems Problem Noted Date Diagnosed Date [...] medical care, and heating? Patient declined 04/07/2024 [facility] - Occupational Stress [...] any time in the past 12 m [facility], were you homeless or living in a alf (including now)? Patient declined 04/07/2024 Sex and Gender Information Value Date Recorded Sex Assigned at Not on file Gender Identity Not on file Sexual Orientation Not on file Last Filed Vital Signs Vital Sign Reading Time Taken Comments Blood Pressure 158/81 04/10/2024 11:34 AM WEB DESIGNER Pulse 83 04/10/2024 11:34 AM WEB DESIGNER Temperature 36.7 ??C (98.1 ??F) 04/10/2024 11:[address] Respiratory Rate 18 04/10/2024 11:34 AM WEB DESIGNER Oxygen Saturation 92% 04/10/2024 11:34 AM WEB DESIGNER Inhaled Oxygen Concentration - - Weight 97.5 kg (215 lb) 04/07/2024 6:19 PM WEB DESIGNER Height 188 cm (6' 2 ) 04/07/2024 6:19 PM WEB DESIGNER Body Mass Index 27.6 04/07/2024 6:19 PM WEB DESIGNER Procedures * GLUCOSE - POINT OF CARE(Performed 04/10/2024) * GLUCOSE - POINT OF CARE(Performed 04/10/2024) * MAGNESIUM BLOOD(Performed 04/10/2024) * RENAL FUNCTION PANEL(Performed 04/10/2024) * CBC W AUTO DIFFERENTIAL(Performed 04/10/2024) * GLUCOSE - POINT OF CARE(Performed 04/10/2024) * GLUCOSE - POINT OF CARE(Performed 04/10/2024) * GLUCOSE - POINT OF CARE(Performed 04/09/2024) * GLUCOSE - POINT OF CARE(Performed 04/09/2024) * XR HIP RIGHT 2VW OR MORE(Performed 04/09/2024) Performed for History of total right hip replacement * GLUCOSE - POINT OF CARE(Performed 04/09/2024) * GLUCOSE - POINT OF CARE(Performed 04/09/2024) * MAGNESIUM BLOOD(Performed 04/09/2024) * RENAL FUNCTION PANEL(Performed 04/09/2024) * CBC W AUTO DIFFERENTIAL(Performed 04/09/2024) * GLUCOSE - POINT OF CARE(Performed 04/09/2024) * GLUCOSE - POINT OF CARE(Performed 04/09/2024) * GLUCOSE - POINT OF CARE(Performed 04/08/2024) * GLUCOSE - POINT OF CARE(Performed 04/08/2024) * GLUCOSE - POINT OF CARE(Performed 04/08/2024) * GLUCOSE - POINT OF CARE(Performed 04/08/2024) * HEMOGLOBIN A1C(Performed 04/08/2024) * TSH REFLEX FREE T4(Performed 04/08/2024) * MAGNESIUM BLOOD(Performed 04/08/2024) * RENAL FUNCTION PANEL(Performed 04/08/2024) * CBC W AUTO DIFFERENTIAL(Performed 04/08/2024) * GLUCOSE - POINT OF CARE(Performed 04/08/2024) * GLUCOSE - POINT OF CARE(Performed 04/07/2024) * URINALYSIS REFLEX TO MICROSCOPIC NO CULTURE(Performed 04/07/2024) * CULTURE URINE(Performed 04/07/2024) * HELICOBACTER PYLORI ANTIGEN FECES(Performed 04/07/2024) * GLUCOSE - POINT OF CARE(Performed 04/07/2024) * URINE MICROSCOPIC ONLY REFLEX TO CULTURE(Performed 04/07/2024) * URINALYSIS REFLEX MICROSCOPIC REFLEX CULTURE(Performed 04/07/2024) * EGD(Performed 04/07/2024) * AL ED EGD FLEX TRANSORAL DX(Performed 04/07/2024) Performed for Emphysematous gastritis * GLUCOSE - POINT OF CARE(Performed 04/07/2024) * CT ANGIO CHEST ABDOMEN PELVIS(Performed 04/07/2024) Performed for Abdominal pain, generalized * CULTURE BLOOD(Performed 04/07/2024) * CK BLOOD(Performed 04/07/2024) * PT-INR [facility](Performed 04/07/2024) * LIPASE BLOOD(Performed 04/07/2024) * LACTIC ACID BLOOD REFLEX TO REPEAT(Performed 04/07/2024) * COMPREHENSIVE METABOLIC PANEL(Performed 04/07/2024) * CBC W AUTO DIFFERENTIAL(Performed 04/07/2024) * CULTURE BLOOD(Performed 04/07/2024) * XR CHEST 1VW PORTABLE(Performed 04/07/2024) Performed for Abdominal pain, generalized * CARDIAC EKG ORDER(Performed 04/07/2022) * TROPONIN [...] 2016) Performed for Shock (HCC) Results * (ABNORMAL) GLUCOSE - POINT OF CARE (04/10/2024 12:24 PM WEB DESIGNER) Only the most recent of31 resultswithin the time period is included. Glucose WB/POC 205(H) 70 - 99 mg/dL 04/10/2024 12:[address] [facility] Specimen Type Venous 04/10/2024 12:55 PM [facility] Blood BLOOD SPECIMEN / Unknown 04/10/2024 12:24 PM WEB DESIGNER 04/10/2024 12:55 PM WEB DESIGNER Fadi Arita DO LAB - POINT OF CARE ORDERABLES [facility] [address] [place] [address], [facility] [phone] * (ABNORMAL) CBC W AUTO DIFFERENTIAL (04/10/2024 6:15 AM [facility]) Only the most recent of7 resultswithin the time period is included. [facility] WBC 9.4 4.0 - 10.7 x10E9/L 04/10/2024 6:55 AM [facility] RBC Count 4.01(L) 4.30 - 5.80 x10E12/L 04/10/2024 6:55 AM [facility] Hemoglobin 12.0(L) 13.3 - 17.5 g/dL 04/10/2024 6:55 AM [facility] Hematocrit 33.5(L) 38.7 - 51.1 % 04/10/2024 6:55 AM [facility] MCV 83.5 80.0 - 98.0 fL 04/10/2024 6:55 AM [facility] MCH 29.9 26.7 - 33.6 pg 04/10/2024 6:55 AM [facility] MCHC 35.8 31.7 - 36.3 g/dL 04/10/2024 6:55 AM [facility] RDW-CV 12.1 11.3 - 14.8 % 04/10/2024 6:55 AM [facility] Platelet Count 336 150 - 420 x10E9/L 04/10/2024 6:55 AM [facility] MPV 8.9 7.8 - 11.4 fL 04/10/2024 6:55 AM [facility] Preliminary Absolute Neutrophil 6.64 1.60 - 7.50 x10E9/L 04/10/2024 6:55 AM [facility] Neutrophil % 70.5 41.0 - 74.0 % 04/10/2024 6:55 AM [facility] Lymphocyte % 13.0(L) 17.0 - 47.0 % 04/10/2024 6:55 AM [facility] Monocyte % 7.7 3.0 - 11.0 % 04/10/2024 6:55 AM [facility] Eosinophil % 3.1 0.0 - 7.0 % 04/10/2024 6:55 AM [facility] Basophil % 1.3 0.0 - 1.6 % 04/10/2024 6:55 AM [facility] Immature Granulocytes % 4.4(H) 0.0 - 1.0 % 04/10/2024 6:55 AM [facility] Neutrophil Absolute 6.64 1.60 - 7.50 x10E9/L 04/10/2024 6:55 AM [facility] Lymphocyte Absolute 1.22 1.00 - 4.40 x10E9/L 04/10/2024 6:55 AM [facility] Monocyte Absolute 0.72 0.15 - 1.00 x10E9/L 04/10/2024 6:55 AM [facility] Eosinophil Absolute 0.29 0.00 - 0.60 x10E9/L 04/10/2024 6:55 AM [facility] Basophil Absolute 0.12 0.00 - 0.13 x10E9/L 04/10/2024 6:55 AM [facility] Blood BLOOD SPECIMEN / Unknown Lab Venipuncture / Unknown 04/10/2024 6:15 AM WEB DESIGNER 04/10/2024 6:46 AM [facility] Bruce Cullen III, MD LAB - HEMATOLOG Y ORDERABLES [facility] [address] [place] [address], [facility] [phone] * (ABNORMAL) RENAL FUNCTION PANEL (04/10/2024 6:15 AM WEB DESIGNER) Only the most recent of3 resultswithin the time period is included. BUN 6(L) 7 - 26 mg/dL 04/10/2024 7:15 AM [facility] Creatinine 0.60(L) 0.71 - 1.16 mg/dL 04/10/2024 7:15 AM [facility] Sodium 135(L) 136 - 145 mmol/L 04/10/2024 7:15 AM [facility] Potassium 2.7(L) 3.5 - 4.5 mmol/L 04/10/2024 7:15 AM [facility] Chloride 98 98 - 107 mmol/L 04/10/2024 7:15 AM [facility] CO2 25 22 - 29 mmol/L 04/10/2024 7:15 AM [facility] Glucose 132(H) 70 - 99 mg/dL 04/10/2024 7:15 AM [facility] Albumin 2.1(L) 3.4 - 5.0 g/dL 04/10/2024 7:15 AM [facility] Calcium 7.7(L) 8.4 - 10.2 mg/dL 04/10/2024 7:15 AM [facility] Phosphorus 3.1 2.8 - 5.1 mg/dL 04/10/2024 7:15 AM [facility] Anion Gap 12 6 - 16 04/10/2024 7:15 AM [facility] BUN/Creatinine Ratio 10 7 - 23 04/10/2024 7:15 AM [facility] Osmolality Calculated 279 275 - 295 mOsm/kg 04/10/2024 7:15 AM [facility] eGFR by CKD-EPI >90 >=90 mL/min/1.7 3 m2 04/10/2024 7:15 AM [facility] Blood BLOOD SPECIMEN / Unknown Lab Venipuncture / Unknown 04/10/2024 6:15 AM [facility] 04/10/2024 6:46 AM [facility] Bruce Cullen III, MD LAB - CHEMISTRY ORDERABLES Performing Organization Address City/State/[facility] Co de Phone Number [facility] [address] [place] [address], [facility] [phone] * MAGNESIUM BLOOD (04/10/2024 6:15 AM WEB DESIGNER) Only the most recent of3 resultswithin the time period is included. Magnesium 1.7 1.6 - 2.6 mg/dL 04/10/2024 7:15 AM WEB DESIGNER [facility] Blood BLOOD SPECIMEN / Unknown Lab Venipuncture / Unknown 04/10/2024 6:15 AM WEB DESIGNER 04/10/2024 6:46 AM WEB DESIGNER Bruce Cullen III, MD LAB - CHEMISTRY ORDERABLES [facility] [address] [place] [address], [facility] [phone] * XR Hip Right 2Vw or More (04/09/2024 1:29 PM WEB DESIGNER) Anatomical Region Laterality Modality Pelvis, Lower Extremity Digital Radiography 04/10/2024 2:03 AM WEB DESIGNER Impressions 04/10/2024 2:03 AM WEB DESIGNER IMPRESSION: There is a right hip 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 There is no periprosthetic fracture or osteolysis. > Interpreting Provider: Brock Moody MD on 04/10/2024 2:03 AM Narrative 04/10/2024 2:03 AM WEB DESIGNER PROCEDURE: ??XR HIP RIGHT 2VW OR MORE [...] TSH REFLEX FREE T4 (04/08/2024 8:02 AM WEB DESIGNER) TSH 2.481 0.350 - 4.940 uIU/mL 04/08/2024 9:26 AM [facility] Blood BLOOD SPECIMEN / Unknown Lab Venipuncture / Unknown 04/08/2024 8:02 AM WEB DESIGNER 04/08/2024 8:41 AM WEB DESIGNER Bruce Cullen III, MD LAB - CHEMISTRY ORDERABLES Performing Organization Address [facility] Co de Phone Number [facility] [address] [place] [address], [facility] [phone] * (ABNORMAL) HEMOGLOBIN A1C (04/08/2024 8:02 AM WEB DESIGNER) Hemoglobin A1c 9.4(H) <=5.6 % 04/08/2024 1:21 PM [facility] Estimated Average Glucose 223 mg/dL 04/08/2024 1:21 PM [facility] Comment: HbA1c Interpretation: Normal : < 5.7% Pre-diabetes: 5.7-6.4% Diabetes: Equal to or greater than 6.5% Test results diagnostic of diabetes should be repeated for confirmation. Treatment target values recommended by ADA and other clinical organizations should be used to evaluate metabolic control in patients. Reference: [place] [employer], Standards of Care in Diabetes -2020 In patients 70 years and older consider HbA1c target range of 7.0-7.5% (Reference: Sarwat Rodrigues et al. JAMDA. 2012) The Sebia assay for the measurement of HbA1c is a National Glycohemoglobin Standardization Program (NGSP) certified method. Blood BLOOD SPECIMEN / Unknown Lab Venipuncture / Unknown 04/08/2024 8:02 AM WEB DESIGNER 04/08/2024 8:40 AM WEB DESIGNER Bruce Cullen III, MD LAB - CHEMISTRY ORDERABLES [facility] [address] [place] [address], [facility] [phone] * HELICOBACTER PYLORI ANTIGEN FECES (04/07/2024 11:18 PM WEB DESIGNER) Helicobacter pylori Antigen Stool Negative Negative 04/09/2024 11:12 PM WEB DESIGNER [employer] ([facility]) Comment: Performed By: [employer] [address] [place] [address] Curb Hop: Vern Montiel MD, PhD CLIA Number: [id number] Stool STOOL SPECIMEN / Unknown Collection / Unknown 04/07/2024 11:18 PM WEB DESIGNER 04/07/2024 11:22 PM WEB DESIGNER Emanuel Dempsey DO LAB - MICROBIOLOGY O RDERABLES Performing Organization Address [facility] Co de Phone Number [facility]) [address] [place], [place] [address]RUST * (ABNORMAL) URINALYSIS REFLEX TO MICROSCOPIC NO CULTURE (04/07/2024 11:18 PM WEB DESIGNER) Only the most recent of2 resultswithin the time period is included. Color UA Jennifer(A) Straw, Yellow 04/07/2024 11:38 PM WEB DESIGNER [facility] Clarity UA Slt Cloudy(A) Clear 04/07/2024 11:38 PM WEB DESIGNER [facility] Specific [place] UA 1.040(H) 1.005 - 1.030 04/07/2024 11:38 PM WEB DESIGNER [facility] pH UA 5.0 5.0 - 8.0 pH 04/07/2024 11:38 PM WEB DESIGNER [facility] Protein UA 1+(A) Negative 04/07/2024 11:38 PM WEB DESIGNER [facility] Glucose UA 1+(A) Negative 04/07/2024 11:38 PM WEB DESIGNER [facility] Ketone UA 2+(A) Negative 04/07/2024 11:38 PM WEB DESIGNER [facility] Bilirubin UA Negative Negative 04/07/2024 11:38 PM WEB DESIGNER [facility] Blood UA 1+(A) Negative 04/07/2024 11:38 PM WEB DESIGNER [facility] Nitrite UA Negative Negative 04/07/2024 11:38 PM WEB DESIGNER [facility] Leukocyte Esterase Negative Negative 04/07/2024 11:38 PM [facility] Urobilinogen UA 4.0(A) Negative mg/dL 04/07/2024 11:38 PM [facility] RBC UA 11-20(A) None Seen, 0-2, 3-5 /HPF 04/07/2024 11:38 PM [facility] WBC UA 0-5 None Seen, 0-5 /HPF 04/07/2024 11:38 PM [facility] Squamous Epithelial Cells UA 0-2 None Seen, 0-2, 3-5 /HPF 04/07/2024 11:38 PM [facility] Mucus UA 2+ /LPF 04/07/2024 11:38 PM [facility] Urine URINE SPECIMEN OBTAINED VIA INDWELLING URINARY CATHETER / Unknown Collection / Unknown 04/07/2024 11:18 PM WEB DESIGNER 04/07/2024 11:23 PM WEB DESIGNER Narrative [facility] - 04/07/2024 11:38 PM WEB DESIGNER Emanuel Dempsey DO LAB - URINALYSIS ORD ERABLES [facility] [address] [place] [address], [place] [phone] * CULTURE URINE (04/07/2024 11:18 PM WEB DESIGNER) Pathologist [facility] Culture Urine No growth (<100 CFU/mL) ANTONIO 04/09/2024 6:12 AM WEB DESIGNER [facility] MICROBIOLOGY Urine URINE SPECIMEN OBTAINED VIA [employer]WELL[employer] URINARY CATHETER / Unknown Collection / Unknown 04/07/2024 11:18 PM WEB DESIGNER 04/07/2024 11:23 PM WEB DESIGNER Emanuel Dempsey DO LAB - MICROBIOLOGY O RDERABLES [facility] MICROBIOLOGY [address] [place] [address], [facility] [phone] * (ABNORMAL) URINE MICROSCOPIC ONLY REFLEX TO CULTURE (04/07/2024 5:46 PM WEB DESIGNER) Reflex Status Culture not indicated 04/07/2024 6:08 PM [facility] RBC UA 21-50(A) None Seen, 0-2, 3-5 /HPF 04/07/2024 6:08 PM [facility] WBC UA 6-10(A) None Seen, 0-5 /HPF 04/07/2024 6:08 PM [facility] Bacteria UA 1+(A) None /HPF 04/07/2024 6:08 PM [facility] Squamous Epithelial Cells UA 0-2 None Seen, 0-2, 3-5 /HPF 04/07/2024 6:08 PM [facility] Mucus UA 1+ /LPF 04/07/2024 6:08 PM [facility] Amorphous Crystals Rare(A) None /HPF 04/07/2024 6:08 PM [facility] Urine URINE SPECIMEN OBTAINED VIA [employer]WELL[employer] URINARY CATHETER / Unknown Collection / Unknown 04/07/2024 5:46 PM WEB DESIGNER 04/07/2024 5:55 PM WEB DESIGNER [facility] - 04/07/2024 6:08 PM WEB DESIGNER Jamaal White DO LAB - URINALYSIS ORD ERABLES [facility] [address] [place] [address], [facility] [phone] * (ABNORMAL) URINALYSIS REFLEX MICROSCOPIC REFLEX CULTURE (04/07/2024 5:46 PM WEB DESIGNER) Only the most recent of2 resultswithin the time period is included. Color UA Jennifer(A) Straw, Yellow 04/07/2024 6:09 PM [facility] Clarity UA Slt Cloudy(A) Clear 04/07/2024 6:09 PM [facility] Specific [place] UA >1.060(H) 1.005 - 1.030 04/07/2024 6:09 PM [facility] Comment:Specific gravity res ults confirmed by refractometer. pH UA 5.0 5.0 - 8.0 pH 04/07/2024 6:09 PM WEB DESIGNER [facility] Protein UA 2+(A) Negative 04/07/2024 6:09 PM [facility] Glucose UA 1+(A) Negative 04/07/2024 6:09 PM [facility] Ketone UA 1+(A) Negative 04/07/2024 6:09 PM [facility] Bilirubin UA Negative Negative 04/07/2024 6:09 PM [facility] Blood UA 1+(A) Negative 04/07/2024 6:09 PM [facility] Nitrite UA Negative Negative 04/07/2024 6:09 PM [facility] Leukocyte Esterase Negative Negative 04/07/2024 6:09 PM [facility] Urobilinogen UA 4.0(A) Negative mg/dL 04/07/2024 6:09 PM [facility] Urine URINE SPECIMEN OBTAINED VIA INDWELLING URINARY CATHETER / Unknown Collection / Unknown 04/07/2024 5:46 PM WEB DESIGNER 04/07/2024 5:55 PM WEB DESIGNER Narrative [facility] - 04/07/2024 6:09 PM WEB DESIGNER Jamaal White DO LAB - URINALYSIS ORD ERABLES Performing Organization Address [facility]/State/ZIP Co de Phone Number [facility] [address] [place] [address], [facility] [phone] * EGD (04/07/2024 2:55 PM WEB DESIGNER) Report Endoscopy POC Endoscopy Department Report _ [...] Procedure Code(s): ? --- Professional --- ? 88770, Esophagogastroduod enoscopy, flexible, transoral; diagnostic, ? including collection of specimen(s) by brushing or washing, when ? performed (separate procedure) Diagnosis Code(s): ?--- Professional --- ?K31.89, Other diseases of stomach and duodenum ?K25.9, Gastric ulcer, unspecified as acute or ?chronic, without hemorrhage or perforation ?K20.90, Esophagitis, unspecified without bleeding ?R93.3, Abnormal findings on diagnostic imaging of ?other parts of digestive tract CPT copyright 2021 [place] [employer]. All rights reserved. The codes documented in this report are preliminary and upon android platform developer review may be revised to meet current compliance requirements. Erasto Zimmerman Carlitos, 04/07/2024 3:31:30 PM Note Initiated On: 04/07/2024 2:55 PM Number of Addenda: 0 ? [facility] ? [address] [place] [address] [facility] 04/07/2024 2:55 PM WEB DESIGNER Emanuel Dempsey DO GI PROCEDURE ORDERAB LES [facility] * CT Angio Chest Abdomen Pelvis (04/07/2024 10:13 AM WEB DESIGNER) Anatomical Region Laterality Modality Chest, Abdomen, Pelvis Computed Tomography 04/07/2024 10:3 5 AM WEB DESIGNER Impressions 04/07/2024 11:33 AM WEB DESIGNER Impression: 1.The stomach is distended with air [...] mm. > Dictated by Karthikeyan Barreto MD, (executive vice president). I, Tara Souza MD have personally reviewed and interpreted this examination/study. > Interpreting Provider: Tara Souza MD on 04/07/2024 11:33 AM Narrative 04/07/2024 11:33 AM WEB DESIGNER PROCEDURE: ??CT ANGIO CHEST ABDOMEN PELVIS, DATE/TIME OF EXAM: ??04/07/2024 10:13 AM, LOCATION ??[facility] INDICATION: R10.84: Abdominal pain, generalized ADDITIONAL CLINICAL [...] DATE/TIME OF EXAM: 04/07/2024 10:13 AM, LOCATION [facility] INDICATION: R10.84: Abdominal pain, generalized ADDITIONAL CLINICAL [...] mm. > Dictated by Karthikeyan Barreto MD, (executive vice president). I, Tara Souza MD have personally reviewed and interpreted this examination/study. > Interpreting Provider: Tara Souza MD on 04/07/2024 11:33 AM Rachel Jay MD CT ORDERABLES * (ABNORMAL) PT-INR [facility] (04/07/2024 5:36 AM WEB DESIGNER) PT 17.1(H) 12.1 - 14.8 Seconds 04/07/2024 6:56 AM WEB DESIGNER [facility] INR 1.4 See Comment 04/07/2024 6:56 AM WEB DESIGNER [facility] Comment:The suggested therap eutic range for standard coumadin (warfarin) therapy is an INR of 2.0-3.0. For high-risk patients (Mechanical Mitral Valve Prosthesis, etc.), the suggested prophylactic therapeutic range is an INR of 2.5-3.5. Blood BLOOD SPECIMEN / Unknown Venipuncture / Unknown 04/07/2024 5:36 AM WEB DESIGNER 04/07/2024 6:31 AM WEB DESIGNER Jamaal White DO LAB - COAGULATION OR DERABLES [facility] [address] [place] [address], [facility] [phone] * LACTIC ACID BLOOD REFLEX TO REPEAT (04/07/2024 5:36 AM WEB DESIGNER) Lactic Acid-Stat 0.8 <=2.0 mmol/L 04/07/2024 7:00 AM [facility] Blood BLOOD SPECIMEN / Unknown Venipuncture / Unknown 04/07/2024 5:36 AM WEB DESIGNER 04/07/2024 6:31 AM WEB DESIGNER Jamaal White DO LAB - CHEMISTRY ROBERTO POSADA [facility] [address] [place] [address], [facility] [phone] * (ABNORMAL) COMPREHENSIVE METABOLIC PANEL (04/07/2024 5:36 AM WEB DESIGNER) Only the most recent of3 resultswithin the time period is included. Pathologist [facility] BUN 17 7 - 26 mg/dL 04/07/2024 7:02 AM [facility] Creatinine 0.65(L) 0.71 - 1.16 mg/dL 04/07/2024 7:02 AM [facility] Sodium 134(L) 136 - 145 mmol/L 04/07/2024 7:02 AM [facility] Potassium 4.5 3.5 - 4.5 mmol/L 04/07/2024 7:02 AM [facility] Chloride 103 98 - 107 mmol/L 04/07/2024 7:02 AM [facility] CO2 23 22 - 29 mmol/L 04/07/2024 7:02 AM [facility] Glucose 193(H) 70 - 99 mg/dL 04/07/2024 7:02 AM [facility] Calcium 8.1(L) 8.4 - 10.2 mg/dL 04/07/2024 7:02 AM [facility] Protein Total 5.2(L) 6.0 - 8.3 g/dL 04/07/2024 7:02 AM [facility] Albumin 2.1(L) 3.4 - 5.0 g/dL 04/07/2024 7:02 AM [facility] Bilirubin Total 0.7 0.2 - 1.2 mg/dL 04/07/2024 7:02 AM [facility] Alkaline Phosphatase 58 40 - 150 U/L 04/07/2024 7:02 AM [facility] ALT 11 5 - 55 U/L 04/07/2024 7:02 AM [facility] AST 13 5 - 34 U/L 04/07/2024 7:02 AM [facility] Anion Gap 8 6 - 16 04/07/2024 7:02 AM [facility] BUN/Creatinine Ratio 26(H) 7 - 23 04/07/2024 7:02 AM [facility] Osmolality Calculated 285 275 - 295 mOsm/kg 04/07/2024 7:02 AM [facility] Albumin/Globulin Ratio 0.7(L) 1.1 - 2.3 04/07/2024 7:02 AM [facility] eGFR by CKD-EPI >90 >=90 mL/min/1.7 3 m2 04/07/2024 7:02 AM [facility] Blood BLOOD SPECIMEN / Unknown Venipuncture / Unknown 04/07/2024 5:36 AM WEB DESIGNER 04/07/2024 6:31 AM WEB DESIGNER Jamaal White DO LAB - CHEMISTRY ROBERTO POSADA Performing Organization Address City/[facility]/ZIP Co de Phone Number [address] [address], [facility] [phone] * (ABNORMAL) LIPASE BLOOD (04/07/2024 5:36 AM WEB DESIGNER) Lipase 4(L) 8 - 78 U/L 04/07/2024 7:02 AM [facility] Blood BLOOD SPECIMEN / Unknown Venipuncture / Unknown 04/07/2024 5:36 AM WEB DESIGNER 04/07/2024 6:31 AM WEB DESIGNER Narrative [facility] - 04/07/2024 7:02 AM [facility] Lipase results from the Packer Alinity analyzer may not be comparable with other methodologies. Jamaal White DO LAB - CHEMISTRY ROBERTO POSADA [address] [place] [address], [facility] [phone] * (ABNORMAL) CK BLOOD (04/07/2024 5:36 AM WEB DESIGNER) CK Total 25(L) 30 - 200 U/L 04/07/2024 7:02 AM WEB DESIGNER [facility] Blood BLOOD SPECIMEN / Unknown Venipuncture / Unknown 04/07/2024 5:36 AM WEB DESIGNER 04/07/2024 6:31 AM WEB DESIGNER Jamaal White DO LAB - CHEMISTRY ROBERTO POSADA [address] [address], [facility] [phone] * XR CHEST 1VW PORTABLE (04/07/2024 5:16 AM WEB DESIGNER) Only the most recent of2 resultswithin the time period is included. Anatomical Region Laterality Modality Chest Digital Radiogra phy 04/07/2024 6:04 AM WEB DESIGNER Impressions 04/07/2024 9:31 AM WEB DESIGNER IMPRESSION: Low lung volumes bilaterally with bronchovascular [...] verification. > Dictated by Pablo Potter DO (Name Plate Stamper), 04/07/2024 6:23 AM. INessa MD have personally reviewed and interpreted this examination/study. > Interpreting Provider: Nessa Hickman MD on 04/07/2024 9:31 AM Narrative 04/07/2024 9:31 AM WEB DESIGNER PROCEDURE: ??XR CHEST 1VW PORTABLE, DATE/TIME OF EXAM: ??04/07/2024 5:16 AM, LOCATION ??[facility] INDICATION: R10.84: Abdominal pain, generalized ADDITIONAL CLINICAL INFORMATION: Ordering Provider Reason For Exam: ??gastric/esophageal perf suspected COMPARISON: None. Procedure Note Nessa Hickman MD - 04/07/2024 PROCEDURE: XR CHEST 1VW PORTABLE, DATE/TIME OF EXAM: 04/07/2024 5:16AM, LOCATION [facility] INDICATION: R10.84: Abdominal pain, generalized ADDITIONAL CLINICAL [...] verification. > Dictated by Pablo Potter DO (Name Plate Stamper), 04/07/2024 6:23 AM. INessa MD have personally reviewed and interpreted this examination/study. > Interpreting Provider: Nessa Hickman MD on 04/07/2024 9:31 AM Jamaal White DO DIAGNOSTIC IMAGING O RDERABLES * CARDIAC EKG ORDER (04/07/2022 11:23 AM WEB DESIGNER) Only the most recent of2 resultswithin the time period is included. Narrative 04/07/2022 11:23 AM WEB DESIGNER Ordered by an unspecified provider. Scanned Document CARDIAC SERVICES ORD ERABLES * TROPONIN I (04/07/2022 4:43 AM WEB DESIGNER) Only the most recent of6 resultswithin the time period is included. Troponin I <0.010 <0.032 ng/mL 04/07/2022 5:35 AM WEB DESIGNER [facility] Blood BLOOD SPECIMEN / Unknown Line Draw / Unknown 04/07/2022 4:43 AM WEB DESIGNER 04/07/2022 4:59 AM WEB DESIGNER Shun Ordonez PA-C LAB - CHEMISTRY ROBERTO POSADA [facility] [address] [place] [address], [facility] [phone] * CT HEAD WO CONTRAST (04/07/2022 1:29 AM WEB DESIGNER) Only the most recent of2 resultswithin the time period is included. Anatomical Region Laterality Modality Head Computed Tomogra phy 04/07/2022 1:46 AM WEB DESIGNER Impressions 04/07/2022 10:17 AM WEB DESIGNER IMPRESSION: 1.No acute intracranial hemorrhage, midline shift, or significant mass effect. > Dictated by Stuart Levine MD (executive vice president). I, Payton Gonzalez MD have personally reviewed and interpreted this examination/study. > Interpreting Provider: Payton Gonzalez MD on 04/07/2022 10:17 AM Narrative 04/07/2022 10:17 AM WEB DESIGNER PROCEDURE: ??CT HEAD WO CONTRAST, DATE/TIME OF EXAM: ??04/07/2022 1:30 AM, LOCATION ??[facility] INDICATION: R55: Syncope and collapse [...] DATE/TIME OF EXAM: 04/07/2022 1:30 AM, LOCATION [facility] INDICATION: R55: Syncope and collapse [...] effect. > Dictated by Stuart Levine MD (executive vice president). IPayton MD have personally reviewed and interpretedthis examination/study. > Interpreting Provider: Payton Gonzalez MD on 04/07/2022 10:17 AM Missy Tobar MD CT ORDERABLES * (ABNORMAL) BLOOD GASES DENEEN + COOX PANEL (04/06/2022 7:58 PM WEB DESIGNER) pH Venous 7.46(H) 7.32 - 7.42 pH 04/06/2022 8:12 [address] [facility] pO2 Venous 24(L) 35 - 40 mmHg 04/06/2022 8:12 PM [facility] pCO2 Venous 44 40 - 50 mmHg 04/06/2022 8:12 PM [facility] HCO3 Venous 31.3(H) 20 - 30 mmol/L 04/06/2022 8:12 PM [facility] Base Excess Venous 6.4(H) -2.0 - 2.0 mmol/L 04/06/2022 8:12 PM [facility] Oxyhemoglobin Venous 30.4 % 03/19 8:12 PM [facility] Deoxyhemoglobin (HHB) Venous % 68.6 % 04/06/2022 8:12 PM [facility] Methemoglobin <0.8 0.0 - 2.0 % 04/06/2022 8:12 PM [facility] Carboxyhemoglobin 0.6 0.0 - 2.0 % 2022 8:12 PM [facility] O2 Content Venous 7.2 Interpret within clinical context ml/dL 04/06/2022 8:12 PM [facility] Hemoglobin by COOX 16.9 12.0 - 17.6 g/dL 04/06/2022 8:12 PM [facility] O2 Saturation Venous 31(L) >=70 % 03/19 8:12 PM [facility] FI O2 Mixed Venous 21.0 % 2022 8:12 PM [facility] Blood BLOOD SPECIMEN / Unknown Venipuncture / Unknown 04/06/2022 7:58 PM WEB DESIGNER 04/06/2022 8:03 PM [facility] - 04/06/2022 8:12 PM [facility] Carboxyhemoglobin Normal Concentration: Non-smokers: 0-2%; Smokers: 0-9%; Toxic: >20% Shun Ordonez PA-C LAB - BLOOD GASES OR DERABLES [facility] [address] [place] [address], [facility] [phone] * HYDROXYBUTYRATE BETA (04/06/2022 7:58 PM WEB DESIGNER) Pathologist [facility] Beta-Hydroxybu tyrate <0.50 <0.50 mmol/L 04/06/2022 8:42 PM WEB DESIGNER [facility] Blood BLOOD SPECIMEN / Unknown Venipuncture / Unknown 04/06/2022 7:58 PM WEB DESIGNER 04/06/2022 8:05 PM WEB DESIGNER Shun Ordonez PA-C LAB - CHEMISTRY ORDE SWETHA Performing Organization Address City/[facility]/ZIP Co de Phone Number [facility] [address] [place] [address], [facility] [phone] * EKG 12-LEAD (04/06/2022 7:44 PM WEB DESIGNER) Only the most recent of2 resultswithin the time period is included. [facility] Ventricular Rate 74 BPM [facility] MUSE Atrial Rate 74 BPM [facility] MUSE P-R Interval 140 ms [facility] MUSE QRS Duration ms 86 ms [facility] MUSE Q-T Interval ms 406 ms [facility] MUSE QTC Calculation (Bezet) 450 ms [facility] MUSE Calculated P [place] 76 degrees [facility] MUSE Calculated R [place] -65 degrees [facility] MUSE Calculated T [place] 20 degrees [facility] MUSE Interpretation EKG NORMAL SINUS RHYTHM LEFT ANTERIOR FASCICULAR BLOCK ANTERIOR INFARCT , AGE UNDETERMINED ABNORMAL ECG WHEN COMPARED WITH ECG OF 13-NOV-2007 20:51, CRITERIA FOR ANTERIOR INFARCT IS NOW PRESENT VENT. RATE HAS INCREASED by 19 bpm Confirmed by LUC KAPLAN MD ([id number]) on 04/07/2022 5:25:55 AM [facility] MUSE 04/06/2022 7:44 PM WEB DESIGNER 04/07/2022 5:25 AM WEB DESIGNER Shun Ordonez PA-C ECG ORDERABLES [facility] MUSE * PATHOLOGY TISSUE EXAM (STL) (09/13/2020 9:29 AM CDT) Pathologist [facility] Case Report Surgical Pathology Report ? Case: [id number] ? Authorizing Provider: ??Tr Fofana MD ? Collected: ? 09/13/2020 09:29 AM ? Ordering Location: ? [facility] ?Received: ?09/13/2020 10:45 AM ? [...] in cassette A1. 09/14/2020 3:44 PM CDT [facility] Microscopic Description Sections of the sigmoid polyp reveal a tubular adenoma without high-grade dysplasia. 09/14/2020 3:44 PM CDT [facility] Disclaimer All histochemical and/or immunohistochemical results are interpreted with controls that demonstrate appropriate staining reactions before reporting results. Note on use of immunocytochemistry reagents: This test was developed and its performance characteristic determined by [facility], Department of Laboratory Medicine. It has not [...] interpreted with caution. 09/14/2020 3:44 PM CDT [facility] Embedded Images 09/14/2020 3:44 PM CDT [facility] Pathology/Cytolo gy POLYP OF SIGMOID COLON / Unknown 09/13/2020 9:29 AM CDT 09/13/2020 10:45 AM CDT Tr Fofana MD LAB - PATHOLOGY/CYT OLOGY ORDERABLES [facility] [address] [place] [address] * ENDOSCOPY, COLON, SCREENING (09/13/2020 [...] the physician, the nurse and the ? irrigation specialist in the procedure room. Mental Status [...] Procedure Code(s): ? --- Professional --- ? 47580, Colonoscopy, flexible; with removal of tumor(s), polyp(s), or ? other lesion(s) by snare technique ? --- Technical --- ? 65672, Colonoscopy, flexible; with removal of tumor(s), polyp(s), [...] abscess ? without bleeding CPT copyright 2019 [employer]. All rights reserved. The codes documented in this report are preliminary and upon android platform developer review may be revised to meet current compliance requirements. Dr. Tr Fofana MD Tr Fofana MD 09/13/2020 9:33:03 AM This report has been signed electronically. Number of Addenda: 0 Note Initiated On: 09/13/2020 8:05 AM [facility] 09/13/2020 8:05 AM CDT Tr Fofana MD GI PROCEDURE ORDERA BLES Performing Organization Address City/[facility]/ZIP Co de Phone Number [facility] [place] [address] * HEPATIC FUNCTION PANEL (07/06/2016 3:29 PM CDT) Alkaline Phosphatase 73 38 - 126 U/L 07/06/2016 3:56 PM CDT [facility] ALT 22 13 - 61 U/L 07/06/2016 3:56 PM CDT [facility] AST 14 5 - 40 U/L 07/06/2016 3:56 PM CDT [facility] Protein Total 7.9 6.4 - 8.2 gm/dL 07/06/2016 3:56 PM CDT [facility] Albumin 3.9 3.4 - 5.0 gm/dL 07/06/2016 3:56 PM CDT [facility] Bilirubin Total 0.4 0.2 - 1.0 mg/dL 07/06/2016 3:56 PM CDT [facility] Bilirubin Direct 0.102 0 - 0.3 mg/dL 07/06/2016 3:56 PM CDT [facility] Blood BLOOD SPECIMEN / Unknown Lab Venipuncture / Unknown 07/06/2016 3:29 PM CDT 07/06/2016 3:37 PM CDT Dwayne Hdez [facility] LAB - CHEMISTRY OR DERABLES Performing Organization Address [facility] Co de Phone Number [facility] [address] [place] [address] * EVENT MONITOR (02/15/2016 2:58 PM WEB DESIGNER) Narrative Procedure Note Wendy Moulton MD - 01/10/2016 6:25 PM CDT [facility] Cardiology Department EVENT MONITOR PATIENT NAME: LUIS DANIEL FORD MR#: [id number] : 1955 AGE: 60 CSN: [id number] SEX: M ADMIT: 2016 INTERPRETING PHYSICIAN: WENDY [...] prolonged pauses. CONCLUSION: Normal 30-day event monitor. MD SUKHJINDER GAMING/SUSAN /[id number] EVENT MONITOR - Kale Rocha MD CARDIAC SERVI HUE ORDERABLES [facility] * IP CONSULT TO ELECTROPHYSIOLOGY (01/25/2016 6:23 PM WEB DESIGNER) Narrative Procedure Note Yvonne Sam, FORGING PRESS SETTER UP-SOW MANAGER - 01/10/2016 1:53 PM CDT CARDIAC ELECTROPHYSIOLOGY INITIAL INPATIENT CONSULTATION Patient Name: Luis Daniel Ford Admit Date: 2016 Primary Care Physician: Sebastian Noguera MD [address] [place] [address] Consult Date: 01/10/2016 Requesting Physician: Aj Chen MD Reason For Consultation: Bradycardia; symptomatic History of Present Illness: Luis Daniel Ford is a 61 year old male whose medical historyinclude HTN, DM (diagnosed 3 years ago) and Hypothyroidism. 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 Recent Labs Component Name 01/08/162009 TSH 11.9* Recent Labs Component Name 01/09/16 0333 01/09/16 0030 01/08/162009 TROPONIN <0.015 <0.015 <0.015 No results for input(s): CKMBNGML in the last 12188 hours. ECG: EKG Interp Final Normal sinus rhythm Normal ECG no prior tracing seen Confirmed by MD WILEY PHILLIP G. ([id number]) on 01/10/2016 7:55:51 AM QTc 441ms [...] of this very pleasantpatient. Yvonne Sam NP [facility] (phone) (fax) CC: Sebastian Noguera MD [address] [place] [address] Kale Rocha MD INPATIENT CON SULT ORDERABLES * CARDIAC RHYTHM STRIP ORDER (01/11/2016 10:23 PM CDT) Narrative 01/11/2016 10:23 PM CDT Ordered by an unspecified provider. Scanned Document CARDIAC SERVICES ORD ERABLES * ECHOCARDIOGRAM 2D WITH DOPPLER (01/10/2016 1:08 PM CDT) 01/10/2016 1:08 PM CDT [facility] CARDIAC SERVICES - 01/10/2016 2:51 PM CDT Transthoracic Echocardiogram 2D, M-mode, Doppler, and Color Doppler Patient: LUIS DANIEL FORD MR number: [id number] Height: 77 in Weight: 275.4 lb BSA: 2.57 m?? Study date: 10-Jan-2016 : 1955 Age: 61 years Gender: Male Race: Geotechnician: ??Wendy Morejon BS, RDCS Ordering Physician: ??Aj Chen MD Reading [...] Doppler Patient: LUIS DANIEL FORD MR number: [id number] Height: 77 in Weight: 275.4 lb BSA: 2.57 m?? Study date: 10-Jan-2016 : 1955 Age: 61 years Gender: Male Race: Geotechnician: DOMINGA Cummings, RDCS Ordering Physician: Aj Chen [...] 14:50:40 Kale Rocha MD ECHO ORDERABL ES [facility] [address] [place] [address] * (ABNORMAL) BASIC METABOLIC PANEL (CALCIUM TOTAL) (01/10/2016 3:27 AM CDT) Glucose 328(H) 74 - 106 mg/dL 01/10/2016 4:15 AM T [facility] Sodium 134(L) 136 - 145 mmol/L 01/10/2016 4:15 AM [facility] Potassium 4.0 3.5 - 5.1 mmol/L 01/10/2016 4:15 AM T [facility] Chloride 103 98 - 107 mmol/L 01/10/2016 4:15 AM [facility] CO2 25 22 - 31 mmol/L 01/10/2016 4:15 AM [facility] Calcium 8.4(L) 8.5 - 10.1 mg/dL 01/10/2016 4:15 AM [facility] Anion Gap 6 5 - 20 mmol/L 01/10/2016 4:15 AM [facility] BUN 15 7 - 21 mg/dL 01/10/2016 4:15 AM [facility] Creatinine 0.87 0.50 - 1.30 mg/dL 01/10/2016 4:15 AM [facility] eGFR by MDRD >60 >60 mL/min/1.7 3m2 01/10/2016 4:15 AM [facility] eGFR by MDRD >60 >60 mL/min/1.7 3m2 01/10/2016 4:15 AM [facility] Blood BLOOD SPECIMEN / Unknown Lab Venipuncture / Unknown 01/10/2016 3:27 AM CDT 01/10/2016 3:58 AM CDT Kayleigh Hall DO LAB - CHEMISTRY ORD ERABLES [facility] [address] [address] * ED CRITICAL CARE (2016 11:36 PM [...] TOX URINE PANEL (2016 11:22 PM CDT) [facility] Amphetamines Screen Urine Not Detected Not Detected 2016 11:41 PM CDT [facility] Barbiturates Screen Urine Not Detected Not Detected 2016 11:41 PM T [facility] Benzodiazepines Screen Urine Not Detected Not Detected 2016 11:41 PM T [facility] Cannabinoids Screen Urine Not Detected Not Detected 2016 11:41 PM T [facility] Cocaine Screen Urine Not Detected Not Detected 2016 11:41 PM T [facility] Methadone Screen Urine Not Detected Not Detected 2016 11:41 PM T [facility] Opiate Screen Urine Not Detected Not Detected 2016 11:41 PM [facility] Phencyclidine Screen Urine Not Detected Not Detected 2016 11:41 PM T [facility] Urine URINE / Unknown 2016 1 1:22 PM CDT 2016 11:25 PM CDT Narrative [facility] - 2016 11:41 PM CDT This [...] DO LAB - URINE CHEMISTR Y ORDERABLES [facility] [address] [place] [address] * (ABNORMAL) BLOOD GASES ART (2016 8:24 [...] 2016 8:32 PM CDT [facility] Molding Utility Worker ID VANGIE SPENCER 2016 8:32 PM CDT [facility] Blood ARTERIAL BLOOD SPECIMEN / Unknown 2016 8:24 PM CDT 2016 8:24 PM CDT Ingris Ascencio DO LAB - BLOOD GASES OR DERABLES [facility] [address] [place] [address], [facility] * NT-PRO BNP (2016 8:10 PM CDT) NT-proBNP 25.0 <300.0 pg/mL 2016 8:38 PM CDT [facility] Blood BLOOD SPECIMEN / Unknown Venipuncture / Unknown 2016 8:10 PM CDT 2016 8:18 PM CDT Narrative [facility] - 2016 8:38 PM CDT NT-proBNP [...] fibrillation. Ingris Ascencio DO LAB - CHEMISTRY ANTONIOLuca GÓMEZDAMIAN Performing Organization Address City/[facility]/ZIP Co de Phone Number [facility] [address] [place] [id number] * (ABNORMAL) LACTIC ACID BLOOD (2016 8:10 PM CDT) Lactic Acid 3.1(H) 0.7 - 2.1 mmol/L 2016 8:42 PM CDT [facility] Blood BLOOD SPECIMEN / Unknown Venipuncture / Unknown 2016 8:10 PM CDT 2016 8:18 PM CDT Ingris Ascencio DO LAB - CHEMISTRY ORDLuca GÓMEZDAMIAN [facility] [address] [place] [id number] * ALCOHOL ETHYL BLOOD (2016 8:10 PM CDT) Ethanol <3 <10 mg/dL 2016 8:38 PM CDT [facility] Ethanol Calculated <0.100 gm/dL 2016 8:38 PM CDT [facility] Comment:Not Calculated Blood BLOOD SPECIMEN / Unknown Venipuncture / Unknown 2016 8:10 PM CDT 2016 8:18 PM CDT Narrative [facility] - 2016 8:38 PM CDT Non Legal Serum Alcohol Ingris Ascencio DO LAB - CHEMISTRY ROBERTO POSADA Performing Organization Address City/[facility]/ZIP Co de Phone Number [facility] [address] [place] [address] * (ABNORMAL) TSH (2016 8:10 PM CDT) TSH 11.9(H) 0.358 - 3.740 uIU/mL 2016 8:51 PM CDT [facility] Blood BLOOD SPECIMEN / Unknown Venipuncture / Unknown 2016 8:10 PM CDT 2016 8:18 PM CDT Ingris Ascencio DO LAB - CHEMISTRY ROBERTO POSADA Performing Organization Address [facility]/ZIP Co de Phone Number [facility] [address] [address] Care Teams Buggy Driver Relationship Specialty Start [place] [address] Fara Ross [facility] [address] [place] [phone] PCP - General Family Medicine 04/07/24
--- OUTSIDE RECORDS SUMMARY | 2024-04-10 17:12 | XMS_ITS | Referral Summary ---
Author Organization [facility] Address [address] [place] [address] Care Team Providers Care Automatic Chief Name Role Phone Chuckie Chavira MD, Sebastian Grace Primary Care Provid er Source Comments [facility],non-owned Affiliates and Associated Physician Practices is amultiple site organization consisting of ambulatory clinics and hospital sitesin [place], [place], [place] and [place]. This disclosure is being madepursuant to the Care Everywhere program and may not contain all information available regarding this patient. Last updated 17.[facility] Encounters Date Type Department Care Team Description 04/07/2024 3:01 PM OPTICAL LABORATORY MANAGER Anesthesia Event [facility] ENDOSCOPY [address] [place] [address] Kimberly Guzman MD Dobbs, Kristin L, MEDICAL RECORD TRANSCRIBER-WALL COVERING INSTALLER 04/07/2024 2:46 PM OPTICAL LABORATORY MANAGER - 04/07/2024 3:16 PM OPTICAL LABORATORY MANAGER Surgery [facility] ENDOSCOPY [address] [place] [address] Erasto Urbina MD EGD 04/07/2024 Travel 04/07/2024 4:47 AM OPTICAL LABORATORY MANAGER - Present Hospital Encounter [facility] 7N ACUTE [address] [place] [address] Jamaal White DO Byrne, Laurie E, MD Morreale, Peter J III, MD Albrecht, Ryan, DO Mayer, Joshua C, DO Emergency Medicine from Last 3 Months Allergies No known active allergies Medications * [...] medical care, and heating? Patient declined 04/07/2024 [facility] - Occupational Stress [...] any time in the past 12 [facility], were you homeless or living in a skilled nursing (including now)? Patient declined 04/07/2024 Sex and Gender Information Value Date Recorded Sex Assigned at Not on file Gender Identity Not on file Sexual Orientation Not on file Last Filed Vital Signs Vital Sign Reading Time Taken Comments Blood Pressure 158/81 04/10/2024 11:34 AM OPTICAL LABORATORY MANAGER Pulse 83 04/10/2024 11:34 AM OPTICAL LABORATORY MANAGER Temperature 36.7 ??C (98.1 ??F) 04/10/2024 11:[address] Respiratory Rate 18 04/10/2024 11:34 AM OPTICAL LABORATORY MANAGER Oxygen Saturation 92% 04/10/2024 11:34 AM OPTICAL LABORATORY MANAGER Inhaled Oxygen Concentration - - Weight 97.5 kg (215 lb) 04/07/2024 6:19 PM OPTICAL LABORATORY MANAGER Height 188 cm (6' 2 ) 04/07/2024 6:19 PM OPTICAL LABORATORY MANAGER Body Mass Index 27.6 04/07/2024 6:19 PM OPTICAL LABORATORY MANAGER Functional Status Functional Status Response Date of [...] person have difficulty concentrating/remembering/making decisions? No 04/07/2024 Plan of Treatment Not on file Procedures The patient is currently admitted. The information in this section might not be complete until the patient is discharged. Procedure Name Priority Date/Time Associated Diagnosis Comments GLUCOSE - POINT OF CARE Routine 04/10/2024 12:24 PM OPTICAL LABORATORY MANAGER GLUCOSE - POINT OF CARE Routine 04/10/2024 8:44 AM OPTICAL LABORATORY MANAGER MAGNESIUM BLOOD Routine 04/10/2024 6:15 AM OPTICAL LABORATORY MANAGER RENAL FUNCTION PANEL Routine 04/10/2024 6:15 AM OPTICAL LABORATORY MANAGER CBC W AUTO DIFFERENTIAL Routine 04/10/2024 6:15 AM OPTICAL LABORATORY MANAGER GLUCOSE - POINT OF CARE Routine 04/10/2024 3:33 AM OPTICAL LABORATORY MANAGER GLUCOSE - POINT OF CARE Routine 04/10/2024 12:03 AM OPTICAL LABORATORY MANAGER GLUCOSE - POINT OF CARE Routine 04/09/2024 8:49 PM OPTICAL LABORATORY MANAGER GLUCOSE - POINT OF CARE Routine 04/09/2024 5:20 PM OPTICAL LABORATORY MANAGER XR HIP RIGHT 2VW OR MORE STAT 04/09/2024 1:29 PM OPTICAL LABORATORY MANAGER History of total right hip replacement GLUCOSE - POINT OF CARE Routine 04/09/2024 12:18 PM OPTICAL LABORATORY MANAGER GLUCOSE - POINT OF CARE Routine 04/09/2024 8:47 AM OPTICAL LABORATORY MANAGER MAGNESIUM BLOOD Routine 04/09/2024 5:56 AM OPTICAL LABORATORY MANAGER RENAL FUNCTION PANEL Routine 04/09/2024 5:56 AM OPTICAL LABORATORY MANAGER CBC W AUTO DIFFERENTIAL Routine 04/09/2024 5:56 AM OPTICAL LABORATORY MANAGER GLUCOSE - POINT OF CARE Routine 04/09/2024 4:15 AM OPTICAL LABORATORY MANAGER GLUCOSE - POINT OF CARE Routine 04/09/2024 12:09 AM OPTICAL LABORATORY MANAGER GLUCOSE - POINT OF CARE Routine 04/08/2024 8:47 PM OPTICAL LABORATORY MANAGER GLUCOSE - POINT OF CARE Routine 04/08/2024 4:56 PM OPTICAL LABORATORY MANAGER GLUCOSE - POINT OF CARE Routine 04/08/2024 11:19 AM OPTICAL LABORATORY MANAGER GLUCOSE - POINT OF CARE Routine 04/08/2024 8:51 AM OPTICAL LABORATORY MANAGER HEMOGLOBIN A1C Routine 04/08/2024 8:02 AM OPTICAL LABORATORY MANAGER TSH REFLEX FREE T4 Routine 04/08/2024 8: 02 AM OPTICAL LABORATORY MANAGER MAGNESIUM BLOOD Routine 04/08/2024 8:02 AM OPTICAL LABORATORY MANAGER RENAL FUNCTION PANEL Routine 04/08/2024 8:02 AM OPTICAL LABORATORY MANAGER CBC W AUTO DIFFERENTIAL Routine 04/08/2024 8:02 AM OPTICAL LABORATORY MANAGER GLUCOSE - POINT OF CARE Routine 04/08/2024 3:51 AM OPTICAL LABORATORY MANAGER GLUCOSE - POINT OF CARE Routine 04/07/2024 11:55 PM OPTICAL LABORATORY MANAGER URINALYSIS REFLEX TO MICROSCOPIC NO CULTURE Routine 04/07/2024 11:18 PM OPTICAL LABORATORY MANAGER CULTURE URINE Routine 04/07/2024 11:18 PM OPTICAL LABORATORY MANAGER HELICOBACTER PYLORI ANTIGEN FECES Routine 04/07/2024 11:18 PM OPTICAL LABORATORY MANAGER GLUCOSE - POINT OF CARE Routine 04/07/2024 7:15 PM OPTICAL LABORATORY MANAGER URINE MICROSCOPIC ONLY REFLEX TO CULTURE STAT 04/07/2024 5:46 PM OPTICAL LABORATORY MANAGER URINALYSIS REFLEX MICROSCOPIC REFLEX CULTURE STAT 04/07/2024 5:46 PM OPTICAL LABORATORY MANAGER EGD Routine 04/07/2024 2:55 PM OPTICAL LABORATORY MANAGER GA ED EGD FLEX TRANSORAL DX 04/07/2024 2:48 PM OPTICAL LABORATORY MANAGER Emphysematous gastritis GLUCOSE - POINT OF CARE Routine 04/07/2024 2:[address] ANGIO CHEST ABDOMEN PELVIS STAT 04/07/2024 10:13 AM OPTICAL LABORATORY MANAGER Abdominal pain, generalized CULTURE BLOOD Timed 04/07/2024 5:47 AM OPTICAL LABORATORY MANAGER CK BLOOD STAT 04/07/2024 5:36 AM OPTICAL LABORATORY MANAGER PT-INR [facility] STAT 04/07/2024 5:36 AM OPTICAL LABORATORY MANAGER LIPASE BLOOD STAT 04/07/2024 5:36 AM OPTICAL LABORATORY MANAGER LACTIC ACID BLOOD REFLEX TO REPEAT STAT 04/07/2024 5:36 AM OPTICAL LABORATORY MANAGER COMPREHENSIVE METABOLIC PANEL STAT 04/07/2024 5:36 AM OPTICAL LABORATORY MANAGER CBC W AUTO DIFFERENTIAL STAT 04/07/2024 5:36 AM OPTICAL LABORATORY MANAGER CULTURE BLOOD Timed 04/07/2024 5:36 AM OPTICAL LABORATORY MANAGER XR CHEST 1VW PORTABLE STAT 04/07/2024 5:16 AM OPTICAL LABORATORY MANAGER Abdominal pain, generalized ENDOSCOPY, COLON, SCREENING Routine 09/13/2020 8:05 AM CDT from Last 3 Months or Most Recently Relevant to Health Maintenance Results * (ABNORMAL) GLUCOSE - POINT OF CARE (04/10/2024 12:24 PM OPTICAL LABORATORY MANAGER) Only the most recent of18 resultswithin the time period is included. [facility] Glucose WB/POC 205(H) 70 - 99 mg/dL 04/10/2024 12:55 PM OPTICAL LABORATORY MANAGER [facility] LABORATORY [facility] Specimen Type Venous 04/10/2024 12:55 PM OPTICAL LABORATORY MANAGER [facility] Blood BLOOD SPECIMEN / Unknown 04/10/2024 12:24 PM OPTICAL LABORATORY MANAGER 04/10/2024 12:55 PM OPTICAL LABORATORY MANAGER Fadi Arita DO LAB - POINT OF CARE ORDERABLES Performing Organization Address [facility]/State/[facility] Co de Phone Number [address] [address], [facility] [phone] * (ABNORMAL) CBC W AUTO DIFFERENTIAL (04/10/2024 6:15 AM OPTICAL LABORATORY MANAGER) Only the most recent of4 resultswithin the time period is included. [facility] WBC 9.4 4.0 - 10.7 x10E9/L 04/10/2024 6:55 AM OPTICAL LABORATORY MANAGER [facility] RBC Count 4.01(L) 4.30 - 5.80 x10E12/L 04/10/2024 6:55 AM OPTICAL LABORATORY MANAGER [facility] Hemoglobin 12.0(L) 13.3 - 17.5 g/dL 04/10/2024 6:[address] [facility] Hematocrit 33.5(L) 38.7 - 51.1 % 04/10/2024 6:[address] [facility] MCV 83.5 80.0 - 98.0 fL 04/10/2024 6:[address] [facility] MCH 29.9 26.7 - 33.6 pg 04/10/2024 6:[address] [facility] MCHC 35.8 31.7 - 36.3 g/dL 04/10/2024 6:[address] [facility] RDW-CV 12.1 11.3 - 14.8 % 04/10/2024 6:[address] [facility] Platelet Count 336 150 - 420 x10E9/L 04/10/2024 6:[address] [facility] MPV 8.9 7.8 - 11.4 fL 04/10/2024 6:[address] [facility] Preliminary Absolute Neutrophil 6.64 1.60 - 7.50 x10E9/L 04/10/2024 6:[address] [facility] Neutrophil % 70.5 41.0 - 74.0 % 04/10/2024 6:[address] [facility] Lymphocyte % 13.0(L) 17.0 - 47.0 % 04/10/2024 6:[address] [facility] Monocyte % 7.7 3.0 - 11.0 % 04/10/2024 6:[address] [facility] Eosinophil % 3.1 0.0 - 7.0 % 04/10/2024 6:[address] [facility] Basophil % 1.3 0.0 - 1.6 % 04/10/2024 6:[address] [facility] Immature Granulocytes % 4.4(H) 0.0 - 1.0 % 04/10/2024 6:[address] [facility] Neutrophil Absolute 6.64 1.60 - 7.50 x10E9/L 04/10/2024 6:[address] [facility] Lymphocyte Absolute 1.22 1.00 - 4.40 x10E9/L 04/10/2024 6:[address] [facility] Monocyte Absolute 0.72 0.15 - 1.00 x10E9/L 04/10/2024 6:[address] [facility] Eosinophil Absolute 0.29 0.00 - 0.60 x10E9/L 04/10/2024 6:[address] [facility] Basophil Absolute 0.12 0.00 - 0.13 x10E9/L 04/10/2024 6:[address] [facility] Blood BLOOD SPECIMEN / Unknown Lab Venipuncture / Unknown 04/10/2024 6:15 AM OPTICAL LABORATORY MANAGER 04/10/2024 6:46 AM [facility] Bruce Cullen III, MD LAB - HEMATOLOG Y ORDERABLES [facility] [address] [place] [address], [facility] [phone] * (ABNORMAL) RENAL FUNCTION PANEL (04/10/2024 6:15 AM [facility]) Only the most recent of3 resultswithin the time period is included. BUN 6(L) 7 - 26 mg/dL 04/10/2024 7:[address] [facility] Creatinine 0.60(L) 0.71 - 1.16 mg/dL 04/10/2024 7:[address] [facility] Sodium 135(L) 136 - 145 mmol/L 04/10/2024 7:[address] [facility] Potassium 2.7(L) 3.5 - 4.5 mmol/L 04/10/2024 7:[address] [facility] Chloride 98 98 - 107 mmol/L 04/10/2024 7:[address] [facility] CO2 25 22 - 29 mmol/L 04/10/2024 7:[address] [facility] Glucose 132(H) 70 - 99 mg/dL 04/10/2024 7:[address] [facility] Albumin 2.1(L) 3.4 - 5.0 g/dL 04/10/2024 7:[address] [facility] Calcium 7.7(L) 8.4 - 10.2 mg/dL 04/10/2024 7:[address] [facility] Phosphorus 3.1 2.8 - 5.1 mg/dL 04/10/2024 7:[address] [facility] Anion Gap 12 6 - 16 04/10/2024 7:[address] [facility] BUN/Creatinine Ratio 10 7 - 23 04/10/2024 7:[address] [facility] Osmolality Calculated 279 275 - 295 mOsm/kg 04/10/2024 7:[address] [facility] eGFR by CKD-EPI >90 >=90 mL/min/1.7 3 m2 04/10/2024 7:[address] [facility] Blood BLOOD SPECIMEN / Unknown Lab Venipuncture / Unknown 04/10/2024 6:15 AM OPTICAL LABORATORY MANAGER 04/10/2024 6:46 AM OPTICAL LABORATORY MANAGER Bruce Cullen III, MD LAB - CHEMISTRY ORDERABLES [facility] [address] [place] [address], [place] [phone] * MAGNESIUM BLOOD (04/10/2024 6:15 AM OPTICAL LABORATORY MANAGER) Only the most recent of3 resultswithin the time period is included. Magnesium 1.7 1.6 - 2.6 mg/dL 04/10/2024 7:[address] [facility] Blood BLOOD SPECIMEN / Unknown Lab Venipuncture / Unknown 04/10/2024 6:15 AM OPTICAL LABORATORY MANAGER 04/10/2024 6:46 AM OPTICAL LABORATORY MANAGER Bruce Cullen III, MD LAB - CHEMISTRY ORDERABLES [facility] [address] [place] [address], [place] [phone] * XR Hip Right 2Vw or More (04/09/2024 1:29 PM OPTICAL LABORATORY MANAGER) Anatomical Region Laterality Modality Pelvis, Lower Extremity Digital Radiography 04/10/2024 2:03 AM OPTICAL LABORATORY MANAGER Impressions 04/10/2024 2:03 AM OPTICAL LABORATORY MANAGER IMPRESSION: There is a right hip 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 There is no periprosthetic fracture or osteolysis. > Interpreting Provider: Brock Moody MD on 04/10/2024 2:03 AM Narrative 04/10/2024 2:03 AM OPTICAL LABORATORY MANAGER PROCEDURE: ??XR HIP RIGHT 2VW OR MORE [...] TSH REFLEX FREE T4 (04/08/2024 8:02 AM OPTICAL LABORATORY MANAGER) TSH 2.481 0.350 - 4.940 uIU/mL 04/08/2024 9:26 AM OPTICAL LABORATORY MANAGER [facility] Blood BLOOD SPECIMEN / Unknown Lab Venipuncture / Unknown 04/08/2024 8:02 AM OPTICAL LABORATORY MANAGER 04/08/2024 8:41 AM OPTICAL LABORATORY MANAGER Bruce Cullen III, MD LAB - CHEMISTRY ORDERABLES [facility] [address] [place] [address], [facility] [phone] * (ABNORMAL) HEMOGLOBIN A1C (04/08/2024 8:02 AM OPTICAL LABORATORY MANAGER) Hemoglobin A1c 9.4(H) <=5.6 % 04/08/2024 1:21 PM OPTICAL LABORATORY MANAGER [facility] Estimated Average Glucose 223 mg/dL 04/08/2024 1:21 PM OPTICAL LABORATORY MANAGER [facility] LABORATORY [facility] Comment: HbA1c Interpretation: Normal : < 5.7% Pre-diabetes: 5.7-6.4% Diabetes: Equal to or greater than 6.5% Test results diagnostic of diabetes should be repeated for confirmation. Treatment target values recommended by ADA and other clinical organizations should be used to evaluate metabolic control in patients. Reference: [place] [employer], Standards of Care in Diabetes -2020 In patients 70 years and older consider HbA1c target range of 7.0-7.5% (Reference: Sarwat Rodrigues et al. JAMDA. 2012) The Sebia assay for the measurement of HbA1c is a National Glycohemoglobin Standardization Program (NGSP) certified method. Blood BLOOD SPECIMEN / Unknown Lab Venipuncture / Unknown 04/08/2024 8:02 AM OPTICAL LABORATORY MANAGER 04/08/2024 8:40 AM OPTICAL LABORATORY MANAGER Bruce Cullen III, MD LAB - CHEMISTRY ORDERABLES Performing Organization Address City/[facility]/ZIP Co de Phone Number [facility] [address] [place] [address], [facility] [phone] * HELICOBACTER PYLORI ANTIGEN FECES (04/07/2024 11:18 PM OPTICAL LABORATORY MANAGER) Pathologist [facility] Helicobacter pylori Antigen Stool Negative Negative 04/09/2024 11:12 PM OPTICAL LABORATORY MANAGER [facility] [employer] ([facility]) Comment: Performed By: [employer] [address] [place] [address] Copy Machine Operator: Vern Montiel MD, PhD CLIA Number: [id number] Stool STOOL SPECIMEN / Unknown Collection / Unknown 04/07/2024 11:18 PM OPTICAL LABORATORY MANAGER 04/07/2024 11:22 PM OPTICAL LABORATORY MANAGER Emanuel Dempsey DO LAB - MICROBIOLOGY O RDERABLES Performing Organization Address City/[facility]/ZIP Co de Phone Number [facility]) [address] [place] [address] * (ABNORMAL) URINALYSIS REFLEX TO MICROSCOPIC NO CULTURE (04/07/2024 11:18 PM OPTICAL LABORATORY MANAGER) Color UA Jennifer(A) Straw, Yellow 04/07/2024 11:[address] [facility] Clarity UA Slt Cloudy(A) Clear 04/07/2024 11:[address] [facility] Specific [place] UA 1.040(H) 1.005 - 1.030 04/07/2024 11:[address] [facility] pH UA 5.0 5.0 - 8.0 pH 04/07/2024 11:[address] [facility] Protein UA 1+(A) Negative 04/07/2024 11:[address] [facility] Glucose UA 1+(A) Negative 04/07/2024 11:[address] [facility] Ketone UA 2+(A) Negative 04/07/2024 11:[address] [facility] Bilirubin UA Negative Negative 04/07/2024 11:[address] [facility] Blood UA 1+(A) Negative 04/07/2024 11:[address] [facility] Nitrite UA Negative Negative 04/07/2024 11:[address] [facility] Leukocyte Esterase Negative Negative 04/07/2024 11:[address] [facility] Urobilinogen UA 4.0(A) Negative mg/dL 04/07/2024 11:[address] [facility] RBC UA 11-20(A) None Seen, 0-2, 3-5 /HPF 04/07/2024 11:[address] [facility] WBC UA 0-5 None Seen, 0-5 /HPF 04/07/2024 11:[address] [facility] Squamous Epithelial Cells UA 0-2 None Seen, 0-2, 3-5 /HPF 04/07/2024 11:[address] [facility] Mucus UA 2+ /LPF 04/07/2024 11:[address] [facility] Urine URINE SPECIMEN OBTAINED VIA [employer] URINARY CATHETER / Unknown Collection / Unknown 04/07/2024 11:18 PM OPTICAL LABORATORY MANAGER 04/07/2024 11:23 PM [facility] - 04/07/2024 11:38 PM OPTICAL LABORATORY MANAGER Emanuel Dempsey DO LAB - URINALYSIS ORD ERABLES [facility] [address] [place] [address], [facility] [phone] * CULTURE URINE (04/07/2024 11:18 PM OPTICAL LABORATORY MANAGER) Culture Urine No growth (<100 CFU/mL) ANTONIO 04/09/2024 6:12 AM OPTICAL LABORATORY MANAGER [facility] MICROBIOLOGY Urine URINE SPECIMEN OBTAINED VIA [employer] URINARY CATHETER / Unknown Collection / Unknown 04/07/2024 11:18 PM OPTICAL LABORATORY MANAGER 04/07/2024 11:23 PM OPTICAL LABORATORY MANAGER Emanuel Dempsey DO LAB - MICROBIOLOGY O RDERABLES Performing Organization Address City/[facility]/ZIP Co de Phone Number [facility] MICROBIOLOGY [address] [place] [address], [facility] [phone] * (ABNORMAL) URINE MICROSCOPIC ONLY REFLEX TO CULTURE (04/07/2024 5:46 PM OPTICAL LABORATORY MANAGER) Reflex Status Culture not indicated 04/07/2024 6:[address] [facility] RBC UA 21-50(A) None Seen, 0-2, 3-5 /HPF 04/07/2024 6:[address] [facility] WBC UA 6-10(A) None Seen, 0-5 /HPF 04/07/2024 6:[address] [facility] Bacteria UA 1+(A) None /HPF 04/07/2024 6:[address] [facility] Squamous Epithelial Cells UA 0-2 None Seen, 0-2, 3-5 /HPF 04/07/2024 6:[address] [facility] Mucus UA 1+ /LPF 04/07/2024 6:[address] [facility] Amorphous Crystals Rare(A) None /HPF 04/07/2024 6:[address] [facility] Urine URINE SPECIMEN OBTAINED VIA [employer] URINARY CATHETER / Unknown Collection / Unknown 04/07/2024 5:46 PM OPTICAL LABORATORY MANAGER 04/07/2024 5:55 PM OPTICAL LABORATORY MANAGER Narrative [facility] - 04/07/2024 6:08 PM OPTICAL LABORATORY MANAGER Jamaal White DO LAB - URINALYSIS ORD ERABLES [facility] [address] [place] [address], [facility] [phone] * (ABNORMAL) URINALYSIS REFLEX MICROSCOPIC REFLEX CULTURE (04/07/2024 5:46 PM OPTICAL LABORATORY MANAGER) Color UA Jennifer(A) Straw, Yellow 04/07/2024 6:[address] [facility] Clarity UA Slt Cloudy(A) Clear 04/07/2024 6:[address] [facility] Specific [place] UA >1.060(H) 1.005 - 1.030 04/07/2024 6:[address] [facility] Comment:Specific gravity res ults confirmed by refractometer. pH UA 5.0 5.0 - 8.0 pH 04/07/2024 6:[address] [facility] Protein UA 2+(A) Negative 04/07/2024 6:[address] [facility] Glucose UA 1+(A) Negative 04/07/2024 6:[address] [facility] Ketone UA 1+(A) Negative 04/07/2024 6:[address] [facility] Bilirubin UA Negative Negative 04/07/2024 6:[address] [facility] Blood UA 1+(A) Negative 04/07/2024 6:[address] [facility] Nitrite UA Negative Negative 04/07/2024 6:[address] [facility] Leukocyte Esterase Negative Negative 04/07/2024 6:[address] [facility] Urobilinogen UA 4.0(A) Negative mg/dL 04/07/2024 6:[address] [facility] Urine URINE SPECIMEN OBTAINED VIA [employer] URINARY CATHETER / Unknown Collection / Unknown 04/07/2024 5:46 PM OPTICAL LABORATORY MANAGER 04/07/2024 5:55 PM [facility] - 04/07/2024 6:09 PM [facility] Jamaal White DO LAB - URINALYSIS ORD ERABLES [facility] [address] [place] [address], [facility] [phone] * EGD (04/07/2024 2:55 PM OPTICAL LABORATORY MANAGER) Report Endoscopy POC Endoscopy Department Report _ [...] Procedure Code(s): ? --- Professional --- ? 91836, Esophagogastroduod enoscopy, flexible, transoral; diagnostic, ? including collection of specimen(s) by brushing or washing, when ? performed (separate procedure) Diagnosis Code(s): ?--- Professional --- ?K31.89, Other diseases of stomach and duodenum ?K25.9, Gastric ulcer, unspecified as acute or ?chronic, without hemorrhage or perforation ?K20.90, Esophagitis, unspecified without bleeding ?R93.3, Abnormal findings on diagnostic imaging of ?other parts of digestive tract CPT copyright 2021 [place]. All rights reserved. The codes documented in this report are preliminary and upon cabbage salter review may be revised to meet current compliance requirements. Erasto Filipelisa Urbina, 04/07/2024 3:31:30 PM Note Initiated On: 04/07/2024 2:55 PM Number of Addenda: 0 ? [facility] ? [address] [place] [address] [facility] 04/07/2024 2:55 PM OPTICAL LABORATORY MANAGER Emanuel Dempsey DO GI PROCEDURE ORDERAB LES [facility] * CT Angio Chest Abdomen Pelvis (04/07/2024 10:13 AM OPTICAL LABORATORY MANAGER) Anatomical Region Laterality Modality Chest, Abdomen, Pelvis Computed Tomography 04/07/2024 10:3 5 AM OPTICAL LABORATORY MANAGER Impressions 04/07/2024 11:33 AM OPTICAL LABORATORY MANAGER Impression: 1.The stomach is distended with air [...] mm. > Dictated by Karthikeyan Barreto MD, (associate professor of radiology). I, Tara Souza MD have personally reviewed and interpreted this examination/study. > Interpreting Provider: Tara Souza MD on 04/07/2024 11:33 AM Narrative 04/07/2024 11:33 AM OPTICAL LABORATORY MANAGER PROCEDURE: ??CT ANGIO CHEST ABDOMEN PELVIS, DATE/TIME OF EXAM: ??04/07/2024 10:13 AM, LOCATION ??[facility] INDICATION: R10.84: Abdominal pain, generalized [...] DATE/TIME OF EXAM: 04/07/2024 10:13 AM, LOCATION [facility] INDICATION: R10.84: Abdominal pain, generalized [...] mm. > Dictated by Karthikeyan Barreto MD, (associate professor of radiology). I, Tara Souza MD have personally reviewed and interpreted this examination/study. > Interpreting Provider: Tara Souza MD on 04/07/2024 11:33 AM Rachel Jay MD CT ORDERABLES * (ABNORMAL) PT-INR [facility] (04/07/2024 5:36 AM OPTICAL LABORATORY MANAGER) PT 17.1(H) 12.1 - 14.8 Seconds 04/07/2024 6:[address] [facility] INR 1.4 See Comment 04/07/2024 6:[address] [facility] Comment:The suggested therap eutic range for standard coumadin (warfarin) therapy is an INR of 2.0-3.0. For high-risk patients (Mechanical Mitral Valve Prosthesis, etc.), the suggested prophylactic therapeutic range is an INR of 2.5-3.5. Blood BLOOD SPECIMEN / Unknown Venipuncture / Unknown 04/07/2024 5:36 AM OPTICAL LABORATORY MANAGER 04/07/2024 6:31 AM OPTICAL LABORATORY MANAGER Jamaal White DO LAB - COAGULATION OR DERABLES Performing Organization Address [facility]/ZIP Co de Phone Number [address] [address], [facility] [phone] * LACTIC ACID BLOOD REFLEX TO REPEAT (04/07/2024 5:36 AM OPTICAL LABORATORY MANAGER) Lactic Acid-Stat 0.8 <=2.0 mmol/L 04/07/2024 7:[address] [facility] Blood BLOOD SPECIMEN / Unknown Venipuncture / Unknown 04/07/2024 5:36 AM OPTICAL LABORATORY MANAGER 04/07/2024 6:31 AM OPTICAL LABORATORY MANAGER Jamaal White DO LAB - CHEMISTRY ORDE RABLES Performing Organization Address [facility]/ZIP Co de Phone Number [address] [phone], [facility] [phone] * (ABNORMAL) COMPREHENSIVE METABOLIC PANEL (04/07/2024 5:36 AM OPTICAL LABORATORY MANAGER) BUN 17 7 - 26 mg/dL 04/07/2024 7:[address] [facility] Creatinine 0.65(L) 0.71 - 1.16 mg/dL 04/07/2024 7:[address] [facility] Sodium 134(L) 136 - 145 mmol/L 04/07/2024 7:[address] [facility] Potassium 4.5 3.5 - 4.5 mmol/L 04/07/2024 7:[address] [facility] Chloride 103 98 - 107 mmol/L 04/07/2024 7:[address] [facility] CO2 23 22 - 29 mmol/L 04/07/2024 7:[address] [facility] Glucose 193(H) 70 - 99 mg/dL 04/07/2024 7:[address] [facility] Calcium 8.1(L) 8.4 - 10.2 mg/dL 04/07/2024 7:[address] [facility] Protein Total 5.2(L) 6.0 - 8.3 g/dL 04/07/2024 7:[address] [facility] Albumin 2.1(L) 3.4 - 5.0 g/dL 04/07/2024 7:[address] [facility] Bilirubin Total 0.7 0.2 - 1.2 mg/dL 04/07/2024 7:[address] [facility] Alkaline Phosphatase 58 40 - 150 U/L 04/07/2024 7:[address] [facility] ALT 11 5 - 55 U/L 04/07/2024 7:[address] [facility] AST 13 5 - 34 U/L 04/07/2024 7:[address] [facility] Anion Gap 8 6 - 16 04/07/2024 7:[address] [facility] BUN/Creatinine Ratio 26(H) 7 - 23 04/07/2024 7:[address] [facility] Osmolality Calculated 285 275 - 295 mOsm/kg 04/07/2024 7:[address] [facility] Albumin/Globulin Ratio 0.7(L) 1.1 - 2.3 04/07/2024 7:[address] [facility] eGFR by CKD-EPI >90 >=90 mL/min/1.7 3 m2 04/07/2024 7:[address] [facility] Blood BLOOD SPECIMEN / Unknown Venipuncture / Unknown 04/07/2024 5:36 AM OPTICAL LABORATORY MANAGER 04/07/2024 6:31 AM [facility] Jamaal White DO LAB - CHEMISTRY ROBERTO POSADA [facility] [address] [place] [address], [facility] [phone] * (ABNORMAL) LIPASE BLOOD (04/07/2024 5:36 AM OPTICAL LABORATORY MANAGER) Lipase 4(L) 8 - 78 U/L 04/07/2024 7:02 AM OPTICAL LABORATORY MANAGER [facility] Blood BLOOD SPECIMEN / Unknown Venipuncture / Unknown 04/07/2024 5:36 AM OPTICAL LABORATORY MANAGER 04/07/2024 6:31 AM OPTICAL LABORATORY MANAGER Narrative [facility] - 04/07/2024 7:02 AM OPTICAL LABORATORY MANAGER Lipase results from the [employer] Al[employer] analyzer may not be comparable with other methodologies. Jamaal White DO LAB - CHEMISTRY ROBERTO GÓMEZDAM[facility] [address] [address], [facility] [phone] * (ABNORMAL) CK BLOOD (04/07/2024 5:36 AM OPTICAL LABORATORY MANAGER) Pathologist [facility] CK Total 25(L) 30 - 200 U/L 04/07/2024 7:[address] [facility] Blood BLOOD SPECIMEN / Unknown Venipuncture / Unknown 04/07/2024 5:36 AM OPTICAL LABORATORY MANAGER 04/07/2024 6:31 AM OPTICAL LABORATORY MANAGER Jamaal White LAB - CHEMISTRY ANTONIOLuca GÓMEZDAMIAN [address] [address], [facility] [phone] * XR CHEST 1VW PORTABLE (04/07/2024 5:16 AM OPTICAL LABORATORY MANAGER) Anatomical Region Laterality Modality Chest Digital Radiogra phy 04/07/2024 6:04 AM OPTICAL LABORATORY MANAGER Impressions 04/07/2024 9:31 AM OPTICAL LABORATORY MANAGER IMPRESSION: Low lung volumes bilaterally with bronchovascular [...] verification. > Dictated by Pablo Potter DO (Shade Classifier), 04/07/2024 6:23 AM. INessa MD have personally reviewed and interpreted this examination/study. > Interpreting Provider: Nessa Hickman MD on 04/07/2024 9:31 AM Narrative 04/07/2024 9:31 AM OPTICAL LABORATORY MANAGER PROCEDURE: ??XR CHEST 1VW PORTABLE, DATE/TIME OF EXAM: ??04/07/2024 5:16 AM, LOCATION ??[facility] INDICATION: R10.84: Abdominal pain, generalized ADDITIONAL CLINICAL INFORMATION: Ordering Provider Reason For Exam: ??gastric/esophageal perf suspected COMPARISON: None. Procedure Note Nessa Hickman MD - 04/07/2024 PROCEDURE: XR CHEST 1VW PORTABLE, DATE/TIME OF EXAM: 04/07/2024 5:16AM, LOCATION [facility] INDICATION: R10.84: Abdominal pain, generalized [...] verification. > Dictated by Pablo Potter DO (Shade Classifier), 04/07/2024 6:23 AM. I, Nessa Hickman MD have personally reviewed and interpreted this examination/study. > Interpreting Provider: Nessa Hickman MD on 04/07/2024 9:31 AM Jamaal Montgomeryelizabeth DO DIAGNOSTIC IMAGING O RDERABLES * ENDOSCOPY, [...] the physician, the nurse and the ? key cutter in the procedure room. Mental Status ? [...] Procedure Code(s): ? --- Professional --- ? 36725, Colonoscopy, flexible; with removal of tumor(s), polyp(s), or ? other lesion(s) by snare technique ? --- Technical --- ? 83444, Colonoscopy, flexible; with removal of tumor(s), polyp(s), [...] abscess ? without bleeding CPT copyright 2019 [employer]. All rights reserved. The codes documented in this report are preliminary and upon cabbage salter review may be revised to meet current compliance requirements. Dr. Tr Fofana MD Tr Fofana MD 09/13/2020 9:33:03 AM This report has been signed electronically. Number of Addenda: 0 Note Initiated On: 09/13/2020 8:05 AM [facility] ENDOSCOPY 09/13/2020 8:05 AM CDT Tr Fofana MD GI PROCEDURE ORDERA [facility] [address] from Last 3 Months or Most Recently Relevant to Health Maintenance Advance Directives * Full Code (Latest Code Status on File) Date Activated Date Inactivated Comments 04/07/2024 12:01 PM * Full Code Date Activated Date Inactivated Comments 01/09/2016 12:26 AM 01/10/2016 7:40 PM Care Teams Automatic Chief Relationship Specialty Start [place] [id number] [address] [facility] [address] [place] [id number] PCP - General Family Medicine 04/07/24
--- OUTSIDE RECORDS SUMMARY | 2024-04-10 17:13 | XMS_ITS | Encounter Summary ---
Author Organization [facility] Address [address] [place] [address] Care Team Providers Care Haul Cane Brakeman Name Role Phone Chuckie Chavira MD, Sebastian Grace Primary Care Provid er Reason for Visit * Reason Comments Pain Abdominal 69 y/o M BIBEMS from [facility] with concerns for ischemic gastritis. Patient recently had a fall at home and remained down for a few days, underwent hemiarthroplasty. Per OSH, scans showed abdominal distention. Presents without abdominal pain, GCS 15. * Auth/Cert (Routine) Specialty Diagnoses / Procedures Referred By Bernardino t Referred To Contact Diagnoses gastritis Referral ID Status Reason Start Date Expiration Date Visits Re quested Visits Authorized [id number] 1 1 Encounter Details Date Type Department Care Team (Late st Contact Info) Description 04/07/2024 2:46 PM BUSH HOG OPERATOR - 04/07/2024 3:16 PM BUSH HOG OPERATOR Surgery [facility] ENDOSCOPY [address] [place] [id number] Erasto Urbina MD [facility] [phone] EGD Surgery Details Date/Time Status Location OR Service Patient Class Case Class Case Type Trauma Case? 04/07/2024 2:46 PM Posted [facility] Endoscopy ENDO 4 Gastroenterology Inpatient Urgent < 24 Hrs Panel 1 Procedure LRB Anes Op Region Wound Class Comments EGD N/A MAC Esophagus Clean Contaminated Duodenal Erythema and Erosion Gastric Erythema and Ulcers Esophagitis Surgeon Surgeon Role Service Panel Erasto Urbina MD Primary Gastroenterol ogy 1 documented in this encounter Social History [...] medical care, and heating? Patient declined 04/07/2024 [employer] [facility] - Occupational Stress [...] any time in the past 12 m the [facility], were you homeless or living in a custodial (including now)? Patient declined 04/07/2024 Sex and Gender Information Value Date Recorded Sex Assigned at Not on file Gender Identity Not on file Sexual Orientation Not on file documented as of this encounter Last Filed Vital Signs Vital Sign Reading Time Taken Comments Blood Pressure 121/69 04/07/2024 2:45 PM BUSH HOG OPERATOR Pulse 87 04/07/2024 2:45 PM BUSH HOG OPERATOR Temperature 36.9 ??C (98.4 ??F) 04/07/2024 2:32 PM CS T Respiratory Rate 15 04/07/2024 2:45 PM BUSH HOG OPERATOR Oxygen Saturation 94% 04/07/2024 2:45 PM BUSH HOG OPERATOR Inhaled Oxygen Concentration - - Weight 97.5 kg (215 lb) 04/07/2024 4:51 AM BUSH HOG OPERATOR Height 188 cm (6' 2 ) 04/07/2024 4:51 AM BUSH HOG OPERATOR Body Mass Index 27.6 04/07/2024 6:19 PM BUSH HOG OPERATOR documented in this encounter Functional Status Functional [...] as of this encounter Progress Notes * Danny Encinas, OT - 04/10/2024 3:47 PM CST [facility] Occupational Therapy Progress Note Patient: Luis Daniel Ford Med Record Number: [id number] Date of : 1955 Age: [age] year old Recommendations: Discharge OT Discharge Recommendations: Patient would benefit from intensive 3-hour multidisciplinary therapy This recommendation is made due to ongoing intensive OT functional needs: not at baseline due to impaired ability to complete ADL's Recommended Transportation Method: Private Car Nurse contacted regarding patient status and/or discharge plan. Activity Level: as tolerated PRECAUTIONS: falls, WBAT SUBJECTIVE: Pt reports he has been reclined when sitting in a chair. Pt reports the lightheadednessis resolved with the OSMAR hose. Pain Assessment: Pain Assessment Pain Rating Score #1: ( soreness in coxyx) OBJECTIVE: At start of therapy session, patient found in bed General Appearance: HOB ~20 degrees Observations: on toilet pt c/o lightheadedness requiring >5 min rest to resolve, then states he is able to walk back to the bed Mental Status/Cognition: Cognition: (O x 4, demo good safety awarenss) Mobility: a gait belt and non-slip socks were used for all out of bed activity this date. Bed Mobility: Supine to Sit: Stand By Assist with HOB flat Sit to Supine: Complete [place] Transfers: Sit to Stand: Minimal Assistance Stand to Sit: Minimal Assistance Toilet Transfers: Complete [place] Functional Ambulation: Patient ambulated to/from bathroom with min assist using ww. Balance: Sitting - Static: Good Sitting - Dynamic: Good - Standing - Static: Good - Standing - Dynamic: Fair + (with ww when not feeling dizzy/lightheaded) Activities of Daily Living: Feeding: Complete [place] Upper Body Dressing: Set-up;Stand By Assist Lower Body Dressing: Minimal Assistance (standing portion, declined AE for R sock) Toileting: Minimal Assistance Splint Issued/Checked: none ACTIVITY TOLERANCE: fair AM-PAC 6 Clicks Daily Activity Raw Score:: 20 TREATMENT/INTERVENTIONS: ADL training Functional transfer training HEP training Instructed pt in HEP involving sit to stands with 1 rep completed from toilet to promote bowel motility then c/o lightheadedness EDUCATION: While performing OT, Patient was instructed in:functional mobility training, self-care training, home exercise program Presented to patient who demonstrates Good understanding of instructions given. INFORMED CONSENT TO TREATMENT: Plan of care including recommended therapy, goals and frequency, discussed with patient who understands and agrees to proceed. ASSESSMENT: Functional performance limited due to: limited activities of daily living, pain, decreased functional mobility, and decreased endurance and activity tolerance. Short Term Goals: Goal Formation With patient Patient will perform grooming standing at sink and with stand by assist Patient will perform lower extremity dressing with stand by assist Patient will perform toileting with minimal assist Patient will transfer to standard toilet with stand by assist Patient will perform bed to chair with stand by assist Custodial Goal(s): Patient to discharge to appropriate next level of inpatient care. Plan: Patient continues to benefit from skilled therapy services. If patient is discharged from the facility, this note serves as a discharge summary if further occupational therapy visits did not occur. Refer to filed flowsheet for further details. Following therapy session, patient left in bed. HOG OPERATOR * Jose Arteaga MSW - 04/10/2024 3:19 PM CST Social Work Progress Note Discharge Plan Disposition: ARU Transportation: Transportation at discharge: Ambulance Anticipated Discharge Date: 04/11/2024 Contacts: Extended Emergency Contact Information Primary Emergency Contact: Iwona Ford Address: [address] [place] [phone] [facility] [place] Relation: Spouse Preferred language: German Finance Analyst needed? No Comments: SW [facility] Alesh[phone] and [facility] is saying they are able toaccept this patient, but there's a few barriers to discharge for them: 1) Patient will have to not be Orthostatic. 2) What is causing the Potassium to be so low? 3) Patient will need to be 24 hours free of the IV meds. 4) The Impaction will need to be completely gone before they can admit. RADHA will continue to follow up. Update: Per Katy Lambert MD, It may take a few days for the potassium to improve, may be due to himnot eating well recently. Impaction is improved, he is now stooling. And we are treating orthostatic hypotension, will need to see how the compression stockings do FREDY Joyner [phone] HOG OPERATOR * Leah Khalil RN - 04/10/2024 1:53 PM CST Care Coordination Progress Note Expected Discharge Date: 04/11/2024 Discharge Plan: AR Per chart review, Not medically stable to discharge. Recommended Protonix 40 mg IV BID for 3 days and H.pylori stool antigen test. Ortho consulted to determine WB status. CM to continue following forplanning of d/c needs. Family Support (Name and Phone): Extended Emergency Contact Information Primary Emergency Contact: Iwona Ford [address]: [address] [place], [place] [id number] [place] Relation: Spouse Preferred language: German Finance Analyst needed? No Transportation at Discharge: Ambulance: READMISSION RISK SCORE is 14 at 1:53 PM 04/10/2024.: Name: Leah Khalil RN HOG OPERATOR * Krista Norton, PT - 04/10/2024 1:20 PM CST [facility] Physical Therapy Progress Note Patient: Luis Daniel Ford Med Record Number: [id number] Date of : 1955 Age: [age] year old PPE worn by staff: gloves;mask - procedural Tech: none Recommendations: Discharge PT Discharge Recommendations: Patient would benefit from intensive 3-hour multidisciplinary therapy This recommendation is made due to ongoing intensive PT functional needs: ability to actively participate in intensive therapy 3 hours/day, 5 days a week;motivated to participate in therapy;functional mobility is significantly below baseline Patient is being recommended for post acute care, therefore DME recommendations will be made at thenext level of care. SUBJECTIVE: Subjective: pt agreeable to therapy Pain Assessment: Pain Assessment Pain Scale/Observation: 0-10 Pain Rating Score #1: 3 Sedation Level: 1-Awake and alert Pain Location : Right;Hip Pain Descriptors: Sore Non-Pharmacological Intervention: Rest;Reposition PRECAUTIONS: Weight Bearing Status: (WBAT R LE) Activity Level: Activity as Tolerated OBJECTIVE: At start of therapy session, patient found in bed and with no alarm General Appearance: older male supine in bed Vitals: (*Assess the 3 levels of oxygen saturations both for room air and 02 unless rest on room air is 88% or less). Rest: supine BP: 162/89 (108) HR: 92 Sp02 Sp02 96% Room Air Ex/Gait/Activity Without 02: sitting BP: 143/94 (110): sitting 136/90 (104) HR: 105 103 Sp02 99% Room Air Post Activity BP: 136/102 (111) HR: 95 Sp02 Sp02 98% Room Air Observations: pt with mild c/o dizziness after standing Mental Status/Cognition: Level of Consciousness-Adult: (A&Ox4) Attention Span: Appears intact Following Commands: Follows all commands and directions without difficulty Mobility: A gait belt and non-slip socks were used for all out of bed activity this date. B osmar hose applied in supine Bed Mobility: Supine to Sit: Stand By Assist with HOB in semi-fowlers position Transfers: Sit to Stand: Minimal Assistance Stand to Sit: Minimal Assistance Gait: Weight Bearing Status: (WBAT R LE) Distance Ambulated (ft): 4 FEET (gait distance limited by dizziness) Ambulation: Assistive Device: Gait Belt;Walker-2 Wheeled Ambulation: Level of Assistance: Minimum Assistance Ambulation: Gait Deviations: Base of Support - Decreased;Jo-Ann - Decreased;Step Length - Decreased Comments: pre-gait marching in place with w/w support x 5 reps to assess dizziness Balance: Balance Scales/Tests Used: Sitting: Static/Dynamic;Standing: Static/Dynamic Sitting - Static: Good Sitting - Dynamic: Good - Standing - Static: Fair +;With Both Upper Extremity's Support Standing - Dynamic: Fair ACTIVITY TOLERANCE: Activity Tolerance: Requires seated rest breaks TREATMENT/INTERVENTIONS: ROM B LE AROM x 10 reps supine and sitting: ankle pumps, quad and glut sets, heel slides, hip abd/add, LAQs, bed mobility training, transfer training, gait training, balance activities, and monitoring of vitals AM-PAC 6 Clicks Mobility Raw Score:: 17 EDUCATION: While performing PT, Patient was instructed in:functional mobility training, weight bearing status, safety awareness/fall precautions Presented to patient who demonstrates Good understanding of instructions given. ASSESSMENT: Patient would benefit from additional Physical Therapy sessions to achieve the following functionalgoals to enhance independence. Short Term Goals: Goal Formation With patient Patient will perform bed mobility with stand by assist Patient will transfer sit to/from stand with minimal assist Patient will transfer bed to/from chair with minimal assist Patient will ambulate 50 feet with stand by assist Custodial Goal(s): Patient to discharge to appropriate next level of inpatient care. INFORMED CONSENT TO TREATMENT: Plan of care including recommended therapy, goals and frequency, discussed with patient who understands and agrees to proceed. Equipment Issued: none Plan: Patient continues to benefit from skilled therapy services., Continue with goals as established. If patient is discharged from the facility, this note serves as a discharge summary if further physical therapy visits did not occur. Refer to filed flowsheet for further details. Following therapy session, patient left in patient bedside chair , with waffle seat cushion in place, with chair alarm on and positioned under patient's buttocks , with call light within reach, with RNMelita aware, with therapy cues visible on white board, all lines/tubes intact. HOG OPERATOR * Leah Khalil RN - 04/09/2024 1:44 PM CST Care Coordination Progress Note Expected Discharge Date: 04/11/2024 Discharge Plan: SNF / AR Patient discussed in MDR. Patient is on last day of IV protonix. Possible d/c 04/11/2024. CM to continue following for planning of d/c needs. Family Support (Name and Phone): Extended Emergency Contact Information Primary Emergency Contact: Iwona Ford Address: [address] [place] [address] [place] Relation: Spouse Preferred language: German Finance Analyst needed? No Transportation at Discharge: Ambulance: READMISSION RISK SCORE is 15 at 1:44 PM 04/09/2024.: Name: Leah Khalil RN HOG OPERATOR * Kassy Otero - 04/09/2024 11:56 AM CST [facility] INTERNAL MEDICINE PROGRESS NOTE Patient: Luis Daniel Ford Sex: male Age: [age] year old Date of : 1955 Date of Admission: 04/07/2024 Date: 04/09/2024 LOS: 2 SUBJECTIVE Interval History: Had 5 episodes of diarrhea yesterday. VSS. Tolerating regular diet. Hospital Course: Per Previous Note Mr. Ford is a 69 yo male with PMH T1DM, HTN, hypothyroidism who initially presented to an OSH on 03/30 after his found him down at home. Most of the history is obtained from the as pt only able to give a limited history and not entirely clear on the circumstances surrounding his initial hospitalization. Per the , he has been more sedentary recently and when he stands he becomes dizzy and has difficulties with ambulation. He reportedly does fine when he is sitting/laying down. She thinks he tried to get up at home last week and got dizzy and fell which [facility] [place] [facility] showed a R femoral neck fracture and he is reportedly s/p bipolar hemiarthroplasty with orthopedics on 04/01. Per the , they had plans to discharge him to [facility] rehab but he developed electrolyte derangements and persistent hypokalemia that prompted CT scan while at [facility], which showed concern for emphysematous gastritis and transfer to [facility] for ACS evaluation was requested. On arrival, pt was seen by both GI and ACS. HDS with labs notable for a white count of 18. Bcx and Ucx ordered. He was then started on IV ceftriaxone/metronidazole. Per ACS, no acute surgical intervention required. GI performed EGD on 04/07, which was significant for LA Grade D esophagitis, non- bleeding gastric ulcers, no evidence of perforation, gastritis, and erythematous duodenopathy. Recommended Protonix 40 mg IV BID for 3 days and H.pylori stool antigen test. Ortho consulted to determine WB status. OBJECTIVE Vital Signs: Vitals: 04/08/24 2355 04/09/24 0418 04/09/24 0849 04/09/24 1129 BP: 149/76 139/70 149/64 143/86 Pulse: 92 90 69 86 Resp: 18 18 18 18 Temp: 98 ??F (36.7 ??C) 99.1 ??F (37.3 ??C) 98.3 ??F (36.8 ??C) 98.1 ??F (36.7 ??C) SpO2: 96% 93% 94% 95% Weight: Height: Temp Min: 97.3 ??F (36.3 ??C) Max: 99.8 ??F (37.7 ??C), Pulse Min: 69 Max: 103, Resp Min: 10 Max: 28, BP Min: 100/60 Max: 156/89 Intake & Output: In: 1934.8 [P.O.:740; I.V.:1194.8] Out: 1500 [Urine:1500] Physical Exam: Physical Exam Constitutional: Appearance: Normal appearance. HENT: Head: Normocephalic. Eyes: Conjunctiva/sclera: Conjunctivae normal. Cardiovascular: Rate and Rhythm: Normal rate and regular rhythm. Heart sounds: Normal heart sounds. Pulmonary: Effort: Pulmonary effort is normal. Breath sounds: Normal breath sounds. Abdominal: General: Bowel sounds are normal. There is no distension. Palpations: Abdomen is soft. Tenderness: There is no abdominal tenderness. Musculoskeletal: General: No swelling. Skin: Comments: Bilateral lower legs dry. No lesions noted. Neurological: General: No focal deficit present. Mental Status: He is alert and oriented to person, place, and time. 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 Psychiatric: Mood and Affect: Mood normal. Behavior: Behavior normal. Comments: Thought process linear and logical. Current Medications: Scheduled: 0.9% NaCl 3 mL Intracatheter q8h insulin aspart 0-6 Units Subcutaneous q4h insulin glargine 6 Units Subcutaneous AT BEDTIME pantoprazole 40 mg Intravenous BID potassium chloride 40 mEq Intravenous Once Continuous: PRN: SALINE LOCK, INSERT AND MAINTAIN AND 0.9% NaCl AND 0.9% NaCl dextrose IV for hypoglycemia OR dextrose IV for hypoglycemia OR glucagon glucose (Diabetic Use) gel polyethylene glycol 3350 Significant Lab Results: CBC: Recent Labs Lab 04/09/24 0556 WBC 10.9* HGB 11.4* HCT 31.4* MCV 83.5 PLTCOUNT 293 BMP: Recent Labs Lab 04/09/24 0556 NA 135* POTASSIUM 2.6* CL 98 CO2 26 BUN 7 CREATININE 0.63* CALCIUM 7.5* MAGNESIUM 1.8 PHOS 3.3 Hepatic: Recent Labs Lab 04/09/24 0556 04/08/24 0802 04/07/24 0536 AST -- -- 13 ALT -- -- 11 TBILI -- -- 0.7 ALKPHOS -- -- 58 ALB 1.9* 1 2.1* PROT -- -- 5.2* 1 = values in this interval not displayed. Coagulation: Recent Labs Lab 04/07/24 0536 PT 17.1* INR 1.4 ABG: Recent Labs Lab 04/06/221957 PH 7.46* Cardiac: Recent Labs Lab 04/07/22 0443 04/07/22 0151 04/06/221957 TROPONINI <0.010 <0.010 <0.010 Amylase/Lipase: No results for input(s): BOO in the last 59373 hours. Recent Labs Component Name 04/07/24 0536 LIPASE 4* Thyroid: Recent Labs Lab 04/08/24 0802 TSH 2.481 Lipid: No results for input(s): LDLCALC , HDL in the last 65193 hours. Microbiology: BLOOD CULTURE (04/07/24) PRELIMINARY RESULT: No growth at 24 hours H. PYLORI ANTIGEN (04/07/24) IN PROCESS URINE CULTURE (04/07/24) No growth. Imaging & Studies: XR R HIP (04/09/24) Results pending. EGD (04/07/24) - LA Grade D esophagitis with no bleeding. - Non-obstructing non-bleeding gastric ulcers with no stigmata of bleeding. There is no evidence ofperforation. - Retained gastric fluid. - Gastritis. - Erythematous duodenopathy. - No specimens collected due to concern of causing perforation. CTA CHEST/ABDOMEN/PELVIS (04/07/24) Impression: 1.The stomach is distended with air [...] pericardial fluid measuring up to 13 mm. CXR (04/07/24) IMPRESSION: Low lung volumes bilaterally with bronchovascular [...] of bowel wall which may represent pneumatosis. 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 d/t concern for emphysematous gastritis seen on OSH imaging - Repeat CT demonstrated gastric emphysema and stercoral colitis - ACS consulted. No surgical intervention needed at this time. - GI consulted, following recs, now signed off - EGD remarkable for LA Grade D esophagitis, non-bleeding ulcers, generalized edema and gastritis, erythematous duodenum, no evidence of perforation Plan - Continue Ceftriaxone and Flagyl - Continue IV Protonix 40 mg IV BID for 3 days, end 04/10/24 - Advanced diet to regular, as tolerated - f/u H. Pylori stool antigen test - Plan for omeprazole 40 mg PO BID outpatient for 12 weeks - f/u EGD 6 weeks after discharge #Hypokalemia - K down to 2.6 today from 3.0 on admission - Noted to be hypokalemic at OSH as well - Likely due to persisting diarrhea Plan - Potassium chloride 40 mg IV, one dose - Decreased bowel regimen to PRN Miralax #Stercoral colitis #Constipation - Diarrhea noted by patient likely overflow diarrhea in setting of constipation and possible stercoral colitis noted on CT abdomen/pelvis Plan - D/c dulcolax 10 mg and prn tap water enema - Miralax PRN #GLF with resultant R femoral neck fracture #s/p bipolar hemiarthroplasty #Concern for orthostatic hypotension -s/p bipolar hemiarthroplasty on 04/01 at OSH - Per , plan was for rehab but not able to be discharged from OSH d/t concern for gastric emphysema -Ortho consulted regarding weight-bearing status s/p surgery. Cleared WBAT. - PT/OT consulted. Plan - Compression stocking for orthostasis - Assess orthostatics CHRONIC #T1DM - Home regimen unclear. Per , patient has been intermittently giving himself humalog injectionswhen sugar Is too high (unclear amount and frequency). If he becomes hypoglycemic, he drinks a can of soda. - A1c on 04/08/24 9.4 Plan - SSI 0-6 units novolog q4 - Lantus 6 units at bedtime #HTN - Patient has not taken home lisinopril in months - SBP 130s-150s Plan: -Hold home lisinopril #Hypothyroidism - TSH on 04/08/24 2.481 Plan - Hold home levothyroxine Code: Full Diet: Regular, as tolerated Electrolytes: Replete PRN PPx: SCDs Access: PIV Dispo: Medicine The above assessment and plan will be discussed with the attending. This note is not final until attested by attending physician. Kassy Borik MS4 [facility] 04/09/2024 1:29 PM HOG OPERATOR Associated attestation - Fadi Arita DO - 04/09/2024 4:49 PM BUSH HOG OPERATOR I have verified the documentation of the medical student including all history, exam, and medical decision-making details. I have personally performed a physical exam with the medical student and have personally reviewed the data to support my medical decision-making as outlined in the medical student???s note, and I arrive independently at the same conclusion. 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) (POA: Yes) Hypothyroid (POA: Yes) Fadi Arita DO Internal Medicine 04/09/2024 4:48 PM * Lola Blanchard OT - 04/09/2024 11:34 AM CST [facility] Occupational Therapy Initial Evaluation Note Patient: Luis Daniel Ford Med Record Number: [id number] Date of : 1955 Age: [age] year old PPE worn by staff: gloves;mask - procedural PPE worn by patient: gown - patient, clean;socks - clean Tech: na; seen with PT Recommendations: Discharge OT Discharge Recommendations: Patient would benefit from intensive 3-hour multidisciplinary therapy This recommendation is made due to ongoing intensive OT functional needs: ability to actively participate in intensive therapy 3 hours/day, 5 days a week;not at baseline due to impaired ability to complete ADL's;motivated to participate in therapy In addition to the 1:1 evaluation of the patient, additional eval time was spent completing the chart review prior to the assessment, completing the multidisciplinary plan of care and education plan post evaluation and communicating results of the eval to other treatment team members. Nurse and Physical Therapy contacted regarding patient status and/or discharge plan. 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) Hypothyroid Past Medical History: Diagnosis Date Diabetes (HCC) Hypertension Hypothyroid 10/2012 SUBJECTIVE: Subjective: Pt agreeable throughout PATIENT GOALS: Home Situation: Type of Residence: Private Residence Living arrangement: Spouse/Significant Other Steps to Enter: 2 Handrails: Indoor (garage) Home Structure: One Story;Basement Primary Bedroom: First Floor Primary Bathroom: First Floor Bathroom : Walk in Shower Equipment at Home: Crutches;Bathroom Equipment Additional Information (OT): independent with ADLs/mobility Prior Level of Functioning: Mobility: Ambulate-In Community;Ambulate-In Home ;Independent Fallen Within 6 Mos: No Have Help at Home?: Yes, there is help at home now Who assists you at home?: Friends/Family How often is assistance provided?: could assist as needed Oxygen at Home: No Activity at Home: Active Vision: Corrected with glasses Hearing Exceptions: No impairment Who manages medications?: self Pain Assessment: Pain Assessment Pain Scale/Observation: No/denies pain OBJECTIVE: At start of therapy session, patient found in bed and with no alarm General Appearance: 69 y/o male, supine NAD LDA: Floor: IVs: Peripheral line Edema: No edema noted Vitals: (*Assess the 3 levels of oxygen saturations both for room air and 02 unless rest on room air is 88% or less). Rest BP: 143/86 HR: Sp02 Sp02 Room Air L O2 Ex/Gait/Activity Without 02 BP: HR: Sp02 Room Air Post Activity BP: 124/76 HR: 103 Sp02 Sp02 98% Room Air Observations: VSS throughout; no signs of distress Mental Status/Cognition: Level of Consciousness-Adult: Other (comment) (A&Ox4) Attention Span: Appears intact Memory: Appears intact Following Commands: Follows all commands and directions without difficulty Safety Judgement: Good awareness of safety precautions Awareness of Errors: Good awareness of errors made Problem Solving: Assistance required to identify errors made UE ROM: RUE: AROM WFL LUE: AROM WFL Strength: RUE: WNL LUE: WNL UE Tone RUE: no abnormal tone noted LUE: no abnormal tone noted Coordination: intact serial opposition for bilateral hands, intact FNF UE Proprioception RUE: WFL LUE: WFL UE Sensation RUE: intact, no complaints of numbness or tingling LUE: intact, no complaints of numbness or tingling Perception: Inattention/Neglect: Appears intact Visual Motor Tracking: Able to track stimulus in all quads w/o difficulty Mobility: A gait belt and non-slip socks were used for all out of bed activity this date. Bed Mobility: Supine to Sit: Minimal Assistance;Requires Verbal Cues for Technique with HOB in semi-fowlers position Sit to Supine: Activity Does Not Occur (pt in chair) Transfers: Sit to Stand: Moderate Assistance;Requires Verbal Cues for Technique (assist for force production) Stand to Sit: Moderate Assistance Transfer Device: Gait belt;Walker-2 Wheeled Functional Ambulation: Patient ambulated to/from bathroom with min assist using WW. Comments: Balance: Balance Scales/Tests Used: Sitting: Static/Dynamic;Standing: Static/Dynamic Sitting - Static: Good - Sitting - Dynamic: Good - Standing - Static: Fair;With Both Upper Extremity's Support Standing - Dynamic: Fair;Fair -;With Both Upper Extremity's Support Activities of Daily Living Feeding: Activity Does Not Occur Oral Facial Hygiene: Stand By Assist Bathing: Stand By Assist (for upper body bath) Upper Body Dressing: Stand By Assist (to don clean gown) Lower Body Dressing: Maximal Assistance (to don clean socks) Toileting: Maximal Assistance (for yanni care hygiene post toileting) Splint Issued/Checked: none ACTIVITY TOLERANCE: Activity Tolerance: Requires rest breaks AM-PAC 6 Clicks Daily Activity Raw Score:: 18 TREATMENT / EDUCATION / INTERVENTIONS: While performing OT, Patient was instructed in:functional mobility training, self-care training, safety awareness/fall precautions Presented to patient who demonstrates Fair understanding of instructions given. INFORMED CONSENT TO TREATMENT: Plan of care including recommended therapy, goals and frequency, discussed with patient who understands and agrees to proceed. ASSESSMENT: Functional performance limited due to: limited activities of daily living, decreased functional mobility, decreased functional balance, and decreased endurance and activity tolerance. Patient continues to benefit from skilled Occupational Therapy to achieve the following functional goals. Short Term Goals: Goal Formation With patient Patient will perform grooming standing at sink and with stand by assist Patient will perform lower extremity dressing with stand by assist Patient will perform toileting with minimal assist Patient will transfer to standard toilet with stand by assist Patient will perform bed to chair with stand by assist Custodial Goal(s): Patient to discharge to appropriate next level of inpatient care. Plan: Patient continues to benefit from skilled therapy services., Continue with goals as established. If patient is discharged from the facility, this note serves as a discharge summary if further occupational therapy visits did not occur. Refer to filed flowsheet for further details. Following therapy session, patient left in patient bedside chair , with chair alarm on and positioned under patient's buttocks , with call light within reach, with RNMelita aware, with therapy cues visible on white board. HOG OPERATOR * Tamara Jain, PT - 04/09/2024 11:32 AM CST [facility] Physical Therapy Initial Evaluation Note Patient: Luis Daniel Ford [facility] Record Number: [id number] Date of : 1955 Age: [age] year old PPE worn by staff: gloves;mask - procedural PPE worn by patient: gown - patient, clean;socks - clean Co-eval with OT Recommendations: Discharge PT Discharge Recommendations: Patient would benefit from intensive 3-hour multidisciplinary therapy This recommendation is made due to ongoing intensive PT functional needs: ability to actively participate in intensive therapy 3 hours/day, 5 days a week;patient demonstrates a significant functionaldecline and would benefit from skilled therapy intervention to restore function In addition to the 1:1 evaluation of the patient, additional eval time was spent completing the chart review prior to the assessment, completing the multidisciplinary plan of care and education plan post evaluation and communicating results of the eval to other treatment team members. Patient is being recommended for post acute care, therefore DME recommendations will be made at thenext level of care. Nurse contacted regarding patient status and/or discharge plan. 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) Hypothyroid Past Medical History: Diagnosis Date Diabetes (HCC) Hypertension Hypothyroid 10/2012 SUBJECTIVE: Subjective: Agreeable to PT PATIENT GOALS: Patient's Primary Concern: Increase strength Home Situation: Type of Residence: Private Residence Living arrangement: Spouse/Significant Other Steps to Enter: 2 Handrails: Indoor (garage) Home Structure: One Story;Basement Primary Bedroom: First Floor Primary Bathroom: First Floor Bathroom : Walk in Shower Equipment at Home: Crutches;Bathroom Equipment Prior Level of Functioning: Prior Level of Function Mobility: Ambulate-In Community;Ambulate-In Home ;Independent Fallen Within 6 Mos: No Have Help at Home?: Yes, there is help at home now Who assists you at home?: Friends/Family How often is assistance provided?: could assist as needed Oxygen at Home: No Vision: Corrected with glasses Hearing Exceptions: No impairment Pain Assessment: Pain Assessment Pain Scale/Observation: No/denies pain OBJECTIVE: At start of therapy session, patient found in bed and with bed alarm on. General Appearance: 69 year old male laying in the bed, NAD LDAs: Floor: IVs: Peripheral line Edema: no edema noted in bilateral lower extremities Vitals: (*Assess the 3 levels of oxygen saturations both for room air and 02 unless rest on room air is 88% or less). Rest BP: 143/86 HR: Sp02 Room Air Post Activity BP: 124/76 HR: 103 Sp02 98% Room Air Observations: VSS throughout; no signs of distress Mental Status/Cognition: Level of Consciousness-Adult: Other (comment) (A&Ox4) Cognition: (Alert, agreeable to PT) Attention Span: Appears intact Memory: Appears intact Following Commands: Follows one step commands consistently Safety Judgement: Good awareness of safety precautions ROM: RLE: AROM WFL LLE: AROM WFL Strength: RLE: hip flexion 3+/5, knee extension 4/5, ankle DF 4+/5 LLE: WFL Sensation: RLE: complaints of numbness or tingling below the knees (neuropathy at PLOF) LLE: complaints of numbness or tingling below the knees (neuropathy at PLOF) Mobility: A gait belt and non-slip socks were used for all out of bed activity this date. Bed Mobility: Supine to Sit: Minimal Assistance;Requires Verbal Cues for Technique with HOB in semi-fowlers position Sit to Supine: Activity Does Not Occur (pt in chair) Transfers: Sit to Stand: Moderate Assistance;Requires Verbal Cues for Technique (assist for force production) Stand to Sit: Moderate Assistance Toilet Transfers: Minimal Assistance (with use of grab bars) Gait: Weight Bearing Status: (WBAT R LE) Distance Ambulated (ft): 20 FEET (10 feet x 2) Ambulation: Assistive Device: Gait Belt;Walker-2 Wheeled Ambulation: Level of Assistance: Minimum Assistance Ambulation: Gait Deviations: Jo-Ann - Decreased;Step Length - Decreased Balance: Balance Scales/Tests Used: Sitting: Static/Dynamic;Standing: Static/Dynamic Sitting - Static: Good - Sitting - Dynamic: Good - Standing - Static: Fair;With Both Upper Extremity's Support Standing - Dynamic: Fair -;With Both Upper Extremity's Support ACTIVITY TOLERANCE: fair minus TREATMENT/INTERVENTIONS: evaluation AM-PAC 6 Clicks Mobility Raw Score:: 14 EDUCATION: While performing PT, Patient was instructed in:functional mobility training, weight bearing status, safety awareness/fall precautions , discharge planning, use of call light Presented to patient who demonstrates Fair understanding of instructions given. INFORMED CONSENT TO TREATMENT: Plan of care including recommended therapy, goals and frequency, discussed with patient who understands and agrees to proceed. ASSESSMENT: Patient would benefit from additional Physical Therapy sessions to achieve the following functionalgoals to enhance independence. Short Term Goals: Goal Formation With patient Patient will perform bed mobility with stand by assist Patient will transfer sit to/from stand with minimal assist Patient will transfer bed to/from chair with minimal assist Patient will ambulate 50 feet with stand by assist Design Sales Consultant Goal(s): Patient to discharge to appropriate next level of inpatient care. Equipment Issued: gait belt Plan: Gait training Transfer training Assistive device training Bed mobility training Balance training Safety awareness If patient is discharged from the facility, this note serves as a discharge summary if further physical therapy visits did not occur. Refer to filed flowsheet for further details. Following therapy session, patient left in patient bedside chair , with chair alarm on and positioned under patient's buttocks , with call light within reach, with RNDana aware, with therapy cues visible on white board, all lines/tubes intact. HOG OPERATOR * Kassy Otero - 04/08/2024 2:18 PM CST [facility] INTERNAL MEDICINE PROGRESS NOTE Patient: Luis Daniel Ford Sex: male Age: [age] year old Date of : 1955 Date of Admission: 04/07/2024 Date: 04/08/2024 LOS: 1 SUBJECTIVE Interval History: No new complaints today. VSS. Currently NWB, pending ortho recs. Diet advanced to regular, as tolerated. Hospital Course: Per Previous Note Mr. Ford is a 69 yo male with PMH T1DM, HTN, hypothyroidism who initially presented to an OSH on 03/30 after his found him down at home. Most of the history is obtained from the as pt only able to give a limited history and not entirely clear on the circumstances surrounding his initial hospitalization. Per the , he has been more sedentary recently and when he stands he becomes dizzy and has difficulties with ambulation. He reportedly does fine when he is sitting/laying down. She thinks he tried to get up at home last week and got dizzy and fell which [place] a R femoral [place] fracture and he is reportedly s/p bipolar hemiarthroplasty with orthopedics on 04/01. Per the , they had plans to discharge him to [facility] rehab but he developed electrolyte derangements and persistent hypokalemia that prompted CT scan while at [place], which showed concern for emphysematous gastritis and transfer to [facility] for ACS evaluation was requested. On arrival, pt was seen by both GI and ACS. HDS with labs notable for a white count of 18. Bcx and Ucx ordered. He was then started on IV ceftriaxone/metronidazole. Per ACS, no acute surgical intervention required. GI performed EGD on 04/07, which was significant for LA Grade D esophagitis, non- bleeding gastric ulcers, no evidence of perforation, gastritis, and erythematous duodenopathy. Recommended Protonix 40 mg IV BID for 3 days and H.pylori stool antigen test. Ortho consulted to determine WB status. OBJECTIVE Vital Signs: Vitals: 04/07/24 2352 04/08/24 0347 04/08/24 0848 04/08/24 1118 BP: 115/77 131/73 144/85 136/75 Pulse: 99 101 95 93 Resp: 16 16 18 20 Temp: 99.4 ??F (37.4 ??C) 99.8 ??F (37.7 ??C) 98.4 ??F (36.9 ??C) 99.8 ??F (37.7 ??C) SpO2: 92% 92% 95% 96% Weight: Height: Temp Min: 97.3 ??F (36.3 ??C) Max: 99.8 ??F (37.7 ??C), Pulse Min: 85 Max: 103, Resp Min: 10 Max: 28, BP Min: 100/60 Max: 144/85 Intake & Output: In: 705.7 [I.V.:705.7] Out: 1300 [Urine:1300] Physical Exam: Physical Exam HENT: Head: Normocephalic. Eyes: Conjunctiva/sclera: Conjunctivae normal. Cardiovascular: Rate and Rhythm: Normal rate and regular rhythm. Heart sounds: Normal heart sounds. Pulmonary: Effort: Pulmonary effort is normal. Breath sounds: Normal breath sounds. Abdominal: General: Bowel sounds are normal. There is no distension. Palpations: Abdomen is soft. Tenderness: There is no abdominal tenderness. Musculoskeletal: General: No swelling. Skin: Comments: Bilateral lower legs dry. No lesions noted. Neurological: Mental Status: He is alert and oriented to person, place, and time. 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 Psychiatric: Mood and Affect: Mood normal. Behavior: Behavior normal. Comments: Thought process linear and logical. Current Medications: Scheduled: 0.9% NaCl 3 mL Intracatheter q8h bisacodyl 10 mg Rectal QDAY cefTRIAXone 2,000 mg Intravenous q24h insulin aspart 0-6 Units Subcutaneous q4h insulin glargine 6 Units Subcutaneous AT BEDTIME iopamidol 30 mL Oral Contrast - Once iopamidol Intravenous Contrast - Once metroNIDAZOLE 500 mg Intravenous q8h pantoprazole 40 mg Intravenous BID potassium chloride 40 mEq Intravenous Once Continuous: PRN: SALINE LOCK, INSERT AND MAINTAIN AND 0.9% NaCl AND 0.9% NaCl dextrose IV for hypoglycemia OR dextrose IV for hypoglycemia OR glucagon glucose (Diabetic Use) gel Significant Lab Results: CBC: Recent Labs Lab 04/08/24 0802 WBC 12.2* HGB 10.9* HCT 30.7* MCV 85.0 PLTCOUNT 283 BMP: Recent Labs Lab 04/08/24 0802 NA 135* POTASSIUM 3.0* CL 101 CO2 25 BUN 12 CREATININE 0.65* CALCIUM 7.7* MAGNESIUM 1.8 PHOS 2.6* Hepatic: Recent Labs Lab 04/08/24 0802 04/07/24 0536 AST -- 13 ALT -- 11 TBILI -- 0.7 ALKPHOS -- 58 ALB 1.9* 2.1* PROT -- 5.2* Coagulation: Recent Labs Lab 04/07/24 0536 PT 17.1* INR 1.4 ABG: Recent Labs Lab 04/06/221957 PH 7.46* Cardiac: Recent Labs Lab 04/07/22 0443 04/07/22 0151 04/06/221957 TROPONINI <0.010 <0.010 <0.010 Amylase/Lipase: No results for input(s): BOO in the last 04860 hours. Recent Labs Component Name 04/07/24 0536 LIPASE 4* Thyroid: Recent Labs Lab 04/08/24 0802 TSH 2.481 Lipid: No results for input(s): LDLCALC , HDL in the last 84918 hours. Microbiology: BLOOD CULTURE (04/07/24) PRELIMINARY RESULT: No growth at 24 hours H. PYLORI ANTIGEN (04/07/24) IN PROCESS URINE CULTURE (04/07/24) IN PROCESS Imaging & Studies: EGD (04/07/24) - LA Grade D esophagitis with no bleeding. - Non-obstructing non-bleeding gastric ulcers with no stigmata of bleeding. There is no evidence ofperforation. - Retained gastric fluid. - Gastritis. - Erythematous duodenopathy. - No specimens collected due to concern of causing perforation. CTA CHEST/ABDOMEN/PELVIS (04/07/24) Impression: 1.The stomach is distended with air [...] pericardial fluid measuring up to 13 mm. CXR (04/07/24) IMPRESSION: Low lung volumes bilaterally with bronchovascular [...] of bowel wall which may represent pneumatosis. ASSESSMENT & PLAN Abdominal pain, generalized (POA: Yes) Emphysematous gastritis (POA: Yes) Leukocytosis, unspecified type (POA: Yes) Stercoral colitis (POA: Yes) #Gastric emphysema - Transferred to [facility] d/t concern for emphysematous gastritis seen on OSH imaging - Repeat CT demonstrated gastric emphysema and stercoral colitis - ACS consulted. No surgical intervention needed at this time. - GI consulted, following recs, now signed off - EGD remarkable for LA Grade D esophagitis, non-bleeding ulcers, generalized edema and gastritis, erythematous duodenum, no evidence of perforation Plan - Continue Ceftriaxone and Flagyl - Continue IV Protonix 40 mg IV BID for 3 days, end 04/10/24 - Advanced diet to regular, as tolerated - f/u H. Pylori stool antigen test - Plan for omeprazole 40 mg PO BID outpatient for 12 weeks - f/u EGD 6 weeks after discharge #Hypokalemia - K down to 3.0 today from 4.5 on admission - Noted to be hypokalemic at OSH as well Plan - Potassium chloride 40 mg IV, one dose #Stercoral colitis #Constipation - Diarrhea noted by patient likely overflow diarrhea in setting of constipation and possible stercoral colitis noted on CT abdomen/pelvis Plan -Dulcolax 10 mg and prn tap water enema #GLF with resultant R femoral neck fracture #s/p bipolar hemiarthroplasty #Concern for orthostatic hypotension -s/p bipolar hemiarthroplasty on 04/01 at OSH - Per , plan was for rehab but not able to be discharged from OSH d/t concern for gastric emphysema -Ortho consulted regarding weight-bearing status s/p surgery. Currently NWB until further clarification - PT/OT consulted, awaiting ortho input regarding WB status to assess orthostatics Plan - Compression stocking for orthostasis - Assess orthostatics once patient is cleared for WBAT CHRONIC #T1DM - Home regimen unclear. Per , patient has been intermittently giving himself humalog injectionswhen sugar Is too high (unclear amount and frequency). If he becomes hypoglycemic, he drinks a can of soda. - A1c on 04/08/24 9.4 Plan - SSI 0-6 units novolog q4 - Lantus 6 units at bedtime #HTN - Patient has not taken home lisinopril in months - SBP 100s-130s Plan: -Hold home lisinopril #Hypothyroidism - TSH on 04/08/24 2.481 Plan - Hold home levothyroxine Code: Full Diet: Regular, as tolerated Electrolytes: Replete PRN PPx: SCDs Access: PIV Dispo: Medicine The above assessment and plan will be discussed with the attending. This note is not final until attested by attending physician. Kassy Otero MS4 [facility] 04/08/2024 2:18 PM HOG OPERATOR Associated attestation - Fadi Arita DO - 04/08/2024 5:15 PM BUSH HOG OPERATOR I have verified the documentation of the medical student including all history, exam, and medical decision-making details. I have personally performed a physical exam with the medical student and have personally reviewed the data to support my medical decision-making as outlined in the medical student???s note, and I arrive independently at the same conclusion. 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 Spoke with white team, cancel OT this am pending ortho consult and weight bearing clarification. Will cont to follow. HOG OPERATOR * Lupe Mayo MD - 04/08/2024 10:13 AM CST GI Consult Progress Note Subjective: Interval History: No acute events overnight. Patient is feeling better. The patient was eating breakfast at the time of our examination.White count has improved to 12.2 K today from 18.7 K on 04/07/24. CT angio on 04/07/24 showed persistence of emphysematous gastritis. EGD was done which showed esophagitis and significant non-bleeding, non-obstructing gastric ulcers. Denies abdominal pain, nausea/vomiting, hematemesis, coffee ground emesis, melena, hematochezia, fevers, chills, heartburn, dysphagia, or odynophagia. Objective: Physical Exam: BP 144/85 (BP Location: Left arm, Patient Position: Lying) Pulse 95 Temp 98.4 ??F (36.9 ??C) (Oral) Resp 18 Ht 1.88 m (6' 2 ) Wt 97.5 kg (215 lb) SpO2 95% Wt Readings from Last 3 Encounters: 04/07/24 97.5 kg (215 lb) 09/13/20 120.2 kg (265 lb) 08/04/20 127 kg (280 lb) General: pleasant, in no distress Lungs: clear to auscultation bilaterally, no wheezes Heart: Normal rate and regular rhythm, no appreciable murmurs Abdomen: soft, non-tender, non-distended, bowel sounds normal, no palpable masses Rectal: deferred Extremities: no edema Labs: Recent Labs Component Name 04/08/2480104/07/2453504/06/22195701/10/167 01/08/162009 WBC 12.2* 18.7* 9.8 6.8 11.9* HGB 10.9* 11.6* 16.6 13.9 15.3 MCV 85.0 83.6 83.0 84.9 84.6 INR - 1.4 - - - Recent Labs Component Name 04/08/2480104/07/2453504/06/222051 NA 135* 134* 141 CL 101 103 109* CO2 * BUN 12 17 6* CREATININE 0.65* 0.65* 0.82 Recent Labs Component Name 04/08/24 0804/07/2453504/06/22205107/06/16 1529 AST - 13 7 14 ALT - 11 9 22 ALKPHOS - 58 47 73 TBILI - 0.7 0.7 - ALB 1.9* 2.1* 3.2* - Imaging: CT Angio Chest Abdomen Pelvis Result Date: 04/07/2024 Impression: 1.The stomach is distended with air [...] mm. > Dictated by Karthikeyan Barreto MD, (resident surgeon). Tara Carroll MD have personally reviewed and interpreted this examination/study. > Interpreting Provider: Tara Souza MD on 04/07/2024 11:33 AM XR CHEST 1VW PORTABLE Result Date: 04/07/2024 IMPRESSION: Low lung volumes bilaterally with bronchovascular [...] These findings were discussed in detail with thepatient's care provider, Dr. Montanez by Dr. Potter via telephone at 6:24 AM on 04/07/2024 with readback comprehension and verification. > Dictated by Pablo Potter DO (Aircraft Designer), 04/07/2024 6:23 AM. Nessa Carroll MD have personally reviewed and interpreted this examination/study. > Interpreting Provider: Nessa Hickman MD on 04/07/2024 9:31 AM Procedures: EGD (04/07/24) Findings: LA Grade D (one or more mucosal breaks involving at least 75% of esophageal circumference) esophagitis with no bleeding was found 26 to 44 cm from the incisors. Two non-obstructing non-bleeding cratered gastric ulcers of significant severity with no stigmata of bleeding were found in the gastric body and in the gastric antrum. The largest lesion was 30 mm in largest dimension. There is no evidence of perforation. Retained fluid was found in the gastric body. This was suctioned. Diffuse severe inflammation characterized by congestion (edema), erythema, friability, granularity and mucus was found in the gastric body. 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 Diffuse moderately erythematous and atrophic mucosa without active bleeding and with no stigmata of bleeding was found in the duodenal bulb, in the first portion of the duodenum and in the second portion of the duodenum. Assessment: Emphysematous gastritis Esophagitis Cratered gastric ulcers Constipation Right femoral fracture s/p repair T1DM HTN Hypothyroidism Recommendations: Protonix 40 mg IV Bid Stool H-Pylori antigen awaited. Treat for H-Pylori if positive. No NSAID's. Okay to advance diet as tolerated. Repeat EGD in 6 weeks. GI will sign off. Patient and above recommendations discussed with GI attending, Dr. Valdez. Thank you for allowing us to participate in the care of this patient. Please do not hesitate to contact us with further questions. Lupe Mayo MD IM resident on Gastroenterology & Hepatology Service. [facility] HOG OPERATOR Associated attestation - Wild Valdez MD - 04/08/2024 1:35 PM BUSH HOG OPERATOR Images from the original note were not included. GI & Hepatology Attending In Patient Consult Note I concur with the plan documented in the [facility]/Resident note - please refer to this for further details. Sincerely, Wild Valdez MD PhD FRCP([place]) Professor of Internal Medicine Director of Neurogastroenterology and Motility Division of Gastroenterology and Hepatology Teaching physician attestation and verification: I attest that I have personally seen and examined this patient with the resident or fellow today and I confirm their assessment and plan. I have participated in medical decision making (or other relevant process) for this service as noted above. * Krista Norton, PT - 04/08/2024 10:00 AM CST [facility] Department of Physical Medicine & Rehabilitation Progress Note Patient: Luis Daniel Ford Med Record Number: [id number] Date of : 1955 Age: [age] year old 04/08/24 0900 Missed Visit Missed Visit Weight Bearing Status PT orders received. Spoke with white team, cancel PT this am pending ortho consult and weight bearing clarification. Will cont to follow. HOG OPERATOR * Candido Allen MD - 04/08/2024 9:02 AM CST [facility] Acute Care Surgery Progress Note Admit: 04/07/2024 4:47 AM Date: April 08, 2024 Length of Stay: 1 Admitting Attending: Fadi Arita DO POD:1 Day Post-Op SUBJECTIVE: History: Luis Daniel Ford is a 69 year old male with PMH T1DM, HTN, hypothyroidism who presented as transfer from [facility] with right femoral neck fracture s/p fixation on 04/01/24. 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 Transferred to [facility] for further evaluation. ACS consulted for concern of perforation due to emphysematous gastritis. On presentation, patient HDS. Denies abdominal pain, nausea, vomiting. Reports passing flatus, lastBM yesterday per patient. Denies previous abdominal surgery. Denies blood thinner use. Denies tobacco, ETOH, or drug use. WBC 18k. Recent Events: 04/07: EGD Interval History At Bedside patient is well appearing and without complaints. - AVFSS - Continues to report flatus and BM - Denies nausea or vomiting - Denies pain - Reports hunger - WBC improved to 12.2 from 18.7 - Hgb 10.9 OBJECTIVE: Scheduled Medications: 0.9% NaCl 3 mL Intracatheter q8h bisacodyl 10 mg Rectal QDAY cefTRIAXone 2,000 mg Intravenous q24h insulin aspart 0-6 Units Subcutaneous q4h insulin glargine 6 Units Subcutaneous AT BEDTIME iopamidol 30 mL Oral Contrast - Once iopamidol Intravenous Contrast - Once metroNIDAZOLE 500 mg Intravenous q8h pantoprazole 40 mg Intravenous BID Continuous Medications: PRN Medications: 0.9% NaCl, 1-10 mL, PRN dextrose IV for hypoglycemia, 12.5 g, PRN Or dextrose IV for hypoglycemia, 25 g, PRN Or glucagon, 1 mg, PRN glucose (Diabetic Use) gel, , PRN Vital Signs: BP 144/85 (BP Location: Left arm, Patient Position: Lying) Pulse 95 Temp 98.4 ??F (36.9 ??C) (Oral) Resp 18 Ht 1.88 m (6' 2 ) Wt 97.5 kg (215 lb) SpO2 95% Temp: [98.4 ??F (36.9 ??C)-99.8 ??F (37.7 ??C)] 98.4 ??F (36.9 ??C) Pulse: [85-103] 95 Resp: [10-28] 18 BP: (100-144)/(53-92) 144/85 Diet: DIET NPO Except: NO EXCEPTIONS Is&Os: 04/07 07 - 04/08 07 In: 705.7 [I.V.:705.7] Out: 1300 [Urine:1300] Date 04/07/24699 - 04/08/2465804/08/24699 - 04/09/24 0659 Shift 0269-2150 6277-0457 24 Hour Total 8595-3833 1567-7079 24 Hour Total INTAKE P.O. 0 0 I.V.(mL/kg/hr) 100(0.1) 605.7(0.5) 705.7(0.3) Shift Total(mL/kg) 100(1) 605.7(6.2) 705.7(7.2) OUTPUT Urine(mL/kg/hr) 600(0.5) 700(0.6) 1300(0.6) Shift Total(mL/kg) 600(6.2) 700(7.2) 1300(13.3) NET -500 -94.3 -594.3 Weight (kg) 97.5 97.5 97.5 97.5 97.5 97.5 Physical Exam: GEN: A&Ox3, cooperative in NAD Neuro: GCS 15, moves all extremities Pulm: Nonlabored on RA CV: RRR, HR 95 Abd: SNTND, no guarding, rebound, non peritoneal Ext: WWP, ranges of motion normal Skin: warm and dry Labs: ABGs Recent Labs Component Name 04/06/22195701/08/162023 PH 7.46* 7.41 PO2 - 77* PCO2 - 38 HCO3 - 23 BE - -1.1 FIO2 21.0 - CBC Recent Labs Component Name 04/08/2480104/07/2453504/06/221957 WBC 12.2* 18.7* 9.8 HGB 10.9* 11.6* 16.6 HCT 30.7* 32.0* 45.8 PLTCOUNT 283 307 222 BMP Recent Labs Component Name 04/07/2453504/06/22205101/10/167 01/08/162009 SODIUM - - 134* 136 POTASSIUM 4.5 2.5* 4.0 3.5 CHLORIDE - - 103 99 CO2 23 * 25 28 BUN 17 6* 15 15 CREATININE 0.65* 0.82 0.87 1.28 GLUCOSE 193* 186* 328* 176* CALCIUM 8.1* 7.3* 8.4* 8.6 LFTs Recent Labs Component Name 04/07/2453504/06/22205107/06/16 1529 01/08/162009 TPROT - - 7.9 7.9 ALBUMIN - - 3.9 3.9 AST 13 7 14 10 ALT 11 9 22 20 ALKPHOS 58 47 73 83 TBIL - - 0.4 0.5 Coags Recent Labs Component Name 04/07/24535 PT 17.1* INR 1.4 ASSESSMENT: Luis Daniel Ford is a 69 year old male admitted with emphysematous gastritis. PMH of T1DM, HTN, hypothyroidism presenting as transfer from [place] following femoral neck fracture repair. CT a/p with emphysematous gastritis and concern for possible perforation. EGD without evidence of perforation. Non-obstructed, non-bleeding gastric ulcerations present with evidence of gastritis. - No acute surgical intervention indicated at this time - Diet orders per GI. Okay to adv diet from surgical perspective. - Improved abdominal exam and downtrending leukocytosis from prior assessment. - Okay to start diet - Abx coverage per GI - PPI - Rest of care per primary team - Surgery will sign off - Please do not hesitate to call Surgery with any questions, concerns or if patient presents any clinical changes. Staff: Dr. Emanuel Davidson MD 04/08/2024 12:51 PM Chief Resident Addendum I have verified the documentation of the resident including all history, exam, and medical decision-making details. I have personally performed a physical exam and have personally reviewed the data to support my medical decision-making as outlined below; and I arrive independently at the same conclusion. Candido Allen MD 04/08/2024 3:38 PM HOG OPERATOR Associated attestation - Raciel Castellanos MD - 04/09/2024 3:32 PM [facility]USH HOG OPERATOR Pt seen and examined with ACS team agree with assessment and plan. I have seen and examined the patient with the resident and I agree with the findings and plan of care as documented by the resident. Date of Service: 04/08 Raciel Castellanos MD * Dede Pruett RN - 04/08/2024 3:43 AM CST 2039 called RN for test results. She said she was told to call the nurse catherine for test results. I was with a patient and suggested could ask the patient since I knew he was awake. (Iwona [phone]) said she asked him and that he didn't know anything. Informed that I would let the doctor know she is asking for an update. 2106 Dr Donavon Marie said he would call Iwona. 2139 at bedside with pt as Curtis CP assisting pt with bedpan. Pt says many things but doesn't givedirect answers to questions or says he doesn't know. Pt without telemetry even though he seems to have an order for it. Pt refusing telemetry. Pt also seems to have an order for a tap water enema, but he is refusing that also. He tells me that he already had one and that is why he is pooping. Pt unable to tell me why he has a mendoza catheter. I let MD know that he refused telemetry (he mentioned he was on it before/earlier. Pt also disgruntled that he is NPO and repeatedly asking why. Dr Donavon Marie informed. Pt wearing thigh high osmar hose. also said to continue with Lantus even though pt is NPO 2315 pt continues to pass liquid stool but also a large formed stool. Incontinenet presently because he did not have a bedpan. Stool specimen sent as ordered HOG OPERATOR * Vel Harden DO - 04/07/2024 3:36 PM CST Plan of care: EGD Impressions: - LA Grade D esophagitis with no bleeding. - Non-obstructing non-bleeding gastric ulcers with no stigmata of bleeding. There is no evidence ofperforation. - Retained gastric fluid. - Gastritis. - Erythematous duodenopathy. - No specimens collected due to concern of causing perforation. Recommendation: - [facility] for [facility] care. - NPO. - Continue present medications. - Use Protonix (pantoprazole) 40 mg IV daily for 3 days. - Use Prilosec (omeprazole) 40 mg PO BID or vonoprazon 20 mg qd for 12 weeks on discharge. - Perform an H. pylori stool antigen (HpSA) test. - No NG/OG tube placement. - Repeat upper endoscopy in 3 months to evaluate the response to therapy and for biopsy if indicated. Vel Harden DO PGY-IV Division of Gastroenterology and Hepatology [facility] HOG OPERATOR Associated attestation - Wild Valdez MD - 04/07/2024 4:52 PM BUSH HOG OPERATOR Images from the original note were not included. GI & Hepatology Attending In Patient Consult Note I concur with the plan documented in the [facility]/Resident note - please refer to this for further details. Sincerely, Wild Valdez MD PhD FRCP() Professor of Internal Medicine Director of Neurogastroenterology and Motility Division of Gastroenterology and Hepatology Teaching physician attestation and verification: I attest that I have personally seen and examined this patient with the resident or fellow today and I confirm their assessment and plan. I have participated in medical decision making (or other relevant process) for this service as noted above. * Larua Richardson RN - 04/07/2024 1:33 PM CST Care Coordination Initial Assessment Expected Discharge Date: 04/10/2024 Expected Discharge Disposition: Assisted Facility Transportation at Discharge: Ambulance Prior Level of Care: Home Prior to Admit Provider: Comments: Pt is a 69 year old male with PMH T1DM, HTN, hypothyroidism [facility] s/p fixation on 04/01/24. Spoke with pt's Iwona and pt's discharge plan at [facility] was to go to [facility] for therapy after hip surgery. CM will follow for discharge needs at [facility]. Lives with: Spouse/Significant Other Physical Limitations: None Requires Assistance With: None Preferred Pharmacy: [facility] #[id number] - [id number] [facility] [id number] [facility] [address] [facility] [id number] READMISSION RISK SCORE is 10 at 1:34 PM 04/07/2024. Met with spouse Family Support (name and phone): Extended Emergency Contact Information Primary Emergency Contact: AngieIwona maldonado Address: [address] [place] [address] Mobile Relation: Spouse Preferred language: German Finance Analyst needed? No Patient or guest services representative requests care coordination reach out to family or caregiver listed above regarding discharge planning and at time of discharge? Yes Actual Level of Care/Dispostion Details Durable Medical Equipment Planning Equipment at Home: None Deputy Director Referral: No Will continue to follow. For any questions or needs please contact: Medical Attendant/Social Work Name/Phone number: Laura Richardson RN HOG OPERATOR * Jaron Carlton - 04/07/2024 4:57 AM CST Filter Plant Operator responded to medical resuscitation page. 69 year old male, transfer from [facility]. Patient alert and communicating with medical team. Patient's spouse aware of transfer to [facility]. No pastoral care needs at this time. Please call [facility] [phone] for further pastoral care support. Jaron Carlton 04/07/2024 4:58 AM HOG OPERATOR * Brooklyn Lloyd MSW - 04/07/2024 4:43 AM CST Medical Resuscitation Note Medical Resuscitation Page: PTs Name: Dima Ford : 53 EMS Company: [facility] location: [place] Family Contact: Spouse Iwona Ford [phone] POA/DPOA/Advance Directives Available: Substance Abuse: Pendng Comments: Pt arrived as transfer from OSH. Per EMS pts family aware of transfer to [facility] and requesting update once available. Pt working with medical team, full assessment deferred at this time. SW will continue to follow for additional needs. HOG OPERATOR documented in this encounter H&P Notes * Vel Harden DO - 04/07/2024 2:42 PM CST PRE-PROCEDURE HISTORY & PHYSICAL NOTE 04/07/2024 2:43 PM Patient: Luis Daniel Ford, date of 1955 Procedure(s) planned: EGD Indication(s): emphysematous gastritis History: Patient is a 69 year old male presenting for EGD Family history of colon cancer: no Antiplatelets/Anticoagulation: no Patient Active Problem List Diagnosis Date Noted Abdominal pain, generalized 04/07/2024 Priority: Not Prioritized Emphysematous gastritis 04/07/2024 Priority: Not Prioritized Leukocytosis, unspecified type 04/07/2024 Priority: Not Prioritized Screening for colorectal cancer 08/04/2020 Priority: Not Prioritized Benign essential HTN 01/10/2016 Priority: Not Prioritized Bradycardia 01/10/2016 Priority: Not Prioritized Past Medical History: Diagnosis Date Diabetes (HCC) Hypertension Hypothyroid 10/2012 No family history on file. Past Surgical History: Procedure Laterality Date COLONOSCOPY 09/13/2020 COLONOSCOPY SCREEN Tonsillectomy Social History Socioeconomic History Marital status: Spouse name: Not on file Number of children: Not on file Years of education: Not on file Highest education level: Not on file Occupational History Not on file Tobacco Use Smoking status: Never Smokeless tobacco: Never Vaping Use Vaping status: Never Used Substance and Sexual Activity Alcohol use: Yes Alcohol/week: 4.0 standard drinks of alcohol Types: 4 Standard drinks or equivalent per week Drug use: No Sexual activity: Not on file Other Topics Concern Special Diet Not Asked Social History Narrative Not on file Social Determinants of Health Financial Resource Strain: Not on file Food Insecurity: Not on file Transportation Needs: Not on file Stress: Not on file Housing Stability: Not on file No Known Allergies No current facility-administered medications on file prior to encounter. Current Outpatient Medications on File Prior to Encounter Medication Sig Dispense Refill acetaminophen-codeine (TYLENOL #3) 300-30 MG tablet Take 1 tablet by mouth every 6 hours as needed pain (Patient not taking: Reported on 09/13/2020) aspirin (ASPIRIN) 325 MG tablet Take 325 mg by mouth doxycycline hyclate (VIBRAMYCIN) 100 MG capsule Take 100 mg by mouth 2 times daily insulin aspart (NOVOLOG FLEXPEN) pen Insulin Aspart (NOVOLOG SC) insulin detemir (LEVEMIR) pen Inject 12 Units subcutaneously (Patient not taking: Reported on 09/13/2020) Insulin Lispro (HUMALOG KWIKPEN) 100 UNIT/ML INJECT UP TO 120 UNITS PER DAY IN DIVIDED DOSES DIRECTED ON SLIDING SCALE (Patient not taking: Reported on 09/13/2020) Insulin NPH Human, Isophane, (HUMULIN N KWIKPEN SC) Inject 15 Units subcutaneously 3 times daily levothyroxine (SYNTHROID) 125 MCG tablet Take 1 Tab by mouth once daily 30 Tab 2 lisinopril (PRINIVIL; ZESTRIL) 20 MG tablet Take 20 mg by mouth NA-K-MG sulfates (SUPREP) 17.5-3.13-1.6 GM/177ML solution Take 177 mL by mouth once daily 177 mL 0 ONETOUCH VERIO test strip USE TO TEST TID Vitamin D, Cholecalciferol, 25 MCG (1000 UT) CAPS Current Facility-Administered Medications Medication 0.9% NaCl injection 3 mL And 0.9% NaCl injection 1-10 mL [Transfer Hold] bisacodyl (Dulcolax) suppository 10 mg [START ON 04/08/2024] cefTRIAXone (Rocephin) syringe 2,000 mg [Transfer Hold] dextrose IV 12.5 g Or [Transfer Hold] dextrose IV 25 g Or [Transfer Hold] glucagon (Glucagen) injection 1 mg [Transfer Hold] glucose (Diabetic Use) oral gel [Transfer Hold] insulin aspart (NovoLOG) pen 0-6 Units [Transfer Hold] insulin glargine (Lantus) pen 12 Units iopamidol (Isovue 300) 61 % contrast 30 mL iopamidol (Isovue 370) 76 % contrast lactated ringers infusion metroNIDAZOLE (Flagyl) 500 mg in 100 mL IVPB [Transfer Hold] pantoprazole (Protonix) injection 40 mg [Transfer Hold] polyethylene glycol 3350 (Miralax) packet 17 g [Transfer Hold] senna (Senokot) tablet 8.6 mg No Chest pain, no plapitations No shortness of breath No abdominal pain Physical Exam: BP 129/83 Pulse 95 Temp 98.4 ??F (36.9 ??C) (Oral) Resp 18 Ht 1.88 m (6' 2 ) Wt 97.5 kg (215 lb) SpO2 93% General appearance: alert, cooperative, no distress Heart: regular rhythm, normal S1 and S2, without murmurs, rubs or gallops Lungs: breath sounds normal and symmetric; no rales or wheezes Abdomen: soft without mass, non-tender, with normal bowel sounds Extremities: no clubbing, cyanosis or edema Lab Results Component Value Date/Time HGB 11.6 (L) 04/07/2024 05:36 AM HGB 16.6 04/06/2022 07:58 PM HGB 13.9 01/10/2016 03:27 AM INR 1.4 04/07/2024 05:36 AM CREATININE 0.65 (L) 04/07/2024 05:36 AM CREATININE 0.87 01/10/2016 03:27 AM Sedation Plan: Monitored Anesthesia Care (MAC) by the anesthesia team. Procedure Plan: Based on the above assessment, we will perform the procedures indicated above. I have discussed the plan, risks, benefits and alternatives with the patient or guardian. When assessment above was not obtained immediately before the procedure, I have reassessed this patient and there are no changes. Vel Harden DO HOG OPERATOR * Adelia Hough DO - 04/07/2024 11:26 AM CST [facility] Internal Medicine History and Physical Date of Admission: 04/07/2024 Patient: Luis Daniel Ford Sex: male Age: [age] year old Date of : 1955 Code Status: Full Code Subjective Chief Complaint: Concern for emphysematous gastritis History of Present Illness: Mr. Ford is a 69 yo male with PMH T1DM, HTN, hypothyroidism who initially presented to an OSH on 03/30 after his found him down at home. Most of the history is obtained from the as pt only able to give a limited history and not entirely clear on the circumstances surrounding his initial hospitalization. Per the , he has been more sedentary recently and when he stands he becomes dizzy and has difficulties with ambulation. He reportedly does fine when he is sitting/laying down. She thinks he tried to get up at home last week and got dizzy and fell which [place] showed a R femoral neck fracture and he is reportedly s/p bipolar hemiarthroplasty with orthopedics on 04/01. Per the , they had plans to discharge him to [facility] rehab but he developed electrolyte derangements and persistent hypokalemia that prompted CT scan while at [place], which showed concern for emphysematous gastritis and transfer to [facility] for ACS evaluation was requested. On arrival, pt was seen by both GI and ACS. HDS with labs notable for a white count of 18. Bcx and Ucx ordered. He was then started on IV abx. Per ACS, no acute surgical intervention required and GI planning for EGD after repeat CT ab/pelvis completed. Spoke with regarding other comorbidities including T1DM, hypothyroidism, and HTN. He reportedly weaned himself off of all his long acting insulin at home and was intermittently using humalog shots when he felt like his sugar was too high (drank a soda when they got too low). Additionally, she notes he had not been taking his levothyroxine or lisinopril in months. Past Medical History: Past Medical History: Diagnosis Date Diabetes (HCC) Hypertension Hypothyroid 10/2012 Past Surgical History: Past Surgical History: Procedure Laterality Date COLONOSCOPY 09/13/2020 COLONOSCOPY SCREEN Tonsillectomy Family History: No family history on file. Social History: Social History Socioeconomic History Marital status: Spouse name: Not on file Number of children: Not on file Years of education: Not on file Highest education level: Not on file Occupational History Not on file Tobacco Use Smoking status: Never Smokeless tobacco: Never Vaping Use Vaping status: Never Used Substance and Sexual Activity Alcohol use: Yes Alcohol/week: 4.0 standard drinks of alcohol Types: 4 Standard drinks or equivalent per week Drug use: No Sexual activity: Not on file Other Topics Concern Special Diet Not Asked Social History Narrative Not on file Social Determinants of Health Financial Resource Strain: Not on file Food Insecurity: Not on file Transportation Needs: Not on file Stress: Not on file Housing Stability: Not on file Allergies: No Known Allergies Home Medications: No current facility-administered medications on file prior to encounter. Current Outpatient Medications on File Prior to Encounter Medication Sig Dispense Refill acetaminophen-codeine (TYLENOL #3) 300-30 MG tablet Take 1 tablet by mouth every 6 hours as needed pain (Patient not taking: Reported on 09/13/2020) aspirin (ASPIRIN) 325 MG tablet Take 325 mg by mouth doxycycline hyclate (VIBRAMYCIN) 100 MG capsule Take 100 mg by mouth 2 times daily insulin aspart (NOVOLOG FLEXPEN) pen Insulin Aspart (NOVOLOG SC) insulin detemir (LEVEMIR) pen Inject 12 Units subcutaneously (Patient not taking: Reported on 09/13/2020) Insulin Lispro (HUMALOG KWIKPEN) 100 UNIT/ML INJECT UP TO 120 UNITS PER DAY IN DIVIDED DOSES DIRECTED ON SLIDING SCALE (Patient not taking: Reported on 09/13/2020) Insulin NPH Human, Isophane, (HUMULIN N KWIKPEN SC) Inject 15 Units subcutaneously 3 times daily levothyroxine (SYNTHROID) 125 MCG tablet Take 1 Tab by mouth once daily 30 Tab 2 lisinopril (PRINIVIL; ZESTRIL) 20 MG tablet Take 20 mg by mouth NA-K-MG sulfates (SUPREP) 17.5-3.13-1.6 GM/177ML solution Take 177 mL by mouth once daily 177 mL 0 ONETOUCH VERIO test strip USE TO TEST TID Vitamin D, Cholecalciferol, 25 MCG (1000 UT) CAPS Current Medications: Scheduled: 0.9% NaCl 3 mL Intracatheter q8h bisacodyl 10 mg Rectal QDAY [START ON 04/08/2024] cefTRIAXone 2,000 mg Intravenous q24h insulin aspart 0-12 Units Subcutaneous q4h insulin glargine 12 Units Subcutaneous AT BEDTIME iopamidol 30 mL Oral Contrast - Once iopamidol Intravenous Contrast - Once metroNIDAZOLE 500 mg Intravenous q8h pantoprazole 40 mg Intravenous QDAY polyethylene glycol 3350 17 g Oral BID senna 8.6 mg Oral BID Continuous: lactated ringers, PRN: SALINE LOCK, INSERT AND MAINTAIN AND 0.9% NaCl AND 0.9% NaCl dextrose IV for hypoglycemia OR dextrose IV for hypoglycemia OR glucagon glucose (Diabetic Use) gel Review of Systems: Review of Systems Constitutional: Negative for chills and fever. Respiratory: Negative for cough and shortness of breath. Cardiovascular: Negative for chest pain and palpitations. Gastrointestinal: Positive for diarrhea. Negative for abdominal pain, constipation, melena, nausea and vomiting. Musculoskeletal: Positive for falls. Neurological: Positive for dizziness and weakness. Psychiatric/Behavioral: Positive for depression. Objective Vital Signs: Temp: [97.3 ??F (36.3 ??C)] 97.3 ??F (36.3 ??C) Pulse: [86-103] 103 Resp: [10-25] 10 BP: (102-126)/(61-79) 120/72 Physical Exam: Physical Exam Constitutional: Appearance: Normal appearance. HENT: Head: Normocephalic. Mouth/Throat: Mouth: Mucous membranes are dry. Cardiovascular: Rate and Rhythm: Normal rate and regular rhythm. Pulmonary: Effort: Pulmonary effort is normal. No respiratory distress. Breath sounds: Normal breath sounds. Abdominal: General: Abdomen is flat. Palpations: Abdomen is soft. Skin: General: Skin is warm. Neurological: General: No focal deficit present. Mental Status: He is alert. Mental status is at baseline. Psychiatric: Mood and Affect: Mood normal. Lab Results: CBC: Recent Labs Component Name 04/07/2453504/06/22195701/10/16326 WBC 18.7* 9.8 6.8 HGB 11.6* 16.6 13.9 HCT 32.0* 45.8 39.3 MCV 83.6 83.0 84.9 Coagulation Panel: Recent Labs Component Name 04/07/24535 PT 17.1* INR 1.4 BMP: Recent Labs Component Name 04/07/2453504/06/22205101/10/16326 NA 134* 141 - POTASSIUM 4.5 2.5* 4.0 CL 103 109* - CO2 23 21* 25 BUN 17 6* 15 CREATININE 0.65* 0.82 0.87 CALCIUM 8.1* 7.3* 8.4* No results for input(s): MAGNESIUM in the last 29701 hours. No results for input(s): PHOS in the last 16422 hours. Hepatic Panel: Recent Labs Component Name 04/07/2453504/06/22205107/06/16 1529 AST 13 7 14 ALT 11 9 22 ALKPHOS 58 47 73 TBILI 0.7 0.7 - ALB 2.1* 3.2* - ABG: Recent Labs Component Name 04/06/22195701/08/162023 PH 7.46* 7.41 PCO2 - 38 PO2 - 77* Amylase/Lipase: Invalid input(s): AMYL , LIPA Thyroid Studies: Recent Labs Component Name 01/08/16 2010 TSH 11.9* Cardiac Enzymes: Recent Labs Component Name 04/07/2453504/07/22 0443 04/07/22 0151 04/06/221957 CKTOTAL 25* - - - TROPONINI - <0.010 <0.010 <0.010 Lipid Panel: No results for input(s): LDLCALC , HDL in the last 66781 hours. UA: Pending Microbiology: Pending Imaging & Studies: Reviewed Assessment/Plan Abdominal pain, generalized (POA: Unknown) Emphysematous gastritis (POA: Unknown) Leukocytosis, unspecified type (POA: Unknown) #Gastric emphysema - transferred to [facility] d/t concern for emphysematous gastritis seen on OSH imaging - repeat CT here showing gastric emphysema and stercoral colitis - ACS and GI consulted. No ACS intervention at this time, GI planning for EGD - started on ceftriaxone/flagyl - started on protonix - mIVF - LR @ 100/hr for 10 hours #Stercoral colitis #Constipation - diarrhea noted by pt likely overflow diarrhea in setting of constipation and possible stercoral colitis noted on CT ab/pelvis - aggressive bowel regimen (miralax, senna, dulcolax, and prn tap water enema) #GLF with resultant R femoral neck fracture #Orthostatic hypotension? - s/p bipolar hemiarthroplasty 04/01 - plan was for rehab per but not able to be discharged there d/t the above problems - will need PT/OT consult. Unclear what weight-bearing status is as well. Will keep NWB RLE until further clarification - tele, compression stockings for orthostasis Chronic problems: #Hypothyroidism: previously taking levothyroxine however per pt's he has not taken that in several months. Recheck TSH in am #T1DM: unclear home regimen. Per , as of recent pt has been intermittently giving himself humalog injections when his sugar is too high (unclear amount and frequency). If it goes too low, he drinks a can of soda. Started on lantus and SSI (weight based dosing) and check A1c in am. #HTN: hold home lisinopril Code: Full Diet: NPO Electrolytes: Replete PRN PPx: SCDs Access: PIV Dispo: Admit to Medicine. The above assessment and plan will be discussed with the attending. This note is not final until attested by attending physician. Adelia Hough DO Internal Medicine Resident [facility] 04/07/2024 2:12 PM HOG OPERATOR Associated attestation - Emanuel Dempsey DO - 04/07/2024 4:24 PM BUSH HOG OPERATOR I have seen and examined the patient with the resident and I agree with the findings and plan of care as documented by Dr. Hough. Active Problems: Abdominal pain, generalized Emphysematous gastritis Leukocytosis, unspecified type Stercoral colitis Date of Service: 04/07/2024 Emanuel Dempsey DO documented in this encounter Consult Notes * Jacqui Bueno, CAYETANO/JACKIE - 04/08/2024 12:20 PM CST BRIEF SYNOPSIS: Nutrition Risk Identified but does not meet malnutrition criteria. 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 Note - Consult not attached as order noted as discontinued. Pt does not meet malnutrition criteria at this time (reference weight history below and NFPE reveals age appropriate adipose stores and lean body mass). Dietordered at breakfast and pt consumed 100% per documentation, but new NPO order noted. Discussed with nurse who reports diet order is pending clarification and will be entered per GI recs. Noted that most recent attestation from GI indicates supplement with TPN - Recommend trial of diet prior to parenteral orders as RD feels parenteral nutrition is not indicated at this time. Weight hx, last BM, la b review, and med review details below. RD to continue to follow per protocol. Med/Surg History and Clinical Diagnoses: 69 year old male with PMH T1DM, HTN, hypothyroidism who presents as transfer from [facility] where he was admitted with right femoral neck fracture s/pfixation on 04/01/24. He subsequently developed constipation, abdominal pain, and distension prompting workup with imaging concerning for emphysematous gastritis. He was transferred to [facility] for further evaluation Height: 188 cm (6' 2 ) BMI: Body mass index is 27.6 kg/m??. BMI Range: Overweight IBW/lb (Calculated) Male: 190 Recent Weights/Methods 2016 2351 01/10/2016 0641 08/04/2020 1307 09/13/2020 0811 04/07/2024 0451 04/07/2024 1819 Weight: 127.7 kg (281 lb 8 oz) 125.2 kg (276 lb 1.6 oz) 127 kg (280 lb) 120.2 kg (265 lb) 97.5 kg (215 lb) 97.5 kg (215 lb) Weight Method : Bedscale Bedscale -- Stated Stated Bed scale UBW: Per pt interview - 275 lbs about 2 years ago, estimates was about 230 lbs March 2023, and estimates was at current weight around January 2024. Weight loss from 275 to 230 lbs was intentional and continued 15 lbs weight loss over last 1 yr unintentional. Not concerning for significant weightchange per ASPEN malnutrition criteria. Unintentional weight change: See note above regarding weight history. Continuing to monitor. PO INTAKE Current diet order: NPO Nutrition recommendation: alter/change nutrition order Food Allergies: No known food allergies Last % Meal Taken: 100 % (04/08/24 1000) 48 hr PO INTAKE % Meal Taken Av % Min: 100 % Max: 100 % Supplement(s) Consumed- Last 48 hours None Pain affecting intake: No Chewing/Swallowing: None GI Concerns: Other (Comment) (gastric ulcers) Stools: Monitoring. Stools (# of stools): 0 (04/08/24 0651) Stool Appearance : Loose (04/08/24 1153) Stool Amount: Medium (04/08/24 1153) Skin/Wound: surgical to RLE (from surgery at OSH 1.14) Estimated Needs: KCAL: 8070-8427 (25-30) Protein (g): 86-103 (1-1.2) Fluid (ml): 1 ml/kcal Needs based on: Kcal/kg- (Comment) (IBW 86kg) Recommended Access Route: PO Labs: Reviewed. Na 135 (L), K 3.0 (L), Phos 2.6 (L). Recent Labs Component Name 04/08/24 0802 04/07/24 0536 04/06/22205107/06/16 1529 01/10/16 0327 01/08/162009 SODIUM - - - - 134* 136 NA 135* 134* 141 - - - POTASSIUM 3.0* 4.5 2.5* - 4.0 3.5 CHLORIDE - - - - 103 99 CO2 25 23 21* - 25 28 BUN 12 17 6* - 15 15 CREATININE 0.65* 0.65* 0.82 - 0.87 1.28 GLUCOSE 125* 193* 186* - 328* 176* CALCIUM 7.7* 8.1* 7.3* - 8.4* 8.6 ALT - 11 9 - 20 ALKPHOS - 58 47 73 - 83 AST - 13 7 14 - 10 TBIL - - - 0.4 - 0.5 TPROT - - - 7.9 - 7.9 EGFR >90 >90 >90 - >60 57* EGFRAFR - - - - >60 >60 ALBUMIN - - - 3.9 - 3.9 Recent Labs Component Name 04/08/24 0802 PHOS 2.6* Recent Labs Component Name 04/08/24 0802 MAGNESIUM 1.8 Recent Labs Component Name 04/08/24 0802 04/07/24 0536 04/06/221957 HGB 10.9* 11.6* 16.6 HCT 30.7* 32.0* 45.8 No results for input(s): HGBA1C in the last 85983 hours.Patient Vitals for the past 30 hrs: Glucose Bedside (mg/dL) 04/08/24 0848 142 mg/dL 04/08/24 0000 170 mg/dL 04/07/24 2000 174 mg/dL MEDICATIONS FOR CURRENT ENCOUNTER: SCHEDULED MEDICATIONS: 0.9% NaCl injection 3 mL, Intracatheter, q8h bisacodyl (Dulcolax) suppository 10 mg, Rectal, QDAY cefTRIAXone (Rocephin) syringe 2,000 mg, Intravenous, q24h insulin aspart (NovoLOG) pen 0-6 Units, Subcutaneous, q4h insulin glargine (Lantus) pen 6 Units, Subcutaneous, AT BEDTIME iopamidol (Isovue 300) 61 % contrast 30 mL, Oral, Contrast - Once iopamidol (Isovue 370) 76 % contrast, Intravenous, Contrast - Once metroNIDAZOLE (Flagyl) 500 mg in 100 mL IVPB, Intravenous, q8h pantoprazole (Protonix) injection 40 mg, Intravenous, BID potassium chloride 40 mEq in 270 mL bolus, Intravenous, Once CONTINUOUS MEDICATIONS: PRN MEDICATIONS: Or Or 0.9% NaCl injection 1-10 mL, Intracatheter, PRN dextrose IV 12.5 g, Intravenous, PRN dextrose IV 25 g, Intravenous, PRN glucagon (Glucagen) injection 1 mg, Subcutaneous, PRN glucose (Diabetic Use) oral gel, Oral, PRN Meds reviewed. Dose of KCl noted this date. Nutrition Diagnostic Statement: Inadequate oral intake related to:: decreased ability to consume ortolerate food and/or fluids due to illness as evidenced by:: oral intake insufficient to meet estimated requirements (remains NPO and new gastric ulcers per EGD) Nutrition Diagnostic Statement Progress: New diagnostic statement established Nutrition Intervention: Meals and snacks:;Collaboration with other providers Education needed: GERD Education Provided: (upon diet advancement - new gastric ulcer dx) () Monitoring: GI, diet advancement/PO intake, Wt, labs, medications Monitor per nutrition guidelines. Evaluation: Nutrition Goal: Total intake will meet estimated nutrient needs Nutrition Goal Timeframe: Throughout stay Nutrition Goal Progress: New goal established Ascom [id number] HOG OPERATOR * Lupe Mayo MD - 04/07/2024 9:18 AM CST GASTROENTEROLOGY CONSULT Luis Daniel Ford Age: [age] year old Date of : 1955 Date of Admission: 04/07/2024 Reason for Consult: Emphysematous gastroenteritis? Subjective: History of Present Illness: Luis Daniel Ford is a 69 year old male with a history of T1DM, HTN, and hypothyroidism who is being transferred from [facility] after CT imaging with findings concerning for [...] gastritis. Consequently, the patient was transferred to [facility] for further management. During my interaction with the patient, he is AO4. Vitally stable. Denies abdominal pain and nauseaat this time. Denies history of GI or liver disease, peptic ulcer disease, previous H. Pylori infection, or history of major GI bleeding. Last colonoscopy was reportedly 4 years ago and was okay . Lab work reviewed. Lipase is 4. Kidney function is wnl. INR is 1.4. Lactic Acid 3.1. He does have neutrophilic leucocytosis. Past Medical History: Patient Active Problem List: Benign essential HTN Bradycardia Screening for colorectal cancer Past Medical History: Diagnosis Date Diabetes (HCC) Hypertension Hypothyroid 10/2012 Past Surgical History: Past Surgical History: Procedure Laterality Date COLONOSCOPY 09/13/2020 COLONOSCOPY SCREEN Tonsillectomy Medications: (Not in a hospital admission) Current Facility-Administered Medications Medication 0.9% NaCl injection 3 mL And 0.9% NaCl injection 1-10 mL [START ON 04/08/2024] cefTRIAXone (Rocephin) syringe 2,000 mg iopamidol (Isovue 300) 61 % contrast 30 mL Current Outpatient Medications Medication acetaminophen-codeine (TYLENOL #3) 300-30 MG tablet aspirin (ASPIRIN) 325 MG tablet doxycycline hyclate (VIBRAMYCIN) 100 MG capsule insulin aspart (NOVOLOG FLEXPEN) pen Insulin Aspart (NOVOLOG SC) insulin detemir (LEVEMIR) pen Insulin Lispro (HUMALOG KWIKPEN) 100 UNIT/ML Insulin NPH Human, Isophane, (HUMULIN N KWIKPEN SC) levothyroxine (SYNTHROID) 125 MCG tablet lisinopril (PRINIVIL; ZESTRIL) 20 MG tablet NA-K-MG sulfates (SUPREP) 17.5-3.13-1.6 GM/177ML solution ONETOUCH VERIO test strip Vitamin D, Cholecalciferol, 25 MCG (1000 UT) CAPS Allergies: No Known Allergies Social History: Social History Tobacco Use Smoking status: Never Smokeless tobacco: Never Substance Use Topics Alcohol use: Yes Alcohol/week: 4.0 standard drinks of alcohol Types: 4 Standard drinks or equivalent per week Family History: family history is not on file. Review of Systems: General: no fever, chills, fatigue, weight loss. HEENT: no acute changes in vision or hearing Respiratory: no shortness of breath, cough, sputum production, hemoptysis Cardiovascular: no chest pain, palpitations, orthopnea Gastrointestinal: as per HPI Genitourinary: Mendoza's in place. MSK: no extremity edema, myalgia. Neuro: no dizziness, headache Skin: no new skin rashes or lesions. Objective: Physical Exam: BP 113/78 Pulse 92 Temp 97.3 ??F (36.3 ??C) Resp 19 Ht 1.88 m (6' 2 ) Wt 97.5 kg (215 lb) SpO2 95% Wt Readings from Last 5 Encounters: 04/07/24 97.5 kg (215 lb) 09/13/20 120.2 kg (265 lb) 08/04/20 127 kg (280 lb) 01/10/16 125.2 kg (276 lb 1.6 oz) General: pleasant, in no distress HEENT: conjunctivae/corneas clear. Moist mucous membranes. Neck: supple Lungs: clear to auscultation bilaterally, no wheezes Heart: Normal rate and regular rhythm, no appreciable murmurs Abdomen: soft, non-tender, non-distended, bowel sounds normal, no palpable masses Rectal: deferred Extremities: no edema Neuro: alert, cooperative, no gross focal signs, no asterixis Labs: Recent Labs Component Name 04/07/2453504/06/22195701/10/1632601/08/162009 WBC 18.7* 9.8 6.8 11.9* HGB 11.6* 16.6 13.9 15.3 MCV 83.6 83.0 84.9 84.6 INR 1.4 - - - Recent Labs Component Name 04/07/2453504/06/22205101/10/16326 NA 134* 141 - CL 103 109* - CO2 23 21* 25 BUN 17 6* 15 CREATININE 0.65* 0.82 0.87 Recent Labs Component Name 04/07/2453504/06/22205107/06/16 1529 AST 13 7 14 ALT 11 9 22 ALKPHOS 58 47 73 TBILI 0.7 0.7 - ALB 2.1* 3.2* - Assessment: Emphysematous gastritis? Constipation Right femoral fracture s/p repair T1DM HTN Hypothyroidism Recommendations: CT Angio chest, abdomen, pelvis. Keep NPO. We will proceed with EGD after the above imaging. Further management after the results of the Imaging and EGD Patient and above recommendations were discussed with GI attending, Dr. Valdez, as well as the primary team. Thank you for allowing us to participate in the care of this patient. We will continue to follow this patient with you. Please do not hesitate to contact us with further questions. Lupe Mayo MD Internal Medicine Resident on Gastroenterology & Hepatology Service [facility] HOG OPERATOR Associated attestation - Wild Valdez MD - 04/07/2024 11:35 AM BUSH HOG OPERATOR Images from the original note were not included. GI & Hepatology Attending In Patient Consult Note Diagnosis: Emphysematous gastritis on CT Abdo is soft and non tender - no clinical signs of perforation Plan: Repeat CT EGD I concur with the plan documented in the [facility]/Resident note - please refer to this for further details. Sincerely, Wild Valdez MD PhD FRCP() Professor of Internal Medicine Director of Neurogastroenterology and Motility Division of Gastroenterology and Hepatology Teaching physician attestation and verification: I attest that I have personally seen and examined this patient with the resident or fellow today and I confirm their assessment and plan. I have participated in medical decision making (or other relevant process) for this service as noted above. * Opal Davidson MD - 04/07/2024 6:23 AM CST Images from the original note were not included. Acute Care Surgery Consult History and Physical Patient Name: Luis Daniel Ford Age/Gender: 69 year old male : 1955 Date: 04/07/2024 Reason for Consult: emphysematous gastritis HPI: Luis Daniel Ford is a 69 year old male with PMH T1DM, HTN, hypothyroidism who presents as transfer from [facility] where he was admitted with right femoral neck fracture s/p fixation on 04/01/24. He subsequently developed constipation, abdominal pain, and distension prompting workup with imaging concerning for emphysematous gastritis. He was transferred to [facility] for further evaluation. On exam, patient HDS. Denies abdominal pain, nausea, vomiting. Reports passing flatus, last BM yesterday per patient. Denies previous abdominal surgery. Denies blood thinner use. Denies tobacco, ETOH, or drug use. WBC 18k. PMH: T1DM, HTN, hypothyroidism PSH: Denies Past Medical History: Diagnosis Date Diabetes (HCC) Hypertension Hypothyroid 10/2012 Past Surgical History: Procedure Laterality Date COLONOSCOPY 09/13/2020 COLONOSCOPY SCREEN Tonsillectomy No Known Allergies Outpatient Medications: acetaminophen-codeine (TYLENOL #3) 300-30 MG tablet aspirin (ASPIRIN) 325 MG tablet doxycycline hyclate (VIBRAMYCIN) 100 MG capsule insulin aspart (NOVOLOG FLEXPEN) pen Insulin Aspart (NOVOLOG SC) insulin detemir (LEVEMIR) pen Insulin Lispro (HUMALOG KWIKPEN) 100 UNIT/ML Insulin NPH Human, Isophane, (HUMULIN N KWIKPEN SC) levothyroxine (SYNTHROID) 125 MCG tablet lisinopril (PRINIVIL; ZESTRIL) 20 MG tablet NA-K-MG sulfates (SUPREP) 17.5-3.13-1.6 GM/177ML solution ONETOUCH VERIO test strip Vitamin D, Cholecalciferol, 25 MCG (1000 UT) CAPS Inpatient Medications: Current Facility-Administered Medications Medication 0.9% NaCl injection 3 mL And 0.9% NaCl injection 1-10 mL [START ON 04/08/2024] cefTRIAXone (Rocephin) syringe 2,000 mg iopamidol (Isovue 300) 61 % contrast 30 mL Current Outpatient Medications Medication acetaminophen-codeine (TYLENOL #3) 300-30 MG tablet aspirin (ASPIRIN) 325 MG tablet doxycycline hyclate (VIBRAMYCIN) 100 MG capsule insulin aspart (NOVOLOG FLEXPEN) pen Insulin Aspart (NOVOLOG SC) insulin detemir (LEVEMIR) pen Insulin Lispro (HUMALOG KWIKPEN) 100 UNIT/ML Insulin NPH Human, Isophane, (HUMULIN N KWIKPEN SC) levothyroxine (SYNTHROID) 125 MCG tablet lisinopril (PRINIVIL; ZESTRIL) 20 MG tablet NA-K-MG sulfates (SUPREP) 17.5-3.13-1.6 GM/177ML solution ONETOUCH VERIO test strip Vitamin D, Cholecalciferol, 25 MCG (1000 UT) CAPS Social History Tobacco Use Smoking status: Never Smokeless tobacco: Never Vaping Use Vaping status: Never Used Substance Use Topics Alcohol use: Yes Alcohol/week: 4.0 standard drinks of alcohol Types: 4 Standard drinks or equivalent per week Drug use: No No family history on file. Problem List/Present on Admission: * No active hospital problems. * REVIEW OF SYSTEMS Constitutional: Negative for fevers, chills, weight change Eyes: Negative for visual changes CV: Negative for chest pain Pulm: Negative for dyspnea GI: Negative for abdominal pain, nausea, vomiting : Negative for dysuria, hematuria MSK: Negative for myalgias, arthralgias Skin: Negative for skin changes Neuro: Negative for weakness PHYSICAL EXAM Vitals: 04/07/24 0451 04/07/24 0530 BP: 110/66 126/79 Pulse: 99 92 Resp: 24 20 Temp: 97.3 ??F (36.3 ??C) SpO2: 94% 95% Weight: 97.5 kg (215 lb) Height: 1.88 m (6' 2 ) Estimated body mass index is 27.6 kg/m?? as calculated from the following: Height as of this encounter: 1.88 m (6' 2 ). Weight as of this encounter: 97.5 kg (215 lb). Gen: alert and oriented, NAD ENT: Head atraumatic, Resp: unlabored breathing on RA CV: RR, WWP Abd: Soft, NT/ND, no rebound/guarding, non-peritoneal MSK: No c/c/e Neuro: Moving all extremities, no focal deficits Psych: Appropriate mood and affect Recent Labs: CBC: Recent Labs Component Name 04/06/221957 WBC 9.8 HGB 16.6 HCT 45.8 BMP: Recent Labs Component Name 04/06/222051 NA 141 CL 109* CO2 21* BUN 6* CREATININE 0.82 No results for input(s): PT , PTT , INR in the last 84484 hours. Imaging: XR CHEST 1VW PORTABLE Result Date: 04/07/2024 IMPRESSION: Low lung volumes bilaterally with bronchovascular [...] These findings were discussed in detail with thepatient's care provider, Dr. Montanez by Dr. Potter via telephone at 6:24 AM on 04/07/2024 with readback comprehension and verification. > Dictated by Pablo Potter DO (Aircraft Designer), 04/07/2024 6:23 AM. Nessa Carroll MD have personally reviewed and interpreted this examination/study. > Interpreting Provider: Nessa Hickman MD on 04/07/2024 9:31 AM Assessment and Plan: Luis Daniel Ford is a 69 year old male who presents as transfer for evaluation of emphysematous gastritis. Patient AFVSS without abdominal pain. No evidence of perforation on imaging. - Admit per medicine - GI consulted for EGD to evaluate gastric mucosa - No acute surgical intervention at this time - NPO with IVF - Abx coverage - PPI - Surgery will continue to follow Patient staffed with attending, Dr. Emanuel Davidson MD 04/07/2024 6:23 AM HOG OPERATOR Associated attestation - Raciel Castellanos MD - 04/09/2024 3:31 PM BUSH HOG OPERATOR Pt seen and examined with ACS team agree with assessment and plan. I have seen and examined the patient with the resident and I agree with the findings and plan of care as documented by the resident. Date of Service: 04/07 Emphysematous gastritis is not surgical disease unless perforated (rare). Usually due to ulcer/gastritis. Agree with GI evaluation Raciel Castellanos MD documented in this encounter ED Notes * Lucia Hui RN - 04/07/2024 1:18 PM CST Report given to ROYER Gibson, questions answered, pt stable at this time. HOG OPERATOR * Rut Luna RN - 04/07/2024 9:35 AM CST Pt placed on bed eduardo. Pt had BM that was liguid and brown. Bed eduardo removed and sheets from OSH removed. HOG OPERATOR * Rachel Jay MD - 04/07/2024 7:28 AM CST Patient signed out to me pending ACS recommendations for an abnormal CT from outside hospital. Their plan is to repeat CT here with oral contrast 0750 patient is stable, comfortable at this time. Acute care surgery is at the bedside. No update and dispo still pending his repeat CT 0837 per acute care surgery patient. He has been admitted to Medicine with GI consulted to scope him. They will follow. 0845 spoke with GI they will see pt. Admitted to IM ICD-10-CM 1. Emphysematous gastritis K29.60 ADMIT TO 2. Abdominal pain, generalized R10.84 XR CHEST 1[address]W PORTABLE CT Angio Chest Abdomen Pelvis ADMIT TO 3. Leukocytosis, unspecified type D72.829 ADMIT TO HOG OPERATOR * Kingston Becerril RN - 04/07/2024 7:04 AM CST Bed: [facility] Expected date: Expected time: Means of arrival: Comments: T3 HOG OPERATOR documented in this encounter Plan of Treatment Pending Results Name Type Priority Associated Diagnoses Date /Time CULTURE BLOOD Microbiology Timed 5 5:36 AM BUSH HOG OPERATOR CULTURE BLOOD Microbiology Timed 5 5:47 AM BUSH HOG OPERATOR RENAL FUNCTION PANEL Lab Routine 03/20 4:24 PM BUSH HOG OPERATOR Scheduled Orders Name Type Priority Associated Diagnoses Orde r Schedule CBC W AUTO DIFFERENTIAL Lab Routine D AILY AM FOR LAB until discontinued starting 04/08/2024, 3 completed MAGNESIUM BLOOD Lab Routine DAILY AM FOR LAB until discontinued starting 04/08/2024, 3 completed PT Eval and Treat PT Routine CONTINU OUS until discontinued starting 04/07/2024 OT EVAL AND TREAT OT Routine CONTINU OUS until discontinued starting 04/07/2024 EGD GI Routine Emphysematous gastritis Leukocytosis, unspecified type History of total right hip replacement Bradycardia 1 Occurrences starting 04/10/2024 until 04/10/2025 RENAL FUNCTION PANEL Lab Routine TWO TIMES DAILY until discontinued starting 04/10/2024 documented as of this encounter Procedures The patient is currently admitted. The information in this section might not be complete until the patient is discharged. Procedure Name Priority Date/Time Associated Diagnosis Comments GLUCOSE - POINT OF CARE Routine 04/10/2024 12:24 PM BUSH HOG OPERATOR GLUCOSE - POINT OF CARE Routine 04/10/2024 8:44 AM BUSH HOG OPERATOR CBC W AUTO DIFFERENTIAL Routine 04/10/2024 6:15 AM BUSH HOG OPERATOR RENAL FUNCTION PANEL Routine 04/10/2024 6:15 AM BUSH HOG OPERATOR MAGNESIUM BLOOD Routine 04/10/2024 6:15 AM BUSH HOG OPERATOR GLUCOSE - POINT OF CARE Routine 04/10/2024 3:33 AM BUSH HOG OPERATOR GLUCOSE - POINT OF CARE Routine 04/10/2024 12:03 AM BUSH HOG OPERATOR GLUCOSE - POINT OF CARE Routine 04/09/2024 8:49 PM BUSH HOG OPERATOR GLUCOSE - POINT OF CARE Routine 04/09/2024 5:20 PM BUSH HOG OPERATOR XR HIP RIGHT 2VW OR MORE STAT 04/09/2024 1:29 PM BUSH HOG OPERATOR History of total right hip replacement GLUCOSE - POINT OF CARE Routine 04/09/2024 12:18 PM BUSH HOG OPERATOR GLUCOSE - POINT OF CARE Routine 04/09/2024 8:47 AM BUSH HOG OPERATOR CBC W AUTO DIFFERENTIAL Routine 04/09/2024 5:56 AM BUSH HOG OPERATOR RENAL FUNCTION PANEL Routine 04/09/2024 5:56 AM BUSH HOG OPERATOR MAGNESIUM BLOOD Routine 04/09/2024 5:56 AM BUSH HOG OPERATOR GLUCOSE - POINT OF CARE Routine 04/09/2024 4:15 AM BUSH HOG OPERATOR GLUCOSE - POINT OF CARE Routine 04/09/2024 12:09 AM BUSH HOG OPERATOR GLUCOSE - POINT OF CARE Routine 04/08/2024 8:47 PM BUSH HOG OPERATOR GLUCOSE - POINT OF CARE Routine 04/08/2024 4:56 PM B[employer] HOG OPERATOR GLUCOSE - POINT OF CARE Routine 04/08/2024 11:19 AM BUSH HOG OPERATOR GLUCOSE - POINT OF CARE Routine 04/08/2024 8:51 AM BUSH HOG OPERATOR TSH REFLEX FREE T4 Routine 04/08/2024 8: 02 AM B[employer] HOG OPERATOR HEMOGLOBIN A1C Routine 04/08/2024 8:02 AM BUSH HOG OPERATOR CBC W AUTO DIFFERENTIAL Routine 04/08/2024 8:02 AM BUSH HOG OPERATOR RENAL FUNCTION PANEL Routine 04/08/2024 8:02 AM B[employer] HOG OPERATOR MAGNESIUM BLOOD Routine 04/08/2024 8:02 AM BUSH HOG OPERATOR GLUCOSE - POINT OF CARE Routine 04/08/2024 3:51 AM BUSH HOG OPERATOR GLUCOSE - POINT OF CARE Routine 04/07/2024 11:55 PM BUSH HOG OPERATOR HELICOBACTER PYLORI ANTIGEN FECES Routine 04/07/2024 11:18 PM BUSH HOG OPERATOR URINALYSIS REFLEX TO MICROSCOPIC NO CULTURE Routine 04/07/2024 11:18 PM BUSH HOG OPERATOR CULTURE URINE Routine 04/07/2024 11:18 PM BUSH H[employer] OPERATOR GLUCOSE - POINT OF CARE Routine 04/07/2024 7:15 PM BUSH HOG OPERATOR URINE MICROSCOPIC ONLY REFLEX TO CULTURE STAT 04/07/2024 5:46 PM BUSH HOG OPERATOR URINALYSIS REFLEX MICROSCOPIC REFLEX CULTURE STAT 04/07/2024 5:46 PM BUSH HOG OPERATOR EGD Routine 04/07/2024 2:55 PM BUSH HOG OPERATOR AL ED EGD FLEX TRANSORAL DX 04/07/2024 2:48 PM B[employer] HOG OPERATOR Emphysematous gastritis GLUCOSE - POINT OF CARE Routine 04/07/2024 2:[address] ANGIO CHEST ABDOMEN PELVIS STAT 04/07/2024 10:13 AM BUSH HOG OPERATOR Abdominal pain, generalized CULTURE BLOOD Timed 04/07/2024 5:47 AM BUSH HOG OPERATOR PT-INR [facility] STAT 04/07/2024 5:36 AM BUSH HOG OPERATOR LACTIC ACID BLOOD REFLEX TO REPEAT STAT 04/07/2024 5:36 AM BUSH HOG OPERATOR CULTURE BLOOD Timed 04/07/2024 5:36 AM BUSH HOG OPERATOR CBC W AUTO DIFFERENTIAL STAT 04/07/2024 5:36 AM BUSH HOG OPERATOR COMPREHENSIVE METABOLIC PANEL STAT 04/07/2024 5:36 AM BUSH HOG OPERATOR LIPASE BLOOD STAT 04/07/2024 5:36 AM BUSH HOG OPERATOR CK BLOOD STAT 04/07/2024 5:36 AM BUSH HOG OPERATOR XR CHEST 1VW PORTABLE STAT 04/07/2024 5:16 AM BUSH HOG OPERATOR Abdominal pain, generalized documented in this encounter Results * (ABNORMAL) GLUCOSE - POINT OF CARE (04/10/2024 12:24 PM BUSH H[employer] OPERATOR) Glucose WB/POC 205(H) 70 - 99 mg/dL 04/10/2024 12:55 PM BUSH HOG OPERATOR [facility] Specimen Type Venous 04/10/2024 12:55 PM BUSH HOG OPERATOR [facility] Blood BLOOD SPECIMEN / Unknown 04/10/2024 12:24 PM BUSH HOG OPERATOR 04/10/2024 12:55 PM BUSH H[employer] OPERATOR Fadi Arita DO LAB - POINT OF CARE ORDERABLES [facility] [address] [place] [address], [facility] [phone] * (ABNORMAL) GLUCOSE - POINT OF CARE (04/10/2024 8:44 AM BUSH H[employer] OPERATOR) Glucose WB/POC 139(H) 70 - 99 mg/dL 04/10/2024 8:48 AM [facility] Specimen Type Venous 04/10/2024 8:48 AM [facility] Blood BLOOD SPECIMEN / Unknown 04/10/2024 8:44 AM B[employer] HOG OPERATOR 04/10/2024 8:48 AM B[employer] H[employer] OPERATOR Fadi Arita DO LAB - POINT OF CARE ORDERABLES [facility] [address] [place] [address], [facility] [phone] * (ABNORMAL) RENAL FUNCTION PANEL (04/10/2024 6:15 AM BUSH H[employer] OPERATOR) BUN 6(L) 7 - 26 mg/dL 04/10/2024 7:15 AM [facility] Creatinine 0.60(L) 0.71 - 1.16 mg/dL 04/10/2024 7:15 AM [facility] Sodium 135(L) 136 - 145 mmol/L 04/10/2024 7:15 AM [facility] Potassium 2.7(L) 3.5 - 4.5 mmol/L 04/10/2024 7:15 AM [facility] Chloride 98 98 - 107 mmol/L 04/10/2024 7:15 AM [facility] CO2 25 22 - 29 mmol/L 04/10/2024 7:15 AM [facility] Glucose 132(H) 70 - 99 mg/dL 04/10/2024 7:15 AM [facility] Albumin 2.1(L) 3.4 - 5.0 g/dL 04/10/2024 7:15 AM [facility] Calcium 7.7(L) 8.4 - 10.2 mg/dL 04/10/2024 7:15 AM [facility] Phosphorus 3.1 2.8 - 5.1 mg/dL 04/10/2024 7:15 AM [facility] Anion Gap 12 6 - 16 04/10/2024 7:15 AM [facility] BUN/Creatinine Ratio 10 7 - 23 04/10/2024 7:15 AM [facility] Osmolality Calculated 279 275 - 295 mOsm/kg 04/10/2024 7:15 AM [facility] eGFR by CKD-EPI >90 >=90 mL/min/1.7 3 m2 04/10/2024 7:15 AM [facility] Blood BLOOD SPECIMEN / Unknown Lab Venipuncture / Unknown 04/10/2024 6:15 AM B[employer] HOG OPERATOR 04/10/2024 6:46 AM BUSH H[employer] OPERATOR Bruce Cullen III, MD LAB - CHEMISTRY ORDERABLES [address] [address], [facility] [phone] * MAGNESIUM BLOOD (04/10/2024 6:15 AM BUSH HOG OPERATOR) Magnesium 1.7 1.6 - 2.6 mg/dL 04/10/2024 7:15 AM [facility] Blood BLOOD SPECIMEN / Unknown Lab Venipuncture / Unknown 04/10/2024 6:15 AM B[employer] HOG OPERATOR 04/10/2024 6:46 AM B[employer] H[employer] OPERATOR Bruce Cullen III, MD LAB - CHEMISTRY ORDERABLES Performing Organization Address City/[facility]/ZIP Co de Phone Number [address] [address], [place] [phone] * (ABNORMAL) CBC W AUTO DIFFERENTIAL (04/10/2024 6:15 AM BUSH H[employer] OPERATOR) WBC 9.4 4.0 - 10.7 x10E9/L 04/10/2024 6:55 AM [facility] RBC Count 4.01(L) 4.30 - 5.80 x10E12/L 04/10/2024 6:55 AM [facility] Hemoglobin 12.0(L) 13.3 - 17.5 g/dL 04/10/2024 6:55 AM [facility] Hematocrit 33.5(L) 38.7 - 51.1 % 04/10/2024 6:55 AM [facility] MCV 83.5 80.0 - 98.0 fL 04/10/2024 6:55 AM [facility] MCH 29.9 26.7 - 33.6 pg 04/10/2024 6:55 AM [facility] MCHC 35.8 31.7 - 36.3 g/dL 04/10/2024 6:55 AM [facility] RDW-CV 12.1 11.3 - 14.8 % 04/10/2024 6:55 AM [facility] Platelet Count 336 150 - 420 x10E9/L 04/10/2024 6:55 AM [facility] MPV 8.9 7.8 - 11.4 fL 04/10/2024 6:55 AM [facility] Preliminary Absolute Neutrophil 6.64 1.60 - 7.50 x10E9/L 04/10/2024 6:55 AM [facility] Neutrophil % 70.5 41.0 - 74.0 % 04/10/2024 6:55 AM [facility] Lymphocyte % 13.0(L) 17.0 - 47.0 % 04/10/2024 6:55 AM [facility] Monocyte % 7.7 3.0 - 11.0 % 04/10/2024 6:55 AM [facility] Eosinophil % 3.1 0.0 - 7.0 % 04/10/2024 6:55 AM [facility] Basophil % 1.3 0.0 - 1.6 % 04/10/2024 6:55 AM [facility] Immature Granulocytes % 4.4(H) 0.0 - 1.0 % 04/10/2024 6:55 AM [facility] Neutrophil Absolute 6.64 1.60 - 7.50 x10E9/L 04/10/2024 6:55 AM [facility] Lymphocyte Absolute 1.22 1.00 - 4.40 x10E9/L 04/10/2024 6:55 AM [facility] Monocyte Absolute 0.72 0.15 - 1.00 x10E9/L 04/10/2024 6:55 AM [facility] Eosinophil Absolute 0.29 0.00 - 0.60 x10E9/L 04/10/2024 6:55 AM BUSH HOG OPERATOR [facility] Basophil Absolute 0.12 0.00 - 0.13 x10E9/L 04/10/2024 6:55 AM [facility] Blood BLOOD SPECIMEN / Unknown Lab Venipuncture / Unknown 04/10/2024 6:15 AM BUSH H[employer] OPERATOR 04/10/2024 6:46 AM B[employer] H[employer] OPERATOR Bruce Cullen III, MD LAB - HEMATOLOG Y ORDERABLES [facility] [address] [place] [address], [place] [phone] * (ABNORMAL) GLUCOSE - POINT OF CARE (04/10/2024 3:33 AM BUSH HOG OPERATOR) Glucose WB/POC 155(H) 70 - 99 mg/dL 04/10/2024 5:08 AM [facility] Specimen Type Cap Fingerstick 2024 5:08 AM [facility] Blood BLOOD SPECIMEN / Unknown 04/10/2024 3:33 AM B[employer] HOG OPERATOR 04/10/2024 5:08 AM BUSH H[employer] OPERATOR Fadi Arita DO LAB - POINT OF CARE ORDERABLES [facility] [address] [place] [address], [place] [phone] * (ABNORMAL) GLUCOSE - POINT OF CARE (04/10/2024 12:03 AM BUSH H[employer] OPERATOR) Glucose WB/POC 144(H) 70 - 99 mg/dL 04/10/2024 5:08 AM BUSH HOG OPERATOR [facility] Specimen Type Cap Fingerstick 2024 5:08 AM [facility] Blood BLOOD SPECIMEN / Unknown 04/10/2024 12:03 AM B[employer] HOG OPERATOR 04/10/2024 5:08 AM B[employer] H[employer] OPERATOR Fadi Arita DO LAB - POINT OF CARE ORDERABLES [facility] [address] [place] [address], [place] [phone] * (ABNORMAL) GLUCOSE - POINT OF CARE (04/09/2024 8:49 PM BUSH H[employer] OPERATOR) Glucose WB/POC 145(H) 70 - 99 mg/dL 04/09/2024 10:21 PM BUSH HOG OPERATOR [facility] Specimen Type Cap Fingerstick 2024 10:21 PM BUSH HOG OPERATOR [facility] Blood BLOOD SPECIMEN / Unknown 04/09/2024 8:49 PM BUSH HOG OPERATOR 04/09/2024 10:21 PM B[employer] H[employer] OPERATOR Fadi Arita DO LAB - POINT OF CARE ORDERABLES Performing Organization Address City/[facility]/ZIP Co de Phone Number [facility] [address] [place] [address], [place] [phone] * (ABNORMAL) GLUCOSE - POINT OF CARE (04/09/2024 5:20 PM BUSH H[employer] OPERATOR) Glucose WB/POC 164(H) 70 - 99 mg/dL 04/09/2024 5:31 PM BUSH HOG OPERATOR [facility] Specimen Type Venous 04/09/2024 5:31 PM BUSH HOG OPERATOR [facility] Blood BLOOD SPECIMEN / Unknown 04/09/2024 5:20 PM BUSH HOG OPERATOR 04/09/2024 5:31 PM B[employer] H[employer] OPERATOR Fadi Arita DO LAB - POINT OF CARE ORDERABLES [facility] [address] [place] [address], [place] [phone] * XR Hip Right 2Vw or More (04/09/2024 1:29 PM BUSH HOG OPERATOR) Anatomical Region Laterality Modality Pelvis, Lower Extremity Digital Radiography 04/10/2024 2:03 AM BUSH HOG OPERATOR Impressions 04/10/2024 2:03 AM BUSH HOG OPERATOR IMPRESSION: There is a right hip 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 There is no periprosthetic fracture or osteolysis. > Interpreting Provider: Brock Moody MD on 04/10/2024 2:03 AM Narrative 04/10/2024 2:03 AM BUSH HOG OPERATOR PROCEDURE: ??XR HIP RIGHT 2VW OR MORE [...] Katz PA-C DIAGNOSTIC I MAGING ORDERABLES * (ABNORMAL) GLUCOSE - POINT OF CARE (04/09/2024 12:18 PM BUSH H[employer] OPERATOR) Glucose WB/POC 178(H) 70 - 99 mg/dL 04/09/2024 5:31 PM BUSH HOG OPERATOR [facility] Specimen Type Venous 04/09/2024 5:31 PM BUSH HOG OPERATOR [facility] Blood BLOOD SPECIMEN / Unknown 04/09/2024 12:18 PM BUSH HOG OPERATOR 04/09/2024 5:31 PM BUSH H[employer] OPERATOR Fadi Arita DO LAB - POINT OF CARE ORDERABLES [facility] [address] [place] [address], [facility] [phone] * (ABNORMAL) GLUCOSE - POINT OF CARE (04/09/2024 8:47 AM BUSH H[employer] OPERATOR) Glucose WB/POC 146(H) 70 - 99 mg/dL 04/09/2024 12:06 PM BUSH HOG OPERATOR [facility] Specimen Type Venous 04/09/2024 12:06 PM [facility] Blood BLOOD SPECIMEN / Unknown 04/09/2024 8:47 AM BUSH HOG OPERATOR 04/09/2024 12:06 PM [facility] Fadi Hillary Monacoer LAB - POINT OF CARE ORDERABLES [facility] [address] [place] [address], [facility] [phone] * (ABNORMAL) RENAL FUNCTION PANEL (04/09/2024 5:56 AM [facility]) BUN 7 7 - 26 mg/dL 04/09/2024 7:05 AM [facility] Creatinine 0.63(L) 0.71 - 1.16 mg/dL 04/09/2024 7:05 AM [facility] Sodium 135(L) 136 - 145 mmol/L 04/09/2024 7:05 AM [facility] Potassium 2.6(L) 3.5 - 4.5 mmol/L 04/09/2024 7:05 AM [facility] Chloride 98 98 - 107 mmol/L 04/09/2024 7:05 AM [facility] CO2 26 22 - 29 mmol/L 04/09/2024 7:05 AM [facility] Glucose 127(H) 70 - 99 mg/dL 04/09/2024 7:05 AM [facility] Albumin 1.9(L) 3.4 - 5.0 g/dL 04/09/2024 7:05 AM [facility] Calcium 7.5(L) 8.4 - 10.2 mg/dL 04/09/2024 7:05 AM [facility] Phosphorus 3.3 2.8 - 5.1 mg/dL 04/09/2024 7:05 AM [facility] Anion Gap 11 6 - 16 04/09/2024 7:05 AM [facility] BUN/Creatinine Ratio 11 7 - 23 04/09/2024 7:05 AM [facility] Osmolality Calculated 280 275 - 295 mOsm/kg 04/09/2024 7:05 AM [facility] eGFR by CKD-EPI >90 >=90 mL/min/1.7 3 m2 04/09/2024 7:05 AM [facility] Blood BLOOD SPECIMEN / Unknown Lab Venipuncture / Unknown 04/09/2024 5:56 AM BUSH HOG OPERATOR 04/09/2024 6:30 AM BUSH H[employer] OPERATOR Bruce Cullen III, MD LAB - CHEMISTRY ORDERABLES Performing Organization Address City/[facility]/ZIP Co de Phone Number [address] [address], [facility] [phone] * MAGNESIUM BLOOD (04/09/2024 5:56 AM BUSH HOG OPERATOR) Magnesium 1.8 1.6 - 2.6 mg/dL 04/09/2024 7:05 AM [facility] Blood BLOOD SPECIMEN / Unknown Lab Venipuncture / Unknown 04/09/2024 5:56 AM BUSH HOG OPERATOR 04/09/2024 6:30 AM BUSH H[employer] OPERATOR Bruce Cullen III, MD LAB - CHEMISTRY ORDERABLES Performing Organization Address City/[facility]/ZIP Co de Phone Number [address] [address], [facility] [phone] * (ABNORMAL) CBC W AUTO DIFFERENTIAL (04/09/2024 5:56 AM BUSH HOG OPERATOR) WBC 10.9(H) 4.0 - 10.7 x10E9/L 04/09/2024 6:52 AM [facility] RBC Count 3.76(L) 4.30 - 5.80 x10E12/L 04/09/2024 6:52 AM [facility] Hemoglobin 11.4(L) 13.3 - 17.5 g/dL 04/09/2024 6:52 AM [facility] Hematocrit 31.4(L) 38.7 - 51.1 % 04/09/2024 6:52 AM [facility] MCV 83.5 80.0 - 98.0 fL 04/09/2024 6:52 AM [facility] MCH 30.3 26.7 - 33.6 pg 04/09/2024 6:52 AM [facility] MCHC 36.3 31.7 - 36.3 g/dL 04/09/2024 6:52 AM [facility] RDW-CV 12.1 11.3 - 14.8 % 04/09/2024 6:52 AM [facility] Platelet Count 293 150 - 420 x10E9/L 04/09/2024 6:52 AM [facility] MPV 9.1 7.8 - 11.4 fL 04/09/2024 6:52 AM [facility] Preliminary Absolute Neutrophil 8.14(H) 1.60 - 7.50 x10E9/L 04/09/2024 6:52 AM [facility] Neutrophil % 75.1(H) 41.0 - 74.0 % 04/09/2024 6:52 AM [facility] Lymphocyte % 9.3(L) 17.0 - 47.0 % 04/09/2024 6:52 AM [facility] Monocyte % 7.9 3.0 - 11.0 % 04/09/2024 6:52 AM [facility] Eosinophil % 3.2 0.0 - 7.0 % 04/09/2024 6:52 AM [facility] Basophil % 0.8 0.0 - 1.6 % 04/09/2024 6:52 AM [facility] Immature Granulocytes % 3.7(H) 0.0 - 1.0 % 04/09/2024 6:52 AM [facility] Neutrophil Absolute 8.14(H) 1.60 - 7.50 x10E9/L 04/09/2024 6:52 AM [facility] Lymphocyte Absolute 1.01 1.00 - 4.40 x10E9/L 04/09/2024 6:52 AM [facility] Monocyte Absolute 0.86 0.15 - 1.00 x10E9/L 04/09/2024 6:52 AM [facility] Eosinophil Absolute 0.35 0.00 - 0.60 x10E9/L 04/09/2024 6:52 AM [facility] Basophil Absolute 0.09 0.00 - 0.13 x10E9/L 04/09/2024 6:52 AM BUSH HOG OPERATOR [facility] Blood BLOOD SPECIMEN / Unknown Lab Venipuncture / Unknown 04/09/2024 5:56 AM BUSH HOG OPERATOR 04/09/2024 6:30 AM BUSH HOG OPERATOR Bruce Cullen III, MD LAB - HEMATOLOG Y ORDERABLES [facility] [address] [place] [address], [place] [phone] * (ABNORMAL) GLUCOSE - POINT OF CARE (04/09/2024 4:15 AM BUSH HOG OPERATOR) Glucose WB/POC 150(H) 70 - 99 mg/dL 04/09/2024 4:20 AM [facility] Specimen Type Cap Fingerstick 2024 4:20 AM [facility] Blood BLOOD SPECIMEN / Unknown 04/09/2024 4:15 AM BUSH HOG OPERATOR 04/09/2024 4:20 AM BUSH HOG OPERATOR Fadi Arita DO LAB - POINT OF CARE ORDERABLES Performing Organization Address City/[facility]/ZIP Co de Phone Number [address] [address], [place] [phone] * (ABNORMAL) GLUCOSE - POINT OF CARE (04/09/2024 12:09 AM BUSH HOG OPERATOR) Glucose WB/POC 142(H) 70 - 99 mg/dL 04/09/2024 4:20 AM [facility] Specimen Type Cap Fingerstick 2024 4:20 AM BUSH HOG OPERATOR [facility] Blood BLOOD SPECIMEN / Unknown 04/09/2024 12:09 AM BUSH HOG OPERATOR 04/09/2024 4:20 AM BUSH HOG OPERATOR Fadi Arita DO LAB - POINT OF CARE ORDERABLES Performing Organization Address City/[facility]/ZIP Co de Phone Number [address] [address], [place] [phone] * (ABNORMAL) GLUCOSE - POINT OF CARE (04/08/2024 8:47 PM BUSH HOG OPERATOR) Glucose WB/POC 135(H) 70 - 99 mg/dL 04/08/2024 9:07 PM BUSH HOG OPERATOR [facility] Specimen Type Cap Fingerstick 2024 9:07 PM BUSH HOG OPERATOR [facility] Blood BLOOD SPECIMEN / Unknown 04/08/2024 8:47 PM BUSH HOG OPERATOR 04/08/2024 9:07 PM BUSH HOG OPERATOR Fadi Arita DO LAB - POINT OF CARE ORDERABLES [facility] [address] [place] [address], [place] [phone] * (ABNORMAL) GLUCOSE - POINT OF CARE (04/08/2024 4:56 PM BUSH HOG OPERATOR) Glucose WB/POC 193(H) 70 - 99 mg/dL 04/08/2024 4:56 PM BUSH HOG OPERATOR [facility] Specimen Type Cap Fingerstick 2024 4:56 PM BUSH HOG OPERATOR [facility] Blood BLOOD SPECIMEN / Unknown 04/08/2024 4:56 PM BUSH HOG OPERATOR 04/08/2024 4:56 PM BUSH HOG OPERATOR Fadi Arita DO LAB - POINT OF CARE ORDERABLES Performing Organization Address City/[facility]/ZIP Co de Phone Number [facility] [address] [place] [address], [place] [phone] * (ABNORMAL) GLUCOSE - POINT OF CARE (04/08/2024 11:19 AM BUSH HOG OPERATOR) Glucose WB/POC 202(H) 70 - 99 mg/dL 04/08/2024 4:54 PM BUSH HOG OPERATOR [facility] Specimen Type Cap Fingerstick 2024 4:54 PM BUSH HOG OPERATOR [facility] Blood BLOOD SPECIMEN / Unknown 04/08/2024 11:19 AM BUSH HOG OPERATOR 04/08/2024 4:54 PM BUSH HOG OPERATOR Fadi Arita DO LAB - POINT OF CARE ORDERABLES [facility] [address] [place] [address], [facility] [phone] * (ABNORMAL) GLUCOSE - POINT OF CARE (04/08/2024 8:51 AM [facility]) Glucose WB/POC 142(H) 70 - 99 mg/dL 04/09/2024 7:56 AM [facility] Specimen Type Arterial 04/09/2024 7:56 AM [facility] Blood BLOOD SPECIMEN / Unknown 04/08/2024 8:51 AM BUSH HOG OPERATOR 04/09/2024 7:56 AM [facility] Fadi Arita DO LAB - POINT OF CARE ORDERABLES Performing Organization Address City/[facility]/ZIP Co de Phone Number [facility] [address] [place] [address], [facility] [phone] * (ABNORMAL) RENAL FUNCTION PANEL (04/08/2024 8:02 AM BUSH HOG OPERATOR) Pathologist [facility] BUN 12 7 - 26 mg/dL 04/08/2024 9:26 AM [facility] Creatinine 0.65(L) 0.71 - 1.16 mg/dL 04/08/2024 9:26 AM [facility] Sodium 135(L) 136 - 145 mmol/L 04/08/2024 9:26 AM [facility] Potassium 3.0(L) 3.5 - 4.5 mmol/L 04/08/2024 9:26 AM [facility] Chloride 101 98 - 107 mmol/L 04/08/2024 9:26 AM [facility] CO2 25 22 - 29 mmol/L 04/08/2024 9:26 AM [facility] Glucose 125(H) 70 - 99 mg/dL 04/08/2024 9:26 AM [facility] Albumin 1.9(L) 3.4 - 5.0 g/dL 04/08/2024 9:26 AM [facility] Calcium 7.7(L) 8.4 - 10.2 mg/dL 04/08/2024 9:26 AM [facility] Phosphorus 2.6(L) 2.8 - 5.1 mg/dL 04/08/2024 9:26 AM [facility] Anion Gap 9 6 - 16 04/08/2024 9:26 AM [facility] BUN/Creatinine Ratio 18 7 - 23 04/08/2024 9:26 AM [facility] Osmolality Calculated 281 275 - 295 mOsm/kg 04/08/2024 9:26 AM [facility] eGFR by CKD-EPI >90 >=90 mL/min/1.7 3 m2 04/08/2024 9:26 AM [facility] Blood BLOOD SPECIMEN / Unknown Lab Venipuncture / Unknown 04/08/2024 8:02 AM [facility] 04/08/2024 8:41 AM [facility] Bruce Cullen III, MD LAB - CHEMISTRY ORDERABLES [facility] [address] [place] [id number] [phone] * (ABNORMAL) HEMOGLOBIN A1C (04/08/2024 8:02 AM [facility]) Hemoglobin A1c 9.4(H) <=5.6 % 04/08/2024 1:21 PM [facility] Estimated Average Glucose 223 mg/dL 04/08/2024 1:21 PM [facility] Comment: HbA1c Interpretation: Normal : < 5.7% Pre-diabetes: 5.7-6.4% Diabetes: Equal to or greater than 6.5% Test results diagnostic of diabetes should be repeated for confirmation. Treatment target values recommended by ADA and other clinical organizations should be used to evaluate metabolic control in patients. Reference: [place] [employer], Standards of Care in Diabetes -2020 In patients 70 years and older consider HbA1c target range of 7.0-7.5% (Reference: Sarwat Rodrigues et al. JAMDA. 2012) The [employer] assay for the measurement of HbA1c is a National Glycohemoglobin Standardization Program (NGSP) certified method. Blood BLOOD SPECIMEN / Unknown Lab Venipuncture / Unknown 04/08/2024 8:02 AM [facility] 04/08/2024 8:40 AM [facility] Bruce Cullen III, MD LAB - CHEMISTRY ORDERABLES Performing Organization Address City/[facility]/ZIP Co de Phone Number [address] [address], [place] [phone] * TSH REFLEX FREE T4 (04/08/2024 8:02 AM [facility]) TSH 2.481 0.350 - 4.940 uIU/mL 04/08/2024 9:26 AM [facility] Blood BLOOD SPECIMEN / Unknown Lab Venipuncture / Unknown 04/08/2024 8:02 AM [facility] 04/08/2024 8:41 AM [facility] Bruce Cullen III, MD LAB - CHEMISTRY ORDERABLES Performing Organization Address [facility]/ZIP Co de Phone Number [address] [address], [place] [phone] * MAGNESIUM BLOOD (04/08/2024 8:02 AM [facility]) Pathologist [facility] Magnesium 1.8 1.6 - 2.6 mg/dL 04/08/2024 9:26 AM [facility] Blood BLOOD SPECIMEN / Unknown Lab Venipuncture / Unknown 04/08/2024 8:02 AM [facility] 04/08/2024 8:41 AM [facility] Bruce Cullen III, MD LAB - CHEMISTRY ORDERABLES Performing Organization Address City/[facility]/ZIP Co de Phone Number [address] [address], [place] [phone] * (ABNORMAL) CBC W AUTO DIFFERENTIAL (04/08/2024 8:02 AM [facility]) WBC 12.2(H) 4.0 - 10.7 x10E9/L 04/08/2024 9:08 AM [facility] RBC Count 3.61(L) 4.30 - 5.80 x10E12/L 04/08/2024 9:08 AM [facility] Hemoglobin 10.9(L) 13.3 - 17.5 g/dL 04/08/2024 9:08 AM [facility] Hematocrit 30.7(L) 38.7 - 51.1 % 04/08/2024 9:08 AM [facility] MCV 85.0 80.0 - 98.0 fL 04/08/2024 9:08 AM [facility] MCH 30.2 26.7 - 33.6 pg 04/08/2024 9:08 AM [facility] MCHC 35.5 31.7 - 36.3 g/dL 04/08/2024 9:08 AM [facility] RDW-CV 12.2 11.3 - 14.8 % 04/08/2024 9:08 AM [facility] Platelet Count 283 150 - 420 x10E9/L 04/08/2024 9:08 AM [facility] MPV 9.5 7.8 - 11.4 fL 04/08/2024 9:08 AM [facility] Preliminary Absolute Neutrophil 9.71(H) 1.60 - 7.50 x10E9/L 04/08/2024 9:08 AM [facility] Neutrophil % 79.6(H) 41.0 - 74.0 % 04/08/2024 9:08 AM [facility] Lymphocyte % 7.9(L) 17.0 - 47.0 % 04/08/2024 9:08 AM [facility] Monocyte % 6.2 3.0 - 11.0 % 04/08/2024 9:08 AM [facility] Eosinophil % 3.0 0.0 - 7.0 % 04/08/2024 9:08 AM [facility] Basophil % 0.6 0.0 - 1.6 % 04/08/2024 9:08 AM [facility] Immature Granulocytes % 2.7(H) 0.0 - 1.0 % 04/08/2024 9:08 AM [facility] Neutrophil Absolute 9.71(H) 1.60 - 7.50 x10E9/L 04/08/2024 9:08 AM [facility] Lymphocyte Absolute 0.96(L) 1.00 - 4.40 x10E9/L 04/08/2024 9:08 AM [facility] Monocyte Absolute 0.76 0.15 - 1.00 x10E9/L 04/08/2024 9:08 AM [facility] Eosinophil Absolute 0.36 0.00 - 0.60 x10E9/L 04/08/2024 9:08 AM [facility] Basophil Absolute 0.07 0.00 - 0.13 x10E9/L 04/08/2024 9:08 AM [facility] Blood BLOOD SPECIMEN / Unknown Lab Venipuncture / Unknown 04/08/2024 8:02 AM BUSH HOG OPERATOR 04/08/2024 8:40 AM BUSH HOG OPERATOR Bruce Cullen III, MD LAB - HEMATOLOG Y ORDERABLES [facility] [address] [place] [address], [facility] [phone] * (ABNORMAL) GLUCOSE - POINT OF CARE (04/08/2024 3:51 AM BUSH HOG OPERATOR) Glucose WB/POC 152(H) 70 - 99 mg/dL 04/08/2024 3:53 AM [facility] Specimen Type Cap Fingerstick 2024 3:53 AM [facility] Blood BLOOD SPECIMEN / Unknown 04/08/2024 3:51 AM BUSH HOG OPERATOR 04/08/2024 3:53 AM BUSH HOG OPERATOR Emanuel Dempsey DO LAB - POINT OF CARE ORDERABLES [facility] [address] [place] [address], [place] [phone] * (ABNORMAL) GLUCOSE - POINT OF CARE (04/07/2024 11:55 PM BUSH HOG OPERATOR) Glucose WB/POC 170(H) 70 - 99 mg/dL 04/07/2024 11:56 PM [facility] Specimen Type Cap Fingerstick 2024 11:56 PM [facility] Blood BLOOD SPECIMEN / Unknown 04/07/2024 11:55 PM BUSH HOG OPERATOR 04/07/2024 11:56 PM BUSH HOG OPERATOR Emanuel Dempsey DO LAB - POINT OF CARE ORDERABLES [facility] [address] [place] [phone], [facility] [phone] * (ABNORMAL) URINALYSIS REFLEX TO MICROSCOPIC NO CULTURE (04/07/2024 11:18 PM BUSH HOG OPERATOR) Color UA Jennifer(A) Straw, Yellow 04/07/2024 11:38 PM [facility] Clarity UA Slt Cloudy(A) Clear 04/07/2024 11:38 PM [facility] Specific [place] UA 1.040(H) 1.005 - 1.030 04/07/2024 11:38 PM [facility] pH UA 5.0 5.0 - 8.0 pH 04/07/2024 11:38 PM [facility] Protein UA 1+(A) Negative 04/07/2024 11:38 PM [facility] Glucose UA 1+(A) Negative 04/07/2024 11:38 PM [facility] Ketone UA 2+(A) Negative 04/07/2024 11:38 PM [facility] Bilirubin UA Negative Negative 04/07/2024 11:38 PM [facility] Blood UA 1+(A) Negative 04/07/2024 11:38 PM [facility] Nitrite UA Negative Negative 04/07/2024 11:38 PM [facility] Leukocyte Esterase Negative Negative 04/07/2024 11:38 PM [facility] Urobilinogen UA 4.0(A) Negative mg/dL 04/07/2024 11:38 PM [facility] RBC UA 11-20(A) None Seen, 0-2, 3-5 /HPF 04/07/2024 11:38 PM [facility] WBC UA 0-5 None Seen, 0-5 /HPF 04/07/2024 11:38 PM [facility] Squamous Epithelial Cells UA 0-2 None Seen, 0-2, 3-5 /HPF 04/07/2024 11:38 PM [facility] Mucus UA 2+ /LPF 04/07/2024 11:38 PM BUSH HOG OPERATOR [facility] LABORATORY [facility] Urine URINE SPECIMEN OBTAINED VIA INDWELLING URINARY CATHETER / Unknown Collection / Unknown 04/07/2024 11:18 PM BUSH HOG OPERATOR 04/07/2024 11:23 PM BUSH HOG OPERATOR Narrative [facility] - 04/07/2024 11:38 PM BUSH HOG OPERATOR Emanuel Dempsey DO LAB - URINALYSIS ORD ERABLES Performing Organization Address City/[facility]/ZIP Co de Phone Number [facility] [address] [place] [address], [facility] [phone] * CULTURE URINE (04/07/2024 11:18 PM BUSH HOG OPERATOR) Culture Urine No growth (<100 CFU/mL) ANTONIO 04/09/2024 6:12 AM BUSH HOG OPERATOR [facility] MICROBIOLOGY Urine URINE SPECIMEN OBTAINED VIA INDWELLING URINARY CATHETER / Unknown Collection / Unknown 04/07/2024 11:18 PM BUSH HOG OPERATOR 04/07/2024 11:23 PM BUSH HOG OPERATOR Emanuel Dempsey DO LAB - MICROBIOLOGY O RDERAYUE Performing Organization Address [facility] Co de Phone Number [facility] MICROBIOLOGY [address] [place] [id number] [phone] * HELICOBACTER PYLORI ANTIGEN FECES (04/07/2024 11:18 PM BUSH HOG OPERATOR) Helicobacter pylori Antigen Stool Negative Negative 04/09/2024 11:12 PM BUSH HOG OPERATOR [facility] ([facility]) Comment: Performed By: [employer] [address] [place] [address] Program Planner: Vern Montiel MD, PhD CLIA Number: [id number] Stool STOOL SPECIMEN / Unknown Collection / Unknown 04/07/2024 11:18 PM BUSH HOG OPERATOR 04/07/2024 11:22 PM BUSH HOG OPERATOR Emanuel Dempsey DO LAB - MICROBIOLOGY O RDERAYUE Performing Organization Address [facility] Co de Phone Number [facility]) [address] [place], [place] [address] * (ABNORMAL) GLUCOSE - POINT OF CARE (04/07/2024 7:15 PM BUSH HOG OPERATOR) Glucose WB/POC 174(H) 70 - 99 mg/dL 04/07/2024 7:16 PM [facility] Specimen Type Cap Fingerstick 2024 7:16 PM [facility] Blood BLOOD SPECIMEN / Unknown 04/07/2024 7:15 PM BUSH HOG OPERATOR 04/07/2024 7:16 PM BUSH HOG OPERATOR Emanuel Dempsey DO LAB - POINT OF CARE ORDERABLES Performing Organization Address [facility] Co de Phone Number [facility] [address] [place] [address], [facility] [phone] * (ABNORMAL) URINE MICROSCOPIC ONLY REFLEX TO CULTURE (04/07/2024 5:46 PM BUSH HOG OPERATOR) Reflex Status Culture not indicated 04/07/2024 6:08 PM [facility] RBC UA 21-50(A) None Seen, 0-2, 3-5 /HPF 04/07/2024 6:08 PM [facility] WBC UA 6-10(A) None Seen, 0-5 /HPF 04/07/2024 6:08 PM [facility] Bacteria UA 1+(A) None /HPF 04/07/2024 6:08 PM [facility] Squamous Epithelial Cells UA 0-2 None Seen, 0-2, 3-5 /HPF 04/07/2024 6:08 PM [facility] Mucus UA 1+ /LPF 04/07/2024 6:08 PM [facility] Amorphous Crystals Rare(A) None /HPF 04/07/2024 6:08 PM [facility] Urine URINE SPECIMEN OBTAINED VIA INDWELLING URINARY CATHETER / Unknown Collection / Unknown 04/07/2024 5:46 PM BUSH HOG OPERATOR 04/07/2024 5:55 PM BUSH HOG OPERATOR Narrative [facility] - 04/07/2024 6:08 PM BUSH HOG OPERATOR Jamaal White DO LAB - URINALYSIS ORD ERABLES [facility] [address] [place] [address], [facility] [phone] * (ABNORMAL) URINALYSIS REFLEX MICROSCOPIC REFLEX CULTURE (04/07/2024 5:46 PM BUSH HOG OPERATOR) Color UA Jennifer(A) Straw, Yellow 04/07/2024 6:09 PM [facility] Clarity UA Slt Cloudy(A) Clear 04/07/2024 6:09 PM [facility] Specific [place] UA >1.060(H) 1.005 - 1.030 04/07/2024 6:09 PM [facility] Comment:Specific gravity res ults confirmed by refractometer. pH UA 5.0 5.0 - 8.0 pH 04/07/2024 6:09 PM [facility] Protein UA 2+(A) Negative 04/07/2024 6:09 PM [facility] Glucose UA 1+(A) Negative 04/07/2024 6:09 PM [facility] Ketone UA 1+(A) Negative 04/07/2024 6:09 PM [facility] Bilirubin UA Negative Negative 04/07/2024 6:09 PM [facility] Blood UA 1+(A) Negative 04/07/2024 6:09 PM [facility] Nitrite UA Negative Negative 04/07/2024 6:09 PM [facility] Leukocyte Esterase Negative Negative 04/07/2024 6:09 PM [facility] Urobilinogen UA 4.0(A) Negative mg/dL 04/07/2024 6:09 PM [facility] Urine URINE SPECIMEN OBTAINED VIA INDWELLING URINARY CATHETER / Unknown Collection / Unknown 04/07/2024 5:46 PM BUSH HOG OPERATOR 04/07/2024 5:55 PM [facility] - 04/07/2024 6:09 PM [facility] Jamaal White DO LAB - URINALYSIS ORD ERABLES [facility] [address] [place] [address], [facility] [phone] * EGD (04/07/2024 2:55 PM BUSH HOG OPERATOR) Report Endoscopy POC Endoscopy Department Report _ [...] Procedure Code(s): ? --- Professional --- ? 28873, Esophagogastroduod enoscopy, flexible, transoral; diagnostic, ? including collection of specimen(s) by brushing or washing, when ? performed (separate procedure) Diagnosis Code(s): ?--- Professional --- ?K31.89, Other diseases of stomach and duodenum ?K25.9, Gastric ulcer, unspecified as acute or ?chronic, without hemorrhage or perforation ?K20.90, Esophagitis, unspecified without bleeding ?R93.3, Abnormal findings on diagnostic imaging of ?other parts of digestive tract CPT copyright 2021 [employer]. All rights reserved. The codes documented in this report are preliminary and upon motor man review may be revised to meet current compliance requirements. Erasto Urbina, 04/07/2024 3:31:30 PM Note Initiated On: 04/07/2024 2:55 PM Number of Addenda: 0 ? [facility] ? [address] [place] [address] [facility] PROVATION 04/07/2024 2:55 PM BUSH HOG OPERATOR Emanuel Dempsey DO GI PROCEDURE ORDERAB LES [facility] [employer]ATION * (ABNORMAL) GLUCOSE - POINT OF CARE (04/07/2024 2:48 PM BUSH HOG OPERATOR) Glucose WB/POC 166(H) 70 - 99 mg/dL 04/07/2024 3:55 PM BUSH HOG OPERATOR [facility] Specimen Type Cap Fingerstick 2024 3:55 PM BUSH HOG OPERATOR [facility] Blood BLOOD SPECIMEN / Unknown 04/07/2024 2:48 PM BUSH HOG OPERATOR 04/07/2024 3:55 PM BUSH HOG OPERATOR Emanuel Dempsey LAB - POINT OF CARE ORDERABLES Performing Organization Address City/State/[facility] Co de Phone Number [facility] [address] [place] [address], [facility] [phone] * CT Angio Chest Abdomen Pelvis (04/07/2024 10:13 AM BUSH HOG OPERATOR) Anatomical Region Laterality Modality Chest, Abdomen, Pelvis Computed Tomography 04/07/2024 10:3 5 AM BUSH HOG OPERATOR Impressions 04/07/2024 11:33 AM BUSH HOG OPERATOR Impression: 1.The stomach is distended with air [...] mm. > Dictated by Karthikeyan Barreto MD, (resident surgeon). I, Tara Souza MD have personally reviewed and interpreted this examination/study. > Interpreting Provider: Tara Souza MD on 04/07/2024 11:33 AM Narrative 04/07/2024 11:33 AM BUSH HOG OPERATOR PROCEDURE: ??CT ANGIO CHEST ABDOMEN PELVIS, DATE/TIME OF EXAM: ??04/07/2024 10:13 AM, LOCATION ??[facility] INDICATION: R10.84: Abdominal pain, generalized ADDITIONAL CLINICAL [...] unremarkable. Normal appendix. Mesentery/Peritoneum/Retroperitoneum: Normal. Bladder: A Mendoza catheter terminates within a decompressed urinary bladder. [...] DATE/TIME OF EXAM: 04/07/2024 10:13 AM, LOCATION [facility] INDICATION: R10.84: Abdominal pain, generalized ADDITIONAL CLINICAL [...] unremarkable. Normal appendix. Mesentery/Peritoneum/Retroperitoneum: Normal. Bladder: A Mendoza catheter terminates within a decompressed urinary bladder. [...] mm. > Dictated by Karthikeyan Barreto MD, (resident surgeon). I, Tara Souza MD have personally reviewed and interpreted this examination/study. > Interpreting Provider: Tara Souza MD on 04/07/2024 11:33 AM Rachel Jay MD CT ORDERABLES * (ABNORMAL) CK BLOOD (04/07/2024 5:36 AM BUSH HOG OPERATOR) CK Total 25(L) 30 - 200 U/L 04/07/2024 7:02 AM [facility]AT[facility] Blood BLOOD SPECIMEN / Unknown Venipuncture / Unknown 04/07/2024 5:36 AM BUSH HOG OPERATOR 04/07/2024 6:31 AM BUSH HOG OPERATOR Jamaal White DO LAB - CHEMISTRY ORDE SWETHA Performing Organization Address City/[facility] Co de Phone Number [facility]ORATORY [address] [address], [facility] [phone] * (ABNORMAL) PT-INR [facility] (04/07/2024 5:36 AM BUSH HOG OPERATOR) PT 17.1(H) 12.1 - 14.8 Seconds 04/07/2024 6:56 AM [facility] INR 1.4 See Comment 04/07/2024 6:56 AM [facility] Comment:The suggested therap eutic range for standard coumadin (warfarin) therapy is an INR of 2.0-3.0. For high-risk patients (Mechanical Mitral Valve Prosthesis, etc.), the suggested prophylactic therapeutic range is an INR of 2.5-3.5. Blood BLOOD SPECIMEN / Unknown Venipuncture / Unknown 04/07/2024 5:36 AM BUSH HOG OPERATOR 04/07/2024 6:31 AM BUSH HOG OPERATOR Jamaal White DO LAB - COAGULATION OR DERABLES [facility] [address] [place] [address], [place] [phone] * (ABNORMAL) LIPASE BLOOD (04/07/2024 5:36 AM BUSH HOG OPERATOR) Lipase 4(L) 8 - 78 U/L 04/07/2024 7:02 AM [facility] Blood BLOOD SPECIMEN / Unknown Venipuncture / Unknown 04/07/2024 5:36 AM BUSH HOG OPERATOR 04/07/2024 6:31 AM BUSH HOG OPERATOR Narrative [facility] - 04/07/2024 7:02 AM BUSH HOG OPERATOR Lipase results from the [employer] Alinity analyzer may not be comparable with other methodologies. Jamaal White DO LAB - CHEMISTRY ROBERTO POSADA Performing Organization Address [facility]/ZIP Co de Phone Number [address] [address], [facility] [phone] * LACTIC ACID BLOOD REFLEX TO REPEAT (04/07/2024 5:36 AM BUSH HOG OPERATOR) Pathologist [facility] Lactic Acid-Stat 0.8 <=2.0 mmol/L 04/07/2024 7:00 AM [facility] Blood BLOOD SPECIMEN / Unknown Venipuncture / Unknown 04/07/2024 5:36 AM BUSH HOG OPERATOR 04/07/2024 6:31 AM BUSH HOG OPERATOR Jamaal White DO LAB - CHEMISTRY ROBERTO POSADA Performing Organization Address City/[facility]/ZIP Co de Phone Number [facility] [address] [place] [address], [place] [phone] * (ABNORMAL) COMPREHENSIVE METABOLIC PANEL (04/07/2024 5:36 AM BUSH HOG OPERATOR) BUN 17 7 - 26 mg/dL 04/07/2024 7:02 AM [facility] Creatinine 0.65(L) 0.71 - 1.16 mg/dL 04/07/2024 7:02 AM [facility] Sodium 134(L) 136 - 145 mmol/L 04/07/2024 7:02 AM [facility] Potassium 4.5 3.5 - 4.5 mmol/L 04/07/2024 7:02 AM [facility] Chloride 103 98 - 107 mmol/L 04/07/2024 7:02 AM [facility] CO2 23 22 - 29 mmol/L 04/07/2024 7:02 AM [facility] Glucose 193(H) 70 - 99 mg/dL 04/07/2024 7:02 AM [facility] Calcium 8.1(L) 8.4 - 10.2 mg/dL 04/07/2024 7:02 AM [facility] Protein Total 5.2(L) 6.0 - 8.3 g/dL 04/07/2024 7:02 AM [facility] Albumin 2.1(L) 3.4 - 5.0 g/dL 04/07/2024 7:02 AM [facility] Bilirubin Total 0.7 0.2 - 1.2 mg/dL 04/07/2024 7:02 AM [facility] Alkaline Phosphatase 58 40 - 150 U/L 04/07/2024 7:02 AM [facility] ALT 11 5 - 55 U/L 04/07/2024 7:02 AM [facility] AST 13 5 - 34 U/L 04/07/2024 7:02 AM [facility] Anion Gap 8 6 - 16 04/07/2024 7:02 AM [facility] BUN/Creatinine Ratio 26(H) 7 - 23 04/07/2024 7:02 AM [facility] Osmolality Calculated 285 275 - 295 mOsm/kg 04/07/2024 7:02 AM [facility] Albumin/Globulin Ratio 0.7(L) 1.1 - 2.3 04/07/2024 7:02 AM [facility] eGFR by CKD-EPI >90 >=90 mL/min/1.7 3 m2 04/07/2024 7:02 AM [facility] Blood BLOOD SPECIMEN / Unknown Venipuncture / Unknown 04/07/2024 5:36 AM BUSH HOG OPERATOR 04/07/2024 6:31 AM BUSH HOG OPERATOR Jamaal White DO LAB - CHEMISTRY ORDE RABLES [facility] [address] [place] [address], [facility] [phone] * (ABNORMAL) CBC W AUTO DIFFERENTIAL (04/07/2024 5:36 AM [facility]) WBC 18.7(H) 4.0 - 10.7 x10E9/L 04/07/2024 6:42 AM [facility] RBC Count 3.83(L) 4.30 - 5.80 x10E12/L 04/07/2024 6:42 AM [facility] Hemoglobin 11.6(L) 13.3 - 17.5 g/dL 04/07/2024 6:42 AM [facility] Hematocrit 32.0(L) 38.7 - 51.1 % 04/07/2024 6:42 AM [facility] MCV 83.6 80.0 - 98.0 fL 04/07/2024 6:42 AM [facility] MCH 30.3 26.7 - 33.6 pg 04/07/2024 6:42 AM [facility] MCHC 36.3 31.7 - 36.3 g/dL 04/07/2024 6:42 AM [facility] RDW-CV 12.5 11.3 - 14.8 % 04/07/2024 6:42 AM [facility] Platelet Count 307 150 - 420 x10E9/L 04/07/2024 6:42 AM [facility] MPV 9.8 7.8 - 11.4 fL 04/07/2024 6:42 AM [facility] Neutrophil % 85.7(H) 41.0 - 74.0 % 04/07/2024 6:42 AM [facility] Lymphocyte % 4.9(L) 17.0 - 47.0 % 04/07/2024 6:42 AM [facility] Monocyte % 5.7 3.0 - 11.0 % 04/07/2024 6:42 AM [facility] Eosinophil % 1.5 0.0 - 7.0 % 04/07/2024 6:42 AM [facility] Basophil % 0.4 0.0 - 1.6 % 04/07/2024 6:42 AM [facility] Immature Granulocytes % 1.8(H) 0.0 - 1.0 % 04/07/2024 6:42 AM [facility] Neutrophil Absolute 16.07(H) 1.60 - 7.50 x10E9/L 04/07/2024 6:42 AM [facility] Lymphocyte Absolute 0.91(L) 1.00 - 4.40 x10E9/L 04/07/2024 6:42 AM [facility] Monocyte Absolute 1.06(H) 0.15 - 1.00 x10E9/L 04/07/2024 6:42 AM [facility] Eosinophil Absolute 0.29 0.00 - 0.60 x10E9/L 04/07/2024 6:42 AM [facility] Basophil Absolute 0.07 0.00 - 0.13 x10E9/L 04/07/2024 6:42 AM [facility] Blood BLOOD SPECIMEN / Unknown Venipuncture / Unknown 04/07/2024 5:36 AM BUSH HOG OPERATOR 04/07/2024 6:31 AM BUSH HOG OPERATOR Jamaal White DO LAB - HEMATOLOGY ORD ERABLES Performing Organization Address City/State/[facility] Co de Phone Number [facility] [address] [place] [address], [facility] [phone] * XR CHEST 1VW PORTABLE (04/07/2024 5:16 AM BUSH HOG OPERATOR) Anatomical Region Laterality Modality Chest Digital Radiogra phy 04/07/2024 6:04 AM BUSH HOG OPERATOR Impressions 04/07/2024 9:31 AM BUSH HOG OPERATOR IMPRESSION: Low lung volumes bilaterally with bronchovascular [...] verification. > Dictated by Pablo Potter DO (Aircraft Designer), 04/07/2024 6:23 AM. Nessa Carroll MD have personally reviewed and interpreted this examination/study. > Interpreting Provider: Nessa Hickman MD on 04/07/2024 9:31 AM Narrative 04/07/2024 9:31 AM BUSH HOG OPERATOR PROCEDURE: ??XR CHEST 1VW PORTABLE, DATE/TIME OF EXAM: ??04/07/2024 5:16 AM, LOCATION ??[facility] INDICATION: R10.84: Abdominal pain, generalized ADDITIONAL CLINICAL INFORMATION: Ordering Provider Reason For Exam: ??gastric/esophageal perf suspected COMPARISON: None. Procedure Note Nessa Hickman MD - 04/07/2024 PROCEDURE: XR CHEST 1VW PORTABLE, DATE/TIME OF EXAM: 04/07/2024 5:16AM, LOCATION [facility] INDICATION: R10.84: Abdominal pain, generalized ADDITIONAL CLINICAL [...] verification. > Dictated by Pablo Potter DO (Aircraft Designer), 04/07/2024 6:23 AM. Nessa Carroll MD have personally reviewed and interpreted this examination/study. > Interpreting Provider: Nessa Hickman MD on 04/07/2024 9:31 AM Jamaal White DO DIAGNOSTIC IMAGING O RDERABLES documented in this encounter Visit Diagnoses Diagnosis Emphysematous gastritis- Primary Other specified disorder of stomach and duodenum Abdominal pain, generalized Emphysematous gastritis Other specified disorder of stomach and duodenum Leukocytosis, unspecified type History of total right hip replacement Bradycardia Other specified cardiac dysrhythmias Abdominal pain, generalized Leukocytosis, unspecified type Emphysematous gastritis Other specified disorder of stomach and duodenum documented in this encounter Administered Medications Active Administered Medications - up to 3 most recent administrations Medication Order MAR Action Action Date Dose Rate Site 0.9% NaCl injection 1-10 mL 1-10 mL, Intracatheter, PRN, Other, peripheral line flush, Starting on Sun04/07/24 at 0448, Until Discontinued, Flush peripheral IV catheter with 1-10 mL of normal saline before and after medications and prn to clear blood from the line or to verify patency. 0.9% NaCl injection 3 mL 3 mL, Intracatheter, EVERY 8 HOURS, First dose on Sun04/07/24 at 0600, Until Discontinued, Flush peripheral IV catheter with 3 mL of normal saline every 8 hours. $ Given 04/10/2024 1:31 PM BUSH H[employer]PERATOR 3 mL $ Given 04/09/2024 9:19 PM B[employer] OPERATOR 10 mL $ Given 04/09/2024 2:09 PM B[employer] H[employer] OPERATOR 3 mL dextrose IV 12.5 g 12.5 g, Intravenous, PRN, Other, Bedside Glucose less than 70 mg/dL -If NOT able to eat and/or NPO and with IV Access, Starting on Sun04/07/24 at 1248, Until Discontinued, If NOT able to eat and/or NPO and with IV Access: For Bedside Glucose 54-69 mg/dL give 12.5 g Dextrose IV STAT For Bedside Glucose LESS than 54 mg/dl verify with a second Bedside Glucose (from a different site) and give 25 g Dextrose IV STAT Re-check and Re-treat blood glucose EVERY , 10-25 minutes until blood glucose GREATER than or equal to 80 mg/dl. NOTIFY PROVIDER OF HYPOGLYCEMIC EVENT. dextrose IV 25 g 25 g, Intravenous, PRN, Other, Bedside Glucose less than 70 mg/dL -If NOT able to eat and/or NPO and with IV Access, Starting on Sun04/07/24 at 1248, Until Discontinued, If NOT able to eat and/or NPO and with IV Access: For Bedside Glucose LESS than 54 mg/dl verify with a second Bedside Glucose (from a different site) and give 25 g Dextrose IV STAT Re-check and Re-treat blood glucose EVERY - 10-25 minutes until blood glucose GREATER than or equal to 80 mg/dl. - If repeat bedside glucose 54-79 give 12.5 g Dextrose IV STAT NOTIFY PROVIDER OF HYPOGLYCEMIC EVENT. glucagon (Glucagen) injection 1 mg 1 mg, Subcutaneous, PRN, Bedside Glucose less than 70 mg/dL - If NOT able to eat and/or NPO and withOUT IV Access, Starting on Sun04/07/24 at 1248, Until Discontinued, If NOT able to eat and/or NPO and NO IV Access: For Bedside glucose 54-69 mg/dL ? - Give 1 mg subcutaneous For Bedside Glucose LESS than 54 mg/dl ? -?verify with a second bedside glucose (from a different site) ? -?Give 1 mg subcutaneous Re-check and Re-treat blood glucose EVERY 10-25 minutes until blood glucose GREATER than or equal to 80 mg/dl.? NOTIFY PROVIDER OF HYPOGLYCEMIC EVENT. Reconstitute vial with 1 mL of sterile water for injection for a final concentration of 1 mg/mL; shake vial gently; use immediately and discard unused portion glucose (Diabetic Use) oral gel Oral, PRN, Other, Bedside Glucose less than 70 mg/dL, Starting on Sun04/07/24 at 1248, Until Discontinued, If able to take oral medications: For Bedside Glucose 54 - 69 mg/dL Give 15 grams of oral carbohydrates - 1 glucose gel (see MAR) If patient refuses glucose gel, then offer: - 4 ounces of fruit juice OR - 4 ounces non-diet soda OR - 8 ounces of fat-free milk For Bedside Glucose LESS than 54 mg/dL verify with a second Bedside Glucose (from a different site) - If pt is symptomatic, do not delay treatment - If accuracy of the POC glucose is in question, confirm glucose with a STAT laboratory test Give 30 grams of oral carbohydrates - 2 glucose gels (see MAR) If patient refuses glucose gel, then offer: - 8 ounces of fruit juice OR - 8 ounces non-diet soda OR - 16 ounces of fat-free milk Re-check and Re-treat blood glucose EVERY 10-25 minutes until blood glucose GREATER than or equal to 80 mg/dl. - If on recheck, bedside glucose 54-79 mg/dL - Give 15 grams of oral carbohydrates (see above for choices) NOTIFY PROVIDER OF HYPOGLYCEMIC EVENT. insulin aspart (NovoLOG) pen 0-6 Units 0-6 Units, Subcutaneous, EVERY 4 HOURS, First dose on Sun04/07/24 at 1600, Until Discontinued, Low Dose: Correction Insulin BG (mg/dL) Corrective Action LESS than 70 follow Hypoglycemic guidelines 70-180 NO Correction insulin 181-220 GIVE 2 units of insulin 221-260 GIVE 3 units of insulin 261-300 GIVE 4 units of insulin 301-350 GIVE 5 units of insulin Greater than 350 GIVE 6 units of insulin and notify physician DO NOT HOLD if Patient is NPO. If patient has orders for Mealtime insulin combine and give at same time. $ Given 04/10/2024 1:29 PM BUSH HOG OPERATOR 2 Units Left Arm $ Given 04/08/2024 5:03 PM BUSH HOG OPERATOR 2 Units Le ft Arm $ Given 04/08/2024 12:20 PM B[employer] HOG OPERATOR 2 Units A bd Left Lower Quadrant insulin glargine (Lantus) pen 6 Units 6 Units, Subcutaneous, AT BEDTIME, First dose (after last modification) on Sun04/07/24 at 2100, Until Discontinued, Obtain current Blood Glucose if necessary . WASTE DISPOSAL INSTRUCTIONS: Black Bin Disposal required. $ Given 04/09/2024 9:36 PM BUSH HOG OPERATOR 6 Units Abdominal Tissue $ Given 04/09/2024 12:09 AM BUSH HOG OPERATOR 6 Units A bdominal Tissue $ Given 04/07/2024 11:42 PM BUSH HOG OPERATOR 6 Units L eft Arm pantoprazole EC (Protonix) tablet 40 mg 40 mg, Oral, 2 TIMES DAILY, 168 doses, First dose on Sun04/10/24 at 2100, Last dose on Sun07/03/24 at 0900, Do not crush, chew, or cut in half. polyethylene glycol 3350 (Miralax) packet 17 g 17 g, Oral, DAILY PRN, Constipation, Starting on Sun04/09/24 at 1309, Until Discontinued, Mix in 8 ounces of water, juice, soda, coffee or tea prior to administration documented in this encounter Active and Recently Administered Medications Times are shown in B[employer]PER[employer]. Scheduled Medication Order 04/08/2024 04/09/2024 04/10/2024 0.9% NaCl injection 3 mL(Linked Group 1) 3 mL, Intracatheter, EVERY 8 HOURS, First dose on Sun04/07/24 at 0600, Until Discontinued, Flush peripheral IV catheter with 3 mL of normal saline every 8 hours. 0600 (Canceled Entry - Provider: Dede Pruett RN)1251 (Not Administered - Provider: Dede Watson RN - Reason: IV Currently Infusing)2142 ($ Given - Provider: Dede Pruett RN) 0410 ($ Given - Provider: Dede Pruett RN)1409 ($ Given - Provider: Dana Buckner, RN)2119 ($ Given - Provider: Dede Pruett RN) 0600 (Canceled Entry - Provider: Dede Pruett RN)1331 ($ Given - Provider: Dana Buckner, ROYER)2200 (Due) cefTRIAXone (Rocephin) syringe 2,000 mg (CANCELED)(Linked Group 2) 2,000 mg, Intravenous, EVERY 24 HOURS, First dose on Sun04/08/24 at 0300, Until Discontinued, Infuse over 3-5 minutes. Mix with 19.2 mL diluent for final concentration 2000 mg/20 mL., Indication for anti-infective therapy: Risk of Infection 0249 ($ Given - Provider: Dede Pruett RN) 0410 ($ Given - Provider: Dede Pruett RN) insulin aspart (NovoLOG) pen 0-6 Units 0-6 Units, Subcutaneous, EVERY 4 HOURS, First dose on Sun04/07/24 at 1600, Until Discontinued, Low Dose: Correction Insulin BG (mg/dL) Corrective Action LESS than 70 follow Hypoglycemic guidelines 70-180 NO Correction insulin 181-220 GIVE 2 units of insulin 221-260 GIVE 3 units of insulin 261-300 GIVE 4 units of insulin 301-350 GIVE 5 units of insulin Greater than 350 GIVE 6 units of insulin and notify physician DO NOT HOLD if Patient is NPO. If patient has orders for Mealtime insulin combine and give at same time. 0400 (Not Administered - Provider: Dede Pruett RN - Reason: Per Administration Instructions)0920 (Not Administered - Provider: Dede Watson RN - Reason: Per Administration Instructions)1220 ($ Given - Provider: Dede Watson RN)1703 ($ Given - Provider: Dede Watson RN)2100 (Not Administered - Provider: Dede Pruett RN - Reason: Per Administration Instructions) 0009 (Not Administered - Provider: Dede Pruett RN - Reason: Per Administration Instructions)0417 (Not Administered - Provider: Dede Pruett RN - Reason: Per Administration Instructions)0941 (Not Administered - Provider: Dana Buckner RN - Reason: Per Administration Instructions)1226 (Not Administered - Provider: Dana Buckner RN - Reason: Per Administration Instructions)1802 (Not Administered - Provider: Dana Buckner RN - Reason: Per Administration Instructions)2100 (Not Administered - Provider: Dede Pruett RN - Reason: Per Administration Instructions) 0000 (Not Administered - Provider: Dede Pruett RN - Reason: Per Administration Instructions)0400 (Not Administered - Provider: Dede Pruett RN - Reason: Per Administration Instructions)0844 (Not Administered - Provider: Dana Buckner RN - Reason: Per Administration Instructions)1329 ($ Given - Provider: Dana Buckner RN)1600 (Due)2000 (Due) insulin glargine (Lantus) pen 6 Units 6 Units, Subcutaneous, AT BEDTIME, First dose (after last modification) on Sun04/07/24 at 2100, Until Discontinued, Obtain current Blood Glucose if necessary . WASTE DISPOSAL INSTRUCTIONS: Black Bin Disposal required. 0009 ($ Given - Provider: Dede Pruett RN)2136 ($ Given - Provider: Dede Pruett RN) 2100 (Due) metroNIDAZOLE (Flagyl) 500 mg in 100 mL IVPB (CANCELED) 500 mg, at 200 mL/hr, Intravenous, EVERY 8 HOURS, First dose on Sun04/07/24 at 1345, Until Discontinued, Controlled Room Temperature, Indication for anti-infective therapy: Risk of Infection 0551 ($ New Bag/Syringe - Provider: Dede Pruett RN)0632 (Stopped - Provider: Dede Pruett RN)1349 ($ New Bag/Syringe - Provider: Dede Watson RN)1419 (Rate Change - Provider: Dede Watson RN)1431 (Stopped - Provider: Dede Watson RN)2148 ($ New Bag/Syringe - Provider: Dede Pruett RN)2218 (Stopped - Provider: Dede Pruett RN) 0422 ($ New Bag/Syringe - Provider: Dede Pruett RN)0455 (Stopped - Provider: Dede Pruett RN) pantoprazole (Protonix) injection 40 mg (CANCELED) 40 mg, Intravenous, DAILY, 3 doses, First dose (after last modification) on Sun04/08/24 at 0900, Last dose on Sun04/10/24 at 0900, For every 40 mg of pantoprazole mix with 10 mL Normal Saline (final concentration = 4 mg/mL). Inject SLOWLY over 2 min. 0805 ($ Given - Provider: Dede Watson RN) pantoprazole (Protonix) injection 40 mg (COMPLETED) 40 mg, Intravenous, 2 TIMES DAILY, 4 doses, First dose (after last modification) on Sun04/08/24 at 2100, Last dose on Sun04/10/24 at 0900, For every 40 mg of pantoprazole mix with 10 mL Normal Saline (final concentration = 4 mg/mL). Inject SLOWLY over 2 min. 2142 ($ Given - Provider: Dede Pruett RN) 0904 ($ Given - Provider: Dana Buckner, RN)2114 ($ Given - Provider: Dede Pruett RN) 0833 ($ Given - Provider: Dana Buckner, ROYER) pantoprazole EC (Protonix) tablet 40 mg 40 mg, Oral, 2 TIMES DAILY, 168 doses, First dose on Sun04/10/24 at 2100, Last dose on Sun07/03/24 at 0900, Do not crush, chew, or cut in half. 2100 (Due) potassium chloride 40 mEq in 270 mL bolus (COMPLETED) 40 mEq, at 67.5 mL/hr, Administer over 4 Hours, Intravenous, ONCE, 1 dose, On Sun04/08/24 at 1100 1051 ($ New Bag/Syringe - Provider: Dede Watson, ROYER)1055 (Rate Change - Provider: Dede Watson, RN)1455 (Stopped - Provider: Dede Watson, RN) potassium chloride 40 mEq in 270 mL bolus (COMPLETED) 40 mEq, at 67.5 mL/hr, Administer over 4 Hours, Intravenous, ONCE, 1 dose, On Sun04/09/24 at 1315 1414 ($ New Bag/Syringe - Provider: Dana Buckner, ROYER)1838 (Stopped - Provider: Dana Buckner, RN) potassium chloride 40 mEq in 270 mL bolus (COMPLETED) 40 mEq, at 67.5 mL/hr, Administer over 4 Hours, Intravenous, ONCE, 1 dose, On Sun04/10/24 at 1000 1028 ($ New Bag/Syringe - Provider: Dana Buckner RN)1439 (Stopped - Provider: Dana Buckner, RN) potassium chloride ER (Klor-Con M) tablet 40 mEq (COMPLETED) 40 mEq, Oral, ONCE, 1 dose, On Sun04/10/24 at 0930, Do not crush or chew. 1019 ($ Given - Provider: Dana Buckner, RN) PRN Medication Order 04/08/2024 04/09/2024 04/10/2024 0.9% NaCl injection 1-10 mL(Linked Group 1) 1-10 mL, Intracatheter, PRN, Other, peripheral line flush, Starting on Sun04/07/24 at 0448, Until Discontinued, Flush peripheral IV catheter with 1-10 mL of normal saline before and after medications and prn to clear blood from the line or to verify patency. dextrose IV 12.5 g(Linked Group 3) 12.5 g, Intravenous, PRN, Other, Bedside Glucose less than 70 mg/dL -If NOT able to eat and/or NPO and with IV Access, Starting on Sun04/07/24 at 1248, Until Discontinued, If NOT able to eat and/or NPO and with IV Access: For Bedside Glucose 54-69 mg/dL give 12.5 g Dextrose IV STAT For Bedside Glucose LESS than 54 mg/dl verify with a second Bedside Glucose (from a different site) and give 25 g Dextrose IV STAT Re-check and Re-treat blood glucose EVERY , 10-25 minutes until blood glucose GREATER than or equal to 80 mg/dl. NOTIFY PROVIDER OF HYPOGLYCEMIC EVENT. dextrose IV 25 g(Linked Group 3) 25 g, Intravenous, PRN, Other, Bedside Glucose less than 70 mg/dL -If NOT able to eat and/or NPO and with IV Access, Starting on Sun04/07/24 at 1248, Until Discontinued, If NOT able to eat and/or NPO and with IV Access: For Bedside Glucose LESS than 54 mg/dl verify with a second Bedside Glucose (from a different site) and give 25 g Dextrose IV STAT Re-check and Re-treat blood glucose EVERY - 10-25 minutes until blood glucose GREATER than or equal to 80 mg/dl. - If repeat bedside glucose 54-79 give 12.5 g Dextrose IV STAT NOTIFY PROVIDER OF HYPOGLYCEMIC EVENT. glucagon (Glucagen) injection 1 mg(Linked Group 3) 1 mg, Subcutaneous, PRN, Bedside Glucose less than 70 mg/dL - If NOT able to eat and/or NPO and withOUT IV Access, Starting on Sun04/07/24 at 1248, Until Discontinued, If NOT able to eat and/or NPO and NO IV Access: For Bedside glucose 54-69 mg/dL ? - Give 1 mg subcutaneous For Bedside Glucose LESS than 54 mg/dl ? -?verify with a second bedside glucose (from a different site) ? -?Give 1 mg subcutaneous Re-check and Re-treat blood glucose EVERY 10-25 minutes until blood glucose GREATER than or equal to 80 mg/dl.? NOTIFY PROVIDER OF HYPOGLYCEMIC EVENT. Reconstitute vial with 1 mL of sterile water for injection for a final concentration of 1 mg/mL; shake vial gently; use immediately and discard unused portion glucose (Diabetic Use) oral gel Oral, PRN, Other, Bedside Glucose less than 70 mg/dL, Starting on Sun04/07/24 at 1248, Until Discontinued, If able to take oral medications: For Bedside Glucose 54 - 69 mg/dL Give 15 grams of oral carbohydrates - 1 glucose gel (see MAR) If patient refuses glucose gel, then offer: - 4 ounces of fruit juice OR - 4 ounces non-diet soda OR - 8 ounces of fat-free milk For Bedside Glucose LESS than 54 mg/dL verify with a second Bedside Glucose (from a different site) - If pt is symptomatic, do not delay treatment - If accuracy of the POC glucose is in question, confirm glucose with a STAT laboratory test Give 30 grams of oral carbohydrates - 2 glucose gels (see MAR) If patient refuses glucose gel, then offer: - 8 ounces of fruit juice OR - 8 ounces non-diet soda OR - 16 ounces of fat-free milk Re-check and Re-treat blood glucose EVERY 10-25 minutes until blood glucose GREATER than or equal to 80 mg/dl. - If on recheck, bedside glucose 54-79 mg/dL - Give 15 grams of oral carbohydrates (see above for choices) NOTIFY PROVIDER OF HYPOGLYCEMIC EVENT. polyethylene glycol 3350 (Miralax) packet 17 g 17 g, Oral, DAILY PRN, Constipation, Starting on Sun04/09/24 at 1309, Until Discontinued, Mix in 8 ounces of water, juice, soda, coffee or tea prior to administration Linked Groups Order Group 1: SALINE LOCK, INSERT AND MAINTAIN Routine, CONTINUOUS, Starting on Sun04/07/24 at 0500, Until Specified, New collection, Task Completed: Yes And 0.9% NaCl injection 3 mLJump to med 3 mL, Intracatheter, EVERY 8 HOURS, First dose on Sun04/07/24 at 0600, Until Discontinued, Flush peripheral IV catheter with 3 mL of normal saline every 8 hours. And 0.9% NaCl injection 1-10 mLJump to med 1-10 mL, Intracatheter, PRN, Other, peripheral line flush, Starting on Sun04/07/24 at 0448, Until Discontinued, Flush peripheral IV catheter with 1-10 mL of normal saline before and after medications and prn to clear blood from the line or to verify patency. Group 2: cefTRIAXone (Rocephin) syringe 2,000 mg (COMPLETED) 2,000 mg, Intravenous, NOW, 1 dose, On Sun04/07/24 at 0500, Infuse over 3-5 minutes. Mix with 19.2 mL diluent for final concentration 2000 mg/20 mL., Indication for anti-infective therapy: Risk of Infection Followed by cefTRIAXone (Rocephin) syringe 2,000 mg (CANCELED)Jump to med 2,000 mg, Intravenous, EVERY 24 HOURS, First dose on Sun04/08/24 at 0300, Until Discontinued, Infuse over 3-5 minutes. Mix with 19.2 mL diluent for final concentration 2000 mg/20 mL., Indication for anti-infective therapy: Risk of Infection Group 3: dextrose IV 12.5 gJump to med 12.5 g, Intravenous, PRN, Other, Bedside Glucose less than 70 mg/dL -If NOT able to eat and/or NPO and with IV Access, Starting on Sun04/07/24 at 1248, Until Discontinued, If NOT able to eat and/or NPO and with IV Access: For Bedside Glucose 54-69 mg/dL give 12.5 g Dextrose IV STAT For Bedside Glucose LESS than 54 mg/dl verify with a second Bedside Glucose (from a different site) and give 25 g Dextrose IV STAT Re-check and Re-treat blood glucose EVERY , 10-25 minutes until blood glucose GREATER than or equal to 80 mg/dl. NOTIFY PROVIDER OF HYPOGLYCEMIC EVENT. Or dextrose IV 25 gJump to med 25 g, Intravenous, PRN, Other, Bedside Glucose less than 70 mg/dL -If NOT able to eat and/or NPO and with IV Access, Starting on Sun04/07/24 at 1248, Until Discontinued, If NOT able to eat and/or NPO and with IV Access: For Bedside Glucose LESS than 54 mg/dl verify with a second Bedside Glucose (from a different site) and give 25 g Dextrose IV STAT Re-check and Re-treat blood glucose EVERY - 10-25 minutes until blood glucose GREATER than or equal to 80 mg/dl. - If repeat bedside glucose 54- 79 give 12.5 g Dextrose IV STAT NOTIFY PROVIDER OF HYPOGLYCEMIC EVENT. Or glucagon (Glucagen) injection 1 mgJump to med 1 mg, Subcutaneous, PRN, Bedside Glucose less than 70 mg/dL - If NOT able to eat and/or NPO and withOUT IV Access, Starting on Sun04/07/24 at 1248, Until Discontinued, If NOT able to eat and/or NPO and NO IV Access: For Bedside glucose 54-69 mg/dL ? - Give 1 mg subcutaneous For Bedside Glucose LESS than 54 mg/dl ? -?verify with a second bedside glucose (from a different site) ? -?Give 1 mg subcutaneous Re-check and Re-treat blood glucose EVERY 10-25 minutes until blood glucose GREATER than or equal to 80 mg/dl.? NOTIFY PROVIDER OF HYPOGLYCEMIC EVENT. Reconstitute vial with 1 mL of sterile water for injection for a final concentration of 1 mg/mL; shake vial gently; use immediately and discard unused portion documented in this encounter Care Teams [employer] Relationship Specialty Start Date [place] [id number] Fara Ross [address] [id number] PCP - General Family Medicine 04/07/24 documented as of this encounter
--- OUTSIDE RECORDS SUMMARY | 2024-04-10 17:13 | XMS_ITS | Continuity of Care Document ---
Author Organization [facility] Address [address] [place] [address] Phone Care Team Providers Care Nurse General Duty Name Role Phone Sebastian Noguera MD Unavailable Unavailable Allergies, Adverse Reactions, Alerts Substance Reaction Status Criticality No Known Allergies Active No Inform ation Medications Medication Instructions Dosage Effective Dates (start - stop) Status Comments escitalopram 10 mg tablet take 1 tablet by oral route every day 10 MG - Active Humulin N NPH U-100 Insulin KwikPen 100 unit/mL (3 mL) subcutaneous inject 40 units by subcutaneous route per prescriber's instructions. Insulin dosing requires individualization. - Active sildenafil 50 mg tablet take 1 tablet by oral route every day as needed approximately 1 hour before sexual activity 50 MG - Active Humalog Mix 50-50 KwikPen U-100 Insulin 100 unit/mL subcutaneous pen inject 40units by subcutaneous route per prescriber's instructions. Insulin dosing requires individualization. - Active ergocalciferol (vitamin D2) 1,250 mcg (50,000 unit) capsule take 1 capsule by oral route every week 02097 UNITS - Active lisinopril 20 mg tablet take 1 tablet by oral route every day 20 MG - Active Synthroid 25 mcg tablet take 1 tablet by oral route every day 25 MCG - Active acetaminophen 500 mg capsule take 2 capsule by oral route every 6 hours as needed 1000 MG - Active aspirin 325 mg tablet take 1 tablet by oral route every day 325 MG - Active Centrum Silver 0.4 mg-300 mcg-250 mcg tablet - Active Vitamin B-12 1,000 mcg tablet TAKE 1 tab - Active Vitamin B-6 100 mg tablet TAKE 1 TAB DAILy - Active Procedures Procedure Date Clin depression screen doc FALL RISK ASSESSMENT DOC'D PRES/ABSN URINE INCON ASSESS PPPS, initial visit SYST BP GE 130 - 139MM HG DIAST BP 80-89 MM HG OFFICE [id number]-[id number] SYST BP LT 130 MM HG DIAST BP 80-89 MM HG PSA, TOTAL ROUTINE VENIPUNCTURE OFFICE QCNRE-NMD-ATJSCMEL FALL RISK ASSESSMENT DOC'D PRES/ABSN URINE INCON ASSESS Pt inelig neg scrn depres OFFICE USFKV-YKN-IPTWYTKH BODY MASS INDEX DOCD SYST BP >= 140 MM HG6 IT DIAST BP 80-89 MM HG PSA, TOTAL ROUTINE VENIPUNCTURE OFFICE KYZMJ-TIL-XWBGCIRS OFFICE EZZOW-VXS-NLKMSVVV BODY MASS INDEX DOCD SYST BP GE 130 - 139MM HG DIAST BP < 80 MM HG OFFICE THUIA-DIW-WTFBJMGE INJECTION, GARAMYCIN, GENTAMICIN, UP TO 80MG THERAPEUTIC, PROPHYLACTIC OR DIAG INJ IN TRA-MUSCLR/SQ ROCEPHIN INJ UP TO 250MG THERAPEUTIC, PROPHYLACTIC OR DIAG INJ IN TRA-MUSCLR/SQ US, TRANSRECTAL ULTRASONIC GUIDANCE NEEDLE BIOPSY, IMG A ND INTRP BIOPSY OF PROSTATE PSA, TOTAL ROUTINE VENIPUNCTURE URINALYSIS, DIPSTICK (UA) - Office Lab M OFFICE LCPWT-MCT-FQQGTOJN FALL RISK ASSESSMENT DOC'D PRES/ABSN URINE INCON ASSESS Pt inelig neg scrn depres OFFICE JHWYC-OFU-DOUUANGO BODY MASS INDEX DOCD SYST BP >= 140 MM HG6 IT DIAST BP 80-89 MM HG OFFICE GHWAB-TUL-ZJKH-MED BODY MASS INDEX DOCD SYST BP >= [...] Diagnoses Date Provider Providers Copied on Encounter [facility], [address], [place], [place], [id number] , tel: [phone] [facility] No Information 4 Chuckie Cortes. [address], [id number] , [place]. tel: [phone] [facility], [address], [place], [place], [address] , [place] tel: [phone] [facility] Rising PSA level 3 Michelle Ingram. [address] Kae Ortega, [facility] [address], [address], [place]. tel: [phone] [facility], [address], [place], [place], [address] , [place] tel: [phone] [facility] Patient encounter (chief complaint)Me dicare preventive (chief complaint) Body mass index [BMI] 33.0-33.9, adultMorbid (severe) obesity due to excess caloriesEssential (primary) hypertensionDiabe tic polyneuropathy associated with type 2 diabetes mellitusErectile dysfunction, unspecified erectile dysfunction typeMedicare annual wellness visit, initialMild major depression 3 Chuckieshashi Cortes. [address] [place] [address], [address], [id number] , . tel: [phone] Referring Provider: Sebastian Archer, [address] [place] [address], [address] . tel:[phone] OFFICE NFVSX-LKY-OC TAILED [facility], [address], [place], [place], [address] , tel: [phone] [facility] Patient encounter (chief complaint) Body mass index [BMI] 39.0-39.9, adultDiabetic polyneuropathy associated with type 2 diabetes mellitusEssential (primary) hypertensionMorbi d (severe) obesity due to excess caloriesRising PSA level 2 Chuckie Sebastian. [address] [place] [address], [address], [id number] , . tel: [phone] Referring Provider: Sebastian Archer, [address] [place] [address], [address] . tel:[phone] [facility], [address], [place], [place], [address] , tel: [phone] [facility] Rising PSA level 2 [address], [place] [address], [place], [address], [place]. tel: [phone] Referring Provider: Haily Morales Dr [place] [address], [place], [address]. tel:[phone] OFFICE IZONO-UWQ-OP PANDED [facility], [address], [place], [place], [address] , tel: [phone] [facility] Rising PSA levelErectile dysfunction, unspecified erectile dysfunction type Sep-2 2 Michelle Ingram. [address] Kae Ortega, [facility] [address], [address], . tel: [phone] Referring Provider: Sebastian Archer, [address] [place] [address], [address] . tel:[phone] OFFICE ZXVJP-IGN-BK TAILED [facility], [address], [place], [place], [address] , tel: [phone] [facility] 6 Month (chief complaint) Body mass index [BMI] 40.0-44.9, adultMorbid (severe) obesity due to excess caloriesEssential (primary) hypertensionDiabe tic polyneuropathy associated with type 2 diabetes mellitusErectile dysfunction, unspecified erectile dysfunction typeMouth sores Apr- 2 Chuckie Cortes. [address] [facility], [facility], [place], [place], [id number] , . tel: [phone] Referring Provider: Sebastian Archer, [address] [place] [address], [place], [address] . tel:[phone] [employer], [address], [place], [place], [address] , tel: [phone] [facility] Elevated PSA Sep-2 1 Michelle Ingram[address], [facility] [address], [address], . tel: [phone] Referring Provider: Juan Jose Martinez, [address] [facility] [address] [place], [address]. tel:[phone] OFFICE GVYRE-YYI-OG PANDED [employer], [address], [place], [place], [address] , tel: [phone] [facility] Erectile dysfunction (chief complaint) Erectile dysfunction, unspecified erectile dysfunction typeElevated PSA Sep-2 [address], [facility] [address], [place], [facility], . tel: [phone] Referring Provider: Sebastian Archer, [address], [address] . tel:[phone] OFFICE TBZGB-RYV-NK TAILED [facility], [address], [place], [place], [address] , tel: [phone] [facility] med tx (chief complaint) Body mass index (BMI) 35.0-35.9, adultElevated PSADiabetic polyneuropathy associated with type 2 diabetes mellitusEssential (primary) hypertensionErect ile dysfunction, unspecified erectile dysfunction type 1 Chuckie Cortes. [address] [facility], [address], [id number] , . tel: [phone] Referring Provider: Sebastian Archer, [address] [place] [address], [address] . tel:[phone] [facility], [address], [place], [place], [address] , tel: [phone] [facility] Prostate cancer (chief complaint) Elevated PSA May-1 [address], [address], [facility], . tel: [phone] Referring Provider: Sebastian Archer, [address] [place] [address], [address] . tel:[phone] [facility], [address], [place], [place], [address] , tel: [phone] [facility] Elevated PSA (chief complaint) Elevated PSA May-0 - 1 [address], [facility] [address], [facility], . tel: [phone] Referring Provider: Sebastian Archer, [address] [facility] [address], [address] . tel:[phone] [facility], [address], [place], [place], [address] , tel: [phone] [facility] Benign prostatic hyperplasia without lower urinry tract symp 1 Chuckie Cortes. [address] [facility], [address], [id number] , . tel: [phone] Referring Provider: Sebastian Archer, [address] [place] [address], [address] . tel:[phone] [facility], [address], [place], [place], [address] , tel: [phone] [facility] Prostate complaint (chief complaint) Enlarged prostate 1 Michelle Ingram. [address] Kae Ortega, [address], [address], [place]. tel: [phone] Referring Provider: Sebastian Archer, [address] [place] [address], [address] . tel:[phone] [facility], [address], [place], [place], [address] , [place] tel: [phone] [facility] med tx (chief complaint) Body mass index (BMI) 36.0-36.9, adultEssential (primary) hypertensionHyper tension associated with diabetesDiabetic polyneuropathy associated with type 2 diabetes mellitusEncounter for screening for malignant neoplasm of colon 1 Chuckie Cortes. [address] [place] [address], [address], [id number] , . tel: [phone] Referring Provider: Sebastian Archer, [address] [place] [address], [address] . tel:[phone] [facility], [address], [place], [place], [address] , tel: [phone] [facility] No Information 1 Chuckie Cortes. [address] [facility], [address], [id number] , [place]. tel: [phone] OFFICE BNUON-HHQ-TQ MP-MED [facility], [address], [place], [place], [address] , [place] tel: [phone] [facility] med tx (chief complaint) Body mass index (BMI) 32.0-32.9, adultScreening PSA (prostate specific antigen)Encounter for screening for malignant neoplasm of colonHypertension associated with diabetesEssential (primary) hypertensionDiabe tic polyneuropathy associated with type 2 diabetes mellitus [address] [place] [address], [address], [id number] , . tel: [phone] Referring Provider: Sebastian Archer, [address] [place] [address], [place], [address] . tel:[phone] Family History Family Member Type Diagnosis Age [...] Unspecified Payers Payer name Insurance type Covered alliance party ID Authoriza tidayanna(s) MEDICARE MB [id number] Social History Type Description Quantity Date Captured [...] guidance, and counseling completed Referral Referred To: [id number] [place] [address]
[address], [phone] Ordered: COLONOSCOPY, Flexible, Proximal To Splenic, Diagnostic, Wor W/O Collection Of Sp ordered Future Order: Lab Order PSA ([id number]), S ent on: Sent History Of Present [...] MEDICATIONS:1. sildenafilATTESTATION:This note has been created using [employer] e[employer] and was completed in the EHR [...] Related to Medicare annual wellness visit, initial monitor Bp and log , call with changes Related to Essential (primary) hypertension followed by dr Kristopher enciso refused additional tests for now Related to Diabetic polyneuropathy associated with type 2 diabetes mellitus Counseled on weight reduction Counseled on dietary changes Dietary management e ducation, guidance, and counseling Related to Body mass index (BMI) 33.0-33.9, adult Exercise followed by urologist Related to Rising PSA level low sodium diet diet and exercis e Related to Essential (primary) hypertension weight loss needed , advised to be more active Related to Morbid (severe) obesity due to excess calories stable check A1c, co nt present medication, cont to watch carbs and keep active Related to Diabetic polyneuropathy associated with type 2 diabetes mellitus Dietary management e ducation, guidance, and counseling Related to Body mass index (BMI) 39.0-39.9, adult Exercise sildenafil Related to Erect ile dysfunction, unspecified erectile dysfunction type 1. Rising PSA level. We will obtain a PSA today. Follow-up in 1 year with a PSA prior.I have reviewed and discussed the patient's labs with him today.ATTESTATION:This note has been created using yetu and was completed in the EHR by Joy Matos. Related to Rising PSA level stable, continue to control risk factors Related to Erectile dysfunction, unspecified erectile dysfunction type stable , continue tr eatment with specialist Related to Mouth sores stable check A1c, co nt present medication, cont to watch carbs and keep active Related to Diabetic polyneuropathy associated with type 2 diabetes mellitus low sodium diet diet and exercis e Related to Essential (primary) hypertension weight loss beneficial Related t o Morbid (severe) obesity due to excess calories Dietary management e ducation, guidance, and counseling Related to Body mass index (BMI) 40.0-44.9, adult Exercise check PSA today. Check PSA one y [...] to Scree liudmila PSA (prostate specific antigen) stable, continue to control risk factors Related to Essential (primary) hypertension low sodium diet diet and exercis e Related to Hypertension associated with diabetes stable check A1c, co nt present medication, cont to watch carbs and keep active Related to Diabetic polyneuropathy associated with type 2 diabetes mellitus Dietary management e ducation, guidance, and counseling Related to Body mass index (BMI) 32.0-32.9, adult Giving encouragement to exercise Related to Body mass index (BMI) 32.0-32.9, adult Assessments Type Assessment Date No Information Patient Care Teams Name Effective Dates (start - stop) Status Members No Information
--- OUTSIDE RECORDS SUMMARY | 2024-04-10 17:13 | XMS_ITS | Encounter Summary ---
Author Organization [facility] Address [address] [place] [address] Care Team Providers Care Real Estate Administrator Name Role Phone Chuckie Chavira MD, Sebastian Grace Primary Care Provid er Reason for Referral * Procedure (Routine) - Open Specialty Diagnoses / Procedures Referred By Contac t Referred To Contact Gastroenterology Diagnoses Emphysematous gastritis Leukocytosis, unspecified type History of total right hip replacement Bradycardia Procedures EGD Fadi Arita DO [address] [place] [address] [facility] [address] [facility], [place] [address] Referral ID Status Reason Start Date Expiration Date Visits Re quested Visits Authorized [id number] Open 04/10/2024 04/10/2025 1 1 DRILLER Reason for Visit * Reason Comments Pain Abdominal 69 y/o M BIBEMS from [facility] with concerns for ischemic gastritis. Patient recently had a fall at home and remained down for a few days, underwent hemiarthroplasty. Per OSH, scans showed abdominal distention. Presents without abdominal pain, GCS 15. * Auth/Cert (Routine) Specialty Diagnoses / Procedures Referred By Contac t Referred To Contact Diagnoses gastritis Referral ID Status Reason Start Date Expiration Date Visits Re quested Visits Authorized [id number] 1 1 Encounter Details Date Type Department Care Team (Late st Contact Info) Description 04/07/2024 4:47 AM WELL DRILLER - Present Hospital Encounter SL 7N ACUTE [address] [place] [phone] Jamaal White, DO [address] [facility] [place] [phone] Rachel Jay MD [address] [facility] [address] OF [place] [phone] Bruce Cullen III, MD [address] [place], [place] [id number] Emanuel Dempsey DO [address] [place] [address] Fadi Arita DO [address] [facility] [address] [place], [place] [id number] Emergency Medicine Social History Tobacco Use Types Packs/Day Years [...] medical care, and heating? Patient declined 04/07/2024 [facility] [place] of Occupat ional Health - Occupational Stress [...] any time in the past 12 m [facility], were you homeless or living in a m[facility]p (including now)? Patient declined 04/07/2024 Sex and Gender Information Value Date Recorded Sex Assigned at Not on file Gender Identity Not on file Sexual Orientation Not on file documented as of this encounter Last Filed Vital Signs Vital Sign Reading Time Taken Comments Blood Pressure 158/81 04/10/2024 11:34 AM WELL DRILLER Pulse 83 04/10/2024 11:34 AM WELL DRILLER Temperature 36.7 ??C (98.1 ??F) 04/10/2024 11:[address] Respiratory Rate 18 04/10/2024 11:34 AM WELL DRILLER Oxygen Saturation 92% 04/10/2024 11:34 AM WELL DRILLER Inhaled Oxygen Concentration - - Weight 97.5 kg (215 lb) 04/07/2024 6:19 PM WELL DRILLER Height 188 cm (6' 2 ) 04/07/2024 6:19 PM WELL DRILLER Body Mass Index 27.6 04/07/2024 6:19 PM WELL DRILLER documented in this encounter Functional Status Functional [...] Encinas, OT - 04/10/2024 3:47 PM CST [facility] Physical Medicine and Rehabilitation Occupational Therapy Progress Note Patient: Luis Daniel Ford Med Record Number: [id number] Date of : 1955 Age: [age] year [...] with HOB flat Sit to Supine: Complete [place] Transfers: Sit to Stand: Minimal Assistance Stand to Sit: Minimal Assistance Toilet Transfers: Complete [place] Functional Ambulation: Patient ambulated to/from bathroom with min assist using ww. Balance: Sitting - Static: Good Sitting - Dynamic: Good - Standing - Static: Good - Standing - Dynamic: Fair + (with ww when not feeling dizzy/lightheaded) Activities of Daily Living: Feeding: Complete [place] Upper Body Dressing: Set-up;Stand By Assist Lower [...] Following therapy session, patient left in bed. DRILLER * Jose Arteaga MSW - 04/10/2024 3:19 PM CST Social Work Progress Note Discharge Plan Disposition: ARU Transportation: Transportation at discharge: Ambulance Anticipated Discharge Date: 04/11/2024 Contacts: Extended Emergency Contact Information Primary Emergency Contact: Iwona Ford Address: [address] [place] [address] of [place] Relation: Spouse Preferred language: Jordanian Machine Packer needed? No Comments: SW spoke to Aleshia @[phone] with [facility], and she is saying they are able toaccept this patient, but there's a few barriers to discharge for them: 1) Patient will have to not be Orthostatic. 2) What is causing the Potassium to be so low? 3) Patient will need to be 24 hours free of the IV meds. 4) The Impaction will need to be completely gone before they can admit. SW will continue to follow up. Update: Per Katy Lambert MD, It may take a few days for the potassium to improve, may be due to himnot eating well recently. Impaction is improved, he is now stooling. And we are treating orthostatic hypotension, will need to see how the compression stockings do FREDY Joyner [phone] DRILLER * Leah Khalil RN - 04/10/2024 1:53 [...] Information Primary Emergency Contact: Iwona Ford Address: [address] [place] [address] Mobile Relation: Spouse Preferred language: Jordanian Machine Packer needed? No Transportation at Discharge: Ambulance: READMISSION RISK SCORE is 14 at 1:53 PM 04/10/2024.: Name: Leah Khalil RN DRILLER * Krista Norton PT - 04/10/2024 1:20 PM CST [facility] Physical Medicine and Rehabilitation Physical Therapy Progress Note Patient: Luis Daniel Ford Med Record Number: [id number] Date of : 1955 Age: [age] year [...] ambulate 50 feet with stand by assist Antique Clock Repairer Goal(s): Patient to discharge to appropriate next [...] visible on white board, all lines/tubes intact. DRILLER * Leah Khalil RN - 04/09/2024 1:44 PM CST Care Coordination Progress Note Expected Discharge Date: 04/11/2024 Discharge Plan: SNF / AR Patient discussed in MDR. Patient is on last day of IV protonix. Possible d/c 04/11/2024. CM to continue following for planning of d/c needs. Family Support (Name and Phone): Extended Emergency Contact Information Primary Emergency Contact: Iwona Ford Address: [address] [place] [address] Mobile Relation: Spouse Preferred language: Jordanian Machine Packer needed? No Transportation at Discharge: Ambulance: READMISSION RISK SCORE is 15 at 1:44 PM 04/09/2024.: Name: Leah Khalil RN DRILLER * Kassy Otero - 04/09/2024 11:56 AM CST [facility] INTERNAL MEDICINE PROGRESS NOTE Patient: Luis [...] dizzy and [place] [facility] [place] a [place] [facility] fracture and he is reportedly s/p bipolar hemiarthroplasty with orthopedics on 04/01. Per the , they had plans to discharge him to [facility] rehab but he developed electrolyte derangements and persistent hypokalemia that prompted CT scan while at [place], which showed concern for emphysematous gastritis and transfer to [facility] for ACS evaluation was requested. On arrival, [...] results for input(s): BOO in the last 08020 hours. Recent Labs Component Name 04/07/24 0536 LIPASE 4* Thyroid: Recent Labs Lab 04/08/24 08 TSH 2.481 Lipid: No results for input(s): LDLCALC , HDL in the last 26229 hours. Microbiology: BLOOD CULTURE (04/07/24) PRELIMINARY RESULT: [...] (POA: Yes) #Gastric emphysema - Transferred to [facility] d/t concern for emphysematous gastritis seen on [...] attested by attending physician. Kassy Otero MS4 [facility] 04/09/2024 1:29 PM DRILLER Associated attestation - Fadi Arita DO - 04/09/2024 4:49 PM WELL DRILLER I have verified the documentation of the [...] Internal Medicine 04/09/2024 4:48 PM * Lola Blanchard, OT - 04/09/2024 11:34 AM CST [facility] Physical Medicine and Rehabilitation Occupational Therapy Initial Evaluation Note Patient: Luis Daniel Ford Med Record Number: [id number] Date of : 1955 Age: [age] year [...] bed to chair with stand by assist Antique Clock Repairer Goal(s): Patient to discharge to appropriate next [...] , with call light within reach, with RN, Melita aware, with therapy cues visible on white board. DRILLER * Tamara Jain, PT - 04/09/2024 11:32 AM CST [facility] Physical Medicine and Rehabilitation Physical Therapy Initial Evaluation Note Patient: Luis Daniel Ford Med Record Number: [id number] Date of : 1955 Age: [age] year [...] ambulate 50 feet with stand by assist Antique Clock Repairer Goal(s): Patient to discharge to appropriate next [...] , with call light within reach, with Dana LINTON aware, with therapy cues visible on white board, all lines/tubes intact. DRILLER * Kassy Otero - 04/08/2024 2:18 PM CST [facility] INTERNAL MEDICINE PROGRESS NOTE Patient: Luis [...] dizzy and [place] [facility] [place] [facility] [place] a [facility] neck fracture and he is reportedly s/p bipolar hemiarthroplasty with orthopedics on 04/01. Per the , they had plans to discharge him to [facility] rehab but he developed electrolyte derangements and persistent hypokalemia that prompted CT scan while at [place], which showed concern for emphysematous gastritis and transfer to [facility] for ACS evaluation was requested. On arrival, [...] Lab Results: CBC: Recent Labs Lab 04/08/24 08 WBC 12.2* HGB 10.9* HCT 30.7* MCV 85.0 PLTCOUNT 283 BMP: Recent Labs Lab 04/08/24 08 NA 135* POTASSIUM 3.0* CL 101 CO2 25 BUN 12 CREATININE 0.65* CALCIUM 7.7* MAGNESIUM 1.8 PHOS 2.6* Hepatic: Recent Labs Lab 04/08/24 0802 04/07/24 0536 AST -- 13 ALT -- 11 TBILI -- 0.7 ALKPHOS -- 58 ALB 1.9* 2.1* PROT -- 5.2* Coagulation: Recent Labs Lab 04/07/24535 PT 17.1* INR 1.4 ABG: Recent Labs Lab 04/06/221957 PH 7.46* Cardiac: Recent Labs Lab 04/07/22 0443 04/07/22 0151 04/06/221957 TROPONINI <0.010 <0.010 <0.010 Amylase/Lipase: No results for input(s): BOO in the last 98772 hours. Recent Labs Component Name 04/07/24 0536 LIPASE 4* Thyroid: Recent Labs Lab 04/08/24 08 TSH 2.481 Lipid: No results for input(s): LDLCALC , HDL in the last 27048 hours. Microbiology: BLOOD CULTURE (04/07/24) PRELIMINARY RESULT: [...] (POA: Yes) #Gastric emphysema - Transferred to [facility] d/t concern for emphysematous gastritis seen on [...] attested by attending physician. Kassy Otero MS4 [facility] 04/08/2024 2:18 PM DRILLER Associated attestation - Fadi Arita DO - 04/08/2024 5:15 PM WELL DRILLER I have verified the documentation of the [...] Blanchard OT - 04/08/2024 10:34 AM CST [facility] Department of Physical Medicine & Rehabilitation Progress Note Patient: Luis [facility] Record Number: [id number] Date of : 1955 Age: [age] year old 04/08/24 1000 Missed Visit Missed Visit Weight Bearing Status OT orders received. Spoke with white team, cancel OT this am pending ortho consult and weight bearing clarification. Will cont to follow. DRILLER * Lupe Mayo MD - 04/08/2024 10:13 [...] 0.65* 0.65* 0.82 Recent Labs Component Name 04/08/2480104/07/2453504/06/22205107/06/16 1529 AST - 13 7 14 ALT [...] the mesorectal fat, may be suggestive of stercoralcolitis. 4.Distended gallbladder with sludge and millimetric stones. Clinical evaluation is suggested to rule out cholecystitis. 5.Bilateral small pleural effusions with associated atelectasis. 6.Mild pericardial fluid measuring up to 13 mm. > Dictated by Karthikeyan Barreto MD, (president/gm production & live experiences). I,Tara Souza MD have personally reviewed and interpreted this examination/study. > InterpretingProvider: Tara Souza MD on 04/07/2024 11:33 AM [...] verification. > Dictated by Pablo Potter DO (Research Statistician), 04/07/2024 6:23 AM. INessa MD have personally [...] IM resident on Gastroenterology & Hepatology Service. [facility] DRILLER Associated attestation - Wild Valdez MD - 04/08/2024 1:35 PM WELL DRILLER Images from the original note were not included. GI & Hepatology Attending In Patient Consult Note I concur with the plan documented in the [place]/Resident note - please refer to this for [...] this service as noted above. * Krista Norton PT - 04/08/2024 10:00 AM CST [facility] Department of Physical Medicine & Rehabilitation Progress Note Patient: Luis Daniel Ford Med Record Number: [id number] Date of : 1955 Age: [age] year old 04/08/24 0900 Missed Visit Missed Visit Weight Bearing Status PT orders received. Spoke with white team, cancel PT this am pending ortho consult and weight bearing clarification. Will cont to follow. DRILLER * Candido Allen MD - 04/08/2024 9:02 AM CST [facility] Acute Care Surgery Progress Note Admit: 04/07/2024 4:47 AM Date: April 08, 2024 Length of Stay: 1 Admitting Attending: Fadi Arita DO POD:1 Day Post-Op SUBJECTIVE: History: Luis Daniel Ford is a 69 year old male with PMH T1DM, HTN, hypothyroidism who presented as transfer from [facility] with right femoral neck fracture s/p fixation on 04/01/24. 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 Transferred to [facility] for further evaluation. ACS consulted for concern [...] DIET NPO Except: NO EXCEPTIONS Is&Os: 04/07 0701 - 04/08 699 In: 705.7 [I.V.:705.7] Out: 1300 [Urine:1300] Date 04/07/24699 - 04/08/2465804/08/24699 - 04/09/24658 Shift 8276-8539 5813-4697 24 Hour Total 2476-7738 1368-3093 24 Hour Total INTAKE P.O. 0 0 [...] 21.0 - CBC Recent Labs Component Name 04/08/24 0802 04/07/2453504/06/221957 WBC 12.2* 18.7* 9.8 HGB 10.9* 11.6* 16.6 HCT 30.7* 32.0* 45.8 PLTCOUNT 283 307 222 BMP Recent Labs Component Name 04/07/2453504/06/22205101/10/167 01/08/162009 SODIUM - - 134* 136 POTASSIUM 4.5 2.5* 4.0 3.5 CHLORIDE - - 103 99 CO2 * 25 28 BUN 17 6* 15 15 CREATININE 0.65* 0.82 0.87 1.28 GLUCOSE 193* 186* 328* 176* CALCIUM 8.1* 7.3* 8.4* 8.6 LFTs Recent Labs Component Name 04/07/24 0536 04/06/22205107/06/16 1529 01/08/162009 TPROT - - 7.9 7.9 ALBUMIN - - 3.9 3.9 AST 13 7 14 10 ALT 11 9 22 20 ALKPHOS 58 47 73 83 TBIL - - 0.4 0.5 Coags Recent Labs Component Name 04/07/24 0536 PT 17.1* INR 1.4 ASSESSMENT: Luis Daniel Ford is a 69 year old male admitted with emphysematous gastritis. PMH of T1DM, HTN, hypothyroidism presenting as transfer from [place] following femoral neck fracture repair. CT a/p [...] conclusion. Candido Allen MD 04/08/2024 3:38 PM DRILLER Associated attestation - Raciel Castellanos MD - 04/09/2024 3:32 PM WELL DRILLER Pt seen and examined with ACS team [...] since I knew he was awake. (Iwona [phone]) said she asked him and that he didn't know anything. Informed that I would let the doctor know she is asking for an update. 2106 Dr Donavon Marie said he would call Iwona. 2139 at bedside with pt as Curtis MARCANO assisting pt with bedpan. Pt says many [...] informed. Pt wearing thigh high osmar hose. MD also said to continue with Lantus even though pt is NPO 2314 pt continues to pass liquid stool but also a large formed stool. Incontinenet presently because he did not have a bedpan. Stool specimen sent as ordered DRILLER * Vel Harden DO - 04/07/2024 3:36 [...] DO PGY-IV Division of Gastroenterology and Hepatology [facility] DRILLER Associated attestation - Wild Valdez MD - 04/07/2024 4:52 PM WELL DRILLER Images from the original note were not included. GI & Hepatology Attending In Patient Consult Note I concur with the plan documented in the [place]/Resident note - please refer to this for [...] for this service as noted above. * Laura Richardson RN - 04/07/2024 1:33 PM CST Care Coordination Initial Assessment Expected Discharge Date: 04/10/2024 Expected Discharge Disposition: Correction Facility Transportation at Discharge: Ambulance Prior Level of Care: Home Prior to Admit Provider: Comments: Pt is a 69 year old male with PMH T1DM, HTN, hypothyroidism [facility] s/p fixation on 04/01/24. Spoke with pt's Iwona and pt's discharge plan at [facility] was to go to [facility] for therapy after hip surgery. CM will follow for discharge needs at [facility]. Lives with: Spouse/Significant Other Physical Limitations: None Requires Assistance With: None Preferred Pharmacy: [id number] - [phone] [facility] [phone] [address] [facility] [phone] READMISSION RISK SCORE is 10 at 1:34 PM 04/07/2024. Met with spouse Family Support (name and phone): Extended Emergency Contact Information Primary Emergency Contact: Iwona Ford Address: [address] [place] [address] Mobile Relation: Spouse Preferred language: Jordanian Machine Packer needed? No Patient or signs sales representative requests care coordination reach out to family or caregiver listed above regarding discharge planning and at time of discharge? Yes Actual Level of Care/Dispostion Details Durable Medical Equipment Planning Equipment at Home: None Manager Medicare Marketing Referral: No Will continue to follow. For any questions or needs please contact: Sales Associate Fishing/Social Work Name/Phone number: Laura Richardson RN DRILLER * Jaron Carlton - 04/07/2024 4:57 AM CST Machine Printer Hose responded to medical resuscitation page. 69 year old male, transfer from [facility]. Patient alert and communicating with medical team. Patient's spouse aware of transfer to [facility]. No pastoral care needs at this time. Please call Ascom [phone] for further pastoral care support. Jaron Carlton 04/07/2024 4:58 AM DRILLER * Brooklyn Lloyd MSW - 04/07/2024 4:43 AM CST Medical Resuscitation Note Medical Resuscitation Page: PTs Name: Dima Ford : 53 EMS Company: [employer] location: [place] Family Contact: Spouse Iwona Ford [phone] POA/DPOA/Advance Directives Available: Substance Abuse: Pendng Comments: Pt arrived as transfer from [facility]. Per EMS pts family aware of transfer to [facility] and requesting update once available. Pt working with medical team, full assessment deferred at this time. SW will continue to follow for additional needs. DRILLER documented in this encounter H&P Notes * Vel Harden - 04/07/2024 2:42 PM CST PRE-PROCEDURE HISTORY [...] there are no changes. Vel Harden DO DRILLER * Adelia Hough DO - 04/07/2024 11:26 AM CST [facility] Internal Medicine History and Physical Date of [...] dizzy [place] a [place] [facility] neck fracture and he is reportedly s/p bipolar hemiarthroplasty with orthopedics on 04/01. Per the , they had plans to discharge him to [facility] rehab but he developed electrolyte derangements and persistent hypokalemia that prompted CT scan while at [place], which showed concern for emphysematous gastritis and transfer to [facility] for ACS evaluation was requested. On arrival, [...] ??F (36.3 ??C) Pulse: [86-103] 103 Resp: [01-10] 10 BP: (102-126)/(61-79) 120/72 Physical Exam: Physical [...] Lab Results: CBC: Recent Labs Component Name 04/07/2453504/06/22195701/10/16 0327 WBC 18.7* 9.8 6.8 HGB 11.6* 16.6 13.9 HCT 32.0* 45.8 39.3 MCV 83.6 83.0 84.9 Coagulation Panel: Recent Labs Component Name 04/07/24535 PT 17.1* INR 1.4 BMP: Recent Labs Component Name 04/07/2453504/06/22205101/10/16 0327 NA 134* 141 - POTASSIUM 4.5 2.5* 4.0 CL 103 109* - CO2 23 * 25 BUN 17 6* 15 CREATININE 0.65* 0.82 0.87 CALCIUM 8.1* 7.3* 8.4* No results for input(s): MAGNESIUM in the last 44374 hours. No results for input(s): PHOS in the last 05618 hours. Hepatic Panel: Recent Labs Component Name 04/07/2436 04/06/22205107/06/16 1529 AST 13 7 14 ALT 11 9 22 ALKPHOS 58 47 73 TBILI 0.7 0.7 - ALB 2.1* 3.2* - ABG: Recent Labs Component Name 04/06/22195701/08/162023 PH 7.46* 7.41 PCO2 - 38 PO2 - 77* Amylase/Lipase: Invalid input(s): AMYL , LIPA Thyroid Studies: Recent Labs Component Name 01/08/162009 TSH 11.9* Cardiac Enzymes: Recent Labs Component Name 04/07/24 0536 04/07/22 0443 04/07/22 0151 04/06/221957 CKTOTAL 25* - - - TROPONINI - <0.010 <0.010 <0.010 Lipid Panel: No results for input(s): LDLCALC , HDL in the last 04370 hours. UA: Pending Microbiology: Pending Imaging & Studies: Reviewed Assessment/Plan Abdominal pain, generalized (POA: Unknown) Emphysematous gastritis (POA: Unknown) Leukocytosis, unspecified type (POA: Unknown) #Gastric emphysema - transferred to [facility] d/t concern for emphysematous gastritis seen on [...] Hough DO Internal Medicine Resident [facility] 04/07/2024 2:12 PM DRILLER Associated attestation - Emanuel Dempsey DO - 04/07/2024 4:24 PM WELL DRILLER I have seen and examined the patient with the resident and I agree with the findings and plan of care as documented by Dr. Hough. Active Problems: Abdominal pain, generalized Emphysematous gastritis Leukocytosis, unspecified type Stercoral colitis Date of Service: 04/07/2024 Emanuel Dempsey DO documented in this encounter Consult Notes * Jacqui Bueno RD/JACKIE - 04/08/2024 12:20 PM CST BRIEF SYNOPSIS: Nutrition Risk Identified but does not meet malnutrition criteria. 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 Note - Consult not attached as order [...] HTN, hypothyroidism who presents as transfer from [facility] where he was admitted with right femoral neck fracture s/pfixation on 04/01/24. He subsequently developed constipation, abdominal pain, and distension prompting workup with imaging concerning for emphysematous gastritis. He was transferred to [facility] for further evaluation Height: 188 cm (6' [...] surgery at OSH 1.14) Estimated Needs: KCAL: 5719-2079 (25-30) Protein (g): 86-103 (1-1.2) Fluid (ml): [...] - 8.4* 8.6 ALT - 11 9 22 - 20 ALKPHOS - 58 47 73 [...] results for input(s): HGBA1C in the last 49100 hours.Patient Vitals for the past 30 hrs: [...] Goal Progress: New goal established Ascom 7619 DRILLER * Lupe Mayo MD - 04/07/2024 9:18 AM CST GASTROENTEROLOGY CONSULT Luis Daniel Ford Age: [age] year old Date of : 1955 Date of Admission: 04/07/2024 Reason for Consult: Emphysematous gastroenteritis? Subjective: History of Present Illness: Luis Daniel Ford is a 69 year old male with a history of T1DM, HTN, and hypothyroidism who is being transferred from [facility] after CT imaging with findings concerning for [...] gastritis. Consequently, the patient was transferred to [facility] for further management. During my interaction with [...] no asterixis Labs: Recent Labs Component Name 04/07/2436 04/06/22195701/10/1632601/08/162009 WBC 18.7* 9.8 6.8 11.9* HGB 11.6* 16.6 13.9 15.3 MCV 83.6 83.0 84.9 84.6 INR 1.4 - - - Recent Labs Component Name 04/07/24 0536 04/06/22205101/10/16326 NA 134* 141 - CL 103 109* - CO2 23 21* 25 BUN 17 6* 15 CREATININE 0.65* 0.82 0.87 Recent Labs Component Name 04/07/24 0536 04/06/22205107/06/16 1529 AST 13 7 14 ALT 11 [...] Medicine Resident on Gastroenterology & Hepatology Service [facility] DRILLER Associated attestation - Wild Valdez MD - 04/07/2024 11:35 AM WELL DRILLER Images from the original note were not included. GI & Hepatology Attending In Patient Consult Note Diagnosis: Emphysematous gastritis on CT Abdo is soft and non tender - no clinical signs of perforation Plan: Repeat CT EGD I concur with the plan documented in the [place]/Resident note - please refer to this for [...] HTN, hypothyroidism who presents as transfer from [facility] where he was admitted with right femoral neck fracture s/p fixation on 04/01/24. He subsequently developed constipation, abdominal pain, and distension prompting workup with imaging concerning for emphysematous gastritis. He was transferred to [facility] for further evaluation. On exam, patient HDS. [...] , PTT , INR in the last [id number] hours. Imaging: XR CHEST 1VW PORTABLE Result [...] verification. > Dictated by Pablo Potter DO (Research Statistician), 04/07/2024 6:23 AM. I, Nessa Hickman MD [...] Dr. Emanuel Davidson MD 04/07/2024 6:23 AM DRILLER Associated attestation - Raciel Castellanos MD - 04/09/2024 3:31 PM WELL DRILLER Pt seen and examined with ACS team [...] questions answered, pt stable at this time. DRILLER * Rut Luna RN - 04/07/2024 9:35 AM CST Pt placed on bed eduardo. Pt had BM that was liguid and brown. Bed eduardo removed and sheets from OSH removed. DRILLER * Rachel Jay MD - 04/07/2024 7:28 [...] 3. Leukocytosis, unspecified type D72.829 ADMIT TO DRILLER * Kingston Becerril RN - 04/07/2024 7:04 AM CST Bed: AC31 Expected date: Expected time: Means of arrival: Comments: T3 DRILLER documented in this encounter Plan of Treatment Pending Results Name Type Priority Associated Diagnoses Date /Time CULTURE BLOOD Microbiology Timed 5 5:36 AM WELL DRILLER CULTURE BLOOD Microbiology Timed 5 5:47 AM WELL DRILLER RENAL FUNCTION PANEL Lab Routine 03/20 4:24 PM WELL DRILLER Scheduled Orders Name Type Priority Associated Diagnoses [...] POINT OF CARE Routine 04/10/2024 12:24 PM WELL DRILLER GLUCOSE - POINT OF CARE Routine 04/10/2024 8:44 AM WELL DRILLER CBC W AUTO DIFFERENTIAL Routine 04/10/2024 6:15 AM WELL DRILLER RENAL FUNCTION PANEL Routine 04/10/2024 6:15 AM WELL DRILLER MAGNESIUM BLOOD Routine 04/10/2024 6:15 AM WELL DRILLER GLUCOSE - POINT OF CARE Routine 04/10/2024 3:33 AM WELL DRILLER GLUCOSE - POINT OF CARE Routine 04/10/2024 12:03 AM WELL DRILLER GLUCOSE - POINT OF CARE Routine 04/09/2024 8:49 PM WELL DRILLER GLUCOSE - POINT OF CARE Routine 04/09/2024 5:20 PM WELL DRILLER XR HIP RIGHT 2VW OR MORE STAT 04/09/2024 1:29 PM WELL DRILLER History of total right hip replacement GLUCOSE - POINT OF CARE Routine 04/09/2024 12:18 PM WELL DRILLER GLUCOSE - POINT OF CARE Routine 04/09/2024 8:47 AM WELL DRILLER CBC W AUTO DIFFERENTIAL Routine 04/09/2024 5:56 AM WELL DRILLER RENAL FUNCTION PANEL Routine 04/09/2024 5:56 AM WELL DRILLER MAGNESIUM BLOOD Routine 04/09/2024 5:56 AM WELL DRILLER GLUCOSE - POINT OF CARE Routine 04/09/2024 4:15 AM WELL DRILLER GLUCOSE - POINT OF CARE Routine 04/09/2024 12:09 AM WELL DRILLER GLUCOSE - POINT OF CARE Routine 04/08/2024 8:47 PM WELL DRILLER GLUCOSE - POINT OF CARE Routine 04/08/2024 4:56 PM WELL DRILLER GLUCOSE - POINT OF CARE Routine 04/08/2024 11:19 AM WELL DRILLER GLUCOSE - POINT OF CARE Routine 04/08/2024 8:51 AM WELL DRILLER TSH REFLEX FREE T4 Routine 04/08/2024 8: 02 AM WELL DRILLER HEMOGLOBIN A1C Routine 04/08/2024 8:02 AM WELL DRILLER CBC W AUTO DIFFERENTIAL Routine 04/08/2024 8:02 AM WELL DRILLER RENAL FUNCTION PANEL Routine 04/08/2024 8:02 AM WELL DRILLER MAGNESIUM BLOOD Routine 04/08/2024 8:02 AM WELL DRILLER GLUCOSE - POINT OF CARE Routine 04/08/2024 3:51 AM WELL DRILLER GLUCOSE - POINT OF CARE Routine 04/07/2024 11:55 PM WELL DRILLER HELICOBACTER PYLORI ANTIGEN FECES Routine 04/07/2024 11:18 PM WELL DRILLER URINALYSIS REFLEX TO MICROSCOPIC NO CULTURE Routine 04/07/2024 11:18 PM WELL DRILLER CULTURE URINE Routine 04/07/2024 11:18 PM WELL DRILLER GLUCOSE - POINT OF CARE Routine 04/07/2024 7:15 PM WELL DRILLER URINE MICROSCOPIC ONLY REFLEX TO CULTURE STAT 04/07/2024 5:46 PM WELL DRILLER URINALYSIS REFLEX MICROSCOPIC REFLEX CULTURE STAT 04/07/2024 5:46 PM WELL DRILLER EGD Routine 04/07/2024 2:55 PM WELL DRILLER VA ED EGD FLEX TRANSORAL DX 04/07/2024 2:48 PM WELL DRILLER Emphysematous gastritis GLUCOSE - POINT OF CARE Routine 04/07/2024 2:[address] ANGIO CHEST ABDOMEN PELVIS STAT 04/07/2024 10:13 AM WELL DRILLER Abdominal pain, generalized CULTURE BLOOD Timed 04/07/2024 5:47 AM WELL DRILLER PT-INR [facility] STAT 04/07/2024 5:36 AM WELL DRILLER LACTIC ACID BLOOD REFLEX TO REPEAT STAT 04/07/2024 5:36 AM WELL DRILLER CULTURE BLOOD Timed 04/07/2024 5:36 AM WELL DRILLER CBC W AUTO DIFFERENTIAL STAT 04/07/2024 5:36 AM WELL DRILLER COMPREHENSIVE METABOLIC PANEL STAT 04/07/2024 5:36 AM WELL DRILLER LIPASE BLOOD STAT 04/07/2024 5:36 AM WELL DRILLER CK BLOOD STAT 04/07/2024 5:36 AM WELL DRILLER XR CHEST 1VW PORTABLE STAT 04/07/2024 5:16 AM WELL DRILLER Abdominal pain, generalized documented in this encounter Results * (ABNORMAL) GLUCOSE - POINT OF CARE (04/10/2024 12:24 PM WELL DRILLER) Glucose WB/POC 205(H) 70 - 99 mg/dL 04/10/2024 12:55 PM WELL DRILLER [facility] Specimen Type Venous 04/10/2024 12:55 PM [facility] Blood BLOOD SPECIMEN / Unknown 04/10/2024 12:24 PM WELL DRILLER 04/10/2024 12:55 PM WELL DRILLER Fadi Arita LAB - POINT OF CARE ORDERABLES Performing Organization Address City/[facility]/ZIP Co de Phone Number [address] [address], [facility] [phone] * (ABNORMAL) GLUCOSE - POINT OF CARE (04/10/2024 8:44 AM WELL DRILLER) Glucose WB/POC 139(H) 70 - 99 mg/dL 04/10/2024 8:48 AM [facility] Specimen Type Venous 04/10/2024 8:48 AM [facility] Blood BLOOD SPECIMEN / Unknown 04/10/2024 8:44 AM WELL DRILLER 04/10/2024 8:48 AM WELL DRILLER Fadi Arita LAB - POINT OF CARE ORDERABLES [address] [address], [place] [phone] * (ABNORMAL) RENAL FUNCTION PANEL (04/10/2024 6:15 AM WELL DRILLER) BUN 6(L) 7 - 26 mg/dL 04/10/2024 7:15 AM [facility] Creatinine 0.60(L) 0.71 - 1.16 mg/dL 04/10/2024 7:15 AM [facility] Sodium 135(L) 136 - 145 mmol/L 04/10/2024 7:15 AM [facility] Potassium 2.7(L) 3.5 - 4.5 mmol/L 04/10/2024 7:15 AM [facility] Chloride 98 98 - 107 mmol/L 04/10/2024 7:15 AM [facility] CO2 25 22 - 29 mmol/L 04/10/2024 7:15 AM [facility] Glucose 132(H) 70 - 99 mg/dL 04/10/2024 7:15 AM [facility] Albumin 2.1(L) 3.4 - 5.0 g/dL 04/10/2024 7:15 AM [facility] Calcium 7.7(L) 8.4 - 10.2 mg/dL 04/10/2024 7:15 AM [facility] Phosphorus 3.1 2.8 - 5.1 mg/dL 04/10/2024 7:15 AM [facility] Anion Gap 12 6 - 16 04/10/2024 7:15 AM [facility] BUN/Creatinine Ratio 10 7 - 23 04/10/2024 7:15 AM [facility] Osmolality Calculated 279 275 - 295 mOsm/kg 04/10/2024 7:15 AM [facility] eGFR by CKD-EPI >90 >=90 mL/min/1.7 3 m2 04/10/2024 7:15 AM [facility] Blood BLOOD SPECIMEN / Unknown Lab Venipuncture / Unknown 04/10/2024 6:15 AM [facility] 04/10/2024 6:46 AM [facility] Bruce Cullen III, MD LAB - CHEMISTRY ORDERABLES [facility] [address] [place] [address], [facility] [phone] * MAGNESIUM BLOOD (04/10/2024 6:15 AM [facility]) Magnesium 1.7 1.6 - 2.6 mg/dL 04/10/2024 7:15 AM [facility] Blood BLOOD SPECIMEN / Unknown Lab Venipuncture / Unknown 04/10/2024 6:15 AM WELL DRILLER 04/10/2024 6:46 AM WELL DRILLER Bruce Cullen III, MD LAB - CHEMISTRY ORDERABLES [facility] [address] [place] [address], [facility] [phone] * (ABNORMAL) CBC W AUTO DIFFERENTIAL (04/10/2024 6:15 AM WELL DRILLER) WBC 9.4 4.0 - 10.7 x10E9/L 04/10/2024 6:55 AM [facility] RBC Count 4.01(L) 4.30 - 5.80 x10E12/L 04/10/2024 6:55 AM [facility] Hemoglobin 12.0(L) 13.3 - 17.5 g/dL 04/10/2024 6:55 AM [facility] Hematocrit 33.5(L) 38.7 - 51.1 % 04/10/2024 6:55 AM [facility] MCV 83.5 80.0 - 98.0 fL 04/10/2024 6:55 AM [facility] MCH 29.9 26.7 - 33.6 pg 04/10/2024 6:55 AM [facility] MCHC 35.8 31.7 - 36.3 g/dL 04/10/2024 6:55 AM [facility] RDW-CV 12.1 11.3 - 14.8 % 04/10/2024 6:55 AM [facility] Platelet Count 336 150 - 420 x10E9/L 04/10/2024 6:55 AM [facility] MPV 8.9 7.8 - 11.4 fL 04/10/2024 6:55 AM [facility] Preliminary Absolute Neutrophil 6.64 1.60 - 7.50 x10E9/L 04/10/2024 6:55 AM [facility] Neutrophil % 70.5 41.0 - 74.0 % 04/10/2024 6:55 AM [facility] Lymphocyte % 13.0(L) 17.0 - 47.0 % 04/10/2024 6:55 AM [facility] Monocyte % 7.7 3.0 - 11.0 % 04/10/2024 6:55 AM [facility] Eosinophil % 3.1 0.0 - 7.0 % 04/10/2024 6:55 AM [facility] Basophil % 1.3 0.0 - 1.6 % 04/10/2024 6:55 AM [facility] Immature Granulocytes % 4.4(H) 0.0 - 1.0 % 04/10/2024 6:55 AM [facility] Neutrophil Absolute 6.64 1.60 - 7.50 x10E9/L 04/10/2024 6:55 AM [facility] Lymphocyte Absolute 1.22 1.00 - 4.40 x10E9/L 04/10/2024 6:55 AM [facility] Monocyte Absolute 0.72 0.15 - 1.00 x10E9/L 04/10/2024 6:55 AM [facility] Eosinophil Absolute 0.29 0.00 - 0.60 x10E9/L 04/10/2024 6:55 AM [facility] Basophil Absolute 0.12 0.00 - 0.13 x10E9/L 04/10/2024 6:55 AM [facility] Blood BLOOD SPECIMEN / Unknown Lab Venipuncture / Unknown 04/10/2024 6:15 AM WELL DRILLER 04/10/2024 6:46 AM [facility] Burce Cullen III, MD LAB - HEMATOLOG Y ORDERABLES [facility] [address] [place] [address], [facility] [phone] * (ABNORMAL) GLUCOSE - POINT OF CARE (04/10/2024 3:33 AM [facility]) Glucose WB/POC 155(H) 70 - 99 mg/dL 04/10/2024 5:08 AM [facility] Specimen Type Cap Fingerstick 2024 5:08 AM [facility] Blood BLOOD SPECIMEN / Unknown 04/10/2024 3:33 AM WELL DRILLER 04/10/2024 5:08 AM WELL DRILLER Fadiaylin Arita LAB - POINT OF CARE ORDERABLES [facility] [address] [place] [address], [place] [phone] * (ABNORMAL) GLUCOSE - POINT OF CARE (04/10/2024 12:03 AM WELL DRILLER) Glucose WB/POC 144(H) 70 - 99 mg/dL 04/10/2024 5:08 AM WELL DRILLER [facility] Specimen Type Cap Fingerstick 2024 5:08 AM WELL DRILLER [facility] Blood BLOOD SPECIMEN / Unknown 04/10/2024 12:03 AM WELL DRILLER 04/10/2024 5:08 AM WELL DRILLER Fadi C Juan J WILLIAMSON LAB - POINT OF CARE ORDERABLES Performing Organization Address City/[facility]/ZIP Co de Phone Number [address] [address], [place] [phone] * (ABNORMAL) GLUCOSE - POINT OF CARE (04/09/2024 8:49 PM WELL DRILLER) Glucose WB/POC 145(H) 70 - 99 mg/dL 04/09/2024 10:21 PM WELL DRILLER [facility] Specimen Type Cap Fingerstick 2024 10:21 PM WELL DRILLER [facility] Blood BLOOD SPECIMEN / Unknown 04/09/2024 8:49 PM WELL DRILLER 04/09/2024 10:21 PM WELL DRILLER Fadi Arita DO LAB - POINT OF CARE ORDERABLES [address] [address], [place] [phone] * (ABNORMAL) GLUCOSE - POINT OF CARE (04/09/2024 5:20 PM WELL DRILLER) Glucose WB/POC 164(H) 70 - 99 mg/dL 04/09/2024 5:31 PM WELL DRILLER [facility] Specimen Type Venous 04/09/2024 5:31 PM WELL DRILLER [facility] Blood BLOOD SPECIMEN / Unknown 04/09/2024 5:20 PM WELL DRILLER 04/09/2024 5:31 PM WELL DRILLER Fadi Arita DO LAB - POINT OF CARE ORDERABLES [facility] [address] [place] [address], [facility] [phone] * XR Hip Right 2Vw or More (04/09/2024 1:29 PM WELL DRILLER) Anatomical Region Laterality Modality Pelvis, Lower Extremity Digital Radiography 04/10/2024 2:03 AM WELL DRILLER Impressions 04/10/2024 2:03 AM WELL DRILLER IMPRESSION: There is a right hip 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 There is no periprosthetic fracture or osteolysis. > Interpreting Provider: Brock Moody MD on 04/10/2024 2:03 AM Narrative 04/10/2024 2:03 AM WELL DRILLER PROCEDURE: ??XR HIP RIGHT 2VW OR MORE [...] - POINT OF CARE (04/09/2024 12:18 PM WELL DRILLER) Glucose WB/POC 178(H) 70 - 99 mg/dL 04/09/2024 5:31 PM [facility] Specimen Type Venous 04/09/2024 5:31 PM [facility] Blood BLOOD SPECIMEN / Unknown 04/09/2024 12:18 PM WELL DRILLER 04/09/2024 5:31 PM WELL DRILLER Fadiaylin Monacoer LAB - POINT OF CARE ORDERABLES [facility] [address] [place] [address], [place] [phone] * (ABNORMAL) GLUCOSE - POINT OF CARE (04/09/2024 8:47 AM WELL DRILLER) Glucose WB/POC 146(H) 70 - 99 mg/dL 04/09/2024 12:06 PM [facility] Specimen Type Venous 04/09/2024 12:06 PM [facility] Blood BLOOD SPECIMEN / Unknown 04/09/2024 8:47 AM WELL DRILLER 04/09/2024 12:06 PM WELL DRILLER Fadi Arita LAB - POINT OF CARE ORDERABLES [address] [address], [place] [phone] * (ABNORMAL) RENAL FUNCTION PANEL (04/09/2024 5:56 AM WELL DRILLER) BUN 7 7 - 26 mg/dL 04/09/2024 7:05 AM [facility] Creatinine 0.63(L) 0.71 - 1.16 mg/dL 04/09/2024 7:05 AM [facility] Sodium 135(L) 136 - 145 mmol/L 04/09/2024 7:05 AM [facility] Potassium 2.6(L) 3.5 - 4.5 mmol/L 04/09/2024 7:05 AM [facility] Chloride 98 98 - 107 mmol/L 04/09/2024 7:05 AM [facility] CO2 26 22 - 29 mmol/L 04/09/2024 7:05 AM [facility] Glucose 127(H) 70 - 99 mg/dL 04/09/2024 7:05 AM [facility] Albumin 1.9(L) 3.4 - 5.0 g/dL 04/09/2024 7:05 AM [facility] Calcium 7.5(L) 8.4 - 10.2 mg/dL 04/09/2024 7:05 AM [facility] Phosphorus 3.3 2.8 - 5.1 mg/dL 04/09/2024 7:05 AM [facility] Anion Gap 11 6 - 16 04/09/2024 7:05 AM [facility] BUN/Creatinine Ratio 11 7 - 23 04/09/2024 7:05 AM [facility] Osmolality Calculated 280 275 - 295 mOsm/kg 04/09/2024 7:05 AM [facility] eGFR by CKD-EPI >90 >=90 mL/min/1.7 3 m2 04/09/2024 7:05 AM [facility] Blood BLOOD SPECIMEN / Unknown Lab Venipuncture / Unknown 04/09/2024 5:56 AM WELL DRILLER 04/09/2024 6:30 AM WELL DRILLER Bruce Cullen III, MD LAB - CHEMISTRY ORDERABLES Performing Organization Address City/State/[facility] Co de Phone Number [facility] [address] [place] [phone] [phone] * MAGNESIUM BLOOD (04/09/2024 5:56 AM WELL DRILLER) Magnesium 1.8 1.6 - 2.6 mg/dL 04/09/2024 7:05 AM [facility] Blood BLOOD SPECIMEN / Unknown Lab Venipuncture / Unknown 04/09/2024 5:56 AM WELL DRILLER 04/09/2024 6:30 AM WELL DRILLER Bruce Cullen III, MD LAB - CHEMISTRY ORDERABLES [facility] [address] [place] [address], [facility] [phone] * (ABNORMAL) CBC W AUTO DIFFERENTIAL (04/09/2024 5:56 AM [facility]) WBC 10.9(H) 4.0 - 10.7 x10E9/L 04/09/2024 6:52 AM [facility] RBC Count 3.76(L) 4.30 - 5.80 x10E12/L 04/09/2024 6:52 AM [facility] Hemoglobin 11.4(L) 13.3 - 17.5 g/dL 04/09/2024 6:52 AM [facility] Hematocrit 31.4(L) 38.7 - 51.1 % 04/09/2024 6:52 AM [facility] MCV 83.5 80.0 - 98.0 fL 04/09/2024 6:52 AM [facility] MCH 30.3 26.7 - 33.6 pg 04/09/2024 6:52 AM [facility] MCHC 36.3 31.7 - 36.3 g/dL 04/09/2024 6:52 AM [facility] RDW-CV 12.1 11.3 - 14.8 % 04/09/2024 6:52 AM [facility] Platelet Count 293 150 - 420 x10E9/L 04/09/2024 6:52 AM [facility] MPV 9.1 7.8 - 11.4 fL 04/09/2024 6:52 AM [facility] Preliminary Absolute Neutrophil 8.14(H) 1.60 - 7.50 x10E9/L 04/09/2024 6:52 AM [facility] Neutrophil % 75.1(H) 41.0 - 74.0 % 04/09/2024 6:52 AM [facility] Lymphocyte % 9.3(L) 17.0 - 47.0 % 04/09/2024 6:52 AM [facility] Monocyte % 7.9 3.0 - 11.0 % 04/09/2024 6:52 AM [facility] Eosinophil % 3.2 0.0 - 7.0 % 04/09/2024 6:52 AM [facility] Basophil % 0.8 0.0 - 1.6 % 04/09/2024 6:52 AM [facility] Immature Granulocytes % 3.7(H) 0.0 - 1.0 % 04/09/2024 6:52 AM [facility] Neutrophil Absolute 8.14(H) 1.60 - 7.50 x10E9/L 04/09/2024 6:52 AM [facility] Lymphocyte Absolute 1.01 1.00 - 4.40 x10E9/L 04/09/2024 6:52 AM [facility] Monocyte Absolute 0.86 0.15 - 1.00 x10E9/L 04/09/2024 6:52 AM [facility] Eosinophil Absolute 0.35 0.00 - 0.60 x10E9/L 04/09/2024 6:52 AM [facility] Basophil Absolute 0.09 0.00 - 0.13 x10E9/L 04/09/2024 6:52 AM [facility] Blood BLOOD SPECIMEN / Unknown Lab Venipuncture / Unknown 04/09/2024 5:56 AM WE[facility]RILLER 04/09/2024 6:30 AM [facility] Bruce Cullen III, MD LAB - HEMATOLOG Y ORDERABLES Performing Organization Address [facility]/State/[facility] Co de Phone Number [facility] [address] [place] [phone], [facility] [phone] * (ABNORMAL) GLUCOSE - POINT OF CARE (04/09/2024 4:15 AM WE[facility]RILLER) Glucose WB/POC 150(H) 70 - 99 mg/dL 04/09/2024 4:20 AM [facility] Specimen Type Cap Fingerstick 2024 4:20 AM [facility] Blood BLOOD SPECIMEN / Unknown 04/09/2024 4:15 AM WE[facility] DRILLER 04/09/2024 4:20 AM WELL DRILLER Fadi Arita DO LAB - POINT OF CARE ORDERABLES [facility] [address] [place] [address], [place] [phone] * (ABNORMAL) GLUCOSE - POINT OF CARE (04/09/2024 12:09 AM WE[facility] DRILLER) Glucose WB/POC 142(H) 70 - 99 mg/dL 04/09/2024 4:20 AM WELL DRILLER [facility] Specimen Type Cap Fingerstick 2024 4:20 AM WELL DRILLER [facility] Blood BLOOD SPECIMEN / Unknown 04/09/2024 12:09 AM WELL DRILLER 04/09/2024 4:20 AM WELL DRILLER Fadi Arita LAB - POINT OF CARE ORDERABLES Performing Organization Address City/[facility]/ZIP Co de Phone Number [address] [address], [place] [phone] * (ABNORMAL) GLUCOSE - POINT OF CARE (04/08/2024 8:47 PM WELL DRILLER) Glucose WB/POC 135(H) 70 - 99 mg/dL 04/08/2024 9:07 PM WELL DRILLER [facility] Specimen Type Cap Fingerstick 2024 9:07 PM [facility] Blood BLOOD SPECIMEN / Unknown 04/08/2024 8:47 PM WELL DRILLER 04/08/2024 9:07 PM WELL DRILLER Fadi Arita LAB - POINT OF CARE ORDERABLES [address] [address], [place] [phone] * (ABNORMAL) GLUCOSE - POINT OF CARE (04/08/2024 4:56 PM WE[facility] DRILLER) Glucose WB/POC 193(H) 70 - 99 mg/dL 04/08/2024 4:56 PM WELL DRILLER [facility] Specimen Type Cap Fingerstick 2024 4:56 PM WELL DRILLER [facility] Blood BLOOD SPECIMEN / Unknown 04/08/2024 4:56 PM WELL DRILLER 04/08/2024 4:56 PM WE[facility] DRILLER Fadi Arita DO LAB - POINT OF CARE ORDERABLES [address] [address], [place] [phone] * (ABNORMAL) GLUCOSE - POINT OF CARE (04/08/2024 11:19 AM WE[facility]RILLER) Glucose WB/POC 202(H) 70 - 99 mg/dL 04/08/2024 4:54 PM WE[facility] DRILLER [facility] Specimen Type Cap Fingerstick 2024 4:54 PM WELL DRILLER [facility] Blood BLOOD SPECIMEN / Unknown 04/08/2024 11:19 AM [facility] 04/08/2024 4:54 PM [facility] Fadi Arita DO LAB - POINT OF CARE ORDERABLES Performing Organization Address [facility]/ZIP Co de Phone Number [address] [address], [place] [phone] * (ABNORMAL) GLUCOSE - POINT OF CARE (04/08/2024 8:51 AM [facility]) Glucose WB/POC 142(H) 70 - 99 mg/dL 04/09/2024 7:56 AM [facility] Specimen Type Arterial 04/09/2024 7:56 AM [facility] Blood BLOOD SPECIMEN / Unknown 04/08/2024 8:51 AM [facility] 04/09/2024 7:56 AM [facility] Fadi Arita DO LAB - POINT OF CARE ORDERABLES [address] [address], [place] [phone] * (ABNORMAL) RENAL FUNCTION PANEL (04/08/2024 8:02 AM [facility]) BUN 12 7 - 26 mg/dL 04/08/2024 9:26 AM [facility] Creatinine 0.65(L) 0.71 - 1.16 mg/dL 04/08/2024 9:26 AM [facility] Sodium 135(L) 136 - 145 mmol/L 04/08/2024 9:26 AM [facility] Potassium 3.0(L) 3.5 - 4.5 mmol/L 04/08/2024 9:26 AM [facility] Chloride 101 98 - 107 mmol/L 04/08/2024 9:26 AM [facility] CO2 25 22 - 29 mmol/L 04/08/2024 9:26 AM [facility] Glucose 125(H) 70 - 99 mg/dL 04/08/2024 9:26 AM [facility] Albumin 1.9(L) 3.4 - 5.0 g/dL 04/08/2024 9:26 AM [facility] Calcium 7.7(L) 8.4 - 10.2 mg/dL 04/08/2024 9:26 AM [facility] Phosphorus 2.6(L) 2.8 - 5.1 mg/dL 04/08/2024 9:26 AM [facility] Anion Gap 9 6 - 16 04/08/2024 9:26 AM [facility] BUN/Creatinine Ratio 18 7 - 23 04/08/2024 9:26 AM [facility] Osmolality Calculated 281 275 - 295 mOsm/kg 04/08/2024 9:26 AM [facility] eGFR by CKD-EPI >90 >=90 mL/min/1.7 3 m2 04/08/2024 9:26 AM [facility] Blood BLOOD SPECIMEN / Unknown Lab Venipuncture / Unknown 04/08/2024 8:02 AM [facility] 04/08/2024 8:41 AM [facility] Bruce Cullen III, MD LAB - CHEMISTRY ORDERABLES [facility] [address] [place] [address], [facility] [phone] * (ABNORMAL) HEMOGLOBIN A1C (04/08/2024 8:02 AM [facility]) Hemoglobin A1c 9.4(H) <=5.6 % 04/08/2024 1:21 PM [facility] Estimated Average Glucose 223 mg/dL 04/08/2024 1:21 PM [facility] Comment: HbA1c Interpretation: Normal : < 5.7% Pre-diabetes: 5.7-6.4% Diabetes: Equal to or greater than 6.5% Test results diagnostic of diabetes should be repeated for confirmation. Treatment target values recommended by ADA and other clinical organizations should be used to evaluate metabolic control in patients. Reference: [place] [employer], Standards of Care in Diabetes -2020 In patients 70 years and older consider HbA1c target range of 7.0-7.5% (Reference: Sarwat Rodrigues et al. JAMDA. 2012) The [employer] assay for the measurement of HbA1c is a National Glycohemoglobin Standardization Program (NGSP) certified method. Blood BLOOD SPECIMEN / Unknown Lab Venipuncture / Unknown 04/08/2024 8:02 AM [facility] 04/08/2024 8:40 AM [facility] Bruce Cullen III, MD LAB - CHEMISTRY ORDERABLES [address] [address], [facility] [phone] * TSH REFLEX FREE T4 (04/08/2024 8:02 AM [facility]) Pathologist [facility] TSH 2.481 0.350 - 4.940 uIU/mL 04/08/2024 9:26 AM [facility] Blood BLOOD SPECIMEN / Unknown Lab Venipuncture / Unknown 04/08/2024 8:02 AM [facility] 04/08/2024 8:41 AM [facility] Bruce Cullen III, MD LAB - CHEMISTRY ORDERABLES [address] [address], [place] [phone] * MAGNESIUM BLOOD (04/08/2024 8:02 AM [facility]) Pathologist [facility] Magnesium 1.8 1.6 - 2.6 mg/dL 04/08/2024 9:26 AM [facility] Blood BLOOD SPECIMEN / Unknown Lab Venipuncture / Unknown 04/08/2024 8:02 AM [facility] 04/08/2024 8:41 AM [facility] Bruce Cullen III, MD LAB - CHEMISTRY ORDERABLES Performing Organization Address City/[facility] Co de Phone Number [facility] [address] [place] [address], [facility] [phone] * (ABNORMAL) CBC W AUTO DIFFERENTIAL (04/08/2024 8:02 AM [facility]) [place] [facility] WBC 12.2(H) 4.0 - 10.7 x10E9/L 04/08/2024 9:08 AM [facility] RBC Count 3.61(L) 4.30 - 5.80 x10E12/L 04/08/2024 9:08 AM [facility] Hemoglobin 10.9(L) 13.3 - 17.5 g/dL 04/08/2024 9:08 AM [facility] Hematocrit 30.7(L) 38.7 - 51.1 % 04/08/2024 9:08 AM [facility] MCV 85.0 80.0 - 98.0 fL 04/08/2024 9:08 AM [facility] MCH 30.2 26.7 - 33.6 pg 04/08/2024 9:08 AM [facility] MCHC 35.5 31.7 - 36.3 g/dL 04/08/2024 9:08 AM [facility] RDW-CV 12.2 11.3 - 14.8 % 04/08/2024 9:08 AM [facility] Platelet Count 283 150 - 420 x10E9/L 04/08/2024 9:08 AM [facility] MPV 9.5 7.8 - 11.4 fL 04/08/2024 9:08 AM [facility] Preliminary Absolute Neutrophil 9.71(H) 1.60 - 7.50 x10E9/L 04/08/2024 9:08 AM [facility] Neutrophil % 79.6(H) 41.0 - 74.0 % 04/08/2024 9:08 AM [facility] Lymphocyte % 7.9(L) 17.0 - 47.0 % 04/08/2024 9:08 AM [facility] Monocyte % 6.2 3.0 - 11.0 % 04/08/2024 9:08 AM [facility] Eosinophil % 3.0 0.0 - 7.0 % 04/08/2024 9:08 AM [facility] Basophil % 0.6 0.0 - 1.6 % 04/08/2024 9:08 AM [facility] Immature Granulocytes % 2.7(H) 0.0 - 1.0 % 04/08/2024 9:08 AM [facility] Neutrophil Absolute 9.71(H) 1.60 - 7.50 x10E9/L 04/08/2024 9:08 AM [facility] Lymphocyte Absolute 0.96(L) 1.00 - 4.40 x10E9/L 04/08/2024 9:08 AM [facility] Monocyte Absolute 0.76 0.15 - 1.00 x10E9/L 04/08/2024 9:08 AM [facility] Eosinophil Absolute 0.36 0.00 - 0.60 x10E9/L 04/08/2024 9:08 AM [facility] Basophil Absolute 0.07 0.00 - 0.13 x10E9/L 04/08/2024 9:08 AM [facility] Blood BLOOD SPECIMEN / Unknown Lab Venipuncture / Unknown 04/08/2024 8:02 AM [facility] 04/08/2024 8:40 AM [facility] Bruce Cullen III, MD LAB - HEMATOLOG Y ORDERABLES [facility] [address] [place] [address], [facility] [phone] * (ABNORMAL) GLUCOSE - POINT OF CARE (04/08/2024 3:51 AM [facility]ER) Glucose WB/POC 152(H) 70 - 99 mg/dL 04/08/2024 3:53 AM [facility] Specimen Type Cap Fingerstick 2024 3:53 AM [facility] Blood BLOOD SPECIMEN / Unknown 04/08/2024 3:51 AM [facility] 04/08/2024 3:53 AM [facility] - [facility]ARE ORDERABLES [facility] [address] [place] [address], [place] [phone] * (ABNORMAL) GLUCOSE - POINT OF CARE (04/07/2024 11:55 PM [facility]) Glucose WB/POC 170(H) 70 - 99 mg/dL 04/07/2024 11:56 PM [facility] Specimen Type Cap Fingerstick 2024 11:56 PM [facility] Blood BLOOD SPECIMEN / Unknown 04/07/2024 11:55 PM [facility]ER 04/07/2024 11:56 PM [facility]ER Emanuel [facility] LAB - POINT OF CARE ORDERABLES Performing Organization Address City/[facility]/ZIP Co de Phone Number [facility] [address] [place] [phone], [place] [phone] * (ABNORMAL) URINALYSIS REFLEX TO MICROSCOPIC NO CULTURE (04/07/2024 11:18 PM [facility]) Color UA Jennifer(A) Straw, Yellow 04/07/2024 11:38 PM [facility] Clarity UA Slt Cloudy(A) Clear 04/07/2024 11:38 PM [facility] Specific [place] UA 1.040(H) 1.005 - 1.030 04/07/2024 11:38 PM [facility] pH UA 5.0 5.0 - 8.0 pH 04/07/2024 11:38 PM [facility] Protein UA 1+(A) Negative 04/07/2024 11:38 PM [facility] Glucose UA 1+(A) Negative 04/07/2024 11:38 PM [facility] Ketone UA 2+(A) Negative 04/07/2024 11:38 PM [facility] Bilirubin UA Negative Negative 04/07/2024 11:38 PM [facility] Blood UA 1+(A) Negative 04/07/2024 11:38 PM [facility] Nitrite UA Negative Negative 04/07/2024 11:38 PM [facility] Leukocyte Esterase Negative Negative 04/07/2024 11:38 PM [facility] Urobilinogen UA 4.0(A) Negative mg/dL 04/07/2024 11:38 PM [facility] RBC UA 11-20(A) None Seen, 0-2, 3-5 /HPF 04/07/2024 11:38 PM [facility] WBC UA 0-5 None Seen, 0-5 /HPF 04/07/2024 11:38 PM [facility] Squamous Epithelial Cells UA 0-2 None Seen, 0-2, 3-5 /HPF 04/07/2024 11:38 PM [facility] Mucus UA 2+ /LPF 04/07/2024 11:38 PM [facility] Urine URINE SPECIMEN OBTAINED VIA INDWELLING URINARY CATHETER / Unknown Collection / Unknown 04/07/2024 11:18 PM [facility] 04/07/2024 11:23 PM [facility] - 04/07/2024 11:38 PM [facility] Emanuel Dempsey DO LAB - URINALYSIS ORD ERABLES [facility] [address] [place] [phone], [facility] [phone] * CULTURE URINE (04/07/2024 11:18 PM [facility]ER) Culture Urine No growth (<100 CFU/mL) ANTONIO 04/09/2024 6:12 AM [facility]CRO[facility] Urine URINE SPECIMEN OBTAINED VIA INDWELLING URINARY CATHETER / Unknown Collection / Unknown 04/07/2024 11:18 PM [facility]ER 04/07/2024 11:23 PM [facility] Emanuel Dempsey DO LAB - MICROBIOLOGY O ALESSIO [facility] MICRO[facility] [address] [place] [address], [facility] [phone] * HELICOBACTER PYLORI ANTIGEN FECES (04/07/2024 11:18 PM [facility]RILLER) Helicobacter pylori Antigen Stool Negative Negative 04/09/2024 11:12 PM [facility]RILLER [employer]app[employer] ([facility]) Comment: Performed By: [facility] [address] [place] [address] Radiologic Technologist: Vern Montiel MD, PhD CLIA Number: [id number] Stool STOOL SPECIMEN / Unknown Collection / Unknown 04/07/2024 11:18 PM [facility]ER 04/07/2024 11:22 PM [facility] Emanuel Dempsey DO LAB - MICROBIOLOGY O ALESSIO Performing Organization Address City/[facility] Co de Phone Number Kii ([facility]) [address] [place], [place] [address] * (ABNORMAL) GLUCOSE - POINT OF CARE (04/07/2024 7:15 PM [facility]LLER) Pathologist [facility] Glucose WB/POC 174(H) 70 - 99 mg/dL 04/07/2024 7:16 PM [facility] Specimen Type Cap Fingerstick 2024 7:16 PM [facility] Blood BLOOD SPECIMEN / Unknown 04/07/2024 7:15 PM [facility] 04/07/2024 7:16 PM [facility] Emanuel Reddy[facility] LAB - POINT OF CARE ORDERABLES [facility] [address] [place] [address], [place] [phone] * (ABNORMAL) URINE MICROSCOPIC ONLY REFLEX TO CULTURE (04/07/2024 5:46 PM [facility]ER) Reflex Status Culture not indicated 04/07/2024 6:08 PM [facility] RBC UA 21-50(A) None Seen, 0-2, 3-5 /HPF 04/07/2024 6:08 PM [facility] WBC UA 6-10(A) None Seen, 0-5 /HPF 04/07/2024 6:08 PM [facility] Bacteria UA 1+(A) None /HPF 04/07/2024 6:08 PM [facility] Squamous Epithelial Cells UA 0-2 None Seen, 0-2, 3-5 /HPF 04/07/2024 6:08 PM [facility] Mucus UA 1+ /LPF 04/07/2024 6:08 PM [facility] Amorphous Crystals Rare(A) None /HPF 04/07/2024 6:08 PM [facility] Urine URINE SPECIMEN OBTAINED VIA INDWELLING URINARY CATHETER / Unknown Collection / Unknown 04/07/2024 5:46 PM [facility]ER 04/07/2024 5:55 PM [facility]RILLER Narrative [facility] - 04/07/2024 6:08 PM [facility]LLER Jamaal White DO LAB - URINALYSIS ORD ERABLES [facility] [address] [place] [address], [facility] [phone] * (ABNORMAL) URINALYSIS REFLEX MICROSCOPIC REFLEX CULTURE (04/07/2024 5:46 PM [facility]LLER) Color UA Jennifer(A) Straw, Yellow 04/07/2024 6:09 PM [facility] Clarity UA Slt Cloudy(A) Clear 04/07/2024 6:09 PM [facility] Specific [place] UA >1.060(H) 1.005 - 1.030 04/07/2024 6:09 PM [facility] Comment:Specific gravity res ults confirmed by refractometer. pH UA 5.0 5.0 - 8.0 pH 04/07/2024 6:09 PM [facility] Protein UA 2+(A) Negative 04/07/2024 6:09 PM [facility] Glucose UA 1+(A) Negative 04/07/2024 6:09 PM [facility] Ketone UA 1+(A) Negative 04/07/2024 6:09 PM [facility] Bilirubin UA Negative Negative 04/07/2024 6:09 PM [facility] Blood UA 1+(A) Negative 04/07/2024 6:09 PM [facility] Nitrite UA Negative Negative 04/07/2024 6:09 PM [facility] Leukocyte Esterase Negative Negative 04/07/2024 6:09 PM [facility] Urobilinogen UA 4.0(A) Negative mg/dL 04/07/2024 6:09 PM [facility] Urine URINE SPECIMEN OBTAINED VIA INDWELLING URINARY CATHETER / Unknown Collection / Unknown 04/07/2024 5:46 PM [facility]ER 04/07/2024 5:55 PM [facility]RILLER Narrative [facility] - 04/07/2024 6:09 PM [facility]RILLER Jamaal White DO LAB - URINALYSIS ORD ERABLES Performing Organization Address City/State/[facility] Co de Phone Number [facility] [address] [place] [phone], [facility] [phone] * EGD (04/07/2024 2:55 PM WE[facility] DRILLER) Report Endoscopy POC Endoscopy Department Report _ [...] Procedure Code(s): ? --- Professional --- ? 32365, Esophagogastroduod enoscopy, flexible, transoral; diagnostic, ? including collection of specimen(s) by brushing or washing, when ? performed (separate procedure) Diagnosis Code(s): ?--- Professional --- ?K31.89, Other diseases of stomach and duodenum ?K25.9, Gastric ulcer, unspecified as acute or ?chronic, without hemorrhage or perforation ?K20.90, Esophagitis, unspecified without bleeding ?R93.3, Abnormal findings on diagnostic imaging of ?other parts of digestive tract CPT copyright 2022 [employer]. All rights reserved. The codes documented in this report are preliminary and upon bushing and broach operator review may be revised to meet current compliance requirements. Erasto Zimmerman Carlitos, 04/07/2024 3:31:30 PM Note Initiated On: 04/07/2024 2:55 PM Number of Addenda: 0 ? [facility] ? [address] [place] [address] [facility] 04/07/2024 2:55 PM [facility]LLER Emanuel Dempsey DO GI PROCEDURE ORDERAB LES Performing Organization Address City/[facility]/ZIP Co de Phone Number [facility] * (ABNORMAL) GLUCOSE - POINT OF CARE (04/07/2024 2:48 PM WE[facility]RILLER) Glucose WB/POC 166(H) 70 - 99 mg/dL 04/07/2024 3:55 PM [facility] Specimen Type Cap Fingerstick 2024 3:55 PM [facility] Blood BLOOD SPECIMEN / Unknown 04/07/2024 2:48 PM [facility]ER 04/07/2024 3:55 PM [facility]ER Emanuel Dempsey DO LAB - POINT OF CARE ORDERABLES Performing Organization Address City/[facility]/ZIP Co de Phone Number [facility] [address] [place] [address], [facility] [phone] * CT Angio Chest Abdomen Pelvis (04/07/2024 10:13 AM [facility]LLER) Anatomical Region Laterality Modality Chest, Abdomen, Pelvis Computed Tomography 04/07/2024 10:3 5 AM [facility] Impressions 04/07/2024 11:33 AM [facility] Impression: 1.The stomach is distended with air [...] mm. > Dictated by Karthikeyan Barreto MD, (president/gm production & live experiences). I, Tara Souza MD have personally reviewed and interpreted this examination/study. > Interpreting Provider: Tara Souza MD on 04/07/2024 11:33 AM Narrative 04/07/2024 11:33 AM [facility] PROCEDURE: ??CT ANGIO CHEST ABDOMEN PELVIS, DATE/TIME OF EXAM: ??04/07/2024 10:13 AM, LOCATION ??[facility] INDICATION: R10.84: Abdominal pain, generalized ADDITIONAL [...] DATE/TIME OF EXAM: 04/07/2024 10:13 AM, LOCATION [facility] INDICATION: R10.84: Abdominal pain, generalized ADDITIONAL [...] mm. > Dictated by Karthikeyan Barreto MD, (president/gm production & live experiences). I, Tara Souza MD have personally reviewed and interpreted this examination/study. > Interpreting Provider: Tara Souza MD on 04/07/2024 11:33 AM Rachel Jay MD CT ORDERABLES * (ABNORMAL) CK BLOOD (04/07/2024 5:36 AM WE[facility]RILLER) CK Total 25(L) 30 - 200 U/L 04/07/2024 7:02 AM [facility] Blood BLOOD SPECIMEN / Unknown Venipuncture / Unknown 04/07/2024 5:36 AM [facility]LLER 04/07/2024 6:31 AM [facility]RILLER Jamaal White DO LAB - CHEMISTRY ORDE SWETHA [facility] [address] [place] [address], [place] [phone] * (ABNORMAL) PT-INR [facility] (04/07/2024 5:36 AM WE[facility] DRILLER) PT 17.1(H) 12.1 - 14.8 Seconds 04/07/2024 6:56 AM [facility]ER [facility] INR 1.4 See Comment 04/07/2024 6:56 AM [facility]LLER [facility] Comment:The suggested therap eutic range for standard coumadin (warfarin) therapy is an INR of 2.0-3.0. For high-risk patients (Mechanical Mitral Valve Prosthesis, etc.), the suggested prophylactic therapeutic range is an INR of 2.5-3.5. Blood BLOOD SPECIMEN / Unknown Venipuncture / Unknown 04/07/2024 5:36 AM [facility]RILLER 04/07/2024 6:31 AM [facility]ER Jamaal White DO LAB - COAGULATION OR DERABLES Performing Organization Address [facility]/ZIP Co de Phone Number [facility] [address] [place] [address], [place] [phone] * (ABNORMAL) LIPASE BLOOD (04/07/2024 5:36 AM WE[facility]RILLER) Lipase 4(L) 8 - 78 U/L 04/07/2024 7:02 AM [facility]RILLER [facility] Blood BLOOD SPECIMEN / Unknown Venipuncture / Unknown 04/07/2024 5:36 AM WE[facility] DRILLER 04/07/2024 6:31 AM [facility]RILLER Narrative [facility] - 04/07/2024 7:02 AM WE[facility]RILLER Lipase results from the [employer] Al[employer] analyzer may not be comparable with other methodologies. Jamaal White DO LAB - CHEMISTRY ROBERTO POSADA [facility] [address] [place] [address], [place] [phone] * LACTIC ACID BLOOD REFLEX TO REPEAT (04/07/2024 5:36 AM WELL DRILLER) [facility] Lactic Acid-Stat 0.8 <=2.0 mmol/L 04/07/2024 7:00 AM [facility] Blood BLOOD SPECIMEN / Unknown Venipuncture / Unknown 04/07/2024 5:36 AM [facility]RILLER 04/07/2024 6:31 AM [facility]RILLER Jamaal White DO LAB - CHEMISTRY ROBERTO POSADA Performing Organization Address City/State/[facility] Co de Phone Number [facility] [address] [place] [phone], [facility] [phone] * (ABNORMAL) COMPREHENSIVE METABOLIC PANEL (04/07/2024 5:36 AM [facility]) [facility] BUN 17 7 - 26 mg/dL 04/07/2024 7:02 AM [facility] Creatinine 0.65(L) 0.71 - 1.16 mg/dL 04/07/2024 7:02 AM [facility] Sodium 134(L) 136 - 145 mmol/L 04/07/2024 7:02 AM [facility] Potassium 4.5 3.5 - 4.5 mmol/L 04/07/2024 7:02 AM [facility] Chloride 103 98 - 107 mmol/L 04/07/2024 7:02 AM [facility] CO2 23 22 - 29 mmol/L 04/07/2024 7:02 AM [facility] Glucose 193(H) 70 - 99 mg/dL 04/07/2024 7:02 AM [facility] Calcium 8.1(L) 8.4 - 10.2 mg/dL 04/07/2024 7:02 AM [facility] Protein Total 5.2(L) 6.0 - 8.3 g/dL 04/07/2024 7:02 AM [facility] Albumin 2.1(L) 3.4 - 5.0 g/dL 04/07/2024 7:02 AM [facility] Bilirubin Total 0.7 0.2 - 1.2 mg/dL 04/07/2024 7:02 AM [facility] Alkaline Phosphatase 58 40 - 150 U/L 04/07/2024 7:02 AM [facility] ALT 11 5 - 55 U/L 04/07/2024 7:02 AM [facility] AST 13 5 - 34 U/L 04/07/2024 7:02 AM [facility] Anion Gap 8 6 - 16 04/07/2024 7:02 AM [facility] BUN/Creatinine Ratio 26(H) 7 - 23 04/07/2024 7:02 AM [facility] Osmolality Calculated 285 275 - 295 mOsm/kg 04/07/2024 7:02 AM [facility] Albumin/Globulin Ratio 0.7(L) 1.1 - 2.3 04/07/2024 7:02 AM [facility] eGFR by CKD-EPI >90 >=90 mL/min/1.7 3 m2 04/07/2024 7:02 AM [facility] Blood BLOOD SPECIMEN / Unknown Venipuncture / Unknown 04/07/2024 5:36 AM [facility]LLER 04/07/2024 6:31 AM [facility] Jamaal White DO LAB - CHEMISTRY ORDE SWETHA [address] [address], [facility] [phone] * (ABNORMAL) CBC W AUTO DIFFERENTIAL (04/07/2024 5:36 AM [facility]) WBC 18.7(H) 4.0 - 10.7 x10E9/L 04/07/2024 6:42 AM [facility] RBC Count 3.83(L) 4.30 - 5.80 x10E12/L 04/07/2024 6:42 AM [facility] Hemoglobin 11.6(L) 13.3 - 17.5 g/dL 04/07/2024 6:42 AM [facility] Hematocrit 32.0(L) 38.7 - 51.1 % 04/07/2024 6:42 AM [facility] MCV 83.6 80.0 - 98.0 fL 04/07/2024 6:42 AM [facility] MCH 30.3 26.7 - 33.6 pg 04/07/2024 6:42 AM [facility] MCHC 36.3 31.7 - 36.3 g/dL 04/07/2024 6:42 AM [facility] RDW-CV 12.5 11.3 - 14.8 % 04/07/2024 6:42 AM [facility] Platelet Count 307 150 - 420 x10E9/L 04/07/2024 6:42 AM [facility] MPV 9.8 7.8 - 11.4 fL 04/07/2024 6:42 AM [facility] Neutrophil % 85.7(H) 41.0 - 74.0 % 04/07/2024 6:42 AM [facility] Lymphocyte % 4.9(L) 17.0 - 47.0 % 04/07/2024 6:42 AM [facility] Monocyte % 5.7 3.0 - 11.0 % 04/07/2024 6:42 AM [facility] Eosinophil % 1.5 0.0 - 7.0 % 04/07/2024 6:42 AM [facility] Basophil % 0.4 0.0 - 1.6 % 04/07/2024 6:42 AM [facility] Immature Granulocytes % 1.8(H) 0.0 - 1.0 % 04/07/2024 6:42 AM [facility] Neutrophil Absolute 16.07(H) 1.60 - 7.50 x10E9/L 04/07/2024 6:42 AM [facility] Lymphocyte Absolute 0.91(L) 1.00 - 4.40 x10E9/L 04/07/2024 6:42 AM [facility] Monocyte Absolute 1.06(H) 0.15 - 1.00 x10E9/L 04/07/2024 6:42 AM [facility] Eosinophil Absolute 0.29 0.00 - 0.60 x10E9/L 04/07/2024 6:42 AM [facility] Basophil Absolute 0.07 0.00 - 0.13 x10E9/L 04/07/2024 6:42 AM [facility] Blood BLOOD SPECIMEN / Unknown Venipuncture / Unknown 04/07/2024 5:36 AM [facility]LLER 04/07/2024 6:31 AM WE[facility]RILLER Jamaal White DO LAB - HEMATOLOGY ORD ERABLES [facility] [address] [place] [address], [facility] [phone] * XR CHEST 1VW PORTABLE (04/07/2024 5:16 AM WELL DRILLER) Anatomical Region Laterality Modality Chest Digital Radiogra phy 04/07/2024 6:04 AM WE[facility] DRILLER Impressions 04/07/2024 9:31 AM WE[facility] DRILLER IMPRESSION: Low lung volumes bilaterally with bronchovascular [...] verification. > Dictated by Pablo Potter DO (Research Statistician), 04/07/2024 6:23 AM. INessa MD have personally reviewed and interpreted this examination/study. > Interpreting Provider: Nessa Hickman MD on 04/07/2024 9:31 AM Narrative 04/07/2024 9:31 AM [facility]LLER PROCEDURE: ??XR CHEST 1VW PORTABLE, DATE/TIME OF EXAM: ??04/07/2024 5:16 AM, LOCATION ??[facility] INDICATION: R10.84: Abdominal pain, generalized ADDITIONAL CLINICAL INFORMATION: Ordering Provider Reason For Exam: ??gastric/esophageal perf suspected COMPARISON: None. Procedure Note Nessa Hickman MD - 04/07/2024 PROCEDURE: XR CHEST 1VW PORTABLE, DATE/TIME OF EXAM: 04/07/2024 5:16AM, LOCATION [facility] INDICATION: R10.84: Abdominal pain, generalized ADDITIONAL [...] verification. > Dictated by Pablo Potter DO (Research Statistician), 04/07/2024 6:23 AM. INessa MD have personally reviewed and interpreted this examination/study. > Interpreting Provider: Nessa Hickman MD on 04/07/2024 9:31 AM Jamaal White DO DIAGNOSTIC IMAGING O RDERABLES documented in this encounter Visit Diagnoses Diagnosis Emphysematous gastritis- Primary Other specified disorder of stomach and duodenum Abdominal pain, generalized Leukocytosis, unspecified type History of total right hip replacement Bradycardia Other specified cardiac dysrhythmias Abdominal pain, generalized Gastric emphysema Other specified disorder of stomach and duodenum Leukocytosis, unspecified type Stercoral colitis Hyponatremia Hyposmolality and/or hyponatremia Hypotension Hypokalemia Hypopotassemia Presence of indwelling Mendoza catheter Hyperglycemia Other abnormal glucose 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 $ Given 04/10/2024 1:31 PM WELL DRILLER 3 mL $ Given 04/09/2024 9:19 PM WELL DRILLER 10 mL $ Given 04/09/2024 2:09 PM WELL DRILLER 3 mL dextrose IV 12.5 g 12.5 [...] same time. $ Given 04/10/2024 1:29 PM WELL DRILLER 2 Units Left Arm $ Given 04/08/2024 5:03 PM WELL DRILLER 2 Units Le ft Arm $ Given 04/08/2024 12:20 PM WELL DRILLER 2 Units A bd Left Lower Quadrant insulin glargine (Lantus) pen 6 Units 6 Units, Subcutaneous, AT BEDTIME, First dose (after last modification) on Sun04/07/24 at 2100, Until Discontinued, Obtain current Blood Glucose if necessary . WASTE DISPOSAL INSTRUCTIONS: Black Bin Disposal required. $ Given 04/09/2024 9:36 PM WELL DRILLER 6 Units Abdominal Tissue $ Given 04/09/2024 12:09 AM WELL DRILLER 6 Units A bdominal Tissue $ Given 04/07/2024 11:42 PM WELL DRILLER 6 Units L eft Arm pantoprazole EC [...] soda, coffee or tea prior to administration Inactive Administered Medications - up to 3 most recent administrations Medication Order MAR Action Action Date Dose Rate Site cefTRIAXone (Rocephin) syringe 2,000 mg 2,000 mg, Intravenous, NOW, 1 dose, On Sun04/07/24 at 0500, Infuse over 3-5 minutes. Mix with 19.2 mL diluent for final concentration 2000 mg/20 mL., Indication for anti-infective therapy: Risk of Infection $ Given 04/07/2024 5:48 AM WELL DRILLER 2,000 mg cefTRIAXone (Rocephin) syringe 2,000 mg 2,000 mg, Intravenous, EVERY 24 HOURS, First dose on Sun04/08/24 at 0300, Until Discontinued, Infuse over 3-5 minutes. Mix with 19.2 mL diluent for final concentration 2000 mg/20 mL., Indication for anti-infective therapy: Risk of Infection $ Given 04/09/2024 4:10 AM WELL DRILLER 2,000 mg $ Given 04/08/2024 2:49 AM WELL DRILLER 2,000 mg iopamidol (Isovue 370) 76 % contrast Intravenous, CONTRAST ONCE, Starting on Sun04/07/24 at 1006, Until Sun04/09/24 at 1005 $ Given - Contrast 04/07/2024 10:06 AM WE[facility] DRILLER 100 mL lactated ringers infusion at 100 mL/hr, Intravenous, CONTINUOUS, Starting on Sun04/07/24 at 1245, Until Sun04/07/24 at 2244 $ New Bag/Syringe 04/07/2024 6:40 PM WE[facility] DRILLER 100 mL/hr metroNIDAZOLE (Flagyl) 500 mg in 100 mL IVPB 500 mg, at 200 mL/hr, Intravenous, EVERY 8 HOURS, First dose on Sun04/07/24 at 1345, Until Discontinued, Controlled Room Temperature, Indication for anti-infective therapy: Risk of Infection $ New Bag/Syringe 04/09/2024 4:22 AM WELL DRILLER 500 mg 200 mL/hr $ New Bag/Syringe 04/08/2024 9:48 PM WE[facility] DRILLER 500 mg 200 mL /hr Rate Change 04/08/2024 2:19 PM WE[facility] DRILLER 5 mL/hr pantoprazole (Protonix) injection 40 mg 40 mg, Intravenous, NOW, 1 dose, On Sun04/07/24 at 0500, For every 40 mg of pantoprazole mix with 10 mL Normal Saline (final concentration = 4 mg/mL). Inject SLOWLY over 2 min. $ Given 04/07/2024 6:11 AM [facility] 40 mg pantoprazole (Protonix) injection 40 mg 40 mg, Intravenous, DAILY, 3 doses, First dose (after last modification) on Sun04/08/24 at 0900, Last dose on Sun04/10/24 at 0900, For every 40 mg of pantoprazole mix with 10 mL Normal Saline (final concentration = 4 mg/mL). Inject SLOWLY over 2 min. $ Given 04/08/2024 8:05 AM [facility] 40 mg pantoprazole (Protonix) injection 40 mg 40 mg, Intravenous, 2 TIMES DAILY, 4 doses, First dose (after last modification) on Sun04/08/24 at 2100, Last dose on Sun04/10/24 at 0900, For every 40 mg of pantoprazole mix with 10 mL Normal Saline (final concentration = 4 mg/mL). Inject SLOWLY over 2 min. $ Given 04/10/2024 8:33 AM [facility] 40 mg $ Given 04/09/2024 9:14 PM [facility]LL[facility] 40 mg $ Given 04/09/2024 9:04 AM [facility] 40 mg potassium chloride 40 mEq in 270 mL bolus 40 mEq, at 67.5 mL/hr, Administer over 4 Hours, Intravenous, ONCE, 1 dose, On Sun04/08/24 at 1100 Rate Change 04/08/2024 10:55 AM [facility] 5 0 mL/hr $ New Bag/Syringe 04/08/2024 10:51 AM [facility] 40 mEq 67.5 mL/hr potassium chloride 40 mEq in 270 mL bolus 40 mEq, at 67.5 mL/hr, Administer over 4 Hours, Intravenous, ONCE, 1 dose, On Sun04/09/24 at 1315 $ New Bag/Syringe 04/09/2024 2:14 PM [facility] 40 mEq 67.5 mL/hr potassium chloride 40 mEq in 270 mL bolus 40 mEq, at 67.5 mL/hr, Administer over 4 Hours, Intravenous, ONCE, 1 dose, On Sun04/10/24 at 1000 $ New Bag/Syringe 04/10/2024 10:28 AM [facility] 40 mEq 67.5 mL/hr potassium chloride ER (Klor-Con M) tablet 40 mEq 40 mEq, Oral, ONCE, 1 dose, On Sun04/10/24 at 0930, Do not crush or chew. $ Given 04/10/2024 10:19 AM [facility] 40 mEq documented in this encounter Active and Recently Administered Medications Times are shown in [facility]. Scheduled Medication Order 04/08/2024 04/09/2024 04/10/2024 0.9% [...] RN)1409 ($ Given - Provider: Dana Buckner, ROYER)2119 ($ Given - Provider: Dede Pruett RN) 0600 (Canceled Entry - Provider: Dede Pruett RN)1331 ($ Given - Provider: Dana Buckner RN)2200 (Due) cefTRIAXone (Rocephin) syringe 2,000 mg (CANCELED)(Linked [...] Provider: Dede Pruett RN)0632 (Stopped - Provider: eDde Pruett RN)1349 ($ New Bag/Syringe - Provider: [...] RN) 0904 ($ Given - Provider: Dana Buckner RN)2114 ($ Given - Provider: Dede Pruett RN) 0833 ($ Given - Provider: Dana Buckner, RN) pantoprazole EC (Protonix) tablet 40 mg 40 [...] 1051 ($ New Bag/Syringe - Provider: Dede Watson RN)1055 (Rate Change - Provider: Dede Watson, ROYER)1455 (Stopped - Provider: Dede Watson RN) potassium chloride 40 mEq in 270 mL bolus (COMPLETED) 40 mEq, at 67.5 mL/hr, Administer over 4 Hours, Intravenous, ONCE, 1 dose, On Sun04/09/24 at 1315 1414 ($ New Bag/Syringe - Provider: Dana Buckner RN)1838 (Stopped - Provider: Dana J Buckner, RN) potassium chloride 40 mEq in 270 mL bolus (COMPLETED) 40 mEq, at 67.5 mL/hr, Administer over 4 Hours, Intravenous, ONCE, 1 dose, On Emma 04/10/24 at 1000 1028 ($ New Bag/Syringe - Provider: Dana Buckner, RN)1439 (Stopped - Provider: Dana Buckner, RN) potassium chloride ER (Klor-Con M) tablet 40 mEq (COMPLETED) 40 mEq, Oral, ONCE, 1 dose, On Emma 04/10/24 at 0930, Do not crush or chew. [...] portion documented in this encounter Care Teams Real Estate Administrator Relationship Specialty Start [place] [id number] [address] [facility] [address] [place] [address] PCP - General Family Medicine 04/07/24 documented as of this encounter
--- OUTSIDE RECORDS SUMMARY | 2024-04-10 17:13 | XMS_ITS | Clinical Summary ---
Author Organization [facility] Address [address] [address] [place] [address] Phone Care Team Providers Care Mechanical Development Engineer Name Role Phone Chuckie Chavira MD, Sebastian Archer Primary Care Provider [phone] Allergies No known active allergies Medications NOVOLOG [...] 0 Active OTHER Compression 20-30 Thigh High [id number] - Right Leg $45.00 [id number]- Left Leg $55.00 2 Each 2 09/02/2020 4:31 PM CDT 1 Active Active Problems Patient Care Coordination No te Formatting of this note migh t be different from the original. Vascular Laboratory Operations Coordinator - Dr. Olayinka Pollack MD, [facility], [facility] - [address] [facility] Dr. Hdez - DPM Dr. Peres - [...] Type I diabetes mellitus with hyperosmolar coma (CMS/HCC) LIPID PANEL Routine 08/30/2019 9:09 AM CDT Type I diabetes mellitus with hyperosmolar coma ([facility]/HCC) from Last 3 Months or Most Recently Relevant to Health Maintenance Results * (ABNORMAL) MICROALBUMIN/CREATININE RATIO, RANDOM UR (08/30/2019 9:10 AM CDT) [facility] MICROALBUMIN, URINE 4.9 mg/dL 08/30/2019 11:50 AM T [facility] CREATININE, URINE 221.0 40.0 - 278.0 mg/dL 08/30/2019 11:50 AM T [facility] Comment:Reference Range vari es with fluid intake and diet. MICROALBUMIN/C REAT RATIO, UR 22.2(H) <17.0 mg/g 08/30/2019 11:50 AM T [facility] Urine URINE SPECIMEN OBTAINED BY CLEAN CATCH PROCEDURE / Unknown Collection / Unknown 08/30/2019 9:10 AM CDT 08/30/2019 9:10 AM CDT Narrative [facility] - 08/30/2019 11:50 AM CDT Condition ? Microalbumin/Creat ratio Normal Males ? <17 Normal Females ? <25 Microalbuminuria Males ?17-299 Microalbuminuria Females ?25-299 Overt proteinuria ? >=300 K Eligio Ferro MD URINE ORDERABLES Final Result [facility] CLIA# [id number] [place] [address] * LIPID PANEL (08/30/2019 9:09 AM CDT) CHOLESTEROL 153 <200 mg/dL 08/30/2019 11:39 AM CDT [facility] TRIGLYCERIDE 139 <150 mg/dL 08/30/2019 11:39 AM CDT [facility] HDL 45 40 - 59 mg/dL 08/30/2019 11:39 AM CDT [facility] LDL CALCULATED 80 <100 mg/dL 08/30/2019 11:39 AM CDT [facility] NON-HDL CHOLESTEROL 108 <130 mg/dL 08/30/2019 11:39 AM CDT [facility] Blood Venipuncture / Unknown 08/30/2019 9:09 AM CDT 08/30/2019 9:10 AM CDT [facility] [employer] [facility] - 08/30/2019 11:39 AM CDT TOTAL CHOLESTEROL [...] Ferro MD CHEMISTRY ORDERABLES Final Re sult [facility] [id number] [address] [place] [address] from Last 3 Months or Most Recently Relevant to Health [place] [address] MEDICARE PART A AND B [facility] DE[place]RE ANDREWS [id number] Advance Directives For more information, please contact: [phone] * Full Code (Latest Code Status on File) Date Activated Date Inactivated Comments 06/22/2015 9:16 AM 06/22/2015 3:37 PM * Full Code Date Activated Date Inactivated Comments 06/22/2015 5:53 AM 06/22/2015 9:16 AM Care Teams Mechanical Development Engineer Relationship Specialty Start Date End Date Sebastian Noguera Jr., MD PCP - General Family Practice 06/02/15
--- OUTSIDE RECORDS SUMMARY | 2024-04-10 17:13 | XMS_ITS | Encounter Summary ---
Author Organization [facility] Address [address] [place] [address] Care Team Providers Care Sap Bi Architect Name Role Phone Chuckie Chavira MD, Sebastian Grace Primary Care Provid er Encounter Details Date Type Department Care Team (Latest Contact Info) Description 04/07/2024 Travel Social History Tobacco Use Types Packs/Day [...] any time in the past 12 m [facility], were you homeless or living in a assisted (including now)? Patient declined 04/07/2024 Sex and [...] No 04/07/2024 documented as of this encounter Plan of Treatment Not on file documented as of this encounter Visit Diagnoses Not on filedocumented in this encounter Care Teams Sap Bi Architect Relationship Specialty Start [place] [id number] [address] [facility] [address] [place] [address] PCP - General Family Medicine 04/07/24 documented as of this encounter
== END 2024-04-07 04:08 | disposition short-term general hospital (02) | DRG 522 ==
LOC: ANHED 12:12 → ANH3MEDSUR 21:55
PROVIDERS: Nurse Practitioner Acute Care; Nurse Practitioner Adult Health; Nurse Practitioner Gerontology; Orthopaedic Surgery; Physician Assistant; Admitting Provider Internal Medicine; Emergency Provider Student in an Organized Health Care Education/Training Program; Visit Provider Internal Medicine
PROC: 0SRR019 Replacement of Right Hip Joint, Femoral Surface with Metal Synthetic Substitute, Cemented, Open Approach (ICD-10-PCS; CPT 27125; principal; 2024-04-01 17:00)
DX: S72.011A Unspecified intracapsular fracture of right femur, initial encounter for closed fracture (principal); E87.1 Hypo-osmolality and hyponatremia; I31.39 Other pericardial effusion (noninflammatory); R65.10 Systemic inflammatory response syndrome (SIRS) of non-infectious origin without acute organ dysfunction; K81.0 Acute cholecystitis; T85.528A Displacement of other gastrointestinal prosthetic devices, implants and grafts, initial encounter; I95.1 Orthostatic hypotension; E11.65 Type 2 diabetes mellitus with hyperglycemia; K31.89 Other diseases of stomach and duodenum; K29.60 Other gastritis without bleeding; E87.6 Hypokalemia; K56.41 Fecal impaction; R00.0 Tachycardia, unspecified; F32.A Depression, unspecified; E03.9 Hypothyroidism, unspecified; R82.90 Unspecified abnormal findings in urine; D72.829 Elevated white blood cell count, unspecified; W19.XXXA Unspecified fall, initial encounter; E11.42 Type 2 diabetes mellitus with diabetic polyneuropathy; E78.5 Hyperlipidemia, unspecified; I10 Essential (primary) hypertension; Z96.1 Presence of intraocular lens; Z98.49 Cataract extraction status, unspecified eye
CPT/HCPCS: 36415; 71045; 71260; 73502; 73562; 74018; 74177; 80048; 80053; 81001; 82010; 82248; 82533; 82550; 82948; 83036; 83605; 83735; 83935; 84100; 84300; 84439; 84443; 84480; 84484; 85025; 85610; 85730; 86850; 86900; 86901; 87040; 87086; 87637; 93005; 93880; 96361; 96374; 96375; 97110; 97161; 97165; 97530; 97535; 99285; A9270; C1713; C1776; C8929; J0171; J0690; J1100; J1171; J1200; J1650; J1815; J1885; J2003; J2270; J2405; J2470; J2543; J2704; J2765; J2795; J3010; J3480; J7030; J7040; J7050; J7120; Q9957; Q9967